=== PATIENT | female | born 1965 | race Caucasian/White ===

== ENCOUNTER 2016-09-19 21:35 | Inpatient (IN) | payer MEDICAID ==
[~2016-09-19] VITALS: Ht 170.2 cm; Wt 84.0 kg
[~2016-09-19 21:35] MED LIST: LISI-662 PO; METF500T4 PO; RISPC25 IM
[2016-09-19 22:11] LABS: GLUCOSE,POINT OF CARE 94 MG/DL (70-110)
[2016-09-19 22:58] LABS: BASOPHILS # (AUTO) 0.01 K/uL (0.00-0.20); BASOPHILS % (AUTO) 0.3 % (0.0-2.0); EOSINOPHILS # (AUTO) 0.08 K/uL (0.00-0.70); EOSINOPHILS % (AUTO) 1.55 % (1.0-6.0); HEMATOCRIT 38.5 % (36-46); HEMOGLOBIN 13.4 g/dL (12.0-16.0); LYMPHOCYTES # (AUTO) 1.3 K/uL (1.0-4.8); LYMPHOCYTES % (AUTO) 24.9 % (22.0-44.0); MEAN CORPUSCULAR HEMOGLOBIN 33.3 pg (26.0-34.0); MEAN CORPUSCULAR HGB CONC 34.8 G/dL (31.0-37.0); MEAN CORPUSCULAR VOLUME 96 fL (80-100); MONOCYTES # (AUTO) 0.4 K/uL (0.1-1.0); MONOCYTES % (AUTO) 7.4 % (2.0-9.0); NEUTROPHILS # (AUTO) 3.4 K/uL (1.8-7.7); NEUTROPHILS % (AUTO) 65.9 % (40.0-70.0); PLATELET COUNT (AUTO) 228 K/uL (150-450); RED BLOOD CELL COUNT(AUTO) 4.03 MIL/uL (4.00-5.20); RED CELL DISTRIBUTION WIDTH 13.2 % (11.5-14.5); WHITE BLOOD COUNT (AUTO) 5.2 K/uL (4.5-11.0)
[2016-09-19 23:07] LABS: ANION GAP 7 mmol/L (8-16); CALCIUM, TOTAL 9.3 mg/dL (8.8-10.5); CARBON DIOXIDE 27 mmol/L (22-29); CHLORIDE 102 mmol/L (98-107); CREATININE 0.78 mg/dL (0.60-1.30); GLOMERULAR FILTR. RATE CALC > 60 mL/min (>60); POTASSIUM 4.1 mmol/L (3.5-5.1); SODIUM SERUM 136 mmol/L (136-145); UREA NITROGEN, BLOOD 16 mg/dL (7-18)
[2016-09-19 23:14] LABS: ALANINE AMINOTRANSFERASE 19 U/L (12-78); ALBUMIN 3.7 g/dL (3.4-5.0); ASPARTATE AMINOTRANSFERASE 9 U/L (15-37); BILIRUBIN,TOTAL 0.3 mg/dL (0.1-1.0); TOTAL PROTEIN, SERUM 7.3 g/dL (6.4-8.2)
[2016-09-20] MEDS ORDERED: HALOPERIDOL 5 MG TABLET PO PRN (03:15)
[2016-09-20] MEDS ORDERED: ZOLPIDEM TARTRATE 10 MG TABLET PO PRN (03:15)
[2016-09-20 05:03] VITALS: BP 110/68
[2016-09-20] MEDS ORDERED: -PHARMACY VACCINE NOTE- MISC ONE ×2 (06:15)
[2016-09-20] MEDS ORDERED: INFLUENZA VIRUS VACCINE QVS 2016-17 (3YR+)/PF 60 MCG/0.5 ML SYRINGE IM ONE (06:15)
[2016-09-20 06:27] VITALS: BP 115/68
[2016-09-20 06:31] LABS: GLUCOSE,POINT OF CARE 91 MG/DL (70-110)
[2016-09-20] MEDS ORDERED: NICOTINE 14 MG/24 HOUR PATCH TD ONE (09:00)
[2016-09-20 16:09] VITALS: BP 124/68
[2016-09-21 08:15] VITALS: BP 125/65
[2016-09-21 16:05] VITALS: BP 121/69
[2016-09-21] MEDS: HALOPERIDOL 5 MG TABLET PO SCH (16:38)
[2016-09-21] MEDS: DIVALPROEX SODIUM 500 MG DR TABLET PO SCH (20:11)
[2016-09-22 08:01] VITALS: BP 142/77
[2016-09-22] MEDS: CITALOPRAM HYDROBROMIDE 20 MG TABLET PO SCH (08:28)
[2016-09-22] MEDS: LORazepam 2 MG TABLET PO PRN ×2 (08:28→17:04)
[2016-09-22] MEDS: HALOPERIDOL 5 MG TABLET PO SCH ×2 (08:29→17:04)
[2016-09-22 17:33] VITALS: BP 120/73
[2016-09-22] MEDS: DIVALPROEX SODIUM 500 MG DR TABLET PO SCH (20:47)
[2016-09-23 08:01] VITALS: BP 155/88
[2016-09-23] MEDS: CITALOPRAM HYDROBROMIDE 20 MG TABLET PO SCH (08:13)
[2016-09-23] MEDS: HALOPERIDOL 5 MG TABLET PO SCH ×2 (08:13→16:02)
[2016-09-23] MEDS ORDERED: ALBUTEROL SULFATE HFA 90 MCG/PUFF 8 GM INHALER IH PRN (16:00)
[2016-09-23] MEDS: LORazepam 2 MG TABLET PO PRN (16:22)
[2016-09-23 16:31] VITALS: BP 141/92
[2016-09-23] MEDS: DIVALPROEX SODIUM 500 MG DR TABLET PO SCH (20:12)
[2016-09-24] MEDS: HALOPERIDOL 5 MG TABLET PO SCH (08:00)
[2016-09-24] MEDS: CITALOPRAM HYDROBROMIDE 20 MG TABLET PO SCH (08:00)
[2016-09-24 08:25] VITALS: BP 133/83
[2016-09-24] MEDS: LORazepam 2 MG TABLET PO PRN (09:21)
[2016-09-24] MEDS ORDERED: DIVA500T35 PO (12:00)
[2016-09-24] MEDS ORDERED: HALO5 PO (12:00)
[2016-09-24] MEDS ORDERED: CITA20TA9 PO (12:00)
[2016-09-25] MEDS ORDERED: MULTIVITAMINS WITH MINERALS, THERAPEUTIC TABLET PO SCH (09:00)
== END 2016-09-24 15:38 | disposition home or self-care (01) | DRG 750 ==
LOC: EMS 21:37 → B3A 09-20 03:17
PROVIDERS: ADMIT Psychiatry & Neurology Psychiatry; ATTEND Psychiatry & Neurology Psychiatry
PROC: 3E0234Z Introduction of Serum, Toxoid and Vaccine into Muscle, Percutaneous Approach (ICD-10-PCS; principal; 2016-09-20)
DX: F20.0 Paranoid schizophrenia (principal); E11.65 Type 2 diabetes mellitus with hyperglycemia; R45.851 Suicidal ideations; I10 Essential (primary) hypertension; E11.319 Type 2 diabetes mellitus with unspecified diabetic retinopathy without macular edema; E66.9 Obesity, unspecified; G47.00 Insomnia, unspecified; H54.8 Legal blindness, as defined in USA; K59.00 Constipation, unspecified; L20.9 Atopic dermatitis, unspecified; F32.9 Major depressive disorder, single episode, unspecified; F17.210 Nicotine dependence, cigarettes, uncomplicated; Z98.890 Other specified postprocedural states; Z88.8 Allergy status to other drugs, medicaments and biological substances; Z79.899 Other long term (current) drug therapy; Z94.7 Corneal transplant status; Z23 Encounter for immunization; Z68.21 Body mass index [BMI] 21.0-21.9, adult
CPT/HCPCS: 82962; 90471; 96372; 99285; G0480; J3535

== ENCOUNTER 2016-10-08 21:07 | Emergency (ER) | payer MEDICAID ==
[~2016-10-08] VITALS: Ht 167.6 cm; Wt 86.0 kg
[~2016-10-08 21:07] MED LIST changes: +CITA20TA9 PO; +DIVA500T35 PO; +HALO5 PO; -LISI-662 PO; -METF500T4 PO; -RISPC25 IM
[2016-10-08] MEDS ORDERED: METF500T4 PO (22:53)
[2016-10-09] MEDS ORDERED: LORazepam 2 MG TABLET PO ONE (01:00)
[2016-10-09] MEDS ORDERED: ALBUTEROL SULFATE HFA 90 MCG/PUFF 8 GM INHALER IH ONE (01:00)
[2016-10-09 01:27] VITALS: BP 121/82
== END 2016-10-09 01:37 | disposition home or self-care (01) ==
LOC: EMS 21:09
DX: F20.0 Paranoid schizophrenia (principal); F41.9 Anxiety disorder, unspecified; F31.9 Bipolar disorder, unspecified; E11.9 Type 2 diabetes mellitus without complications; I10 Essential (primary) hypertension; F17.210 Nicotine dependence, cigarettes, uncomplicated; Z88.8 Allergy status to other drugs, medicaments and biological substances
CPT/HCPCS: 82962; 99284; 99406; J3535

== ENCOUNTER 2016-10-24 10:02 | Emergency (ER) | payer MEDICAID ==
[~2016-10-24] VITALS: Ht 170.2 cm; Wt 88.6 kg
[~2016-10-24 10:02] MED LIST changes: -CITA20TA9 PO; +METF500T4 PO
[2016-10-24 10:22] LABS: GLUCOSE,POINT OF CARE 127 MG/DL (70-110)
[2016-10-24] MEDS ORDERED: KETOROLAC TROMETHAMINE 60 MG/2 ML VIAL IM ONE (11:45)
[2016-10-24 12:18] LABS: BASOPHILS % (AUTO) 0.2 % (0.0-2.0); EOSINOPHILS % (AUTO) 5.8 % (1.0-6.0); HEMATOCRIT 35.1 % (36-46); HEMOGLOBIN 11.8 g/dL (12.0-16.0); LYMPHOCYTES # (AUTO) 0.7 K/uL (1.0-4.8); LYMPHOCYTES % (AUTO) 7.4 % (22.0-44.0); MEAN CORPUSCULAR HGB CONC 33.5 G/dL (31.0-37.0); MEAN CORPUSCULAR VOLUME 96 fL (80-100); MONOCYTES # (AUTO) 0.5 K/uL (0.1-1.0); MONOCYTES % (AUTO) 5.5 % (2.0-9.0); NEUTROPHILS # (AUTO) 7.3 K/uL (1.8-7.7); NEUTROPHILS % (AUTO) 81.1 % (40.0-70.0); PLATELET COUNT (AUTO) 331 K/uL (150-450); RED BLOOD CELL COUNT(AUTO) 3.67 MIL/uL (4.00-5.20)
[2016-10-24 12:25] LABS: ANION GAP 8 mmol/L (8-16); CALCIUM, TOTAL 8.7 mg/dL (8.8-10.5); CARBON DIOXIDE 29 mmol/L (22-29); CHLORIDE 101 mmol/L (98-107); CREATININE 0.61 mg/dL (0.60-1.30); GLOMERULAR FILTR. RATE CALC > 60 mL/min (>60); SODIUM SERUM 138 mmol/L (136-145); UREA NITROGEN, BLOOD 10 mg/dL (7-18)
[2016-10-24 12:32] LABS: ALANINE AMINOTRANSFERASE 14 U/L (12-78); ALBUMIN 2.4 g/dL (3.4-5.0); ASPARTATE AMINOTRANSFERASE 9 U/L (15-37); BILIRUBIN,TOTAL 0.2 mg/dL (0.1-1.0); TOTAL PROTEIN, SERUM 7.2 g/dL (6.4-8.2)
[2016-10-24 13:43] LABS: ERYTHROCYTE SEDIMENTATION RATE 113 MM/HR (0-20)
[2016-10-24] MEDS ORDERED: HYDROCODONE/ACETAMINOPHEN 5-325 MG TABLET PO ONE (14:00)
[2016-10-24 14:09] VITALS: BP 142/93
== END 2016-10-24 14:40 | disposition home or self-care (01) ==
LOC: EMS 10:04
DX: S86.811A Strain of other muscle(s) and tendon(s) at lower leg level, right leg, initial encounter (principal); I77.6 Arteritis, unspecified; I10 Essential (primary) hypertension; E11.9 Type 2 diabetes mellitus without complications; F17.200 Nicotine dependence, unspecified, uncomplicated; X58.XXXA Exposure to other specified factors, initial encounter; Y93.89 Activity, other specified; Y92.89 Other specified places as the place of occurrence of the external cause; Y99.8 Other external cause status
CPT/HCPCS: 36415; 80053; 82962; 85025; 85651; 96372; 99284; J1885

== ENCOUNTER 2016-10-25 10:34 | Emergency (ER) | payer MEDICAID ==
[~2016-10-25] VITALS: Ht 170.2 cm; Wt 84.1 kg
[2016-10-25 11:27] LABS: GLUCOSE,POINT OF CARE 147 MG/DL (70-110)
[2016-10-25 12:18] LABS: GLUCOSE, URINE (UA) NEGATIVE (NEGATIVE); KETONES,URINE NEGATIVE (NEGATIVE); LEUKOCYTE ESTERASE ,URINE TRACE (NEGATIVE); OCCULT BLOOD,URINE NEGATIVE (NEGATIVE); PROTEIN,URINE NEGATIVE (NEGATIVE)
[2016-10-25 12:33] LABS: APPEARANCE,URINE HAZY (CLEAR)
[2016-10-25 12:37] LABS: RBC,URINE 0-2 /HPF (0-2); SQUAMOUS EPITHELIAL CELL,UR Rare /LPF (None Seen)
[2016-10-25] MEDS ORDERED: MethylPREDNISolone SOD SUCC 125 MG/2 ML VIAL IVP ONE (13:45)
[2016-10-25] MEDS ORDERED: ACETAMINOPHEN 1000 MG/ISO-OSM 100 ML IV ONE (14:15)
[2016-10-25] MEDS ORDERED: KETOROLAC TROMETHAMINE 30 MG/ML VIAL IVP ONE (14:15)
[2016-10-25 14:26] LABS: EOSINOPHILS % (AUTO) 7.7 % (1.0-6.0); HEMATOCRIT 34.1 % (36-46); HEMOGLOBIN 11.2 g/dL (12.0-16.0); LYMPHOCYTES # (AUTO) 0.9 K/uL (1.0-4.8); LYMPHOCYTES % (AUTO) 9.8 % (22.0-44.0); MEAN CORPUSCULAR HEMOGLOBIN 31.4 pg (26.0-34.0); MEAN CORPUSCULAR HGB CONC 32.8 G/dL (31.0-37.0); MEAN CORPUSCULAR VOLUME 96 fL (80-100); MONOCYTES # (AUTO) 0.5 K/uL (0.1-1.0); NEUTROPHILS # (AUTO) 6.7 K/uL (1.8-7.7); NEUTROPHILS % (AUTO) 76.5 % (40.0-70.0); PLATELET COUNT (AUTO) 369 K/uL (150-450); RED BLOOD CELL COUNT(AUTO) 3.56 MIL/uL (4.00-5.20); RED CELL DISTRIBUTION WIDTH 12.7 % (11.5-14.5); WHITE BLOOD COUNT (AUTO) 8.8 K/uL (4.5-11.0)
[2016-10-25 14:36] LABS: ANION GAP 7 mmol/L (8-16); CALCIUM, TOTAL 8.8 mg/dL (8.8-10.5); CARBON DIOXIDE 28 mmol/L (22-29); CHLORIDE 102 mmol/L (98-107); CREATININE 0.54 mg/dL (0.60-1.30); GLOMERULAR FILTR. RATE CALC > 60 mL/min (>60); POTASSIUM 3.8 mmol/L (3.5-5.1); SODIUM SERUM 137 mmol/L (136-145); UREA NITROGEN, BLOOD 6 mg/dL (7-18)
[2016-10-25 14:44] LABS: ALANINE AMINOTRANSFERASE 13 U/L (12-78); ALBUMIN 2.4 g/dL (3.4-5.0); ASPARTATE AMINOTRANSFERASE 9 U/L (15-37); BILIRUBIN,TOTAL 0.2 mg/dL (0.1-1.0)
[2016-10-25 15:57] LABS: ERYTHROCYTE SEDIMENTATION RATE 110 MM/HR (0-20)
[2016-10-25] MEDS ORDERED: ONDANSETRON HCL 4 MG/2 ML VIAL IVP ONE ×2 (16:15→19:00)
[2016-10-25] MEDS ORDERED: MORPHINE SULFATE 10 MG/ML SYRINGE IVP ONE (16:15)
[2016-10-25] MEDS ORDERED: ONDANSETRON HCL 4 MG/2 ML VIAL IM ONE (18:45)
[2016-10-25] MEDS ORDERED: MORPHINE SULFATE 4 MG/ML SYRINGE IM ONE (18:45)
[2016-10-25] MEDS ORDERED: MORPHINE SULFATE 4 MG/ML SYRINGE IVP ONE (19:00)
[2016-10-25 19:06] LABS: GLUCOSE,POINT OF CARE 158 MG/DL (70-110)
[2016-10-25 19:30] VITALS: BP 155/81
== END 2016-10-25 19:31 | disposition home or self-care (01) ==
LOC: EMS 10:40
DX: M02.30 Reiter's disease, unspecified site (principal); R70.0 Elevated erythrocyte sedimentation rate; B36.9 Superficial mycosis, unspecified; I10 Essential (primary) hypertension; E11.9 Type 2 diabetes mellitus without complications; F17.210 Nicotine dependence, cigarettes, uncomplicated
CPT/HCPCS: 36415; 80053; 81001; 82962; 85025; 85651; 96361; 96374; 96375; 96376; 99284; 99406; J0131; J1885; J2270 ×2; J2405; J2930

== ENCOUNTER 2016-11-05 22:15 | Emergency (ER) | payer MEDICAID ==
[~2016-11-05] VITALS: Ht 170.2 cm; Wt 84.0 kg
[2016-11-05 22:36] LABS: GLUCOSE,POINT OF CARE 100 MG/DL (70-110)
[2016-11-06] MEDS ORDERED: LISINOPRIL 10 MG TABLET PO ONE (03:30)
[2016-11-06 04:03] VITALS: BP 142/88
== END 2016-11-06 04:14 | disposition home or self-care (01) ==
LOC: EMS 22:19
DX: Z76.0 Encounter for issue of repeat prescription (principal); E11.319 Type 2 diabetes mellitus with unspecified diabetic retinopathy without macular edema; I10 Essential (primary) hypertension; G89.4 Chronic pain syndrome; E66.9 Obesity, unspecified; F17.210 Nicotine dependence, cigarettes, uncomplicated; Z68.29 Body mass index [BMI] 29.0-29.9, adult; Z88.8 Allergy status to other drugs, medicaments and biological substances
CPT/HCPCS: 82962; 99283

== ENCOUNTER 2016-11-20 16:20 | Inpatient (IN) | payer MEDICAID ==
[~2016-11-20] VITALS: Ht 170.2 cm; Wt 95.2 kg
[2016-11-20 17:03] LABS: ANION GAP 8 mmol/L (8-16); CALCIUM, TOTAL 8.9 mg/dL (8.8-10.5); CARBON DIOXIDE 27 mmol/L (22-29); CHLORIDE 103 mmol/L (98-107); CREATININE 0.71 mg/dL (0.60-1.30); GLOMERULAR FILTR. RATE CALC > 60 mL/min (>60); POTASSIUM 3.8 mmol/L (3.5-5.1); SODIUM SERUM 138 mmol/L (136-145); UREA NITROGEN, BLOOD 7 mg/dL (7-18)
[2016-11-20 17:05] LABS: BASOPHILS % (AUTO) 0.4 % (0.0-2.0); EOSINOPHILS % (AUTO) 1.3 % (1.0-6.0); HEMATOCRIT 39.1 % (36-46); HEMOGLOBIN 13.1 g/dL (12.0-16.0); LYMPHOCYTES # (AUTO) 1.2 K/uL (1.0-4.8); LYMPHOCYTES % (AUTO) 21.5 % (22.0-44.0); MEAN CORPUSCULAR HEMOGLOBIN 31.3 pg (26.0-34.0); MEAN CORPUSCULAR HGB CONC 33.5 G/dL (31.0-37.0); MEAN CORPUSCULAR VOLUME 93 fL (80-100); MONOCYTES # (AUTO) 0.3 K/uL (0.1-1.0); NEUTROPHILS # (AUTO) 4.1 K/uL (1.8-7.7); NEUTROPHILS % (AUTO) 70.8 % (40.0-70.0); RED BLOOD CELL COUNT(AUTO) 4.19 MIL/uL (4.00-5.20); RED CELL DISTRIBUTION WIDTH 13.7 % (11.5-14.5)
[2016-11-20 17:07] LABS: WHITE BLOOD COUNT (AUTO) 6.6 K/uL (4.5-11.0)
[2016-11-20 17:09] LABS: ALANINE AMINOTRANSFERASE 20 U/L (12-78); ALBUMIN 3.6 g/dL (3.4-5.0); ASPARTATE AMINOTRANSFERASE 10 U/L (15-37); BILIRUBIN,TOTAL 0.3 mg/dL (0.1-1.0); TOTAL PROTEIN, SERUM 7.3 g/dL (6.4-8.2)
[2016-11-20 17:22] LABS: VALPROIC ACID < 3 mcg/mL (50-100)
[2016-11-20] MEDS ORDERED: ZOLPIDEM TARTRATE 10 MG TABLET PO PRN (17:30)
[2016-11-20] MEDS ORDERED: LORazepam 1 MG TABLET PO ONE (17:45)
[2016-11-20] MEDS ORDERED: HALOPERIDOL 5 MG TABLET PO ONE (17:45)
[2016-11-20 17:49] LABS: PLATELET COUNT (AUTO) 269 K/uL (150-450)
[2016-11-20] MEDS ORDERED: INFLUENZA VIRUS VACCINE QVS 2016-17 (3YR+)/PF 60 MCG/0.5 ML SYRINGE IM ONE (18:30)
[2016-11-20 19:38] VITALS: BP 129/71
[2016-11-20 23:33] LABS: ADD UA MICROSCOPIC NO; APPEARANCE,URINE CLEAR (CLEAR); GLUCOSE, URINE (UA) NEGATIVE (NEGATIVE); KETONES,URINE NEGATIVE (NEGATIVE); LEUKOCYTE ESTERASE ,URINE NEGATIVE (NEGATIVE); OCCULT BLOOD,URINE NEGATIVE (NEGATIVE); PH,URINE 6.5 (5.0-8.0); PROTEIN,URINE NEGATIVE (NEGATIVE)
[2016-11-21 10:15] VITALS: BP 139/76
[2016-11-21] MEDS: MULTIVITAMINS WITH MINERALS, THERAPEUTIC TABLET PO SCH (10:23)
[2016-11-21] MEDS: NICOTINE 14 MG/24 HOUR PATCH TD SCH (10:26)
[2016-11-21] MEDS: HALOPERIDOL 5 MG TABLET PO PRN (10:55)
[2016-11-21] MEDS: LORazepam 2 MG TABLET PO PRN ×2 (10:55→17:04)
[2016-11-21 12:00] VITALS: BP 126/77
[2016-11-21 12:15] VITALS: BP 98/58
[2016-11-21 12:43] VITALS: BP 129/107
[2016-11-21 16:33] VITALS: BP 108/58
[2016-11-21] MEDS: HALOPERIDOL 5 MG TABLET PO SCH (16:43)
[2016-11-21 17:02] VITALS: BP 117/73
[2016-11-21 17:22] LABS: GLUCOSE,POINT OF CARE 96 MG/DL (70-110)
[2016-11-21] MEDS ORDERED: IBUPROFEN 400 MG TABLET PO PRN (17:45)
[2016-11-21] MEDS ORDERED: ALBUTEROL SULFATE HFA 90 MCG/PUFF 8 GM INHALER IH PRN (17:45)
[2016-11-21] MEDS ORDERED: ACETAMINOPHEN 325 MG TABLET PO PRN (17:45)
[2016-11-22] MEDS: MULTIVITAMINS WITH MINERALS, THERAPEUTIC TABLET PO SCH ×2 (09:00→10:21)
[2016-11-22] MEDS: HALOPERIDOL 5 MG TABLET PO SCH ×4 (09:00→16:30)
[2016-11-22] MEDS: OMEPRAZOLE 20 MG CAPSULE PO SCH ×2 (09:00→10:21)
[2016-11-22] MEDS: NICOTINE 14 MG/24 HOUR PATCH TD SCH (10:20)
[2016-11-22 11:21] LABS: GLUCOSE,POINT OF CARE 96 MG/DL (70-110)
[2016-11-22] MEDS ORDERED: HALOPERIDOL DECANOATE 100 MG/ML VIAL IM SCH (12:15)
[2016-11-22] MEDS: LORazepam 2 MG TABLET PO PRN (12:52)
[2016-11-22] MEDS: HALOPERIDOL 5 MG TABLET PO PRN (12:52)
[2016-11-22 16:32] LABS: GLUCOSE,POINT OF CARE 133 MG/DL (70-110)
[2016-11-22 16:43] VITALS: BP 118/79
[2016-11-22] MEDS: DIVALPROEX SODIUM 500 MG ER TABLET PO SCH (20:59)
[2016-11-23] MEDS: LORazepam 2 MG TABLET PO PRN ×2 (03:14→15:52)
[2016-11-23 03:29] VITALS: BP 142/82
[2016-11-23] MEDS: CITALOPRAM HYDROBROMIDE 20 MG TABLET PO SCH (09:36)
[2016-11-23] MEDS: MULTIVITAMINS WITH MINERALS, THERAPEUTIC TABLET PO SCH (09:36)
[2016-11-23] MEDS: OMEPRAZOLE 20 MG CAPSULE PO SCH (09:36)
[2016-11-23] MEDS: HALOPERIDOL 5 MG TABLET PO SCH ×2 (09:36→15:52)
[2016-11-23] MEDS: NICOTINE 14 MG/24 HOUR PATCH TD SCH (09:40)
[2016-11-23 16:22] LABS: GLUCOSE COMMENT 1 Received Meds; GLUCOSE,POINT OF CARE 159 MG/DL (70-110)
[2016-11-23 16:24] VITALS: BP 150/81
[2016-11-23] MEDS ORDERED: LOPERAMIDE HCL 2 MG CAPSULE PO PRN (19:00)
[2016-11-23] MEDS: DIVALPROEX SODIUM 500 MG ER TABLET PO SCH (20:02)
[2016-11-24] MEDS: CITALOPRAM HYDROBROMIDE 20 MG TABLET PO SCH (08:49)
[2016-11-24] MEDS: MULTIVITAMINS WITH MINERALS, THERAPEUTIC TABLET PO SCH (08:49)
[2016-11-24] MEDS: HALOPERIDOL 5 MG TABLET PO SCH ×2 (08:49→17:50)
[2016-11-24] MEDS: OMEPRAZOLE 20 MG CAPSULE PO SCH (08:49)
[2016-11-24] MEDS: NICOTINE 14 MG/24 HOUR PATCH TD SCH (08:53)
[2016-11-24 11:26] VITALS: BP 127/93
[2016-11-24 11:27] LABS: GLUCOSE,POINT OF CARE 98 MG/DL (70-110)
[2016-11-24] MEDS: LORazepam 2 MG TABLET PO PRN (12:31)
[2016-11-24] MEDS: HALOPERIDOL 5 MG TABLET PO PRN (14:15)
[2016-11-24 16:41] VITALS: BP 126/78
[2016-11-24] MEDS: DIVALPROEX SODIUM 500 MG ER TABLET PO SCH (21:00)
[2016-11-25 05:12] LABS: GLUCOSE,POINT OF CARE 91 MG/DL (70-110)
[2016-11-25] MEDS: MULTIVITAMINS WITH MINERALS, THERAPEUTIC TABLET PO SCH (09:27)
[2016-11-25] MEDS: OMEPRAZOLE 20 MG CAPSULE PO SCH (09:27)
[2016-11-25] MEDS: HALOPERIDOL 5 MG TABLET PO SCH ×3 (09:27→16:54)
[2016-11-25] MEDS: CITALOPRAM HYDROBROMIDE 20 MG TABLET PO SCH (09:28)
[2016-11-25] MEDS: NICOTINE 14 MG/24 HOUR PATCH TD SCH (09:29)
[2016-11-25] MEDS: LORazepam 2 MG TABLET PO PRN ×2 (10:43→16:55)
[2016-11-25] MEDS: HALOPERIDOL 5 MG TABLET PO PRN (10:44)
[2016-11-25 14:27] LABS: GLUCOSE,POINT OF CARE 89 MG/DL (70-110)
[2016-11-25 17:02] LABS: GLUCOSE COMMENT 1 FASTING; GLUCOSE,POINT OF CARE 86 MG/DL (70-110)
[2016-11-25] MEDS: DIVALPROEX SODIUM 500 MG ER TABLET PO SCH (21:21)
[2016-11-26] MEDS: OMEPRAZOLE 20 MG CAPSULE PO SCH (09:58)
[2016-11-26] MEDS: MULTIVITAMINS WITH MINERALS, THERAPEUTIC TABLET PO SCH (09:58)
[2016-11-26] MEDS: HALOPERIDOL 5 MG TABLET PO SCH (09:58)
[2016-11-26] MEDS: NICOTINE 14 MG/24 HOUR PATCH TD SCH (09:58)
[2016-11-26] MEDS: CITALOPRAM HYDROBROMIDE 20 MG TABLET PO SCH (09:58)
[2016-11-26] MEDS: LORazepam 2 MG TABLET PO PRN ×2 (10:09→14:20)
[2016-11-26 11:57] LABS: GLUCOSE,POINT OF CARE 107 MG/DL (70-110)
[2016-11-26] MEDS ORDERED: CITA20TA9 PO (13:36)
[2016-11-26] MEDS ORDERED: DIVA500T52 PO (13:37)
[2016-11-26] MEDS ORDERED: HALO5 PO (13:37)
[2016-11-26] MEDS ORDERED: HALOD100I IM (13:46)
[2016-11-26] MEDS ORDERED: MV-M1TAB2 PO (13:47)
[2016-11-26] MEDS ORDERED: OMEP20 PO (13:48)
[2016-11-26] MEDS: HALOPERIDOL 5 MG TABLET PO PRN (14:19)
== END 2016-11-26 14:45 | disposition home or self-care (01) | DRG 750 ==
LOC: EMS 16:24 → 3EI 19:00
PROVIDERS: ADMIT Psychiatry & Neurology Child & Adolescent Psychiatry; ATTEND Psychiatry & Neurology Child & Adolescent Psychiatry
PROC: 3E0234Z Introduction of Serum, Toxoid and Vaccine into Muscle, Percutaneous Approach (ICD-10-PCS; principal; 2016-11-20)
DX: F20.0 Paranoid schizophrenia (principal); R45.851 Suicidal ideations; J44.9 Chronic obstructive pulmonary disease, unspecified; E11.319 Type 2 diabetes mellitus with unspecified diabetic retinopathy without macular edema; E66.9 Obesity, unspecified; H54.8 Legal blindness, as defined in USA; J11.1 Influenza due to unidentified influenza virus with other respiratory manifestations; I10 Essential (primary) hypertension; H35.30 Unspecified macular degeneration; F17.210 Nicotine dependence, cigarettes, uncomplicated; K21.9 Gastro-esophageal reflux disease without esophagitis; E78.5 Hyperlipidemia, unspecified; Z94.7 Corneal transplant status; Z91.19 Patient's noncompliance with other medical treatment and regimen; Z68.32 Body mass index [BMI] 32.0-32.9, adult; Z91.5 Personal history of self-harm; Z23 Encounter for immunization
CPT/HCPCS: 82962; 99285; G0480; J1631; J3535

== ENCOUNTER 2016-12-16 14:03 | Inpatient (IN) | payer MEDICAID ==
[~2016-12-16] VITALS: Ht 167.6 cm; Wt 89.9 kg
[~2016-12-16 14:03] MED LIST changes: +CITA20TA9 PO; -DIVA500T35 PO; +DIVA500T52 PO; +HALOD100I IM; -METF500T4 PO; +MV-M1TAB2 PO; +OMEP20 PO
[2016-12-16 14:25] LABS: BASOPHILS % (AUTO) 0.3 % (0.0-2.0); EOSINOPHILS % (AUTO) 0.9 % (1.0-6.0); HEMATOCRIT 43.4 % (36-46); HEMOGLOBIN 14.1 g/dL (12.0-16.0); LYMPHOCYTES # (AUTO) 1.1 K/uL (1.0-4.8); LYMPHOCYTES % (AUTO) 14.7 % (22.0-44.0); MEAN CORPUSCULAR HEMOGLOBIN 30.4 pg (26.0-34.0); MEAN CORPUSCULAR HGB CONC 32.5 G/dL (31.0-37.0); MEAN CORPUSCULAR VOLUME 94 fL (80-100); MONOCYTES # (AUTO) 0.3 K/uL (0.1-1.0); MONOCYTES % (AUTO) 4.6 % (2.0-9.0); NEUTROPHILS % (AUTO) 79.5 % (40.0-70.0); PLATELET COUNT (AUTO) 335 K/uL (150-450); RED BLOOD CELL COUNT(AUTO) 4.63 MIL/uL (4.00-5.20); RED CELL DISTRIBUTION WIDTH 14.3 % (11.5-14.5); WHITE BLOOD COUNT (AUTO) 7.5 K/uL (4.5-11.0)
[2016-12-16 14:35] LABS: ANION GAP 11 mmol/L (8-16); CALCIUM, TOTAL 9.3 mg/dL (8.8-10.5); CARBON DIOXIDE 26 mmol/L (22-29); CHLORIDE 102 mmol/L (98-107); CREATININE 0.68 mg/dL (0.60-1.30); GLOMERULAR FILTR. RATE CALC > 60 mL/min (>60); POTASSIUM 3.8 mmol/L (3.5-5.1); SODIUM SERUM 139 mmol/L (136-145); UREA NITROGEN, BLOOD 10 mg/dL (7-18)
[2016-12-16 14:37] LABS: GLUCOSE,POINT OF CARE 110 MG/DL (70-110)
[2016-12-16 14:41] LABS: ALANINE AMINOTRANSFERASE 20 U/L (12-78); ALBUMIN 3.8 g/dL (3.4-5.0); ASPARTATE AMINOTRANSFERASE 7 U/L (15-37); BILIRUBIN,TOTAL 0.3 mg/dL (0.1-1.0); TOTAL PROTEIN, SERUM 7.5 g/dL (6.4-8.2)
[2016-12-16 14:44] LABS: VALPROIC ACID < 3 mcg/mL (50-100)
[2016-12-16] MEDS ORDERED: NICO1PAT25 TD (15:25)
[2016-12-16] MEDS ORDERED: OMEP20 PO (15:25)
[2016-12-16] MEDS ORDERED: HYDR-4031 PO (15:25)
[2016-12-16] MEDS ORDERED: METF500T4 PO (15:25)
[2016-12-16] MEDS ORDERED: ALBU8HFA4 IH (15:25)
[2016-12-16] MEDS ORDERED: VITAD1000 PO (15:25)
[2016-12-16] MEDS ORDERED: LISI-662 PO (15:25)
[2016-12-16] MEDS ORDERED: LORazepam 2 MG TABLET PO ONE (18:00)
[2016-12-16] MEDS: HALOPERIDOL 5 MG TABLET PO SCH (20:01)
[2016-12-16] MEDS: DIVALPROEX SODIUM 500 MG ER TABLET PO SCH (20:02)
[2016-12-16 20:03] VITALS: BP 150/86
[2016-12-16 20:06] LABS: GLUCOSE,POINT OF CARE 112 MG/DL (70-110)
[2016-12-16 21:05] VITALS: BP 142/78
[2016-12-17 06:17] VITALS: BP 140/76
[2016-12-17] MEDS: MetFORMIN HCL 500 MG TABLET PO SCH ×2 (07:00→16:52)
[2016-12-17] MEDS: MULTIVITAMINS, THERAPEUTIC TABLET PO SCH (08:25)
[2016-12-17] MEDS: LISINOPRIL 20 MG TABLET PO SCH (08:25)
[2016-12-17] MEDS: CITALOPRAM HYDROBROMIDE 20 MG TABLET PO SCH (08:25)
[2016-12-17] MEDS: OMEPRAZOLE 20 MG CAPSULE PO SCH (08:25)
[2016-12-17] MEDS: HALOPERIDOL 5 MG TABLET PO SCH ×2 (08:25→16:53)
[2016-12-17] MEDS: CHOLECALCIFEROL (VIT D3) 1,000 UNITS TABLET PO SCH (08:25)
[2016-12-17] MEDS: NICOTINE 7 MG/24 HOUR PATCH TD SCH (08:26)
[2016-12-17] MEDS: LORazepam 2 MG TABLET PO PRN (15:52)
[2016-12-17 16:00] VITALS: BP 129/65
[2016-12-17] MEDS: DIVALPROEX SODIUM 500 MG ER TABLET PO SCH (20:38)
[2016-12-18 00:02] VITALS: BP 101/71
[2016-12-18] MEDS: MetFORMIN HCL 500 MG TABLET PO SCH ×2 (06:37→17:10)
[2016-12-18 08:27] VITALS: BP 122/72
[2016-12-18] MEDS: CHOLECALCIFEROL (VIT D3) 1,000 UNITS TABLET PO SCH (08:55)
[2016-12-18] MEDS: CITALOPRAM HYDROBROMIDE 20 MG TABLET PO SCH (08:55)
[2016-12-18] MEDS: HALOPERIDOL 5 MG TABLET PO SCH ×2 (08:55→17:10)
[2016-12-18] MEDS: MULTIVITAMINS, THERAPEUTIC TABLET PO SCH (08:55)
[2016-12-18] MEDS: OMEPRAZOLE 20 MG CAPSULE PO SCH (08:55)
[2016-12-18] MEDS: LISINOPRIL 20 MG TABLET PO SCH (08:56)
[2016-12-18] MEDS: NICOTINE 7 MG/24 HOUR PATCH TD SCH (08:57)
[2016-12-18] MEDS: LORazepam 2 MG TABLET PO PRN (13:18)
[2016-12-18] MEDS: DIVALPROEX SODIUM 500 MG ER TABLET PO SCH (20:50)
[2016-12-19] MEDS: MetFORMIN HCL 500 MG TABLET PO SCH ×2 (06:12→17:03)
[2016-12-19 07:17] LABS: GLUCOSE,POINT OF CARE 177 MG/DL (70-110)
[2016-12-19 08:12] VITALS: BP 104/72
[2016-12-19] MEDS: OMEPRAZOLE 20 MG CAPSULE PO SCH (08:47)
[2016-12-19] MEDS: LISINOPRIL 20 MG TABLET PO SCH (08:47)
[2016-12-19] MEDS: CITALOPRAM HYDROBROMIDE 20 MG TABLET PO SCH (08:47)
[2016-12-19] MEDS: CHOLECALCIFEROL (VIT D3) 1,000 UNITS TABLET PO SCH (08:47)
[2016-12-19] MEDS: MULTIVITAMINS, THERAPEUTIC TABLET PO SCH (08:47)
[2016-12-19] MEDS: NICOTINE 7 MG/24 HOUR PATCH TD SCH (08:48)
[2016-12-19] MEDS: HALOPERIDOL 5 MG TABLET PO SCH ×2 (08:50→17:03)
[2016-12-19 08:53] VITALS: BP 119/79
[2016-12-19] MEDS: LORazepam 2 MG TABLET PO PRN ×2 (13:08→17:54)
[2016-12-19 17:36] VITALS: BP 117/79
[2016-12-19] MEDS: DIVALPROEX SODIUM 500 MG ER TABLET PO SCH (20:31)
[2016-12-20 05:55] VITALS: BP 129/74
[2016-12-20] MEDS: MetFORMIN HCL 500 MG TABLET PO SCH ×2 (07:00→16:33)
[2016-12-20 08:55] VITALS: BP 134/90
[2016-12-20] MEDS: LISINOPRIL 20 MG TABLET PO SCH (08:56)
[2016-12-20] MEDS: HALOPERIDOL 5 MG TABLET PO SCH ×2 (08:56→16:33)
[2016-12-20] MEDS: CHOLECALCIFEROL (VIT D3) 1,000 UNITS TABLET PO SCH (08:56)
[2016-12-20] MEDS: OMEPRAZOLE 20 MG CAPSULE PO SCH (08:56)
[2016-12-20] MEDS: CITALOPRAM HYDROBROMIDE 20 MG TABLET PO SCH (08:57)
[2016-12-20] MEDS: NICOTINE 7 MG/24 HOUR PATCH TD SCH (09:02)
[2016-12-20] MEDS: MULTIVITAMINS, THERAPEUTIC TABLET PO SCH (09:03)
[2016-12-20] MEDS: LORazepam 2 MG TABLET PO PRN (09:33)
[2016-12-20] MEDS ORDERED: TUBERCULIN, PURIFIED PROTEIN DERIVATIVE 5 TU/0.1 ML SYG ID ONE (10:30)
[2016-12-20 12:40] VITALS: BP 101/59
[2016-12-20 16:17] VITALS: BP 111/83
[2016-12-20 16:42] LABS: GLUCOSE COMMENT 1 Received Meds; GLUCOSE,POINT OF CARE 139 MG/DL (70-110)
[2016-12-20] MEDS: DIVALPROEX SODIUM 500 MG ER TABLET PO SCH (20:28)
[2016-12-20] MEDS: ZOLPIDEM TARTRATE 10 MG TABLET PO PRN (20:38)
[2016-12-21] MEDS: MetFORMIN HCL 500 MG TABLET PO SCH ×2 (06:35→16:18)
[2016-12-21] MEDS: NICOTINE 7 MG/24 HOUR PATCH TD SCH (08:37)
[2016-12-21] MEDS: LISINOPRIL 20 MG TABLET PO SCH (08:37)
[2016-12-21] MEDS: OMEPRAZOLE 20 MG CAPSULE PO SCH (08:38)
[2016-12-21] MEDS: CITALOPRAM HYDROBROMIDE 20 MG TABLET PO SCH (08:38)
[2016-12-21] MEDS: CHOLECALCIFEROL (VIT D3) 1,000 UNITS TABLET PO SCH (08:38)
[2016-12-21] MEDS: HALOPERIDOL 5 MG TABLET PO SCH ×2 (08:38→16:18)
[2016-12-21] MEDS: MULTIVITAMINS, THERAPEUTIC TABLET PO SCH (08:38)
[2016-12-21 08:41] VITALS: BP 133/113
[2016-12-21] MEDS: LORazepam 2 MG TABLET PO PRN (08:48)
[2016-12-21 10:00] VITALS: BP 126/78
[2016-12-21 16:00] VITALS: BP 115/78
[2016-12-21] MEDS: ZOLPIDEM TARTRATE 10 MG TABLET PO PRN ×2 (16:39→20:53)
[2016-12-21] MEDS: DIVALPROEX SODIUM 500 MG ER TABLET PO SCH (20:45)
[2016-12-22 06:00] VITALS: BP 109/79
[2016-12-22] MEDS: MetFORMIN HCL 500 MG TABLET PO SCH ×2 (07:30→16:53)
[2016-12-22 08:57] VITALS: BP 147/89
[2016-12-22] MEDS: LISINOPRIL 20 MG TABLET PO SCH (09:06)
[2016-12-22] MEDS: HALOPERIDOL 5 MG TABLET PO SCH ×2 (09:07→16:54)
[2016-12-22] MEDS: MULTIVITAMINS, THERAPEUTIC TABLET PO SCH (09:07)
[2016-12-22] MEDS: CITALOPRAM HYDROBROMIDE 20 MG TABLET PO SCH (09:07)
[2016-12-22] MEDS: CHOLECALCIFEROL (VIT D3) 1,000 UNITS TABLET PO SCH (09:07)
[2016-12-22] MEDS: NICOTINE 7 MG/24 HOUR PATCH TD SCH (09:07)
[2016-12-22] MEDS: OMEPRAZOLE 20 MG CAPSULE PO SCH (09:07)
[2016-12-22] MEDS: HALOPERIDOL 5 MG TABLET PO PRN (14:01)
[2016-12-22] MEDS: LORazepam 2 MG TABLET PO PRN ×2 (14:01→18:45)
[2016-12-22 14:07] VITALS: BP 103/60
[2016-12-22 16:00] VITALS: BP 110/68
[2016-12-22] MEDS: DIVALPROEX SODIUM 500 MG ER TABLET PO SCH (20:12)
[2016-12-22] MEDS: ZOLPIDEM TARTRATE 10 MG TABLET PO PRN (20:34)
[2016-12-23] VITALS (9 sets, daily range): BP systolic 103–126; BP diastolic 63–74
[2016-12-23] MEDS: MetFORMIN HCL 500 MG TABLET PO SCH ×2 (06:30→16:56)
[2016-12-23] MEDS: CHOLECALCIFEROL (VIT D3) 1,000 UNITS TABLET PO SCH (09:22)
[2016-12-23] MEDS: LISINOPRIL 20 MG TABLET PO SCH (09:23)
[2016-12-23] MEDS: HALOPERIDOL 5 MG TABLET PO SCH ×2 (09:23→16:56)
[2016-12-23] MEDS: CITALOPRAM HYDROBROMIDE 20 MG TABLET PO SCH (09:23)
[2016-12-23] MEDS: MULTIVITAMINS, THERAPEUTIC TABLET PO SCH (09:23)
[2016-12-23] MEDS: OMEPRAZOLE 20 MG CAPSULE PO SCH (09:23)
[2016-12-23] MEDS: NICOTINE 7 MG/24 HOUR PATCH TD SCH (09:24)
[2016-12-23 10:46] LABS: GLUCOSE,POINT OF CARE 145 MG/DL (70-110)
[2016-12-23] MEDS ORDERED: LOPERAMIDE HCL 2 MG CAPSULE PO PRN (12:15)
[2016-12-23] MEDS: LORazepam 2 MG TABLET PO PRN ×2 (16:56→21:49)
[2016-12-23] MEDS: HALOPERIDOL 5 MG TABLET PO PRN (17:40)
[2016-12-23] MEDS: DIVALPROEX SODIUM 500 MG ER TABLET PO SCH (20:06)
[2016-12-23] MEDS: ZOLPIDEM TARTRATE 10 MG TABLET PO PRN (21:28)
[2016-12-24 05:52] VITALS: BP 122/78
[2016-12-24] MEDS: MetFORMIN HCL 500 MG TABLET PO SCH ×2 (06:14→16:55)
[2016-12-24 08:37] VITALS: BP 132/78
[2016-12-24] MEDS: NICOTINE 7 MG/24 HOUR PATCH TD SCH (08:39)
[2016-12-24] MEDS: MULTIVITAMINS, THERAPEUTIC TABLET PO SCH (08:39)
[2016-12-24] MEDS: CHOLECALCIFEROL (VIT D3) 1,000 UNITS TABLET PO SCH (08:40)
[2016-12-24] MEDS: CITALOPRAM HYDROBROMIDE 20 MG TABLET PO SCH (08:40)
[2016-12-24] MEDS: LISINOPRIL 20 MG TABLET PO SCH (08:40)
[2016-12-24] MEDS: OMEPRAZOLE 20 MG CAPSULE PO SCH (08:40)
[2016-12-24] MEDS: HALOPERIDOL 5 MG TABLET PO SCH ×2 (08:40→16:55)
[2016-12-24] MEDS: LORazepam 2 MG TABLET PO PRN ×2 (10:02→20:56)
[2016-12-24 11:47] LABS: GLUCOSE,POINT OF CARE 110 MG/DL (70-110)
[2016-12-24] MEDS ORDERED: NICO14T TD (13:31)
[2016-12-24 16:13] VITALS: BP 108/66
[2016-12-24] MEDS: DIVALPROEX SODIUM 500 MG ER TABLET PO SCH (20:56)
[2016-12-24] MEDS: HALOPERIDOL 5 MG TABLET PO PRN (20:58)
[2016-12-25 06:27] VITALS: BP 128/74
[2016-12-25] MEDS: MetFORMIN HCL 500 MG TABLET PO SCH ×2 (07:00→17:48)
[2016-12-25 08:20] LABS: ALANINE AMINOTRANSFERASE 17 U/L (12-78); ANION GAP 5 mmol/L (8-16); ASPARTATE AMINOTRANSFERASE 5 U/L (15-37); BASOPHILS % (AUTO) 0.1 % (0.0-2.0); BILIRUBIN,TOTAL 0.3 mg/dL (0.1-1.0); CALCIUM, TOTAL 8.8 mg/dL (8.8-10.5); CARBON DIOXIDE 29 mmol/L (22-29); CHLORIDE 100 mmol/L (98-107); CREATININE 0.49 mg/dL (0.60-1.30); EOSINOPHILS % (AUTO) 3.1 % (1.0-6.0); GLOMERULAR FILTR. RATE CALC > 60 mL/min (>60); HEMATOCRIT 38.3 % (36-46); HEMOGLOBIN 12.6 g/dL (12.0-16.0); LYMPHOCYTES # (AUTO) 1.5 K/uL (1.0-4.8); MEAN CORPUSCULAR HEMOGLOBIN 30.8 pg (26.0-34.0); MEAN CORPUSCULAR VOLUME 93 fL (80-100); MONOCYTES # (AUTO) 0.3 K/uL (0.1-1.0); MONOCYTES % (AUTO) 7.2 % (2.0-9.0); NEUTROPHILS # (AUTO) 2.7 K/uL (1.8-7.7); NEUTROPHILS % (AUTO) 57.6 % (40.0-70.0); PLATELET COUNT (AUTO) 168 K/uL (150-450); POTASSIUM 3.8 mmol/L (3.5-5.1); SODIUM SERUM 134 mmol/L (136-145); TOTAL PROTEIN, SERUM 6.2 g/dL (6.4-8.2); UREA NITROGEN, BLOOD 14 mg/dL (7-18); VALPROIC ACID 86 mcg/mL (50-100); WHITE BLOOD COUNT (AUTO) 4.8 K/uL (4.5-11.0)
[2016-12-25 08:32] VITALS: BP 124/70
[2016-12-25] MEDS: NICOTINE 7 MG/24 HOUR PATCH TD SCH ×4 (09:00→12:32)
[2016-12-25] MEDS: CITALOPRAM HYDROBROMIDE 20 MG TABLET PO SCH (09:58)
[2016-12-25] MEDS: CHOLECALCIFEROL (VIT D3) 1,000 UNITS TABLET PO SCH (09:58)
[2016-12-25] MEDS: MULTIVITAMINS, THERAPEUTIC TABLET PO SCH (09:58)
[2016-12-25] MEDS: OMEPRAZOLE 20 MG CAPSULE PO SCH (09:59)
[2016-12-25] MEDS: LORazepam 2 MG TABLET PO PRN ×2 (09:59→17:49)
[2016-12-25] MEDS: HALOPERIDOL 5 MG TABLET PO SCH ×2 (09:59→17:49)
[2016-12-25] MEDS: LISINOPRIL 20 MG TABLET PO SCH (10:00)
[2016-12-25 16:00] VITALS: BP 110/64
[2016-12-25] MEDS: DIVALPROEX SODIUM 500 MG ER TABLET PO SCH (20:54)
[2016-12-25] MEDS: ZOLPIDEM TARTRATE 10 MG TABLET PO PRN (20:54)
[2016-12-26 06:40] VITALS: BP 135/69
[2016-12-26] MEDS: MetFORMIN HCL 500 MG TABLET PO SCH ×2 (06:58→17:04)
[2016-12-26 08:25] VITALS: BP 133/86
[2016-12-26] MEDS: NICOTINE 7 MG/24 HOUR PATCH TD SCH (08:48)
[2016-12-26] MEDS: OMEPRAZOLE 20 MG CAPSULE PO SCH (08:48)
[2016-12-26] MEDS: CHOLECALCIFEROL (VIT D3) 1,000 UNITS TABLET PO SCH (08:49)
[2016-12-26] MEDS: HALOPERIDOL 5 MG TABLET PO SCH ×2 (08:49→17:03)
[2016-12-26] MEDS: CITALOPRAM HYDROBROMIDE 20 MG TABLET PO SCH (08:49)
[2016-12-26] MEDS: LISINOPRIL 20 MG TABLET PO SCH (08:49)
[2016-12-26] MEDS: MULTIVITAMINS, THERAPEUTIC TABLET PO SCH (08:49)
[2016-12-26] MEDS: LORazepam 2 MG TABLET PO PRN (10:18)
[2016-12-26 16:00] VITALS: BP 93/66
[2016-12-26] MEDS: ALBUTEROL SULFATE HFA 90 MCG/PUFF 8 GM INHALER IH PRN (19:30)
[2016-12-26] MEDS: DIVALPROEX SODIUM 500 MG ER TABLET PO SCH (20:40)
[2016-12-26 21:00] VITALS: BP 140/89
[2016-12-26] MEDS: ZOLPIDEM TARTRATE 10 MG TABLET PO PRN (21:08)
[2016-12-27 05:11] VITALS: BP 113/64
[2016-12-27] MEDS: MetFORMIN HCL 500 MG TABLET PO SCH ×2 (07:11→16:45)
[2016-12-27 08:09] VITALS: BP 122/74
[2016-12-27] MEDS: CHOLECALCIFEROL (VIT D3) 1,000 UNITS TABLET PO SCH (08:55)
[2016-12-27] MEDS: HALOPERIDOL 5 MG TABLET PO SCH ×3 (08:55→16:48)
[2016-12-27] MEDS: CITALOPRAM HYDROBROMIDE 20 MG TABLET PO SCH (08:55)
[2016-12-27] MEDS: OMEPRAZOLE 20 MG CAPSULE PO SCH (08:55)
[2016-12-27] MEDS: NICOTINE 7 MG/24 HOUR PATCH TD SCH (08:55)
[2016-12-27] MEDS: MULTIVITAMINS, THERAPEUTIC TABLET PO SCH (08:55)
[2016-12-27] MEDS: LISINOPRIL 20 MG TABLET PO SCH (08:55)
[2016-12-27] MEDS: ALBUTEROL SULFATE HFA 90 MCG/PUFF 8 GM INHALER IH PRN (09:37)
[2016-12-27] MEDS: LORazepam 2 MG TABLET PO PRN ×2 (14:19→18:48)
[2016-12-27 17:06] VITALS: BP 105/62
[2016-12-27] MEDS: DIVALPROEX SODIUM 500 MG ER TABLET PO SCH (20:28)
[2016-12-28] MEDS: MetFORMIN HCL 500 MG TABLET PO SCH ×2 (07:27→17:28)
[2016-12-28 08:40] VITALS: BP 129/75
[2016-12-28] MEDS: CHOLECALCIFEROL (VIT D3) 1,000 UNITS TABLET PO SCH (08:43)
[2016-12-28] MEDS: HALOPERIDOL 5 MG TABLET PO SCH ×2 (08:43→17:27)
[2016-12-28] MEDS: CITALOPRAM HYDROBROMIDE 20 MG TABLET PO SCH (08:43)
[2016-12-28] MEDS: NICOTINE 7 MG/24 HOUR PATCH TD SCH (08:43)
[2016-12-28] MEDS: MULTIVITAMINS, THERAPEUTIC TABLET PO SCH (08:43)
[2016-12-28] MEDS: LISINOPRIL 20 MG TABLET PO SCH (08:43)
[2016-12-28] MEDS: OMEPRAZOLE 20 MG CAPSULE PO SCH (08:44)
[2016-12-28] MEDS: LORazepam 2 MG TABLET PO PRN ×2 (12:31→17:28)
[2016-12-28 16:23] VITALS: BP 122/63
[2016-12-28] MEDS: ALBUTEROL SULFATE HFA 90 MCG/PUFF 8 GM INHALER IH PRN (18:25)
[2016-12-28] MEDS: DIVALPROEX SODIUM 500 MG ER TABLET PO SCH (21:04)
[2016-12-29 06:30] VITALS: BP 110/73
[2016-12-29] MEDS: MetFORMIN HCL 500 MG TABLET PO SCH ×2 (06:58→17:15)
[2016-12-29 08:55] VITALS: BP 122/62
[2016-12-29] MEDS: CHOLECALCIFEROL (VIT D3) 1,000 UNITS TABLET PO SCH (09:05)
[2016-12-29] MEDS: MULTIVITAMINS, THERAPEUTIC TABLET PO SCH (09:05)
[2016-12-29] MEDS: NICOTINE 7 MG/24 HOUR PATCH TD SCH (09:05)
[2016-12-29] MEDS: LISINOPRIL 20 MG TABLET PO SCH (09:05)
[2016-12-29] MEDS: OMEPRAZOLE 20 MG CAPSULE PO SCH (09:05)
[2016-12-29] MEDS: CITALOPRAM HYDROBROMIDE 20 MG TABLET PO SCH (09:05)
[2016-12-29] MEDS: HALOPERIDOL 5 MG TABLET PO SCH ×2 (09:06→17:15)
[2016-12-29] MEDS: LORazepam 2 MG TABLET PO PRN (10:59)
[2016-12-29 16:00] VITALS: BP 106/68
[2016-12-29] MEDS: ALBUTEROL SULFATE HFA 90 MCG/PUFF 8 GM INHALER IH PRN (18:34)
[2016-12-29] MEDS: ZOLPIDEM TARTRATE 10 MG TABLET PO PRN (20:49)
[2016-12-29] MEDS: DIVALPROEX SODIUM 500 MG ER TABLET PO SCH (20:49)
[2016-12-30 06:07] VITALS: BP 126/78
[2016-12-30] MEDS: MetFORMIN HCL 500 MG TABLET PO SCH ×2 (06:45→16:34)
[2016-12-30 08:10] VITALS: BP 120/82
[2016-12-30] MEDS: NICOTINE 7 MG/24 HOUR PATCH TD SCH (09:00)
[2016-12-30] MEDS: HALOPERIDOL 5 MG TABLET PO SCH ×2 (09:50→16:34)
[2016-12-30] MEDS: MULTIVITAMINS, THERAPEUTIC TABLET PO SCH (09:50)
[2016-12-30] MEDS: LISINOPRIL 20 MG TABLET PO SCH (09:50)
[2016-12-30] MEDS: CHOLECALCIFEROL (VIT D3) 1,000 UNITS TABLET PO SCH (09:50)
[2016-12-30] MEDS: OMEPRAZOLE 20 MG CAPSULE PO SCH (09:51)
[2016-12-30] MEDS: CITALOPRAM HYDROBROMIDE 20 MG TABLET PO SCH (09:51)
[2016-12-30] MEDS: HALOPERIDOL 5 MG TABLET PO PRN (10:59)
[2016-12-30 16:15] VITALS: BP 120/87
[2016-12-30] MEDS: LORazepam 2 MG TABLET PO PRN (17:35)
[2016-12-30] MEDS: DIVALPROEX SODIUM 500 MG ER TABLET PO SCH (20:42)
[2016-12-30] MEDS: ZOLPIDEM TARTRATE 10 MG TABLET PO PRN (20:43)
[2016-12-31 06:33] VITALS: BP 111/65
[2016-12-31] MEDS: MetFORMIN HCL 500 MG TABLET PO SCH ×2 (07:00→16:40)
[2016-12-31] MEDS: MULTIVITAMINS, THERAPEUTIC TABLET PO SCH (09:00)
[2016-12-31] MEDS: CITALOPRAM HYDROBROMIDE 20 MG TABLET PO SCH (09:01)
[2016-12-31] MEDS: LISINOPRIL 20 MG TABLET PO SCH (09:01)
[2016-12-31] MEDS: HALOPERIDOL 5 MG TABLET PO SCH ×2 (09:01→16:41)
[2016-12-31] MEDS: CHOLECALCIFEROL (VIT D3) 1,000 UNITS TABLET PO SCH (09:01)
[2016-12-31] MEDS: OMEPRAZOLE 20 MG CAPSULE PO SCH (09:01)
[2016-12-31] MEDS: NICOTINE 7 MG/24 HOUR PATCH TD SCH (09:04)
[2016-12-31 12:17] LABS: GLUCOSE,POINT OF CARE 94 MG/DL (70-110)
[2016-12-31] MEDS: LORazepam 2 MG TABLET PO PRN ×2 (12:20→16:41)
[2016-12-31 13:17] VITALS: BP 104/70
[2016-12-31 16:11] VITALS: BP 107/77
[2016-12-31] MEDS: DIVALPROEX SODIUM 500 MG ER TABLET PO SCH (20:29)
[2016-12-31] MEDS: HALOPERIDOL 5 MG TABLET PO PRN (20:29)
[2016-12-31] MEDS: ZOLPIDEM TARTRATE 10 MG TABLET PO PRN (20:30)
[2017-01-01] MEDS: MetFORMIN HCL 500 MG TABLET PO SCH ×2 (06:43→07:00)
[2017-01-01] MEDS ORDERED: HYDROCORTISONE 1% 30 GM OINTMENT TP SCH (09:00)
[2017-01-01 09:10] VITALS: BP 97/51
[2017-01-01] MEDS: CHOLECALCIFEROL (VIT D3) 1,000 UNITS TABLET PO SCH (09:25)
[2017-01-01] MEDS: CITALOPRAM HYDROBROMIDE 20 MG TABLET PO SCH (09:27)
[2017-01-01] MEDS: OMEPRAZOLE 20 MG CAPSULE PO SCH (09:27)
[2017-01-01] MEDS: MULTIVITAMINS, THERAPEUTIC TABLET PO SCH (09:27)
[2017-01-01] MEDS: LISINOPRIL 20 MG TABLET PO SCH (09:27)
[2017-01-01] MEDS: NICOTINE 7 MG/24 HOUR PATCH TD SCH (09:27)
[2017-01-01] MEDS: HALOPERIDOL 5 MG TABLET PO SCH (09:27)
[2017-01-01 09:40] VITALS: BP 116/72
== END 2017-01-01 13:00 | disposition home or self-care (01) | DRG 750 ==
LOC: EMS 14:05 → B3A 17:53 → B2S 12-17 17:19
PROVIDERS: ATTEND Psychiatry & Neurology Child & Adolescent Psychiatry
DX: F20.0 Paranoid schizophrenia (principal); F33.2 Major depressive disorder, recurrent severe without psychotic features; J44.9 Chronic obstructive pulmonary disease, unspecified; R45.851 Suicidal ideations; E11.319 Type 2 diabetes mellitus with unspecified diabetic retinopathy without macular edema; F25.0 Schizoaffective disorder, bipolar type; I10 Essential (primary) hypertension; E78.5 Hyperlipidemia, unspecified; K21.9 Gastro-esophageal reflux disease without esophagitis; H54.8 Legal blindness, as defined in USA; F17.200 Nicotine dependence, unspecified, uncomplicated; E66.9 Obesity, unspecified; J11.1 Influenza due to unidentified influenza virus with other respiratory manifestations; F41.9 Anxiety disorder, unspecified; Z53.29 Procedure and treatment not carried out because of patient's decision for other reasons; H35.30 Unspecified macular degeneration; Z88.8 Allergy status to other drugs, medicaments and biological substances; Z68.32 Body mass index [BMI] 32.0-32.9, adult; Z94.7 Corneal transplant status; Z79.899 Other long term (current) drug therapy
CPT/HCPCS: 82962; 87081; 99285; G0480; J3535

== ENCOUNTER 2017-01-04 02:05 | Inpatient (IN) | payer MEDICAID ==
[~2017-01-04] VITALS: Ht 167.6 cm; Wt 91.8 kg
[~2017-01-04 02:05] MED LIST changes: -HALOD100I IM; +LISI-662 PO; +METF500T4 PO; +VITAD1000 PO
[2017-01-04 02:17] LABS: GLUCOSE,POINT OF CARE 136 MG/DL (70-110)
[2017-01-04 03:07] LABS: BASOPHILS # (AUTO) 0.02 K/uL (0.00-0.20); BASOPHILS % (AUTO) 0.2 % (0.0-2.0); EOSINOPHILS # (AUTO) 0.06 K/uL (0.00-0.70); HEMATOCRIT 37.6 % (36-46); HEMOGLOBIN 12.5 g/dL (12.0-16.0); LYMPHOCYTES # (AUTO) 1.5 K/uL (1.0-4.8); LYMPHOCYTES % (AUTO) 20.3 % (22.0-44.0); MEAN CORPUSCULAR HEMOGLOBIN 31.2 pg (26.0-34.0); MEAN CORPUSCULAR HGB CONC 33.4 G/dL (31.0-37.0); MEAN CORPUSCULAR VOLUME 94 fL (80-100); MONOCYTES # (AUTO) 0.7 K/uL (0.1-1.0); MONOCYTES % (AUTO) 9.4 % (2.0-9.0); NEUTROPHILS % (AUTO) 69.3 % (40.0-70.0); PLATELET COUNT (AUTO) 214 K/uL (150-450); RED BLOOD CELL COUNT(AUTO) 4.02 MIL/uL (4.00-5.20); RED CELL DISTRIBUTION WIDTH 14.4 % (11.5-14.5); WHITE BLOOD COUNT (AUTO) 7.2 K/uL (4.5-11.0)
[2017-01-04 03:15] LABS: ANION GAP 5 mmol/L (8-16); CALCIUM, TOTAL 9.1 mg/dL (8.8-10.5); CARBON DIOXIDE 31 mmol/L (22-29); CHLORIDE 99 mmol/L (98-107); CREATININE 0.56 mg/dL (0.60-1.30); GLOMERULAR FILTR. RATE CALC > 60 mL/min (>60); POTASSIUM 3.7 mmol/L (3.5-5.1); SODIUM SERUM 135 mmol/L (136-145); UREA NITROGEN, BLOOD 13 mg/dL (7-18)
[2017-01-04 03:31] LABS: ALANINE AMINOTRANSFERASE 17 U/L (12-78); ALBUMIN 3.5 g/dL (3.4-5.0); ASPARTATE AMINOTRANSFERASE 8 U/L (15-37); BILIRUBIN,TOTAL 0.3 mg/dL (0.1-1.0)
[2017-01-04] MEDS ORDERED: HALOPERIDOL LACTATE 5 MG/ML VIAL IM ONE ×2 (03:45→04:30)
[2017-01-04] MEDS ORDERED: LORazepam 2 MG/ML VIAL IM ONE ×2 (03:45→04:30)
[2017-01-04 06:11] VITALS: BP 127/72
[2017-01-04 06:16] VITALS: BP 127/72
[2017-01-04 06:47] LABS: GLUCOSE,POINT OF CARE 124 MG/DL (70-110)
[2017-01-04] MEDS ORDERED: -PHARMACY VACCINE NOTE- MISC ONE ×2 (07:00)
[2017-01-04 08:08] VITALS: BP 117/67
[2017-01-04 08:36] LABS: CHOL/HDL RATIO 3.3 (3.9-5.7)
[2017-01-04 10:22] LABS: GLUCOSE,POINT OF CARE 156 MG/DL (70-110)
[2017-01-04] MEDS: LISINOPRIL 20 MG TABLET PO SCH (10:39)
[2017-01-04] MEDS: CHOLECALCIFEROL (VIT D3) 1,000 UNITS TABLET PO SCH (10:39)
[2017-01-04] MEDS: NICOTINE 14 MG/24 HOUR PATCH TD SCH (10:45)
[2017-01-04] MEDS: LORazepam 2 MG TABLET PO PRN ×2 (12:12→17:20)
[2017-01-04 16:00] VITALS: BP 117/71
[2017-01-04] MEDS: MetFORMIN HCL 500 MG TABLET PO SCH (17:20)
[2017-01-04] MEDS: HALOPERIDOL 5 MG TABLET PO PRN (17:20)
[2017-01-04] MEDS: DOCUSATE SODIUM 100 MG CAPSULE PO SCH (17:20)
[2017-01-04] MEDS: TraZODone HCL 100 MG TABLET PO SCH (21:31)
[2017-01-05 06:17] LABS: GLUCOSE,POINT OF CARE 92 MG/DL (70-110)
[2017-01-05] MEDS: MetFORMIN HCL 500 MG TABLET PO SCH ×2 (06:37→16:59)
[2017-01-05 06:41] VITALS: BP 124/73
[2017-01-05] MEDS: CHOLECALCIFEROL (VIT D3) 1,000 UNITS TABLET PO SCH (08:54)
[2017-01-05] MEDS: NICOTINE 14 MG/24 HOUR PATCH TD SCH (08:54)
[2017-01-05] MEDS: ARIPiprazole 5 MG TABLET PO SCH (08:54)
[2017-01-05] MEDS: CITALOPRAM HYDROBROMIDE 20 MG TABLET PO SCH (08:54)
[2017-01-05] MEDS: LISINOPRIL 20 MG TABLET PO SCH (08:54)
[2017-01-05] MEDS: DOCUSATE SODIUM 100 MG CAPSULE PO SCH ×2 (08:54→16:59)
[2017-01-05 09:00] VITALS: BP 112/75
[2017-01-05] MEDS: LORazepam 2 MG TABLET PO PRN ×2 (11:19→17:00)
[2017-01-05 16:17] VITALS: BP 122/72
[2017-01-05] MEDS: HALOPERIDOL 5 MG TABLET PO PRN (17:00)
[2017-01-05] MEDS: TraZODone HCL 100 MG TABLET PO SCH (20:06)
[2017-01-05] MEDS: ZOLPIDEM TARTRATE 10 MG TABLET PO PRN (20:07)
[2017-01-05] MEDS ORDERED: ACETAMINOPHEN 325 MG TABLET PO PRN (21:15)
[2017-01-06 06:35] VITALS: BP 126/80
[2017-01-06 06:42] LABS: GLUCOSE,POINT OF CARE 90 MG/DL (70-110)
[2017-01-06] MEDS ORDERED: MetFORMIN HCL 500 MG TABLET PO SCH (07:00)
[2017-01-06] MEDS: MetFORMIN HCL 500 MG TABLET PO SCH ×2 (07:33→17:00)
[2017-01-06 08:12] LABS: HEMOGLOBIN A1C 5.8 % (4.5-6.2)
[2017-01-06 08:19] VITALS: BP 104/68
[2017-01-06] MEDS: OMEPRAZOLE 20 MG CAPSULE PO SCH (08:19)
[2017-01-06] MEDS: DOCUSATE SODIUM 100 MG CAPSULE PO SCH ×2 (08:19→17:00)
[2017-01-06] MEDS: LISINOPRIL 20 MG TABLET PO SCH (08:19)
[2017-01-06] MEDS: MULTIVITAMINS WITH MINERALS, THERAPEUTIC TABLET PO SCH (08:19)
[2017-01-06] MEDS: CITALOPRAM HYDROBROMIDE 20 MG TABLET PO SCH (08:19)
[2017-01-06] MEDS: ARIPiprazole 5 MG TABLET PO SCH (08:19)
[2017-01-06] MEDS: NICOTINE 14 MG/24 HOUR PATCH TD SCH (08:20)
[2017-01-06] MEDS: CHOLECALCIFEROL (VIT D3) 1,000 UNITS TABLET PO SCH (08:20)
[2017-01-06 08:38] LABS: CHOL/HDL RATIO 3.5 (3.9-5.7); THYROID STIMULATING HORMONE 1.98 uIU/mL (0.36-3.74)
[2017-01-06] MEDS ORDERED: LISINOPRIL 20 MG TABLET PO SCH (09:00)
[2017-01-06] MEDS ORDERED: CHOLECALCIFEROL (VIT D3) 1,000 UNITS TABLET PO SCH (09:00)
[2017-01-06] MEDS: LORazepam 2 MG TABLET PO PRN ×2 (10:32→16:20)
[2017-01-06] MEDS: MAGNESIUM HYDROXIDE SUSPENSION 30 ML UDCUP PO PRN (11:58)
[2017-01-06] MEDS: HALOPERIDOL 5 MG TABLET PO PRN (16:20)
[2017-01-06 16:38] VITALS: BP 106/69
[2017-01-06] MEDS: TraZODone HCL 100 MG TABLET PO SCH (21:02)
[2017-01-06] MEDS: ZOLPIDEM TARTRATE 10 MG TABLET PO PRN (21:03)
[2017-01-06 21:38] LABS: GLUCOSE COMMENT 1 Received Meds; GLUCOSE,POINT OF CARE 123 MG/DL (70-110)
[2017-01-07] MEDS: MetFORMIN HCL 500 MG TABLET PO SCH ×2 (06:35→17:03)
[2017-01-07 06:42] LABS: GLUCOSE,POINT OF CARE 91 MG/DL (70-110)
[2017-01-07 06:45] VITALS: BP 112/84
[2017-01-07 09:06] VITALS: BP 126/72
[2017-01-07] MEDS: NICOTINE 14 MG/24 HOUR PATCH TD SCH (09:26)
[2017-01-07] MEDS: CITALOPRAM HYDROBROMIDE 20 MG TABLET PO SCH (09:27)
[2017-01-07] MEDS: LISINOPRIL 20 MG TABLET PO SCH (09:27)
[2017-01-07] MEDS: MULTIVITAMINS WITH MINERALS, THERAPEUTIC TABLET PO SCH (09:27)
[2017-01-07] MEDS: CHOLECALCIFEROL (VIT D3) 1,000 UNITS TABLET PO SCH (09:28)
[2017-01-07] MEDS: OMEPRAZOLE 20 MG CAPSULE PO SCH (09:28)
[2017-01-07] MEDS: DOCUSATE SODIUM 100 MG CAPSULE PO SCH ×2 (09:28→17:03)
[2017-01-07] MEDS: ARIPiprazole 5 MG TABLET PO SCH (09:28)
[2017-01-07] MEDS: HALOPERIDOL 5 MG TABLET PO PRN (10:40)
[2017-01-07] MEDS: BENZTROPINE MESYLATE 1 MG TABLET PO SCH ×2 (12:10→17:03)
[2017-01-07 16:09] VITALS: BP 100/66
[2017-01-07 17:01] LABS: GLUCOSE,POINT OF CARE 96 MG/DL (70-110)
[2017-01-07] MEDS: TraZODone HCL 100 MG TABLET PO SCH (20:05)
[2017-01-07] MEDS: ZOLPIDEM TARTRATE 10 MG TABLET PO PRN (21:51)
[2017-01-08 00:22] VITALS: BP 111/63
[2017-01-08] MEDS: LORazepam 2 MG TABLET PO PRN ×2 (00:23→19:08)
[2017-01-08] MEDS: MetFORMIN HCL 500 MG TABLET PO SCH ×2 (07:05→16:10)
[2017-01-08 08:20] VITALS: BP 115/68
[2017-01-08] MEDS: CHOLECALCIFEROL (VIT D3) 1,000 UNITS TABLET PO SCH (08:32)
[2017-01-08] MEDS: NICOTINE 14 MG/24 HOUR PATCH TD SCH (08:32)
[2017-01-08] MEDS: DOCUSATE SODIUM 100 MG CAPSULE PO SCH ×2 (08:32→16:10)
[2017-01-08] MEDS: MULTIVITAMINS WITH MINERALS, THERAPEUTIC TABLET PO SCH (08:32)
[2017-01-08] MEDS: LISINOPRIL 20 MG TABLET PO SCH (08:32)
[2017-01-08] MEDS: OMEPRAZOLE 20 MG CAPSULE PO SCH (08:32)
[2017-01-08] MEDS: BENZTROPINE MESYLATE 1 MG TABLET PO SCH ×2 (08:33→16:10)
[2017-01-08] MEDS: CITALOPRAM HYDROBROMIDE 20 MG TABLET PO SCH (08:33)
[2017-01-08] MEDS: ARIPiprazole 5 MG TABLET PO SCH (08:34)
[2017-01-08] MEDS: IBUPROFEN 400 MG TABLET PO PRN (16:09)
[2017-01-08 16:13] VITALS: BP 108/65
[2017-01-08 17:12] LABS: GLUCOSE,POINT OF CARE 111 MG/DL (70-110)
[2017-01-08] MEDS: HALOPERIDOL 5 MG TABLET PO PRN (18:34)
[2017-01-08] MEDS: TraZODone HCL 100 MG TABLET PO SCH (21:36)
[2017-01-09 06:02] VITALS: BP 108/66
[2017-01-09 06:16] LABS: GLUCOSE,POINT OF CARE 131 MG/DL (70-110)
[2017-01-09] MEDS: MetFORMIN HCL 500 MG TABLET PO SCH ×2 (06:38→17:07)
[2017-01-09 08:07] VITALS: BP 133/86
[2017-01-09] MEDS: NICOTINE 21 MG/24 HOUR PATCH TD SCH (08:24)
[2017-01-09] MEDS: ARIPiprazole 5 MG TABLET PO SCH (08:24)
[2017-01-09] MEDS: CITALOPRAM HYDROBROMIDE 20 MG TABLET PO SCH (08:25)
[2017-01-09] MEDS: DOCUSATE SODIUM 100 MG CAPSULE PO SCH ×2 (08:25→17:08)
[2017-01-09] MEDS: CHOLECALCIFEROL (VIT D3) 1,000 UNITS TABLET PO SCH (08:25)
[2017-01-09] MEDS: BENZTROPINE MESYLATE 1 MG TABLET PO SCH ×2 (08:25→17:08)
[2017-01-09] MEDS: OMEPRAZOLE 20 MG CAPSULE PO SCH (08:25)
[2017-01-09] MEDS: LISINOPRIL 20 MG TABLET PO SCH (08:25)
[2017-01-09] MEDS: MULTIVITAMINS WITH MINERALS, THERAPEUTIC TABLET PO SCH (08:25)
[2017-01-09] MEDS: LORazepam 2 MG TABLET PO PRN (09:21)
[2017-01-09 16:00] VITALS: BP 113/67
[2017-01-09 16:56] LABS: GLUCOSE,POINT OF CARE 113 MG/DL (70-110)
[2017-01-09] MEDS: TraZODone HCL 100 MG TABLET PO SCH (20:06)
[2017-01-09] MEDS: MAGNESIUM HYDROXIDE SUSPENSION 30 ML UDCUP PO PRN (20:06)
[2017-01-09] MEDS: HALOPERIDOL 5 MG TABLET PO PRN (20:07)
[2017-01-09] MEDS: ZOLPIDEM TARTRATE 10 MG TABLET PO PRN (21:40)
[2017-01-10 02:19] VITALS: BP 110/65
[2017-01-10] MEDS: MetFORMIN HCL 500 MG TABLET PO SCH ×2 (06:25→16:11)
[2017-01-10] MEDS: IBUPROFEN 400 MG TABLET PO PRN (06:26)
[2017-01-10 06:52] LABS: GLUCOSE,POINT OF CARE 113 MG/DL (70-110)
[2017-01-10 08:06] VITALS: BP 109/71
[2017-01-10] MEDS: LISINOPRIL 20 MG TABLET PO SCH (08:12)
[2017-01-10] MEDS: NICOTINE 21 MG/24 HOUR PATCH TD SCH (08:12)
[2017-01-10] MEDS: OMEPRAZOLE 20 MG CAPSULE PO SCH (08:13)
[2017-01-10] MEDS: CHOLECALCIFEROL (VIT D3) 1,000 UNITS TABLET PO SCH (08:13)
[2017-01-10] MEDS: BENZTROPINE MESYLATE 1 MG TABLET PO SCH ×2 (08:13→16:17)
[2017-01-10] MEDS: ARIPiprazole 5 MG TABLET PO SCH (08:13)
[2017-01-10] MEDS: MULTIVITAMINS WITH MINERALS, THERAPEUTIC TABLET PO SCH (08:13)
[2017-01-10] MEDS: CITALOPRAM HYDROBROMIDE 20 MG TABLET PO SCH (08:13)
[2017-01-10] MEDS: DOCUSATE SODIUM 100 MG CAPSULE PO SCH ×2 (08:13→16:11)
[2017-01-10] MEDS: MAGNESIUM HYDROXIDE SUSPENSION 30 ML UDCUP PO PRN (10:12)
[2017-01-10] MEDS ORDERED: TRAZ-147 PO (16:02)
[2017-01-10] MEDS ORDERED: DSS100 PO (16:02)
[2017-01-10] MEDS ORDERED: ARIP5TAB9 PO (16:02)
[2017-01-10] MEDS ORDERED: MV-M1TAB2 PO (16:02)
[2017-01-10] MEDS ORDERED: BENZ1TAB10 PO (16:02)
[2017-01-10] MEDS ORDERED: NICO21T TD (16:02)
[2017-01-10 16:40] LABS: GLUCOSE COMMENT 1 Received Meds; GLUCOSE,POINT OF CARE 129 MG/DL (70-110)
== END 2017-01-10 17:30 | disposition home or self-care (01) | DRG 750 ==
LOC: EMS 02:07 → B2S 04:17
PROVIDERS: ADMIT Psychiatry & Neurology Child & Adolescent Psychiatry; ATTEND Psychiatry & Neurology Child & Adolescent Psychiatry
PROC: GZHZZZZ Group Psychotherapy (ICD-10-PCS; principal; 2017-01-05)
DX: F25.0 Schizoaffective disorder, bipolar type (principal); I11.0 Hypertensive heart disease with heart failure; R45.851 Suicidal ideations; I50.9 Heart failure, unspecified; J44.9 Chronic obstructive pulmonary disease, unspecified; E11.319 Type 2 diabetes mellitus with unspecified diabetic retinopathy without macular edema; H54.8 Legal blindness, as defined in USA; E66.9 Obesity, unspecified; K21.9 Gastro-esophageal reflux disease without esophagitis; F17.210 Nicotine dependence, cigarettes, uncomplicated; F60.3 Borderline personality disorder; E78.5 Hyperlipidemia, unspecified; Z81.8 Family history of other mental and behavioral disorders; Z88.8 Allergy status to other drugs, medicaments and biological substances; Z94.7 Corneal transplant status; Z79.899 Other long term (current) drug therapy; Z68.32 Body mass index [BMI] 32.0-32.9, adult
CPT/HCPCS: 82962; 83036; 84443; 87081; 96372; 99285; G0480; J1630; J2060

== ENCOUNTER 2017-04-08 21:02 | Emergency (ER) | payer MEDICAID ==
[~2017-04-08] VITALS: Ht 167.6 cm; Wt 81.0 kg
[~2017-04-08 21:02] MED LIST changes: +ARIP5TAB9 PO; +BENZ1TAB10 PO; -DIVA500T52 PO; +DSS100 PO; -HALO5 PO; +NICO21T TD; +TRAZ-147 PO
[2017-04-08 21:48] LABS: GLUCOSE,POINT OF CARE 137 MG/DL (70-110)
[2017-04-08] MEDS ORDERED: KETOROLAC TROMETHAMINE 60 MG/2 ML VIAL IM ONE (22:30)
[2017-04-09 00:11] VITALS: BP 121/70
== END 2017-04-09 01:03 | disposition home or self-care (01) ==
LOC: EMS 21:04
DX: S39.012A Strain of muscle, fascia and tendon of lower back, initial encounter (principal); E11.9 Type 2 diabetes mellitus without complications; I10 Essential (primary) hypertension; E66.9 Obesity, unspecified; F17.210 Nicotine dependence, cigarettes, uncomplicated; Z68.28 Body mass index [BMI] 28.0-28.9, adult; Z88.8 Allergy status to other drugs, medicaments and biological substances; W19.XXXA Unspecified fall, initial encounter; Y93.89 Activity, other specified; Y92.89 Other specified places as the place of occurrence of the external cause; Y99.8 Other external cause status
CPT/HCPCS: 72100; 82962; 96372; 99284; 99406; J1885

== ENCOUNTER 2017-04-21 18:12 | Emergency (ER) | payer MEDICAID ==
[~2017-04-21] VITALS: Ht 172.7 cm; Wt 81.8 kg
[~2017-04-21 18:12] MED LIST changes: -ARIP5TAB9 PO; -CITA20TA9 PO; -DSS100 PO; -LISI-662 PO; -METF500T4 PO; -MV-M1TAB2 PO; -NICO21T TD; -OMEP20 PO; -VITAD1000 PO
[2017-04-21 19:27] LABS: BASOPHILS # (AUTO) 0.03 K/uL (0.00-0.20); BASOPHILS % (AUTO) 0.4 % (0.0-2.0); EOSINOPHILS # (AUTO) 0.07 K/uL (0.00-0.70); EOSINOPHILS % (AUTO) 1.04 % (1.0-6.0); HEMOGLOBIN 14.7 g/dL (12.0-16.0); LYMPHOCYTES # (AUTO) 1.6 K/uL (1.0-4.8); LYMPHOCYTES % (AUTO) 22.4 % (22.0-44.0); MEAN CORPUSCULAR HEMOGLOBIN 32.4 pg (26.0-34.0); MEAN CORPUSCULAR VOLUME 93 fL (80-100); MONOCYTES # (AUTO) 0.4 K/uL (0.1-1.0); MONOCYTES % (AUTO) 5.6 % (2.0-9.0); NEUTROPHILS % (AUTO) 70.5 % (40.0-70.0); PLATELET COUNT (AUTO) 206 K/uL (150-450); RED BLOOD CELL COUNT(AUTO) 4.53 MIL/uL (4.00-5.20); WHITE BLOOD COUNT (AUTO) 7.1 K/uL (4.5-11.0)
[2017-04-21 19:34] LABS: ANION GAP 11 mmol/L (8-16); CALCIUM, TOTAL 9.7 mg/dL (8.8-10.5); CARBON DIOXIDE 26 mmol/L (22-29); CHLORIDE 102 mmol/L (98-107); CREATININE 0.76 mg/dL (0.60-1.30); GLOMERULAR FILTR. RATE CALC > 60 mL/min (>60); POTASSIUM 3.7 mmol/L (3.5-5.1); SODIUM SERUM 139 mmol/L (136-145); UREA NITROGEN, BLOOD 13 mg/dL (7-18)
[2017-04-21 19:41] LABS: ALANINE AMINOTRANSFERASE 21 U/L (12-78); ALBUMIN 4.1 g/dL (3.4-5.0); ASPARTATE AMINOTRANSFERASE 14 U/L (15-37); BILIRUBIN,TOTAL 0.5 mg/dL (0.1-1.0); TOTAL PROTEIN, SERUM 7.6 g/dL (6.4-8.2)
[2017-04-21] MEDS ORDERED: HALOPERIDOL 5 MG TABLET PO ONE (20:15)
[2017-04-21 20:28] VITALS: BP 139/85
== END 2017-04-21 20:40 | disposition home or self-care (01) ==
LOC: EMS 18:13
DX: F25.1 Schizoaffective disorder, depressive type (principal); I10 Essential (primary) hypertension; F31.9 Bipolar disorder, unspecified; E11.319 Type 2 diabetes mellitus with unspecified diabetic retinopathy without macular edema; E66.9 Obesity, unspecified; F17.210 Nicotine dependence, cigarettes, uncomplicated; Z88.8 Allergy status to other drugs, medicaments and biological substances
CPT/HCPCS: 36415; 80053; 85025; 99284; 99406; G0480

== ENCOUNTER 2017-06-07 18:24 | Emergency (ER) | payer MEDICAID ==
[~2017-06-07] VITALS: Ht 170.2 cm; Wt 88.6 kg
[~2017-06-07 18:24] MED LIST changes: +ARIP10TA8 PO; +CITA20TA9 PO; +DOCU100C34 PO; +LISI-662 PO; +METF500T4 PO; +OMEP20 PO; +VITAD1000 PO
[2017-06-07] MEDS ORDERED: ATOR20TA86 PO (18:39)
[2017-06-07 18:42] LABS: GLUCOSE,POINT OF CARE 120 MG/DL (70-110)
[2017-06-07 19:14] LABS: BASOPHILS # (AUTO) 0.01 K/uL (0.00-0.20); BASOPHILS % (AUTO) 0.2 % (0.0-2.0); EOSINOPHILS # (AUTO) 0.16 K/uL (0.00-0.70); EOSINOPHILS % (AUTO) 2.36 % (1.0-6.0); HEMATOCRIT 39.6 % (36-46); HEMOGLOBIN 13.4 g/dL (12.0-16.0); LYMPHOCYTES # (AUTO) 1.1 K/uL (1.0-4.8); LYMPHOCYTES % (AUTO) 16.8 % (22.0-44.0); MEAN CORPUSCULAR HGB CONC 33.9 G/dL (31.0-37.0); MEAN CORPUSCULAR VOLUME 97 fL (80-100); MONOCYTES # (AUTO) 0.5 K/uL (0.1-1.0); MONOCYTES % (AUTO) 6.9 % (2.0-9.0); NEUTROPHILS # (AUTO) 4.9 K/uL (1.8-7.7); NEUTROPHILS % (AUTO) 73.7 % (40.0-70.0); PLATELET COUNT (AUTO) 175 K/uL (150-450); RED BLOOD CELL COUNT(AUTO) 4.07 MIL/uL (4.00-5.20); RED CELL DISTRIBUTION WIDTH 12.9 % (11.5-14.5); WHITE BLOOD COUNT (AUTO) 6.6 K/uL (4.5-11.0)
[2017-06-07 19:23] LABS: ANION GAP 7 mmol/L (8-16); CARBON DIOXIDE 29 mmol/L (22-29); CHLORIDE 105 mmol/L (98-107); CREATININE 0.75 mg/dL (0.60-1.30); GLOMERULAR FILTR. RATE CALC > 60 mL/min (>60); POTASSIUM 3.5 mmol/L (3.5-5.1); SODIUM SERUM 141 mmol/L (136-145); UREA NITROGEN, BLOOD 14 mg/dL (7-18)
[2017-06-07 19:29] LABS: ALANINE AMINOTRANSFERASE 21 U/L (12-78); ALBUMIN 3.4 g/dL (3.4-5.0); ASPARTATE AMINOTRANSFERASE 11 U/L (15-37); BILIRUBIN,TOTAL 0.3 mg/dL (0.1-1.0); TOTAL PROTEIN, SERUM 6.4 g/dL (6.4-8.2)
[2017-06-07] MEDS ORDERED: CLOTRIMAZOLE 1% 15 GM CREAM TP ONE (19:45)
[2017-06-07] MEDS ORDERED: CEPHALEXIN MONOHYDRATE 500 MG CAPSULE PO ONE (19:45)
[2017-06-07 19:55] VITALS: BP 128/82
== END 2017-06-07 20:03 | disposition home or self-care (01) ==
LOC: EMS 18:26
DX: F20.0 Paranoid schizophrenia (principal); L03.111 Cellulitis of right axilla; L03.112 Cellulitis of left axilla; B36.9 Superficial mycosis, unspecified; F31.9 Bipolar disorder, unspecified; E11.9 Type 2 diabetes mellitus without complications; I10 Essential (primary) hypertension; F17.200 Nicotine dependence, unspecified, uncomplicated; Z88.8 Allergy status to other drugs, medicaments and biological substances
CPT/HCPCS: 36415; 80053; 80307; 82962; 85025; 99284; G0480

== ENCOUNTER 2017-06-15 17:34 | Emergency (ER) | payer MEDICAID ==
[~2017-06-15] VITALS: Ht 170.2 cm; Wt 84.1 kg
[~2017-06-15 17:34] MED LIST changes: +ATOR20TA86 PO; -DOCU100C34 PO; -OMEP20 PO; -VITAD1000 PO
[2017-06-15 17:53] LABS: GLUCOSE,POINT OF CARE 102 MG/DL (70-110)
[2017-06-15 20:25] VITALS: BP 133/80
== END 2017-06-15 21:09 | disposition home or self-care (01) ==
LOC: EMS 17:36
DX: F41.9 Anxiety disorder, unspecified (principal); F20.0 Paranoid schizophrenia; F31.9 Bipolar disorder, unspecified; F20.9 Schizophrenia, unspecified; I10 Essential (primary) hypertension; E66.9 Obesity, unspecified; E11.319 Type 2 diabetes mellitus with unspecified diabetic retinopathy without macular edema; F17.210 Nicotine dependence, cigarettes, uncomplicated; Z68.29 Body mass index [BMI] 29.0-29.9, adult; Z76.0 Encounter for issue of repeat prescription
CPT/HCPCS: 82962; 99284; 99406

== ENCOUNTER 2017-09-11 21:07 | Inpatient (IN) | payer MEDICAID ==
[~2017-09-11] VITALS: Ht 167.6 cm; Wt 97.6 kg
[2017-09-11] MEDS ORDERED: HALOPERIDOL 5 MG TABLET PO PRN (22:30)
[2017-09-11] MEDS ORDERED: LORazepam 2 MG TABLET PO PRN (22:30)
[2017-09-11] MEDS ORDERED: ZOLPIDEM TARTRATE 10 MG TABLET PO PRN (22:30)
[2017-09-11 22:31] LABS: BASOPHILS % (AUTO) 0.3 % (0.0-2.0); EOSINOPHILS % (AUTO) 2.8 % (1.0-6.0); HEMATOCRIT 42.2 % (36-46); HEMOGLOBIN 14.6 g/dL (12.0-16.0); LYMPHOCYTES # (AUTO) 1.3 K/uL (1.0-4.8); LYMPHOCYTES % (AUTO) 24.2 % (22.0-44.0); MEAN CORPUSCULAR HGB CONC 34.5 G/dL (31.0-37.0); MEAN CORPUSCULAR VOLUME 96 fL (80-100); MONOCYTES # (AUTO) 0.4 K/uL (0.1-1.0); MONOCYTES % (AUTO) 7.9 % (2.0-9.0); NEUTROPHILS # (AUTO) 3.6 K/uL (1.8-7.7); NEUTROPHILS % (AUTO) 64.8 % (40.0-70.0); PLATELET COUNT (AUTO) 189 K/uL (150-450); RED BLOOD CELL COUNT(AUTO) 4.41 MIL/uL (4.00-5.20); RED CELL DISTRIBUTION WIDTH 12.5 % (11.5-14.5)
[2017-09-11 22:46] LABS: AMPHET/METH SCREEN,URINE NEGATIVE (NEGATIVE); BARBITURATE SCREEN, URINE NEGATIVE (NEGATIVE); BENZODIAZEPINES SCREEN,URINE NEGATIVE (NEGATIVE); CANNABINOID SCREEN,URINE NEGATIVE (NEGATIVE); COCAINE SCREEN,URINE NEGATIVE (NEGATIVE); METHADONE SCREEN, URINE NEGATIVE (NEGATIVE); OPIATE SCREEN,URINE NEGATIVE (NEGATIVE)
[2017-09-11 22:47] LABS: ANION GAP 3 mmol/L (8-16); CALCIUM, TOTAL 9.1 mg/dL (8.8-10.5); CARBON DIOXIDE 31 mmol/L (22-29); CHLORIDE 102 mmol/L (98-107); CREATININE 0.84 mg/dL (0.60-1.30); GLOMERULAR FILTR. RATE CALC > 60 mL/min (>60); GLUCOSE,RANDOM 108 mg/dL (70-110); POTASSIUM 3.8 mmol/L (3.5-5.1); SODIUM SERUM 136 mmol/L (136-145); UREA NITROGEN, BLOOD 15 mg/dL (7-18)
[2017-09-11 23:00] LABS: PHENCYCLIDINE SCREEN,URINE NEGATIVE (NEGATIVE)
[2017-09-11 23:01] LABS: ALANINE AMINOTRANSFERASE 21 U/L (12-78); ALBUMIN 3.5 g/dL (3.4-5.0); ALKALINE PHOSPHATASE 86 U/L (46-116); ASPARTATE AMINOTRANSFERASE 10 U/L (15-37); BILIRUBIN,TOTAL 0.2 mg/dL (0.1-1.0); CHOL/HDL RATIO 4.3 (3.9-5.7); CHOLESTEROL 166 mg/dL (131-200); HDL CHOLESTEROL 39 mg/dL (40-60); LDL CHOL (CALC.) 95 mg/dL (0-130); THYROID STIMULATING HORMONE 2.26 uIU/mL (0.36-3.74); TRIGLYCERIDES 160 mg/dL (15-150)
[2017-09-11 23:05] LABS: APPEARANCE,URINE CLEAR (CLEAR); BILIRUBIN,URINE NEGATIVE (NEGATIVE); GLUCOSE, URINE (UA) NEGATIVE (NEGATIVE); KETONES,URINE NEGATIVE (NEGATIVE); LEUKOCYTE ESTERASE ,URINE NEGATIVE (NEGATIVE); NITRATE,URINE NEGATIVE (NEGATIVE); OCCULT BLOOD,URINE NEGATIVE (NEGATIVE); PROTEIN,URINE NEGATIVE (NEGATIVE)
[2017-09-11 23:45] VITALS: BP 140/86
[2017-09-12 03:10] VITALS: BP 140/86
[2017-09-12] MEDS ORDERED: PNEUMOCOCCAL VACCINE POLYVALENT 0.5 ML VIAL [PPSV23] IM ONE (04:45)
[2017-09-12 10:25] VITALS: BP 144/84
[2017-09-12] MEDS: ARIPiprazole 10 MG TABLET PO SCH (12:19)
[2017-09-12] MEDS: BENZTROPINE MESYLATE 1 MG TABLET PO SCH (16:20)
[2017-09-12] MEDS ORDERED: ALBUTEROL SULFATE HFA 90 MCG/PUFF 8 GM INHALER IH PRN (16:45)
[2017-09-12] MEDS: MetFORMIN HCL 500 MG TABLET PO SCH (17:33)
[2017-09-12] MEDS ORDERED: ACETAMINOPHEN 325 MG TABLET PO PRN (18:15)
[2017-09-12 18:47] VITALS: BP 136/75
[2017-09-12] MEDS: TraZODone HCL 100 MG TABLET PO SCH (21:52)
[2017-09-12] MEDS: ATORVASTATIN CALCIUM 20 MG TABLET PO SCH (21:52)
[2017-09-13 05:38] LABS: GLUCOMETER DEV NAME(LOC) 3EI B; GLUCOSE,POINT OF CARE 96 MG/DL (70-110)
[2017-09-13] MEDS: MetFORMIN HCL 500 MG TABLET PO SCH ×2 (06:40→16:37)
[2017-09-13] MEDS ORDERED: DEXTROSE 50%-WATER 25 GM/50 ML SYRINGE IVP PRN (07:15)
[2017-09-13] MEDS ORDERED: INSULIN ASPART 100 UNITS/ML SQ PRN (07:15)
[2017-09-13] MEDS: BENZTROPINE MESYLATE 1 MG TABLET PO SCH ×2 (09:21→16:02)
[2017-09-13] MEDS: ARIPiprazole 10 MG TABLET PO SCH (09:21)
[2017-09-13] MEDS: LISINOPRIL 20 MG TABLET PO SCH (09:21)
[2017-09-13 09:43] VITALS: BP 158/90
[2017-09-13 16:58] LABS: GLUCOMETER DEV NAME(LOC) 3EI B; GLUCOSE,POINT OF CARE 125 MG/DL (70-110)
[2017-09-13 16:59] VITALS: BP 111/52
[2017-09-13] MEDS: TraZODone HCL 100 MG TABLET PO SCH (20:06)
[2017-09-13 20:07] LABS: GLUCOMETER DEV NAME(LOC) 3EI B; GLUCOSE,POINT OF CARE 101 MG/DL (70-110)
[2017-09-13] MEDS: ATORVASTATIN CALCIUM 20 MG TABLET PO SCH (20:07)
[2017-09-14 06:07] LABS: GLUCOMETER DEV NAME(LOC) 3EI B; GLUCOSE,POINT OF CARE 101 MG/DL (70-110)
[2017-09-14] MEDS: MetFORMIN HCL 500 MG TABLET PO SCH ×2 (06:55→16:58)
[2017-09-14 08:10] VITALS: BP 130/78
[2017-09-14] MEDS: BENZTROPINE MESYLATE 1 MG TABLET PO SCH ×2 (09:03→16:05)
[2017-09-14] MEDS: ARIPiprazole 10 MG TABLET PO SCH (09:04)
[2017-09-14] MEDS: LISINOPRIL 20 MG TABLET PO SCH (09:04)
[2017-09-14 12:08] LABS: GLUCOMETER DEV NAME(LOC) 3EI B; GLUCOSE,POINT OF CARE 106 MG/DL (70-110)
[2017-09-14 16:08] LABS: GLUCOMETER DEV NAME(LOC) 3EI B; GLUCOSE,POINT OF CARE 140 MG/DL (70-110)
[2017-09-14 16:36] VITALS: BP 104/77
[2017-09-14] MEDS: TraZODone HCL 100 MG TABLET PO SCH (20:10)
[2017-09-14] MEDS: ATORVASTATIN CALCIUM 20 MG TABLET PO SCH (20:10)
[2017-09-14 20:18] LABS: GLUCOMETER DEV NAME(LOC) 3EI B; GLUCOSE,POINT OF CARE 113 MG/DL (70-110)
[2017-09-15 06:12] LABS: GLUCOMETER DEV NAME(LOC) 3EI B; GLUCOSE,POINT OF CARE 104 MG/DL (70-110)
[2017-09-15] MEDS: MetFORMIN HCL 500 MG TABLET PO SCH (06:56)
[2017-09-15] MEDS: ARIPiprazole 10 MG TABLET PO SCH (09:34)
[2017-09-15] MEDS: BENZTROPINE MESYLATE 1 MG TABLET PO SCH (09:34)
[2017-09-15] MEDS: LISINOPRIL 20 MG TABLET PO SCH (09:34)
[2017-09-15 10:48] VITALS: BP 131/74
== END 2017-09-15 10:25 | disposition home or self-care (01) | DRG 750 ==
LOC: EMS 21:11 → 3EI 22:44
PROVIDERS: ADMIT Psychiatry & Neurology Psychiatry; ATTEND Psychiatry & Neurology Psychiatry
PROC: 3E0234Z Introduction of Serum, Toxoid and Vaccine into Muscle, Percutaneous Approach (ICD-10-PCS; principal; 2017-09-12)
DX: F25.9 Schizoaffective disorder, unspecified (principal); E11.319 Type 2 diabetes mellitus with unspecified diabetic retinopathy without macular edema; I10 Essential (primary) hypertension; E55.9 Vitamin D deficiency, unspecified; H54.8 Legal blindness, as defined in USA; J44.9 Chronic obstructive pulmonary disease, unspecified; K21.9 Gastro-esophageal reflux disease without esophagitis; E66.9 Obesity, unspecified; F17.210 Nicotine dependence, cigarettes, uncomplicated; Z79.899 Other long term (current) drug therapy; Z79.84 Long term (current) use of oral hypoglycemic drugs; Z68.34 Body mass index [BMI] 34.0-34.9, adult; Z23 Encounter for immunization
CPT/HCPCS: 82962; 84443; 99285; G0480

== ENCOUNTER 2017-11-05 20:31 | Emergency (ER) | payer MEDICAID ==
[~2017-11-05] VITALS: Ht 167.6 cm; Wt 77.3 kg
[~2017-11-05 20:31] MED LIST changes: -CITA20TA9 PO; -METF500T4 PO
[2017-11-05 22:50] LABS: BASOPHILS % (AUTO) 0.4 % (0.0-2.0); EOSINOPHILS % (AUTO) 1.3 % (1.0-6.0); HEMATOCRIT 40.8 % (36-46); HEMOGLOBIN 14.1 g/dL (12.0-16.0); LYMPHOCYTES # (AUTO) 1.3 K/uL (1.0-4.8); LYMPHOCYTES % (AUTO) 19.3 % (22.0-44.0); MEAN CORPUSCULAR HEMOGLOBIN 32.7 pg (26.0-34.0); MEAN CORPUSCULAR HGB CONC 34.7 G/dL (31.0-37.0); MEAN CORPUSCULAR VOLUME 94 fL (80-100); MONOCYTES # (AUTO) 0.5 K/uL (0.1-1.0); MONOCYTES % (AUTO) 8.3 % (2.0-9.0); NEUTROPHILS # (AUTO) 4.7 K/uL (1.8-7.7); NEUTROPHILS % (AUTO) 70.7 % (40.0-70.0); PLATELET COUNT (AUTO) 194 K/uL (150-450); RED BLOOD CELL COUNT(AUTO) 4.33 MIL/uL (4.00-5.20); RED CELL DISTRIBUTION WIDTH 12.6 % (11.5-14.5)
[2017-11-05 22:55] LABS: ANION GAP 9 mmol/L (8-16); CALCIUM, TOTAL 9.1 mg/dL (8.8-10.5); CARBON DIOXIDE 29 mmol/L (22-29); CHLORIDE 104 mmol/L (98-107); CREATININE 0.81 mg/dL (0.60-1.30); GLOMERULAR FILTR. RATE CALC > 60 mL/min (>60); GLUCOSE,RANDOM 120 mg/dL (70-110); POTASSIUM 4.2 mmol/L (3.5-5.1); SODIUM SERUM 142 mmol/L (136-145); UREA NITROGEN, BLOOD 17 mg/dL (7-18)
[2017-11-05 23:01] LABS: ALANINE AMINOTRANSFERASE 31 U/L (12-78); ALBUMIN 3.8 g/dL (3.4-5.0); ALKALINE PHOSPHATASE 93 U/L (46-116); ASPARTATE AMINOTRANSFERASE 11 U/L (15-37); BILIRUBIN,TOTAL 0.3 mg/dL (0.1-1.0); TOTAL PROTEIN, SERUM 7.2 g/dL (6.4-8.2)
[2017-11-06 00:12] LABS: AMPHET/METH SCREEN,URINE NEGATIVE (NEGATIVE); BARBITURATE SCREEN, URINE NEGATIVE (NEGATIVE); BENZODIAZEPINES SCREEN,URINE NEGATIVE (NEGATIVE); CANNABINOID SCREEN,URINE NEGATIVE (NEGATIVE); COCAINE SCREEN,URINE NEGATIVE (NEGATIVE); METHADONE SCREEN, URINE NEGATIVE (NEGATIVE); OPIATE SCREEN,URINE NEGATIVE (NEGATIVE)
[2017-11-06 00:13] LABS: PHENCYCLIDINE SCREEN,URINE NEGATIVE (NEGATIVE)
[2017-11-06 00:13] LABS: GLUCOSE,POINT OF CARE 138 MG/DL (70-110)
[2017-11-06 01:35] VITALS: BP 128/69
[2017-11-06] MEDS ORDERED: HALOPERIDOL 5 MG TABLET PO ONE (01:45)
[2017-11-06] MEDS ORDERED: BENZTROPINE MESYLATE 2 MG TABLET PO ONE (01:45)
== END 2017-11-06 02:08 | disposition home or self-care (01) ==
LOC: EMS 20:34
DX: F41.9 Anxiety disorder, unspecified (principal); F20.0 Paranoid schizophrenia; R44.0 Auditory hallucinations; F31.9 Bipolar disorder, unspecified; I10 Essential (primary) hypertension; E11.9 Type 2 diabetes mellitus without complications; F17.210 Nicotine dependence, cigarettes, uncomplicated
CPT/HCPCS: 36415; 80053; 80307; 82962; 85025; 99284; 99406; G0480

== ENCOUNTER 2017-12-15 12:41 | Emergency (ER) | payer MEDICAID ==
[~2017-12-15] VITALS: Ht 172.7 cm; Wt 84.5 kg
[2017-12-15 14:07] LABS: BASOPHILS % (AUTO) 0.2 % (0.0-2.0); EOSINOPHILS % (AUTO) 0.4 % (1.0-6.0); HEMATOCRIT 40.1 % (36-46); LYMPHOCYTES # (AUTO) 0.8 K/uL (1.0-4.8); LYMPHOCYTES % (AUTO) 12.5 % (22.0-44.0); MEAN CORPUSCULAR HEMOGLOBIN 32.6 pg (26.0-34.0); MEAN CORPUSCULAR HGB CONC 34.9 G/dL (31.0-37.0); MEAN CORPUSCULAR VOLUME 94 fL (80-100); MONOCYTES # (AUTO) 0.4 K/uL (0.1-1.0); MONOCYTES % (AUTO) 5.8 % (2.0-9.0); NEUTROPHILS # (AUTO) 5.1 K/uL (1.8-7.7); NEUTROPHILS % (AUTO) 81.1 % (40.0-70.0); PLATELET COUNT (AUTO) 186 K/uL (150-450); RED BLOOD CELL COUNT(AUTO) 4.29 MIL/uL (4.00-5.20); RED CELL DISTRIBUTION WIDTH 12.9 % (11.5-14.5)
[2017-12-15 14:18] LABS: ANION GAP 8 mmol/L (8-16); CALCIUM, TOTAL 9.1 mg/dL (8.8-10.5); CARBON DIOXIDE 29 mmol/L (22-29); CHLORIDE 103 mmol/L (98-107); CREATININE 0.79 mg/dL (0.60-1.30); GLOMERULAR FILTR. RATE CALC > 60 mL/min (>60); GLUCOSE,RANDOM 121 mg/dL (70-110); POTASSIUM 3.9 mmol/L (3.5-5.1); SODIUM SERUM 140 mmol/L (136-145); UREA NITROGEN, BLOOD 10 mg/dL (7-18)
[2017-12-15 14:23] LABS: ALANINE AMINOTRANSFERASE 21 U/L (12-78); ALBUMIN 3.5 g/dL (3.4-5.0); ALKALINE PHOSPHATASE 75 U/L (46-116); ASPARTATE AMINOTRANSFERASE 16 U/L (15-37); BILIRUBIN,TOTAL 0.4 mg/dL (0.1-1.0); TOTAL PROTEIN, SERUM 6.9 g/dL (6.4-8.2)
[2017-12-15] MEDS ORDERED: ONDANSETRON HCL 4 MG/2 ML VIAL IVP ONE (15:30)
[2017-12-15] MEDS ORDERED: HYOSCYAMINE SULFATE 0.125 MG TAB PO ONE (16:45)
[2017-12-15 18:33] VITALS: BP 131/77
== END 2017-12-15 18:41 | disposition home or self-care (01) ==
LOC: EMS 12:42
DX: R07.89 Other chest pain (principal); I10 Essential (primary) hypertension; E11.9 Type 2 diabetes mellitus without complications; F17.210 Nicotine dependence, cigarettes, uncomplicated
CPT/HCPCS: 36415; 80053; 84484; 85025; 93005; 96374; 99285; J2405

== ENCOUNTER 2018-05-23 16:27 | Emergency (ER) | payer MEDICAID ==
[~2018-05-23] VITALS: Ht 167.6 cm; Wt 84.1 kg
[~2018-05-23 16:27] MED LIST changes: +PANT40TA25 PO; -TRAZ-147 PO; +TRAZ-220 PO
[2018-05-23] MEDS ORDERED: METF-960 PO (17:51)
[2018-05-23] MEDS ORDERED: ALBUTEROL SULFATE 2.5 MG/0.5 ML NEB SOLUTION NEB ONE (20:00)
[2018-05-23] MEDS ORDERED: IPRATROPIUM BROMIDE 0.5 MG/2.5 ML NEB SOLUTION NEB ONE (20:00)
[2018-05-23] MEDS ORDERED: ARIP15TA2 PO (20:02)
[2018-05-23 21:04] VITALS: BP 149/87
== END 2018-05-23 22:00 | disposition home or self-care (01) ==
LOC: EMS 16:28
DX: J45.909 Unspecified asthma, uncomplicated (principal); F17.210 Nicotine dependence, cigarettes, uncomplicated; F31.9 Bipolar disorder, unspecified; E11.9 Type 2 diabetes mellitus without complications; I10 Essential (primary) hypertension; F20.9 Schizophrenia, unspecified; Z79.899 Other long term (current) drug therapy
CPT/HCPCS: 71045; 82962; 93005; 94640; 99284; 99406; J7613

== ENCOUNTER 2018-08-12 23:27 | Emergency (ER) | payer MEDICAID ==
[~2018-08-12] VITALS: Ht 168.9 cm; Wt 80.9 kg
[~2018-08-12 23:27] MED LIST changes: -ARIP10TA8 PO; +ARIP15TA2 PO; +METF-960 PO
[2018-08-12 23:44] LABS: GLUCOSE,POINT OF CARE 109 MG/DL (70-110)
[2018-08-12] MEDS ORDERED: HYDR-4031 PO (23:45)
[2018-08-12] MEDS ORDERED: ASPI81 PO (23:45)
[2018-08-12] MEDS ORDERED: FLUP5 PO (23:45)
[2018-08-12] MEDS ORDERED: MULT-723 PO (23:45)
[2018-08-12] MEDS ORDERED: CITA-106 PO (23:45)
[2018-08-12 23:46] VITALS: BP 151/95
[2018-08-12] MEDS ORDERED: LATA2.5D2 OU (23:48)
[2018-08-12 23:58] LABS: BASOPHILS % (AUTO) 0.3 % (0.0-2.0); EOSINOPHILS % (AUTO) 1.3 % (1.0-6.0); HEMATOCRIT 39.5 % (36-46); HEMOGLOBIN 13.8 g/dL (12.0-16.0); LYMPHOCYTES # (AUTO) 1.5 K/uL (1.0-4.8); MEAN CORPUSCULAR HEMOGLOBIN 33.3 pg (26.0-34.0); MEAN CORPUSCULAR HGB CONC 34.9 G/dL (31.0-37.0); MEAN CORPUSCULAR VOLUME 95 fL (80-100); MONOCYTES # (AUTO) 0.6 K/uL (0.1-1.0); MONOCYTES % (AUTO) 7.5 % (2.0-9.0); NEUTROPHILS # (AUTO) 6.1 K/uL (1.8-7.7); NEUTROPHILS % (AUTO) 72.9 % (40.0-70.0); PLATELET COUNT (AUTO) 202 K/uL (150-450); RED BLOOD CELL COUNT(AUTO) 4.15 MIL/uL (4.00-5.20); RED CELL DISTRIBUTION WIDTH 12.7 % (11.5-14.5)
[2018-08-13 00:07] LABS: ANION GAP 7 mmol/L (8-16); CALCIUM, TOTAL 8.8 mg/dL (8.8-10.5); CARBON DIOXIDE 30 mmol/L (22-29); CHLORIDE 103 mmol/L (98-107); GLOMERULAR FILTR. RATE CALC > 60 mL/min (>60); GLUCOSE,RANDOM 116 mg/dL (70-110); POTASSIUM 3.7 mmol/L (3.5-5.1); SODIUM SERUM 140 mmol/L (136-145); UREA NITROGEN, BLOOD 14 mg/dL (7-18)
[2018-08-13 00:14] LABS: ALANINE AMINOTRANSFERASE 35 U/L (12-78); ALBUMIN 3.7 g/dL (3.4-5.0); ALKALINE PHOSPHATASE 85 U/L (46-116); ASPARTATE AMINOTRANSFERASE 19 U/L (15-37); BILIRUBIN,TOTAL 0.3 mg/dL (0.1-1.0); TOTAL PROTEIN, SERUM 7.2 g/dL (6.4-8.2)
[2018-08-13 00:19] LABS: SALICYLATE 6.5 mg/dL (2.8-20.0)
[2018-08-13 00:24] LABS: ACETAMINOPHEN < 2 mcg/mL (10-30)
[2018-08-13 00:32] LABS: AMPHET/METH SCREEN,URINE NEGATIVE (NEGATIVE); BARBITURATE SCREEN, URINE NEGATIVE (NEGATIVE); BENZODIAZEPINES SCREEN,URINE NEGATIVE (NEGATIVE); CANNABINOID SCREEN,URINE NEGATIVE (NEGATIVE); COCAINE SCREEN,URINE NEGATIVE (NEGATIVE); METHADONE SCREEN, URINE NEGATIVE (NEGATIVE); OPIATE SCREEN,URINE NEGATIVE (NEGATIVE)
[2018-08-13 00:39] LABS: PHENCYCLIDINE SCREEN,URINE NEGATIVE (NEGATIVE)
== END 2018-08-13 02:25 | disposition home or self-care (01) ==
LOC: EMS 23:28
DX: T43.591A Poisoning by other antipsychotics and neuroleptics, accidental (unintentional), initial encounter (principal); F41.9 Anxiety disorder, unspecified; F31.9 Bipolar disorder, unspecified; F20.9 Schizophrenia, unspecified; I10 Essential (primary) hypertension; E11.9 Type 2 diabetes mellitus without complications; F17.210 Nicotine dependence, cigarettes, uncomplicated; Z79.82 Long term (current) use of aspirin; Z79.899 Other long term (current) drug therapy; Y92.89 Other specified places as the place of occurrence of the external cause
CPT/HCPCS: 36415; 80053; 80307; 82962; 85025; 93005; 99284; G0480 ×2; G0481

== ENCOUNTER 2018-10-30 14:34 | Emergency (ER) | payer MEDICAID ==
[~2018-10-30] VITALS: Ht 170.2 cm; Wt 100.0 kg
[~2018-10-30 14:34] MED LIST changes: -ARIP15TA2 PO; +ASPI81 PO; -ATOR20TA86 PO; -BENZ1TAB10 PO; +CITA-106 PO; +FLUP5 PO; +HYDR-4031 PO; +LATA2.5D2 OU; -METF-960 PO; +MULT-723 PO; -PANT40TA25 PO; -TRAZ-220 PO
[2018-10-30 14:49] LABS: GLUCOSE,POINT OF CARE 112 MG/DL (70-110)
[2018-10-30] MEDS ORDERED: HALOPERIDOL 5 MG TABLET PO ONE (19:30)
[2018-10-30] MEDS ORDERED: LORazepam 2 MG TABLET PO ONE (19:30)
[2018-10-30 22:06] VITALS: BP 141/85
== END 2018-10-30 22:07 | disposition home or self-care (01) ==
LOC: EMS 14:36
DX: F20.0 Paranoid schizophrenia (principal); I10 Essential (primary) hypertension; E11.9 Type 2 diabetes mellitus without complications; F31.9 Bipolar disorder, unspecified; F17.210 Nicotine dependence, cigarettes, uncomplicated; Z79.899 Other long term (current) drug therapy

== ENCOUNTER 2018-10-31 05:03 | Inpatient (IN) | payer MEDICAID ==
[~2018-10-31] VITALS: Ht 167.6 cm; Wt 100.4 kg
[~2018-10-31 05:03] MED LIST changes: -ASPI81 PO
[2018-10-31 05:58] LABS: GLUCOSE,POINT OF CARE 115 MG/DL (70-110)
[2018-10-31 09:29] LABS: AMPHET/METH SCREEN,URINE NEGATIVE (NEGATIVE); BARBITURATE SCREEN, URINE NEGATIVE (NEGATIVE); BENZODIAZEPINES SCREEN,URINE NEGATIVE (NEGATIVE); CANNABINOID SCREEN,URINE NEGATIVE (NEGATIVE); COCAINE SCREEN,URINE NEGATIVE (NEGATIVE); METHADONE SCREEN, URINE NEGATIVE (NEGATIVE); OPIATE SCREEN,URINE NEGATIVE (NEGATIVE); PHENCYCLIDINE SCREEN,URINE NEGATIVE (NEGATIVE)
[2018-10-31] MEDS ORDERED: LORazepam 1 MG TABLET PO ONE (09:30)
[2018-10-31] MEDS ORDERED: HALOPERIDOL 5 MG TABLET PO ONE (09:30)
[2018-10-31 09:44] LABS: BASOPHILS % (AUTO) 0.2 % (0.0-2.0); EOSINOPHILS % (AUTO) 0.6 % (1.0-6.0); HEMATOCRIT 39.5 % (36-46); HEMOGLOBIN 13.7 g/dL (12.0-16.0); LYMPHOCYTES % (AUTO) 14.2 % (22.0-44.0); MEAN CORPUSCULAR HEMOGLOBIN 32.6 pg (26.0-34.0); MEAN CORPUSCULAR HGB CONC 34.7 G/dL (31.0-37.0); MEAN CORPUSCULAR VOLUME 94 fL (80-100); MONOCYTES # (AUTO) 0.5 K/uL (0.1-1.0); MONOCYTES % (AUTO) 6.5 % (2.0-9.0); NEUTROPHILS # (AUTO) 5.6 K/uL (1.8-7.7); NEUTROPHILS % (AUTO) 78.5 % (40.0-70.0); PLATELET COUNT (AUTO) 202 K/uL (150-450); RED CELL DISTRIBUTION WIDTH 12.8 % (11.5-14.5)
[2018-10-31 09:49] LABS: ANION GAP 7 mmol/L (8-16); CALCIUM, TOTAL 9.3 mg/dL (8.8-10.5); CARBON DIOXIDE 31 mmol/L (22-29); CHLORIDE 104 mmol/L (98-107); CREATININE 0.59 mg/dL (0.60-1.30); GLOMERULAR FILTR. RATE CALC > 60 mL/min (>60); GLUCOSE,RANDOM 135 mg/dL (70-110); POTASSIUM 3.9 mmol/L (3.5-5.1); SODIUM SERUM 142 mmol/L (136-145); UREA NITROGEN, BLOOD 10 mg/dL (7-18)
[2018-10-31 09:55] LABS: ALANINE AMINOTRANSFERASE 40 U/L (12-78); ALBUMIN 3.4 g/dL (3.4-5.0); ALKALINE PHOSPHATASE 89 U/L (46-116); ASPARTATE AMINOTRANSFERASE 13 U/L (15-37); BILIRUBIN,TOTAL 0.3 mg/dL (0.1-1.0); TOTAL PROTEIN, SERUM 6.8 g/dL (6.4-8.2)
[2018-10-31] MEDS ORDERED: MAG HYDROX/AL HYDROX/SIMETH ES 30 ML SUSPENSION UDCUP PO PRN (11:15)
[2018-10-31] MEDS ORDERED: GuaiFENesin/D-METHORPHAN [SUGAR-FREE] 200-20MG/10 ML SYRUP UDCUP PO PRN (11:15)
[2018-10-31] MEDS ORDERED: ONDANSETRON HCL 4 MG TABLET PO PRN (11:15)
[2018-10-31] MEDS ORDERED: NICOTINE 14 MG/24 HOUR PATCH TD PRN (11:15)
[2018-10-31] MEDS ORDERED: ALBUTEROL SULFATE HFA 90 MCG/PUFF 8 GM INHALER IH PRN (11:15)
[2018-10-31] MEDS ORDERED: DOCUSATE SODIUM 100 MG CAPSULE PO PRN (11:15)
[2018-10-31] MEDS ORDERED: IBUPROFEN 400 MG TABLET PO PRN (11:15)
[2018-10-31] MEDS ORDERED: PETROLATUM,WHITE 71 GM JELLY TP PRN (11:15)
[2018-10-31] MEDS ORDERED: CloNIDine HCL 0.1 MG TABLET PO PRN (11:15)
[2018-10-31] MEDS ORDERED: LOPERAMIDE HCL 2 MG CAPSULE PO PRN (11:15)
[2018-10-31] MEDS ORDERED: MAGNESIUM HYDROXIDE SUSPENSION 30 ML UDCUP PO PRN (11:15)
[2018-10-31] MEDS ORDERED: ACETAMINOPHEN 325 MG TABLET PO PRN (11:15)
[2018-10-31 11:35] VITALS: BP 143/100
[2018-10-31] MEDS: LISINOPRIL 20 MG TABLET PO SCH (12:31)
[2018-10-31] MEDS: LATANOPROST 0.005% 2.5 ML OPHTHALMIC SOLUTION OU SCH (12:31)
[2018-10-31] MEDS ORDERED: PNEUMOCOCCAL VACCINE POLYVALENT 0.5 ML VIAL [PPSV23] IM ONE (15:30)
[2018-10-31] MEDS: MetFORMIN HCL 500 MG TABLET PO SCH (17:07)
[2018-10-31] MEDS: BENZTROPINE MESYLATE 1 MG TABLET PO SCH (17:07)
[2018-10-31 17:41] VITALS: BP 139/80
[2018-10-31] MEDS: TraZODone HCL 100 MG TABLET PO SCH (21:09)
[2018-11-01] MEDS: MetFORMIN HCL 500 MG TABLET PO SCH ×2 (06:58→17:26)
[2018-11-01 09:22] LABS: BASOPHILS % (AUTO) 0.2 % (0.0-2.0); EOSINOPHILS % (AUTO) 1.4 % (1.0-6.0); HEMATOCRIT 42.2 % (36-46); HEMOGLOBIN 14.4 g/dL (12.0-16.0); LYMPHOCYTES # (AUTO) 1.5 K/uL (1.0-4.8); LYMPHOCYTES % (AUTO) 23.1 % (22.0-44.0); MEAN CORPUSCULAR HEMOGLOBIN 32.3 pg (26.0-34.0); MEAN CORPUSCULAR VOLUME 95 fL (80-100); MONOCYTES # (AUTO) 0.4 K/uL (0.1-1.0); MONOCYTES % (AUTO) 6.6 % (2.0-9.0); NEUTROPHILS # (AUTO) 4.5 K/uL (1.8-7.7); NEUTROPHILS % (AUTO) 68.7 % (40.0-70.0); PLATELET COUNT (AUTO) 222 K/uL (150-450); RED BLOOD CELL COUNT(AUTO) 4.44 MIL/uL (4.00-5.20); RED CELL DISTRIBUTION WIDTH 12.9 % (11.5-14.5)
[2018-11-01 09:35] LABS: HEMOGLOBIN A1C 5.7 % (4.5-6.2)
[2018-11-01 09:47] LABS: ALANINE AMINOTRANSFERASE 36 U/L (12-78); ALBUMIN 3.5 g/dL (3.4-5.0); ALKALINE PHOSPHATASE 93 U/L (46-116); ANION GAP 4 mmol/L (8-16); ASPARTATE AMINOTRANSFERASE 12 U/L (15-37); BILIRUBIN,TOTAL 0.5 mg/dL (0.1-1.0); CALCIUM, TOTAL 9.4 mg/dL (8.8-10.5); CARBON DIOXIDE 34 mmol/L (22-29); CHLORIDE 101 mmol/L (98-107); CREATININE 0.78 mg/dL (0.60-1.30); GLOMERULAR FILTR. RATE CALC > 60 mL/min (>60); GLUCOSE,RANDOM 104 mg/dL (70-110); POTASSIUM 4.3 mmol/L (3.5-5.1); SODIUM SERUM 139 mmol/L (136-145); TOTAL PROTEIN, SERUM 6.9 g/dL (6.4-8.2); TRIGLYCERIDES 141 mg/dL (15-150); UREA NITROGEN, BLOOD 19 mg/dL (7-18)
[2018-11-01 09:48] LABS: CHOL/HDL RATIO 4.2 (3.9-5.7); CHOLESTEROL 184 mg/dL (131-200); HDL CHOLESTEROL 44 mg/dL (40-60); LDL CHOL (CALC.) 112 mg/dL (0-130)
[2018-11-01] MEDS: ARIPiprazole 15 MG TABLET PO SCH (09:58)
[2018-11-01] MEDS: BENZTROPINE MESYLATE 1 MG TABLET PO SCH ×2 (09:59→17:26)
[2018-11-01] MEDS: LISINOPRIL 20 MG TABLET PO SCH (09:59)
[2018-11-01] MEDS: CITALOPRAM HYDROBROMIDE 20 MG TABLET PO SCH (09:59)
[2018-11-01 10:06] VITALS: BP 125/76
[2018-11-01] MEDS: LATANOPROST 0.005% 2.5 ML OPHTHALMIC SOLUTION OU SCH (10:16)
[2018-11-01] MEDS: LORazepam 2 MG TABLET PO PRN (13:45)
[2018-11-01 20:12] VITALS: BP 102/64
[2018-11-01] MEDS: TraZODone HCL 100 MG TABLET PO SCH (20:28)
[2018-11-02 05:34] LABS: GLUCOMETER DEV NAME(LOC) 3E.I; GLUCOSE,POINT OF CARE 103 MG/DL (70-110)
[2018-11-02] MEDS: MetFORMIN HCL 500 MG TABLET PO SCH ×2 (06:42→17:02)
[2018-11-02] MEDS: ARIPiprazole 15 MG TABLET PO SCH (09:38)
[2018-11-02] MEDS: LATANOPROST 0.005% 2.5 ML OPHTHALMIC SOLUTION OU SCH (09:39)
[2018-11-02] MEDS: BENZTROPINE MESYLATE 1 MG TABLET PO SCH ×2 (09:39→16:24)
[2018-11-02] MEDS: CITALOPRAM HYDROBROMIDE 20 MG TABLET PO SCH (09:39)
[2018-11-02] MEDS: LISINOPRIL 20 MG TABLET PO SCH (09:54)
[2018-11-02 10:34] VITALS: BP 136/86
[2018-11-02] MEDS: LORazepam 2 MG TABLET PO PRN (16:50)
[2018-11-02 17:19] LABS: GLUCOMETER DEV NAME(LOC) 3E.I; GLUCOSE,POINT OF CARE 118 MG/DL (70-110)
[2018-11-02 18:05] VITALS: BP 125/79
[2018-11-02] MEDS: TraZODone HCL 100 MG TABLET PO SCH (20:11)
[2018-11-02] MEDS: ZOLPIDEM TARTRATE 10 MG TABLET PO PRN (20:55)
[2018-11-02 23:50] VITALS: BP 138/84
[2018-11-03 05:39] LABS: GLUCOMETER DEV NAME(LOC) 3E.I; GLUCOSE,POINT OF CARE 120 MG/DL (70-110)
[2018-11-03] MEDS: MetFORMIN HCL 500 MG TABLET PO SCH ×2 (06:52→16:59)
[2018-11-03] MEDS: CITALOPRAM HYDROBROMIDE 20 MG TABLET PO SCH (10:14)
[2018-11-03] MEDS: LISINOPRIL 20 MG TABLET PO SCH (10:14)
[2018-11-03] MEDS: BENZTROPINE MESYLATE 1 MG TABLET PO SCH ×2 (10:14→16:05)
[2018-11-03] MEDS: ARIPiprazole 15 MG TABLET PO SCH (10:15)
[2018-11-03] MEDS: LATANOPROST 0.005% 2.5 ML OPHTHALMIC SOLUTION OU SCH (10:15)
[2018-11-03] MEDS: LORazepam 2 MG TABLET PO PRN (16:05)
[2018-11-03 16:23] VITALS: BP 132/70
[2018-11-03] MEDS: TraZODone HCL 100 MG TABLET PO SCH (20:10)
[2018-11-03] MEDS: ZOLPIDEM TARTRATE 10 MG TABLET PO PRN (22:52)
[2018-11-04 00:53] VITALS: BP 123/70
[2018-11-04] MEDS: LORazepam 2 MG TABLET PO PRN ×2 (00:56→10:24)
[2018-11-04 05:24] LABS: GLUCOMETER DEV NAME(LOC) 3E.I; GLUCOSE,POINT OF CARE 98 MG/DL (70-110)
[2018-11-04] MEDS: MetFORMIN HCL 500 MG TABLET PO SCH ×2 (07:02→16:21)
[2018-11-04 08:16] VITALS: BP 127/72
[2018-11-04] MEDS: BENZTROPINE MESYLATE 1 MG TABLET PO SCH ×2 (10:16→16:21)
[2018-11-04] MEDS: ARIPiprazole 15 MG TABLET PO SCH (10:16)
[2018-11-04] MEDS: LATANOPROST 0.005% 2.5 ML OPHTHALMIC SOLUTION OU SCH (10:16)
[2018-11-04] MEDS: LISINOPRIL 20 MG TABLET PO SCH (10:16)
[2018-11-04] MEDS: CITALOPRAM HYDROBROMIDE 20 MG TABLET PO SCH (10:17)
[2018-11-04] MEDS: HALOPERIDOL 5 MG TABLET PO PRN (10:24)
[2018-11-04 18:00] VITALS: BP 121/80
[2018-11-04] MEDS: TraZODone HCL 100 MG TABLET PO SCH (20:37)
[2018-11-05 05:39] LABS: GLUCOMETER DEV NAME(LOC) 3E.I; GLUCOSE,POINT OF CARE 94 MG/DL (70-110)
[2018-11-05] MEDS: MetFORMIN HCL 500 MG TABLET PO SCH ×2 (06:37→16:15)
[2018-11-05 08:00] VITALS: BP 137/92
[2018-11-05] MEDS: LORazepam 2 MG TABLET PO PRN (11:13)
[2018-11-05] MEDS: LATANOPROST 0.005% 2.5 ML OPHTHALMIC SOLUTION OU SCH (11:13)
[2018-11-05] MEDS: HALOPERIDOL 5 MG TABLET PO PRN (11:14)
[2018-11-05] MEDS: LISINOPRIL 20 MG TABLET PO SCH (11:14)
[2018-11-05] MEDS: ARIPiprazole 10 MG TABLET PO SCH (11:14)
[2018-11-05] MEDS: CITALOPRAM HYDROBROMIDE 20 MG TABLET PO SCH (11:14)
[2018-11-05] MEDS: BENZTROPINE MESYLATE 1 MG TABLET PO SCH ×2 (11:14→16:15)
[2018-11-05 16:30] VITALS: BP 115/64
[2018-11-05 16:44] LABS: GLUCOMETER DEV NAME(LOC) 3E.I; GLUCOSE,POINT OF CARE 124 MG/DL (70-110)
[2018-11-05] MEDS: TraZODone HCL 100 MG TABLET PO SCH (20:52)
[2018-11-06 05:54] LABS: GLUCOMETER DEV NAME(LOC) 3E.I; GLUCOSE,POINT OF CARE 113 MG/DL (70-110)
[2018-11-06] MEDS: MetFORMIN HCL 500 MG TABLET PO SCH ×2 (07:09→16:42)
[2018-11-06 08:00] VITALS: BP 135/74
[2018-11-06] MEDS: ARIPiprazole 10 MG TABLET PO SCH (09:10)
[2018-11-06] MEDS: LISINOPRIL 20 MG TABLET PO SCH (09:10)
[2018-11-06] MEDS: LORazepam 2 MG TABLET PO PRN (09:10)
[2018-11-06] MEDS: CITALOPRAM HYDROBROMIDE 20 MG TABLET PO SCH (09:10)
[2018-11-06] MEDS: LATANOPROST 0.005% 2.5 ML OPHTHALMIC SOLUTION OU SCH (09:11)
[2018-11-06] MEDS: BENZTROPINE MESYLATE 1 MG TABLET PO SCH ×2 (09:11→16:18)
[2018-11-06] MEDS: HALOPERIDOL 5 MG TABLET PO PRN (09:11)
[2018-11-06] MEDS ORDERED: METF-960 PO (13:20)
[2018-11-06] MEDS ORDERED: TRAZ-220 PO (13:20)
[2018-11-06] MEDS ORDERED: ARIP10TA8 PO (13:20)
[2018-11-06] MEDS ORDERED: BENZ1TAB10 PO (13:20)
[2018-11-06 16:44] LABS: GLUCOMETER DEV NAME(LOC) 3E.I; GLUCOSE,POINT OF CARE 116 MG/DL (70-110)
== END 2018-11-06 16:50 | disposition home or self-care (01) | DRG 750 ==
LOC: EMS 05:04 → 3EI 10:25
PROVIDERS: ADMIT Psychiatry & Neurology Psychiatry; ATTEND Psychiatry & Neurology Psychiatry
DX: F25.1 Schizoaffective disorder, depressive type (principal); E11.319 Type 2 diabetes mellitus with unspecified diabetic retinopathy without macular edema; R45.851 Suicidal ideations; E66.01 Morbid (severe) obesity due to excess calories; E78.5 Hyperlipidemia, unspecified; F17.200 Nicotine dependence, unspecified, uncomplicated; H54.8 Legal blindness, as defined in USA; I10 Essential (primary) hypertension; J44.9 Chronic obstructive pulmonary disease, unspecified; K21.9 Gastro-esophageal reflux disease without esophagitis; Z81.8 Family history of other mental and behavioral disorders; Z71.6 Tobacco abuse counseling; Z91.5 Personal history of self-harm
CPT/HCPCS: 83036; 84443; G0480

== ENCOUNTER 2018-11-25 10:19 | Emergency (ER) | payer MEDICAID ==
[~2018-11-25] VITALS: Ht 167.6 cm; Wt 79.5 kg
[~2018-11-25 10:19] MED LIST changes: +ARIP10TA8 PO; +BENZ1TAB10 PO; -FLUP5 PO; -HYDR-4031 PO; +METF-960 PO; -MULT-723 PO; +TRAZ-220 PO
[2018-11-25 10:48] LABS: GLUCOSE,POINT OF CARE 133 MG/DL (70-110)
[2018-11-25 11:33] LABS: BASOPHILS % (AUTO) 0.4 % (0.0-2.0); EOSINOPHILS % (AUTO) 0 % (1.0-6.0); HEMATOCRIT 37.1 % (36-46); HEMOGLOBIN 12.9 g/dL (12.0-16.0); LYMPHOCYTES # (AUTO) 0.7 K/uL (1.0-4.8); LYMPHOCYTES % (AUTO) 8.3 % (22.0-44.0); MEAN CORPUSCULAR HEMOGLOBIN 32.5 pg (26.0-34.0); MEAN CORPUSCULAR HGB CONC 34.7 G/dL (31.0-37.0); MEAN CORPUSCULAR VOLUME 94 fL (80-100); MONOCYTES # (AUTO) 0.4 K/uL (0.1-1.0); MONOCYTES % (AUTO) 4.5 % (2.0-9.0); NEUTROPHILS # (AUTO) 7.6 K/uL (1.8-7.7); PLATELET COUNT (AUTO) 250 K/uL (150-450); RED BLOOD CELL COUNT(AUTO) 3.97 MIL/uL (4.00-5.20)
[2018-11-25 11:35] LABS: NEUTROPHILS % (AUTO) 86.8 % (40.0-70.0)
[2018-11-25 11:49] LABS: ANION GAP 8 mmol/L (8-16); CALCIUM, TOTAL 9.3 mg/dL (8.8-10.5); CARBON DIOXIDE 28 mmol/L (22-29); CHLORIDE 94 mmol/L (98-107); CREATININE 0.79 mg/dL (0.60-1.30); GLOMERULAR FILTR. RATE CALC > 60 mL/min (>60); GLUCOSE,RANDOM 138 mg/dL (70-110); POTASSIUM 3.8 mmol/L (3.5-5.1); SODIUM SERUM 130 mmol/L (136-145); UREA NITROGEN, BLOOD 8 mg/dL (7-18)
[2018-11-25 11:59] LABS: ALANINE AMINOTRANSFERASE 9 U/L (12-78); ALBUMIN 3.1 g/dL (3.4-5.0); ALKALINE PHOSPHATASE 58 U/L (46-116); ASPARTATE AMINOTRANSFERASE 6 U/L (15-37); BILIRUBIN,TOTAL 0.4 mg/dL (0.1-1.0); CREATINE KINASE, TOTAL ONLY 21 U/L (26-192); TOTAL PROTEIN, SERUM 6.7 g/dL (6.4-8.2)
[2018-11-25] MEDS ORDERED: TraMADol HCL 50 MG TABLET PO ONE (12:00)
[2018-11-25 12:13] LABS: INFLUENZA TYPE A NEGATIVE FOR TYPE A (NEGATIVE); INFLUENZA TYPE B NEGATIVE FOR TYPE B (NEGATIVE)
[2018-11-25 12:20] LABS: B-TYPE NATRIURETIC PEPTIDE 9 pg/mL (0-100)
[2018-11-25 13:05] LABS: APPEARANCE,URINE CLEAR (CLEAR); BILIRUBIN,URINE NEGATIVE (NEGATIVE); GLUCOSE, URINE (UA) NEGATIVE (NEGATIVE); KETONES,URINE NEGATIVE (NEGATIVE); LEUKOCYTE ESTERASE ,URINE NEGATIVE (NEGATIVE); NITRATE,URINE NEGATIVE (NEGATIVE); OCCULT BLOOD,URINE NEGATIVE (NEGATIVE); PROTEIN,URINE NEGATIVE (NEGATIVE); UROBILINOGEN,URINE 0.2 mg/dL (<=1.0)
[2018-11-25 13:40] VITALS: BP 131/83
== END 2018-11-25 13:55 | disposition home or self-care (01) ==
LOC: EMS 10:20
DX: B34.9 Viral infection, unspecified (principal); E66.9 Obesity, unspecified; E11.36 Type 2 diabetes mellitus with diabetic cataract; E11.319 Type 2 diabetes mellitus with unspecified diabetic retinopathy without macular edema; I10 Essential (primary) hypertension; H54.8 Legal blindness, as defined in USA; F17.210 Nicotine dependence, cigarettes, uncomplicated; F31.9 Bipolar disorder, unspecified; F20.9 Schizophrenia, unspecified; Z79.899 Other long term (current) drug therapy; Z79.84 Long term (current) use of oral hypoglycemic drugs; Z68.28 Body mass index [BMI] 28.0-28.9, adult
CPT/HCPCS: 87804; 93005

== ENCOUNTER 2019-01-14 13:37 | Emergency (ER) | payer MEDICAID ==
[~2019-01-14] VITALS: Ht 167.6 cm; Wt 95.5 kg
[2019-01-14] MEDS ORDERED: ATOR10TA69 PO (14:39)
[2019-01-14] MEDS ORDERED: AMOX200S7 PO (14:39)
[2019-01-14] MEDS ORDERED: FLUP5TAB2 PO (14:39)
[2019-01-14 14:46] LABS: BASOPHILS % (AUTO) 0.3 % (0.0-2.0); EOSINOPHILS % (AUTO) 1.9 % (1.0-6.0); HEMATOCRIT 40.1 % (36-46); HEMOGLOBIN 13.8 g/dL (12.0-16.0); LYMPHOCYTES % (AUTO) 15.4 % (22.0-44.0); MEAN CORPUSCULAR HEMOGLOBIN 32.8 pg (26.0-34.0); MEAN CORPUSCULAR HGB CONC 34.4 G/dL (31.0-37.0); MEAN CORPUSCULAR VOLUME 95 fL (80-100); MONOCYTES # (AUTO) 0.4 K/uL (0.1-1.0); MONOCYTES % (AUTO) 6.6 % (2.0-9.0); NEUTROPHILS # (AUTO) 4.9 K/uL (1.8-7.7); NEUTROPHILS % (AUTO) 75.8 % (40.0-70.0); PLATELET COUNT (AUTO) 228 K/uL (150-450); RED BLOOD CELL COUNT(AUTO) 4.21 MIL/uL (4.00-5.20); RED CELL DISTRIBUTION WIDTH 13.7 % (11.5-14.5)
[2019-01-14] MEDS: HALOPERIDOL 5 MG TABLET PO ONE (15:02)
[2019-01-14] MEDS: DEXAMETHASONE SOD PHOS 4 MG/ML 5 ML VIAL PO ONE (15:02)
[2019-01-14] MEDS: LORazepam 1 MG TABLET PO ONE (15:02)
[2019-01-14 15:08] LABS: ANION GAP 8 mmol/L (8-16); CALCIUM, TOTAL 9.4 mg/dL (8.8-10.5); CARBON DIOXIDE 27 mmol/L (22-29); CHLORIDE 99 mmol/L (98-107); GLOMERULAR FILTR. RATE CALC > 60 mL/min (>60); GLUCOSE,RANDOM 100 mg/dL (70-110); POTASSIUM 4.2 mmol/L (3.5-5.1); SODIUM SERUM 134 mmol/L (136-145); UREA NITROGEN, BLOOD 8 mg/dL (7-18)
[2019-01-14 15:13] LABS: ALANINE AMINOTRANSFERASE 79 U/L (12-78); ALKALINE PHOSPHATASE 86 U/L (46-116); ASPARTATE AMINOTRANSFERASE 36 U/L (15-37); BILIRUBIN,TOTAL 0.3 mg/dL (0.1-1.0); TOTAL PROTEIN, SERUM 7.3 g/dL (6.4-8.2)
[2019-01-14 16:58] LABS: AMPHET/METH SCREEN,URINE NEGATIVE (NEGATIVE); BARBITURATE SCREEN, URINE NEGATIVE (NEGATIVE); BENZODIAZEPINES SCREEN,URINE NEGATIVE (NEGATIVE); CANNABINOID SCREEN,URINE NEGATIVE (NEGATIVE); COCAINE SCREEN,URINE NEGATIVE (NEGATIVE); METHADONE SCREEN, URINE NEGATIVE (NEGATIVE); OPIATE SCREEN,URINE NEGATIVE (NEGATIVE)
[2019-01-14 16:59] LABS: PHENCYCLIDINE SCREEN,URINE NEGATIVE (NEGATIVE)
[2019-01-14 18:15] VITALS: BP 132/87
== END 2019-01-14 18:22 | disposition home or self-care (01) ==
LOC: EMS 13:39
DX: F20.0 Paranoid schizophrenia (principal); T78.40XA Allergy, unspecified, initial encounter; F31.9 Bipolar disorder, unspecified; I10 Essential (primary) hypertension; E11.9 Type 2 diabetes mellitus without complications; F17.210 Nicotine dependence, cigarettes, uncomplicated; Z79.84 Long term (current) use of oral hypoglycemic drugs; Z79.899 Other long term (current) drug therapy; X58.XXXA Exposure to other specified factors, initial encounter
CPT/HCPCS: 36415; 80053; 80307; 85025; 99284; G0480; J1100

== ENCOUNTER 2019-02-06 20:11 | Emergency (ER) | payer MEDICAID ==
[~2019-02-06] VITALS: Ht 160 cm; Wt 81.8 kg
[~2019-02-06 20:11] MED LIST changes: +AMOX200S7 PO; -ARIP10TA8 PO; +ATOR10TA69 PO; +FLUP5TAB2 PO; -LATA2.5D2 OU
[2019-02-06] MEDS ORDERED: DEXAMETHASONE SOD PHOS 4 MG/ML 5 ML VIAL IM ONE (21:00)
[2019-02-06 21:40] VITALS: BP 148/92
== END 2019-02-06 22:11 | disposition home or self-care (01) ==
LOC: EMS 20:16
DX: L25.9 Unspecified contact dermatitis, unspecified cause (principal); E11.319 Type 2 diabetes mellitus with unspecified diabetic retinopathy without macular edema; E11.36 Type 2 diabetes mellitus with diabetic cataract; E66.9 Obesity, unspecified; I10 Essential (primary) hypertension; F20.9 Schizophrenia, unspecified; F31.9 Bipolar disorder, unspecified; F17.210 Nicotine dependence, cigarettes, uncomplicated; Z98.890 Other specified postprocedural states; Z79.899 Other long term (current) drug therapy; Z68.32 Body mass index [BMI] 32.0-32.9, adult
CPT/HCPCS: 96372; 99283; J1100

== ENCOUNTER 2019-04-02 16:03 | Emergency (ER) | payer MEDICAID ==
[~2019-04-02] VITALS: Ht 167.6 cm; Wt 95.0 kg
[2019-04-02] MEDS ORDERED: IBUPROFEN 600 MG TABLET PO ONE (17:00)
[2019-04-02] MEDS ORDERED: CefTRIAXone SODIUM 1 GM/VIAL IM ONE (17:00)
[2019-04-02] MEDS ORDERED: LIDOCAINE/PF 1% 2 ML VIAL IM ONE (17:00)
[2019-04-02] MEDS ORDERED: TRAZ-252 PO (17:08)
[2019-04-02] MEDS ORDERED: ATOR20TA86 PO (17:08)
[2019-04-02] MEDS ORDERED: AMOX1TAB16 PO (17:08)
[2019-04-02 17:32] VITALS: BP 124/82
== END 2019-04-02 17:35 | disposition home or self-care (01) ==
LOC: EMS 16:04
DX: H66.92 Otitis media, unspecified, left ear (principal); E11.9 Type 2 diabetes mellitus without complications; E66.9 Obesity, unspecified; I10 Essential (primary) hypertension; F20.9 Schizophrenia, unspecified; F31.9 Bipolar disorder, unspecified; F17.210 Nicotine dependence, cigarettes, uncomplicated; Z79.899 Other long term (current) drug therapy; Z98.890 Other specified postprocedural states; Z98.49 Cataract extraction status, unspecified eye; Z68.33 Body mass index [BMI] 33.0-33.9, adult
CPT/HCPCS: 82962; 96372; 99283; J0696; J3490

== ENCOUNTER 2019-05-23 22:32 | Emergency (ER) | payer MEDICAID ==
[~2019-05-23] VITALS: Ht 172.7 cm; Wt 93.2 kg
[~2019-05-23 22:32] MED LIST changes: +AMOX1TAB16 PO; -AMOX200S7 PO; -ATOR10TA69 PO; +ATOR20TA86 PO; -TRAZ-220 PO; +TRAZ-252 PO
[2019-05-23 23:12] VITALS: BP 139/83
[2019-05-24 01:36] LABS: HEMATOCRIT 38.8 % (36-46); HEMOGLOBIN 13.4 g/dL (12.0-16.0); MEAN CORPUSCULAR VOLUME 95 fL (80-100); RED BLOOD CELL COUNT(AUTO) 4.07 MIL/uL (4.00-5.20)
[2019-05-24 01:37] LABS: BASOPHILS % (AUTO) 0.3 % (0.0-2.0); EOSINOPHILS % (AUTO) 1.4 % (1.0-6.0); LYMPHOCYTES # (AUTO) 1.2 K/uL (1.0-4.8); LYMPHOCYTES % (AUTO) 19.7 % (22.0-44.0); MEAN CORPUSCULAR HGB CONC 34.6 G/dL (31.0-37.0); MONOCYTES # (AUTO) 0.6 K/uL (0.1-1.0); NEUTROPHILS # (AUTO) 4.4 K/uL (1.8-7.7); NEUTROPHILS % (AUTO) 69.6 % (40.0-70.0); PLATELET COUNT (AUTO) 232 K/uL (150-450)
[2019-05-24 01:46] LABS: ANION GAP 8 mmol/L (8-16); CALCIUM, TOTAL 9.7 mg/dL (8.8-10.5); CARBON DIOXIDE 27 mmol/L (22-29); CHLORIDE 97 mmol/L (98-107); CREATININE 0.81 mg/dL (0.60-1.30); GLOMERULAR FILTR. RATE CALC > 60 mL/min (>60); GLUCOSE,RANDOM 125 mg/dL (70-110); POTASSIUM 4.2 mmol/L (3.5-5.1); SODIUM SERUM 132 mmol/L (136-145); UREA NITROGEN, BLOOD 10 mg/dL (7-18)
[2019-05-24 01:53] LABS: ALANINE AMINOTRANSFERASE 24 U/L (12-78); ALBUMIN 4.2 g/dL (3.4-5.0); ALKALINE PHOSPHATASE 76 U/L (46-116); ASPARTATE AMINOTRANSFERASE 11 U/L (15-37); BILIRUBIN,TOTAL 0.5 mg/dL (0.1-1.0); TOTAL PROTEIN, SERUM 7.6 g/dL (6.4-8.2)
== END 2019-05-24 04:57 | disposition left against medical advice (07) ==
LOC: EMS 22:36
DX: G47.9 Sleep disorder, unspecified (principal); Z53.21 Procedure and treatment not carried out due to patient leaving prior to being seen by health care provider
CPT/HCPCS: 80053; 85025; G0480

== ENCOUNTER 2019-06-09 23:27 | Emergency (ER) | payer MEDICAID ==
[~2019-06-09] VITALS: Ht 172.7 cm; Wt 93.2 kg
[2019-06-10 00:05] LABS: GLUCOSE,POINT OF CARE 135 MG/DL (70-110)
[2019-06-10 04:00] VITALS: BP 140/82
[2019-06-10] MEDS ORDERED: HydrOXYzine PAMOATE 50 MG CAPSULE PO ONE (04:00)
== END 2019-06-10 04:26 | disposition home or self-care (01) ==
LOC: EMS 23:27
DX: F41.9 Anxiety disorder, unspecified (principal); G47.00 Insomnia, unspecified; F31.9 Bipolar disorder, unspecified; E11.9 Type 2 diabetes mellitus without complications; I10 Essential (primary) hypertension; F20.9 Schizophrenia, unspecified; Z79.84 Long term (current) use of oral hypoglycemic drugs; Z79.899 Other long term (current) drug therapy

== ENCOUNTER 2020-10-22 19:54 | Emergency (ER) | payer MEDICAID, OTHER ==
[~2020-10-22] VITALS: Ht 167.6 cm; Wt 104.5 kg
[~2020-10-22 19:54] MED LIST changes: -CITA-106 PO; +CITA-144 PO; -FLUP5TAB2 PO; +FLUP5TAB8 PO; -LISI-662 PO; +LISI-894 PO
[2020-10-22 20:27] VITALS: BP 113/49
[2020-10-22 20:35] LABS: GLUCOSE,POINT OF CARE 141 MG/DL (70-110)
== END 2020-10-22 22:46 | disposition left against medical advice (07) ==
LOC: EMS 19:54
DX: H57.10 Ocular pain, unspecified eye (principal); Z53.21 Procedure and treatment not carried out due to patient leaving prior to being seen by health care provider

== ENCOUNTER 2021-10-13 00:24 | Emergency (ER) | payer MEDICAID, OTHER ==
[~2021-10-13] VITALS: Ht 167.6 cm; Wt 109.1 kg
[~2021-10-13 00:24] MED LIST changes: +METF-1211 PO; -METF-960 PO
[2021-10-13 01:17] VITALS: BP 147/78
[2021-10-13] MEDS ORDERED: ACETAMINOPHEN 325 MG TABLET PO ONE (01:30)
[2021-10-13] MEDS ORDERED: IBUPROFEN 400 MG TABLET PO ONE (01:30)
[2021-10-13] MEDS ORDERED: LIDOCAINE 5% TRANSDERMAL PATCH TD ONE (01:30)
== END 2021-10-13 04:15 | disposition home or self-care (01) ==
LOC: EMS 00:25
DX: M54.41 Lumbago with sciatica, right side (principal); I10 Essential (primary) hypertension; E11.9 Type 2 diabetes mellitus without complications; F31.9 Bipolar disorder, unspecified; F20.9 Schizophrenia, unspecified; F17.210 Nicotine dependence, cigarettes, uncomplicated; Z79.899 Other long term (current) drug therapy; Z79.84 Long term (current) use of oral hypoglycemic drugs
CPT/HCPCS: 73502; 99284

== ENCOUNTER 2021-11-09 00:06 | Emergency (ER) | payer MEDICAID ==
[~2021-11-09] VITALS: Ht 167.6 cm; Wt 105.0 kg
[2021-11-09] MEDS ORDERED: LIDOCAINE 5% TRANSDERMAL PATCH TD ONE (01:45)
[2021-11-09] MEDS ORDERED: IBUPROFEN 400 MG TABLET PO ONE (01:45)
[2021-11-09] MEDS ORDERED: ACETAMINOPHEN 325 MG TABLET PO ONE (01:45)
[2021-11-09 03:37] VITALS: BP 131/84
== END 2021-11-09 03:38 | disposition home or self-care (01) ==
LOC: EMS 00:08
DX: M54.41 Lumbago with sciatica, right side (principal); M25.561 Pain in right knee; M25.562 Pain in left knee; I10 Essential (primary) hypertension; E11.9 Type 2 diabetes mellitus without complications; F31.9 Bipolar disorder, unspecified; F20.9 Schizophrenia, unspecified; F17.210 Nicotine dependence, cigarettes, uncomplicated; Z79.899 Other long term (current) drug therapy
CPT/HCPCS: 99284; Z7502; Z7610

== ENCOUNTER 2022-07-23 12:17 | Inpatient (IN) | payer MEDICAID ==
[~2022-07-23] VITALS: Ht 172.7 cm; Wt 93.4 kg
[~2022-07-23 12:17] MED LIST changes: -BENZ1TAB10 PO; +BENZ1TAB96 PO
[2022-07-23 13:44] LABS: AMPHET/METH SCREEN,URINE POSITIVE (NEGATIVE); BARBITURATE SCREEN, URINE NEGATIVE (NEGATIVE); BENZODIAZEPINES SCREEN,URINE NEGATIVE (NEGATIVE); CANNABINOID SCREEN,URINE NEGATIVE (NEGATIVE); COCAINE SCREEN,URINE NEGATIVE (NEGATIVE); METHADONE SCREEN, URINE NEGATIVE (NEGATIVE); OPIATE SCREEN,URINE NEGATIVE (NEGATIVE); PHENCYCLIDINE SCREEN,URINE NEGATIVE (NEGATIVE)
[2022-07-23 15:45] LABS: BASOPHILS % (AUTO) 0.3 % (0.0-2.0); EOSINOPHILS % (AUTO) 1.4 % (1.0-6.0); HEMATOCRIT 38.3 % (36-46); HEMOGLOBIN 13.1 g/dL (12.0-16.0); LYMPHOCYTES # (AUTO) 1.2 K/uL (1.0-4.8); LYMPHOCYTES % (AUTO) 20.5 % (22.0-44.0); MEAN CORPUSCULAR HEMOGLOBIN 32.7 pg (26.0-34.0); MEAN CORPUSCULAR HGB CONC 34.1 G/dL (31.0-37.0); MEAN CORPUSCULAR VOLUME 96 fL (80-100); MONOCYTES # (AUTO) 0.5 K/uL (0.1-1.0); MONOCYTES % (AUTO) 8.6 % (2.0-9.0); NEUTROPHILS % (AUTO) 69.2 % (40.0-70.0); PLATELET COUNT (AUTO) 210 K/uL (150-450); RED BLOOD CELL COUNT(AUTO) 3.99 MIL/uL (4.00-5.20); RED CELL DISTRIBUTION WIDTH 13.6 % (11.5-14.5)
[2022-07-23 15:55] LABS: ANION GAP 9 mmol/L (8-16); CALCIUM, TOTAL 8.8 mg/dL (8.8-10.5); CARBON DIOXIDE 26 mmol/L (22-29); CHLORIDE 105 mmol/L (98-107); CREATININE 0.84 mg/dL (0.60-1.30); GLOMERULAR FILTR. RATE CALC > 60 mL/min (>60); GLUCOSE,RANDOM 160 mg/dL (70-110); POTASSIUM 3.6 mmol/L (3.5-5.1); SODIUM SERUM 140 mmol/L (136-145); UREA NITROGEN, BLOOD 18 mg/dL (7-18)
[2022-07-23 16:01] LABS: ALANINE AMINOTRANSFERASE 26 U/L (12-78); ALBUMIN 3.2 g/dL (3.4-5.0); ALKALINE PHOSPHATASE 76 U/L (46-116); ASPARTATE AMINOTRANSFERASE 10 U/L (15-37); BILIRUBIN,TOTAL 0.2 mg/dL (0.1-1.0); TOTAL PROTEIN, SERUM 6.5 g/dL (6.4-8.2)
[2022-07-23 16:37] LABS: APPEARANCE,URINE TURBID (CLEAR); BILIRUBIN,URINE NEGATIVE (NEGATIVE); GLUCOSE, URINE (UA) NEGATIVE (NEGATIVE); KETONES,URINE NEGATIVE (NEGATIVE); LEUKOCYTE ESTERASE ,URINE NEGATIVE (NEGATIVE); NITRATE,URINE NEGATIVE (NEGATIVE); OCCULT BLOOD,URINE NEGATIVE (NEGATIVE)
[2022-07-23 16:47] LABS: PROTEIN,URINE NEGATIVE (NEGATIVE)
[2022-07-23] MEDS: OLANZapine 5 MG RAPDIS TABLET PO PRN (16:49)
[2022-07-23] MEDS: LORazepam 2 MG TABLET PO PRN (16:49)
[2022-07-24] MEDS ORDERED: DiphenhydrAMINE HCL 50 MG/ML VIAL IM ONE (01:15)
[2022-07-24] MEDS ORDERED: HALOPERIDOL LACTATE 5 MG/ML VIAL IM ONE (01:15)
[2022-07-24] MEDS ORDERED: LORazepam 2 MG/ML VIAL IM ONE (01:15)
[2022-07-24 13:53] LABS: COVID AG,FIA SOURCE NASAL SWAB
[2022-07-24 15:48] VITALS: BP 144/79
[2022-07-24 16:08] VITALS: BP 144/70
[2022-07-24] MEDS ORDERED: PNEUMOCOCCAL VACCINE POLYVALENT 0.5 ML VIAL [PPSV23] IM. ONE (16:30)
[2022-07-24] MEDS ORDERED: -PHARMACY VACCINE NOTE- MISC ONE (16:45)
[2022-07-24] MEDS ORDERED: GLUCAGON,HUMAN RECOMBINANT 1 MG VIAL IM PRN (17:15)
[2022-07-24] MEDS ORDERED: INSULIN LISPRO 100 UNITS/ML SQ PRN (17:15)
[2022-07-24] MEDS ORDERED: TUBERCULIN, PURIFIED PROTEIN DERIVATIVE 5 TU/0.1 ML SYRINGE ID ONE (20:00)
[2022-07-24] MEDS ORDERED: LOPERAMIDE HCL 2 MG CAPSULE PO PRN (20:00)
[2022-07-24] MEDS ORDERED: MAGNESIUM HYDROXIDE SUSPENSION 30 ML UDCUP PO PRN (20:00)
[2022-07-24] MEDS ORDERED: MAG HYDROX/AL HYDROX/SIMETH ES 30 ML SUSPENSION UDCUP PO PRN (20:00)
[2022-07-24] MEDS ORDERED: HydrOXYzine PAMOATE 50 MG CAPSULE PO PRN (20:00)
[2022-07-24] MEDS ORDERED: GuaiFENesin/D-METHORPHAN [SUGAR-FREE] 200-20MG/10 ML SYRUP UDCUP PO PRN (20:00)
[2022-07-24] MEDS ORDERED: LURASIDONE HCL 40 MG TABLET PO ONE (20:00)
[2022-07-24] MEDS ORDERED: PROMETHAZINE HCL 25 MG TABLET PO PRN (20:00)
[2022-07-24] MEDS ORDERED: HydrALAZINE HCL 25 MG TABLET PO PRN (20:15)
[2022-07-24] MEDS: MELATONIN 5 MG TABLET PO SCH (20:57)
[2022-07-24 23:41] VITALS: BP 140/88
[2022-07-24] MEDS: ZOLPIDEM TARTRATE 10 MG TABLET PO PRN (23:54)
[2022-07-24] MEDS: ACETAMINOPHEN 325 MG TABLET PO PRN (23:56)
[2022-07-25 06:00] VITALS: BP 140/88
[2022-07-25] MEDS: ACETAMINOPHEN 325 MG TABLET PO PRN (06:08)
[2022-07-25] MEDS: MetFORMIN HCL 500 MG TABLET PO SCH ×2 (07:11→16:30)
[2022-07-25 08:15] VITALS: BP 149/94
[2022-07-25] MEDS: OMEGA-3/DHA/EPA/FISH OIL 1,000 MG CAPSULE PO SCH (08:20)
[2022-07-25] MEDS: FLUoxetine HCL 20 MG CAPSULE PO SCH (08:20)
[2022-07-25] MEDS: LISINOPRIL 20 MG TABLET PO SCH (08:20)
[2022-07-25] MEDS: FOLIC ACID 1 MG TABLET PO SCH (08:20)
[2022-07-25] MEDS: NALTREXONE HCL 50 MG TABLET PO SCH (08:21)
[2022-07-25] MEDS: AmLODIPine BESYLATE 5 MG TABLET PO SCH (08:21)
[2022-07-25] MEDS: THIAMINE 100 MG TABLET PO SCH ×2 (08:21→16:29)
[2022-07-25] MEDS: MULTIVITAMINS WITH MINERALS, THERAPEUTIC TABLET PO SCH (08:21)
[2022-07-25] MEDS: ATORVASTATIN CALCIUM 20 MG TABLET PO SCH (08:21)
[2022-07-25 16:51] LABS: GLUCOMETER DEV NAME(LOC) BV3S.; GLUCOSE,POINT OF CARE 130 MG/DL (70-110)
[2022-07-25] MEDS ORDERED: LURASIDONE HCL 40 MG TABLET PO SCH (17:00)
[2022-07-25] MEDS: MELATONIN 5 MG TABLET PO SCH (20:04)
[2022-07-25 20:26] VITALS: BP 141/86
[2022-07-26] MEDS: MetFORMIN HCL 500 MG TABLET PO SCH ×2 (06:17→16:57)
[2022-07-26] MEDS: LISINOPRIL 20 MG TABLET PO SCH (08:45)
[2022-07-26] MEDS: FOLIC ACID 1 MG TABLET PO SCH (08:45)
[2022-07-26] MEDS: NALTREXONE HCL 50 MG TABLET PO SCH (08:46)
[2022-07-26] MEDS: ATORVASTATIN CALCIUM 20 MG TABLET PO SCH (08:46)
[2022-07-26] MEDS: AmLODIPine BESYLATE 5 MG TABLET PO SCH (08:46)
[2022-07-26] MEDS: OMEGA-3/DHA/EPA/FISH OIL 1,000 MG CAPSULE PO SCH (08:46)
[2022-07-26] MEDS: FLUoxetine HCL 20 MG CAPSULE PO SCH (08:46)
[2022-07-26] MEDS: THIAMINE 100 MG TABLET PO SCH ×2 (09:20→16:57)
[2022-07-26] MEDS: MULTIVITAMINS WITH MINERALS, THERAPEUTIC TABLET PO SCH (09:21)
[2022-07-26] MEDS ORDERED: LURASIDONE HCL 60 MG TABLET PO SCH (17:00)
[2022-07-26] MEDS ORDERED: LURASIDONE HCL 80 MG TABLET PO SCH (17:00)
[2022-07-26] MEDS: MELATONIN 5 MG TABLET PO SCH (20:12)
[2022-07-27] MEDS: MetFORMIN HCL 500 MG TABLET PO SCH ×2 (07:00→16:16)
[2022-07-27 08:23] VITALS: BP 139/90
[2022-07-27] MEDS: NALTREXONE HCL 50 MG TABLET PO SCH (08:42)
[2022-07-27] MEDS: FOLIC ACID 1 MG TABLET PO SCH (08:42)
[2022-07-27] MEDS: THIAMINE 100 MG TABLET PO SCH ×2 (08:42→16:16)
[2022-07-27] MEDS: FLUoxetine HCL 20 MG CAPSULE PO SCH (08:42)
[2022-07-27] MEDS: AmLODIPine BESYLATE 5 MG TABLET PO SCH (08:42)
[2022-07-27] MEDS: ATORVASTATIN CALCIUM 20 MG TABLET PO SCH (08:42)
[2022-07-27] MEDS: MULTIVITAMINS WITH MINERALS, THERAPEUTIC TABLET PO SCH (08:42)
[2022-07-27] MEDS: LORazepam 2 MG TABLET PO PRN ×2 (08:42→17:21)
[2022-07-27] MEDS: OLANZapine 5 MG RAPDIS TABLET PO PRN (08:42)
[2022-07-27] MEDS: OMEGA-3/DHA/EPA/FISH OIL 1,000 MG CAPSULE PO SCH (08:42)
[2022-07-27] MEDS: LISINOPRIL 20 MG TABLET PO SCH (08:42)
[2022-07-27] MEDS: LURASIDONE HCL 40 MG TABLET PO SCH (16:17)
[2022-07-27 16:36] LABS: GLUCOMETER DEV NAME(LOC) BV3S.; GLUCOSE,POINT OF CARE 188 MG/DL (70-110)
[2022-07-27 20:12] VITALS: BP 138/85
[2022-07-27] MEDS: MELATONIN 5 MG TABLET PO SCH ×2 (20:48→20:53)
[2022-07-28 06:06] LABS: GLUCOMETER DEV NAME(LOC) BV3S.; GLUCOSE,POINT OF CARE 124 MG/DL (70-110)
[2022-07-28] MEDS: MetFORMIN HCL 500 MG TABLET PO SCH ×2 (06:29→16:55)
[2022-07-28] MEDS: ACETAMINOPHEN 325 MG TABLET PO PRN (07:06)
[2022-07-28 07:10] LABS: HEMOGLOBIN A1C 5.2 % (3.8-5.6)
[2022-07-28 07:22] LABS: ALANINE AMINOTRANSFERASE 47 U/L (12-78); ALBUMIN 3.7 g/dL (3.4-5.0); ALKALINE PHOSPHATASE 99 U/L (46-116); ANION GAP 9 mmol/L (8-16); ASPARTATE AMINOTRANSFERASE 24 U/L (15-37); BILIRUBIN,TOTAL 0.5 mg/dL (0.1-1.0); CALCIUM, TOTAL 9.7 mg/dL (8.8-10.5); CARBON DIOXIDE 27 mmol/L (22-29); CHLORIDE 103 mmol/L (98-107); CHOL/HDL RATIO 3.4 (3.9-5.7); CHOLESTEROL 175 mg/dL (131-200); CREATININE 0.77 mg/dL (0.60-1.30); FREE T4 (FREE THYROXINE) 1.18 ng/dL (0.76-1.46); GLUCOSE,RANDOM 161 mg/dL (70-110); HDL CHOLESTEROL 51 mg/dL (40-60); LDL CHOL (CALC.) 90 mg/dL (0-130); POTASSIUM 3.9 mmol/L (3.5-5.1); SODIUM SERUM 139 mmol/L (136-145); TOTAL PROTEIN, SERUM 7.3 g/dL (6.4-8.2); TRIGLYCERIDES 169 mg/dL (15-150); UREA NITROGEN, BLOOD 15 mg/dL (7-18)
[2022-07-28 07:25] LABS: GLOMERULAR FILTR. RATE CALC > 60 mL/min (>60)
[2022-07-28] MEDS: FOLIC ACID 1 MG TABLET PO SCH (08:40)
[2022-07-28] MEDS: FLUoxetine HCL 20 MG CAPSULE PO SCH (08:40)
[2022-07-28] MEDS: LISINOPRIL 20 MG TABLET PO SCH (08:40)
[2022-07-28] MEDS: ATORVASTATIN CALCIUM 20 MG TABLET PO SCH (08:41)
[2022-07-28] MEDS: MULTIVITAMINS WITH MINERALS, THERAPEUTIC TABLET PO SCH (08:41)
[2022-07-28] MEDS: AmLODIPine BESYLATE 5 MG TABLET PO SCH (08:41)
[2022-07-28] MEDS: NALTREXONE HCL 50 MG TABLET PO SCH (08:41)
[2022-07-28] MEDS: OMEGA-3/DHA/EPA/FISH OIL 1,000 MG CAPSULE PO SCH (08:41)
[2022-07-28] MEDS: THIAMINE 100 MG TABLET PO SCH ×2 (08:41→16:55)
[2022-07-28 09:38] VITALS: BP 144/86
[2022-07-28] MEDS: LURASIDONE HCL 40 MG TABLET PO SCH (16:55)
[2022-07-28] MEDS: MELATONIN 5 MG TABLET PO SCH (20:44)
[2022-07-28 23:12] VITALS: BP 118/75
[2022-07-29] MEDS: MetFORMIN HCL 500 MG TABLET PO SCH ×2 (06:50→16:21)
[2022-07-29] MEDS: AmLODIPine BESYLATE 5 MG TABLET PO SCH (09:00)
[2022-07-29] MEDS: ATORVASTATIN CALCIUM 20 MG TABLET PO SCH (09:00)
[2022-07-29] MEDS: LISINOPRIL 20 MG TABLET PO SCH (09:00)
[2022-07-29] MEDS ORDERED: OMEG-135 PO (10:09)
[2022-07-29] MEDS ORDERED: FLUO20SO2 PO (10:09)
[2022-07-29] MEDS ORDERED: AMLO-257 PO (10:09)
[2022-07-29] MEDS ORDERED: LURA40TA2 PO (10:10)
[2022-07-29] MEDS: OMEGA-3/DHA/EPA/FISH OIL 1,000 MG CAPSULE PO SCH (11:15)
[2022-07-29] MEDS: NALTREXONE HCL 50 MG TABLET PO SCH (11:15)
[2022-07-29] MEDS: FLUoxetine HCL 20 MG CAPSULE PO SCH (11:15)
[2022-07-29] MEDS: MULTIVITAMINS WITH MINERALS, THERAPEUTIC TABLET PO SCH (11:15)
[2022-07-29] MEDS: THIAMINE 100 MG TABLET PO SCH ×2 (11:15→16:20)
[2022-07-29] MEDS: FOLIC ACID 1 MG TABLET PO SCH (11:15)
[2022-07-29] MEDS ORDERED: FLUO20CA36 PO (11:53)
[2022-07-29] MEDS: LURASIDONE HCL 40 MG TABLET PO SCH (16:19)
[2022-07-29 16:20] VITALS: BP 134/97
[2022-07-29] MEDS: LORazepam 2 MG TABLET PO PRN (16:20)
[2022-07-29 17:01] LABS: GLUCOMETER DEV NAME(LOC) BV3S.; GLUCOSE,POINT OF CARE 122 MG/DL (70-110)
[2022-07-29] MEDS: ACETAMINOPHEN 325 MG TABLET PO PRN (17:49)
[2022-07-29] MEDS: MELATONIN 5 MG TABLET PO SCH (21:00)
[2022-07-30] MEDS: MetFORMIN HCL 500 MG TABLET PO SCH ×2 (07:00→16:23)
[2022-07-30] MEDS: THIAMINE 100 MG TABLET PO SCH ×3 (09:00→16:23)
[2022-07-30] MEDS: NALTREXONE HCL 50 MG TABLET PO SCH ×2 (09:00→12:36)
[2022-07-30] MEDS: LISINOPRIL 20 MG TABLET PO SCH ×2 (09:00→12:37)
[2022-07-30] MEDS: FLUoxetine HCL 20 MG CAPSULE PO SCH ×2 (09:00→12:35)
[2022-07-30] MEDS: AmLODIPine BESYLATE 5 MG TABLET PO SCH ×2 (09:00→12:36)
[2022-07-30] MEDS: OMEGA-3/DHA/EPA/FISH OIL 1,000 MG CAPSULE PO SCH ×2 (09:00→12:36)
[2022-07-30] MEDS: FOLIC ACID 1 MG TABLET PO SCH ×2 (09:00→12:37)
[2022-07-30] MEDS: MULTIVITAMINS WITH MINERALS, THERAPEUTIC TABLET PO SCH ×2 (09:00→12:37)
[2022-07-30] MEDS: ATORVASTATIN CALCIUM 20 MG TABLET PO SCH ×2 (09:00→12:36)
[2022-07-30] MEDS: LORazepam 2 MG TABLET PO PRN ×2 (12:37→18:47)
[2022-07-30] MEDS: ACETAMINOPHEN 325 MG TABLET PO PRN (15:14)
[2022-07-30] MEDS: LURASIDONE HCL 60 MG TABLET PO SCH (16:24)
[2022-07-30] MEDS: DIVALPROEX SODIUM 500 MG ER TABLET PO SCH (20:30)
[2022-07-30] MEDS: MELATONIN 5 MG TABLET PO SCH (20:31)
[2022-07-30 21:36] VITALS: BP 118/65
[2022-07-31] MEDS: MetFORMIN HCL 500 MG TABLET PO SCH ×2 (07:00→15:56)
[2022-07-31] MEDS ORDERED: NICOTINE 21 MG/24 HOUR PATCH TD PRN (07:30)
[2022-07-31] MEDS: OMEGA-3/DHA/EPA/FISH OIL 1,000 MG CAPSULE PO SCH (08:09)
[2022-07-31] MEDS: NALTREXONE HCL 50 MG TABLET PO SCH (08:10)
[2022-07-31] MEDS: MULTIVITAMINS WITH MINERALS, THERAPEUTIC TABLET PO SCH (08:10)
[2022-07-31] MEDS: FLUoxetine HCL 20 MG CAPSULE PO SCH (08:10)
[2022-07-31] MEDS: THIAMINE 100 MG TABLET PO SCH ×2 (08:10→15:56)
[2022-07-31] MEDS: ATORVASTATIN CALCIUM 20 MG TABLET PO SCH (08:10)
[2022-07-31] MEDS: AmLODIPine BESYLATE 5 MG TABLET PO SCH (08:10)
[2022-07-31] MEDS: FOLIC ACID 1 MG TABLET PO SCH (08:10)
[2022-07-31] MEDS: LISINOPRIL 20 MG TABLET PO SCH (08:12)
[2022-07-31] MEDS: LURASIDONE HCL 60 MG TABLET PO SCH (15:56)
[2022-07-31] MEDS: DIVALPROEX SODIUM 500 MG ER TABLET PO SCH (20:51)
[2022-07-31] MEDS: MELATONIN 5 MG TABLET PO SCH (20:51)
[2022-07-31 21:26] VITALS: BP 130/76
[2022-08-01] MEDS: MetFORMIN HCL 500 MG TABLET PO SCH ×2 (06:56→16:36)
[2022-08-01] MEDS: OMEGA-3/DHA/EPA/FISH OIL 1,000 MG CAPSULE PO SCH ×2 (09:00→13:06)
[2022-08-01] MEDS: FOLIC ACID 1 MG TABLET PO SCH ×2 (09:00→13:07)
[2022-08-01] MEDS: MULTIVITAMINS WITH MINERALS, THERAPEUTIC TABLET PO SCH ×2 (09:00→13:05)
[2022-08-01] MEDS: AmLODIPine BESYLATE 5 MG TABLET PO SCH ×2 (09:00→13:06)
[2022-08-01] MEDS: NALTREXONE HCL 50 MG TABLET PO SCH ×2 (09:00→13:05)
[2022-08-01] MEDS: THIAMINE 100 MG TABLET PO SCH ×3 (09:00→16:36)
[2022-08-01] MEDS: ATORVASTATIN CALCIUM 20 MG TABLET PO SCH ×2 (09:00→13:05)
[2022-08-01] MEDS: LISINOPRIL 20 MG TABLET PO SCH ×2 (09:00→13:06)
[2022-08-01] MEDS: PARoxetine HCL 20 MG TABLET PO SCH ×2 (09:00→13:06)
[2022-08-01] MEDS: LORazepam 2 MG TABLET PO PRN ×2 (13:07→21:43)
[2022-08-01] MEDS: LURASIDONE HCL 60 MG TABLET PO SCH (16:36)
[2022-08-01 16:47] VITALS: BP 127/71
[2022-08-01] MEDS: ACETAMINOPHEN 325 MG TABLET PO PRN (16:47)
[2022-08-01] MEDS: MELATONIN 5 MG TABLET PO SCH (21:00)
[2022-08-01] MEDS: DIVALPROEX SODIUM 500 MG ER TABLET PO SCH (21:00)
[2022-08-01 21:20] LABS: GLUCOMETER DEV NAME(LOC) BV3S.; GLUCOSE,POINT OF CARE 114 MG/DL (70-110)
[2022-08-02] MEDS: MetFORMIN HCL 500 MG TABLET PO SCH ×2 (07:00→17:04)
[2022-08-02] MEDS: NALTREXONE HCL 50 MG TABLET PO SCH (10:48)
[2022-08-02] MEDS: MULTIVITAMINS WITH MINERALS, THERAPEUTIC TABLET PO SCH (10:49)
[2022-08-02] MEDS: ATORVASTATIN CALCIUM 20 MG TABLET PO SCH (10:49)
[2022-08-02] MEDS: LISINOPRIL 20 MG TABLET PO SCH (10:49)
[2022-08-02] MEDS: PARoxetine HCL 20 MG TABLET PO SCH (10:49)
[2022-08-02] MEDS: FOLIC ACID 1 MG TABLET PO SCH (10:49)
[2022-08-02] MEDS: OMEGA-3/DHA/EPA/FISH OIL 1,000 MG CAPSULE PO SCH (10:49)
[2022-08-02] MEDS: THIAMINE 100 MG TABLET PO SCH ×2 (10:49→17:04)
[2022-08-02] MEDS: AmLODIPine BESYLATE 5 MG TABLET PO SCH (10:49)
[2022-08-02] MEDS: LORazepam 2 MG TABLET PO PRN ×2 (12:22→20:16)
[2022-08-02] MEDS: LURASIDONE HCL 80 MG TABLET PO SCH (17:03)
[2022-08-02] MEDS: LURASIDONE HCL 60 MG TABLET PO SCH (17:04)
[2022-08-02] MEDS: TRIHEXYPHENIDYL HCL 5 MG TABLET PO SCH (17:04)
[2022-08-02] MEDS: MELATONIN 5 MG TABLET PO SCH (20:15)
[2022-08-02] MEDS: DIVALPROEX SODIUM 500 MG ER TABLET PO SCH (20:15)
[2022-08-03 01:06] VITALS: BP 112/78
[2022-08-03] MEDS: ACETAMINOPHEN 325 MG TABLET PO PRN ×2 (04:59→19:16)
[2022-08-03] MEDS: MetFORMIN HCL 500 MG TABLET PO SCH ×2 (06:27→16:00)
[2022-08-03 06:36] LABS: GLUCOMETER DEV NAME(LOC) BV3S.; GLUCOSE,POINT OF CARE 125 MG/DL (70-110)
[2022-08-03] MEDS: TRIHEXYPHENIDYL HCL 5 MG TABLET PO SCH ×3 (08:23→16:00)
[2022-08-03] MEDS: LISINOPRIL 20 MG TABLET PO SCH (08:23)
[2022-08-03] MEDS: MULTIVITAMINS WITH MINERALS, THERAPEUTIC TABLET PO SCH (08:23)
[2022-08-03] MEDS: FOLIC ACID 1 MG TABLET PO SCH (08:23)
[2022-08-03] MEDS: AmLODIPine BESYLATE 5 MG TABLET PO SCH (08:23)
[2022-08-03] MEDS: NALTREXONE HCL 50 MG TABLET PO SCH (08:23)
[2022-08-03] MEDS: THIAMINE 100 MG TABLET PO SCH ×2 (08:23→16:00)
[2022-08-03] MEDS: OMEGA-3/DHA/EPA/FISH OIL 1,000 MG CAPSULE PO SCH (08:23)
[2022-08-03] MEDS: ATORVASTATIN CALCIUM 20 MG TABLET PO SCH (08:24)
[2022-08-03] MEDS: PARoxetine HCL 20 MG TABLET PO SCH (08:26)
[2022-08-03] MEDS: LORazepam 2 MG TABLET PO PRN ×2 (08:48→16:00)
[2022-08-03 11:26] LABS: GLUCOMETER DEV NAME(LOC) POC.BV
[2022-08-03] MEDS: LURASIDONE HCL 60 MG TABLET PO SCH (16:00)
[2022-08-03] MEDS: LURASIDONE HCL 80 MG TABLET PO SCH (16:00)
[2022-08-03 19:16] VITALS: BP 124/75
[2022-08-03] MEDS ORDERED: MIRTAZAPINE 15 MG TABLET PO ONE (19:45)
[2022-08-03] MEDS: DIVALPROEX SODIUM 500 MG ER TABLET PO SCH (20:04)
[2022-08-03] MEDS: ZOLPIDEM TARTRATE 10 MG TABLET PO PRN (20:04)
[2022-08-03] MEDS: MELATONIN 5 MG TABLET PO SCH (20:04)
[2022-08-03 20:38] VITALS: BP 105/75
[2022-08-04 06:27] LABS: GLUCOMETER DEV NAME(LOC) BV3S.; GLUCOSE,POINT OF CARE 88 MG/DL (70-110)
[2022-08-04] MEDS: MetFORMIN HCL 500 MG TABLET PO SCH ×2 (06:54→16:13)
[2022-08-04 08:16] VITALS: BP 108/51
[2022-08-04] MEDS: LORazepam 2 MG TABLET PO PRN ×3 (09:17→21:52)
[2022-08-04] MEDS: ATORVASTATIN CALCIUM 20 MG TABLET PO SCH (09:17)
[2022-08-04] MEDS: OMEGA-3/DHA/EPA/FISH OIL 1,000 MG CAPSULE PO SCH (09:17)
[2022-08-04] MEDS: TRIHEXYPHENIDYL HCL 5 MG TABLET PO SCH ×3 (09:17→18:00)
[2022-08-04] MEDS: NALTREXONE HCL 50 MG TABLET PO SCH (09:17)
[2022-08-04] MEDS: AmLODIPine BESYLATE 5 MG TABLET PO SCH (09:17)
[2022-08-04] MEDS: LISINOPRIL 20 MG TABLET PO SCH (09:17)
[2022-08-04] MEDS: MULTIVITAMINS WITH MINERALS, THERAPEUTIC TABLET PO SCH (09:17)
[2022-08-04] MEDS: LURASIDONE HCL 60 MG TABLET PO SCH (16:13)
[2022-08-04] MEDS: LURASIDONE HCL 80 MG TABLET PO SCH (16:13)
[2022-08-04] MEDS: MIRTAZAPINE 15 MG TABLET PO SCH (20:04)
[2022-08-04 20:05] VITALS: BP 105/60
[2022-08-04] MEDS: ZOLPIDEM TARTRATE 10 MG TABLET PO PRN (20:05)
[2022-08-04] MEDS: MELATONIN 5 MG TABLET PO SCH (20:05)
[2022-08-04] MEDS: DIVALPROEX SODIUM 500 MG ER TABLET PO SCH (20:05)
[2022-08-05 06:31] LABS: GLUCOMETER DEV NAME(LOC) BV3S.; GLUCOSE,POINT OF CARE 78 MG/DL (70-110)
[2022-08-05] MEDS: MetFORMIN HCL 500 MG TABLET PO SCH ×2 (06:41→16:09)
[2022-08-05] MEDS: OMEGA-3/DHA/EPA/FISH OIL 1,000 MG CAPSULE PO SCH (09:35)
[2022-08-05] MEDS: ATORVASTATIN CALCIUM 20 MG TABLET PO SCH (09:35)
[2022-08-05] MEDS: AmLODIPine BESYLATE 5 MG TABLET PO SCH (09:35)
[2022-08-05] MEDS: MULTIVITAMINS WITH MINERALS, THERAPEUTIC TABLET PO SCH (09:35)
[2022-08-05] MEDS: LISINOPRIL 20 MG TABLET PO SCH (09:35)
[2022-08-05] MEDS: TRIHEXYPHENIDYL HCL 5 MG TABLET PO SCH ×3 (09:35→16:09)
[2022-08-05] MEDS: NALTREXONE HCL 50 MG TABLET PO SCH (09:35)
[2022-08-05] MEDS: LORazepam 2 MG TABLET PO PRN (10:01)
[2022-08-05 12:16] LABS: GLUCOMETER DEV NAME(LOC) BV3S.; GLUCOSE,POINT OF CARE 130 MG/DL (70-110)
[2022-08-05] MEDS: LURASIDONE HCL 60 MG TABLET PO SCH (16:09)
[2022-08-05] MEDS: LURASIDONE HCL 80 MG TABLET PO SCH (16:09)
[2022-08-05] MEDS: MIRTAZAPINE 15 MG TABLET PO SCH (20:05)
[2022-08-05] MEDS: MELATONIN 5 MG TABLET PO SCH (20:05)
[2022-08-05] MEDS: DIVALPROEX SODIUM 500 MG ER TABLET PO SCH (20:05)
[2022-08-05 20:07] VITALS: BP 106/60
[2022-08-05] MEDS: ZOLPIDEM TARTRATE 10 MG TABLET PO PRN (22:17)
[2022-08-06] MEDS: MetFORMIN HCL 500 MG TABLET PO SCH ×2 (06:28→16:03)
[2022-08-06 06:31] LABS: GLUCOMETER DEV NAME(LOC) BV3S.; GLUCOSE,POINT OF CARE 93 MG/DL (70-110)
[2022-08-06] MEDS: ATORVASTATIN CALCIUM 20 MG TABLET PO SCH (09:42)
[2022-08-06] MEDS: NALTREXONE HCL 50 MG TABLET PO SCH (09:42)
[2022-08-06] MEDS: AmLODIPine BESYLATE 5 MG TABLET PO SCH (09:42)
[2022-08-06] MEDS: LISINOPRIL 20 MG TABLET PO SCH (09:42)
[2022-08-06] MEDS: MULTIVITAMINS WITH MINERALS, THERAPEUTIC TABLET PO SCH (09:42)
[2022-08-06] MEDS: OMEGA-3/DHA/EPA/FISH OIL 1,000 MG CAPSULE PO SCH (09:42)
[2022-08-06] MEDS: TRIHEXYPHENIDYL HCL 5 MG TABLET PO SCH ×3 (09:42→16:03)
[2022-08-06 11:57] LABS: GLUCOMETER DEV NAME(LOC) BV3S.; GLUCOSE,POINT OF CARE 127 MG/DL (70-110)
[2022-08-06] MEDS: LORazepam 2 MG TABLET PO PRN ×3 (12:05→23:00)
[2022-08-06] MEDS: LURASIDONE HCL 60 MG TABLET PO SCH (16:03)
[2022-08-06] MEDS: LURASIDONE HCL 80 MG TABLET PO SCH (16:04)
[2022-08-06 17:21] LABS: GLUCOMETER DEV NAME(LOC) BV3S.; GLUCOSE,POINT OF CARE 137 MG/DL (70-110)
[2022-08-06] MEDS: DIVALPROEX SODIUM 500 MG ER TABLET PO SCH (19:47)
[2022-08-06] MEDS: MIRTAZAPINE 15 MG TABLET PO SCH (19:47)
[2022-08-06] MEDS: MELATONIN 5 MG TABLET PO SCH (19:49)
[2022-08-06 20:43] VITALS: BP 118/76
[2022-08-06 20:47] LABS: GLUCOMETER DEV NAME(LOC) BV3S.; GLUCOSE,POINT OF CARE 102 MG/DL (70-110)
[2022-08-06] MEDS: ZOLPIDEM TARTRATE 10 MG TABLET PO PRN (22:59)
[2022-08-07 06:36] LABS: GLUCOMETER DEV NAME(LOC) BV3S.; GLUCOSE,POINT OF CARE 91 MG/DL (70-110)
[2022-08-07] MEDS: MetFORMIN HCL 500 MG TABLET PO SCH ×2 (06:42→16:01)
[2022-08-07] MEDS: MULTIVITAMINS WITH MINERALS, THERAPEUTIC TABLET PO SCH (10:15)
[2022-08-07] MEDS: OMEGA-3/DHA/EPA/FISH OIL 1,000 MG CAPSULE PO SCH (10:15)
[2022-08-07] MEDS: TRIHEXYPHENIDYL HCL 5 MG TABLET PO SCH ×3 (10:15→16:01)
[2022-08-07] MEDS: AmLODIPine BESYLATE 5 MG TABLET PO SCH (10:15)
[2022-08-07] MEDS: NALTREXONE HCL 50 MG TABLET PO SCH (10:15)
[2022-08-07] MEDS: LISINOPRIL 20 MG TABLET PO SCH (10:15)
[2022-08-07] MEDS: ATORVASTATIN CALCIUM 20 MG TABLET PO SCH (10:16)
[2022-08-07] MEDS: LORazepam 2 MG TABLET PO PRN ×3 (12:22→23:52)
[2022-08-07] MEDS: LURASIDONE HCL 80 MG TABLET PO SCH (16:01)
[2022-08-07 16:31] LABS: GLUCOMETER DEV NAME(LOC) BV3S.; GLUCOSE,POINT OF CARE 137 MG/DL (70-110)
[2022-08-07] MEDS: OLANZapine 5 MG RAPDIS TABLET PO PRN (16:57)
[2022-08-07] MEDS ORDERED: LURASIDONE HCL 60 MG TABLET PO SCH (17:00)
[2022-08-07] MEDS: MELATONIN 5 MG TABLET PO SCH (20:01)
[2022-08-07] MEDS: MIRTAZAPINE 15 MG TABLET PO SCH (20:01)
[2022-08-07] MEDS: DIVALPROEX SODIUM 500 MG ER TABLET PO SCH (20:01)
[2022-08-07 20:22] VITALS: BP 117/70
[2022-08-07 21:46] LABS: GLUCOMETER DEV NAME(LOC) BV3S.; GLUCOSE,POINT OF CARE 82 MG/DL (70-110)
[2022-08-08] MEDS: ACETAMINOPHEN 325 MG TABLET PO PRN ×2 (02:06→18:26)
[2022-08-08] MEDS: MetFORMIN HCL 500 MG TABLET PO SCH ×2 (07:00→16:36)
[2022-08-08 08:30] VITALS: BP 118/74
[2022-08-08] MEDS: NALTREXONE HCL 50 MG TABLET PO SCH (09:53)
[2022-08-08] MEDS: ATORVASTATIN CALCIUM 20 MG TABLET PO SCH (09:53)
[2022-08-08] MEDS: TRIHEXYPHENIDYL HCL 5 MG TABLET PO SCH ×3 (09:53→16:36)
[2022-08-08] MEDS: OMEGA-3/DHA/EPA/FISH OIL 1,000 MG CAPSULE PO SCH (09:53)
[2022-08-08] MEDS: LISINOPRIL 20 MG TABLET PO SCH (09:54)
[2022-08-08] MEDS: MULTIVITAMINS WITH MINERALS, THERAPEUTIC TABLET PO SCH (09:54)
[2022-08-08] MEDS: AmLODIPine BESYLATE 5 MG TABLET PO SCH (09:54)
[2022-08-08] MEDS: LORazepam 2 MG TABLET PO PRN ×2 (12:05→21:07)
[2022-08-08 12:11] LABS: GLUCOMETER DEV NAME(LOC) BV3S.; GLUCOSE,POINT OF CARE 97 MG/DL (70-110)
[2022-08-08] MEDS: LURASIDONE HCL 80 MG TABLET PO SCH (16:36)
[2022-08-08 20:06] VITALS: BP 118/85
[2022-08-08] MEDS: MELATONIN 5 MG TABLET PO SCH (20:32)
[2022-08-08] MEDS: DIVALPROEX SODIUM 500 MG ER TABLET PO SCH (20:32)
[2022-08-08] MEDS: MIRTAZAPINE 15 MG TABLET PO SCH (20:32)
[2022-08-08] MEDS: OLANZapine 5 MG RAPDIS TABLET PO PRN (21:07)
[2022-08-08] MEDS: ZOLPIDEM TARTRATE 10 MG TABLET PO PRN (22:27)
[2022-08-09] MEDS: MetFORMIN HCL 500 MG TABLET PO SCH ×2 (06:43→16:29)
[2022-08-09] MEDS: NALTREXONE HCL 50 MG TABLET PO SCH (08:40)
[2022-08-09] MEDS: OMEGA-3/DHA/EPA/FISH OIL 1,000 MG CAPSULE PO SCH (08:40)
[2022-08-09] MEDS: TRIHEXYPHENIDYL HCL 5 MG TABLET PO SCH ×3 (08:40→16:29)
[2022-08-09] MEDS: LISINOPRIL 20 MG TABLET PO SCH (08:40)
[2022-08-09] MEDS: MULTIVITAMINS WITH MINERALS, THERAPEUTIC TABLET PO SCH (08:40)
[2022-08-09] MEDS: ATORVASTATIN CALCIUM 20 MG TABLET PO SCH (08:40)
[2022-08-09] MEDS: AmLODIPine BESYLATE 5 MG TABLET PO SCH (08:41)
[2022-08-09 10:46] LABS: GLUCOMETER DEV NAME(LOC) POC.BV
[2022-08-09] MEDS: LORazepam 2 MG TABLET PO PRN ×3 (12:00→20:45)
[2022-08-09 12:26] LABS: GLUCOMETER DEV NAME(LOC) BV3S.; GLUCOSE,POINT OF CARE 195 MG/DL (70-110)
[2022-08-09] MEDS ORDERED: NALT50TA PO (15:40)
[2022-08-09] MEDS ORDERED: MELA5TAB40 PO (15:40)
[2022-08-09] MEDS ORDERED: OMEG-135 PO (15:40)
[2022-08-09] MEDS ORDERED: DIVA-80 PO (15:40)
[2022-08-09] MEDS ORDERED: LURA80TA2 PO (15:40)
[2022-08-09] MEDS ORDERED: MIRT-89 PO (15:40)
[2022-08-09] MEDS ORDERED: TRIH5TAB3 PO (15:40)
[2022-08-09] MEDS: LURASIDONE HCL 80 MG TABLET PO SCH (16:29)
[2022-08-09 17:21] LABS: GLUCOMETER DEV NAME(LOC) BV3S.; GLUCOSE,POINT OF CARE 133 MG/DL (70-110)
[2022-08-09 20:04] VITALS: BP 123/74
[2022-08-09] MEDS: MELATONIN 5 MG TABLET PO SCH (20:18)
[2022-08-09] MEDS: DIVALPROEX SODIUM 500 MG ER TABLET PO SCH (20:18)
[2022-08-09] MEDS: MIRTAZAPINE 15 MG TABLET PO SCH (20:18)
[2022-08-09 21:16] LABS: GLUCOMETER DEV NAME(LOC) BV3S.; GLUCOSE,POINT OF CARE 125 MG/DL (70-110)
[2022-08-09] MEDS: ZOLPIDEM TARTRATE 10 MG TABLET PO PRN (21:30)
[2022-08-10] MEDS: MetFORMIN HCL 500 MG TABLET PO SCH ×2 (06:53→16:27)
[2022-08-10 08:02] VITALS: BP 163/100
[2022-08-10 08:15] VITALS: BP 145/87
[2022-08-10] MEDS: NALTREXONE HCL 50 MG TABLET PO SCH (08:23)
[2022-08-10] MEDS: MULTIVITAMINS WITH MINERALS, THERAPEUTIC TABLET PO SCH (08:23)
[2022-08-10] MEDS: OMEGA-3/DHA/EPA/FISH OIL 1,000 MG CAPSULE PO SCH (08:23)
[2022-08-10] MEDS: TRIHEXYPHENIDYL HCL 5 MG TABLET PO SCH ×3 (08:23→16:27)
[2022-08-10] MEDS: ATORVASTATIN CALCIUM 20 MG TABLET PO SCH (08:23)
[2022-08-10] MEDS: LISINOPRIL 20 MG TABLET PO SCH (08:25)
[2022-08-10] MEDS: AmLODIPine BESYLATE 5 MG TABLET PO SCH (08:25)
[2022-08-10 11:21] LABS: GLUCOMETER DEV NAME(LOC) BV3S.; GLUCOSE,POINT OF CARE 127 MG/DL (70-110)
[2022-08-10] MEDS: LURASIDONE HCL 80 MG TABLET PO SCH (16:27)
[2022-08-10] MEDS: OLANZapine 5 MG RAPDIS TABLET PO PRN (16:28)
[2022-08-10] MEDS: LORazepam 2 MG TABLET PO PRN (16:28)
[2022-08-10 16:56] LABS: GLUCOMETER DEV NAME(LOC) BV3S.; GLUCOSE,POINT OF CARE 114 MG/DL (70-110)
[2022-08-10] MEDS: MELATONIN 5 MG TABLET PO SCH (20:00)
[2022-08-10] MEDS: DIVALPROEX SODIUM 500 MG ER TABLET PO SCH (20:00)
[2022-08-10] MEDS: MIRTAZAPINE 15 MG TABLET PO SCH (20:01)
[2022-08-10 20:04] VITALS: BP 122/78
[2022-08-10 20:21] LABS: GLUCOMETER DEV NAME(LOC) BV3S.; GLUCOSE,POINT OF CARE 89 MG/DL (70-110)
[2022-08-10] MEDS: ZOLPIDEM TARTRATE 10 MG TABLET PO PRN (22:47)
[2022-08-11] MEDS: LORazepam 2 MG TABLET PO PRN ×3 (01:08→16:06)
[2022-08-11] MEDS: OLANZapine 5 MG RAPDIS TABLET PO PRN ×2 (01:23→08:12)
[2022-08-11] MEDS: MetFORMIN HCL 500 MG TABLET PO SCH ×2 (07:03→16:06)
[2022-08-11] MEDS: LISINOPRIL 20 MG TABLET PO SCH (08:11)
[2022-08-11] MEDS: ATORVASTATIN CALCIUM 20 MG TABLET PO SCH (08:11)
[2022-08-11] MEDS: MULTIVITAMINS WITH MINERALS, THERAPEUTIC TABLET PO SCH (08:11)
[2022-08-11] MEDS: TRIHEXYPHENIDYL HCL 5 MG TABLET PO SCH ×3 (08:11→16:06)
[2022-08-11] MEDS: NALTREXONE HCL 50 MG TABLET PO SCH (08:11)
[2022-08-11] MEDS: AmLODIPine BESYLATE 5 MG TABLET PO SCH (08:11)
[2022-08-11] MEDS: OMEGA-3/DHA/EPA/FISH OIL 1,000 MG CAPSULE PO SCH (08:11)
[2022-08-11] MEDS: ACETAMINOPHEN 325 MG TABLET PO PRN (10:15)
[2022-08-11] MEDS: LURASIDONE HCL 80 MG TABLET PO SCH (16:06)
[2022-08-11 20:21] VITALS: BP 108/64
[2022-08-11] MEDS: MIRTAZAPINE 15 MG TABLET PO SCH (21:02)
[2022-08-11] MEDS: MELATONIN 5 MG TABLET PO SCH (21:02)
[2022-08-11] MEDS: DIVALPROEX SODIUM 500 MG ER TABLET PO SCH (21:02)
[2022-08-11 21:11] LABS: GLUCOMETER DEV NAME(LOC) BV3S.; GLUCOSE,POINT OF CARE 100 MG/DL (70-110)
[2022-08-11] MEDS: ZOLPIDEM TARTRATE 10 MG TABLET PO PRN (23:59)
[2022-08-12] MEDS: LORazepam 2 MG TABLET PO PRN ×2 (01:20→08:47)
[2022-08-12] MEDS: ACETAMINOPHEN 325 MG TABLET PO PRN (06:23)
[2022-08-12 06:24] VITALS: BP 126/82
[2022-08-12] MEDS: MetFORMIN HCL 500 MG TABLET PO SCH ×2 (07:00→17:07)
[2022-08-12 08:02] VITALS: BP 119/73
[2022-08-12] MEDS: TRIHEXYPHENIDYL HCL 5 MG TABLET PO SCH ×3 (08:46→17:07)
[2022-08-12] MEDS: NALTREXONE HCL 50 MG TABLET PO SCH (08:47)
[2022-08-12] MEDS: OMEGA-3/DHA/EPA/FISH OIL 1,000 MG CAPSULE PO SCH (08:47)
[2022-08-12] MEDS: MULTIVITAMINS WITH MINERALS, THERAPEUTIC TABLET PO SCH (08:47)
[2022-08-12] MEDS: LISINOPRIL 20 MG TABLET PO SCH (08:47)
[2022-08-12] MEDS: AmLODIPine BESYLATE 5 MG TABLET PO SCH (08:47)
[2022-08-12] MEDS: OLANZapine 5 MG RAPDIS TABLET PO PRN (08:47)
[2022-08-12] MEDS: ATORVASTATIN CALCIUM 20 MG TABLET PO SCH (09:09)
[2022-08-12] MEDS: LURASIDONE HCL 80 MG TABLET PO SCH (17:07)
[2022-08-12 20:15] VITALS: BP 118/70
[2022-08-12] MEDS: MIRTAZAPINE 15 MG TABLET PO SCH (20:47)
[2022-08-12] MEDS: MELATONIN 5 MG TABLET PO SCH (20:48)
[2022-08-12] MEDS: DIVALPROEX SODIUM 500 MG ER TABLET PO SCH (20:48)
[2022-08-12] MEDS: ZOLPIDEM TARTRATE 10 MG TABLET PO PRN (23:59)
[2022-08-13] MEDS: MetFORMIN HCL 500 MG TABLET PO SCH ×2 (06:34→16:50)
[2022-08-13] MEDS: TRIHEXYPHENIDYL HCL 5 MG TABLET PO SCH ×3 (09:46→16:50)
[2022-08-13] MEDS: LISINOPRIL 20 MG TABLET PO SCH (09:47)
[2022-08-13] MEDS: NALTREXONE HCL 50 MG TABLET PO SCH (09:47)
[2022-08-13] MEDS: ATORVASTATIN CALCIUM 20 MG TABLET PO SCH (09:47)
[2022-08-13] MEDS: AmLODIPine BESYLATE 5 MG TABLET PO SCH (09:47)
[2022-08-13] MEDS: MULTIVITAMINS WITH MINERALS, THERAPEUTIC TABLET PO SCH (09:47)
[2022-08-13] MEDS: OMEGA-3/DHA/EPA/FISH OIL 1,000 MG CAPSULE PO SCH (09:47)
[2022-08-13] MEDS: LORazepam 2 MG TABLET PO PRN (11:07)
[2022-08-13 12:06] LABS: GLUCOMETER DEV NAME(LOC) BV3S.; GLUCOSE,POINT OF CARE 107 MG/DL (70-110)
[2022-08-13 12:19] VITALS: BP 120/74
[2022-08-13] MEDS: ACETAMINOPHEN 325 MG TABLET PO PRN ×2 (12:19→20:12)
[2022-08-13] MEDS: LURASIDONE HCL 80 MG TABLET PO SCH (16:50)
[2022-08-13 20:03] VITALS: BP 118/80
[2022-08-13] MEDS: DIVALPROEX SODIUM 500 MG ER TABLET PO SCH (20:11)
[2022-08-13] MEDS: MIRTAZAPINE 15 MG TABLET PO SCH (20:11)
[2022-08-13] MEDS: MELATONIN 5 MG TABLET PO SCH (20:12)
[2022-08-13] MEDS: ZOLPIDEM TARTRATE 10 MG TABLET PO PRN (21:11)
[2022-08-13 21:52] LABS: GLUCOMETER DEV NAME(LOC) BV3S.; GLUCOSE,POINT OF CARE 129 MG/DL (70-110)
[2022-08-14 04:04] VITALS: BP 128/66
[2022-08-14] MEDS: MetFORMIN HCL 500 MG TABLET PO SCH ×2 (06:45→16:15)
[2022-08-14 08:00] VITALS: BP 113/57
[2022-08-14] MEDS: NALTREXONE HCL 50 MG TABLET PO SCH (08:06)
[2022-08-14] MEDS: OMEGA-3/DHA/EPA/FISH OIL 1,000 MG CAPSULE PO SCH (08:06)
[2022-08-14] MEDS: LISINOPRIL 20 MG TABLET PO SCH (08:06)
[2022-08-14] MEDS: AmLODIPine BESYLATE 5 MG TABLET PO SCH (08:06)
[2022-08-14] MEDS: ATORVASTATIN CALCIUM 20 MG TABLET PO SCH (08:06)
[2022-08-14] MEDS: MULTIVITAMINS WITH MINERALS, THERAPEUTIC TABLET PO SCH (08:06)
[2022-08-14] MEDS: TRIHEXYPHENIDYL HCL 5 MG TABLET PO SCH ×3 (08:06→16:15)
[2022-08-14 11:51] LABS: GLUCOMETER DEV NAME(LOC) BV3S.; GLUCOSE,POINT OF CARE 101 MG/DL (70-110)
[2022-08-14 11:51] LABS: GLUCOMETER DEV NAME(LOC) BV3S.; GLUCOSE,POINT OF CARE 118 MG/DL (70-110)
[2022-08-14] MEDS: LURASIDONE HCL 80 MG TABLET PO SCH (16:15)
[2022-08-14] MEDS: LORazepam 2 MG TABLET PO PRN (16:15)
[2022-08-14] MEDS: DIVALPROEX SODIUM 500 MG ER TABLET PO SCH (20:01)
[2022-08-14] MEDS: MELATONIN 5 MG TABLET PO SCH (20:01)
[2022-08-14] MEDS: MIRTAZAPINE 15 MG TABLET PO SCH (20:01)
[2022-08-14] MEDS: ZOLPIDEM TARTRATE 10 MG TABLET PO PRN (20:01)
[2022-08-14 20:14] VITALS: BP 135/63
[2022-08-15 06:31] LABS: GLUCOMETER DEV NAME(LOC) BV3S.; GLUCOSE,POINT OF CARE 84 MG/DL (70-110)
[2022-08-15] MEDS: MetFORMIN HCL 500 MG TABLET PO SCH ×2 (06:53→16:24)
[2022-08-15] MEDS: NALTREXONE HCL 50 MG TABLET PO SCH (09:10)
[2022-08-15] MEDS: AmLODIPine BESYLATE 5 MG TABLET PO SCH (09:10)
[2022-08-15] MEDS: TRIHEXYPHENIDYL HCL 5 MG TABLET PO SCH ×3 (09:10→16:24)
[2022-08-15] MEDS: MULTIVITAMINS WITH MINERALS, THERAPEUTIC TABLET PO SCH (09:10)
[2022-08-15] MEDS: LISINOPRIL 20 MG TABLET PO SCH (09:11)
[2022-08-15] MEDS: ATORVASTATIN CALCIUM 20 MG TABLET PO SCH (09:11)
[2022-08-15] MEDS: OMEGA-3/DHA/EPA/FISH OIL 1,000 MG CAPSULE PO SCH (09:11)
[2022-08-15] MEDS: LURASIDONE HCL 80 MG TABLET PO SCH (16:24)
[2022-08-15] MEDS: DIVALPROEX SODIUM 500 MG ER TABLET PO SCH (20:08)
[2022-08-15] MEDS: MIRTAZAPINE 15 MG TABLET PO SCH (20:08)
[2022-08-15] MEDS: MELATONIN 5 MG TABLET PO SCH (20:09)
[2022-08-15] MEDS: ZOLPIDEM TARTRATE 10 MG TABLET PO PRN (20:09)
[2022-08-15] MEDS: LORazepam 2 MG TABLET PO PRN (20:09)
[2022-08-15 20:19] VITALS: BP 130/68
[2022-08-16 01:25] VITALS: BP 126/78
[2022-08-16] MEDS: ACETAMINOPHEN 325 MG TABLET PO PRN (01:30)
[2022-08-16] MEDS: MetFORMIN HCL 500 MG TABLET PO SCH (06:22)
[2022-08-16] MEDS: AmLODIPine BESYLATE 5 MG TABLET PO SCH (08:04)
[2022-08-16] MEDS: LISINOPRIL 20 MG TABLET PO SCH (08:05)
[2022-08-16] MEDS: MULTIVITAMINS WITH MINERALS, THERAPEUTIC TABLET PO SCH (08:06)
[2022-08-16] MEDS: OMEGA-3/DHA/EPA/FISH OIL 1,000 MG CAPSULE PO SCH (08:06)
[2022-08-16] MEDS: TRIHEXYPHENIDYL HCL 5 MG TABLET PO SCH ×2 (08:06→13:06)
[2022-08-16] MEDS: ATORVASTATIN CALCIUM 20 MG TABLET PO SCH (08:06)
[2022-08-16] MEDS: NALTREXONE HCL 50 MG TABLET PO SCH (08:06)
[2022-08-16 08:17] VITALS: BP 100/62
[2022-08-16] MEDS ORDERED: LISI-894 PO ×2 (09:27→16:26)
[2022-08-16] MEDS ORDERED: METF-1211 PO ×2 (09:27→16:26)
[2022-08-16] MEDS ORDERED: ATOR20TA65 PO (09:27)
[2022-08-16] MEDS ORDERED: AMLO-257 PO (09:27)
[2022-08-16 14:01] LABS: GLUCOMETER DEV NAME(LOC) POC.BV
[2022-08-16] MEDS ORDERED: AMLO5TAB66 PO (16:26)
[2022-08-16] MEDS ORDERED: ATOR20TA86 PO (16:26)
== END 2022-08-16 14:09 | disposition home or self-care (01) | DRG 750 ==
LOC: EMS 12:17 → B3A 07-24 13:54
PROVIDERS: ADMIT Psychiatry & Neurology Psychiatry; ATTEND Psychiatry & Neurology Psychiatry
DX: F25.0 Schizoaffective disorder, bipolar type (principal); E11.319 Type 2 diabetes mellitus with unspecified diabetic retinopathy without macular edema; Z20.822 Contact with and (suspected) exposure to COVID-19; E78.00 Pure hypercholesterolemia, unspecified; F15.10 Other stimulant abuse, uncomplicated; F17.200 Nicotine dependence, unspecified, uncomplicated; F60.0 Paranoid personality disorder; H54.8 Legal blindness, as defined in USA; I10 Essential (primary) hypertension; I73.00 Raynaud's syndrome without gangrene; J44.9 Chronic obstructive pulmonary disease, unspecified; Z59.9 Problem related to housing and economic circumstances, unspecified; Z63.9 Problem related to primary support group, unspecified; Z65.3 Problems related to other legal circumstances; Z78.1 Physical restraint status; Z79.899 Other long term (current) drug therapy; Z82.49 Family history of ischemic heart disease and other diseases of the circulatory system; Z83.3 Family history of diabetes mellitus; Z91.14 Patient's other noncompliance with medication regimen; Z91.199 Patient's noncompliance with other medical treatment and regimen due to unspecified reason; Z91.81 History of falling
CPT/HCPCS: 80053; 80061; 80164; 81003; 82962; 83036; 84439; 85025; 99291; G0480; J1200; J1630; J2060; Q9967

== ENCOUNTER 2022-08-17 14:24 | Inpatient (IN) | payer MEDICAID ==
[~2022-08-17] VITALS: Ht 170.2 cm; Wt 90.9 kg
[~2022-08-17 14:24] MED LIST changes: +AMLO-257 PO; +AMLO5TAB66 PO; -AMOX1TAB16 PO; +ATOR20TA65 PO; -BENZ1TAB96 PO; -CITA-144 PO; +DIVA-80 PO; -FLUP5TAB8 PO; +LURA80TA2 PO; +MELA5TAB40 PO; +MIRT-89 PO; +NALT50TA PO; +OMEG-135 PO; -TRAZ-252 PO; +TRIH5TAB3 PO
[2022-08-17 18:27] LABS: BASOPHILS % (AUTO) 0.1 % (0.0-2.0); EOSINOPHILS % (AUTO) 0.3 % (1.0-6.0); HEMATOCRIT 39.9 % (36-46); HEMOGLOBIN 13.3 g/dL (12.0-16.0); LYMPHOCYTES # (AUTO) 0.9 K/uL (1.0-4.8); LYMPHOCYTES % (AUTO) 14.5 % (22.0-44.0); MEAN CORPUSCULAR HGB CONC 33.4 G/dL (31.0-37.0); MEAN CORPUSCULAR VOLUME 96 fL (80-100); MONOCYTES # (AUTO) 0.5 K/uL (0.1-1.0); MONOCYTES % (AUTO) 8.8 % (2.0-9.0); NEUTROPHILS # (AUTO) 4.6 K/uL (1.8-7.7); NEUTROPHILS % (AUTO) 76.3 % (40.0-70.0); PLATELET COUNT (AUTO) 196 K/uL (150-450); RED BLOOD CELL COUNT(AUTO) 4.16 MIL/uL (4.00-5.20); RED CELL DISTRIBUTION WIDTH 13.2 % (11.5-14.5)
[2022-08-17 18:34] LABS: APPEARANCE,URINE CLEAR (CLEAR); BILIRUBIN,URINE NEGATIVE (NEGATIVE); GLUCOSE, URINE (UA) NEGATIVE (NEGATIVE); KETONES,URINE NEGATIVE (NEGATIVE); LEUKOCYTE ESTERASE ,URINE TRACE (NEGATIVE); NITRATE,URINE NEGATIVE (NEGATIVE); OCCULT BLOOD,URINE NEGATIVE (NEGATIVE); PROTEIN,URINE NEGATIVE (NEGATIVE); SPECIFIC GRAVITIY, URINE 1.009 (1.003-1.030); UROBILINOGEN,URINE <=1.0 mg/dL (<=1.0)
[2022-08-17 18:46] LABS: ANION GAP 8 mmol/L (8-16); CARBON DIOXIDE 30 mmol/L (22-29); CHLORIDE 97 mmol/L (98-107); GLUCOSE,RANDOM 139 mg/dL (70-110); POTASSIUM 4.3 mmol/L (3.5-5.1); SODIUM SERUM 135 mmol/L (136-145); UREA NITROGEN, BLOOD 13 mg/dL (7-18)
[2022-08-17 18:48] LABS: GLOMERULAR FILTR. RATE CALC > 60 mL/min (>60)
[2022-08-17 18:51] LABS: ALANINE AMINOTRANSFERASE 52 U/L (12-78); ALBUMIN 3.5 g/dL (3.4-5.0); ALKALINE PHOSPHATASE 90 U/L (46-116); ASPARTATE AMINOTRANSFERASE 23 U/L (15-37); BILIRUBIN,TOTAL 0.3 mg/dL (0.1-1.0); TOTAL PROTEIN, SERUM 6.8 g/dL (6.4-8.2)
[2022-08-17 18:56] LABS: COVID AG,FIA SOURCE NASAL SWAB
[2022-08-17 19:10] LABS: BACTERIA,URINE None Seen /HPF (None Seen); RBC,URINE None Seen /HPF (0-2); SQUAMOUS EPITHELIAL CELL,UR Few /LPF (None Seen); WBC,URINE 0-2 /HPF (0-5)
[2022-08-18 08:21] LABS: GLUCOSE,POINT OF CARE 88 MG/DL (70-110)
[2022-08-18 08:52] VITALS: BP 125/57
[2022-08-18 13:46] LABS: GLUCOMETER DEV NAME(LOC) 6N.1; GLUCOSE,POINT OF CARE 128 MG/DL (70-110)
[2022-08-18] MEDS ORDERED: ATOR20TA86 PO (15:23)
[2022-08-18] MEDS ORDERED: LURA80TA2 PO (15:23)
[2022-08-18] MEDS ORDERED: OMEG-135 PO (15:23)
[2022-08-18] MEDS ORDERED: TRIH5TAB3 PO (15:23)
[2022-08-18] MEDS ORDERED: AMLO5TAB66 PO (15:23)
[2022-08-18] MEDS ORDERED: DIVA-80 PO (15:23)
[2022-08-18] MEDS ORDERED: METF-1211 PO (15:23)
[2022-08-18] MEDS ORDERED: LISI-894 PO (15:23)
[2022-08-18] MEDS ORDERED: MAGNESIUM HYDROXIDE SUSPENSION 30 ML UDCUP PO PRN (15:30)
[2022-08-18] MEDS ORDERED: IPRATROPIUM BROMIDE 0.5 MG/2.5 ML NEB SOLUTION NEB PRN (15:30)
[2022-08-18] MEDS ORDERED: BISACODYL 10 MG RECTAL RECTAL SUPPOSITORY PR PRN (15:30)
[2022-08-18] MEDS ORDERED: ALBUTEROL SULFATE 2.5 MG/0.5 ML NEB SOLUTION NEB PRN (15:30)
[2022-08-18] MEDS ORDERED: ONDANSETRON HCL 4 MG/2 ML VIAL IVP PRN (15:30)
[2022-08-18] MEDS ORDERED: MORPHINE SULFATE 2 MG/ML SYRINGE IVP PRN (15:30)
[2022-08-18] MEDS ORDERED: DEXTROSE 50%-WATER 25 GM/50 ML SYRINGE IVP PRN (15:45)
[2022-08-18 16:07] VITALS: BP 124/71
[2022-08-18] MEDS: TRIHEXYPHENIDYL HCL 5 MG TABLET PO SCH ×2 (16:41→21:08)
[2022-08-18] MEDS: HEPARIN SODIUM,PORCINE 5,000 UNITS/ML VIAL SQ SCH (16:42)
[2022-08-18] MEDS: MetFORMIN HCL 500 MG ER TABLET PO SCH (17:01)
[2022-08-18] MEDS: INSULIN LISPRO 100 UNITS/ML SQ PRN (17:02)
[2022-08-18] MEDS: LURASIDONE HCL 80 MG TABLET PO SCH (17:50)
[2022-08-18 18:01] LABS: GLUCOMETER DEV NAME(LOC) 6N.2B; GLUCOSE,POINT OF CARE 146 MG/DL (70-110)
[2022-08-18 20:47] VITALS: BP 139/74
[2022-08-18] MEDS: MIRTAZAPINE 15 MG TABLET PO SCH (21:07)
[2022-08-18] MEDS: ATORVASTATIN CALCIUM 20 MG TABLET PO SCH (21:08)
[2022-08-18] MEDS: DIVALPROEX SODIUM 500 MG ER TABLET PO SCH (21:08)
[2022-08-18] MEDS: ZOLPIDEM TARTRATE 5 MG TABLET PO PRN (21:15)
[2022-08-18 21:41] LABS: GLUCOMETER DEV NAME(LOC) 6N.1; GLUCOSE,POINT OF CARE 125 MG/DL (70-110)
[2022-08-19 04:17] VITALS: BP 122/66
[2022-08-19] MEDS: ACETAMINOPHEN 325 MG TABLET PO PRN (06:14)
[2022-08-19 07:31] LABS: GLUCOMETER DEV NAME(LOC) 6N.2B; GLUCOSE,POINT OF CARE 100 MG/DL (70-110)
[2022-08-19] MEDS: AmLODIPine BESYLATE 5 MG TABLET PO SCH (08:29)
[2022-08-19] MEDS: TRIHEXYPHENIDYL HCL 5 MG TABLET PO SCH ×3 (08:29→20:29)
[2022-08-19] MEDS: OMEGA-3/DHA/EPA/FISH OIL 1,000 MG CAPSULE PO SCH (08:29)
[2022-08-19] MEDS: PANTOPRAZOLE SODIUM 40 MG DR TABLET PO SCH (08:29)
[2022-08-19] MEDS: MetFORMIN HCL 500 MG ER TABLET PO SCH ×2 (08:29→17:14)
[2022-08-19] MEDS: HEPARIN SODIUM,PORCINE 5,000 UNITS/ML VIAL SQ SCH ×3 (08:29→16:34)
[2022-08-19] MEDS: FLUoxetine HCL 20 MG CAPSULE PO SCH (08:29)
[2022-08-19] MEDS: LISINOPRIL 20 MG TABLET PO SCH (08:31)
[2022-08-19 15:21] VITALS: BP 138/79
[2022-08-19] MEDS: LURASIDONE HCL 80 MG TABLET PO SCH (17:13)
[2022-08-19 17:36] LABS: GLUCOMETER DEV NAME(LOC) 6N.2B; GLUCOSE,POINT OF CARE 112 MG/DL (70-110)
[2022-08-19 17:36] LABS: GLUCOMETER DEV NAME(LOC) 6N.2B; GLUCOSE,POINT OF CARE 104 MG/DL (70-110)
[2022-08-19 19:36] VITALS: BP 134/77
[2022-08-19] MEDS: MIRTAZAPINE 15 MG TABLET PO SCH (20:29)
[2022-08-19] MEDS: DIVALPROEX SODIUM 500 MG ER TABLET PO SCH (20:29)
[2022-08-19] MEDS: ATORVASTATIN CALCIUM 20 MG TABLET PO SCH (20:29)
[2022-08-19] MEDS: ZOLPIDEM TARTRATE 5 MG TABLET PO PRN (20:29)
[2022-08-20] MEDS: HEPARIN SODIUM,PORCINE 5,000 UNITS/ML VIAL SQ SCH ×4 (00:08→23:19)
[2022-08-20 04:12] VITALS: BP 125/71
[2022-08-20 06:36] LABS: GLUCOMETER DEV NAME(LOC) 6N.2B; GLUCOSE,POINT OF CARE 99 MG/DL (70-110)
[2022-08-20 06:36] LABS: GLUCOMETER DEV NAME(LOC) 6N.2B; GLUCOSE,POINT OF CARE 100 MG/DL (70-110)
[2022-08-20] MEDS: MetFORMIN HCL 500 MG ER TABLET PO SCH ×2 (08:20→17:06)
[2022-08-20] MEDS: PANTOPRAZOLE SODIUM 40 MG DR TABLET PO SCH (08:20)
[2022-08-20] MEDS: OMEGA-3/DHA/EPA/FISH OIL 1,000 MG CAPSULE PO SCH (08:20)
[2022-08-20] MEDS: TRIHEXYPHENIDYL HCL 5 MG TABLET PO SCH ×3 (08:20→19:45)
[2022-08-20] MEDS: AmLODIPine BESYLATE 5 MG TABLET PO SCH (08:20)
[2022-08-20] MEDS: FLUoxetine HCL 20 MG CAPSULE PO SCH (08:21)
[2022-08-20] MEDS: LISINOPRIL 20 MG TABLET PO SCH (08:21)
[2022-08-20 08:55] VITALS: BP 132/75
[2022-08-20] MEDS: INSULIN LISPRO 100 UNITS/ML SQ PRN ×3 (11:34→17:18)
[2022-08-20 15:01] LABS: GLUCOMETER DEV NAME(LOC) 6N.1; GLUCOSE,POINT OF CARE 139 MG/DL (70-110)
[2022-08-20] MEDS: LURASIDONE HCL 80 MG TABLET PO SCH (17:07)
[2022-08-20 19:46] LABS: GLUCOMETER DEV NAME(LOC) 6N.2B; GLUCOSE,POINT OF CARE 117 MG/DL (70-110)
[2022-08-20] MEDS: DIVALPROEX SODIUM 500 MG ER TABLET PO SCH (19:46)
[2022-08-20] MEDS: MIRTAZAPINE 15 MG TABLET PO SCH (19:46)
[2022-08-20] MEDS: ATORVASTATIN CALCIUM 20 MG TABLET PO SCH (19:46)
[2022-08-20] MEDS: ACETAMINOPHEN 325 MG TABLET PO PRN (19:47)
[2022-08-20 21:26] LABS: GLUCOMETER DEV NAME(LOC) 6N.1; GLUCOSE,POINT OF CARE 124 MG/DL (70-110)
[2022-08-20 22:19] VITALS: BP 149/77
[2022-08-20] MEDS: ZOLPIDEM TARTRATE 5 MG TABLET PO PRN (23:21)
[2022-08-21] VITALS: BP 116/66
[2022-08-21 07:46] LABS: GLUCOMETER DEV NAME(LOC) 6N.2B; GLUCOSE,POINT OF CARE 79 MG/DL (70-110)
[2022-08-21 08:01] VITALS: BP 115/67
[2022-08-21] MEDS: PANTOPRAZOLE SODIUM 40 MG DR TABLET PO SCH (08:27)
[2022-08-21] MEDS: OMEGA-3/DHA/EPA/FISH OIL 1,000 MG CAPSULE PO SCH (08:27)
[2022-08-21] MEDS: FLUoxetine HCL 20 MG CAPSULE PO SCH (08:27)
[2022-08-21] MEDS: MetFORMIN HCL 500 MG ER TABLET PO SCH ×2 (08:27→18:15)
[2022-08-21] MEDS: AmLODIPine BESYLATE 5 MG TABLET PO SCH (08:28)
[2022-08-21] MEDS: TRIHEXYPHENIDYL HCL 5 MG TABLET PO SCH ×3 (08:28→19:52)
[2022-08-21] MEDS: LISINOPRIL 20 MG TABLET PO SCH (08:28)
[2022-08-21] MEDS: HEPARIN SODIUM,PORCINE 5,000 UNITS/ML VIAL SQ SCH ×3 (08:29→23:33)
[2022-08-21] MEDS: ACETAMINOPHEN 325 MG TABLET PO PRN (08:29)
[2022-08-21 13:16] LABS: GLUCOMETER DEV NAME(LOC) 6N.2B; GLUCOSE,POINT OF CARE 115 MG/DL (70-110)
[2022-08-21 15:40] VITALS: BP 117/63
[2022-08-21 18:07] LABS: GLUCOMETER DEV NAME(LOC) 6N.2B; GLUCOSE,POINT OF CARE 116 MG/DL (70-110)
[2022-08-21] MEDS: LURASIDONE HCL 80 MG TABLET PO SCH (18:14)
[2022-08-21] MEDS: ATORVASTATIN CALCIUM 20 MG TABLET PO SCH (19:52)
[2022-08-21] MEDS: DIVALPROEX SODIUM 500 MG ER TABLET PO SCH (19:52)
[2022-08-21] MEDS: MIRTAZAPINE 15 MG TABLET PO SCH (19:52)
[2022-08-21 20:05] VITALS: BP 121/66
[2022-08-22] MEDS: MetFORMIN HCL 500 MG ER TABLET PO SCH ×2 (08:36→17:45)
[2022-08-22] MEDS: HEPARIN SODIUM,PORCINE 5,000 UNITS/ML VIAL SQ SCH ×4 (08:36→23:08)
[2022-08-22] MEDS: TRIHEXYPHENIDYL HCL 5 MG TABLET PO SCH ×3 (08:36→20:21)
[2022-08-22] MEDS: LISINOPRIL 20 MG TABLET PO SCH (08:36)
[2022-08-22] MEDS: OMEGA-3/DHA/EPA/FISH OIL 1,000 MG CAPSULE PO SCH (08:37)
[2022-08-22] MEDS: AmLODIPine BESYLATE 5 MG TABLET PO SCH (08:37)
[2022-08-22] MEDS: FLUoxetine HCL 20 MG CAPSULE PO SCH (08:37)
[2022-08-22] MEDS: PANTOPRAZOLE SODIUM 40 MG DR TABLET PO SCH (08:37)
[2022-08-22 08:47] VITALS: BP 125/62
[2022-08-22] MEDS: INSULIN LISPRO 100 UNITS/ML SQ PRN (13:36)
[2022-08-22 14:56] LABS: GLUCOMETER DEV NAME(LOC) 6N.1; GLUCOSE,POINT OF CARE 88 MG/DL (70-110)
[2022-08-22 14:56] LABS: GLUCOMETER DEV NAME(LOC) 6N.1; GLUCOSE,POINT OF CARE 138 MG/DL (70-110)
[2022-08-22 15:48] VITALS: BP 106/69
[2022-08-22 17:16] LABS: GLUCOMETER DEV NAME(LOC) 6N.1; GLUCOSE,POINT OF CARE 87 MG/DL (70-110)
[2022-08-22] MEDS: LURASIDONE HCL 80 MG TABLET PO SCH (17:47)
[2022-08-22] MEDS: MIRTAZAPINE 15 MG TABLET PO SCH (20:21)
[2022-08-22] MEDS: ATORVASTATIN CALCIUM 20 MG TABLET PO SCH (20:21)
[2022-08-22] MEDS: DIVALPROEX SODIUM 500 MG ER TABLET PO SCH (20:21)
[2022-08-22 20:30] VITALS: BP 110/74
[2022-08-22 22:51] LABS: GLUCOMETER DEV NAME(LOC) 6N.1; GLUCOSE,POINT OF CARE 125 MG/DL (70-110)
[2022-08-23 01:32] VITALS: BP 118/68
[2022-08-23] MEDS: ACETAMINOPHEN 325 MG TABLET PO PRN (05:37)
[2022-08-23 07:37] LABS: GLUCOMETER DEV NAME(LOC) 6N.2B; GLUCOSE,POINT OF CARE 107 MG/DL (70-110)
[2022-08-23 07:45] VITALS: BP 130/70
[2022-08-23] MEDS: MetFORMIN HCL 500 MG ER TABLET PO SCH (08:00)
[2022-08-23] MEDS: HEPARIN SODIUM,PORCINE 5,000 UNITS/ML VIAL SQ SCH ×2 (08:00→16:48)
[2022-08-23] MEDS: TRIHEXYPHENIDYL HCL 5 MG TABLET PO SCH ×4 (09:00→20:20)
[2022-08-23] MEDS: OMEGA-3/DHA/EPA/FISH OIL 1,000 MG CAPSULE PO SCH (09:00)
[2022-08-23] MEDS: AmLODIPine BESYLATE 5 MG TABLET PO SCH (09:00)
[2022-08-23] MEDS: LISINOPRIL 20 MG TABLET PO SCH (09:00)
[2022-08-23] MEDS: FLUoxetine HCL 20 MG CAPSULE PO SCH (09:00)
[2022-08-23] MEDS: PANTOPRAZOLE SODIUM 40 MG DR TABLET PO SCH (09:00)
[2022-08-23] MEDS: LURASIDONE HCL 80 MG TABLET PO SCH (18:00)
[2022-08-23 20:11] LABS: GLUCOMETER DEV NAME(LOC) 6N.1; GLUCOSE,POINT OF CARE 133 MG/DL (70-110)
[2022-08-23] MEDS: DIVALPROEX SODIUM 500 MG ER TABLET PO SCH (20:20)
[2022-08-23] MEDS: ATORVASTATIN CALCIUM 20 MG TABLET PO SCH (20:20)
[2022-08-23] MEDS: MIRTAZAPINE 15 MG TABLET PO SCH (20:20)
[2022-08-23 20:29] VITALS: BP 152/94
[2022-08-24] MEDS: HEPARIN SODIUM,PORCINE 5,000 UNITS/ML VIAL SQ SCH ×5 (00:03→23:17)
[2022-08-24 00:56] LABS: GLUCOMETER DEV NAME(LOC) 6N.2B; GLUCOSE,POINT OF CARE 125 MG/DL (70-110)
[2022-08-24 05:25] VITALS: BP 124/63
[2022-08-24] MEDS: ACETAMINOPHEN 325 MG TABLET PO PRN (05:43)
[2022-08-24 07:46] LABS: GLUCOMETER DEV NAME(LOC) 6N.1; GLUCOSE,POINT OF CARE 112 MG/DL (70-110)
[2022-08-24] MEDS: AmLODIPine BESYLATE 5 MG TABLET PO SCH (09:03)
[2022-08-24] MEDS: LISINOPRIL 20 MG TABLET PO SCH (09:03)
[2022-08-24] MEDS: PANTOPRAZOLE SODIUM 40 MG DR TABLET PO SCH (09:03)
[2022-08-24] MEDS: TRIHEXYPHENIDYL HCL 5 MG TABLET PO SCH ×4 (09:03→20:13)
[2022-08-24] MEDS: FLUoxetine HCL 20 MG CAPSULE PO SCH (09:04)
[2022-08-24] MEDS: OMEGA-3/DHA/EPA/FISH OIL 1,000 MG CAPSULE PO SCH (09:04)
[2022-08-24] MEDS: MetFORMIN HCL 500 MG ER TABLET PO SCH ×3 (09:05→17:16)
[2022-08-24 11:47] LABS: COVID AG,FIA SOURCE NASAL SWAB
[2022-08-24 15:48] VITALS: BP 113/63
[2022-08-24] MEDS: INSULIN LISPRO 100 UNITS/ML SQ PRN (16:46)
[2022-08-24] MEDS: LURASIDONE HCL 80 MG TABLET PO SCH (17:16)
[2022-08-24 20:10] VITALS: BP 125/66
[2022-08-24] MEDS: MIRTAZAPINE 15 MG TABLET PO SCH (20:13)
[2022-08-24] MEDS: ATORVASTATIN CALCIUM 20 MG TABLET PO SCH (20:13)
[2022-08-24] MEDS: DIVALPROEX SODIUM 500 MG ER TABLET PO SCH (20:14)
[2022-08-24] MEDS: ZOLPIDEM TARTRATE 5 MG TABLET PO PRN (21:48)
[2022-08-24 22:51] LABS: GLUCOMETER DEV NAME(LOC) 6N.1; GLUCOSE,POINT OF CARE 141 MG/DL (70-110)
[2022-08-24 22:51] LABS: GLUCOMETER DEV NAME(LOC) 6N.1; GLUCOSE,POINT OF CARE 138 MG/DL (70-110)
[2022-08-25 08:14] VITALS: BP 109/74
[2022-08-25] MEDS: LISINOPRIL 20 MG TABLET PO SCH (09:22)
[2022-08-25] MEDS: TRIHEXYPHENIDYL HCL 5 MG TABLET PO SCH ×3 (09:22→20:28)
[2022-08-25] MEDS: FLUoxetine HCL 20 MG CAPSULE PO SCH (09:22)
[2022-08-25] MEDS: AmLODIPine BESYLATE 5 MG TABLET PO SCH (09:22)
[2022-08-25] MEDS: MetFORMIN HCL 500 MG ER TABLET PO SCH ×2 (09:22→16:56)
[2022-08-25] MEDS: OMEGA-3/DHA/EPA/FISH OIL 1,000 MG CAPSULE PO SCH (09:22)
[2022-08-25] MEDS: HEPARIN SODIUM,PORCINE 5,000 UNITS/ML VIAL SQ SCH ×2 (09:22→16:56)
[2022-08-25] MEDS: PANTOPRAZOLE SODIUM 40 MG DR TABLET PO SCH (09:22)
[2022-08-25 14:11] LABS: GLUCOMETER DEV NAME(LOC) 6N.1; GLUCOSE,POINT OF CARE 91 MG/DL (70-110)
[2022-08-25 15:19] VITALS: BP 164/90
[2022-08-25] MEDS: LURASIDONE HCL 80 MG TABLET PO SCH (16:56)
[2022-08-25] MEDS: INSULIN LISPRO 100 UNITS/ML SQ PRN (18:01)
[2022-08-25] MEDS: ATORVASTATIN CALCIUM 20 MG TABLET PO SCH (20:28)
[2022-08-25] MEDS: MIRTAZAPINE 15 MG TABLET PO SCH (20:28)
[2022-08-25] MEDS: DIVALPROEX SODIUM 500 MG ER TABLET PO SCH (20:29)
[2022-08-25 20:35] VITALS: BP 111/76
[2022-08-25] MEDS: ZOLPIDEM TARTRATE 5 MG TABLET PO PRN (22:09)
[2022-08-25 23:36] LABS: GLUCOMETER DEV NAME(LOC) 6N.1; GLUCOSE,POINT OF CARE 160 MG/DL (70-110)
[2022-08-25 23:36] LABS: GLUCOMETER DEV NAME(LOC) 6N.2B; GLUCOSE,POINT OF CARE 120 MG/DL (70-110)
[2022-08-26 04:00] VITALS: BP 111/51
[2022-08-26 07:43] VITALS: BP 90/64
[2022-08-26] MEDS: HEPARIN SODIUM,PORCINE 5,000 UNITS/ML VIAL SQ SCH ×5 (08:00→23:51)
[2022-08-26] MEDS: MetFORMIN HCL 500 MG ER TABLET PO SCH ×2 (08:00→17:07)
[2022-08-26] MEDS: PANTOPRAZOLE SODIUM 40 MG DR TABLET PO SCH ×2 (09:00→11:26)
[2022-08-26] MEDS: OMEGA-3/DHA/EPA/FISH OIL 1,000 MG CAPSULE PO SCH ×2 (09:00→11:26)
[2022-08-26] MEDS: AmLODIPine BESYLATE 5 MG TABLET PO SCH ×2 (09:00→11:26)
[2022-08-26] MEDS: LISINOPRIL 20 MG TABLET PO SCH (09:00)
[2022-08-26] MEDS: TRIHEXYPHENIDYL HCL 5 MG TABLET PO SCH ×3 (09:00→20:11)
[2022-08-26] MEDS: FLUoxetine HCL 20 MG CAPSULE PO SCH ×2 (09:00→11:27)
[2022-08-26 11:22] VITALS: BP 106/65
[2022-08-26 15:30] VITALS: BP 112/73
[2022-08-26] MEDS: LURASIDONE HCL 80 MG TABLET PO SCH (17:10)
[2022-08-26 19:32] VITALS: BP 142/67
[2022-08-26 19:51] LABS: GLUCOMETER DEV NAME(LOC) 6N.2B; GLUCOSE,POINT OF CARE 107 MG/DL (70-110)
[2022-08-26 19:51] LABS: GLUCOMETER DEV NAME(LOC) 6N.2B; GLUCOSE,POINT OF CARE 129 MG/DL (70-110)
[2022-08-26] MEDS: ZOLPIDEM TARTRATE 5 MG TABLET PO PRN (20:11)
[2022-08-26] MEDS: DIVALPROEX SODIUM 500 MG ER TABLET PO SCH (20:11)
[2022-08-26] MEDS: ATORVASTATIN CALCIUM 20 MG TABLET PO SCH (20:11)
[2022-08-26] MEDS: MIRTAZAPINE 15 MG TABLET PO SCH (20:11)
[2022-08-26] MEDS: INSULIN LISPRO 100 UNITS/ML SQ PRN (21:01)
[2022-08-26 22:16] LABS: GLUCOMETER DEV NAME(LOC) 6N.2B; GLUCOSE,POINT OF CARE 164 MG/DL (70-110)
[2022-08-27 07:25] VITALS: BP 122/72
[2022-08-27] MEDS: HEPARIN SODIUM,PORCINE 5,000 UNITS/ML VIAL SQ SCH ×3 (08:00→23:27)
[2022-08-27] MEDS: OMEGA-3/DHA/EPA/FISH OIL 1,000 MG CAPSULE PO SCH (08:32)
[2022-08-27] MEDS: PANTOPRAZOLE SODIUM 40 MG DR TABLET PO SCH (08:32)
[2022-08-27] MEDS: MetFORMIN HCL 500 MG ER TABLET PO SCH ×2 (08:33→17:45)
[2022-08-27] MEDS: TRIHEXYPHENIDYL HCL 5 MG TABLET PO SCH ×3 (08:33→19:59)
[2022-08-27] MEDS: AmLODIPine BESYLATE 5 MG TABLET PO SCH (08:33)
[2022-08-27] MEDS: FLUoxetine HCL 20 MG CAPSULE PO SCH (08:33)
[2022-08-27] MEDS: LISINOPRIL 20 MG TABLET PO SCH (08:37)
[2022-08-27 14:39] VITALS: BP 98/58
[2022-08-27] MEDS: LURASIDONE HCL 80 MG TABLET PO SCH (17:45)
[2022-08-27] MEDS: DIVALPROEX SODIUM 500 MG ER TABLET PO SCH (19:58)
[2022-08-27] MEDS: MIRTAZAPINE 15 MG TABLET PO SCH (19:58)
[2022-08-27] MEDS: ATORVASTATIN CALCIUM 20 MG TABLET PO SCH (19:59)
[2022-08-27 20:40] VITALS: BP 123/64
[2022-08-27 21:26] LABS: GLUCOMETER DEV NAME(LOC) 6N.2B; GLUCOSE,POINT OF CARE 124 MG/DL (70-110)
[2022-08-27 21:26] LABS: GLUCOMETER DEV NAME(LOC) 6N.2B; GLUCOSE,POINT OF CARE 128 MG/DL (70-110)
[2022-08-27] MEDS: INSULIN LISPRO 100 UNITS/ML SQ PRN (21:54)
[2022-08-27] MEDS: ZOLPIDEM TARTRATE 5 MG TABLET PO PRN (21:58)
[2022-08-28] MEDS: HYDROCODONE/ACETAMINOPHEN 5-325 MG TABLET PO PRN ×3 (00:42→20:26)
[2022-08-28 00:52] LABS: GLUCOMETER DEV NAME(LOC) 6N.2B; GLUCOSE,POINT OF CARE 141 MG/DL (70-110)
[2022-08-28 05:32] VITALS: BP 126/56
[2022-08-28] MEDS: AmLODIPine BESYLATE 5 MG TABLET PO SCH (08:18)
[2022-08-28] MEDS: FLUoxetine HCL 20 MG CAPSULE PO SCH (08:18)
[2022-08-28] MEDS: HEPARIN SODIUM,PORCINE 5,000 UNITS/ML VIAL SQ SCH ×2 (08:18→15:41)
[2022-08-28] MEDS: OMEGA-3/DHA/EPA/FISH OIL 1,000 MG CAPSULE PO SCH (08:18)
[2022-08-28] MEDS: LISINOPRIL 20 MG TABLET PO SCH (08:18)
[2022-08-28] MEDS: MetFORMIN HCL 500 MG ER TABLET PO SCH ×2 (08:18→17:29)
[2022-08-28] MEDS: TRIHEXYPHENIDYL HCL 5 MG TABLET PO SCH ×3 (08:18→19:52)
[2022-08-28] MEDS: PANTOPRAZOLE SODIUM 40 MG DR TABLET PO SCH (08:18)
[2022-08-28 14:41] LABS: GLUCOMETER DEV NAME(LOC) 6N.2B; GLUCOSE,POINT OF CARE 109 MG/DL (70-110)
[2022-08-28 16:09] VITALS: BP 107/70
[2022-08-28] MEDS: LURASIDONE HCL 80 MG TABLET PO SCH (17:29)
[2022-08-28 18:01] LABS: GLUCOMETER DEV NAME(LOC) 6N.2B; GLUCOSE,POINT OF CARE 118 MG/DL (70-110)
[2022-08-28] MEDS ORDERED: DIVA-80 PO (18:22)
[2022-08-28] MEDS ORDERED: LISI-894 PO (18:22)
[2022-08-28] MEDS ORDERED: FLUO20CA36 PO (18:22)
[2022-08-28] MEDS ORDERED: AMLO-257 PO (18:22)
[2022-08-28] MEDS ORDERED: ATOR20TA86 PO (18:22)
[2022-08-28] MEDS ORDERED: MIRT-89 PO (18:23)
[2022-08-28] MEDS ORDERED: OMEG-135 PO (18:23)
[2022-08-28] MEDS ORDERED: METF-81 PO (18:23)
[2022-08-28] MEDS ORDERED: LURA80TA2 PO (18:23)
[2022-08-28] MEDS ORDERED: AUD NEB (18:24)
[2022-08-28] MEDS ORDERED: TRIH5TAB4 PO (18:24)
[2022-08-28] MEDS ORDERED: PANT-31 PO (18:24)
[2022-08-28] MEDS ORDERED: INSU100V SQ (18:25)
[2022-08-28] MEDS ORDERED: BISA10SU11 PR (18:25)
[2022-08-28] MEDS ORDERED: ACET-2247 PO (18:25)
[2022-08-28 18:53] LABS: COVID AG,FIA SOURCE NASAL SWAB
[2022-08-28] MEDS: ATORVASTATIN CALCIUM 20 MG TABLET PO SCH (19:52)
[2022-08-28 20:00] VITALS: BP 99/69
[2022-08-28] MEDS: DIVALPROEX SODIUM 500 MG ER TABLET PO SCH (20:07)
[2022-08-28] MEDS: MIRTAZAPINE 15 MG TABLET PO SCH (20:07)
[2022-08-28 23:51] LABS: GLUCOMETER DEV NAME(LOC) 6N.2B; GLUCOSE,POINT OF CARE 124 MG/DL (70-110)
== END 2022-08-28 21:11 | DRG 750 ==
LOC: EMS 14:29 → 6S 08-18 08:21 → UNDOADMIN 08-18 09:49 → 6S 08-18 09:49
PROVIDERS: ADMIT Hospitalist; ATTEND Hospitalist
DX: F25.9 Schizoaffective disorder, unspecified (principal); E11.319 Type 2 diabetes mellitus with unspecified diabetic retinopathy without macular edema; F99 Mental disorder, not otherwise specified; E78.5 Hyperlipidemia, unspecified; H54.8 Legal blindness, as defined in USA; I10 Essential (primary) hypertension; K21.9 Gastro-esophageal reflux disease without esophagitis; J44.9 Chronic obstructive pulmonary disease, unspecified; F32.A Depression, unspecified; Z20.822 Contact with and (suspected) exposure to COVID-19; Z59.00 Homelessness unspecified; Z79.899 Other long term (current) drug therapy; Z82.49 Family history of ischemic heart disease and other diseases of the circulatory system; Z83.3 Family history of diabetes mellitus; Z87.891 Personal history of nicotine dependence; Z79.84 Long term (current) use of oral hypoglycemic drugs
CPT/HCPCS: 80053; 81001; 82962; 85025; 97116; 97161; 99285; J1644

== ENCOUNTER 2022-08-28 17:11 | Inpatient (IN) | payer MEDICAID ==
[~2022-08-28] VITALS: Ht 167.6 cm; Wt 86.2 kg
[2022-08-28] MEDS ORDERED: LISI-894 PO (18:22)
[2022-08-28] MEDS ORDERED: AMLO-257 PO (18:22)
[2022-08-28] MEDS ORDERED: ATOR20TA86 PO (18:22)
[2022-08-28] MEDS ORDERED: FLUO20CA36 PO (18:22)
[2022-08-28] MEDS ORDERED: DIVA-80 PO (18:22)
[2022-08-28] MEDS ORDERED: OMEG-135 PO (18:23)
[2022-08-28] MEDS ORDERED: METF-81 PO (18:23)
[2022-08-28] MEDS ORDERED: MIRT-89 PO (18:23)
[2022-08-28] MEDS ORDERED: LURA80TA2 PO (18:23)
[2022-08-28] MEDS ORDERED: PANT-31 PO (18:24)
[2022-08-28] MEDS ORDERED: TRIH5TAB4 PO (18:24)
[2022-08-28] MEDS ORDERED: AUD NEB (18:24)
[2022-08-28] MEDS ORDERED: INSU100V SQ (18:25)
[2022-08-28] MEDS ORDERED: BISA10SU11 PR (18:25)
[2022-08-28] MEDS ORDERED: ACET-2247 PO (18:25)
[2022-08-28] MEDS ORDERED: MAGNESIUM HYDROXIDE SUSPENSION 30 ML UDCUP PO PRN (19:15)
[2022-08-28] MEDS ORDERED: LORazepam 2 MG TABLET PO PRN (19:15)
[2022-08-28] MEDS ORDERED: ACETAMINOPHEN 325 MG TABLET PO PRN (19:15)
[2022-08-28] MEDS ORDERED: HydrOXYzine PAMOATE 50 MG CAPSULE PO PRN (19:15)
[2022-08-28] MEDS ORDERED: ZOLPIDEM TARTRATE 10 MG TABLET PO PRN (19:15)
[2022-08-28] MEDS ORDERED: MAG HYDROX/AL HYDROX/SIMETH ES 30 ML SUSPENSION UDCUP PO PRN (19:15)
[2022-08-28] MEDS ORDERED: OLANZapine 5 MG RAPDIS TABLET PO PRN (19:15)
[2022-08-28] MEDS ORDERED: PROMETHAZINE HCL 25 MG TABLET PO PRN (19:15)
[2022-08-28] MEDS ORDERED: GuaiFENesin/D-METHORPHAN [SUGAR-FREE] 200-20MG/10 ML SYRUP UDCUP PO PRN (19:15)
[2022-08-28] MEDS ORDERED: LOPERAMIDE HCL 2 MG CAPSULE PO PRN (19:15)
[2022-08-28] MEDS ORDERED: DIVALPROEX SODIUM 500 MG ER TABLET PO SCH (21:00)
[2022-08-28 21:55] VITALS: BP 128/70
[2022-08-28] MEDS ORDERED: GLUCAGON,HUMAN RECOMBINANT 1 MG VIAL IM PRN (22:30)
[2022-08-28] MEDS: OMEGA-3/DHA/EPA/FISH OIL 1,000 MG CAPSULE PO SCH (22:59)
[2022-08-28] MEDS: LURASIDONE HCL 80 MG TABLET PO SCH (22:59)
[2022-08-28] MEDS: MIRTAZAPINE 15 MG TABLET PO SCH (23:00)
[2022-08-28] MEDS: MELATONIN 5 MG TABLET PO SCH (23:00)
[2022-08-28 23:31] LABS: GLUCOMETER DEV NAME(LOC) BV2S.; GLUCOSE,POINT OF CARE 108 MG/DL (70-110)
[2022-08-29 00:17] VITALS: BP 116/67
[2022-08-29 05:56] LABS: GLUCOMETER DEV NAME(LOC) BV2S.; GLUCOSE,POINT OF CARE 104 MG/DL (70-110)
[2022-08-29] MEDS: MetFORMIN HCL 500 MG TABLET PO SCH (06:42)
[2022-08-29] MEDS ORDERED: MetFORMIN HCL 500 MG TABLET PO SCH (07:00)
[2022-08-29] MEDS ORDERED: AmLODIPine BESYLATE 5 MG TABLET PO SCH (09:00)
[2022-08-29] MEDS ORDERED: LISINOPRIL 20 MG TABLET PO SCH (09:00)
[2022-08-29] MEDS: FOLIC ACID 1 MG TABLET PO SCH (09:17)
[2022-08-29] MEDS: FLUoxetine HCL 20 MG CAPSULE PO SCH (09:17)
[2022-08-29] MEDS: PANTOPRAZOLE SODIUM 40 MG DR TABLET PO SCH (09:17)
[2022-08-29] MEDS: LISINOPRIL 10 MG TABLET PO SCH (09:18)
[2022-08-29] MEDS: MULTIVITAMINS WITH MINERALS, THERAPEUTIC TABLET PO SCH (09:18)
[2022-08-29] MEDS: TRIHEXYPHENIDYL HCL 2 MG TABLET PO SCH ×3 (09:19→16:34)
[2022-08-29] MEDS: THIAMINE 100 MG TABLET PO SCH ×2 (09:19→16:33)
[2022-08-29 09:30] VITALS: BP 125/72
[2022-08-29 11:36] LABS: GLUCOMETER DEV NAME(LOC) BV2S.; GLUCOSE,POINT OF CARE 108 MG/DL (70-110)
[2022-08-29 16:41] LABS: GLUCOMETER DEV NAME(LOC) BV2S.; GLUCOSE,POINT OF CARE 120 MG/DL (70-110)
[2022-08-29 18:37] VITALS: BP 125/72
[2022-08-29 20:13] VITALS: BP 125/61
[2022-08-29] MEDS: ATORVASTATIN CALCIUM 20 MG TABLET PO SCH (20:47)
[2022-08-29] MEDS: MIRTAZAPINE 15 MG TABLET PO SCH (20:47)
[2022-08-29] MEDS: MELATONIN 5 MG TABLET PO SCH (20:47)
[2022-08-29] MEDS: OMEGA-3/DHA/EPA/FISH OIL 1,000 MG CAPSULE PO SCH (20:47)
[2022-08-29] MEDS: LURASIDONE HCL 80 MG TABLET PO SCH (20:48)
[2022-08-29 21:05] LABS: GLUCOMETER DEV NAME(LOC) BV2S.; GLUCOSE,POINT OF CARE 145 MG/DL (70-110)
[2022-08-29] MEDS: INSULIN LISPRO 100 UNITS/ML SQ PRN (22:24)
[2022-08-30 06:16] LABS: GLUCOMETER DEV NAME(LOC) BV2S.; GLUCOSE,POINT OF CARE 124 MG/DL (70-110)
[2022-08-30] MEDS: MetFORMIN HCL 500 MG TABLET PO SCH (06:51)
[2022-08-30] MEDS: MULTIVITAMINS WITH MINERALS, THERAPEUTIC TABLET PO SCH (09:57)
[2022-08-30] MEDS: TRIHEXYPHENIDYL HCL 2 MG TABLET PO SCH ×3 (09:57→16:34)
[2022-08-30] MEDS: LISINOPRIL 10 MG TABLET PO SCH (09:57)
[2022-08-30] MEDS: FOLIC ACID 1 MG TABLET PO SCH (09:57)
[2022-08-30] MEDS: THIAMINE 100 MG TABLET PO SCH ×2 (09:57→16:34)
[2022-08-30] MEDS: PANTOPRAZOLE SODIUM 40 MG DR TABLET PO SCH (09:58)
[2022-08-30] MEDS: FLUoxetine HCL 20 MG CAPSULE PO SCH (09:58)
[2022-08-30 11:26] LABS: GLUCOMETER DEV NAME(LOC) BV2S.; GLUCOSE,POINT OF CARE 131 MG/DL (70-110)
[2022-08-30 16:51] LABS: GLUCOMETER DEV NAME(LOC) BV2S.; GLUCOSE,POINT OF CARE 128 MG/DL (70-110)
[2022-08-30] MEDS: OMEGA-3/DHA/EPA/FISH OIL 1,000 MG CAPSULE PO SCH (20:04)
[2022-08-30] MEDS: ATORVASTATIN CALCIUM 20 MG TABLET PO SCH (20:05)
[2022-08-30] MEDS: LURASIDONE HCL 80 MG TABLET PO SCH (20:05)
[2022-08-30] MEDS: MIRTAZAPINE 15 MG TABLET PO SCH (20:05)
[2022-08-30] MEDS: MELATONIN 5 MG TABLET PO SCH (20:06)
[2022-08-30 20:17] VITALS: BP 116/83
[2022-08-30 20:36] LABS: GLUCOMETER DEV NAME(LOC) BV2S.; GLUCOSE,POINT OF CARE 169 MG/DL (70-110)
[2022-08-30] MEDS: INSULIN LISPRO 100 UNITS/ML SQ PRN (21:23)
[2022-08-31 05:47] LABS: GLUCOMETER DEV NAME(LOC) BV2S.; GLUCOSE,POINT OF CARE 93 MG/DL (70-110)
[2022-08-31] MEDS: MetFORMIN HCL 500 MG TABLET PO SCH (06:37)
[2022-08-31] MEDS: MULTIVITAMINS WITH MINERALS, THERAPEUTIC TABLET PO SCH (08:27)
[2022-08-31] MEDS: THIAMINE 100 MG TABLET PO SCH ×2 (08:27→16:52)
[2022-08-31] MEDS: PANTOPRAZOLE SODIUM 40 MG DR TABLET PO SCH (08:27)
[2022-08-31] MEDS: FOLIC ACID 1 MG TABLET PO SCH (08:27)
[2022-08-31] MEDS: TRIHEXYPHENIDYL HCL 2 MG TABLET PO SCH ×3 (08:28→16:52)
[2022-08-31] MEDS: FLUoxetine HCL 20 MG CAPSULE PO SCH (08:28)
[2022-08-31] MEDS: LISINOPRIL 10 MG TABLET PO SCH (08:28)
[2022-08-31 09:07] VITALS: BP 121/71
[2022-08-31 13:06] LABS: GLUCOMETER DEV NAME(LOC) BV2X.2; GLUCOSE,POINT OF CARE 124 MG/DL (70-110)
[2022-08-31] MEDS: MUPIROCIN CALCIUM 2% 22 GM OINTMENT NASAL SCH (16:53)
[2022-08-31] MEDS: INSULIN LISPRO 100 UNITS/ML SQ PRN (17:03)
[2022-08-31 17:32] LABS: GLUCOMETER DEV NAME(LOC) BV2X.2; GLUCOSE,POINT OF CARE 153 MG/DL (70-110)
[2022-08-31 20:18] VITALS: BP 131/82
[2022-08-31] MEDS: MIRTAZAPINE 30 MG TABLET PO SCH (20:25)
[2022-08-31] MEDS: OMEGA-3/DHA/EPA/FISH OIL 1,000 MG CAPSULE PO SCH (20:25)
[2022-08-31] MEDS: ATORVASTATIN CALCIUM 20 MG TABLET PO SCH (20:25)
[2022-08-31] MEDS: LURASIDONE HCL 80 MG TABLET PO SCH (20:25)
[2022-08-31 20:26] LABS: GLUCOMETER DEV NAME(LOC) BV2S.; GLUCOSE,POINT OF CARE 113 MG/DL (70-110)
[2022-08-31] MEDS: MELATONIN 5 MG TABLET PO SCH (20:29)
[2022-09-01] MEDS: MetFORMIN HCL 500 MG TABLET PO SCH (06:39)
[2022-09-01 07:21] LABS: GLUCOMETER DEV NAME(LOC) BV2S.; GLUCOSE,POINT OF CARE 81 MG/DL (70-110)
[2022-09-01] MEDS: MULTIVITAMINS WITH MINERALS, THERAPEUTIC TABLET PO SCH (08:55)
[2022-09-01] MEDS: LISINOPRIL 10 MG TABLET PO SCH (08:55)
[2022-09-01] MEDS: FOLIC ACID 1 MG TABLET PO SCH (08:55)
[2022-09-01] MEDS: FLUoxetine HCL 20 MG CAPSULE PO SCH (08:55)
[2022-09-01] MEDS: PANTOPRAZOLE SODIUM 40 MG DR TABLET PO SCH (08:56)
[2022-09-01] MEDS: TRIHEXYPHENIDYL HCL 2 MG TABLET PO SCH ×3 (08:56→16:46)
[2022-09-01] MEDS: THIAMINE 100 MG TABLET PO SCH ×2 (08:56→16:46)
[2022-09-01] MEDS: MUPIROCIN CALCIUM 2% 22 GM OINTMENT NASAL SCH ×2 (08:57→16:48)
[2022-09-01 09:08] VITALS: BP 128/84
[2022-09-01 11:41] LABS: GLUCOMETER DEV NAME(LOC) BV2S.; GLUCOSE,POINT OF CARE 132 MG/DL (70-110)
[2022-09-01 16:46] LABS: GLUCOMETER DEV NAME(LOC) BV2S.; GLUCOSE,POINT OF CARE 155 MG/DL (70-110)
[2022-09-01] MEDS: INSULIN LISPRO 100 UNITS/ML SQ PRN (16:53)
[2022-09-01] MEDS: MELATONIN 5 MG TABLET PO SCH (20:06)
[2022-09-01] MEDS: MIRTAZAPINE 30 MG TABLET PO SCH (20:06)
[2022-09-01] MEDS: LURASIDONE HCL 80 MG TABLET PO SCH (20:07)
[2022-09-01] MEDS: OMEGA-3/DHA/EPA/FISH OIL 1,000 MG CAPSULE PO SCH (20:07)
[2022-09-01] MEDS: ATORVASTATIN CALCIUM 20 MG TABLET PO SCH (20:07)
[2022-09-02 05:01] LABS: GLUCOMETER DEV NAME(LOC) BV2S.; GLUCOSE,POINT OF CARE 119 MG/DL (70-110)
[2022-09-02] MEDS: MetFORMIN HCL 500 MG TABLET PO SCH (06:38)
[2022-09-02 07:46] LABS: GLUCOMETER DEV NAME(LOC) BV2S.; GLUCOSE,POINT OF CARE 82 MG/DL (70-110)
[2022-09-02 08:00] VITALS: BP 130/78
[2022-09-02] MEDS: FLUoxetine HCL 20 MG CAPSULE PO SCH (08:33)
[2022-09-02] MEDS: TRIHEXYPHENIDYL HCL 2 MG TABLET PO SCH ×3 (08:33→16:22)
[2022-09-02] MEDS: LISINOPRIL 10 MG TABLET PO SCH (08:33)
[2022-09-02] MEDS: PANTOPRAZOLE SODIUM 40 MG DR TABLET PO SCH (08:33)
[2022-09-02] MEDS: MULTIVITAMINS WITH MINERALS, THERAPEUTIC TABLET PO SCH (08:33)
[2022-09-02] MEDS: THIAMINE 100 MG TABLET PO SCH ×2 (08:33→16:22)
[2022-09-02] MEDS: FOLIC ACID 1 MG TABLET PO SCH (08:33)
[2022-09-02] MEDS: MUPIROCIN CALCIUM 2% 22 GM OINTMENT NASAL SCH ×2 (08:34→16:23)
[2022-09-02 11:41] LABS: GLUCOMETER DEV NAME(LOC) BV2X.2; GLUCOSE,POINT OF CARE 117 MG/DL (70-110)
[2022-09-02 16:10] VITALS: BP 132/80
[2022-09-02 16:51] LABS: GLUCOMETER DEV NAME(LOC) BV2X.2; GLUCOSE,POINT OF CARE 121 MG/DL (70-110)
[2022-09-02] MEDS: MIRTAZAPINE 30 MG TABLET PO SCH (20:58)
[2022-09-02] MEDS: MELATONIN 5 MG TABLET PO SCH (20:58)
[2022-09-02] MEDS: LURASIDONE HCL 80 MG TABLET PO SCH (20:59)
[2022-09-02] MEDS: OMEGA-3/DHA/EPA/FISH OIL 1,000 MG CAPSULE PO SCH (20:59)
[2022-09-02] MEDS: ATORVASTATIN CALCIUM 20 MG TABLET PO SCH (20:59)
[2022-09-03] VITALS: BP 121/62
[2022-09-03 06:36] LABS: GLUCOMETER DEV NAME(LOC) BV2S.; GLUCOSE,POINT OF CARE 79 MG/DL (70-110)
[2022-09-03] MEDS: MetFORMIN HCL 500 MG TABLET PO SCH (07:13)
[2022-09-03 08:10] VITALS: BP 110/55
[2022-09-03 09:13] VITALS: BP 128/57
[2022-09-03] MEDS: THIAMINE 100 MG TABLET PO SCH (09:38)
[2022-09-03] MEDS: TRIHEXYPHENIDYL HCL 2 MG TABLET PO SCH ×2 (09:38→13:28)
[2022-09-03] MEDS: FOLIC ACID 1 MG TABLET PO SCH (09:39)
[2022-09-03] MEDS: PANTOPRAZOLE SODIUM 40 MG DR TABLET PO SCH (09:39)
[2022-09-03] MEDS: MULTIVITAMINS WITH MINERALS, THERAPEUTIC TABLET PO SCH (09:39)
[2022-09-03] MEDS: FLUoxetine HCL 20 MG CAPSULE PO SCH (09:39)
[2022-09-03] MEDS: MUPIROCIN CALCIUM 2% 22 GM OINTMENT NASAL SCH (09:40)
[2022-09-03] MEDS: LISINOPRIL 10 MG TABLET PO SCH (09:40)
[2022-09-03 09:56] LABS: GLUCOMETER DEV NAME(LOC) POC.BV
[2022-09-03 17:11] LABS: GLUCOMETER DEV NAME(LOC) BV2S.; GLUCOSE,POINT OF CARE 121 MG/DL (70-110)
== END 2022-09-03 15:00 | disposition home or self-care (01) | DRG 750 ==
LOC: B2S 21:37
PROVIDERS: ADMIT Psychiatry & Neurology Psychiatry; ATTEND Psychiatry & Neurology Psychiatry
DX: F25.1 Schizoaffective disorder, depressive type (principal); U07.1 COVID-19; F33.2 Major depressive disorder, recurrent severe without psychotic features; E11.9 Type 2 diabetes mellitus without complications; E78.00 Pure hypercholesterolemia, unspecified; F15.90 Other stimulant use, unspecified, uncomplicated; F17.200 Nicotine dependence, unspecified, uncomplicated; H54.8 Legal blindness, as defined in USA; I10 Essential (primary) hypertension; J44.9 Chronic obstructive pulmonary disease, unspecified; K21.9 Gastro-esophageal reflux disease without esophagitis; Z59.9 Problem related to housing and economic circumstances, unspecified; Z55.9 Problems related to education and literacy, unspecified; Z63.9 Problem related to primary support group, unspecified; Z91.14 Patient's other noncompliance with medication regimen; Z65.3 Problems related to other legal circumstances
CPT/HCPCS: 80164; 82962; 87081; Q9967

== ENCOUNTER 2022-09-03 14:10 | Inpatient (IN) | payer MEDICAID ==
[~2022-09-03] VITALS: Ht 170.2 cm; Wt 100.0 kg
[~2022-09-03 14:10] MED LIST changes: +ACET-2247 PO; -AMLO5TAB66 PO; -ATOR20TA65 PO; +AUD NEB; +BISA10SU11 PR; +FLUO20CA36 PO; +INSU100V SQ; -MELA5TAB40 PO; -METF-1211 PO; +METF-81 PO; -NALT50TA PO; +PANT-31 PO; -TRIH5TAB3 PO; +TRIH5TAB4 PO
[2022-09-03 16:18] LABS: COVID AG,FIA SOURCE NASAL SWAB
[2022-09-03] MEDS ORDERED: MAGNESIUM HYDROXIDE SUSPENSION 30 ML UDCUP PO PRN (17:00)
[2022-09-03] MEDS ORDERED: ZOLPIDEM TARTRATE 5 MG TABLET PO PRN (17:00)
[2022-09-03] MEDS ORDERED: ONDANSETRON HCL 4 MG/2 ML VIAL IVP PRN (17:00)
[2022-09-03] MEDS ORDERED: BISACODYL 10 MG RECTAL RECTAL SUPPOSITORY PR PRN (17:00)
[2022-09-03] MEDS ORDERED: ACETAMINOPHEN 325 MG TABLET PO PRN (17:00)
[2022-09-03] MEDS: LURASIDONE HCL 80 MG TABLET PO SCH ×2 (17:30→21:14)
[2022-09-03] MEDS: MetFORMIN HCL 500 MG ER TABLET PO SCH ×2 (17:30→21:13)
[2022-09-03 19:11] LABS: GLUCOMETER DEV NAME(LOC) ERT.5; GLUCOSE,POINT OF CARE 156 MG/DL (70-110)
[2022-09-03] MEDS ORDERED: -PHARMACY VACCINE NOTE- MISC ONE (19:15)
[2022-09-03] MEDS ORDERED: INFLUENZA VIRUS VACCINE QVS 2022-23 (6MO+)/PF 60 MCG/0.5 ML SYRINGE IM. ONE (19:15)
[2022-09-03 21:00] VITALS: BP 136/78
[2022-09-03] MEDS ORDERED: DIVALPROEX SODIUM 500 MG ER TABLET PO SCH (21:00)
[2022-09-03] MEDS ORDERED: MIRTAZAPINE 15 MG TABLET PO SCH (21:00)
[2022-09-03] MEDS: DOCUSATE SODIUM 100 MG CAPSULE PO SCH (21:00)
[2022-09-03] MEDS ORDERED: ATORVASTATIN CALCIUM 20 MG TABLET PO SCH (21:00)
[2022-09-03] MEDS: ETHYL ALCOHOL 62% ANTISEPTIC NASAL SANITIZER 0.6 ML AMPUL NASAL SCH (21:14)
[2022-09-03] MEDS: HEPARIN SODIUM,PORCINE 5,000 UNITS/ML VIAL SQ SCH (23:23)
[2022-09-04 04:07] VITALS: BP 123/62
[2022-09-04 07:05] VITALS: BP_SYST 103; BP_SYST 132; BP_DIAS 65; BP_DIAS 72
[2022-09-04] MEDS: DOCUSATE SODIUM 100 MG CAPSULE PO SCH (09:00)
[2022-09-04] MEDS ORDERED: FLUoxetine HCL 20 MG CAPSULE PO SCH (09:00)
[2022-09-04] MEDS ORDERED: AmLODIPine BESYLATE 5 MG TABLET PO SCH (09:00)
[2022-09-04] MEDS ORDERED: LISINOPRIL 20 MG TABLET PO SCH (09:00)
[2022-09-04] MEDS ORDERED: PANTOPRAZOLE SODIUM 40 MG DR TABLET PO SCH ×2 (09:00)
[2022-09-04] MEDS: ETHYL ALCOHOL 62% ANTISEPTIC NASAL SANITIZER 0.6 ML AMPUL NASAL SCH (09:48)
[2022-09-04] MEDS: MetFORMIN HCL 500 MG ER TABLET PO SCH ×2 (09:49→17:46)
[2022-09-04] MEDS: HEPARIN SODIUM,PORCINE 5,000 UNITS/ML VIAL SQ SCH ×2 (09:49→17:46)
[2022-09-04 15:20] VITALS: BP 136/62
[2022-09-04] MEDS: LURASIDONE HCL 80 MG TABLET PO SCH (17:46)
[2022-09-04 20:12] VITALS: BP 133/75
== END 2022-09-04 20:10 | DRG 137 ==
LOC: EMS 14:21 → 6N 17:22
PROVIDERS: ADMIT Internal Medicine; ATTEND Internal Medicine
DX: U07.1 COVID-19 (principal); E11.319 Type 2 diabetes mellitus with unspecified diabetic retinopathy without macular edema; E66.9 Obesity, unspecified; E78.5 Hyperlipidemia, unspecified; F25.9 Schizoaffective disorder, unspecified; H54.8 Legal blindness, as defined in USA; I10 Essential (primary) hypertension; F17.210 Nicotine dependence, cigarettes, uncomplicated; J45.909 Unspecified asthma, uncomplicated; Z59.00 Homelessness unspecified; Z79.4 Long term (current) use of insulin; Z79.84 Long term (current) use of oral hypoglycemic drugs; Z79.899 Other long term (current) drug therapy; Z94.7 Corneal transplant status; Z68.34 Body mass index [BMI] 34.0-34.9, adult
CPT/HCPCS: 82962; 99285; J1644

== ENCOUNTER 2022-09-04 14:18 | Inpatient (IN) | payer MEDICAID ==
[~2022-09-04] VITALS: Ht 167.6 cm; Wt 78.7 kg
[2022-09-04] MEDS ORDERED: LOPERAMIDE HCL 2 MG CAPSULE PO PRN (20:45)
[2022-09-04] MEDS ORDERED: OLANZapine 5 MG RAPDIS TABLET PO PRN (20:45)
[2022-09-04] MEDS ORDERED: LORazepam 2 MG TABLET PO PRN (20:45)
[2022-09-04] MEDS ORDERED: MAG HYDROX/AL HYDROX/SIMETH ES 30 ML SUSPENSION UDCUP PO PRN (20:45)
[2022-09-04] MEDS ORDERED: PROMETHAZINE HCL 25 MG TABLET PO PRN (20:45)
[2022-09-04] MEDS ORDERED: HydrOXYzine PAMOATE 50 MG CAPSULE PO PRN (20:45)
[2022-09-04] MEDS ORDERED: ZOLPIDEM TARTRATE 10 MG TABLET PO PRN (20:45)
[2022-09-04] MEDS ORDERED: GuaiFENesin/D-METHORPHAN [SUGAR-FREE] 200-20MG/10 ML SYRUP UDCUP PO PRN (20:45)
[2022-09-04] MEDS ORDERED: MAGNESIUM HYDROXIDE SUSPENSION 30 ML UDCUP PO PRN (20:45)
[2022-09-04] MEDS: MIRTAZAPINE 15 MG TABLET PO SCH (21:52)
[2022-09-04] MEDS: MELATONIN 5 MG TABLET PO SCH (21:52)
[2022-09-04] MEDS: DIVALPROEX SODIUM 500 MG ER TABLET PO SCH (21:52)
[2022-09-04 22:11] LABS: GLUCOMETER DEV NAME(LOC) BV2S.; GLUCOSE,POINT OF CARE 97 MG/DL (70-110)
[2022-09-04] MEDS ORDERED: INFLUENZA VIRUS VACCINE QVS 2022-23 (6MO+)/PF 60 MCG/0.5 ML SYRINGE IM. ONE (22:30)
[2022-09-04 22:49] VITALS: BP 112/67
[2022-09-05 08:03] VITALS: BP 106/63
[2022-09-05] MEDS: TRIHEXYPHENIDYL HCL 5 MG TABLET PO SCH ×3 (08:43→16:49)
[2022-09-05] MEDS: NALTREXONE HCL 50 MG TABLET PO SCH (08:44)
[2022-09-05] MEDS: FOLIC ACID 1 MG TABLET PO SCH (08:44)
[2022-09-05] MEDS: FLUoxetine HCL 20 MG CAPSULE PO SCH (08:44)
[2022-09-05] MEDS: THIAMINE 100 MG TABLET PO SCH ×2 (08:44→16:49)
[2022-09-05] MEDS: OMEGA-3/DHA/EPA/FISH OIL 1,000 MG CAPSULE PO SCH (08:44)
[2022-09-05] MEDS: MULTIVITAMINS WITH MINERALS, THERAPEUTIC TABLET PO SCH (08:49)
[2022-09-05] MEDS: LISINOPRIL 10 MG TABLET PO SCH (10:15)
[2022-09-05] MEDS: AmLODIPine BESYLATE 5 MG TABLET PO SCH (10:15)
[2022-09-05] MEDS: LURASIDONE HCL 80 MG TABLET PO SCH (16:50)
[2022-09-05] MEDS ORDERED: MetFORMIN HCL 500 MG TABLET PO SCH (17:00)
[2022-09-05 20:25] VITALS: BP 124/76
[2022-09-05] MEDS: MIRTAZAPINE 15 MG TABLET PO SCH (20:41)
[2022-09-05] MEDS: DIVALPROEX SODIUM 500 MG ER TABLET PO SCH (20:41)
[2022-09-05] MEDS: MELATONIN 5 MG TABLET PO SCH (20:42)
[2022-09-05] MEDS ORDERED: INSULIN LISPRO 100 UNITS/ML SQ PRN (21:45)
[2022-09-05] MEDS ORDERED: GLUCAGON,HUMAN RECOMBINANT 1 MG VIAL IM PRN (21:45)
[2022-09-06] MEDS: ACETAMINOPHEN 325 MG TABLET PO PRN ×2 (03:25→13:11)
[2022-09-06 03:27] VITALS: BP 134/80
[2022-09-06 06:31] LABS: GLUCOMETER DEV NAME(LOC) BV2S.; GLUCOSE,POINT OF CARE 101 MG/DL (70-110)
[2022-09-06] MEDS: MetFORMIN HCL 500 MG TABLET PO SCH (06:55)
[2022-09-06] MEDS: MULTIVITAMINS WITH MINERALS, THERAPEUTIC TABLET PO SCH (09:05)
[2022-09-06] MEDS: OMEGA-3/DHA/EPA/FISH OIL 1,000 MG CAPSULE PO SCH (09:05)
[2022-09-06] MEDS: FLUoxetine HCL 20 MG CAPSULE PO SCH (09:05)
[2022-09-06] MEDS: FOLIC ACID 1 MG TABLET PO SCH (09:05)
[2022-09-06] MEDS: TRIHEXYPHENIDYL HCL 5 MG TABLET PO SCH ×3 (09:05→16:43)
[2022-09-06] MEDS: AmLODIPine BESYLATE 5 MG TABLET PO SCH (09:06)
[2022-09-06] MEDS: THIAMINE 100 MG TABLET PO SCH ×2 (09:06→16:43)
[2022-09-06] MEDS: NALTREXONE HCL 50 MG TABLET PO SCH (09:06)
[2022-09-06] MEDS: LISINOPRIL 10 MG TABLET PO SCH (09:06)
[2022-09-06 10:02] VITALS: BP 134/60
[2022-09-06 11:21] LABS: GLUCOMETER DEV NAME(LOC) BV2S.; GLUCOSE,POINT OF CARE 101 MG/DL (70-110)
[2022-09-06] MEDS ORDERED: FLUO20CA36 PO (15:25)
[2022-09-06] MEDS ORDERED: LURA80TA2 PO (15:25)
[2022-09-06] MEDS ORDERED: TRIH5TAB3 PO (15:25)
[2022-09-06] MEDS ORDERED: DIVA-80 PO (15:25)
[2022-09-06] MEDS ORDERED: OMEG-135 PO (15:25)
[2022-09-06] MEDS ORDERED: MIRT-89 PO (15:25)
[2022-09-06] MEDS ORDERED: MELA5TAB40 PO (15:25)
[2022-09-06] MEDS: LURASIDONE HCL 80 MG TABLET PO SCH (16:43)
[2022-09-06 16:46] LABS: GLUCOMETER DEV NAME(LOC) BV2S.; GLUCOSE,POINT OF CARE 137 MG/DL (70-110)
[2022-09-06 20:00] VITALS: BP 150/78
[2022-09-06] MEDS: MELATONIN 5 MG TABLET PO SCH (20:15)
[2022-09-06] MEDS: MIRTAZAPINE 15 MG TABLET PO SCH (20:15)
[2022-09-06] MEDS: DIVALPROEX SODIUM 500 MG ER TABLET PO SCH (20:15)
[2022-09-06 20:36] LABS: GLUCOMETER DEV NAME(LOC) BV2S.; GLUCOSE,POINT OF CARE 131 MG/DL (70-110)
[2022-09-06] MEDS ORDERED: ATORVASTATIN CALCIUM 10 MG TABLET PO SCH (21:00)
[2022-09-07 01:59] VITALS: BP 136/78
[2022-09-07] MEDS: ACETAMINOPHEN 325 MG TABLET PO PRN (02:06)
[2022-09-07 06:27] LABS: GLUCOMETER DEV NAME(LOC) BV2S.; GLUCOSE,POINT OF CARE 93 MG/DL (70-110)
[2022-09-07] MEDS: MetFORMIN HCL 500 MG TABLET PO SCH (06:48)
[2022-09-07 08:19] VITALS: BP 149/82
[2022-09-07] MEDS: AmLODIPine BESYLATE 5 MG TABLET PO SCH (08:50)
[2022-09-07] MEDS: LISINOPRIL 10 MG TABLET PO SCH (08:50)
[2022-09-07] MEDS: FLUoxetine HCL 20 MG CAPSULE PO SCH (08:50)
[2022-09-07] MEDS: NALTREXONE HCL 50 MG TABLET PO SCH (08:50)
[2022-09-07] MEDS: THIAMINE 100 MG TABLET PO SCH (08:50)
[2022-09-07] MEDS: OMEGA-3/DHA/EPA/FISH OIL 1,000 MG CAPSULE PO SCH (08:50)
[2022-09-07] MEDS: MULTIVITAMINS WITH MINERALS, THERAPEUTIC TABLET PO SCH (08:50)
[2022-09-07] MEDS: FOLIC ACID 1 MG TABLET PO SCH (08:50)
[2022-09-07] MEDS: TRIHEXYPHENIDYL HCL 5 MG TABLET PO SCH ×2 (08:50→12:27)
[2022-09-07] MEDS ORDERED: LISI-893 PO (10:52)
== END 2022-09-07 13:00 | disposition home or self-care (01) | DRG 750 ==
LOC: B2S 20:42
PROVIDERS: ADMIT Psychiatry & Neurology Psychiatry; ATTEND Psychiatry & Neurology Psychiatry
DX: F25.9 Schizoaffective disorder, unspecified (principal); E11.319 Type 2 diabetes mellitus with unspecified diabetic retinopathy without macular edema; E66.9 Obesity, unspecified; E78.5 Hyperlipidemia, unspecified; F14.90 Cocaine use, unspecified, uncomplicated; I10 Essential (primary) hypertension; F32.A Depression, unspecified; K21.9 Gastro-esophageal reflux disease without esophagitis; Z86.16 Personal history of COVID-19; Z79.899 Other long term (current) drug therapy; Z98.49 Cataract extraction status, unspecified eye
CPT/HCPCS: 80164; 82962; 87081; Q9967

== ENCOUNTER 2023-07-21 20:48 | Emergency (ER) | payer MEDICAID ==
[~2023-07-21] VITALS: Ht 167.6 cm; Wt 122.0 kg
[~2023-07-21 20:48] MED LIST changes: -ACET-2247 PO; +ATOR20TA PO; -ATOR20TA86 PO; -AUD NEB; -BISA10SU11 PR; -DIVA-80 PO; +DIVA500T53 PO; -INSU100V SQ; +LISI-893 PO; -LISI-894 PO; +MELA5TAB40 PO; -PANT-31 PO; +TRIH5TAB3 PO; -TRIH5TAB4 PO
[2023-07-21 21:42] LABS: COVID AG,FIA SOURCE NASAL SWAB
[2023-07-21 21:44] LABS: BASOPHILS % (AUTO) 0.1 % (0.0-2.0); EOSINOPHILS % (AUTO) 0 % (1.0-6.0); HEMATOCRIT 35.1 % (36-46); HEMOGLOBIN 11.9 g/dL (12.0-16.0); LYMPHOCYTES # (AUTO) 0.9 K/uL (1.0-4.8); LYMPHOCYTES % (AUTO) 11.7 % (22.0-44.0); MEAN CORPUSCULAR HEMOGLOBIN 33.4 pg (26.0-34.0); MEAN CORPUSCULAR VOLUME 98 fL (80-100); MONOCYTES # (AUTO) 0.5 K/uL (0.1-1.0); MONOCYTES % (AUTO) 6.2 % (2.0-9.0); NEUTROPHILS # (AUTO) 6.3 K/uL (1.8-7.7); PLATELET COUNT (AUTO) 228 K/uL (150-450); RED BLOOD CELL COUNT(AUTO) 3.57 MIL/uL (4.00-5.20); RED CELL DISTRIBUTION WIDTH 12.8 % (11.5-14.5); WHITE BLOOD COUNT (AUTO) 7.7 K/uL (4.5-11.0)
[2023-07-21 21:57] LABS: ANION GAP 1 mmol/L (8-16); CALCIUM, TOTAL 9.7 mg/dL (8.8-10.5); CARBON DIOXIDE 31 mmol/L (22-29); CHLORIDE 105 mmol/L (98-107); CREATININE 1.08 mg/dL (0.60-1.30); GLOMERULAR FILTR. RATE CALC 52 mL/min (>60); GLUCOSE,RANDOM 157 mg/dL (70-110); POTASSIUM 4.3 mmol/L (3.5-5.1); SODIUM SERUM 137 mmol/L (136-145); UREA NITROGEN, BLOOD 21 mg/dL (7-18)
[2023-07-21 22:03] LABS: SARS-COV2 (COVID) ANTIGEN,FIA Negative (Negative)
[2023-07-21 22:04] LABS: AMMONIA 13 umol/L (11-32); LACTIC ACID 1.1 mmol/L (0.4-2.0)
[2023-07-21 22:11] LABS: ALANINE AMINOTRANSFERASE 31 U/L (12-78); ALBUMIN 3.6 g/dL (3.4-5.0); ALKALINE PHOSPHATASE 116 U/L (46-116); ASPARTATE AMINOTRANSFERASE 12 U/L (15-37); BILIRUBIN,TOTAL 0.3 mg/dL (0.1-1.0); CREATINE KINASE, TOTAL ONLY 46 U/L (26-192); TOTAL PROTEIN, SERUM 7.6 g/dL (6.4-8.2); TROPONIN I-HIGH SENSITIVITY Less Than 4 ng/L (<51)
[2023-07-21 22:13] LABS: B-TYPE NATRIURETIC PEPTIDE < 5 pg/mL (0-100)
[2023-07-21] MEDS ORDERED: SODIUM CHLORIDE 0.9% 1,000 ML IV ONE (22:15)
[2023-07-21 22:31] LABS: ALCOHOL, BLOOD (SERUM) < 3 mg/dL (0-10)
[2023-07-21 23:21] LABS: APPEARANCE,URINE CLEAR (CLEAR); BILIRUBIN,URINE NEGATIVE (NEGATIVE); COLOR,URINE YELLOW (YELLOW); GLUCOSE, URINE (UA) NEGATIVE (NEGATIVE); KETONES,URINE NEGATIVE (NEGATIVE); LEUKOCYTE ESTERASE ,URINE TRACE (NEGATIVE); NITRATE,URINE NEGATIVE (NEGATIVE); OCCULT BLOOD,URINE NEGATIVE (NEGATIVE); PH,URINE 6.5 (5.0-8.0); PH,URINE DRUG SCREEN 6.5 (5.0-8.0); PROTEIN,URINE TRACE mg/dL (NEGATIVE)
[2023-07-21 23:28] LABS: ALCOHOL, URINE DRUG SCREEN NEGATIVE (NEGATIVE); AMPHET/METH SCREEN,URINE NEGATIVE (NEGATIVE); BARBITURATE SCREEN, URINE NEGATIVE (NEGATIVE); BENZODIAZEPINES SCREEN,URINE NEGATIVE (NEGATIVE); CANNABINOID SCREEN,URINE NEGATIVE (NEGATIVE); COCAINE SCREEN,URINE NEGATIVE (NEGATIVE); METHADONE SCREEN, URINE NEGATIVE (NEGATIVE); OPIATE SCREEN,URINE NEGATIVE (NEGATIVE); PHENCYCLIDINE SCREEN,URINE NEGATIVE (NEGATIVE)
[2023-07-21 23:38] LABS: BACTERIA,URINE None Seen /HPF (None Seen); RBC,URINE None Seen /HPF (0-2); SQUAMOUS EPITHELIAL CELL,UR Few /LPF (None Seen); WBC,URINE 0-2 /HPF (0-5)
[2023-07-22 00:13] VITALS: BP 130/72; PULSE 95; RESP 20; TEMP 98.4
== END 2023-07-22 00:47 | disposition home or self-care (01) ==
LOC: EMS 21:06
DX: E86.0 Dehydration (principal); F20.0 Paranoid schizophrenia; F41.9 Anxiety disorder, unspecified; M19.90 Unspecified osteoarthritis, unspecified site; J45.909 Unspecified asthma, uncomplicated; F31.9 Bipolar disorder, unspecified; E11.9 Type 2 diabetes mellitus without complications; E78.00 Pure hypercholesterolemia, unspecified; F17.210 Nicotine dependence, cigarettes, uncomplicated; H54.8 Legal blindness, as defined in USA; Z98.890 Other specified postprocedural states; Z20.822 Contact with and (suspected) exposure to COVID-19
CPT/HCPCS: 99285; 96360; 70450; 71045; 87426; 80053; 80164; 81001; 82140; 82550; 83605; 83880; 84484; 85025; 36415; 93005; 80307; J7030; G0480

== ENCOUNTER → 2023-09-19 15:58 | Inpatient (IN) | payer MEDICAID, OTHER ==
[2022-09-07 22:33] LABS: BASOPHILS % (AUTO) 0.2 % (0.0-2.0); EOSINOPHILS % (AUTO) 0.3 % (1.0-6.0); HEMOGLOBIN 13.7 g/dL (12.0-16.0); LYMPHOCYTES % (AUTO) 13.2 % (22.0-44.0); MEAN CORPUSCULAR HEMOGLOBIN 32.8 pg (26.0-34.0); MEAN CORPUSCULAR HGB CONC 34.3 G/dL (31.0-37.0); MEAN CORPUSCULAR VOLUME 96 fL (80-100); MONOCYTES # (AUTO) 0.7 K/uL (0.1-1.0); MONOCYTES % (AUTO) 8.9 % (2.0-9.0); NEUTROPHILS # (AUTO) 5.7 K/uL (1.8-7.7); NEUTROPHILS % (AUTO) 77.4 % (40.0-70.0); PLATELET COUNT (AUTO) 211 K/uL (150-450); RED BLOOD CELL COUNT(AUTO) 4.17 MIL/uL (4.00-5.20); RED CELL DISTRIBUTION WIDTH 13.1 % (11.5-14.5); WHITE BLOOD COUNT (AUTO) 7.4 K/uL (4.5-11.0)
[2022-09-07 22:40] LABS: ANION GAP 9 mmol/L (8-16); CALCIUM, TOTAL 9.1 mg/dL (8.8-10.5); CARBON DIOXIDE 26 mmol/L (22-29); CHLORIDE 91 mmol/L (98-107); CREATININE 0.75 mg/dL (0.60-1.30); GLUCOSE,RANDOM 113 mg/dL (70-110); POTASSIUM 4.8 mmol/L (3.5-5.1); SODIUM SERUM 126 mmol/L (136-145); UREA NITROGEN, BLOOD 18 mg/dL (7-18)
[2022-09-07 22:42] LABS: GLOMERULAR FILTR. RATE CALC > 60 mL/min (>60)
[2022-09-07 22:48] LABS: ALANINE AMINOTRANSFERASE 41 U/L (12-78); ALBUMIN 3.6 g/dL (3.4-5.0); ALKALINE PHOSPHATASE 74 U/L (46-116); ASPARTATE AMINOTRANSFERASE 21 U/L (15-37); BILIRUBIN,TOTAL 0.4 mg/dL (0.1-1.0); TOTAL PROTEIN, SERUM 7.1 g/dL (6.4-8.2)
[2022-09-07 23:02] LABS: ALCOHOL, BLOOD (SERUM) < 3 mg/dL (0-10)
[2022-09-08 02:36] LABS: GLUCOMETER DEV NAME(LOC) ERT.5; GLUCOSE,POINT OF CARE 93 MG/DL (70-110)
[2022-09-08 06:34] LABS: APPEARANCE,URINE CLEAR (CLEAR); BILIRUBIN,URINE NEGATIVE (NEGATIVE); COLOR,URINE LIGHT YELLOW (YELLOW); GLUCOSE, URINE (UA) NEGATIVE (NEGATIVE); KETONES,URINE NEGATIVE (NEGATIVE); LEUKOCYTE ESTERASE ,URINE NEGATIVE (NEGATIVE); NITRATE,URINE NEGATIVE (NEGATIVE); OCCULT BLOOD,URINE NEGATIVE (NEGATIVE); PH,URINE 6.5 (5.0-8.0); PROTEIN,URINE NEGATIVE (NEGATIVE); UROBILINOGEN,URINE <=1.0 mg/dL (<=1.0)
[2022-09-08 06:36] LABS: PH,URINE DRUG SCREEN 6.5 (5.0-8.0)
[2022-09-08 06:41] LABS: ALCOHOL, URINE DRUG SCREEN NEGATIVE (NEGATIVE); AMPHET/METH SCREEN,URINE NEGATIVE (NEGATIVE); BARBITURATE SCREEN, URINE NEGATIVE (NEGATIVE); BENZODIAZEPINES SCREEN,URINE NEGATIVE (NEGATIVE); CANNABINOID SCREEN,URINE NEGATIVE (NEGATIVE); COCAINE SCREEN,URINE NEGATIVE (NEGATIVE); METHADONE SCREEN, URINE NEGATIVE (NEGATIVE); OPIATE SCREEN,URINE NEGATIVE (NEGATIVE)
[2022-09-08 06:43] LABS: PHENCYCLIDINE SCREEN,URINE NEGATIVE (NEGATIVE)
[2022-09-08 10:16] LABS: GLUCOMETER DEV NAME(LOC) ERT.5; GLUCOSE,POINT OF CARE 77 MG/DL (70-110)
[2022-09-08 13:20] VITALS: BP 107/71; PULSE 96; RESP 18; TEMP 97.4
[2022-09-08 13:51] LABS: GLUCOMETER DEV NAME(LOC) BV2S.; GLUCOSE,POINT OF CARE 157 MG/DL (70-110)
[2022-09-08 16:17] VITALS: TEMP 98
[2022-09-08 20:01] VITALS: TEMP 98
[2022-09-08 20:02] VITALS: BP 134/70; PULSE 78; RESP 16; TEMP 98; O2SAT 98
[2022-09-08] MEDS: ATORVASTATIN CALCIUM 20 MG TABLET PO SCH (20:05)
[2022-09-09 00:19] VITALS: TEMP 98.1
[2022-09-09 05:49] VITALS: TEMP 98.1
[2022-09-09] MEDS: MetFORMIN HCL 500 MG TABLET PO SCH (06:19)
[2022-09-09 06:31] LABS: GLUCOMETER DEV NAME(LOC) BV2S.; GLUCOSE,POINT OF CARE 155 MG/DL (70-110)
[2022-09-09] MEDS: LISINOPRIL 10 MG TABLET PO SCH (09:44)
[2022-09-09] MEDS: AmLODIPine BESYLATE 5 MG TABLET PO SCH (09:44)
[2022-09-09 09:54] VITALS: BP 147/67; PULSE 85; RESP 18; TEMP 98.3; O2SAT 100
[2022-09-09 15:03] VITALS: TEMP 97.6
[2022-09-09 16:27] VITALS: TEMP 97.6
[2022-09-09 20:46] VITALS: BP 150/78; PULSE 96; RESP 19; TEMP 98.1; O2SAT 95
[2022-09-09] MEDS: MIRTAZAPINE 15 MG TABLET PO SCH (21:07)
[2022-09-09] MEDS: DIVALPROEX SODIUM 500 MG DR TABLET PO SCH (21:07)
[2022-09-09] MEDS: MELATONIN 5 MG TABLET PO SCH (21:07)
[2022-09-09] MEDS: ATORVASTATIN CALCIUM 20 MG TABLET PO SCH (21:07)
[2022-09-10 00:27] VITALS: TEMP 98.1
[2022-09-10 04:17] VITALS: TEMP 97.8
[2022-09-10] MEDS: MetFORMIN HCL 500 MG TABLET PO SCH (06:34)
[2022-09-10] MEDS: AmLODIPine BESYLATE 5 MG TABLET PO SCH (08:44)
[2022-09-10] MEDS: LISINOPRIL 10 MG TABLET PO SCH (08:44)
[2022-09-10] MEDS: OMEGA-3/DHA/EPA/FISH OIL 1,000 MG CAPSULE PO SCH (08:44)
[2022-09-10] MEDS: FLUoxetine HCL 20 MG CAPSULE PO SCH (08:44)
[2022-09-10] MEDS: TRIHEXYPHENIDYL HCL 5 MG TABLET PO SCH ×3 (08:44→17:02)
[2022-09-10 08:48] VITALS: BP 126/52; PULSE 72; RESP 18; TEMP 97.5; O2SAT 94
[2022-09-10 11:21] LABS: GLUCOMETER DEV NAME(LOC) BV2S.; GLUCOSE,POINT OF CARE 106 MG/DL (70-110)
[2022-09-10 12:03] VITALS: TEMP 97.9
[2022-09-10 16:26] VITALS: TEMP 97.8
[2022-09-10 16:36] LABS: GLUCOMETER DEV NAME(LOC) BV2S.; GLUCOSE,POINT OF CARE 132 MG/DL (70-110)
[2022-09-10] MEDS: LURASIDONE HCL 80 MG TABLET PO SCH (17:02)
[2022-09-10 20:03] VITALS: BP 108/60; PULSE 80; RESP 17; TEMP 97.5; O2SAT 98
[2022-09-10] MEDS: MIRTAZAPINE 15 MG TABLET PO SCH (20:09)
[2022-09-10] MEDS: ATORVASTATIN CALCIUM 20 MG TABLET PO SCH (20:09)
[2022-09-10] MEDS: DIVALPROEX SODIUM 500 MG DR TABLET PO SCH (20:09)
[2022-09-10] MEDS: MELATONIN 5 MG TABLET PO SCH (20:09)
[2022-09-11] VITALS (8 sets, daily range): BP systolic 12–116; BP diastolic 66–86; PULSE 77–82; RESP 16–18; TEMP 97.3–98.4; O2SAT 99
[2022-09-11 06:16] LABS: GLUCOMETER DEV NAME(LOC) BV2S.; GLUCOSE,POINT OF CARE 91 MG/DL (70-110)
[2022-09-11] MEDS: MetFORMIN HCL 500 MG TABLET PO SCH (06:37)
[2022-09-11] MEDS: LISINOPRIL 10 MG TABLET PO SCH (08:53)
[2022-09-11] MEDS: OMEGA-3/DHA/EPA/FISH OIL 1,000 MG CAPSULE PO SCH (08:53)
[2022-09-11] MEDS: TRIHEXYPHENIDYL HCL 5 MG TABLET PO SCH ×3 (08:54→16:43)
[2022-09-11] MEDS: AmLODIPine BESYLATE 5 MG TABLET PO SCH (08:54)
[2022-09-11] MEDS: FLUoxetine HCL 20 MG CAPSULE PO SCH (08:54)
[2022-09-11] MEDS: LURASIDONE HCL 80 MG TABLET PO SCH (16:43)
[2022-09-11] MEDS: DIVALPROEX SODIUM 500 MG DR TABLET PO SCH (20:35)
[2022-09-11] MEDS: MELATONIN 5 MG TABLET PO SCH (20:36)
[2022-09-11] MEDS: ATORVASTATIN CALCIUM 20 MG TABLET PO SCH (20:36)
[2022-09-11] MEDS: MIRTAZAPINE 15 MG TABLET PO SCH (20:36)
[2022-09-12] VITALS (8 sets, daily range): BP systolic 134–142; BP diastolic 64–72; PULSE 70–72; RESP 17–18; TEMP 97.5–98.4; O2SAT 99
[2022-09-12 06:51] LABS: GLUCOMETER DEV NAME(LOC) BV2S.; GLUCOSE,POINT OF CARE 86 MG/DL (70-110)
[2022-09-12] MEDS: MetFORMIN HCL 500 MG TABLET PO SCH (07:01)
[2022-09-12] MEDS: LISINOPRIL 10 MG TABLET PO SCH (09:31)
[2022-09-12] MEDS: TRIHEXYPHENIDYL HCL 5 MG TABLET PO SCH ×3 (09:31→16:52)
[2022-09-12] MEDS: FLUoxetine HCL 20 MG CAPSULE PO SCH (09:32)
[2022-09-12] MEDS: AmLODIPine BESYLATE 5 MG TABLET PO SCH (09:32)
[2022-09-12] MEDS: OMEGA-3/DHA/EPA/FISH OIL 1,000 MG CAPSULE PO SCH (09:32)
[2022-09-12] MEDS: LURASIDONE HCL 80 MG TABLET PO SCH (16:52)
[2022-09-12] MEDS: DOCUSATE SODIUM 250 MG CAPSULE PO SCH (16:54)
[2022-09-12] MEDS: ATORVASTATIN CALCIUM 20 MG TABLET PO SCH (20:27)
[2022-09-12] MEDS: DIVALPROEX SODIUM 500 MG DR TABLET PO SCH (20:27)
[2022-09-12] MEDS: MIRTAZAPINE 15 MG TABLET PO SCH (20:28)
[2022-09-12] MEDS: MELATONIN 5 MG TABLET PO SCH (22:20)
[2022-09-13] VITALS (9 sets, daily range): BP systolic 123–129; BP diastolic 64–69; PULSE 69–91; RESP 16–17; TEMP 97.4–98.5; O2SAT 99–100
[2022-09-13] MEDS: MetFORMIN HCL 500 MG TABLET PO SCH (06:40)
[2022-09-13 06:46] LABS: GLUCOMETER DEV NAME(LOC) BV2S.; GLUCOSE,POINT OF CARE 99 MG/DL (70-110)
[2022-09-13] MEDS: LISINOPRIL 10 MG TABLET PO SCH (08:23)
[2022-09-13] MEDS: FLUoxetine HCL 20 MG CAPSULE PO SCH (08:23)
[2022-09-13] MEDS: OMEGA-3/DHA/EPA/FISH OIL 1,000 MG CAPSULE PO SCH (08:23)
[2022-09-13] MEDS: DOCUSATE SODIUM 250 MG CAPSULE PO SCH ×2 (08:23→17:22)
[2022-09-13] MEDS: AmLODIPine BESYLATE 5 MG TABLET PO SCH (08:29)
[2022-09-13] MEDS: TRIHEXYPHENIDYL HCL 5 MG TABLET PO SCH ×3 (08:29→17:22)
[2022-09-13] MEDS: LURASIDONE HCL 80 MG TABLET PO SCH (17:22)
[2022-09-13] MEDS: MIRTAZAPINE 15 MG TABLET PO SCH (20:21)
[2022-09-13] MEDS: ATORVASTATIN CALCIUM 20 MG TABLET PO SCH (20:21)
[2022-09-13] MEDS: DIVALPROEX SODIUM 500 MG DR TABLET PO SCH (20:21)
[2022-09-13] MEDS: MELATONIN 5 MG TABLET PO SCH (20:23)
[2022-09-13] MEDS: IBUPROFEN 600 MG TABLET PO PRN (23:06)
[2022-09-14] VITALS (7 sets, daily range): BP systolic 133–141; BP diastolic 65–81; PULSE 72–85; RESP 16–19; TEMP 97.5–98.2; O2SAT 97–98
[2022-09-14 06:17] LABS: GLUCOMETER DEV NAME(LOC) BV2S.; GLUCOSE,POINT OF CARE 89 MG/DL (70-110)
[2022-09-14] MEDS: MetFORMIN HCL 500 MG TABLET PO SCH (06:56)
[2022-09-14] MEDS: TRIHEXYPHENIDYL HCL 5 MG TABLET PO SCH ×3 (08:07→16:14)
[2022-09-14] MEDS: LISINOPRIL 10 MG TABLET PO SCH (08:07)
[2022-09-14] MEDS: DOCUSATE SODIUM 250 MG CAPSULE PO SCH ×2 (08:07→16:14)
[2022-09-14] MEDS: FLUoxetine HCL 20 MG CAPSULE PO SCH (08:07)
[2022-09-14] MEDS: OMEGA-3/DHA/EPA/FISH OIL 1,000 MG CAPSULE PO SCH (08:07)
[2022-09-14] MEDS: AmLODIPine BESYLATE 5 MG TABLET PO SCH (08:07)
[2022-09-14 08:21] LABS: GLUCOMETER DEV NAME(LOC) POC.BV; POC SARS-COV2 AG, FIA NEGATIVE (NEGATIVE)
[2022-09-14] MEDS: LURASIDONE HCL 80 MG TABLET PO SCH (16:14)
[2022-09-14] MEDS: MIRTAZAPINE 15 MG TABLET PO SCH (20:06)
[2022-09-14] MEDS: DIVALPROEX SODIUM 500 MG DR TABLET PO SCH (20:06)
[2022-09-14] MEDS: ATORVASTATIN CALCIUM 20 MG TABLET PO SCH (20:07)
[2022-09-14] MEDS: MELATONIN 5 MG TABLET PO SCH (20:10)
[2022-09-15 00:06] VITALS: TEMP 97.6
[2022-09-15 04:25] VITALS: TEMP 98
[2022-09-15 06:22] LABS: GLUCOMETER DEV NAME(LOC) BV2S.; GLUCOSE,POINT OF CARE 92 MG/DL (70-110)
[2022-09-15] MEDS: MetFORMIN HCL 500 MG TABLET PO SCH (06:35)
[2022-09-15] MEDS: DOCUSATE SODIUM 250 MG CAPSULE PO SCH ×2 (08:00→16:51)
[2022-09-15] MEDS: TRIHEXYPHENIDYL HCL 5 MG TABLET PO SCH ×3 (08:07→16:51)
[2022-09-15] MEDS: LISINOPRIL 10 MG TABLET PO SCH (08:07)
[2022-09-15] MEDS: FLUoxetine HCL 20 MG CAPSULE PO SCH (08:08)
[2022-09-15] MEDS: AmLODIPine BESYLATE 5 MG TABLET PO SCH (08:08)
[2022-09-15] MEDS: OMEGA-3/DHA/EPA/FISH OIL 1,000 MG CAPSULE PO SCH (08:08)
[2022-09-15 08:35] VITALS: BP 129/75; PULSE 88; TEMP 97.6; O2SAT 97
[2022-09-15 12:24] VITALS: TEMP 95.6
[2022-09-15] MEDS: LURASIDONE HCL 80 MG TABLET PO SCH (16:51)
[2022-09-15 17:36] VITALS: TEMP 98.1
[2022-09-15 20:14] VITALS: BP 125/72; PULSE 85; RESP 18; TEMP 98.2; O2SAT 95
[2022-09-15] MEDS: MELATONIN 5 MG TABLET PO SCH (20:28)
[2022-09-15] MEDS: DIVALPROEX SODIUM 500 MG DR TABLET PO SCH (20:29)
[2022-09-15] MEDS: MIRTAZAPINE 15 MG TABLET PO SCH (20:29)
[2022-09-15] MEDS: ATORVASTATIN CALCIUM 20 MG TABLET PO SCH (20:29)
[2022-09-16] VITALS (8 sets, daily range): BP systolic 108–145; BP diastolic 59–79; PULSE 73–82; RESP 16–18; TEMP 97.8–98.3; O2SAT 97
[2022-09-16] MEDS: MetFORMIN HCL 500 MG TABLET PO SCH (06:27)
[2022-09-16 06:47] LABS: GLUCOMETER DEV NAME(LOC) BV2S.; GLUCOSE,POINT OF CARE 96 MG/DL (70-110)
[2022-09-16] MEDS: DOCUSATE SODIUM 250 MG CAPSULE PO SCH ×2 (08:23→16:24)
[2022-09-16] MEDS: TRIHEXYPHENIDYL HCL 5 MG TABLET PO SCH ×3 (08:23→16:24)
[2022-09-16] MEDS: FLUoxetine HCL 20 MG CAPSULE PO SCH (08:23)
[2022-09-16] MEDS: OMEGA-3/DHA/EPA/FISH OIL 1,000 MG CAPSULE PO SCH (08:24)
[2022-09-16] MEDS: LISINOPRIL 10 MG TABLET PO SCH (10:09)
[2022-09-16] MEDS: AmLODIPine BESYLATE 5 MG TABLET PO SCH (10:09)
[2022-09-16] MEDS: LURASIDONE HCL 80 MG TABLET PO SCH (16:24)
[2022-09-16] MEDS: GABAPENTIN 400 MG CAPSULE PO SCH (20:14)
[2022-09-16] MEDS: DIVALPROEX SODIUM 500 MG DR TABLET PO SCH (20:14)
[2022-09-16] MEDS: MELATONIN 5 MG TABLET PO SCH (20:15)
[2022-09-16] MEDS: MIRTAZAPINE 15 MG TABLET PO SCH (20:15)
[2022-09-16] MEDS: ATORVASTATIN CALCIUM 20 MG TABLET PO SCH (20:15)
[2022-09-17 01:58] VITALS: TEMP 99
[2022-09-17 05:35] VITALS: TEMP 98.8
[2022-09-17 06:04] LABS: GLUCOMETER DEV NAME(LOC) BV2S.; GLUCOSE,POINT OF CARE 77 MG/DL (70-110)
[2022-09-17] MEDS: MetFORMIN HCL 500 MG TABLET PO SCH (06:27)
[2022-09-17 08:26] VITALS: BP 118/73; PULSE 87; RESP 17; TEMP 97.8; O2SAT 99
[2022-09-17] MEDS: FLUoxetine HCL 20 MG CAPSULE PO SCH (10:18)
[2022-09-17] MEDS: LISINOPRIL 10 MG TABLET PO SCH (10:18)
[2022-09-17] MEDS: DOCUSATE SODIUM 250 MG CAPSULE PO SCH ×2 (10:18→16:50)
[2022-09-17] MEDS: GABAPENTIN 400 MG CAPSULE PO SCH ×4 (10:18→20:28)
[2022-09-17] MEDS: OMEGA-3/DHA/EPA/FISH OIL 1,000 MG CAPSULE PO SCH (10:18)
[2022-09-17] MEDS: AmLODIPine BESYLATE 5 MG TABLET PO SCH (10:19)
[2022-09-17] MEDS: TRIHEXYPHENIDYL HCL 5 MG TABLET PO SCH ×3 (10:19→16:50)
[2022-09-17 12:17] VITALS: TEMP 97.9
[2022-09-17 16:23] VITALS: TEMP 97.5
[2022-09-17] MEDS: LURASIDONE HCL 80 MG TABLET PO SCH (16:50)
[2022-09-17 20:10] VITALS: BP 130/73; PULSE 89; RESP 18; TEMP 98.1; O2SAT 96
[2022-09-17] MEDS: DIVALPROEX SODIUM 500 MG DR TABLET PO SCH (20:28)
[2022-09-17] MEDS: MIRTAZAPINE 15 MG TABLET PO SCH (20:28)
[2022-09-17] MEDS: ATORVASTATIN CALCIUM 20 MG TABLET PO SCH (20:28)
[2022-09-17] MEDS: MELATONIN 5 MG TABLET PO SCH (20:28)
[2022-09-18 00:04] VITALS: TEMP 97.6
[2022-09-18 04:15] VITALS: TEMP 97.7
[2022-09-18] MEDS: MetFORMIN HCL 500 MG TABLET PO SCH (06:35)
[2022-09-18 08:02] VITALS: BP_SYST 128; BP_SYST 135; BP_DIAS 59; BP_DIAS 65; PULSE 90; PULSE 97; RESP 17; RESP 18; TEMP 95.6; TEMP 97.6; O2SAT 97
[2022-09-18 08:10] LABS: GLUCOMETER DEV NAME(LOC) BV2S.; GLUCOSE,POINT OF CARE 73 MG/DL (70-110)
[2022-09-18] MEDS: TRIHEXYPHENIDYL HCL 5 MG TABLET PO SCH ×3 (08:34→16:42)
[2022-09-18] MEDS: FLUoxetine HCL 20 MG CAPSULE PO SCH (08:34)
[2022-09-18] MEDS: LISINOPRIL 10 MG TABLET PO SCH (08:34)
[2022-09-18] MEDS: AmLODIPine BESYLATE 5 MG TABLET PO SCH (08:34)
[2022-09-18] MEDS: DOCUSATE SODIUM 250 MG CAPSULE PO SCH ×2 (08:34→16:42)
[2022-09-18] MEDS: GABAPENTIN 400 MG CAPSULE PO SCH ×4 (08:34→20:51)
[2022-09-18] MEDS: OMEGA-3/DHA/EPA/FISH OIL 1,000 MG CAPSULE PO SCH (08:34)
[2022-09-18 11:22] VITALS: TEMP 97.6
[2022-09-18 16:40] VITALS: TEMP 97.7
[2022-09-18] MEDS: LURASIDONE HCL 80 MG TABLET PO SCH (16:42)
[2022-09-18 20:09] VITALS: BP 105/62; PULSE 66; RESP 19; TEMP 97.2; O2SAT 100
[2022-09-18] MEDS: MELATONIN 5 MG TABLET PO SCH (20:41)
[2022-09-18] MEDS: DIVALPROEX SODIUM 500 MG DR TABLET PO SCH (20:41)
[2022-09-18] MEDS: MIRTAZAPINE 15 MG TABLET PO SCH (20:41)
[2022-09-18] MEDS: ATORVASTATIN CALCIUM 20 MG TABLET PO SCH (20:41)
[2022-09-19] VITALS (8 sets, daily range): BP systolic 109–128; BP diastolic 60–68; PULSE 67–75; RESP 18–19; TEMP 97.6–98.3; O2SAT 98–100
[2022-09-19] MEDS: ACETAMINOPHEN 325 MG TABLET PO PRN (03:52)
[2022-09-19 06:36] LABS: GLUCOMETER DEV NAME(LOC) BV2S.; GLUCOSE,POINT OF CARE 113 MG/DL (70-110)
[2022-09-19] MEDS: MetFORMIN HCL 500 MG TABLET PO SCH (06:38)
[2022-09-19] MEDS: LISINOPRIL 10 MG TABLET PO SCH (08:43)
[2022-09-19] MEDS: GABAPENTIN 400 MG CAPSULE PO SCH ×4 (08:43→20:33)
[2022-09-19] MEDS: OMEGA-3/DHA/EPA/FISH OIL 1,000 MG CAPSULE PO SCH (08:43)
[2022-09-19] MEDS: TRIHEXYPHENIDYL HCL 5 MG TABLET PO SCH ×3 (08:43→16:42)
[2022-09-19] MEDS: FLUoxetine HCL 20 MG CAPSULE PO SCH (08:43)
[2022-09-19] MEDS: AmLODIPine BESYLATE 5 MG TABLET PO SCH (08:43)
[2022-09-19] MEDS: DOCUSATE SODIUM 250 MG CAPSULE PO SCH ×2 (08:43→16:44)
[2022-09-19] MEDS: LURASIDONE HCL 80 MG TABLET PO SCH (16:42)
[2022-09-19] MEDS: MIRTAZAPINE 15 MG TABLET PO SCH (20:33)
[2022-09-19] MEDS: MELATONIN 5 MG TABLET PO SCH (20:33)
[2022-09-19] MEDS: ATORVASTATIN CALCIUM 20 MG TABLET PO SCH (20:33)
[2022-09-19] MEDS: DIVALPROEX SODIUM 500 MG DR TABLET PO SCH (20:33)
[2022-09-20 00:11] VITALS: TEMP 97.8
[2022-09-20 04:30] VITALS: TEMP 98
[2022-09-20] MEDS: MetFORMIN HCL 500 MG TABLET PO SCH (06:30)
[2022-09-20 06:41] LABS: GLUCOMETER DEV NAME(LOC) BV2S.; GLUCOSE,POINT OF CARE 125 MG/DL (70-110)
[2022-09-20 08:17] VITALS: BP 118/66; PULSE 79; RESP 16; TEMP 98
[2022-09-20] MEDS: OMEGA-3/DHA/EPA/FISH OIL 1,000 MG CAPSULE PO SCH (08:30)
[2022-09-20] MEDS: GABAPENTIN 400 MG CAPSULE PO SCH ×4 (08:30→20:43)
[2022-09-20] MEDS: DOCUSATE SODIUM 250 MG CAPSULE PO SCH ×2 (08:30→16:57)
[2022-09-20] MEDS: FLUoxetine HCL 20 MG CAPSULE PO SCH (08:30)
[2022-09-20] MEDS: LISINOPRIL 10 MG TABLET PO SCH (08:30)
[2022-09-20] MEDS: TRIHEXYPHENIDYL HCL 5 MG TABLET PO SCH ×3 (08:31→16:57)
[2022-09-20] MEDS: AmLODIPine BESYLATE 5 MG TABLET PO SCH (08:57)
[2022-09-20 12:36] VITALS: TEMP 97.7
[2022-09-20 16:03] VITALS: TEMP 97.9
[2022-09-20] MEDS: LURASIDONE HCL 80 MG TABLET PO SCH (16:57)
[2022-09-20 20:06] VITALS: BP 144/80; PULSE 82; RESP 17; TEMP 97.6; O2SAT 99
[2022-09-20] MEDS: DIVALPROEX SODIUM 500 MG DR TABLET PO SCH (20:43)
[2022-09-20] MEDS: ATORVASTATIN CALCIUM 20 MG TABLET PO SCH (20:43)
[2022-09-20] MEDS: MELATONIN 5 MG TABLET PO SCH (20:44)
[2022-09-20] MEDS: MIRTAZAPINE 15 MG TABLET PO SCH (20:44)
[2022-09-21] VITALS (7 sets, daily range): BP systolic 116–132; BP diastolic 60–61; PULSE 73–86; RESP 17–18; TEMP 97.5–98.2; O2SAT 97–98
[2022-09-21] MEDS: MetFORMIN HCL 500 MG TABLET PO SCH (06:37)
[2022-09-21 08:01] LABS: GLUCOMETER DEV NAME(LOC) BV2S.; GLUCOSE,POINT OF CARE 87 MG/DL (70-110)
[2022-09-21] MEDS: OMEGA-3/DHA/EPA/FISH OIL 1,000 MG CAPSULE PO SCH (08:08)
[2022-09-21] MEDS: LISINOPRIL 10 MG TABLET PO SCH (08:08)
[2022-09-21] MEDS: DOCUSATE SODIUM 250 MG CAPSULE PO SCH ×2 (08:08→16:59)
[2022-09-21] MEDS: AmLODIPine BESYLATE 5 MG TABLET PO SCH (08:08)
[2022-09-21] MEDS: GABAPENTIN 400 MG CAPSULE PO SCH ×4 (08:08→20:12)
[2022-09-21] MEDS: FLUoxetine HCL 20 MG CAPSULE PO SCH (08:08)
[2022-09-21] MEDS: TRIHEXYPHENIDYL HCL 5 MG TABLET PO SCH ×3 (08:08→16:59)
[2022-09-21 08:11] LABS: GLUCOMETER DEV NAME(LOC) POC.BV; POC SARS-COV2 AG, FIA NEGATIVE (NEGATIVE)
[2022-09-21] MEDS: LURASIDONE HCL 80 MG TABLET PO SCH (16:59)
[2022-09-21] MEDS: MIRTAZAPINE 15 MG TABLET PO SCH (20:12)
[2022-09-21] MEDS: MELATONIN 5 MG TABLET PO SCH (20:12)
[2022-09-21] MEDS: DIVALPROEX SODIUM 500 MG DR TABLET PO SCH (20:12)
[2022-09-21] MEDS: ATORVASTATIN CALCIUM 20 MG TABLET PO SCH (20:12)
[2022-09-22] VITALS (12 sets, daily range): BP systolic 102–140; BP diastolic 60–78; PULSE 66–75; RESP 15–17; TEMP 96.7–98.3; O2SAT 98
[2022-09-22 06:26] LABS: GLUCOMETER DEV NAME(LOC) BV2S.; GLUCOSE,POINT OF CARE 73 MG/DL (70-110)
[2022-09-22] MEDS: MetFORMIN HCL 500 MG TABLET PO SCH (06:35)
[2022-09-22] MEDS: DOCUSATE SODIUM 250 MG CAPSULE PO SCH ×2 (08:10→16:41)
[2022-09-22] MEDS: LISINOPRIL 10 MG TABLET PO SCH (08:10)
[2022-09-22] MEDS: GABAPENTIN 400 MG CAPSULE PO SCH ×4 (08:10→20:03)
[2022-09-22] MEDS: FLUoxetine HCL 20 MG CAPSULE PO SCH (08:10)
[2022-09-22] MEDS: AmLODIPine BESYLATE 5 MG TABLET PO SCH (08:10)
[2022-09-22] MEDS: OMEGA-3/DHA/EPA/FISH OIL 1,000 MG CAPSULE PO SCH (08:10)
[2022-09-22] MEDS: TRIHEXYPHENIDYL HCL 5 MG TABLET PO SCH ×3 (08:10→16:41)
[2022-09-22] MEDS: IBUPROFEN 600 MG TABLET PO PRN (10:40)
[2022-09-22] MEDS: ACETAMINOPHEN 325 MG TABLET PO PRN (15:49)
[2022-09-22] MEDS: LURASIDONE HCL 80 MG TABLET PO SCH (16:41)
[2022-09-22] MEDS: ATORVASTATIN CALCIUM 20 MG TABLET PO SCH (20:03)
[2022-09-22] MEDS: MIRTAZAPINE 15 MG TABLET PO SCH (20:03)
[2022-09-22] MEDS: DIVALPROEX SODIUM 500 MG DR TABLET PO SCH (20:03)
[2022-09-22] MEDS: MELATONIN 5 MG TABLET PO SCH (20:03)
[2022-09-23] VITALS (10 sets, daily range): BP systolic 105–125; BP diastolic 65–67; PULSE 70–74; RESP 16–18; TEMP 97.3–98.3; O2SAT 98–100
[2022-09-23 06:22] LABS: GLUCOMETER DEV NAME(LOC) BV2S.; GLUCOSE,POINT OF CARE 73 MG/DL (70-110)
[2022-09-23] MEDS: MetFORMIN HCL 500 MG TABLET PO SCH (06:53)
[2022-09-23] MEDS: DOCUSATE SODIUM 250 MG CAPSULE PO SCH ×2 (08:48→16:33)
[2022-09-23] MEDS: AmLODIPine BESYLATE 5 MG TABLET PO SCH (08:48)
[2022-09-23] MEDS: GABAPENTIN 400 MG CAPSULE PO SCH ×4 (08:48→20:51)
[2022-09-23] MEDS: OMEGA-3/DHA/EPA/FISH OIL 1,000 MG CAPSULE PO SCH (08:48)
[2022-09-23] MEDS: FLUoxetine HCL 20 MG CAPSULE PO SCH (08:48)
[2022-09-23] MEDS: LISINOPRIL 10 MG TABLET PO SCH (08:48)
[2022-09-23] MEDS: TRIHEXYPHENIDYL HCL 5 MG TABLET PO SCH ×3 (08:48→16:33)
[2022-09-23] MEDS: ACETAMINOPHEN 325 MG TABLET PO PRN (10:37)
[2022-09-23] MEDS: LURASIDONE HCL 80 MG TABLET PO SCH (16:33)
[2022-09-23] MEDS: ATORVASTATIN CALCIUM 20 MG TABLET PO SCH (20:51)
[2022-09-23] MEDS: MIRTAZAPINE 15 MG TABLET PO SCH (20:51)
[2022-09-23] MEDS: DIVALPROEX SODIUM 500 MG DR TABLET PO SCH (20:52)
[2022-09-23] MEDS: MELATONIN 5 MG TABLET PO SCH (20:52)
[2022-09-24 00:01] VITALS: TEMP 97.9
[2022-09-24 04:01] VITALS: TEMP 98
[2022-09-24] MEDS: MetFORMIN HCL 500 MG TABLET PO SCH (06:20)
[2022-09-24 06:33] LABS: GLUCOMETER DEV NAME(LOC) BV2S.; GLUCOSE,POINT OF CARE 81 MG/DL (70-110)
[2022-09-24] MEDS: GABAPENTIN 400 MG CAPSULE PO SCH ×4 (08:17→20:00)
[2022-09-24] MEDS: OMEGA-3/DHA/EPA/FISH OIL 1,000 MG CAPSULE PO SCH (08:17)
[2022-09-24] MEDS: DOCUSATE SODIUM 250 MG CAPSULE PO SCH ×2 (08:18→16:20)
[2022-09-24] MEDS: FLUoxetine HCL 20 MG CAPSULE PO SCH (08:18)
[2022-09-24] MEDS: TRIHEXYPHENIDYL HCL 5 MG TABLET PO SCH ×3 (08:18→16:19)
[2022-09-24] MEDS: AmLODIPine BESYLATE 5 MG TABLET PO SCH (08:18)
[2022-09-24] MEDS: LISINOPRIL 10 MG TABLET PO SCH (08:38)
[2022-09-24 08:54] VITALS: BP 118/60; PULSE 64; RESP 18; TEMP 98; TEMP 98.1; O2SAT 99
[2022-09-24 11:54] LABS: GLUCOMETER DEV NAME(LOC) BV2S.; GLUCOSE,POINT OF CARE 111 MG/DL (70-110)
[2022-09-24 12:02] VITALS: TEMP 97.6
[2022-09-24 16:09] VITALS: TEMP 97.6
[2022-09-24] MEDS: LURASIDONE HCL 80 MG TABLET PO SCH (16:19)
[2022-09-24] MEDS: DIVALPROEX SODIUM 500 MG DR TABLET PO SCH (20:00)
[2022-09-24] MEDS: ATORVASTATIN CALCIUM 20 MG TABLET PO SCH (20:00)
[2022-09-24] MEDS: MIRTAZAPINE 15 MG TABLET PO SCH (20:00)
[2022-09-24] MEDS: MELATONIN 5 MG TABLET PO SCH (20:04)
[2022-09-24 20:07] VITALS: BP 113/62; PULSE 62; RESP 17; TEMP 97.7; O2SAT 100
[2022-09-25] VITALS (7 sets, daily range): BP systolic 116–130; BP diastolic 66–72; PULSE 72–76; RESP 18; TEMP 97.7–98.8; O2SAT 97
[2022-09-25 06:33] LABS: GLUCOMETER DEV NAME(LOC) BV2S.; GLUCOSE,POINT OF CARE 86 MG/DL (70-110)
[2022-09-25] MEDS: MetFORMIN HCL 500 MG TABLET PO SCH (06:36)
[2022-09-25] MEDS: OMEGA-3/DHA/EPA/FISH OIL 1,000 MG CAPSULE PO SCH (08:33)
[2022-09-25] MEDS: GABAPENTIN 400 MG CAPSULE PO SCH ×4 (08:33→20:00)
[2022-09-25] MEDS: TRIHEXYPHENIDYL HCL 5 MG TABLET PO SCH ×3 (08:33→16:41)
[2022-09-25] MEDS: AmLODIPine BESYLATE 5 MG TABLET PO SCH (08:34)
[2022-09-25] MEDS: DOCUSATE SODIUM 250 MG CAPSULE PO SCH ×2 (08:34→16:41)
[2022-09-25] MEDS: LISINOPRIL 10 MG TABLET PO SCH (08:34)
[2022-09-25] MEDS: FLUoxetine HCL 20 MG CAPSULE PO SCH (08:34)
[2022-09-25] MEDS: LURASIDONE HCL 80 MG TABLET PO SCH (16:41)
[2022-09-25] MEDS: MIRTAZAPINE 15 MG TABLET PO SCH (20:00)
[2022-09-25] MEDS: ATORVASTATIN CALCIUM 20 MG TABLET PO SCH (20:01)
[2022-09-25] MEDS: DIVALPROEX SODIUM 500 MG DR TABLET PO SCH (20:01)
[2022-09-25] MEDS: MELATONIN 5 MG TABLET PO SCH (20:01)
[2022-09-26] VITALS (7 sets, daily range): BP systolic 95–143; BP diastolic 55–77; PULSE 67–68; RESP 17–18; TEMP 97.6–98.3; O2SAT 97–99
[2022-09-26 06:13] LABS: GLUCOMETER DEV NAME(LOC) BV2S.; GLUCOSE,POINT OF CARE 88 MG/DL (70-110)
[2022-09-26] MEDS: MetFORMIN HCL 500 MG TABLET PO SCH (06:36)
[2022-09-26] MEDS: DOCUSATE SODIUM 250 MG CAPSULE PO SCH ×2 (08:24→17:11)
[2022-09-26] MEDS: AmLODIPine BESYLATE 5 MG TABLET PO SCH (08:24)
[2022-09-26] MEDS: TRIHEXYPHENIDYL HCL 5 MG TABLET PO SCH ×3 (08:24→17:11)
[2022-09-26] MEDS: GABAPENTIN 400 MG CAPSULE PO SCH ×4 (08:24→20:25)
[2022-09-26] MEDS: FLUoxetine HCL 20 MG CAPSULE PO SCH (08:24)
[2022-09-26] MEDS: OMEGA-3/DHA/EPA/FISH OIL 1,000 MG CAPSULE PO SCH (08:25)
[2022-09-26] MEDS: LISINOPRIL 10 MG TABLET PO SCH (08:25)
[2022-09-26] MEDS: LURASIDONE HCL 80 MG TABLET PO SCH (17:11)
[2022-09-26] MEDS: ACETAMINOPHEN 325 MG TABLET PO PRN (19:40)
[2022-09-26] MEDS: DIVALPROEX SODIUM 500 MG DR TABLET PO SCH (20:24)
[2022-09-26] MEDS: ATORVASTATIN CALCIUM 20 MG TABLET PO SCH (20:25)
[2022-09-26] MEDS: MIRTAZAPINE 15 MG TABLET PO SCH (20:25)
[2022-09-26] MEDS: MELATONIN 5 MG TABLET PO SCH (20:25)
[2022-09-27] VITALS (9 sets, daily range): BP systolic 109–140; BP diastolic 62–86; PULSE 64–68; RESP 17–18; TEMP 97.6–98.7; O2SAT 98
[2022-09-27 06:34] LABS: GLUCOMETER DEV NAME(LOC) BV2S.; GLUCOSE,POINT OF CARE 73 MG/DL (70-110)
[2022-09-27] MEDS: MetFORMIN HCL 500 MG TABLET PO SCH (06:35)
[2022-09-27] MEDS: OMEGA-3/DHA/EPA/FISH OIL 1,000 MG CAPSULE PO SCH (08:38)
[2022-09-27] MEDS: TRIHEXYPHENIDYL HCL 5 MG TABLET PO SCH ×3 (08:38→16:12)
[2022-09-27] MEDS: DOCUSATE SODIUM 250 MG CAPSULE PO SCH ×2 (08:39→16:11)
[2022-09-27] MEDS: LISINOPRIL 10 MG TABLET PO SCH (08:39)
[2022-09-27] MEDS: FLUoxetine HCL 20 MG CAPSULE PO SCH (08:39)
[2022-09-27] MEDS: GABAPENTIN 400 MG CAPSULE PO SCH ×4 (08:39→19:56)
[2022-09-27] MEDS: AmLODIPine BESYLATE 5 MG TABLET PO SCH (08:39)
[2022-09-27 12:37] LABS: GLUCOMETER DEV NAME(LOC) BV2S.; GLUCOSE,POINT OF CARE 140 MG/DL (70-110)
[2022-09-27] MEDS: LURASIDONE HCL 80 MG TABLET PO SCH (16:12)
[2022-09-27 17:33] LABS: GLUCOMETER DEV NAME(LOC) BV2S.; GLUCOSE,POINT OF CARE 153 MG/DL (70-110)
[2022-09-27] MEDS: DIVALPROEX SODIUM 500 MG DR TABLET PO SCH (19:55)
[2022-09-27] MEDS: ATORVASTATIN CALCIUM 20 MG TABLET PO SCH (19:56)
[2022-09-27] MEDS: MIRTAZAPINE 15 MG TABLET PO SCH (19:56)
[2022-09-27] MEDS: MELATONIN 5 MG TABLET PO SCH (19:57)
[2022-09-28] VITALS (7 sets, daily range): BP systolic 100–115; BP diastolic 60–63; PULSE 62–67; RESP 16–18; TEMP 96.6–97.9; O2SAT 98
[2022-09-28] MEDS: MetFORMIN HCL 500 MG TABLET PO SCH (06:15)
[2022-09-28 06:23] LABS: GLUCOMETER DEV NAME(LOC) BV2S.; GLUCOSE,POINT OF CARE 74 MG/DL (70-110)
[2022-09-28 06:47] LABS: GLUCOMETER DEV NAME(LOC) POC.BV; POC SARS-COV2 AG, FIA NEGATIVE (NEGATIVE)
[2022-09-28] MEDS: DOCUSATE SODIUM 250 MG CAPSULE PO SCH ×2 (08:22→16:47)
[2022-09-28] MEDS: LISINOPRIL 10 MG TABLET PO SCH (08:22)
[2022-09-28] MEDS: FLUoxetine HCL 20 MG CAPSULE PO SCH (08:22)
[2022-09-28] MEDS: GABAPENTIN 400 MG CAPSULE PO SCH ×4 (08:22→20:37)
[2022-09-28] MEDS: AmLODIPine BESYLATE 5 MG TABLET PO SCH (08:22)
[2022-09-28] MEDS: OMEGA-3/DHA/EPA/FISH OIL 1,000 MG CAPSULE PO SCH (08:22)
[2022-09-28] MEDS: TRIHEXYPHENIDYL HCL 5 MG TABLET PO SCH ×3 (08:22→16:47)
[2022-09-28] MEDS: LURASIDONE HCL 80 MG TABLET PO SCH (16:47)
[2022-09-28] MEDS: ACETAMINOPHEN 325 MG TABLET PO PRN (18:50)
[2022-09-28] MEDS: MIRTAZAPINE 15 MG TABLET PO SCH (20:37)
[2022-09-28] MEDS: DIVALPROEX SODIUM 500 MG DR TABLET PO SCH (20:37)
[2022-09-28] MEDS: ATORVASTATIN CALCIUM 20 MG TABLET PO SCH (20:38)
[2022-09-28] MEDS: MELATONIN 5 MG TABLET PO SCH (20:39)
[2022-09-29] VITALS (10 sets, daily range): BP systolic 103–116; BP diastolic 60–68; PULSE 63–77; RESP 17–18; TEMP 97.5–98.2; O2SAT 97–100
[2022-09-29 06:26] LABS: GLUCOMETER DEV NAME(LOC) BV2S.; GLUCOSE,POINT OF CARE 83 MG/DL (70-110)
[2022-09-29] MEDS: MetFORMIN HCL 500 MG TABLET PO SCH (06:39)
[2022-09-29] MEDS: LISINOPRIL 10 MG TABLET PO SCH (08:41)
[2022-09-29] MEDS: TRIHEXYPHENIDYL HCL 5 MG TABLET PO SCH ×3 (08:41→16:50)
[2022-09-29] MEDS: DOCUSATE SODIUM 250 MG CAPSULE PO SCH ×2 (08:41→16:50)
[2022-09-29] MEDS: OMEGA-3/DHA/EPA/FISH OIL 1,000 MG CAPSULE PO SCH (08:42)
[2022-09-29] MEDS: GABAPENTIN 400 MG CAPSULE PO SCH ×4 (08:42→20:45)
[2022-09-29] MEDS: FLUoxetine HCL 20 MG CAPSULE PO SCH (08:42)
[2022-09-29] MEDS: AmLODIPine BESYLATE 5 MG TABLET PO SCH (08:42)
[2022-09-29] MEDS: ACETAMINOPHEN 325 MG TABLET PO PRN (16:29)
[2022-09-29] MEDS: LURASIDONE HCL 80 MG TABLET PO SCH (16:50)
[2022-09-29] MEDS: MIRTAZAPINE 15 MG TABLET PO SCH (20:45)
[2022-09-29] MEDS: ATORVASTATIN CALCIUM 20 MG TABLET PO SCH (20:45)
[2022-09-29] MEDS: MELATONIN 5 MG TABLET PO SCH (20:45)
[2022-09-29] MEDS: DIVALPROEX SODIUM 500 MG DR TABLET PO SCH (20:45)
[2022-09-30] VITALS: TEMP 97.9
[2022-09-30 04:44] VITALS: TEMP 97.9
[2022-09-30 06:16] LABS: GLUCOMETER DEV NAME(LOC) BV2S.; GLUCOSE,POINT OF CARE 83 MG/DL (70-110)
[2022-09-30] MEDS: MetFORMIN HCL 500 MG TABLET PO SCH (06:34)
[2022-09-30] MEDS: FLUoxetine HCL 20 MG CAPSULE PO SCH (08:43)
[2022-09-30] MEDS: DOCUSATE SODIUM 250 MG CAPSULE PO SCH ×2 (08:43→16:41)
[2022-09-30] MEDS: TRIHEXYPHENIDYL HCL 5 MG TABLET PO SCH ×3 (08:44→16:41)
[2022-09-30] MEDS: LISINOPRIL 10 MG TABLET PO SCH (08:44)
[2022-09-30] MEDS: OMEGA-3/DHA/EPA/FISH OIL 1,000 MG CAPSULE PO SCH (08:44)
[2022-09-30] MEDS: GABAPENTIN 400 MG CAPSULE PO SCH ×4 (08:44→20:25)
[2022-09-30] MEDS: AmLODIPine BESYLATE 5 MG TABLET PO SCH (08:44)
[2022-09-30 09:41] VITALS: BP 123/62; PULSE 89; RESP 18; TEMP 98; O2SAT 99
[2022-09-30 16:10] VITALS: TEMP 98
[2022-09-30] MEDS: LURASIDONE HCL 80 MG TABLET PO SCH (16:41)
[2022-09-30] MEDS: ACETAMINOPHEN 325 MG TABLET PO PRN (16:52)
[2022-09-30 20:24] VITALS: BP 130/63; PULSE 64; RESP 18; TEMP 98; O2SAT 95
[2022-09-30] MEDS: DIVALPROEX SODIUM 500 MG DR TABLET PO SCH (20:25)
[2022-09-30] MEDS: ATORVASTATIN CALCIUM 20 MG TABLET PO SCH (20:25)
[2022-09-30] MEDS: MIRTAZAPINE 15 MG TABLET PO SCH (20:25)
[2022-09-30] MEDS: MELATONIN 5 MG TABLET PO SCH (20:25)
[2022-10-01] VITALS (8 sets, daily range): BP systolic 122–140; BP diastolic 65–77; PULSE 68–100; RESP 18–19; TEMP 97.6–98.1; O2SAT 97–98
[2022-10-01 06:26] LABS: GLUCOMETER DEV NAME(LOC) BV2S.; GLUCOSE,POINT OF CARE 80 MG/DL (70-110)
[2022-10-01] MEDS: MetFORMIN HCL 500 MG TABLET PO SCH (06:34)
[2022-10-01] MEDS: TRIHEXYPHENIDYL HCL 5 MG TABLET PO SCH ×3 (08:37→16:51)
[2022-10-01] MEDS: AmLODIPine BESYLATE 5 MG TABLET PO SCH (08:38)
[2022-10-01] MEDS: FLUoxetine HCL 20 MG CAPSULE PO SCH (08:38)
[2022-10-01] MEDS: GABAPENTIN 400 MG CAPSULE PO SCH ×4 (08:38→20:20)
[2022-10-01] MEDS: LISINOPRIL 10 MG TABLET PO SCH (08:38)
[2022-10-01] MEDS: DOCUSATE SODIUM 250 MG CAPSULE PO SCH ×2 (08:38→16:51)
[2022-10-01] MEDS: OMEGA-3/DHA/EPA/FISH OIL 1,000 MG CAPSULE PO SCH (08:38)
[2022-10-01] MEDS: IBUPROFEN 600 MG TABLET PO PRN (15:05)
[2022-10-01] MEDS: LURASIDONE HCL 80 MG TABLET PO SCH (16:51)
[2022-10-01] MEDS: DIVALPROEX SODIUM 500 MG DR TABLET PO SCH (20:20)
[2022-10-01] MEDS: MELATONIN 5 MG TABLET PO SCH (20:20)
[2022-10-01] MEDS: ATORVASTATIN CALCIUM 20 MG TABLET PO SCH (20:20)
[2022-10-01] MEDS: MIRTAZAPINE 15 MG TABLET PO SCH (20:20)
[2022-10-02] VITALS (7 sets, daily range): BP systolic 120–125; BP diastolic 74–77; PULSE 76–80; RESP 16–18; TEMP 97.7–98.2; O2SAT 100
[2022-10-02 06:41] LABS: GLUCOMETER DEV NAME(LOC) BV2S.; GLUCOSE,POINT OF CARE 73 MG/DL (70-110)
[2022-10-02 06:41] LABS: GLUCOMETER DEV NAME(LOC) BV2S.; GLUCOSE,POINT OF CARE 66 MG/DL (70-110)
[2022-10-02] MEDS: MetFORMIN HCL 500 MG TABLET PO SCH (06:41)
[2022-10-02] MEDS: LISINOPRIL 10 MG TABLET PO SCH (08:39)
[2022-10-02] MEDS: DOCUSATE SODIUM 250 MG CAPSULE PO SCH ×2 (08:39→16:38)
[2022-10-02] MEDS: TRIHEXYPHENIDYL HCL 5 MG TABLET PO SCH ×3 (08:39→16:38)
[2022-10-02] MEDS: OMEGA-3/DHA/EPA/FISH OIL 1,000 MG CAPSULE PO SCH (08:40)
[2022-10-02] MEDS: FLUoxetine HCL 20 MG CAPSULE PO SCH (08:40)
[2022-10-02] MEDS: GABAPENTIN 400 MG CAPSULE PO SCH ×4 (08:40→20:04)
[2022-10-02] MEDS: AmLODIPine BESYLATE 5 MG TABLET PO SCH (08:42)
[2022-10-02] MEDS: ACETAMINOPHEN 325 MG TABLET PO PRN (14:06)
[2022-10-02] MEDS: LURASIDONE HCL 80 MG TABLET PO SCH (16:38)
[2022-10-02] MEDS: DIVALPROEX SODIUM 500 MG DR TABLET PO SCH (20:04)
[2022-10-02] MEDS: MIRTAZAPINE 15 MG TABLET PO SCH (20:04)
[2022-10-02] MEDS: ATORVASTATIN CALCIUM 20 MG TABLET PO SCH (20:04)
[2022-10-02] MEDS: MELATONIN 5 MG TABLET PO SCH (20:04)
[2022-10-03] VITALS (7 sets, daily range): BP systolic 109–142; BP diastolic 64–74; PULSE 64–76; RESP 18; TEMP 97.9–98.3; O2SAT 95–97
[2022-10-03] MEDS: MetFORMIN HCL 500 MG TABLET PO SCH (06:15)
[2022-10-03 06:16] LABS: GLUCOMETER DEV NAME(LOC) BV2S.; GLUCOSE,POINT OF CARE 91 MG/DL (70-110)
[2022-10-03] MEDS: GABAPENTIN 400 MG CAPSULE PO SCH ×4 (09:22→20:40)
[2022-10-03] MEDS: FLUoxetine HCL 20 MG CAPSULE PO SCH (09:22)
[2022-10-03] MEDS: AmLODIPine BESYLATE 5 MG TABLET PO SCH (09:22)
[2022-10-03] MEDS: LISINOPRIL 10 MG TABLET PO SCH (09:22)
[2022-10-03] MEDS: DOCUSATE SODIUM 250 MG CAPSULE PO SCH ×2 (09:22→16:49)
[2022-10-03] MEDS: TRIHEXYPHENIDYL HCL 5 MG TABLET PO SCH ×3 (09:22→16:48)
[2022-10-03] MEDS: OMEGA-3/DHA/EPA/FISH OIL 1,000 MG CAPSULE PO SCH (09:22)
[2022-10-03] MEDS: IBUPROFEN 600 MG TABLET PO PRN (10:05)
[2022-10-03] MEDS: LURASIDONE HCL 80 MG TABLET PO SCH (16:49)
[2022-10-03] MEDS: DIVALPROEX SODIUM 500 MG DR TABLET PO SCH (20:39)
[2022-10-03] MEDS: ATORVASTATIN CALCIUM 20 MG TABLET PO SCH (20:39)
[2022-10-03] MEDS: MELATONIN 5 MG TABLET PO SCH (20:40)
[2022-10-03] MEDS: MIRTAZAPINE 15 MG TABLET PO SCH (20:40)
[2022-10-04] VITALS (9 sets, daily range): BP systolic 105–138; BP diastolic 60–69; PULSE 62–74; RESP 17–18; TEMP 97.2–98.7; O2SAT 97
[2022-10-04 06:17] LABS: GLUCOMETER DEV NAME(LOC) BV2S.; GLUCOSE,POINT OF CARE 80 MG/DL (70-110)
[2022-10-04] MEDS: MetFORMIN HCL 500 MG TABLET PO SCH (06:36)
[2022-10-04] MEDS: OMEGA-3/DHA/EPA/FISH OIL 1,000 MG CAPSULE PO SCH (08:33)
[2022-10-04] MEDS: TRIHEXYPHENIDYL HCL 5 MG TABLET PO SCH ×3 (08:33→17:00)
[2022-10-04] MEDS: DOCUSATE SODIUM 250 MG CAPSULE PO SCH ×2 (08:34→17:00)
[2022-10-04] MEDS: AmLODIPine BESYLATE 5 MG TABLET PO SCH (08:34)
[2022-10-04] MEDS: LISINOPRIL 10 MG TABLET PO SCH (08:34)
[2022-10-04] MEDS: GABAPENTIN 400 MG CAPSULE PO SCH ×4 (08:34→21:10)
[2022-10-04] MEDS: FLUoxetine HCL 20 MG CAPSULE PO SCH (08:34)
[2022-10-04] MEDS: IBUPROFEN 600 MG TABLET PO PRN (10:25)
[2022-10-04] MEDS: LURASIDONE HCL 80 MG TABLET PO SCH (17:00)
[2022-10-04] MEDS: MIRTAZAPINE 15 MG TABLET PO SCH (21:09)
[2022-10-04] MEDS: DIVALPROEX SODIUM 500 MG DR TABLET PO SCH (21:10)
[2022-10-04] MEDS: ATORVASTATIN CALCIUM 20 MG TABLET PO SCH (21:10)
[2022-10-04] MEDS: MELATONIN 5 MG TABLET PO SCH (21:10)
[2022-10-05] VITALS (7 sets, daily range): BP systolic 113–120; BP diastolic 60–61; PULSE 61–66; RESP 18; TEMP 97.5–98.3; O2SAT 97–100
[2022-10-05 06:17] LABS: GLUCOMETER DEV NAME(LOC) BV2S.; GLUCOSE,POINT OF CARE 81 MG/DL (70-110)
[2022-10-05] MEDS: MetFORMIN HCL 500 MG TABLET PO SCH (06:21)
[2022-10-05 08:26] LABS: GLUCOMETER DEV NAME(LOC) POC.BV; POC SARS-COV2 AG, FIA NEGATIVE (NEGATIVE)
[2022-10-05] MEDS: TRIHEXYPHENIDYL HCL 5 MG TABLET PO SCH ×3 (08:52→16:59)
[2022-10-05] MEDS: OMEGA-3/DHA/EPA/FISH OIL 1,000 MG CAPSULE PO SCH (08:52)
[2022-10-05] MEDS: DOCUSATE SODIUM 250 MG CAPSULE PO SCH ×2 (08:53→16:59)
[2022-10-05] MEDS: GABAPENTIN 400 MG CAPSULE PO SCH ×4 (08:53→20:05)
[2022-10-05] MEDS: AmLODIPine BESYLATE 5 MG TABLET PO SCH (08:53)
[2022-10-05] MEDS: FLUoxetine HCL 20 MG CAPSULE PO SCH (08:53)
[2022-10-05] MEDS: LISINOPRIL 10 MG TABLET PO SCH (08:53)
[2022-10-05] MEDS: LURASIDONE HCL 80 MG TABLET PO SCH (16:59)
[2022-10-05] MEDS: DIVALPROEX SODIUM 500 MG DR TABLET PO SCH (20:04)
[2022-10-05] MEDS: MIRTAZAPINE 15 MG TABLET PO SCH (20:04)
[2022-10-05] MEDS: ATORVASTATIN CALCIUM 20 MG TABLET PO SCH (20:05)
[2022-10-05] MEDS: MELATONIN 5 MG TABLET PO SCH (20:05)
[2022-10-06] VITALS (9 sets, daily range): BP systolic 111–140; BP diastolic 62–73; PULSE 70–76; RESP 16–18; TEMP 97.3–98.4; O2SAT 98
[2022-10-06] MEDS: MetFORMIN HCL 500 MG TABLET PO SCH (06:42)
[2022-10-06] MEDS: LISINOPRIL 10 MG TABLET PO SCH (08:17)
[2022-10-06] MEDS: TRIHEXYPHENIDYL HCL 5 MG TABLET PO SCH ×3 (08:18→17:09)
[2022-10-06] MEDS: FLUoxetine HCL 20 MG CAPSULE PO SCH (08:18)
[2022-10-06] MEDS: AmLODIPine BESYLATE 5 MG TABLET PO SCH (08:18)
[2022-10-06] MEDS: DOCUSATE SODIUM 250 MG CAPSULE PO SCH ×2 (08:18→17:09)
[2022-10-06] MEDS: GABAPENTIN 400 MG CAPSULE PO SCH ×4 (08:18→20:59)
[2022-10-06] MEDS: OMEGA-3/DHA/EPA/FISH OIL 1,000 MG CAPSULE PO SCH (08:18)
[2022-10-06] MEDS: IBUPROFEN 600 MG TABLET PO PRN (08:32)
[2022-10-06] MEDS: LURASIDONE HCL 80 MG TABLET PO SCH (17:09)
[2022-10-06] MEDS: MELATONIN 5 MG TABLET PO SCH (20:59)
[2022-10-06] MEDS: ATORVASTATIN CALCIUM 20 MG TABLET PO SCH (20:59)
[2022-10-06] MEDS: MIRTAZAPINE 15 MG TABLET PO SCH (20:59)
[2022-10-06] MEDS: DIVALPROEX SODIUM 500 MG DR TABLET PO SCH (20:59)
[2022-10-07] VITALS (7 sets, daily range): BP systolic 105–111; BP diastolic 62–63; PULSE 68–76; RESP 17–18; TEMP 97.6–98.4; O2SAT 95
[2022-10-07 06:16] LABS: GLUCOMETER DEV NAME(LOC) BV2S.; GLUCOSE,POINT OF CARE 82 MG/DL (70-110)
[2022-10-07] MEDS: MetFORMIN HCL 500 MG TABLET PO SCH (06:30)
[2022-10-07] MEDS: TRIHEXYPHENIDYL HCL 5 MG TABLET PO SCH ×3 (08:43→17:06)
[2022-10-07] MEDS: DOCUSATE SODIUM 250 MG CAPSULE PO SCH ×2 (08:43→17:07)
[2022-10-07] MEDS: OMEGA-3/DHA/EPA/FISH OIL 1,000 MG CAPSULE PO SCH (08:44)
[2022-10-07] MEDS: GABAPENTIN 400 MG CAPSULE PO SCH ×4 (08:46→20:28)
[2022-10-07] MEDS: FLUoxetine HCL 20 MG CAPSULE PO SCH (08:46)
[2022-10-07] MEDS: AmLODIPine BESYLATE 5 MG TABLET PO SCH (08:46)
[2022-10-07] MEDS: LISINOPRIL 10 MG TABLET PO SCH (08:47)
[2022-10-07] MEDS: ACETAMINOPHEN 325 MG TABLET PO PRN (17:05)
[2022-10-07] MEDS: LURASIDONE HCL 80 MG TABLET PO SCH (17:06)
[2022-10-07] MEDS: ATORVASTATIN CALCIUM 20 MG TABLET PO SCH (20:28)
[2022-10-07] MEDS: MIRTAZAPINE 15 MG TABLET PO SCH (20:28)
[2022-10-07] MEDS: DIVALPROEX SODIUM 500 MG DR TABLET PO SCH (20:29)
[2022-10-07] MEDS: MELATONIN 5 MG TABLET PO SCH (20:29)
[2022-10-08] VITALS (9 sets, daily range): BP systolic 116–129; BP diastolic 60–64; PULSE 66–67; RESP 18; TEMP 97.3–98.2; O2SAT 98
[2022-10-08] MEDS: MetFORMIN HCL 500 MG TABLET PO SCH (06:30)
[2022-10-08] MEDS: GABAPENTIN 400 MG CAPSULE PO SCH ×4 (08:22→20:14)
[2022-10-08] MEDS: LISINOPRIL 10 MG TABLET PO SCH (08:22)
[2022-10-08] MEDS: TRIHEXYPHENIDYL HCL 5 MG TABLET PO SCH ×3 (08:22→16:08)
[2022-10-08] MEDS: AmLODIPine BESYLATE 5 MG TABLET PO SCH (08:23)
[2022-10-08] MEDS: DOCUSATE SODIUM 250 MG CAPSULE PO SCH ×2 (08:23→16:08)
[2022-10-08] MEDS: FLUoxetine HCL 20 MG CAPSULE PO SCH (08:23)
[2022-10-08] MEDS: OMEGA-3/DHA/EPA/FISH OIL 1,000 MG CAPSULE PO SCH (08:23)
[2022-10-08] MEDS: IBUPROFEN 600 MG TABLET PO PRN (10:56)
[2022-10-08] MEDS: LURASIDONE HCL 80 MG TABLET PO SCH (16:08)
[2022-10-08 16:46] LABS: GLUCOMETER DEV NAME(LOC) BV2S.; GLUCOSE,POINT OF CARE 84 MG/DL (70-110)
[2022-10-08] MEDS: DIVALPROEX SODIUM 500 MG DR TABLET PO SCH (20:14)
[2022-10-08] MEDS: ATORVASTATIN CALCIUM 20 MG TABLET PO SCH (20:14)
[2022-10-08] MEDS: MELATONIN 5 MG TABLET PO SCH (20:14)
[2022-10-08] MEDS: MIRTAZAPINE 15 MG TABLET PO SCH (20:14)
[2022-10-09] VITALS (7 sets, daily range): BP systolic 113–140; BP diastolic 61–66; PULSE 66–74; RESP 17–18; TEMP 97.5–98.2; O2SAT 98
[2022-10-09] MEDS: MetFORMIN HCL 500 MG TABLET PO SCH (06:40)
[2022-10-09] MEDS: LISINOPRIL 10 MG TABLET PO SCH (08:32)
[2022-10-09] MEDS: AmLODIPine BESYLATE 5 MG TABLET PO SCH (08:32)
[2022-10-09] MEDS: FLUoxetine HCL 20 MG CAPSULE PO SCH (08:32)
[2022-10-09] MEDS: OMEGA-3/DHA/EPA/FISH OIL 1,000 MG CAPSULE PO SCH (08:32)
[2022-10-09] MEDS: GABAPENTIN 400 MG CAPSULE PO SCH ×4 (08:32→20:33)
[2022-10-09] MEDS: TRIHEXYPHENIDYL HCL 5 MG TABLET PO SCH ×3 (08:32→16:39)
[2022-10-09] MEDS: DOCUSATE SODIUM 250 MG CAPSULE PO SCH ×2 (08:59→16:39)
[2022-10-09] MEDS: LURASIDONE HCL 80 MG TABLET PO SCH (16:39)
[2022-10-09 18:57] LABS: GLUCOMETER DEV NAME(LOC) BV2S.; GLUCOSE,POINT OF CARE 80 MG/DL (70-110)
[2022-10-09] MEDS: ATORVASTATIN CALCIUM 20 MG TABLET PO SCH (20:32)
[2022-10-09] MEDS: MIRTAZAPINE 15 MG TABLET PO SCH (20:33)
[2022-10-09] MEDS: DIVALPROEX SODIUM 500 MG DR TABLET PO SCH (20:33)
[2022-10-09] MEDS: MELATONIN 5 MG TABLET PO SCH (20:33)
[2022-10-10] VITALS: TEMP 98
[2022-10-10 04:00] VITALS: TEMP 97.6
[2022-10-10] MEDS: MetFORMIN HCL 500 MG TABLET PO SCH (06:45)
[2022-10-10] MEDS: TRIHEXYPHENIDYL HCL 5 MG TABLET PO SCH ×3 (08:19→16:43)
[2022-10-10] MEDS: AmLODIPine BESYLATE 5 MG TABLET PO SCH (08:19)
[2022-10-10] MEDS: FLUoxetine HCL 20 MG CAPSULE PO SCH (08:19)
[2022-10-10] MEDS: LISINOPRIL 10 MG TABLET PO SCH (08:19)
[2022-10-10] MEDS: DOCUSATE SODIUM 250 MG CAPSULE PO SCH ×2 (08:19→16:42)
[2022-10-10] MEDS: OMEGA-3/DHA/EPA/FISH OIL 1,000 MG CAPSULE PO SCH (08:19)
[2022-10-10] MEDS: GABAPENTIN 400 MG CAPSULE PO SCH ×4 (08:20→20:29)
[2022-10-10 08:38] VITALS: BP 140/79; PULSE 73; RESP 18; TEMP 97.6; O2SAT 96
[2022-10-10 11:48] LABS: GLUCOMETER DEV NAME(LOC) BV2S.; GLUCOSE,POINT OF CARE 81 MG/DL (70-110)
[2022-10-10 12:07] VITALS: TEMP 98
[2022-10-10 16:24] VITALS: TEMP 97.6
[2022-10-10] MEDS: LURASIDONE HCL 80 MG TABLET PO SCH (16:42)
[2022-10-10] MEDS: MELATONIN 5 MG TABLET PO SCH (20:29)
[2022-10-10] MEDS: MIRTAZAPINE 15 MG TABLET PO SCH (20:29)
[2022-10-10] MEDS: ATORVASTATIN CALCIUM 20 MG TABLET PO SCH (20:29)
[2022-10-10] MEDS: DIVALPROEX SODIUM 500 MG DR TABLET PO SCH (20:30)
[2022-10-10 20:33] VITALS: BP 123/80; PULSE 76; RESP 18; TEMP 98.2; O2SAT 98
[2022-10-11] VITALS (7 sets, daily range): BP systolic 113–118; BP diastolic 66–71; PULSE 68; RESP 18; TEMP 97.6–98.2; O2SAT 99
[2022-10-11] MEDS: MetFORMIN HCL 500 MG TABLET PO SCH (06:32)
[2022-10-11 07:55] LABS: GLUCOMETER DEV NAME(LOC) BV2S.; GLUCOSE,POINT OF CARE 110 MG/DL (70-110)
[2022-10-11] MEDS: LISINOPRIL 10 MG TABLET PO SCH (08:28)
[2022-10-11] MEDS: FLUoxetine HCL 20 MG CAPSULE PO SCH (08:28)
[2022-10-11] MEDS: GABAPENTIN 400 MG CAPSULE PO SCH ×2 (08:28→12:42)
[2022-10-11] MEDS: DOCUSATE SODIUM 250 MG CAPSULE PO SCH ×2 (08:28→16:59)
[2022-10-11] MEDS: OMEGA-3/DHA/EPA/FISH OIL 1,000 MG CAPSULE PO SCH (08:28)
[2022-10-11] MEDS: TRIHEXYPHENIDYL HCL 5 MG TABLET PO SCH ×3 (08:28→16:58)
[2022-10-11] MEDS: AmLODIPine BESYLATE 5 MG TABLET PO SCH (08:28)
[2022-10-11] MEDS: LURASIDONE HCL 80 MG TABLET PO SCH (16:57)
[2022-10-11] MEDS: GABAPENTIN 300 MG CAPSULE PO SCH ×2 (17:03→20:08)
[2022-10-11] MEDS: MELATONIN 5 MG TABLET PO SCH (20:08)
[2022-10-11] MEDS: ATORVASTATIN CALCIUM 20 MG TABLET PO SCH (20:08)
[2022-10-11] MEDS: MIRTAZAPINE 15 MG TABLET PO SCH (20:08)
[2022-10-12] VITALS (7 sets, daily range): BP systolic 104–140; BP diastolic 70–99; PULSE 65–80; RESP 18–20; TEMP 97.4–98.4; O2SAT 96–98
[2022-10-12] MEDS: IBUPROFEN 600 MG TABLET PO PRN (03:06)
[2022-10-12 06:17] LABS: GLUCOMETER DEV NAME(LOC) BV2S.; GLUCOSE,POINT OF CARE 94 MG/DL (70-110)
[2022-10-12] MEDS: MetFORMIN HCL 500 MG TABLET PO SCH (06:46)
[2022-10-12 07:21] LABS: GLUCOMETER DEV NAME(LOC) POC.BV; POC SARS-COV2 AG, FIA NEGATIVE (NEGATIVE)
[2022-10-12] MEDS: DOCUSATE SODIUM 250 MG CAPSULE PO SCH ×2 (09:06→17:15)
[2022-10-12] MEDS: GABAPENTIN 300 MG CAPSULE PO SCH ×4 (09:06→20:40)
[2022-10-12] MEDS: OMEGA-3/DHA/EPA/FISH OIL 1,000 MG CAPSULE PO SCH (09:06)
[2022-10-12] MEDS: AmLODIPine BESYLATE 5 MG TABLET PO SCH (09:06)
[2022-10-12] MEDS: TRIHEXYPHENIDYL HCL 5 MG TABLET PO SCH ×3 (09:07→17:15)
[2022-10-12] MEDS: FLUoxetine HCL 20 MG CAPSULE PO SCH (09:07)
[2022-10-12] MEDS: LISINOPRIL 10 MG TABLET PO SCH (09:07)
[2022-10-12] MEDS: ACETAMINOPHEN 325 MG TABLET PO PRN (09:18)
[2022-10-12] MEDS: LURASIDONE HCL 80 MG TABLET PO SCH (17:15)
[2022-10-12] MEDS: MIRTAZAPINE 15 MG TABLET PO SCH (20:41)
[2022-10-12] MEDS: MELATONIN 5 MG TABLET PO SCH (20:41)
[2022-10-12] MEDS: ATORVASTATIN CALCIUM 20 MG TABLET PO SCH (20:41)
[2022-10-13] VITALS (8 sets, daily range): BP systolic 106–158; BP diastolic 58–91; PULSE 65–76; RESP 16–18; TEMP 97.4–98.1; O2SAT 96
[2022-10-13 06:36] LABS: GLUCOMETER DEV NAME(LOC) BV2S.; GLUCOSE,POINT OF CARE 97 MG/DL (70-110)
[2022-10-13] MEDS: MetFORMIN HCL 500 MG TABLET PO SCH (06:36)
[2022-10-13] MEDS: DOCUSATE SODIUM 250 MG CAPSULE PO SCH ×2 (08:21→16:10)
[2022-10-13] MEDS: AmLODIPine BESYLATE 5 MG TABLET PO SCH (08:21)
[2022-10-13] MEDS: TRIHEXYPHENIDYL HCL 5 MG TABLET PO SCH ×3 (08:21→16:11)
[2022-10-13] MEDS: OMEGA-3/DHA/EPA/FISH OIL 1,000 MG CAPSULE PO SCH (08:21)
[2022-10-13] MEDS: FLUoxetine HCL 20 MG CAPSULE PO SCH (08:22)
[2022-10-13] MEDS: LISINOPRIL 10 MG TABLET PO SCH (08:22)
[2022-10-13] MEDS: GABAPENTIN 300 MG CAPSULE PO SCH ×4 (08:22→20:26)
[2022-10-13] MEDS: IBUPROFEN 600 MG TABLET PO PRN (10:30)
[2022-10-13] MEDS: LURASIDONE HCL 80 MG TABLET PO SCH (16:11)
[2022-10-13] MEDS: MIRTAZAPINE 15 MG TABLET PO SCH (20:28)
[2022-10-13] MEDS: ATORVASTATIN CALCIUM 20 MG TABLET PO SCH (20:28)
[2022-10-13] MEDS: MELATONIN 5 MG TABLET PO SCH (20:28)
[2022-10-14 00:43] VITALS: TEMP 98
[2022-10-14 04:19] VITALS: TEMP 97.7
[2022-10-14] MEDS: MetFORMIN HCL 500 MG TABLET PO SCH (06:20)
[2022-10-14 08:15] VITALS: BP 138/76; PULSE 83; RESP 16; TEMP 97.5; O2SAT 98
[2022-10-14] MEDS: LISINOPRIL 10 MG TABLET PO SCH (08:47)
[2022-10-14] MEDS: OMEGA-3/DHA/EPA/FISH OIL 1,000 MG CAPSULE PO SCH (08:47)
[2022-10-14] MEDS: DOCUSATE SODIUM 250 MG CAPSULE PO SCH ×2 (08:47→16:32)
[2022-10-14] MEDS: FLUoxetine HCL 20 MG CAPSULE PO SCH (08:48)
[2022-10-14] MEDS: TRIHEXYPHENIDYL HCL 5 MG TABLET PO SCH ×3 (08:48→16:32)
[2022-10-14] MEDS: AmLODIPine BESYLATE 5 MG TABLET PO SCH (08:48)
[2022-10-14] MEDS: GABAPENTIN 300 MG CAPSULE PO SCH ×4 (08:48→20:20)
[2022-10-14 09:01] LABS: GLUCOMETER DEV NAME(LOC) BV2S.; GLUCOSE,POINT OF CARE 80 MG/DL (70-110)
[2022-10-14 12:21] VITALS: TEMP 98
[2022-10-14 16:05] VITALS: TEMP 98.1
[2022-10-14] MEDS: LURASIDONE HCL 80 MG TABLET PO SCH (16:32)
[2022-10-14] MEDS: MIRTAZAPINE 15 MG TABLET PO SCH (20:20)
[2022-10-14] MEDS: MELATONIN 5 MG TABLET PO SCH (20:20)
[2022-10-14] MEDS: ATORVASTATIN CALCIUM 20 MG TABLET PO SCH (20:20)
[2022-10-14 20:21] VITALS: BP 142/94; PULSE 65; RESP 18; TEMP 98.1; O2SAT 99
[2022-10-15 00:06] VITALS: TEMP 98
[2022-10-15 04:22] VITALS: TEMP 97.9
[2022-10-15 06:16] LABS: GLUCOMETER DEV NAME(LOC) BV2S.; GLUCOSE,POINT OF CARE 94 MG/DL (70-110)
[2022-10-15] MEDS: MetFORMIN HCL 500 MG TABLET PO SCH (06:35)
[2022-10-15 08:15] VITALS: BP 119/63; PULSE 74; TEMP 96.3; O2SAT 98
[2022-10-15] MEDS: TRIHEXYPHENIDYL HCL 5 MG TABLET PO SCH ×3 (09:13→17:03)
[2022-10-15] MEDS: AmLODIPine BESYLATE 5 MG TABLET PO SCH (09:13)
[2022-10-15] MEDS: LISINOPRIL 10 MG TABLET PO SCH (09:14)
[2022-10-15] MEDS: FLUoxetine HCL 20 MG CAPSULE PO SCH (09:14)
[2022-10-15] MEDS: DOCUSATE SODIUM 250 MG CAPSULE PO SCH ×2 (09:14→17:03)
[2022-10-15] MEDS: GABAPENTIN 300 MG CAPSULE PO SCH ×4 (09:14→22:56)
[2022-10-15] MEDS: OMEGA-3/DHA/EPA/FISH OIL 1,000 MG CAPSULE PO SCH (09:14)
[2022-10-15 12:03] VITALS: TEMP 95.5
[2022-10-15 16:13] VITALS: TEMP 98
[2022-10-15] MEDS: LURASIDONE HCL 80 MG TABLET PO SCH (17:03)
[2022-10-15 20:18] VITALS: BP 114/69; PULSE 70; RESP 18; TEMP 98.2; O2SAT 97
[2022-10-15] MEDS: MELATONIN 5 MG TABLET PO SCH (22:29)
[2022-10-15] MEDS: MIRTAZAPINE 15 MG TABLET PO SCH (22:29)
[2022-10-15] MEDS: ATORVASTATIN CALCIUM 20 MG TABLET PO SCH (22:29)
[2022-10-16] VITALS (7 sets, daily range): BP systolic 122–138; BP diastolic 60–70; PULSE 61–65; RESP 17–19; TEMP 97.5–98.4; O2SAT 97
[2022-10-16] MEDS: MetFORMIN HCL 500 MG TABLET PO SCH (06:32)
[2022-10-16 06:37] LABS: GLUCOMETER DEV NAME(LOC) BV2S.; GLUCOSE,POINT OF CARE 108 MG/DL (70-110)
[2022-10-16] MEDS: LISINOPRIL 10 MG TABLET PO SCH (08:29)
[2022-10-16] MEDS: FLUoxetine HCL 20 MG CAPSULE PO SCH (08:30)
[2022-10-16] MEDS: DOCUSATE SODIUM 250 MG CAPSULE PO SCH ×2 (08:30→16:46)
[2022-10-16] MEDS: AmLODIPine BESYLATE 5 MG TABLET PO SCH (08:30)
[2022-10-16] MEDS: GABAPENTIN 300 MG CAPSULE PO SCH ×4 (08:30→20:36)
[2022-10-16] MEDS: OMEGA-3/DHA/EPA/FISH OIL 1,000 MG CAPSULE PO SCH (08:30)
[2022-10-16] MEDS: TRIHEXYPHENIDYL HCL 5 MG TABLET PO SCH ×3 (08:30→16:46)
[2022-10-16] MEDS: LURASIDONE HCL 80 MG TABLET PO SCH (16:46)
[2022-10-16] MEDS: MIRTAZAPINE 15 MG TABLET PO SCH (20:36)
[2022-10-16] MEDS: ATORVASTATIN CALCIUM 20 MG TABLET PO SCH (20:36)
[2022-10-16] MEDS: MELATONIN 5 MG TABLET PO SCH (20:36)
[2022-10-17] VITALS (7 sets, daily range): BP systolic 110; BP diastolic 64; PULSE 73; RESP 16–18; TEMP 97.6–98.4
[2022-10-17 06:21] LABS: GLUCOMETER DEV NAME(LOC) BV2S.; GLUCOSE,POINT OF CARE 103 MG/DL (70-110)
[2022-10-17] MEDS: MetFORMIN HCL 500 MG TABLET PO SCH (06:51)
[2022-10-17] MEDS: TRIHEXYPHENIDYL HCL 5 MG TABLET PO SCH ×3 (08:40→17:14)
[2022-10-17] MEDS: GABAPENTIN 300 MG CAPSULE PO SCH ×4 (08:40→20:38)
[2022-10-17] MEDS: OMEGA-3/DHA/EPA/FISH OIL 1,000 MG CAPSULE PO SCH (08:40)
[2022-10-17] MEDS: DOCUSATE SODIUM 250 MG CAPSULE PO SCH ×2 (08:41→17:14)
[2022-10-17] MEDS: LISINOPRIL 10 MG TABLET PO SCH (08:41)
[2022-10-17] MEDS: FLUoxetine HCL 20 MG CAPSULE PO SCH (08:41)
[2022-10-17] MEDS: AmLODIPine BESYLATE 5 MG TABLET PO SCH (08:41)
[2022-10-17] MEDS: LURASIDONE HCL 80 MG TABLET PO SCH (17:14)
[2022-10-17] MEDS: ATORVASTATIN CALCIUM 20 MG TABLET PO SCH (20:38)
[2022-10-17] MEDS: MELATONIN 5 MG TABLET PO SCH (20:38)
[2022-10-17] MEDS: MIRTAZAPINE 30 MG TABLET PO SCH (20:38)
[2022-10-18 00:35] VITALS: TEMP 97.7
[2022-10-18 05:23] VITALS: TEMP 97.6
[2022-10-18] MEDS: MetFORMIN HCL 500 MG TABLET PO SCH (06:37)
[2022-10-18 06:41] LABS: GLUCOMETER DEV NAME(LOC) BV2S.; GLUCOSE,POINT OF CARE 86 MG/DL (70-110)
[2022-10-18 08:01] LABS: BASOPHILS % (AUTO) 0.3 % (0.0-2.0); HEMATOCRIT 37.2 % (36-46); HEMOGLOBIN 12.9 g/dL (12.0-16.0); LYMPHOCYTES # (AUTO) 1.4 K/uL (1.0-4.8); MEAN CORPUSCULAR HEMOGLOBIN 34.1 pg (26.0-34.0); MEAN CORPUSCULAR HGB CONC 34.7 G/dL (31.0-37.0); MEAN CORPUSCULAR VOLUME 98 fL (80-100); MONOCYTES # (AUTO) 0.6 K/uL (0.1-1.0); NEUTROPHILS # (AUTO) 2.5 K/uL (1.8-7.7); NEUTROPHILS % (AUTO) 53.7 % (40.0-70.0); PLATELET COUNT (AUTO) 208 K/uL (150-450); RED BLOOD CELL COUNT(AUTO) 3.78 MIL/uL (4.00-5.20); RED CELL DISTRIBUTION WIDTH 13.3 % (11.5-14.5); WHITE BLOOD COUNT (AUTO) 4.7 K/uL (4.5-11.0)
[2022-10-18 08:31] LABS: ALANINE AMINOTRANSFERASE 17 U/L (12-78); ALBUMIN 3.3 g/dL (3.4-5.0); ALKALINE PHOSPHATASE 71 U/L (46-116); ANION GAP 9 mmol/L (8-16); ASPARTATE AMINOTRANSFERASE 12 U/L (15-37); BILIRUBIN,TOTAL 0.2 mg/dL (0.1-1.0); CALCIUM, TOTAL 9.1 mg/dL (8.8-10.5); CARBON DIOXIDE 29 mmol/L (22-29); CHLORIDE 103 mmol/L (98-107); CREATININE 0.75 mg/dL (0.60-1.30); GLOMERULAR FILTR. RATE CALC > 60 mL/min (>60); GLUCOSE,RANDOM 88 mg/dL (70-110); POTASSIUM 4.1 mmol/L (3.5-5.1); SODIUM SERUM 141 mmol/L (136-145); TOTAL PROTEIN, SERUM 6.8 g/dL (6.4-8.2); UREA NITROGEN, BLOOD 19 mg/dL (7-18)
[2022-10-18 08:32] VITALS: BP 137/74; PULSE 79; RESP 18; TEMP 98; O2SAT 99
[2022-10-18] MEDS: OMEGA-3/DHA/EPA/FISH OIL 1,000 MG CAPSULE PO SCH (08:50)
[2022-10-18] MEDS: TRIHEXYPHENIDYL HCL 5 MG TABLET PO SCH ×3 (08:50→17:07)
[2022-10-18] MEDS: GABAPENTIN 300 MG CAPSULE PO SCH ×4 (08:50→20:08)
[2022-10-18] MEDS: LISINOPRIL 10 MG TABLET PO SCH (08:50)
[2022-10-18] MEDS: FLUoxetine HCL 20 MG CAPSULE PO SCH (08:50)
[2022-10-18] MEDS: DOCUSATE SODIUM 250 MG CAPSULE PO SCH ×2 (08:50→17:07)
[2022-10-18] MEDS: AmLODIPine BESYLATE 5 MG TABLET PO SCH (08:50)
[2022-10-18 09:41] LABS: HEMOGLOBIN A1C 5.4 % (3.8-5.6)
[2022-10-18 12:49] VITALS: TEMP 98
[2022-10-18] MEDS: LURASIDONE HCL 80 MG TABLET PO SCH (17:08)
[2022-10-18 17:39] VITALS: TEMP 97.8
[2022-10-18 20:00] VITALS: BP 129/79; PULSE 98; RESP 18; TEMP 97.4; O2SAT 100
[2022-10-18] MEDS: MELATONIN 5 MG TABLET PO SCH (20:08)
[2022-10-18] MEDS: ATORVASTATIN CALCIUM 20 MG TABLET PO SCH (20:08)
[2022-10-18] MEDS: MIRTAZAPINE 30 MG TABLET PO SCH (20:09)
[2022-10-19 00:14] VITALS: TEMP 97.8
[2022-10-19 04:07] VITALS: TEMP 97.9
[2022-10-19] MEDS: TRIHEXYPHENIDYL HCL 5 MG TABLET PO SCH ×3 (08:27→16:59)
[2022-10-19] MEDS: LISINOPRIL 10 MG TABLET PO SCH (08:28)
[2022-10-19] MEDS: OMEGA-3/DHA/EPA/FISH OIL 1,000 MG CAPSULE PO SCH (08:28)
[2022-10-19] MEDS: FLUoxetine HCL 20 MG CAPSULE PO SCH (08:28)
[2022-10-19] MEDS: AmLODIPine BESYLATE 5 MG TABLET PO SCH (08:28)
[2022-10-19] MEDS: DOCUSATE SODIUM 250 MG CAPSULE PO SCH ×2 (08:28→16:59)
[2022-10-19] MEDS: GABAPENTIN 300 MG CAPSULE PO SCH ×4 (08:28→20:15)
[2022-10-19 08:36] VITALS: BP 152/75; PULSE 90; RESP 17; TEMP 97.3; O2SAT 97
[2022-10-19 11:06] LABS: GLUCOMETER DEV NAME(LOC) POC.BV; POC SARS-COV2 AG, FIA NEGATIVE (NEGATIVE)
[2022-10-19 12:20] VITALS: TEMP 98
[2022-10-19 16:06] VITALS: TEMP 98
[2022-10-19] MEDS: LURASIDONE HCL 80 MG TABLET PO SCH (16:59)
[2022-10-19 20:04] VITALS: BP 130/80; PULSE 71; RESP 16; TEMP 98; O2SAT 98
[2022-10-19] MEDS: MIRTAZAPINE 30 MG TABLET PO SCH (20:15)
[2022-10-19] MEDS: ATORVASTATIN CALCIUM 20 MG TABLET PO SCH (20:15)
[2022-10-19] MEDS: MELATONIN 5 MG TABLET PO SCH (20:15)
[2022-10-20] VITALS (8 sets, daily range): BP systolic 127–146; BP diastolic 76–99; PULSE 73–77; RESP 18; TEMP 97–97.5; O2SAT 100
[2022-10-20] MEDS: TRIHEXYPHENIDYL HCL 5 MG TABLET PO SCH ×3 (08:36→16:40)
[2022-10-20] MEDS: OMEGA-3/DHA/EPA/FISH OIL 1,000 MG CAPSULE PO SCH (08:36)
[2022-10-20] MEDS: GABAPENTIN 300 MG CAPSULE PO SCH ×4 (08:36→21:18)
[2022-10-20] MEDS: FLUoxetine HCL 20 MG CAPSULE PO SCH (08:36)
[2022-10-20] MEDS: LISINOPRIL 10 MG TABLET PO SCH (08:36)
[2022-10-20] MEDS: AmLODIPine BESYLATE 5 MG TABLET PO SCH (08:36)
[2022-10-20] MEDS: DOCUSATE SODIUM 250 MG CAPSULE PO SCH ×2 (08:36→16:40)
[2022-10-20] MEDS: LURASIDONE HCL 80 MG TABLET PO SCH (16:40)
[2022-10-20] MEDS: MIRTAZAPINE 30 MG TABLET PO SCH (21:18)
[2022-10-20] MEDS: ATORVASTATIN CALCIUM 20 MG TABLET PO SCH (21:18)
[2022-10-20] MEDS: MELATONIN 5 MG TABLET PO SCH (21:18)
[2022-10-21] VITALS (7 sets, daily range): BP systolic 138–144; BP diastolic 82–84; PULSE 70–78; RESP 18; TEMP 96.6–97.9; O2SAT 98–99
[2022-10-21] MEDS: FLUoxetine HCL 20 MG CAPSULE PO SCH (09:01)
[2022-10-21] MEDS: AmLODIPine BESYLATE 5 MG TABLET PO SCH (09:01)
[2022-10-21] MEDS: DOCUSATE SODIUM 250 MG CAPSULE PO SCH ×2 (09:01→16:45)
[2022-10-21] MEDS: TRIHEXYPHENIDYL HCL 5 MG TABLET PO SCH ×3 (09:01→16:44)
[2022-10-21] MEDS: GABAPENTIN 300 MG CAPSULE PO SCH ×4 (09:01→20:40)
[2022-10-21] MEDS: LISINOPRIL 10 MG TABLET PO SCH (09:01)
[2022-10-21] MEDS: OMEGA-3/DHA/EPA/FISH OIL 1,000 MG CAPSULE PO SCH (09:01)
[2022-10-21] MEDS: LURASIDONE HCL 80 MG TABLET PO SCH (16:44)
[2022-10-21] MEDS: IBUPROFEN 600 MG TABLET PO PRN (18:22)
[2022-10-21] MEDS: MIRTAZAPINE 30 MG TABLET PO SCH (20:40)
[2022-10-21] MEDS: MELATONIN 5 MG TABLET PO SCH (20:40)
[2022-10-21] MEDS: ATORVASTATIN CALCIUM 20 MG TABLET PO SCH (20:40)
[2022-10-22] VITALS (7 sets, daily range): BP systolic 145–176; BP diastolic 80–81; PULSE 72–74; RESP 18–19; TEMP 97–98.5; O2SAT 96–98
[2022-10-22] MEDS: OMEGA-3/DHA/EPA/FISH OIL 1,000 MG CAPSULE PO SCH (08:16)
[2022-10-22] MEDS: AmLODIPine BESYLATE 5 MG TABLET PO SCH (08:16)
[2022-10-22] MEDS: FLUoxetine HCL 20 MG CAPSULE PO SCH (08:16)
[2022-10-22] MEDS: GABAPENTIN 300 MG CAPSULE PO SCH ×4 (08:16→20:36)
[2022-10-22] MEDS: DOCUSATE SODIUM 250 MG CAPSULE PO SCH ×2 (08:16→17:06)
[2022-10-22] MEDS: TRIHEXYPHENIDYL HCL 5 MG TABLET PO SCH ×3 (08:16→17:06)
[2022-10-22] MEDS: LISINOPRIL 10 MG TABLET PO SCH (08:17)
[2022-10-22] MEDS: LURASIDONE HCL 80 MG TABLET PO SCH (17:06)
[2022-10-22] MEDS: MIRTAZAPINE 30 MG TABLET PO SCH (20:36)
[2022-10-22] MEDS: MELATONIN 5 MG TABLET PO SCH (20:37)
[2022-10-22] MEDS: ATORVASTATIN CALCIUM 20 MG TABLET PO SCH (20:37)
[2022-10-23] VITALS (8 sets, daily range): BP systolic 118–124; BP diastolic 71–81; PULSE 69–75; RESP 17–19; TEMP 97.1–98.8; O2SAT 95
[2022-10-23] MEDS: TRIHEXYPHENIDYL HCL 5 MG TABLET PO SCH ×3 (08:33→16:50)
[2022-10-23] MEDS: DOCUSATE SODIUM 250 MG CAPSULE PO SCH ×2 (08:33→16:50)
[2022-10-23] MEDS: GABAPENTIN 300 MG CAPSULE PO SCH ×4 (08:34→20:38)
[2022-10-23] MEDS: FLUoxetine HCL 20 MG CAPSULE PO SCH (08:34)
[2022-10-23] MEDS: LISINOPRIL 10 MG TABLET PO SCH (08:34)
[2022-10-23] MEDS: AmLODIPine BESYLATE 5 MG TABLET PO SCH (08:34)
[2022-10-23] MEDS: OMEGA-3/DHA/EPA/FISH OIL 1,000 MG CAPSULE PO SCH (08:34)
[2022-10-23] MEDS: LURASIDONE HCL 80 MG TABLET PO SCH (16:50)
[2022-10-23] MEDS: MIRTAZAPINE 30 MG TABLET PO SCH (20:38)
[2022-10-23] MEDS: ATORVASTATIN CALCIUM 20 MG TABLET PO SCH (20:38)
[2022-10-23] MEDS: MELATONIN 5 MG TABLET PO SCH (20:38)
[2022-10-24] VITALS (8 sets, daily range): BP systolic 130–142; BP diastolic 60–78; PULSE 64–75; RESP 17–18; TEMP 97.6–98.6; O2SAT 96–100
[2022-10-24] MEDS: FLUoxetine HCL 20 MG CAPSULE PO SCH (08:37)
[2022-10-24] MEDS: GABAPENTIN 300 MG CAPSULE PO SCH ×4 (08:37→20:23)
[2022-10-24] MEDS: DOCUSATE SODIUM 250 MG CAPSULE PO SCH ×2 (08:37→17:04)
[2022-10-24] MEDS: AmLODIPine BESYLATE 5 MG TABLET PO SCH (08:37)
[2022-10-24] MEDS: OMEGA-3/DHA/EPA/FISH OIL 1,000 MG CAPSULE PO SCH (08:37)
[2022-10-24] MEDS: LISINOPRIL 10 MG TABLET PO SCH (08:37)
[2022-10-24] MEDS: TRIHEXYPHENIDYL HCL 5 MG TABLET PO SCH ×3 (08:37→17:04)
[2022-10-24] MEDS: IBUPROFEN 600 MG TABLET PO PRN (14:02)
[2022-10-24] MEDS: LURASIDONE HCL 80 MG TABLET PO SCH (17:03)
[2022-10-24] MEDS: MELATONIN 5 MG TABLET PO SCH (20:23)
[2022-10-24] MEDS: ATORVASTATIN CALCIUM 20 MG TABLET PO SCH (20:23)
[2022-10-24] MEDS: MIRTAZAPINE 30 MG TABLET PO SCH (20:23)
[2022-10-25] VITALS (12 sets, daily range): BP systolic 132–139; BP diastolic 66–70; PULSE 65–66; RESP 17–19; TEMP 97.7–98.4; O2SAT 100
[2022-10-25] MEDS: TRIHEXYPHENIDYL HCL 5 MG TABLET PO SCH ×3 (08:53→17:20)
[2022-10-25] MEDS: GABAPENTIN 300 MG CAPSULE PO SCH ×4 (08:53→20:33)
[2022-10-25] MEDS: DOCUSATE SODIUM 250 MG CAPSULE PO SCH ×2 (08:53→17:21)
[2022-10-25] MEDS: FLUoxetine HCL 20 MG CAPSULE PO SCH (08:53)
[2022-10-25] MEDS: OMEGA-3/DHA/EPA/FISH OIL 1,000 MG CAPSULE PO SCH (08:53)
[2022-10-25] MEDS: AmLODIPine BESYLATE 5 MG TABLET PO SCH (08:53)
[2022-10-25] MEDS: LISINOPRIL 10 MG TABLET PO SCH (08:54)
[2022-10-25] MEDS: IBUPROFEN 600 MG TABLET PO PRN ×2 (11:07→18:22)
[2022-10-25] MEDS: LURASIDONE HCL 80 MG TABLET PO SCH (17:20)
[2022-10-25] MEDS: ATORVASTATIN CALCIUM 20 MG TABLET PO SCH (20:33)
[2022-10-25] MEDS: MIRTAZAPINE 30 MG TABLET PO SCH (20:34)
[2022-10-25] MEDS: MELATONIN 5 MG TABLET PO SCH (20:34)
[2022-10-26] VITALS (9 sets, daily range): BP systolic 117–129; BP diastolic 60–68; PULSE 69–74; RESP 16–18; TEMP 97.4–98.1; O2SAT 100
[2022-10-26] MEDS: TRIHEXYPHENIDYL HCL 5 MG TABLET PO SCH ×3 (08:26→16:53)
[2022-10-26] MEDS: OMEGA-3/DHA/EPA/FISH OIL 1,000 MG CAPSULE PO SCH (08:26)
[2022-10-26] MEDS: GABAPENTIN 300 MG CAPSULE PO SCH ×4 (08:26→20:09)
[2022-10-26] MEDS: FLUoxetine HCL 20 MG CAPSULE PO SCH (08:26)
[2022-10-26] MEDS: AmLODIPine BESYLATE 5 MG TABLET PO SCH (08:26)
[2022-10-26] MEDS: DOCUSATE SODIUM 250 MG CAPSULE PO SCH ×2 (08:26→16:53)
[2022-10-26] MEDS: LISINOPRIL 10 MG TABLET PO SCH (08:28)
[2022-10-26] MEDS: IBUPROFEN 600 MG TABLET PO PRN (12:22)
[2022-10-26 16:30] LABS: GLUCOMETER DEV NAME(LOC) POC.BV; POC SARS-COV2 AG, FIA NEGATIVE (NEGATIVE)
[2022-10-26] MEDS: LURASIDONE HCL 80 MG TABLET PO SCH (16:53)
[2022-10-26] MEDS: ATORVASTATIN CALCIUM 20 MG TABLET PO SCH (20:08)
[2022-10-26] MEDS: MELATONIN 5 MG TABLET PO SCH (20:09)
[2022-10-26] MEDS: MIRTAZAPINE 30 MG TABLET PO SCH (20:09)
[2022-10-27] VITALS (10 sets, daily range): BP systolic 128–139; BP diastolic 66–87; PULSE 75–78; RESP 16–18; TEMP 97–98; O2SAT 97–98
[2022-10-27] MEDS: TRIHEXYPHENIDYL HCL 5 MG TABLET PO SCH ×3 (08:10→16:55)
[2022-10-27] MEDS: DOCUSATE SODIUM 250 MG CAPSULE PO SCH ×2 (08:10→16:55)
[2022-10-27] MEDS: AmLODIPine BESYLATE 5 MG TABLET PO SCH (08:10)
[2022-10-27] MEDS: LISINOPRIL 10 MG TABLET PO SCH (08:10)
[2022-10-27] MEDS: GABAPENTIN 300 MG CAPSULE PO SCH ×4 (08:11→20:31)
[2022-10-27] MEDS: OMEGA-3/DHA/EPA/FISH OIL 1,000 MG CAPSULE PO SCH (08:11)
[2022-10-27] MEDS: FLUoxetine HCL 20 MG CAPSULE PO SCH (08:20)
[2022-10-27] MEDS: IBUPROFEN 600 MG TABLET PO PRN ×2 (10:17→18:54)
[2022-10-27] MEDS: LURASIDONE HCL 80 MG TABLET PO SCH (16:56)
[2022-10-27] MEDS: MIRTAZAPINE 30 MG TABLET PO SCH (20:31)
[2022-10-27] MEDS: ATORVASTATIN CALCIUM 20 MG TABLET PO SCH (20:31)
[2022-10-27] MEDS: MELATONIN 5 MG TABLET PO SCH (20:31)
[2022-10-28] VITALS (10 sets, daily range): BP systolic 140–154; BP diastolic 82–84; PULSE 87–90; RESP 17–18; TEMP 97.5–98.2; O2SAT 97–98
[2022-10-28] MEDS: IBUPROFEN 600 MG TABLET PO PRN (07:52)
[2022-10-28] MEDS: OMEGA-3/DHA/EPA/FISH OIL 1,000 MG CAPSULE PO SCH (08:00)
[2022-10-28] MEDS: AmLODIPine BESYLATE 5 MG TABLET PO SCH (08:00)
[2022-10-28] MEDS: DOCUSATE SODIUM 250 MG CAPSULE PO SCH ×2 (08:00→16:28)
[2022-10-28] MEDS: TRIHEXYPHENIDYL HCL 5 MG TABLET PO SCH ×3 (08:00→16:28)
[2022-10-28] MEDS: GABAPENTIN 300 MG CAPSULE PO SCH ×4 (08:00→21:00)
[2022-10-28] MEDS: FLUoxetine HCL 20 MG CAPSULE PO SCH (08:00)
[2022-10-28] MEDS: LISINOPRIL 10 MG TABLET PO SCH (08:00)
[2022-10-28] MEDS: LURASIDONE HCL 80 MG TABLET PO SCH (16:28)
[2022-10-28] MEDS: MIRTAZAPINE 30 MG TABLET PO SCH (21:00)
[2022-10-28] MEDS: ATORVASTATIN CALCIUM 20 MG TABLET PO SCH (21:01)
[2022-10-28] MEDS: MELATONIN 5 MG TABLET PO SCH (21:01)
[2022-10-29] VITALS (8 sets, daily range): BP systolic 120–122; BP diastolic 60–69; PULSE 83–90; RESP 19; TEMP 97.5–98.6; O2SAT 95–97
[2022-10-29] MEDS: OMEGA-3/DHA/EPA/FISH OIL 1,000 MG CAPSULE PO SCH (08:45)
[2022-10-29] MEDS: LISINOPRIL 10 MG TABLET PO SCH (08:46)
[2022-10-29] MEDS: AmLODIPine BESYLATE 5 MG TABLET PO SCH (08:46)
[2022-10-29] MEDS: FLUoxetine HCL 20 MG CAPSULE PO SCH (08:46)
[2022-10-29] MEDS: TRIHEXYPHENIDYL HCL 5 MG TABLET PO SCH ×3 (08:46→17:18)
[2022-10-29] MEDS: GABAPENTIN 300 MG CAPSULE PO SCH ×4 (08:46→20:30)
[2022-10-29] MEDS: DOCUSATE SODIUM 250 MG CAPSULE PO SCH ×2 (08:46→17:18)
[2022-10-29] MEDS: LURASIDONE HCL 80 MG TABLET PO SCH (17:18)
[2022-10-29] MEDS: ATORVASTATIN CALCIUM 20 MG TABLET PO SCH (20:29)
[2022-10-29] MEDS: MIRTAZAPINE 30 MG TABLET PO SCH (20:29)
[2022-10-29] MEDS: MELATONIN 5 MG TABLET PO SCH (20:30)
[2022-10-30] VITALS (7 sets, daily range): BP systolic 127; BP diastolic 67–69; PULSE 62–64; RESP 16–19; TEMP 97.8–98.8; O2SAT 99
[2022-10-30] MEDS: FLUoxetine HCL 20 MG CAPSULE PO SCH (08:19)
[2022-10-30] MEDS: TRIHEXYPHENIDYL HCL 5 MG TABLET PO SCH ×3 (08:19→16:41)
[2022-10-30] MEDS: LISINOPRIL 10 MG TABLET PO SCH (08:19)
[2022-10-30] MEDS: GABAPENTIN 300 MG CAPSULE PO SCH ×4 (08:19→20:31)
[2022-10-30] MEDS: OMEGA-3/DHA/EPA/FISH OIL 1,000 MG CAPSULE PO SCH (08:19)
[2022-10-30] MEDS: DOCUSATE SODIUM 250 MG CAPSULE PO SCH ×2 (08:19→16:41)
[2022-10-30] MEDS: AmLODIPine BESYLATE 5 MG TABLET PO SCH (08:19)
[2022-10-30] MEDS: LURASIDONE HCL 80 MG TABLET PO SCH (16:41)
[2022-10-30] MEDS: MELATONIN 5 MG TABLET PO SCH (20:31)
[2022-10-30] MEDS: MIRTAZAPINE 30 MG TABLET PO SCH (20:31)
[2022-10-30] MEDS: ATORVASTATIN CALCIUM 20 MG TABLET PO SCH (20:31)
[2022-10-31] VITALS (7 sets, daily range): BP systolic 119–120; BP diastolic 70–72; PULSE 80–85; RESP 17–18; TEMP 97.3–98.1
[2022-10-31] MEDS: TRIHEXYPHENIDYL HCL 5 MG TABLET PO SCH ×3 (08:38→17:16)
[2022-10-31] MEDS: FLUoxetine HCL 20 MG CAPSULE PO SCH (08:39)
[2022-10-31] MEDS: OMEGA-3/DHA/EPA/FISH OIL 1,000 MG CAPSULE PO SCH (08:39)
[2022-10-31] MEDS: AmLODIPine BESYLATE 5 MG TABLET PO SCH (08:39)
[2022-10-31] MEDS: LISINOPRIL 10 MG TABLET PO SCH (08:39)
[2022-10-31] MEDS: GABAPENTIN 300 MG CAPSULE PO SCH ×4 (08:39→20:16)
[2022-10-31] MEDS: DOCUSATE SODIUM 250 MG CAPSULE PO SCH ×2 (08:39→17:17)
[2022-10-31] MEDS: LURASIDONE HCL 80 MG TABLET PO SCH (17:16)
[2022-10-31] MEDS: ATORVASTATIN CALCIUM 20 MG TABLET PO SCH (20:16)
[2022-10-31] MEDS: MIRTAZAPINE 30 MG TABLET PO SCH (20:16)
[2022-10-31] MEDS: MELATONIN 5 MG TABLET PO SCH (20:16)
[2022-11-01] VITALS (9 sets, daily range): BP systolic 112–135; BP diastolic 60–78; PULSE 70–83; RESP 17–18; TEMP 97.5–98.6; O2SAT 96–99
[2022-11-01] MEDS: LISINOPRIL 10 MG TABLET PO SCH (08:49)
[2022-11-01] MEDS: GABAPENTIN 300 MG CAPSULE PO SCH ×4 (08:50→20:33)
[2022-11-01] MEDS: FLUoxetine HCL 20 MG CAPSULE PO SCH (08:50)
[2022-11-01] MEDS: DOCUSATE SODIUM 250 MG CAPSULE PO SCH ×2 (08:50→17:08)
[2022-11-01] MEDS: AmLODIPine BESYLATE 5 MG TABLET PO SCH (08:50)
[2022-11-01] MEDS: OMEGA-3/DHA/EPA/FISH OIL 1,000 MG CAPSULE PO SCH (08:50)
[2022-11-01] MEDS: TRIHEXYPHENIDYL HCL 5 MG TABLET PO SCH ×3 (08:50→17:08)
[2022-11-01 09:11] LABS: GLUCOMETER DEV NAME(LOC) POC.BV; POC SARS-COV2 AG, FIA NEGATIVE (NEGATIVE)
[2022-11-01] MEDS: LURASIDONE HCL 80 MG TABLET PO SCH (17:08)
[2022-11-01] MEDS: IBUPROFEN 600 MG TABLET PO PRN (18:40)
[2022-11-01] MEDS: MIRTAZAPINE 30 MG TABLET PO SCH (20:32)
[2022-11-01] MEDS: ATORVASTATIN CALCIUM 20 MG TABLET PO SCH (20:32)
[2022-11-01] MEDS: MELATONIN 5 MG TABLET PO SCH (20:33)
[2022-11-02] VITALS (7 sets, daily range): BP systolic 115–125; BP diastolic 60–84; PULSE 69–90; RESP 18; TEMP 97.6–98.3; O2SAT 96–100
[2022-11-02] MEDS: FLUoxetine HCL 20 MG CAPSULE PO SCH (08:58)
[2022-11-02] MEDS: OMEGA-3/DHA/EPA/FISH OIL 1,000 MG CAPSULE PO SCH (08:58)
[2022-11-02] MEDS: TRIHEXYPHENIDYL HCL 5 MG TABLET PO SCH ×3 (08:58→16:55)
[2022-11-02] MEDS: DOCUSATE SODIUM 250 MG CAPSULE PO SCH ×2 (08:58→16:54)
[2022-11-02] MEDS: LISINOPRIL 10 MG TABLET PO SCH (08:58)
[2022-11-02] MEDS: GABAPENTIN 300 MG CAPSULE PO SCH ×4 (08:59→20:16)
[2022-11-02] MEDS: AmLODIPine BESYLATE 5 MG TABLET PO SCH (08:59)
[2022-11-02] MEDS: LURASIDONE HCL 80 MG TABLET PO SCH (16:55)
[2022-11-02] MEDS: MIRTAZAPINE 30 MG TABLET PO SCH (20:16)
[2022-11-02] MEDS: ATORVASTATIN CALCIUM 20 MG TABLET PO SCH (20:16)
[2022-11-02] MEDS: MELATONIN 5 MG TABLET PO SCH (20:16)
[2022-11-03] VITALS (8 sets, daily range): BP systolic 116–153; BP diastolic 66–79; PULSE 72–90; RESP 16–19; TEMP 97.6–98.2; O2SAT 96–97
[2022-11-03] MEDS: LISINOPRIL 10 MG TABLET PO SCH (08:26)
[2022-11-03] MEDS: OMEGA-3/DHA/EPA/FISH OIL 1,000 MG CAPSULE PO SCH (08:26)
[2022-11-03] MEDS: DOCUSATE SODIUM 250 MG CAPSULE PO SCH ×2 (08:26→16:59)
[2022-11-03] MEDS: TRIHEXYPHENIDYL HCL 5 MG TABLET PO SCH ×3 (08:26→16:59)
[2022-11-03] MEDS: GABAPENTIN 300 MG CAPSULE PO SCH ×4 (08:27→20:13)
[2022-11-03] MEDS: FLUoxetine HCL 20 MG CAPSULE PO SCH (08:27)
[2022-11-03] MEDS: AmLODIPine BESYLATE 5 MG TABLET PO SCH (08:27)
[2022-11-03] MEDS: LURASIDONE HCL 80 MG TABLET PO SCH (16:59)
[2022-11-03] MEDS: MELATONIN 5 MG TABLET PO SCH (20:13)
[2022-11-03] MEDS: MIRTAZAPINE 30 MG TABLET PO SCH (20:13)
[2022-11-03] MEDS: ATORVASTATIN CALCIUM 20 MG TABLET PO SCH (20:13)
[2022-11-04] VITALS (7 sets, daily range): BP systolic 100–138; BP diastolic 69–77; PULSE 54–97; RESP 16–18; TEMP 97.2–98.3; O2SAT 97–98
[2022-11-04] MEDS: FLUoxetine HCL 20 MG CAPSULE PO SCH (08:20)
[2022-11-04] MEDS: OMEGA-3/DHA/EPA/FISH OIL 1,000 MG CAPSULE PO SCH (08:22)
[2022-11-04] MEDS: IBUPROFEN 600 MG TABLET PO PRN (08:22)
[2022-11-04] MEDS: GABAPENTIN 300 MG CAPSULE PO SCH ×4 (08:23→20:09)
[2022-11-04] MEDS: LISINOPRIL 10 MG TABLET PO SCH (08:23)
[2022-11-04] MEDS: DOCUSATE SODIUM 250 MG CAPSULE PO SCH ×2 (08:23→16:40)
[2022-11-04] MEDS: TRIHEXYPHENIDYL HCL 5 MG TABLET PO SCH ×3 (09:05→16:40)
[2022-11-04] MEDS: AmLODIPine BESYLATE 5 MG TABLET PO SCH (09:05)
[2022-11-04] MEDS: LURASIDONE HCL 80 MG TABLET PO SCH (16:40)
[2022-11-04] MEDS: ATORVASTATIN CALCIUM 20 MG TABLET PO SCH (20:08)
[2022-11-04] MEDS: MELATONIN 5 MG TABLET PO SCH (20:09)
[2022-11-04] MEDS: MIRTAZAPINE 30 MG TABLET PO SCH (20:11)
[2022-11-05 00:13] VITALS: TEMP 97.8
[2022-11-05 04:11] VITALS: TEMP 97.7
[2022-11-05] MEDS: FLUoxetine HCL 20 MG CAPSULE PO SCH (08:27)
[2022-11-05] MEDS: AmLODIPine BESYLATE 5 MG TABLET PO SCH (08:27)
[2022-11-05] MEDS: LISINOPRIL 10 MG TABLET PO SCH (08:27)
[2022-11-05] MEDS: GABAPENTIN 300 MG CAPSULE PO SCH ×4 (08:27→20:36)
[2022-11-05] MEDS: TRIHEXYPHENIDYL HCL 5 MG TABLET PO SCH ×3 (08:27→16:06)
[2022-11-05] MEDS: OMEGA-3/DHA/EPA/FISH OIL 1,000 MG CAPSULE PO SCH (08:28)
[2022-11-05] MEDS: DOCUSATE SODIUM 250 MG CAPSULE PO SCH ×2 (08:28→16:06)
[2022-11-05 08:48] VITALS: BP 137/65; PULSE 90; RESP 18; TEMP 97.6; O2SAT 95
[2022-11-05 12:07] VITALS: TEMP 97.9
[2022-11-05] MEDS: LURASIDONE HCL 80 MG TABLET PO SCH (16:06)
[2022-11-05 16:07] VITALS: TEMP 98
[2022-11-05 20:29] VITALS: BP 108/62; PULSE 96; RESP 19; TEMP 97.8; O2SAT 100
[2022-11-05] MEDS: ATORVASTATIN CALCIUM 20 MG TABLET PO SCH (20:36)
[2022-11-05] MEDS: MELATONIN 5 MG TABLET PO SCH (20:37)
[2022-11-05] MEDS: MIRTAZAPINE 30 MG TABLET PO SCH (20:37)
[2022-11-06] VITALS (8 sets, daily range): BP systolic 126–129; BP diastolic 66–67; PULSE 76–83; RESP 18–19; TEMP 97–97.9; O2SAT 97–98
[2022-11-06] MEDS: FLUoxetine HCL 20 MG CAPSULE PO SCH (09:13)
[2022-11-06] MEDS: DOCUSATE SODIUM 250 MG CAPSULE PO SCH ×2 (09:13→16:32)
[2022-11-06] MEDS: TRIHEXYPHENIDYL HCL 5 MG TABLET PO SCH ×3 (09:13→16:32)
[2022-11-06] MEDS: GABAPENTIN 300 MG CAPSULE PO SCH ×4 (09:13→20:39)
[2022-11-06] MEDS: LISINOPRIL 10 MG TABLET PO SCH (09:13)
[2022-11-06] MEDS: AmLODIPine BESYLATE 5 MG TABLET PO SCH (09:13)
[2022-11-06] MEDS: OMEGA-3/DHA/EPA/FISH OIL 1,000 MG CAPSULE PO SCH (09:13)
[2022-11-06] MEDS: LURASIDONE HCL 80 MG TABLET PO SCH (16:44)
[2022-11-06] MEDS: MELATONIN 5 MG TABLET PO SCH (20:38)
[2022-11-06] MEDS: ATORVASTATIN CALCIUM 20 MG TABLET PO SCH (20:38)
[2022-11-06] MEDS: MIRTAZAPINE 30 MG TABLET PO SCH (20:38)
[2022-11-07] VITALS (8 sets, daily range): BP systolic 126–138; BP diastolic 60–95; PULSE 75–81; RESP 16–20; TEMP 97.4–98.4; O2SAT 95–99
[2022-11-07] MEDS: DOCUSATE SODIUM 250 MG CAPSULE PO SCH ×2 (08:23→16:56)
[2022-11-07] MEDS: GABAPENTIN 300 MG CAPSULE PO SCH ×4 (08:23→20:03)
[2022-11-07] MEDS: OMEGA-3/DHA/EPA/FISH OIL 1,000 MG CAPSULE PO SCH (08:23)
[2022-11-07] MEDS: TRIHEXYPHENIDYL HCL 5 MG TABLET PO SCH ×3 (08:23→16:56)
[2022-11-07] MEDS: FLUoxetine HCL 20 MG CAPSULE PO SCH (08:23)
[2022-11-07] MEDS: LISINOPRIL 10 MG TABLET PO SCH (08:24)
[2022-11-07] MEDS: AmLODIPine BESYLATE 5 MG TABLET PO SCH (08:24)
[2022-11-07] MEDS: LURASIDONE HCL 80 MG TABLET PO SCH (16:56)
[2022-11-07] MEDS: MIRTAZAPINE 30 MG TABLET PO SCH (20:02)
[2022-11-07] MEDS: MELATONIN 5 MG TABLET PO SCH (20:02)
[2022-11-07] MEDS: ATORVASTATIN CALCIUM 20 MG TABLET PO SCH (20:03)
[2022-11-07] MEDS: IBUPROFEN 600 MG TABLET PO PRN (21:55)
[2022-11-08] VITALS (8 sets, daily range): BP systolic 109–118; BP diastolic 67–69; PULSE 72–74; RESP 18–19; TEMP 97.4–98.3; O2SAT 96–98
[2022-11-08] MEDS: TRIHEXYPHENIDYL HCL 5 MG TABLET PO SCH ×3 (08:40→16:53)
[2022-11-08] MEDS: AmLODIPine BESYLATE 5 MG TABLET PO SCH (08:40)
[2022-11-08] MEDS: LISINOPRIL 10 MG TABLET PO SCH (08:41)
[2022-11-08] MEDS: DOCUSATE SODIUM 250 MG CAPSULE PO SCH ×2 (08:41→16:53)
[2022-11-08] MEDS: FLUoxetine HCL 20 MG CAPSULE PO SCH (08:41)
[2022-11-08] MEDS: OMEGA-3/DHA/EPA/FISH OIL 1,000 MG CAPSULE PO SCH (08:41)
[2022-11-08] MEDS: GABAPENTIN 300 MG CAPSULE PO SCH ×4 (08:41→20:19)
[2022-11-08 14:50] LABS: GLUCOMETER DEV NAME(LOC) POC.BV; POC SARS-COV2 AG, FIA NEGATIVE (NEGATIVE)
[2022-11-08] MEDS: LURASIDONE HCL 80 MG TABLET PO SCH (16:53)
[2022-11-08] MEDS: MELATONIN 5 MG TABLET PO SCH (20:19)
[2022-11-08] MEDS: MIRTAZAPINE 30 MG TABLET PO SCH (20:19)
[2022-11-08] MEDS: ATORVASTATIN CALCIUM 20 MG TABLET PO SCH (20:19)
[2022-11-09] VITALS (9 sets, daily range): BP systolic 106–110; BP diastolic 65–76; PULSE 73–75; RESP 16–19; TEMP 96.1–98; O2SAT 95
[2022-11-09] MEDS: FLUoxetine HCL 20 MG CAPSULE PO SCH (08:02)
[2022-11-09] MEDS: DOCUSATE SODIUM 250 MG CAPSULE PO SCH ×2 (08:02→17:07)
[2022-11-09] MEDS: OMEGA-3/DHA/EPA/FISH OIL 1,000 MG CAPSULE PO SCH (08:03)
[2022-11-09] MEDS: LISINOPRIL 10 MG TABLET PO SCH (08:03)
[2022-11-09] MEDS: GABAPENTIN 300 MG CAPSULE PO SCH ×4 (08:03→20:03)
[2022-11-09] MEDS: TRIHEXYPHENIDYL HCL 5 MG TABLET PO SCH ×3 (08:03→17:07)
[2022-11-09] MEDS: AmLODIPine BESYLATE 5 MG TABLET PO SCH (08:03)
[2022-11-09] MEDS: IBUPROFEN 600 MG TABLET PO PRN (10:57)
[2022-11-09] MEDS: LURASIDONE HCL 80 MG TABLET PO SCH (17:07)
[2022-11-09] MEDS: MELATONIN 5 MG TABLET PO SCH (20:03)
[2022-11-09] MEDS: ATORVASTATIN CALCIUM 20 MG TABLET PO SCH (20:03)
[2022-11-09] MEDS: MIRTAZAPINE 30 MG TABLET PO SCH (20:03)
[2022-11-10] VITALS (11 sets, daily range): BP systolic 132–156; BP diastolic 75–78; PULSE 71–79; RESP 16–18; TEMP 96.7–98.1; O2SAT 96–98
[2022-11-10] MEDS: DOCUSATE SODIUM 250 MG CAPSULE PO SCH ×2 (08:13→17:24)
[2022-11-10] MEDS: AmLODIPine BESYLATE 5 MG TABLET PO SCH (08:13)
[2022-11-10] MEDS: FLUoxetine HCL 20 MG CAPSULE PO SCH (08:13)
[2022-11-10] MEDS: TRIHEXYPHENIDYL HCL 5 MG TABLET PO SCH ×3 (08:13→17:24)
[2022-11-10] MEDS: LISINOPRIL 10 MG TABLET PO SCH (08:13)
[2022-11-10] MEDS: IBUPROFEN 600 MG TABLET PO PRN ×2 (08:14→16:27)
[2022-11-10] MEDS: GABAPENTIN 300 MG CAPSULE PO SCH ×4 (08:14→20:43)
[2022-11-10] MEDS: OMEGA-3/DHA/EPA/FISH OIL 1,000 MG CAPSULE PO SCH (08:14)
[2022-11-10] MEDS: LURASIDONE HCL 80 MG TABLET PO SCH (17:24)
[2022-11-10] MEDS: ATORVASTATIN CALCIUM 20 MG TABLET PO SCH (20:43)
[2022-11-10] MEDS: MELATONIN 5 MG TABLET PO SCH (20:43)
[2022-11-10] MEDS: MIRTAZAPINE 30 MG TABLET PO SCH (20:43)
[2022-11-11] VITALS (9 sets, daily range): BP systolic 111; BP diastolic 60; PULSE 69–70; RESP 17–18; TEMP 92.5–98; O2SAT 97–99
[2022-11-11] MEDS: TRIHEXYPHENIDYL HCL 5 MG TABLET PO SCH ×3 (08:37→16:57)
[2022-11-11] MEDS: DOCUSATE SODIUM 250 MG CAPSULE PO SCH ×2 (08:38→16:57)
[2022-11-11] MEDS: GABAPENTIN 300 MG CAPSULE PO SCH ×4 (08:38→21:15)
[2022-11-11] MEDS: OMEGA-3/DHA/EPA/FISH OIL 1,000 MG CAPSULE PO SCH (08:38)
[2022-11-11] MEDS: AmLODIPine BESYLATE 5 MG TABLET PO SCH (08:38)
[2022-11-11] MEDS: FLUoxetine HCL 20 MG CAPSULE PO SCH (08:38)
[2022-11-11] MEDS: LISINOPRIL 10 MG TABLET PO SCH (08:38)
[2022-11-11] MEDS: ACETAMINOPHEN 325 MG TABLET PO PRN (11:07)
[2022-11-11] MEDS: LURASIDONE HCL 80 MG TABLET PO SCH (16:57)
[2022-11-11] MEDS: MELATONIN 5 MG TABLET PO SCH (21:15)
[2022-11-11] MEDS: ATORVASTATIN CALCIUM 20 MG TABLET PO SCH (21:15)
[2022-11-11] MEDS: MIRTAZAPINE 30 MG TABLET PO SCH (21:15)
[2022-11-12] VITALS (9 sets, daily range): BP systolic 113–143; BP diastolic 52–92; PULSE 70–96; RESP 18; TEMP 97–98; O2SAT 96–99
[2022-11-12] MEDS: GABAPENTIN 300 MG CAPSULE PO SCH ×4 (08:27→20:08)
[2022-11-12] MEDS: AmLODIPine BESYLATE 5 MG TABLET PO SCH (08:28)
[2022-11-12] MEDS: LISINOPRIL 10 MG TABLET PO SCH (08:28)
[2022-11-12] MEDS: FLUoxetine HCL 20 MG CAPSULE PO SCH (08:28)
[2022-11-12] MEDS: OMEGA-3/DHA/EPA/FISH OIL 1,000 MG CAPSULE PO SCH (08:28)
[2022-11-12] MEDS: DOCUSATE SODIUM 250 MG CAPSULE PO SCH ×2 (08:28→17:01)
[2022-11-12] MEDS: TRIHEXYPHENIDYL HCL 5 MG TABLET PO SCH ×3 (08:28→17:01)
[2022-11-12] MEDS: LURASIDONE HCL 80 MG TABLET PO SCH (17:01)
[2022-11-12] MEDS: ATORVASTATIN CALCIUM 20 MG TABLET PO SCH (20:08)
[2022-11-12] MEDS: MELATONIN 5 MG TABLET PO SCH (20:08)
[2022-11-12] MEDS: MIRTAZAPINE 30 MG TABLET PO SCH (21:00)
[2022-11-13 04:00] VITALS: TEMP 97.8
[2022-11-13] MEDS: TRIHEXYPHENIDYL HCL 5 MG TABLET PO SCH ×3 (08:08→16:23)
[2022-11-13] MEDS: FLUoxetine HCL 20 MG CAPSULE PO SCH (08:09)
[2022-11-13] MEDS: OMEGA-3/DHA/EPA/FISH OIL 1,000 MG CAPSULE PO SCH (08:09)
[2022-11-13] MEDS: DOCUSATE SODIUM 250 MG CAPSULE PO SCH ×2 (08:10→16:23)
[2022-11-13] MEDS: GABAPENTIN 300 MG CAPSULE PO SCH ×4 (08:10→20:33)
[2022-11-13] MEDS: LISINOPRIL 10 MG TABLET PO SCH (08:11)
[2022-11-13] MEDS: AmLODIPine BESYLATE 5 MG TABLET PO SCH (08:11)
[2022-11-13 11:17] VITALS: BP 121/75; PULSE 73; RESP 18; TEMP 98.3; O2SAT 96
[2022-11-13 13:21] VITALS: TEMP 90.5
[2022-11-13 16:06] VITALS: TEMP 97.7
[2022-11-13] MEDS: LURASIDONE HCL 80 MG TABLET PO SCH (16:24)
[2022-11-13 20:30] VITALS: TEMP 97.4
[2022-11-13 20:31] VITALS: BP 140/86; PULSE 88; RESP 17; TEMP 97.4; O2SAT 98
[2022-11-13] MEDS: ATORVASTATIN CALCIUM 20 MG TABLET PO SCH (20:33)
[2022-11-13] MEDS: MELATONIN 5 MG TABLET PO SCH (20:33)
[2022-11-13] MEDS: MIRTAZAPINE 30 MG TABLET PO SCH (20:33)
[2022-11-14] VITALS (7 sets, daily range): BP systolic 141–142; BP diastolic 72–83; PULSE 77–91; RESP 17–18; TEMP 97.5–98.2; O2SAT 97
[2022-11-14] MEDS: TRIHEXYPHENIDYL HCL 5 MG TABLET PO SCH ×3 (09:10→17:18)
[2022-11-14] MEDS: OMEGA-3/DHA/EPA/FISH OIL 1,000 MG CAPSULE PO SCH (09:10)
[2022-11-14] MEDS: GABAPENTIN 300 MG CAPSULE PO SCH ×4 (09:11→20:35)
[2022-11-14] MEDS: DOCUSATE SODIUM 250 MG CAPSULE PO SCH ×2 (09:11→17:18)
[2022-11-14] MEDS: LISINOPRIL 10 MG TABLET PO SCH (09:11)
[2022-11-14] MEDS: AmLODIPine BESYLATE 5 MG TABLET PO SCH (09:11)
[2022-11-14] MEDS: FLUoxetine HCL 20 MG CAPSULE PO SCH (09:11)
[2022-11-14] MEDS: LURASIDONE HCL 80 MG TABLET PO SCH (17:18)
[2022-11-14] MEDS: ATORVASTATIN CALCIUM 20 MG TABLET PO SCH (20:34)
[2022-11-14] MEDS: MIRTAZAPINE 30 MG TABLET PO SCH (20:35)
[2022-11-14] MEDS: MELATONIN 5 MG TABLET PO SCH (20:35)
[2022-11-15 00:16] VITALS: TEMP 97.7
[2022-11-15 04:13] VITALS: TEMP 97.5
[2022-11-15 08:17] VITALS: BP 135/71; PULSE 72; RESP 18; TEMP 97.5; O2SAT 99
[2022-11-15] MEDS: LISINOPRIL 10 MG TABLET PO SCH (08:27)
[2022-11-15] MEDS: DOCUSATE SODIUM 250 MG CAPSULE PO SCH ×2 (08:27→17:17)
[2022-11-15] MEDS: FLUoxetine HCL 20 MG CAPSULE PO SCH (08:27)
[2022-11-15] MEDS: AmLODIPine BESYLATE 5 MG TABLET PO SCH (08:27)
[2022-11-15] MEDS: OMEGA-3/DHA/EPA/FISH OIL 1,000 MG CAPSULE PO SCH (08:27)
[2022-11-15] MEDS: TRIHEXYPHENIDYL HCL 5 MG TABLET PO SCH ×3 (08:28→17:17)
[2022-11-15] MEDS: GABAPENTIN 300 MG CAPSULE PO SCH ×4 (08:28→19:42)
[2022-11-15 12:34] VITALS: TEMP 98.2
[2022-11-15] MEDS: LURASIDONE HCL 80 MG TABLET PO SCH (17:17)
[2022-11-15 18:04] VITALS: TEMP 98.3
[2022-11-15] MEDS: MIRTAZAPINE 30 MG TABLET PO SCH (19:42)
[2022-11-15] MEDS: MELATONIN 5 MG TABLET PO SCH (19:42)
[2022-11-15 21:44] VITALS: BP 150/90; PULSE 94; RESP 18; TEMP 97.6
[2022-11-15] MEDS: ATORVASTATIN CALCIUM 20 MG TABLET PO SCH (21:55)
[2022-11-15 23:51] LABS: GLUCOMETER DEV NAME(LOC) POC.BV; POC SARS-COV2 AG, FIA NEGATIVE (NEGATIVE)
[2022-11-16 00:01] VITALS: TEMP 97.9
[2022-11-16 04:06] VITALS: TEMP 97.8
[2022-11-16] MEDS: AmLODIPine BESYLATE 5 MG TABLET PO SCH (08:09)
[2022-11-16] MEDS: GABAPENTIN 300 MG CAPSULE PO SCH ×4 (08:09→20:09)
[2022-11-16] MEDS: LISINOPRIL 10 MG TABLET PO SCH (08:09)
[2022-11-16] MEDS: FLUoxetine HCL 20 MG CAPSULE PO SCH (08:09)
[2022-11-16] MEDS: OMEGA-3/DHA/EPA/FISH OIL 1,000 MG CAPSULE PO SCH (08:09)
[2022-11-16] MEDS: TRIHEXYPHENIDYL HCL 5 MG TABLET PO SCH ×3 (08:09→16:18)
[2022-11-16] MEDS: DOCUSATE SODIUM 250 MG CAPSULE PO SCH ×2 (08:09→16:18)
[2022-11-16 09:27] VITALS: BP 153/76; PULSE 69; RESP 18; TEMP 97.8; O2SAT 94
[2022-11-16 12:20] VITALS: TEMP 98.9
[2022-11-16] MEDS: LURASIDONE HCL 80 MG TABLET PO SCH (16:18)
[2022-11-16 16:21] VITALS: TEMP 97.3
[2022-11-16 20:00] VITALS: BP 119/68; PULSE 86; RESP 18; TEMP 97.7; O2SAT 95
[2022-11-16] MEDS: MIRTAZAPINE 30 MG TABLET PO SCH (20:09)
[2022-11-16] MEDS: MELATONIN 5 MG TABLET PO SCH (20:09)
[2022-11-16] MEDS: ATORVASTATIN CALCIUM 20 MG TABLET PO SCH (20:09)
[2022-11-17] VITALS (8 sets, daily range): BP systolic 122–138; BP diastolic 62–82; PULSE 82–91; RESP 16–18; TEMP 97.4–98; O2SAT 97–99
[2022-11-17] MEDS: TRIHEXYPHENIDYL HCL 5 MG TABLET PO SCH ×3 (08:26→16:55)
[2022-11-17] MEDS: FLUoxetine HCL 20 MG CAPSULE PO SCH (08:27)
[2022-11-17] MEDS: DOCUSATE SODIUM 250 MG CAPSULE PO SCH ×2 (08:27→16:55)
[2022-11-17] MEDS: GABAPENTIN 300 MG CAPSULE PO SCH ×4 (08:27→20:10)
[2022-11-17] MEDS: LISINOPRIL 10 MG TABLET PO SCH (08:27)
[2022-11-17] MEDS: AmLODIPine BESYLATE 5 MG TABLET PO SCH (08:27)
[2022-11-17] MEDS: OMEGA-3/DHA/EPA/FISH OIL 1,000 MG CAPSULE PO SCH (08:27)
[2022-11-17] MEDS: LURASIDONE HCL 80 MG TABLET PO SCH (16:56)
[2022-11-17] MEDS: ATORVASTATIN CALCIUM 20 MG TABLET PO SCH (20:09)
[2022-11-17] MEDS: MIRTAZAPINE 30 MG TABLET PO SCH (20:10)
[2022-11-17] MEDS: MELATONIN 5 MG TABLET PO SCH (20:10)
[2022-11-17] MEDS: IBUPROFEN 600 MG TABLET PO PRN (20:12)
[2022-11-18 01:29] VITALS: TEMP 96.1
[2022-11-18 04:11] VITALS: TEMP 96.6
[2022-11-18] MEDS: TRIHEXYPHENIDYL HCL 5 MG TABLET PO SCH ×3 (08:25→17:08)
[2022-11-18] MEDS: FLUoxetine HCL 20 MG CAPSULE PO SCH (08:25)
[2022-11-18] MEDS: AmLODIPine BESYLATE 5 MG TABLET PO SCH (08:26)
[2022-11-18] MEDS: DOCUSATE SODIUM 250 MG CAPSULE PO SCH ×2 (08:26→17:10)
[2022-11-18] MEDS: GABAPENTIN 300 MG CAPSULE PO SCH ×4 (08:26→20:16)
[2022-11-18] MEDS: OMEGA-3/DHA/EPA/FISH OIL 1,000 MG CAPSULE PO SCH (08:26)
[2022-11-18] MEDS: LISINOPRIL 10 MG TABLET PO SCH (08:26)
[2022-11-18 08:33] VITALS: BP 135/86; PULSE 68; RESP 18; TEMP 97.9; O2SAT 98
[2022-11-18 13:00] VITALS: TEMP 97.6
[2022-11-18 16:34] VITALS: TEMP 98.1
[2022-11-18] MEDS: LURASIDONE HCL 80 MG TABLET PO SCH (17:37)
[2022-11-18 20:07] VITALS: BP 133/78; PULSE 70; RESP 18; TEMP 97.8; O2SAT 100
[2022-11-18] MEDS: MIRTAZAPINE 30 MG TABLET PO SCH (20:15)
[2022-11-18] MEDS: ATORVASTATIN CALCIUM 20 MG TABLET PO SCH (20:16)
[2022-11-18] MEDS: MELATONIN 5 MG TABLET PO SCH (20:16)
[2022-11-19] VITALS (9 sets, daily range): BP systolic 114–119; BP diastolic 76–80; PULSE 80–87; RESP 17–19; TEMP 97.7–98.4; O2SAT 94–97
[2022-11-19] MEDS: TRIHEXYPHENIDYL HCL 5 MG TABLET PO SCH ×3 (08:02→16:12)
[2022-11-19] MEDS: AmLODIPine BESYLATE 5 MG TABLET PO SCH (08:02)
[2022-11-19] MEDS: LISINOPRIL 10 MG TABLET PO SCH (08:02)
[2022-11-19] MEDS: GABAPENTIN 300 MG CAPSULE PO SCH ×4 (08:02→20:35)
[2022-11-19] MEDS: OMEGA-3/DHA/EPA/FISH OIL 1,000 MG CAPSULE PO SCH (08:02)
[2022-11-19] MEDS: DOCUSATE SODIUM 250 MG CAPSULE PO SCH ×2 (08:02→16:12)
[2022-11-19] MEDS: FLUoxetine HCL 20 MG CAPSULE PO SCH (08:02)
[2022-11-19] MEDS: LURASIDONE HCL 80 MG TABLET PO SCH (16:12)
[2022-11-19] MEDS: ATORVASTATIN CALCIUM 20 MG TABLET PO SCH (20:35)
[2022-11-19] MEDS: MIRTAZAPINE 30 MG TABLET PO SCH (20:35)
[2022-11-19] MEDS: MELATONIN 5 MG TABLET PO SCH (20:35)
[2022-11-19] MEDS: ACETAMINOPHEN 325 MG TABLET PO PRN (22:06)
[2022-11-20 00:02] VITALS: TEMP 97.7
[2022-11-20 04:00] VITALS: TEMP 97.6
[2022-11-20 08:12] VITALS: BP 143/72; PULSE 77; RESP 17; TEMP 98; O2SAT 98
[2022-11-20] MEDS: FLUoxetine HCL 20 MG CAPSULE PO SCH (08:34)
[2022-11-20] MEDS: AmLODIPine BESYLATE 5 MG TABLET PO SCH (08:34)
[2022-11-20] MEDS: TRIHEXYPHENIDYL HCL 5 MG TABLET PO SCH ×3 (08:34→16:58)
[2022-11-20] MEDS: GABAPENTIN 300 MG CAPSULE PO SCH ×4 (08:34→21:03)
[2022-11-20] MEDS: LISINOPRIL 10 MG TABLET PO SCH (08:34)
[2022-11-20] MEDS: OMEGA-3/DHA/EPA/FISH OIL 1,000 MG CAPSULE PO SCH (08:34)
[2022-11-20] MEDS: DOCUSATE SODIUM 250 MG CAPSULE PO SCH ×2 (08:34→16:59)
[2022-11-20 12:29] VITALS: TEMP 97.8
[2022-11-20 16:33] VITALS: TEMP 98.2
[2022-11-20] MEDS: LURASIDONE HCL 80 MG TABLET PO SCH (16:58)
[2022-11-20 20:14] VITALS: BP 113/68; PULSE 75; RESP 18; TEMP 98.3; O2SAT 97
[2022-11-20] MEDS: ATORVASTATIN CALCIUM 20 MG TABLET PO SCH (21:03)
[2022-11-20] MEDS: MELATONIN 5 MG TABLET PO SCH (21:03)
[2022-11-20] MEDS: MIRTAZAPINE 30 MG TABLET PO SCH (21:04)
[2022-11-21] VITALS (9 sets, daily range): BP systolic 102–140; BP diastolic 63–76; PULSE 76–96; RESP 16–18; TEMP 97–98.4; O2SAT 96–97
[2022-11-21] MEDS: AmLODIPine BESYLATE 5 MG TABLET PO SCH (08:32)
[2022-11-21] MEDS: TRIHEXYPHENIDYL HCL 5 MG TABLET PO SCH ×3 (08:32→17:07)
[2022-11-21] MEDS: OMEGA-3/DHA/EPA/FISH OIL 1,000 MG CAPSULE PO SCH (08:32)
[2022-11-21] MEDS: GABAPENTIN 300 MG CAPSULE PO SCH ×4 (08:32→20:08)
[2022-11-21] MEDS: DOCUSATE SODIUM 250 MG CAPSULE PO SCH ×2 (08:33→17:07)
[2022-11-21] MEDS: FLUoxetine HCL 20 MG CAPSULE PO SCH (08:33)
[2022-11-21] MEDS: LISINOPRIL 10 MG TABLET PO SCH (08:33)
[2022-11-21] MEDS: LURASIDONE HCL 80 MG TABLET PO SCH (17:07)
[2022-11-21] MEDS: MIRTAZAPINE 30 MG TABLET PO SCH (20:08)
[2022-11-21] MEDS: MELATONIN 5 MG TABLET PO SCH (20:09)
[2022-11-21] MEDS: ATORVASTATIN CALCIUM 20 MG TABLET PO SCH (20:09)
[2022-11-21] MEDS: ACETAMINOPHEN 325 MG TABLET PO PRN (21:14)
[2022-11-22] VITALS (7 sets, daily range): BP systolic 130–135; BP diastolic 80–90; PULSE 79–80; RESP 18–19; TEMP 97.2–98.3
[2022-11-22 04:16] LABS: GLUCOMETER DEV NAME(LOC) POC.BV; POC SARS-COV2 AG, FIA NEGATIVE (NEGATIVE)
[2022-11-22] MEDS: LISINOPRIL 10 MG TABLET PO SCH (08:10)
[2022-11-22] MEDS: DOCUSATE SODIUM 250 MG CAPSULE PO SCH ×2 (08:10→17:01)
[2022-11-22] MEDS: AmLODIPine BESYLATE 5 MG TABLET PO SCH (08:11)
[2022-11-22] MEDS: TRIHEXYPHENIDYL HCL 5 MG TABLET PO SCH ×3 (08:11→17:01)
[2022-11-22] MEDS: FLUoxetine HCL 20 MG CAPSULE PO SCH (08:12)
[2022-11-22] MEDS: GABAPENTIN 300 MG CAPSULE PO SCH ×4 (08:12→20:22)
[2022-11-22] MEDS: OMEGA-3/DHA/EPA/FISH OIL 1,000 MG CAPSULE PO SCH (08:12)
[2022-11-22] MEDS: IBUPROFEN 600 MG TABLET PO PRN (11:54)
[2022-11-22] MEDS: LURASIDONE HCL 80 MG TABLET PO SCH (17:01)
[2022-11-22] MEDS: MELATONIN 5 MG TABLET PO SCH (20:22)
[2022-11-22] MEDS: MIRTAZAPINE 30 MG TABLET PO SCH (20:22)
[2022-11-22] MEDS: ATORVASTATIN CALCIUM 20 MG TABLET PO SCH (20:22)
[2022-11-23] VITALS (10 sets, daily range): BP systolic 136–182; BP diastolic 80–109; PULSE 92–99; RESP 16–18; TEMP 95.8–98; O2SAT 16–99
[2022-11-23] MEDS: AmLODIPine BESYLATE 5 MG TABLET PO SCH (08:19)
[2022-11-23] MEDS: TRIHEXYPHENIDYL HCL 5 MG TABLET PO SCH ×3 (08:19→17:00)
[2022-11-23] MEDS: LISINOPRIL 10 MG TABLET PO SCH (08:20)
[2022-11-23] MEDS: OMEGA-3/DHA/EPA/FISH OIL 1,000 MG CAPSULE PO SCH (08:20)
[2022-11-23] MEDS: GABAPENTIN 300 MG CAPSULE PO SCH ×4 (08:20→17:00)
[2022-11-23] MEDS: FLUoxetine HCL 20 MG CAPSULE PO SCH (08:20)
[2022-11-23] MEDS: DOCUSATE SODIUM 250 MG CAPSULE PO SCH ×2 (08:20→17:00)
[2022-11-23] MEDS: LURASIDONE HCL 80 MG TABLET PO SCH (17:00)
[2022-11-23] MEDS: MELATONIN 5 MG TABLET PO SCH (20:03)
[2022-11-23] MEDS: MIRTAZAPINE 15 MG TABLET PO SCH (20:04)
[2022-11-23] MEDS: ATORVASTATIN CALCIUM 20 MG TABLET PO SCH (20:04)
[2022-11-23] MEDS: GABAPENTIN 400 MG CAPSULE PO SCH (20:04)
[2022-11-24] VITALS (7 sets, daily range): BP systolic 136–146; BP diastolic 73–84; PULSE 84–90; RESP 18; TEMP 97.6–98.1; O2SAT 96–97
[2022-11-24] MEDS: GABAPENTIN 300 MG CAPSULE PO SCH ×3 (08:22→17:06)
[2022-11-24] MEDS: OMEGA-3/DHA/EPA/FISH OIL 1,000 MG CAPSULE PO SCH (08:22)
[2022-11-24] MEDS: TRIHEXYPHENIDYL HCL 5 MG TABLET PO SCH ×3 (08:22→17:06)
[2022-11-24] MEDS: DOCUSATE SODIUM 250 MG CAPSULE PO SCH ×2 (08:22→17:06)
[2022-11-24] MEDS: AmLODIPine BESYLATE 5 MG TABLET PO SCH (08:23)
[2022-11-24] MEDS: LISINOPRIL 10 MG TABLET PO SCH (08:23)
[2022-11-24] MEDS: FLUoxetine HCL 20 MG CAPSULE PO SCH (08:23)
[2022-11-24] MEDS: LURASIDONE HCL 80 MG TABLET PO SCH (17:06)
[2022-11-24] MEDS: ATORVASTATIN CALCIUM 20 MG TABLET PO SCH (20:10)
[2022-11-24] MEDS: MIRTAZAPINE 15 MG TABLET PO SCH (20:10)
[2022-11-24] MEDS: MELATONIN 5 MG TABLET PO SCH (20:10)
[2022-11-24] MEDS: GABAPENTIN 400 MG CAPSULE PO SCH (20:10)
[2022-11-25] VITALS (10 sets, daily range): BP systolic 110–150; BP diastolic 60–76; PULSE 81–83; RESP 17–18; TEMP 97–98.3; O2SAT 96
[2022-11-25] MEDS: AmLODIPine BESYLATE 5 MG TABLET PO SCH (09:51)
[2022-11-25] MEDS: DOCUSATE SODIUM 250 MG CAPSULE PO SCH ×2 (09:51→17:44)
[2022-11-25] MEDS: LISINOPRIL 10 MG TABLET PO SCH (09:51)
[2022-11-25] MEDS: FLUoxetine HCL 20 MG CAPSULE PO SCH (09:51)
[2022-11-25] MEDS: OMEGA-3/DHA/EPA/FISH OIL 1,000 MG CAPSULE PO SCH (09:51)
[2022-11-25] MEDS: GABAPENTIN 300 MG CAPSULE PO SCH ×3 (09:51→17:44)
[2022-11-25] MEDS: TRIHEXYPHENIDYL HCL 5 MG TABLET PO SCH ×3 (09:52→17:44)
[2022-11-25] MEDS: IBUPROFEN 600 MG TABLET PO PRN ×2 (16:53→20:13)
[2022-11-25] MEDS: LURASIDONE HCL 80 MG TABLET PO SCH (17:44)
[2022-11-25] MEDS: ATORVASTATIN CALCIUM 20 MG TABLET PO SCH (20:13)
[2022-11-25] MEDS: MELATONIN 5 MG TABLET PO SCH (20:13)
[2022-11-25] MEDS: GABAPENTIN 400 MG CAPSULE PO SCH (20:14)
[2022-11-25] MEDS: MIRTAZAPINE 15 MG TABLET PO SCH (20:14)
[2022-11-26] VITALS (9 sets, daily range): BP systolic 117–126; BP diastolic 69–75; PULSE 69–78; RESP 18–19; TEMP 97.7–98.1
[2022-11-26] MEDS: TRIHEXYPHENIDYL HCL 5 MG TABLET PO SCH ×3 (08:34→16:58)
[2022-11-26] MEDS: AmLODIPine BESYLATE 5 MG TABLET PO SCH (08:34)
[2022-11-26] MEDS: DOCUSATE SODIUM 250 MG CAPSULE PO SCH ×2 (08:34→17:00)
[2022-11-26] MEDS: LISINOPRIL 10 MG TABLET PO SCH (08:34)
[2022-11-26] MEDS: FLUoxetine HCL 20 MG CAPSULE PO SCH (08:34)
[2022-11-26] MEDS: GABAPENTIN 300 MG CAPSULE PO SCH ×3 (08:34→17:00)
[2022-11-26] MEDS: OMEGA-3/DHA/EPA/FISH OIL 1,000 MG CAPSULE PO SCH (08:34)
[2022-11-26] MEDS: IBUPROFEN 600 MG TABLET PO PRN (12:35)
[2022-11-26] MEDS: LURASIDONE HCL 80 MG TABLET PO SCH (16:59)
[2022-11-26] MEDS: MIRTAZAPINE 15 MG TABLET PO SCH (20:38)
[2022-11-26] MEDS: ATORVASTATIN CALCIUM 20 MG TABLET PO SCH (20:38)
[2022-11-26] MEDS: MELATONIN 5 MG TABLET PO SCH (20:38)
[2022-11-26] MEDS: GABAPENTIN 400 MG CAPSULE PO SCH (20:38)
[2022-11-27] VITALS (7 sets, daily range): BP systolic 114–138; BP diastolic 63–71; PULSE 72; RESP 17–18; TEMP 97.7–99; O2SAT 98
[2022-11-27] MEDS: LISINOPRIL 10 MG TABLET PO SCH (09:00)
[2022-11-27] MEDS: AmLODIPine BESYLATE 5 MG TABLET PO SCH (09:00)
[2022-11-27] MEDS: TRIHEXYPHENIDYL HCL 5 MG TABLET PO SCH ×3 (09:00→16:47)
[2022-11-27] MEDS: DOCUSATE SODIUM 250 MG CAPSULE PO SCH ×2 (09:00→16:47)
[2022-11-27] MEDS: FLUoxetine HCL 20 MG CAPSULE PO SCH (09:00)
[2022-11-27] MEDS: GABAPENTIN 300 MG CAPSULE PO SCH ×3 (09:00→16:46)
[2022-11-27] MEDS: OMEGA-3/DHA/EPA/FISH OIL 1,000 MG CAPSULE PO SCH (09:01)
[2022-11-27] MEDS: LURASIDONE HCL 80 MG TABLET PO SCH (16:47)
[2022-11-27] MEDS: ATORVASTATIN CALCIUM 20 MG TABLET PO SCH (20:40)
[2022-11-27] MEDS: MELATONIN 5 MG TABLET PO SCH (20:40)
[2022-11-27] MEDS: GABAPENTIN 400 MG CAPSULE PO SCH (20:40)
[2022-11-27] MEDS: MIRTAZAPINE 15 MG TABLET PO SCH (20:40)
[2022-11-27] MEDS: OLANZapine 5 MG RAPDIS TABLET PO SCH (21:23)
[2022-11-28] VITALS (9 sets, daily range): BP systolic 129–136; BP diastolic 68–69; PULSE 67–76; RESP 17–18; TEMP 97.7–98.2; O2SAT 97–98
[2022-11-28] MEDS: TRIHEXYPHENIDYL HCL 5 MG TABLET PO SCH ×3 (08:22→16:58)
[2022-11-28] MEDS: AmLODIPine BESYLATE 5 MG TABLET PO SCH (08:22)
[2022-11-28] MEDS: FLUoxetine HCL 20 MG CAPSULE PO SCH (08:22)
[2022-11-28] MEDS: LISINOPRIL 10 MG TABLET PO SCH (08:23)
[2022-11-28] MEDS: OMEGA-3/DHA/EPA/FISH OIL 1,000 MG CAPSULE PO SCH (08:23)
[2022-11-28] MEDS: DOCUSATE SODIUM 250 MG CAPSULE PO SCH ×2 (08:23→16:58)
[2022-11-28] MEDS: GABAPENTIN 300 MG CAPSULE PO SCH ×3 (08:23→16:59)
[2022-11-28] MEDS: IBUPROFEN 600 MG TABLET PO PRN (11:35)
[2022-11-28] MEDS: LURASIDONE HCL 80 MG TABLET PO SCH (16:59)
[2022-11-28] MEDS: MELATONIN 5 MG TABLET PO SCH (20:29)
[2022-11-28] MEDS: ATORVASTATIN CALCIUM 20 MG TABLET PO SCH (20:29)
[2022-11-28] MEDS: GABAPENTIN 400 MG CAPSULE PO SCH (20:29)
[2022-11-28] MEDS: MIRTAZAPINE 15 MG TABLET PO SCH (20:30)
[2022-11-28] MEDS: OLANZapine 5 MG RAPDIS TABLET PO SCH (20:30)
[2022-11-29] VITALS (8 sets, daily range): BP systolic 114–127; BP diastolic 58–66; PULSE 66–84; RESP 19; TEMP 97.7–98.6; O2SAT 95–100
[2022-11-29] MEDS: AmLODIPine BESYLATE 5 MG TABLET PO SCH (09:04)
[2022-11-29] MEDS: GABAPENTIN 300 MG CAPSULE PO SCH ×3 (09:04→16:45)
[2022-11-29] MEDS: OMEGA-3/DHA/EPA/FISH OIL 1,000 MG CAPSULE PO SCH (09:04)
[2022-11-29] MEDS: LISINOPRIL 10 MG TABLET PO SCH (09:04)
[2022-11-29] MEDS: FLUoxetine HCL 20 MG CAPSULE PO SCH (09:04)
[2022-11-29] MEDS: DOCUSATE SODIUM 250 MG CAPSULE PO SCH ×2 (09:04→16:45)
[2022-11-29] MEDS: TRIHEXYPHENIDYL HCL 5 MG TABLET PO SCH ×3 (09:04→16:45)
[2022-11-29 15:06] LABS: GLUCOMETER DEV NAME(LOC) POC.BV; POC SARS-COV2 AG, FIA NEGATIVE (NEGATIVE)
[2022-11-29] MEDS: LURASIDONE HCL 60 MG TABLET PO SCH (16:45)
[2022-11-29] MEDS: MIRTAZAPINE 15 MG TABLET PO SCH (20:47)
[2022-11-29] MEDS: MELATONIN 5 MG TABLET PO SCH (20:47)
[2022-11-29] MEDS: ATORVASTATIN CALCIUM 20 MG TABLET PO SCH (20:48)
[2022-11-29] MEDS: OLANZapine 10 MG RAPDIS TABLET PO SCH (20:48)
[2022-11-29] MEDS: GABAPENTIN 400 MG CAPSULE PO SCH (20:48)
[2022-11-30] VITALS (7 sets, daily range): BP systolic 116–161; BP diastolic 55–67; PULSE 75–95; RESP 18; TEMP 97.5–98.3; O2SAT 97–98
[2022-11-30] MEDS: FLUoxetine HCL 20 MG CAPSULE PO SCH (08:28)
[2022-11-30] MEDS: OMEGA-3/DHA/EPA/FISH OIL 1,000 MG CAPSULE PO SCH (08:28)
[2022-11-30] MEDS: GABAPENTIN 300 MG CAPSULE PO SCH ×3 (08:28→16:30)
[2022-11-30] MEDS: TRIHEXYPHENIDYL HCL 5 MG TABLET PO SCH ×3 (08:28→16:29)
[2022-11-30] MEDS: AmLODIPine BESYLATE 5 MG TABLET PO SCH (08:28)
[2022-11-30] MEDS: LISINOPRIL 10 MG TABLET PO SCH (08:29)
[2022-11-30] MEDS: DOCUSATE SODIUM 250 MG CAPSULE PO SCH ×2 (08:29→16:29)
[2022-11-30] MEDS: LURASIDONE HCL 60 MG TABLET PO SCH (16:30)
[2022-11-30] MEDS: OLANZapine 10 MG RAPDIS TABLET PO SCH (20:12)
[2022-11-30] MEDS: ATORVASTATIN CALCIUM 20 MG TABLET PO SCH (20:12)
[2022-11-30] MEDS: MIRTAZAPINE 15 MG TABLET PO SCH (20:12)
[2022-11-30] MEDS: MELATONIN 5 MG TABLET PO SCH (20:12)
[2022-11-30] MEDS: GABAPENTIN 400 MG CAPSULE PO SCH (20:13)
[2022-12-01] VITALS (7 sets, daily range): BP systolic 113–138; BP diastolic 68–69; PULSE 83–85; RESP 17–19; TEMP 97.5–98
[2022-12-01] MEDS: FLUoxetine HCL 20 MG CAPSULE PO SCH (08:27)
[2022-12-01] MEDS: TRIHEXYPHENIDYL HCL 5 MG TABLET PO SCH ×3 (08:27→17:19)
[2022-12-01] MEDS: GABAPENTIN 300 MG CAPSULE PO SCH ×3 (08:28→17:19)
[2022-12-01] MEDS: OMEGA-3/DHA/EPA/FISH OIL 1,000 MG CAPSULE PO SCH (08:28)
[2022-12-01] MEDS: DOCUSATE SODIUM 250 MG CAPSULE PO SCH ×2 (08:28→17:18)
[2022-12-01] MEDS: AmLODIPine BESYLATE 5 MG TABLET PO SCH (08:28)
[2022-12-01] MEDS: LISINOPRIL 10 MG TABLET PO SCH (08:28)
[2022-12-01] MEDS: LURASIDONE HCL 60 MG TABLET PO SCH (17:19)
[2022-12-01] MEDS: MELATONIN 5 MG TABLET PO SCH (20:06)
[2022-12-01] MEDS: MIRTAZAPINE 15 MG TABLET PO SCH (20:06)
[2022-12-01] MEDS: GABAPENTIN 400 MG CAPSULE PO SCH (20:06)
[2022-12-01] MEDS: OLANZapine 10 MG RAPDIS TABLET PO SCH (20:06)
[2022-12-01] MEDS: ATORVASTATIN CALCIUM 20 MG TABLET PO SCH (20:06)
[2022-12-02] VITALS (8 sets, daily range): BP systolic 117–136; BP diastolic 58–95; PULSE 73–90; RESP 18–19; TEMP 97.4–97.9; O2SAT 100
[2022-12-02] MEDS: FLUoxetine HCL 20 MG CAPSULE PO SCH (08:01)
[2022-12-02] MEDS: TRIHEXYPHENIDYL HCL 5 MG TABLET PO SCH ×3 (08:01→16:40)
[2022-12-02] MEDS: AmLODIPine BESYLATE 5 MG TABLET PO SCH (08:02)
[2022-12-02] MEDS: LISINOPRIL 10 MG TABLET PO SCH (08:02)
[2022-12-02] MEDS: OMEGA-3/DHA/EPA/FISH OIL 1,000 MG CAPSULE PO SCH (08:02)
[2022-12-02] MEDS: DOCUSATE SODIUM 250 MG CAPSULE PO SCH ×2 (08:02→16:40)
[2022-12-02] MEDS: GABAPENTIN 300 MG CAPSULE PO SCH ×3 (08:02→16:40)
[2022-12-02] MEDS: LURASIDONE HCL 60 MG TABLET PO SCH (16:40)
[2022-12-02] MEDS: MELATONIN 5 MG TABLET PO SCH (20:34)
[2022-12-02] MEDS: ATORVASTATIN CALCIUM 20 MG TABLET PO SCH (20:34)
[2022-12-02] MEDS: OLANZapine 10 MG RAPDIS TABLET PO SCH (20:34)
[2022-12-02] MEDS: GABAPENTIN 400 MG CAPSULE PO SCH (20:34)
[2022-12-02] MEDS: MIRTAZAPINE 15 MG TABLET PO SCH (20:34)
[2022-12-03] VITALS (8 sets, daily range): BP systolic 123–145; BP diastolic 68–99; PULSE 78–90; RESP 18–19; TEMP 97.6–98.6; O2SAT 99–100
[2022-12-03] MEDS: TRIHEXYPHENIDYL HCL 5 MG TABLET PO SCH ×3 (08:09→16:45)
[2022-12-03] MEDS: AmLODIPine BESYLATE 5 MG TABLET PO SCH (08:09)
[2022-12-03] MEDS: LISINOPRIL 10 MG TABLET PO SCH (08:10)
[2022-12-03] MEDS: FLUoxetine HCL 20 MG CAPSULE PO SCH (08:10)
[2022-12-03] MEDS: OMEGA-3/DHA/EPA/FISH OIL 1,000 MG CAPSULE PO SCH (08:10)
[2022-12-03] MEDS: DOCUSATE SODIUM 250 MG CAPSULE PO SCH ×2 (08:10→16:45)
[2022-12-03] MEDS: GABAPENTIN 300 MG CAPSULE PO SCH ×3 (08:10→16:45)
[2022-12-03] MEDS: LURASIDONE HCL 60 MG TABLET PO SCH (16:45)
[2022-12-03] MEDS: OLANZapine 10 MG RAPDIS TABLET PO SCH (21:06)
[2022-12-03] MEDS: MELATONIN 5 MG TABLET PO SCH (21:06)
[2022-12-03] MEDS: ATORVASTATIN CALCIUM 20 MG TABLET PO SCH (21:06)
[2022-12-03] MEDS: GABAPENTIN 400 MG CAPSULE PO SCH (21:07)
[2022-12-03] MEDS: MIRTAZAPINE 15 MG TABLET PO SCH (21:07)
[2022-12-04] VITALS (9 sets, daily range): BP systolic 114–132; BP diastolic 62–73; PULSE 66–84; RESP 18–19; TEMP 97.4–98.2; O2SAT 99–100
[2022-12-04] MEDS: OMEGA-3/DHA/EPA/FISH OIL 1,000 MG CAPSULE PO SCH (08:28)
[2022-12-04] MEDS: AmLODIPine BESYLATE 5 MG TABLET PO SCH (08:28)
[2022-12-04] MEDS: GABAPENTIN 300 MG CAPSULE PO SCH ×3 (08:29→16:50)
[2022-12-04] MEDS: TRIHEXYPHENIDYL HCL 5 MG TABLET PO SCH ×3 (08:29→16:51)
[2022-12-04] MEDS: DOCUSATE SODIUM 250 MG CAPSULE PO SCH ×2 (08:29→16:50)
[2022-12-04] MEDS: FLUoxetine HCL 20 MG CAPSULE PO SCH (08:29)
[2022-12-04] MEDS: LISINOPRIL 10 MG TABLET PO SCH (08:29)
[2022-12-04] MEDS: LURASIDONE HCL 60 MG TABLET PO SCH (16:51)
[2022-12-04] MEDS: ATORVASTATIN CALCIUM 20 MG TABLET PO SCH (20:40)
[2022-12-04] MEDS: MIRTAZAPINE 15 MG TABLET PO SCH (20:40)
[2022-12-04] MEDS: GABAPENTIN 400 MG CAPSULE PO SCH (20:40)
[2022-12-04] MEDS: OLANZapine 10 MG RAPDIS TABLET PO SCH (20:41)
[2022-12-04] MEDS: MELATONIN 5 MG TABLET PO SCH (20:41)
[2022-12-05] VITALS (8 sets, daily range): BP systolic 101–149; BP diastolic 64–92; PULSE 82; RESP 18–19; TEMP 97.1–97.7; O2SAT 97
[2022-12-05] MEDS: TRIHEXYPHENIDYL HCL 5 MG TABLET PO SCH ×3 (08:46→16:59)
[2022-12-05] MEDS: OMEGA-3/DHA/EPA/FISH OIL 1,000 MG CAPSULE PO SCH (08:47)
[2022-12-05] MEDS: LISINOPRIL 10 MG TABLET PO SCH (08:47)
[2022-12-05] MEDS: FLUoxetine HCL 20 MG CAPSULE PO SCH (08:47)
[2022-12-05] MEDS: AmLODIPine BESYLATE 5 MG TABLET PO SCH (08:47)
[2022-12-05] MEDS: DOCUSATE SODIUM 250 MG CAPSULE PO SCH ×2 (08:47→16:59)
[2022-12-05] MEDS: GABAPENTIN 300 MG CAPSULE PO SCH ×3 (08:47→16:59)
[2022-12-05] MEDS: LURASIDONE HCL 60 MG TABLET PO SCH (16:59)
[2022-12-05] MEDS: GABAPENTIN 400 MG CAPSULE PO SCH (20:11)
[2022-12-05] MEDS: OLANZapine 10 MG RAPDIS TABLET PO SCH (20:11)
[2022-12-05] MEDS: ATORVASTATIN CALCIUM 20 MG TABLET PO SCH (20:11)
[2022-12-05] MEDS: MIRTAZAPINE 15 MG TABLET PO SCH (20:12)
[2022-12-05] MEDS: MELATONIN 5 MG TABLET PO SCH (20:12)
[2022-12-06] VITALS (9 sets, daily range): BP systolic 119–130; BP diastolic 73–80; PULSE 70–79; RESP 16–18; TEMP 97.4–98.9; O2SAT 97
[2022-12-06] MEDS: GABAPENTIN 300 MG CAPSULE PO SCH ×3 (08:15→17:01)
[2022-12-06] MEDS: TRIHEXYPHENIDYL HCL 5 MG TABLET PO SCH ×3 (08:15→17:01)
[2022-12-06] MEDS: FLUoxetine HCL 20 MG CAPSULE PO SCH (08:16)
[2022-12-06] MEDS: OMEGA-3/DHA/EPA/FISH OIL 1,000 MG CAPSULE PO SCH (08:16)
[2022-12-06] MEDS: LISINOPRIL 10 MG TABLET PO SCH (08:16)
[2022-12-06] MEDS: AmLODIPine BESYLATE 5 MG TABLET PO SCH (08:16)
[2022-12-06] MEDS: DOCUSATE SODIUM 250 MG CAPSULE PO SCH ×2 (08:16→17:01)
[2022-12-06 08:21] LABS: GLUCOMETER DEV NAME(LOC) POC.BV; POC SARS-COV2 AG, FIA NEGATIVE (NEGATIVE)
[2022-12-06] MEDS: LURASIDONE HCL 60 MG TABLET PO SCH (17:01)
[2022-12-06] MEDS: OLANZapine 10 MG RAPDIS TABLET PO SCH (20:09)
[2022-12-06] MEDS: MELATONIN 5 MG TABLET PO SCH (20:09)
[2022-12-06] MEDS: ATORVASTATIN CALCIUM 20 MG TABLET PO SCH (20:09)
[2022-12-06] MEDS: MIRTAZAPINE 15 MG TABLET PO SCH (20:09)
[2022-12-06] MEDS: GABAPENTIN 400 MG CAPSULE PO SCH (20:09)
[2022-12-06] MEDS: IBUPROFEN 600 MG TABLET PO PRN (20:44)
[2022-12-07] VITALS (11 sets, daily range): BP systolic 134–149; BP diastolic 80–97; PULSE 83; RESP 16–18; TEMP 97.7–98.2; O2SAT 98–100
[2022-12-07] MEDS: FLUoxetine HCL 20 MG CAPSULE PO SCH (08:24)
[2022-12-07] MEDS: GABAPENTIN 300 MG CAPSULE PO SCH ×3 (08:24→17:06)
[2022-12-07] MEDS: TRIHEXYPHENIDYL HCL 5 MG TABLET PO SCH ×3 (08:24→17:06)
[2022-12-07] MEDS: AmLODIPine BESYLATE 5 MG TABLET PO SCH (08:24)
[2022-12-07] MEDS: OMEGA-3/DHA/EPA/FISH OIL 1,000 MG CAPSULE PO SCH (08:24)
[2022-12-07] MEDS: LISINOPRIL 10 MG TABLET PO SCH (08:24)
[2022-12-07] MEDS: DOCUSATE SODIUM 250 MG CAPSULE PO SCH ×2 (08:25→17:06)
[2022-12-07] MEDS: IBUPROFEN 600 MG TABLET PO PRN (08:32)
[2022-12-07] MEDS: LURASIDONE HCL 80 MG TABLET PO SCH (17:10)
[2022-12-07] MEDS: OLANZapine 5 MG RAPDIS TABLET PO SCH (20:14)
[2022-12-07] MEDS: ATORVASTATIN CALCIUM 20 MG TABLET PO SCH (20:15)
[2022-12-07] MEDS: MELATONIN 5 MG TABLET PO SCH (20:15)
[2022-12-07] MEDS: GABAPENTIN 400 MG CAPSULE PO SCH (20:15)
[2022-12-07] MEDS: MIRTAZAPINE 15 MG TABLET PO SCH (20:15)
[2022-12-08] VITALS (9 sets, daily range): BP systolic 143–148; BP diastolic 85–90; PULSE 77–90; RESP 16–18; TEMP 97.9–98.7; O2SAT 96
[2022-12-08] MEDS: LISINOPRIL 10 MG TABLET PO SCH (09:03)
[2022-12-08] MEDS: TRIHEXYPHENIDYL HCL 5 MG TABLET PO SCH ×3 (09:03→16:44)
[2022-12-08] MEDS: FLUoxetine HCL 20 MG CAPSULE PO SCH (09:03)
[2022-12-08] MEDS: AmLODIPine BESYLATE 5 MG TABLET PO SCH (09:03)
[2022-12-08] MEDS: GABAPENTIN 300 MG CAPSULE PO SCH ×3 (09:03→16:45)
[2022-12-08] MEDS: OMEGA-3/DHA/EPA/FISH OIL 1,000 MG CAPSULE PO SCH (09:03)
[2022-12-08] MEDS: DOCUSATE SODIUM 250 MG CAPSULE PO SCH ×2 (09:04→16:44)
[2022-12-08] MEDS: IBUPROFEN 600 MG TABLET PO PRN (09:11)
[2022-12-08] MEDS: LURASIDONE HCL 80 MG TABLET PO SCH (16:44)
[2022-12-08] MEDS: ATORVASTATIN CALCIUM 20 MG TABLET PO SCH (20:06)
[2022-12-08] MEDS: GABAPENTIN 400 MG CAPSULE PO SCH (20:06)
[2022-12-08] MEDS: OLANZapine 5 MG RAPDIS TABLET PO SCH (20:06)
[2022-12-08] MEDS: MELATONIN 5 MG TABLET PO SCH (20:06)
[2022-12-08] MEDS: MIRTAZAPINE 15 MG TABLET PO SCH (20:06)
[2022-12-09] VITALS (7 sets, daily range): BP systolic 130–148; BP diastolic 74–88; PULSE 80–83; RESP 18–19; TEMP 97.6–98.2; O2SAT 98
[2022-12-09] MEDS: FLUoxetine HCL 20 MG CAPSULE PO SCH (08:15)
[2022-12-09] MEDS: AmLODIPine BESYLATE 5 MG TABLET PO SCH (08:15)
[2022-12-09] MEDS: DOCUSATE SODIUM 250 MG CAPSULE PO SCH ×2 (08:15→16:40)
[2022-12-09] MEDS: TRIHEXYPHENIDYL HCL 5 MG TABLET PO SCH ×3 (08:15→16:41)
[2022-12-09] MEDS: LISINOPRIL 10 MG TABLET PO SCH (08:15)
[2022-12-09] MEDS: GABAPENTIN 300 MG CAPSULE PO SCH ×3 (08:16→16:41)
[2022-12-09] MEDS: OMEGA-3/DHA/EPA/FISH OIL 1,000 MG CAPSULE PO SCH (08:16)
[2022-12-09] MEDS: LURASIDONE HCL 80 MG TABLET PO SCH (16:41)
[2022-12-09] MEDS: OLANZapine 5 MG RAPDIS TABLET PO SCH (20:49)
[2022-12-09] MEDS: ATORVASTATIN CALCIUM 20 MG TABLET PO SCH (20:49)
[2022-12-09] MEDS: GABAPENTIN 400 MG CAPSULE PO SCH (20:49)
[2022-12-09] MEDS: MIRTAZAPINE 15 MG TABLET PO SCH (20:49)
[2022-12-09] MEDS: MELATONIN 5 MG TABLET PO SCH (20:50)
[2022-12-10] VITALS (12 sets, daily range): BP systolic 128–139; BP diastolic 72–79; PULSE 70–80; RESP 17–19; TEMP 97.5–98.6
[2022-12-10] MEDS: FLUoxetine HCL 20 MG CAPSULE PO SCH (08:55)
[2022-12-10] MEDS: OMEGA-3/DHA/EPA/FISH OIL 1,000 MG CAPSULE PO SCH (08:55)
[2022-12-10] MEDS: TRIHEXYPHENIDYL HCL 5 MG TABLET PO SCH ×3 (08:55→17:03)
[2022-12-10] MEDS: AmLODIPine BESYLATE 5 MG TABLET PO SCH (08:55)
[2022-12-10] MEDS: DOCUSATE SODIUM 250 MG CAPSULE PO SCH ×2 (08:55→17:03)
[2022-12-10] MEDS: GABAPENTIN 300 MG CAPSULE PO SCH ×3 (08:55→17:04)
[2022-12-10] MEDS: LISINOPRIL 10 MG TABLET PO SCH (08:55)
[2022-12-10] MEDS: IBUPROFEN 600 MG TABLET PO PRN ×2 (10:21→21:23)
[2022-12-10] MEDS: LURASIDONE HCL 80 MG TABLET PO SCH (17:03)
[2022-12-10] MEDS: GABAPENTIN 400 MG CAPSULE PO SCH (20:29)
[2022-12-10] MEDS: ATORVASTATIN CALCIUM 20 MG TABLET PO SCH (20:30)
[2022-12-10] MEDS: OLANZapine 5 MG RAPDIS TABLET PO SCH (20:30)
[2022-12-10] MEDS: MIRTAZAPINE 15 MG TABLET PO SCH (20:30)
[2022-12-10] MEDS: MELATONIN 5 MG TABLET PO SCH (20:30)
[2022-12-11] VITALS (8 sets, daily range): BP systolic 114–118; BP diastolic 69–79; PULSE 71–79; RESP 17–18; TEMP 98.1–98.6; O2SAT 99
[2022-12-11] MEDS: AmLODIPine BESYLATE 5 MG TABLET PO SCH (08:09)
[2022-12-11] MEDS: DOCUSATE SODIUM 250 MG CAPSULE PO SCH ×2 (08:09→16:38)
[2022-12-11] MEDS: TRIHEXYPHENIDYL HCL 5 MG TABLET PO SCH ×3 (08:09→16:38)
[2022-12-11] MEDS: FLUoxetine HCL 20 MG CAPSULE PO SCH (08:09)
[2022-12-11] MEDS: OMEGA-3/DHA/EPA/FISH OIL 1,000 MG CAPSULE PO SCH (08:09)
[2022-12-11] MEDS: LISINOPRIL 10 MG TABLET PO SCH (08:09)
[2022-12-11] MEDS: GABAPENTIN 300 MG CAPSULE PO SCH ×3 (08:09→16:38)
[2022-12-11] MEDS: LURASIDONE HCL 80 MG TABLET PO SCH (16:38)
[2022-12-11] MEDS: MIRTAZAPINE 15 MG TABLET PO SCH (20:34)
[2022-12-11] MEDS: GABAPENTIN 400 MG CAPSULE PO SCH (20:34)
[2022-12-11] MEDS: MELATONIN 5 MG TABLET PO SCH (20:34)
[2022-12-11] MEDS: OLANZapine 5 MG RAPDIS TABLET PO SCH (20:34)
[2022-12-11] MEDS: ATORVASTATIN CALCIUM 20 MG TABLET PO SCH (20:34)
[2022-12-12] VITALS (7 sets, daily range): BP systolic 126–136; BP diastolic 66–74; PULSE 75–78; RESP 18; TEMP 97–98.4; O2SAT 92–100
[2022-12-12] MEDS: LISINOPRIL 10 MG TABLET PO SCH (08:49)
[2022-12-12] MEDS: FLUoxetine HCL 20 MG CAPSULE PO SCH (08:49)
[2022-12-12] MEDS: TRIHEXYPHENIDYL HCL 5 MG TABLET PO SCH ×3 (08:49→17:12)
[2022-12-12] MEDS: OMEGA-3/DHA/EPA/FISH OIL 1,000 MG CAPSULE PO SCH (08:49)
[2022-12-12] MEDS: GABAPENTIN 300 MG CAPSULE PO SCH ×3 (08:49→17:13)
[2022-12-12] MEDS: DOCUSATE SODIUM 250 MG CAPSULE PO SCH ×2 (08:49→17:12)
[2022-12-12] MEDS: AmLODIPine BESYLATE 5 MG TABLET PO SCH (08:50)
[2022-12-12] MEDS: IBUPROFEN 600 MG TABLET PO PRN (10:18)
[2022-12-12] MEDS: LURASIDONE HCL 40 MG TABLET PO SCH (17:12)
[2022-12-12] MEDS: MIRTAZAPINE 15 MG TABLET PO SCH (20:04)
[2022-12-12] MEDS: MELATONIN 5 MG TABLET PO SCH (20:04)
[2022-12-12] MEDS: GABAPENTIN 400 MG CAPSULE PO SCH (20:04)
[2022-12-12] MEDS: OLANZapine 10 MG RAPDIS TABLET PO SCH (20:05)
[2022-12-12] MEDS: ATORVASTATIN CALCIUM 20 MG TABLET PO SCH (20:05)
[2022-12-13] VITALS (7 sets, daily range): BP systolic 120–140; BP diastolic 72–92; PULSE 73–78; RESP 18–20; TEMP 97.2–98; O2SAT 96–97
[2022-12-13] MEDS: TRIHEXYPHENIDYL HCL 5 MG TABLET PO SCH ×3 (08:26→16:55)
[2022-12-13] MEDS: DOCUSATE SODIUM 250 MG CAPSULE PO SCH ×2 (08:26→16:55)
[2022-12-13] MEDS: GABAPENTIN 300 MG CAPSULE PO SCH ×3 (08:27→16:55)
[2022-12-13] MEDS: OMEGA-3/DHA/EPA/FISH OIL 1,000 MG CAPSULE PO SCH (08:27)
[2022-12-13] MEDS: LISINOPRIL 10 MG TABLET PO SCH (08:27)
[2022-12-13] MEDS: FLUoxetine HCL 20 MG CAPSULE PO SCH (08:27)
[2022-12-13] MEDS: AmLODIPine BESYLATE 5 MG TABLET PO SCH (08:27)
[2022-12-13] MEDS: LURASIDONE HCL 40 MG TABLET PO SCH (16:55)
[2022-12-13] MEDS: ATORVASTATIN CALCIUM 20 MG TABLET PO SCH (21:06)
[2022-12-13] MEDS: OLANZapine 10 MG RAPDIS TABLET PO SCH (21:06)
[2022-12-13] MEDS: MELATONIN 5 MG TABLET PO SCH (21:07)
[2022-12-13] MEDS: MIRTAZAPINE 15 MG TABLET PO SCH (21:07)
[2022-12-13] MEDS: GABAPENTIN 400 MG CAPSULE PO SCH (21:11)
[2022-12-14] VITALS (9 sets, daily range): BP systolic 119–134; BP diastolic 60–68; PULSE 78–90; RESP 18; TEMP 97.6–98.2; O2SAT 96–97
[2022-12-14 06:21] LABS: GLUCOMETER DEV NAME(LOC) POC.BV; POC SARS-COV2 AG, FIA NEGATIVE (NEGATIVE)
[2022-12-14] MEDS: TRIHEXYPHENIDYL HCL 5 MG TABLET PO SCH ×3 (09:12→16:34)
[2022-12-14] MEDS: AmLODIPine BESYLATE 5 MG TABLET PO SCH (09:12)
[2022-12-14] MEDS: IBUPROFEN 600 MG TABLET PO PRN (09:12)
[2022-12-14] MEDS: DOCUSATE SODIUM 250 MG CAPSULE PO SCH ×2 (09:12→16:34)
[2022-12-14] MEDS: FLUoxetine HCL 20 MG CAPSULE PO SCH (09:12)
[2022-12-14] MEDS: GABAPENTIN 300 MG CAPSULE PO SCH ×3 (09:12→16:34)
[2022-12-14] MEDS: OMEGA-3/DHA/EPA/FISH OIL 1,000 MG CAPSULE PO SCH (09:13)
[2022-12-14] MEDS: LISINOPRIL 10 MG TABLET PO SCH (09:18)
[2022-12-14] MEDS: LURASIDONE HCL 40 MG TABLET PO SCH (16:34)
[2022-12-14] MEDS: OLANZapine 10 MG RAPDIS TABLET PO SCH (20:38)
[2022-12-14] MEDS: MIRTAZAPINE 15 MG TABLET PO SCH (20:38)
[2022-12-14] MEDS: GABAPENTIN 400 MG CAPSULE PO SCH (20:39)
[2022-12-14] MEDS: ATORVASTATIN CALCIUM 20 MG TABLET PO SCH (20:39)
[2022-12-14] MEDS: MELATONIN 5 MG TABLET PO SCH (20:39)
[2022-12-15] VITALS (8 sets, daily range): BP systolic 118–126; BP diastolic 62–69; PULSE 72–96; RESP 17–18; TEMP 97.5–98.4; O2SAT 97
[2022-12-15] MEDS: DOCUSATE SODIUM 250 MG CAPSULE PO SCH ×2 (08:32→16:31)
[2022-12-15] MEDS: TRIHEXYPHENIDYL HCL 5 MG TABLET PO SCH ×3 (08:32→16:31)
[2022-12-15] MEDS: GABAPENTIN 300 MG CAPSULE PO SCH ×3 (08:33→16:32)
[2022-12-15] MEDS: AmLODIPine BESYLATE 5 MG TABLET PO SCH (08:33)
[2022-12-15] MEDS: LISINOPRIL 10 MG TABLET PO SCH (08:33)
[2022-12-15] MEDS: OMEGA-3/DHA/EPA/FISH OIL 1,000 MG CAPSULE PO SCH (08:33)
[2022-12-15] MEDS: FLUoxetine HCL 20 MG CAPSULE PO SCH (08:35)
[2022-12-15] MEDS: LURASIDONE HCL 40 MG TABLET PO SCH (16:31)
[2022-12-15] MEDS: ATORVASTATIN CALCIUM 20 MG TABLET PO SCH (20:33)
[2022-12-15] MEDS: MIRTAZAPINE 15 MG TABLET PO SCH (20:34)
[2022-12-15] MEDS: OLANZapine 10 MG RAPDIS TABLET PO SCH (20:34)
[2022-12-15] MEDS: MELATONIN 5 MG TABLET PO SCH (20:34)
[2022-12-15] MEDS: GABAPENTIN 400 MG CAPSULE PO SCH (20:34)
[2022-12-16] VITALS (9 sets, daily range): BP systolic 118–131; BP diastolic 66–70; PULSE 80–96; RESP 17–19; TEMP 97.6–98.9; O2SAT 96
[2022-12-16] MEDS: DOCUSATE SODIUM 250 MG CAPSULE PO SCH ×2 (08:29→16:32)
[2022-12-16] MEDS: TRIHEXYPHENIDYL HCL 5 MG TABLET PO SCH ×3 (08:29→16:32)
[2022-12-16] MEDS: GABAPENTIN 300 MG CAPSULE PO SCH ×3 (08:29→16:32)
[2022-12-16] MEDS: OMEGA-3/DHA/EPA/FISH OIL 1,000 MG CAPSULE PO SCH (08:29)
[2022-12-16] MEDS: AmLODIPine BESYLATE 5 MG TABLET PO SCH (08:29)
[2022-12-16] MEDS: FLUoxetine HCL 20 MG CAPSULE PO SCH (08:29)
[2022-12-16] MEDS: LISINOPRIL 10 MG TABLET PO SCH (08:30)
[2022-12-16] MEDS: IBUPROFEN 600 MG TABLET PO PRN (09:24)
[2022-12-16] MEDS: LURASIDONE HCL 40 MG TABLET PO SCH (16:32)
[2022-12-16] MEDS: MELATONIN 5 MG TABLET PO SCH (20:47)
[2022-12-16] MEDS: ATORVASTATIN CALCIUM 20 MG TABLET PO SCH (20:47)
[2022-12-16] MEDS: OLANZapine 10 MG RAPDIS TABLET PO SCH (20:47)
[2022-12-16] MEDS: MIRTAZAPINE 15 MG TABLET PO SCH (20:47)
[2022-12-16] MEDS: GABAPENTIN 400 MG CAPSULE PO SCH (20:47)
[2022-12-17] VITALS (9 sets, daily range): BP systolic 121–137; BP diastolic 69–85; PULSE 87–94; RESP 17–18; TEMP 97–98.3; O2SAT 96–98
[2022-12-17] MEDS: OMEGA-3/DHA/EPA/FISH OIL 1,000 MG CAPSULE PO SCH (08:26)
[2022-12-17] MEDS: TRIHEXYPHENIDYL HCL 5 MG TABLET PO SCH ×3 (08:26→16:54)
[2022-12-17] MEDS: FLUoxetine HCL 20 MG CAPSULE PO SCH (08:26)
[2022-12-17] MEDS: DOCUSATE SODIUM 250 MG CAPSULE PO SCH ×2 (08:26→16:54)
[2022-12-17] MEDS: AmLODIPine BESYLATE 5 MG TABLET PO SCH (08:27)
[2022-12-17] MEDS: GABAPENTIN 300 MG CAPSULE PO SCH ×3 (08:27→16:57)
[2022-12-17] MEDS: LISINOPRIL 10 MG TABLET PO SCH (08:27)
[2022-12-17] MEDS: IBUPROFEN 600 MG TABLET PO PRN (10:17)
[2022-12-17] MEDS: LURASIDONE HCL 40 MG TABLET PO SCH (16:54)
[2022-12-17] MEDS: OLANZapine 10 MG RAPDIS TABLET PO SCH (20:06)
[2022-12-17] MEDS: ATORVASTATIN CALCIUM 20 MG TABLET PO SCH (20:07)
[2022-12-17] MEDS: MIRTAZAPINE 15 MG TABLET PO SCH (20:07)
[2022-12-17] MEDS: MELATONIN 5 MG TABLET PO SCH (20:07)
[2022-12-17] MEDS: GABAPENTIN 400 MG CAPSULE PO SCH (20:07)
[2022-12-18] VITALS (9 sets, daily range): BP systolic 118–123; BP diastolic 71–72; PULSE 77–78; RESP 18; TEMP 97.8–98.2; O2SAT 96
[2022-12-18] MEDS: LISINOPRIL 10 MG TABLET PO SCH (08:41)
[2022-12-18] MEDS: OMEGA-3/DHA/EPA/FISH OIL 1,000 MG CAPSULE PO SCH (08:41)
[2022-12-18] MEDS: FLUoxetine HCL 20 MG CAPSULE PO SCH (08:41)
[2022-12-18] MEDS: GABAPENTIN 300 MG CAPSULE PO SCH ×3 (08:41→16:14)
[2022-12-18] MEDS: DOCUSATE SODIUM 250 MG CAPSULE PO SCH ×2 (08:41→16:14)
[2022-12-18] MEDS: AmLODIPine BESYLATE 5 MG TABLET PO SCH (08:41)
[2022-12-18] MEDS: TRIHEXYPHENIDYL HCL 5 MG TABLET PO SCH ×3 (08:41→16:31)
[2022-12-18] MEDS: IBUPROFEN 600 MG TABLET PO PRN (12:05)
[2022-12-18] MEDS: MELATONIN 5 MG TABLET PO SCH (20:07)
[2022-12-18] MEDS: OLANZapine 10 MG RAPDIS TABLET PO SCH (20:08)
[2022-12-18] MEDS: MIRTAZAPINE 15 MG TABLET PO SCH (20:09)
[2022-12-18] MEDS: GABAPENTIN 400 MG CAPSULE PO SCH (20:09)
[2022-12-18] MEDS: ATORVASTATIN CALCIUM 20 MG TABLET PO SCH (22:22)
[2022-12-19] VITALS (11 sets, daily range): BP systolic 125–129; BP diastolic 58–87; PULSE 77–83; RESP 16–18; TEMP 97.5–98.2
[2022-12-19] MEDS: FLUoxetine HCL 20 MG CAPSULE PO SCH (08:16)
[2022-12-19] MEDS: DOCUSATE SODIUM 250 MG CAPSULE PO SCH ×2 (08:16→16:25)
[2022-12-19] MEDS: GABAPENTIN 300 MG CAPSULE PO SCH ×3 (08:16→16:25)
[2022-12-19] MEDS: LISINOPRIL 10 MG TABLET PO SCH (08:16)
[2022-12-19] MEDS: TRIHEXYPHENIDYL HCL 5 MG TABLET PO SCH ×3 (08:16→16:25)
[2022-12-19] MEDS: AmLODIPine BESYLATE 5 MG TABLET PO SCH (08:16)
[2022-12-19] MEDS: OMEGA-3/DHA/EPA/FISH OIL 1,000 MG CAPSULE PO SCH (08:17)
[2022-12-19] MEDS: IBUPROFEN 600 MG TABLET PO PRN ×2 (09:21→20:32)
[2022-12-19] MEDS: OLANZapine 10 MG RAPDIS TABLET PO SCH (20:31)
[2022-12-19] MEDS: GABAPENTIN 400 MG CAPSULE PO SCH (20:31)
[2022-12-19] MEDS: ATORVASTATIN CALCIUM 20 MG TABLET PO SCH (20:31)
[2022-12-19] MEDS: MELATONIN 5 MG TABLET PO SCH (20:32)
[2022-12-19] MEDS: MIRTAZAPINE 15 MG TABLET PO SCH (20:32)
[2022-12-20] VITALS (9 sets, daily range): BP systolic 108–128; BP diastolic 60–79; PULSE 82–85; RESP 17–20; TEMP 96.9–98; O2SAT 96
[2022-12-20 04:12] LABS: GLUCOMETER DEV NAME(LOC) POC.BV; POC SARS-COV2 AG, FIA NEGATIVE (NEGATIVE)
[2022-12-20] MEDS: OMEGA-3/DHA/EPA/FISH OIL 1,000 MG CAPSULE PO SCH (09:11)
[2022-12-20] MEDS: TRIHEXYPHENIDYL HCL 5 MG TABLET PO SCH ×3 (09:11→16:26)
[2022-12-20] MEDS: DOCUSATE SODIUM 250 MG CAPSULE PO SCH ×2 (09:11→16:26)
[2022-12-20] MEDS: LISINOPRIL 10 MG TABLET PO SCH (09:11)
[2022-12-20] MEDS: GABAPENTIN 300 MG CAPSULE PO SCH ×3 (09:11→16:26)
[2022-12-20] MEDS: FLUoxetine HCL 20 MG CAPSULE PO SCH (09:12)
[2022-12-20] MEDS: AmLODIPine BESYLATE 5 MG TABLET PO SCH (09:12)
[2022-12-20] MEDS: IBUPROFEN 600 MG TABLET PO PRN (10:39)
[2022-12-20] MEDS: OLANZapine 10 MG RAPDIS TABLET PO SCH (20:07)
[2022-12-20] MEDS: GABAPENTIN 400 MG CAPSULE PO SCH (20:07)
[2022-12-20] MEDS: MIRTAZAPINE 15 MG TABLET PO SCH (20:07)
[2022-12-20] MEDS: MELATONIN 5 MG TABLET PO SCH (20:07)
[2022-12-20] MEDS: ATORVASTATIN CALCIUM 20 MG TABLET PO SCH (20:07)
[2022-12-21] VITALS (11 sets, daily range): BP systolic 142–146; BP diastolic 66–68; PULSE 79–81; RESP 18–19; TEMP 97.6–97.9; O2SAT 97–99
[2022-12-21] MEDS: DOCUSATE SODIUM 250 MG CAPSULE PO SCH ×2 (08:22→16:42)
[2022-12-21] MEDS: TRIHEXYPHENIDYL HCL 5 MG TABLET PO SCH ×3 (08:22→16:42)
[2022-12-21] MEDS: GABAPENTIN 300 MG CAPSULE PO SCH ×3 (08:23→16:42)
[2022-12-21] MEDS: OMEGA-3/DHA/EPA/FISH OIL 1,000 MG CAPSULE PO SCH (08:23)
[2022-12-21] MEDS: LISINOPRIL 10 MG TABLET PO SCH (08:23)
[2022-12-21] MEDS: AmLODIPine BESYLATE 5 MG TABLET PO SCH (08:23)
[2022-12-21] MEDS: FLUoxetine HCL 20 MG CAPSULE PO SCH (08:23)
[2022-12-21] MEDS: IBUPROFEN 600 MG TABLET PO PRN (10:33)
[2022-12-21] MEDS: ATORVASTATIN CALCIUM 20 MG TABLET PO SCH (20:09)
[2022-12-21] MEDS: OLANZapine 10 MG RAPDIS TABLET PO SCH (20:09)
[2022-12-21] MEDS: GABAPENTIN 400 MG CAPSULE PO SCH (20:10)
[2022-12-21] MEDS: MELATONIN 5 MG TABLET PO SCH (20:10)
[2022-12-21] MEDS: MIRTAZAPINE 15 MG TABLET PO SCH (20:10)
[2022-12-22] VITALS (10 sets, daily range): BP systolic 144–169; BP diastolic 86–102; PULSE 76–85; RESP 18; TEMP 95.5–98; O2SAT 97–99
[2022-12-22] MEDS: TRIHEXYPHENIDYL HCL 5 MG TABLET PO SCH ×3 (08:18→16:54)
[2022-12-22] MEDS: LISINOPRIL 10 MG TABLET PO SCH (08:18)
[2022-12-22] MEDS: DOCUSATE SODIUM 250 MG CAPSULE PO SCH ×2 (08:18→16:54)
[2022-12-22] MEDS: GABAPENTIN 300 MG CAPSULE PO SCH ×3 (08:19→16:55)
[2022-12-22] MEDS: OMEGA-3/DHA/EPA/FISH OIL 1,000 MG CAPSULE PO SCH (08:19)
[2022-12-22] MEDS: AmLODIPine BESYLATE 5 MG TABLET PO SCH (08:19)
[2022-12-22] MEDS: FLUoxetine HCL 20 MG CAPSULE PO SCH (08:20)
[2022-12-22] MEDS: IBUPROFEN 600 MG TABLET PO PRN (10:07)
[2022-12-22] MEDS: ATORVASTATIN CALCIUM 20 MG TABLET PO SCH (21:58)
[2022-12-22] MEDS: MELATONIN 5 MG TABLET PO SCH (21:58)
[2022-12-22] MEDS: OLANZapine 10 MG RAPDIS TABLET PO SCH (21:58)
[2022-12-22] MEDS: MIRTAZAPINE 15 MG TABLET PO SCH (21:59)
[2022-12-22] MEDS: GABAPENTIN 400 MG CAPSULE PO SCH (21:59)
[2022-12-23] VITALS (13 sets, daily range): BP systolic 137–138; BP diastolic 89–94; PULSE 77–98; RESP 16–18; TEMP 96.5–98.2; O2SAT 95–99
[2022-12-23] MEDS: TRIHEXYPHENIDYL HCL 5 MG TABLET PO SCH ×3 (08:12→16:53)
[2022-12-23] MEDS: AmLODIPine BESYLATE 5 MG TABLET PO SCH (08:12)
[2022-12-23] MEDS: OMEGA-3/DHA/EPA/FISH OIL 1,000 MG CAPSULE PO SCH (08:12)
[2022-12-23] MEDS: FLUoxetine HCL 20 MG CAPSULE PO SCH (08:12)
[2022-12-23] MEDS: LISINOPRIL 10 MG TABLET PO SCH (08:12)
[2022-12-23] MEDS: GABAPENTIN 300 MG CAPSULE PO SCH ×3 (08:12→16:53)
[2022-12-23] MEDS: DOCUSATE SODIUM 250 MG CAPSULE PO SCH ×2 (08:12→16:53)
[2022-12-23] MEDS: IBUPROFEN 600 MG TABLET PO PRN ×2 (08:19→18:14)
[2022-12-23] MEDS: ACETAMINOPHEN 325 MG TABLET PO PRN (11:23)
[2022-12-23] MEDS: GABAPENTIN 400 MG CAPSULE PO SCH (20:31)
[2022-12-23] MEDS: ATORVASTATIN CALCIUM 20 MG TABLET PO SCH (20:32)
[2022-12-23] MEDS: MIRTAZAPINE 15 MG TABLET PO SCH (20:32)
[2022-12-23] MEDS: OLANZapine 10 MG RAPDIS TABLET PO SCH (20:32)
[2022-12-23] MEDS: MELATONIN 5 MG TABLET PO SCH (20:32)
[2022-12-24] VITALS (9 sets, daily range): BP systolic 110–144; BP diastolic 66–81; PULSE 92–93; RESP 16–18; TEMP 97–98.3; O2SAT 95
[2022-12-24] MEDS: TRIHEXYPHENIDYL HCL 5 MG TABLET PO SCH ×3 (08:36→16:31)
[2022-12-24] MEDS: GABAPENTIN 300 MG CAPSULE PO SCH ×3 (08:37→16:31)
[2022-12-24] MEDS: DOCUSATE SODIUM 250 MG CAPSULE PO SCH ×2 (08:37→16:31)
[2022-12-24] MEDS: FLUoxetine HCL 20 MG CAPSULE PO SCH (08:37)
[2022-12-24] MEDS: AmLODIPine BESYLATE 5 MG TABLET PO SCH (08:37)
[2022-12-24] MEDS: OMEGA-3/DHA/EPA/FISH OIL 1,000 MG CAPSULE PO SCH (08:37)
[2022-12-24] MEDS: LISINOPRIL 10 MG TABLET PO SCH (08:38)
[2022-12-24] MEDS: IBUPROFEN 600 MG TABLET PO PRN (09:55)
[2022-12-24] MEDS: ATORVASTATIN CALCIUM 20 MG TABLET PO SCH (20:51)
[2022-12-24] MEDS: MELATONIN 5 MG TABLET PO SCH (20:51)
[2022-12-24] MEDS: MIRTAZAPINE 15 MG TABLET PO SCH (20:51)
[2022-12-24] MEDS: GABAPENTIN 400 MG CAPSULE PO SCH (20:51)
[2022-12-24] MEDS: OLANZapine 10 MG RAPDIS TABLET PO SCH (20:52)
[2022-12-25] VITALS (10 sets, daily range): BP systolic 126–160; BP diastolic 76–98; PULSE 69–88; RESP 17–19; TEMP 97–98.2; O2SAT 97–100
[2022-12-25] MEDS: TRIHEXYPHENIDYL HCL 5 MG TABLET PO SCH ×3 (08:23→16:38)
[2022-12-25] MEDS: DOCUSATE SODIUM 250 MG CAPSULE PO SCH ×2 (08:23→16:38)
[2022-12-25] MEDS: AmLODIPine BESYLATE 5 MG TABLET PO SCH (08:24)
[2022-12-25] MEDS: FLUoxetine HCL 20 MG CAPSULE PO SCH (08:24)
[2022-12-25] MEDS: OMEGA-3/DHA/EPA/FISH OIL 1,000 MG CAPSULE PO SCH (08:24)
[2022-12-25] MEDS: GABAPENTIN 300 MG CAPSULE PO SCH ×3 (08:24→16:38)
[2022-12-25] MEDS: LISINOPRIL 10 MG TABLET PO SCH (08:24)
[2022-12-25] MEDS: IBUPROFEN 600 MG TABLET PO PRN (18:08)
[2022-12-25] MEDS: MIRTAZAPINE 15 MG TABLET PO SCH (21:27)
[2022-12-25] MEDS: GABAPENTIN 400 MG CAPSULE PO SCH (21:27)
[2022-12-25] MEDS: MELATONIN 5 MG TABLET PO SCH (21:27)
[2022-12-25] MEDS: ATORVASTATIN CALCIUM 20 MG TABLET PO SCH (21:27)
[2022-12-25] MEDS: OLANZapine 10 MG RAPDIS TABLET PO SCH (21:28)
[2022-12-26] VITALS (12 sets, daily range): BP systolic 127–160; BP diastolic 68–98; PULSE 70–82; RESP 17–18; TEMP 97.2–98.5; O2SAT 98–100
[2022-12-26] MEDS: LISINOPRIL 10 MG TABLET PO SCH (09:13)
[2022-12-26] MEDS: FLUoxetine HCL 20 MG CAPSULE PO SCH (09:13)
[2022-12-26] MEDS: GABAPENTIN 300 MG CAPSULE PO SCH ×3 (09:13→16:37)
[2022-12-26] MEDS: AmLODIPine BESYLATE 5 MG TABLET PO SCH (09:13)
[2022-12-26] MEDS: DOCUSATE SODIUM 250 MG CAPSULE PO SCH ×2 (09:13→16:36)
[2022-12-26] MEDS: OMEGA-3/DHA/EPA/FISH OIL 1,000 MG CAPSULE PO SCH (09:13)
[2022-12-26] MEDS: TRIHEXYPHENIDYL HCL 5 MG TABLET PO SCH ×3 (09:13→16:37)
[2022-12-26] MEDS: IBUPROFEN 600 MG TABLET PO PRN (09:14)
[2022-12-26] MEDS: ACETAMINOPHEN 325 MG TABLET PO PRN (16:34)
[2022-12-26] MEDS: ATORVASTATIN CALCIUM 20 MG TABLET PO SCH (20:39)
[2022-12-26] MEDS: MELATONIN 5 MG TABLET PO SCH (20:40)
[2022-12-26] MEDS: MIRTAZAPINE 15 MG TABLET PO SCH (20:40)
[2022-12-26] MEDS: GABAPENTIN 400 MG CAPSULE PO SCH (20:40)
[2022-12-26] MEDS: OLANZapine 10 MG RAPDIS TABLET PO SCH (20:40)
[2022-12-27] VITALS (10 sets, daily range): BP systolic 125–132; BP diastolic 64–76; PULSE 74–78; RESP 18–19; TEMP 97.9–98.4; O2SAT 96–98
[2022-12-27 06:21] LABS: GLUCOMETER DEV NAME(LOC) POC.BV; POC SARS-COV2 AG, FIA NEGATIVE (NEGATIVE)
[2022-12-27] MEDS: TRIHEXYPHENIDYL HCL 5 MG TABLET PO SCH ×3 (09:09→16:39)
[2022-12-27] MEDS: AmLODIPine BESYLATE 5 MG TABLET PO SCH (09:09)
[2022-12-27] MEDS: LISINOPRIL 10 MG TABLET PO SCH (09:09)
[2022-12-27] MEDS: FLUoxetine HCL 20 MG CAPSULE PO SCH (09:10)
[2022-12-27] MEDS: DOCUSATE SODIUM 250 MG CAPSULE PO SCH ×2 (09:10→16:39)
[2022-12-27] MEDS: GABAPENTIN 300 MG CAPSULE PO SCH ×3 (09:10→16:39)
[2022-12-27] MEDS: OMEGA-3/DHA/EPA/FISH OIL 1,000 MG CAPSULE PO SCH (09:10)
[2022-12-27] MEDS: IBUPROFEN 600 MG TABLET PO PRN ×2 (09:15→15:32)
[2022-12-27] MEDS: OLANZapine 10 MG RAPDIS TABLET PO SCH (21:30)
[2022-12-27] MEDS: MIRTAZAPINE 15 MG TABLET PO SCH (21:30)
[2022-12-27] MEDS: GABAPENTIN 400 MG CAPSULE PO SCH (21:31)
[2022-12-27] MEDS: MELATONIN 5 MG TABLET PO SCH (21:32)
[2022-12-27] MEDS: ATORVASTATIN CALCIUM 20 MG TABLET PO SCH (21:34)
[2022-12-28] VITALS (11 sets, daily range): BP systolic 120–151; BP diastolic 60–75; PULSE 82–91; RESP 16–19; TEMP 97.9–98.4; O2SAT 100
[2022-12-28] MEDS: GABAPENTIN 300 MG CAPSULE PO SCH ×3 (08:07→16:48)
[2022-12-28] MEDS: OMEGA-3/DHA/EPA/FISH OIL 1,000 MG CAPSULE PO SCH (08:07)
[2022-12-28] MEDS: LISINOPRIL 10 MG TABLET PO SCH (08:07)
[2022-12-28] MEDS: AmLODIPine BESYLATE 5 MG TABLET PO SCH (08:08)
[2022-12-28] MEDS: TRIHEXYPHENIDYL HCL 5 MG TABLET PO SCH ×3 (08:08→16:47)
[2022-12-28] MEDS: FLUoxetine HCL 20 MG CAPSULE PO SCH (08:08)
[2022-12-28] MEDS: DOCUSATE SODIUM 250 MG CAPSULE PO SCH ×2 (08:08→16:49)
[2022-12-28] MEDS: IBUPROFEN 600 MG TABLET PO PRN (11:46)
[2022-12-28] MEDS: ACETAMINOPHEN 325 MG TABLET PO PRN (16:49)
[2022-12-28] MEDS: MELATONIN 5 MG TABLET PO SCH (20:33)
[2022-12-28] MEDS: OLANZapine 10 MG RAPDIS TABLET PO SCH (20:34)
[2022-12-28] MEDS: MIRTAZAPINE 15 MG TABLET PO SCH (20:34)
[2022-12-28] MEDS: ATORVASTATIN CALCIUM 20 MG TABLET PO SCH (20:34)
[2022-12-28] MEDS: GABAPENTIN 400 MG CAPSULE PO SCH (20:34)
[2022-12-29] VITALS (11 sets, daily range): BP systolic 137; BP diastolic 74; PULSE 75–78; RESP 17–18; TEMP 97.6–98.1; O2SAT 100
[2022-12-29] MEDS: LISINOPRIL 10 MG TABLET PO SCH (08:34)
[2022-12-29] MEDS: TRIHEXYPHENIDYL HCL 5 MG TABLET PO SCH ×3 (08:34→16:10)
[2022-12-29] MEDS: DOCUSATE SODIUM 250 MG CAPSULE PO SCH ×2 (08:34→16:10)
[2022-12-29] MEDS: OMEGA-3/DHA/EPA/FISH OIL 1,000 MG CAPSULE PO SCH (08:34)
[2022-12-29] MEDS: AmLODIPine BESYLATE 5 MG TABLET PO SCH (08:34)
[2022-12-29] MEDS: GABAPENTIN 300 MG CAPSULE PO SCH ×3 (08:34→16:10)
[2022-12-29] MEDS: FLUoxetine HCL 20 MG CAPSULE PO SCH (08:34)
[2022-12-29] MEDS: IBUPROFEN 600 MG TABLET PO PRN (10:05)
[2022-12-29] MEDS: ACETAMINOPHEN 325 MG TABLET PO PRN (12:48)
[2022-12-29] MEDS: OLANZapine 10 MG RAPDIS TABLET PO SCH (20:18)
[2022-12-29] MEDS: ATORVASTATIN CALCIUM 20 MG TABLET PO SCH (20:18)
[2022-12-29] MEDS: GABAPENTIN 400 MG CAPSULE PO SCH (20:18)
[2022-12-29] MEDS: MELATONIN 5 MG TABLET PO SCH (20:18)
[2022-12-29] MEDS: MIRTAZAPINE 15 MG TABLET PO SCH (20:18)
[2022-12-30] VITALS (9 sets, daily range): BP systolic 116–117; BP diastolic 72–78; PULSE 76–94; RESP 18–19; TEMP 97.3–98.1; O2SAT 98–99
[2022-12-30] MEDS: LISINOPRIL 10 MG TABLET PO SCH (08:35)
[2022-12-30] MEDS: OMEGA-3/DHA/EPA/FISH OIL 1,000 MG CAPSULE PO SCH (08:35)
[2022-12-30] MEDS: TRIHEXYPHENIDYL HCL 5 MG TABLET PO SCH ×3 (08:35→16:40)
[2022-12-30] MEDS: FLUoxetine HCL 20 MG CAPSULE PO SCH (08:36)
[2022-12-30] MEDS: DOCUSATE SODIUM 250 MG CAPSULE PO SCH ×2 (08:36→16:40)
[2022-12-30] MEDS: GABAPENTIN 300 MG CAPSULE PO SCH ×3 (08:36→16:40)
[2022-12-30] MEDS: AmLODIPine BESYLATE 5 MG TABLET PO SCH (08:36)
[2022-12-30] MEDS: IBUPROFEN 600 MG TABLET PO PRN (10:40)
[2022-12-30] MEDS: MIRTAZAPINE 15 MG TABLET PO SCH (20:33)
[2022-12-30] MEDS: MELATONIN 5 MG TABLET PO SCH (20:34)
[2022-12-30] MEDS: ATORVASTATIN CALCIUM 20 MG TABLET PO SCH (20:34)
[2022-12-30] MEDS: OLANZapine 10 MG RAPDIS TABLET PO SCH (20:34)
[2022-12-30] MEDS: GABAPENTIN 400 MG CAPSULE PO SCH (20:34)
[2022-12-31] VITALS (7 sets, daily range): BP systolic 124–129; BP diastolic 62–68; PULSE 72–88; RESP 18; TEMP 97.7–98.2; O2SAT 96–98
[2022-12-31] MEDS: LISINOPRIL 10 MG TABLET PO SCH (08:21)
[2022-12-31] MEDS: DOCUSATE SODIUM 250 MG CAPSULE PO SCH ×2 (08:21→17:07)
[2022-12-31] MEDS: OMEGA-3/DHA/EPA/FISH OIL 1,000 MG CAPSULE PO SCH (08:21)
[2022-12-31] MEDS: AmLODIPine BESYLATE 5 MG TABLET PO SCH (08:21)
[2022-12-31] MEDS: TRIHEXYPHENIDYL HCL 5 MG TABLET PO SCH ×3 (08:21→17:06)
[2022-12-31] MEDS: GABAPENTIN 300 MG CAPSULE PO SCH ×3 (08:22→17:07)
[2022-12-31] MEDS: FLUoxetine HCL 20 MG CAPSULE PO SCH (08:22)
[2022-12-31] MEDS: OLANZapine 10 MG RAPDIS TABLET PO SCH (20:24)
[2022-12-31] MEDS: MELATONIN 5 MG TABLET PO SCH (20:24)
[2022-12-31] MEDS: MIRTAZAPINE 15 MG TABLET PO SCH (20:25)
[2022-12-31] MEDS: GABAPENTIN 400 MG CAPSULE PO SCH (20:25)
[2022-12-31] MEDS: ATORVASTATIN CALCIUM 20 MG TABLET PO SCH (20:25)
[2023-01-01] VITALS (8 sets, daily range): BP systolic 142–151; BP diastolic 72–83; PULSE 77–87; RESP 18–19; TEMP 96.3–98.1; O2SAT 97–99
[2023-01-01] MEDS: GABAPENTIN 300 MG CAPSULE PO SCH ×3 (08:14→17:08)
[2023-01-01] MEDS: AmLODIPine BESYLATE 5 MG TABLET PO SCH (08:14)
[2023-01-01] MEDS: IBUPROFEN 600 MG TABLET PO PRN (08:14)
[2023-01-01] MEDS: LISINOPRIL 10 MG TABLET PO SCH (08:14)
[2023-01-01] MEDS: DOCUSATE SODIUM 250 MG CAPSULE PO SCH ×2 (08:15→17:08)
[2023-01-01] MEDS: TRIHEXYPHENIDYL HCL 5 MG TABLET PO SCH ×3 (08:15→17:08)
[2023-01-01] MEDS: FLUoxetine HCL 20 MG CAPSULE PO SCH (08:15)
[2023-01-01] MEDS: OMEGA-3/DHA/EPA/FISH OIL 1,000 MG CAPSULE PO SCH (08:15)
[2023-01-01] MEDS: MIRTAZAPINE 15 MG TABLET PO SCH (20:13)
[2023-01-01] MEDS: MELATONIN 5 MG TABLET PO SCH (20:13)
[2023-01-01] MEDS: OLANZapine 10 MG RAPDIS TABLET PO SCH (20:13)
[2023-01-01] MEDS: GABAPENTIN 400 MG CAPSULE PO SCH (20:13)
[2023-01-01] MEDS: ATORVASTATIN CALCIUM 20 MG TABLET PO SCH (20:13)
[2023-01-02 00:21] VITALS: TEMP 96.7
[2023-01-02 04:09] VITALS: TEMP 97.5
[2023-01-02 08:07] VITALS: BP 149/89; PULSE 86; RESP 18; TEMP 97.8; O2SAT 97
[2023-01-02] MEDS: OMEGA-3/DHA/EPA/FISH OIL 1,000 MG CAPSULE PO SCH (08:13)
[2023-01-02] MEDS: FLUoxetine HCL 20 MG CAPSULE PO SCH (08:13)
[2023-01-02] MEDS: GABAPENTIN 300 MG CAPSULE PO SCH ×3 (08:13→16:41)
[2023-01-02] MEDS: DOCUSATE SODIUM 250 MG CAPSULE PO SCH ×2 (08:13→16:41)
[2023-01-02] MEDS: AmLODIPine BESYLATE 5 MG TABLET PO SCH (08:14)
[2023-01-02] MEDS: LISINOPRIL 10 MG TABLET PO SCH (08:14)
[2023-01-02] MEDS: TRIHEXYPHENIDYL HCL 5 MG TABLET PO SCH ×3 (08:14→16:40)
[2023-01-02] MEDS: ACETAMINOPHEN 325 MG TABLET PO PRN (08:20)
[2023-01-02 14:19] VITALS: TEMP 98.2
[2023-01-02 19:38] VITALS: TEMP 98
[2023-01-02 20:22] VITALS: BP 152/87; PULSE 81; RESP 18; TEMP 97.8; O2SAT 96
[2023-01-02] MEDS: MIRTAZAPINE 15 MG TABLET PO SCH (21:04)
[2023-01-02] MEDS: ATORVASTATIN CALCIUM 20 MG TABLET PO SCH (21:04)
[2023-01-02] MEDS: GABAPENTIN 400 MG CAPSULE PO SCH (21:04)
[2023-01-02] MEDS: MELATONIN 5 MG TABLET PO SCH (21:04)
[2023-01-02] MEDS: OLANZapine 10 MG RAPDIS TABLET PO SCH (21:04)
[2023-01-03] VITALS (9 sets, daily range): BP systolic 139–143; BP diastolic 71–72; PULSE 77–81; RESP 17–18; TEMP 96.5–98.2; O2SAT 98
[2023-01-03] MEDS: OMEGA-3/DHA/EPA/FISH OIL 1,000 MG CAPSULE PO SCH (08:15)
[2023-01-03] MEDS: LISINOPRIL 10 MG TABLET PO SCH (08:15)
[2023-01-03] MEDS: TRIHEXYPHENIDYL HCL 5 MG TABLET PO SCH ×3 (08:15→16:49)
[2023-01-03] MEDS: FLUoxetine HCL 20 MG CAPSULE PO SCH (08:15)
[2023-01-03] MEDS: DOCUSATE SODIUM 250 MG CAPSULE PO SCH ×2 (08:15→16:49)
[2023-01-03] MEDS: GABAPENTIN 300 MG CAPSULE PO SCH ×3 (08:19→16:50)
[2023-01-03] MEDS: AmLODIPine BESYLATE 5 MG TABLET PO SCH (08:19)
[2023-01-03] MEDS: MIRTAZAPINE 15 MG TABLET PO SCH (20:54)
[2023-01-03] MEDS: MELATONIN 5 MG TABLET PO SCH (20:56)
[2023-01-03] MEDS: OLANZapine 10 MG RAPDIS TABLET PO SCH (20:56)
[2023-01-03] MEDS: ATORVASTATIN CALCIUM 20 MG TABLET PO SCH (20:56)
[2023-01-03] MEDS: GABAPENTIN 400 MG CAPSULE PO SCH (21:24)
[2023-01-04] VITALS (10 sets, daily range): BP systolic 130–142; BP diastolic 64–72; PULSE 75–89; RESP 18–19; TEMP 97.7–98.1; O2SAT 95–97
[2023-01-04] MEDS: TRIHEXYPHENIDYL HCL 5 MG TABLET PO SCH ×3 (08:03→16:16)
[2023-01-04] MEDS: DOCUSATE SODIUM 250 MG CAPSULE PO SCH ×2 (08:03→16:16)
[2023-01-04] MEDS: FLUoxetine HCL 20 MG CAPSULE PO SCH (08:04)
[2023-01-04] MEDS: OMEGA-3/DHA/EPA/FISH OIL 1,000 MG CAPSULE PO SCH (08:04)
[2023-01-04] MEDS: GABAPENTIN 300 MG CAPSULE PO SCH ×3 (08:04→16:16)
[2023-01-04] MEDS: IBUPROFEN 600 MG TABLET PO PRN (08:04)
[2023-01-04] MEDS: LISINOPRIL 10 MG TABLET PO SCH (08:04)
[2023-01-04] MEDS: AmLODIPine BESYLATE 5 MG TABLET PO SCH (08:04)
[2023-01-04] MEDS: ACETAMINOPHEN 325 MG TABLET PO PRN (16:55)
[2023-01-04] MEDS: MIRTAZAPINE 15 MG TABLET PO SCH (20:09)
[2023-01-04] MEDS: ATORVASTATIN CALCIUM 20 MG TABLET PO SCH (20:09)
[2023-01-04] MEDS: GABAPENTIN 400 MG CAPSULE PO SCH (20:09)
[2023-01-04] MEDS: OLANZapine 10 MG RAPDIS TABLET PO SCH (20:10)
[2023-01-04] MEDS: MELATONIN 5 MG TABLET PO SCH (20:10)
[2023-01-05] VITALS (8 sets, daily range): BP systolic 127–134; BP diastolic 61–70; PULSE 75–87; RESP 17–18; TEMP 97.7–98.2; O2SAT 95–97
[2023-01-05] MEDS: FLUoxetine HCL 20 MG CAPSULE PO SCH (08:34)
[2023-01-05] MEDS: LISINOPRIL 10 MG TABLET PO SCH (08:34)
[2023-01-05] MEDS: AmLODIPine BESYLATE 5 MG TABLET PO SCH (08:34)
[2023-01-05] MEDS: TRIHEXYPHENIDYL HCL 5 MG TABLET PO SCH ×3 (08:34→16:38)
[2023-01-05] MEDS: OMEGA-3/DHA/EPA/FISH OIL 1,000 MG CAPSULE PO SCH (08:34)
[2023-01-05] MEDS: DOCUSATE SODIUM 250 MG CAPSULE PO SCH ×2 (08:34→16:38)
[2023-01-05] MEDS: IBUPROFEN 600 MG TABLET PO PRN (08:34)
[2023-01-05] MEDS: GABAPENTIN 300 MG CAPSULE PO SCH ×3 (08:34→16:38)
[2023-01-05] MEDS: MIRTAZAPINE 15 MG TABLET PO SCH (20:03)
[2023-01-05] MEDS: ATORVASTATIN CALCIUM 20 MG TABLET PO SCH (20:03)
[2023-01-05] MEDS: MELATONIN 5 MG TABLET PO SCH (20:03)
[2023-01-05] MEDS: GABAPENTIN 400 MG CAPSULE PO SCH (20:03)
[2023-01-05] MEDS: OLANZapine 10 MG RAPDIS TABLET PO SCH (20:04)
[2023-01-06] VITALS (9 sets, daily range): BP systolic 142; BP diastolic 77; PULSE 83; RESP 18; TEMP 97.6–98.2; O2SAT 97–98
[2023-01-06] MEDS: IBUPROFEN 600 MG TABLET PO PRN (08:08)
[2023-01-06] MEDS: GABAPENTIN 300 MG CAPSULE PO SCH ×3 (08:08→16:29)
[2023-01-06] MEDS: AmLODIPine BESYLATE 5 MG TABLET PO SCH (08:08)
[2023-01-06] MEDS: OMEGA-3/DHA/EPA/FISH OIL 1,000 MG CAPSULE PO SCH (08:08)
[2023-01-06] MEDS: FLUoxetine HCL 20 MG CAPSULE PO SCH (08:08)
[2023-01-06] MEDS: TRIHEXYPHENIDYL HCL 5 MG TABLET PO SCH ×3 (08:08→16:29)
[2023-01-06] MEDS: DOCUSATE SODIUM 250 MG CAPSULE PO SCH ×2 (08:08→16:29)
[2023-01-06] MEDS: LISINOPRIL 10 MG TABLET PO SCH (08:08)
[2023-01-06] MEDS: GABAPENTIN 400 MG CAPSULE PO SCH (20:08)
[2023-01-06] MEDS: OLANZapine 10 MG RAPDIS TABLET PO SCH (20:08)
[2023-01-06] MEDS: ATORVASTATIN CALCIUM 20 MG TABLET PO SCH (20:08)
[2023-01-06] MEDS: MELATONIN 5 MG TABLET PO SCH (20:08)
[2023-01-06] MEDS: MIRTAZAPINE 15 MG TABLET PO SCH (20:08)
[2023-01-06] MEDS: ACETAMINOPHEN 325 MG TABLET PO PRN (20:12)
[2023-01-07] VITALS (10 sets, daily range): BP systolic 142–145; BP diastolic 75–82; PULSE 74–84; RESP 18; TEMP 97.2–98.1; O2SAT 97–98
[2023-01-07] MEDS: GABAPENTIN 300 MG CAPSULE PO SCH ×4 (08:11→20:52)
[2023-01-07] MEDS: FLUoxetine HCL 20 MG CAPSULE PO SCH (08:12)
[2023-01-07] MEDS: DOCUSATE SODIUM 250 MG CAPSULE PO SCH ×2 (08:12→17:07)
[2023-01-07] MEDS: OMEGA-3/DHA/EPA/FISH OIL 1,000 MG CAPSULE PO SCH (08:12)
[2023-01-07] MEDS: LISINOPRIL 10 MG TABLET PO SCH (08:12)
[2023-01-07] MEDS: TRIHEXYPHENIDYL HCL 5 MG TABLET PO SCH ×3 (08:13→17:07)
[2023-01-07] MEDS: AmLODIPine BESYLATE 5 MG TABLET PO SCH (08:13)
[2023-01-07] MEDS: IBUPROFEN 600 MG TABLET PO PRN (09:39)
[2023-01-07] MEDS: OLANZapine 10 MG RAPDIS TABLET PO SCH (20:52)
[2023-01-07] MEDS: MELATONIN 5 MG TABLET PO SCH (20:52)
[2023-01-07] MEDS: ATORVASTATIN CALCIUM 20 MG TABLET PO SCH (20:52)
[2023-01-07] MEDS: GABAPENTIN 400 MG CAPSULE PO SCH (21:23)
[2023-01-07] MEDS: MIRTAZAPINE 15 MG TABLET PO SCH (21:34)
[2023-01-08] VITALS (11 sets, daily range): BP systolic 136–137; BP diastolic 81–83; PULSE 86–87; RESP 18; TEMP 97.4–98.2; O2SAT 96–98
[2023-01-08] MEDS: AmLODIPine BESYLATE 5 MG TABLET PO SCH (08:20)
[2023-01-08] MEDS: FLUoxetine HCL 20 MG CAPSULE PO SCH (08:20)
[2023-01-08] MEDS: DOCUSATE SODIUM 250 MG CAPSULE PO SCH ×2 (08:20→16:29)
[2023-01-08] MEDS: LISINOPRIL 10 MG TABLET PO SCH (08:20)
[2023-01-08] MEDS: OMEGA-3/DHA/EPA/FISH OIL 1,000 MG CAPSULE PO SCH (08:20)
[2023-01-08] MEDS: TRIHEXYPHENIDYL HCL 5 MG TABLET PO SCH ×3 (08:21→16:29)
[2023-01-08] MEDS: IBUPROFEN 600 MG TABLET PO PRN (08:39)
[2023-01-08] MEDS: GABAPENTIN 300 MG CAPSULE PO SCH ×2 (13:01→16:29)
[2023-01-08] MEDS: ACETAMINOPHEN 325 MG TABLET PO PRN (13:02)
[2023-01-08] MEDS: ATORVASTATIN CALCIUM 20 MG TABLET PO SCH (20:01)
[2023-01-08] MEDS: OLANZapine 10 MG RAPDIS TABLET PO SCH (20:01)
[2023-01-08] MEDS: GABAPENTIN 400 MG CAPSULE PO SCH (20:01)
[2023-01-08] MEDS: MIRTAZAPINE 15 MG TABLET PO SCH (20:01)
[2023-01-08] MEDS: MELATONIN 5 MG TABLET PO SCH (20:01)
[2023-01-09] VITALS (9 sets, daily range): BP systolic 130–135; BP diastolic 72–80; PULSE 73–89; RESP 17–18; TEMP 97–98.4; O2SAT 94–98
[2023-01-09] MEDS: TRIHEXYPHENIDYL HCL 5 MG TABLET PO SCH ×3 (08:18→16:13)
[2023-01-09] MEDS: LISINOPRIL 10 MG TABLET PO SCH (08:18)
[2023-01-09] MEDS: FLUoxetine HCL 20 MG CAPSULE PO SCH (08:18)
[2023-01-09] MEDS: GABAPENTIN 300 MG CAPSULE PO SCH ×3 (08:18→16:13)
[2023-01-09] MEDS: DOCUSATE SODIUM 250 MG CAPSULE PO SCH ×2 (08:18→16:13)
[2023-01-09] MEDS: AmLODIPine BESYLATE 5 MG TABLET PO SCH (08:18)
[2023-01-09] MEDS: OMEGA-3/DHA/EPA/FISH OIL 1,000 MG CAPSULE PO SCH (08:18)
[2023-01-09] MEDS: IBUPROFEN 600 MG TABLET PO PRN (08:19)
[2023-01-09] MEDS: GABAPENTIN 400 MG CAPSULE PO SCH (20:10)
[2023-01-09] MEDS: ATORVASTATIN CALCIUM 20 MG TABLET PO SCH (20:10)
[2023-01-09] MEDS: MELATONIN 5 MG TABLET PO SCH (20:10)
[2023-01-09] MEDS: OLANZapine 10 MG RAPDIS TABLET PO SCH (20:11)
[2023-01-09] MEDS: MIRTAZAPINE 15 MG TABLET PO SCH (20:11)
[2023-01-10 05:26] VITALS: BP 132/79; PULSE 82; RESP 18; TEMP 97.9; O2SAT 97
[2023-01-10 08:07] VITALS: BP 144/68; PULSE 88; RESP 18; TEMP 98; O2SAT 98
[2023-01-10] MEDS: OMEGA-3/DHA/EPA/FISH OIL 1,000 MG CAPSULE PO SCH (08:21)
[2023-01-10] MEDS: LISINOPRIL 10 MG TABLET PO SCH (08:21)
[2023-01-10] MEDS: DOCUSATE SODIUM 250 MG CAPSULE PO SCH ×2 (08:21→16:31)
[2023-01-10] MEDS: GABAPENTIN 300 MG CAPSULE PO SCH ×3 (08:23→16:31)
[2023-01-10] MEDS: AmLODIPine BESYLATE 5 MG TABLET PO SCH (08:23)
[2023-01-10] MEDS: IBUPROFEN 600 MG TABLET PO PRN (08:23)
[2023-01-10] MEDS: FLUoxetine HCL 20 MG CAPSULE PO SCH (08:23)
[2023-01-10] MEDS: TRIHEXYPHENIDYL HCL 5 MG TABLET PO SCH ×3 (08:23→16:31)
[2023-01-10 08:25] VITALS: RESP 18; O2SAT 97
[2023-01-10] MEDS: OLANZapine 10 MG RAPDIS TABLET PO SCH (20:05)
[2023-01-10] MEDS: ATORVASTATIN CALCIUM 20 MG TABLET PO SCH (20:05)
[2023-01-10] MEDS: GABAPENTIN 400 MG CAPSULE PO SCH (20:05)
[2023-01-10] MEDS: MELATONIN 5 MG TABLET PO SCH (20:06)
[2023-01-10] MEDS: MIRTAZAPINE 15 MG TABLET PO SCH (20:06)
[2023-01-10 20:20] VITALS: BP 115/62; PULSE 75; RESP 18; TEMP 97.7; O2SAT 97
[2023-01-11 08:21] VITALS: BP 134/71; PULSE 87; RESP 19; TEMP 98.1; O2SAT 97
[2023-01-11] MEDS: OMEGA-3/DHA/EPA/FISH OIL 1,000 MG CAPSULE PO SCH (08:29)
[2023-01-11] MEDS: AmLODIPine BESYLATE 5 MG TABLET PO SCH (08:29)
[2023-01-11] MEDS: LISINOPRIL 10 MG TABLET PO SCH (08:29)
[2023-01-11] MEDS: GABAPENTIN 300 MG CAPSULE PO SCH ×3 (08:29→16:36)
[2023-01-11] MEDS: TRIHEXYPHENIDYL HCL 5 MG TABLET PO SCH ×3 (08:29→16:36)
[2023-01-11] MEDS: DOCUSATE SODIUM 250 MG CAPSULE PO SCH ×2 (08:29→16:36)
[2023-01-11] MEDS: FLUoxetine HCL 20 MG CAPSULE PO SCH (08:30)
[2023-01-11 20:17] VITALS: BP 126/68; PULSE 80; RESP 17; TEMP 96.7; O2SAT 91
[2023-01-11] MEDS: MIRTAZAPINE 15 MG TABLET PO SCH (20:26)
[2023-01-11] MEDS: MELATONIN 5 MG TABLET PO SCH (20:26)
[2023-01-11] MEDS: OLANZapine 10 MG RAPDIS TABLET PO SCH (20:26)
[2023-01-11] MEDS: GABAPENTIN 400 MG CAPSULE PO SCH (20:26)
[2023-01-11] MEDS: ATORVASTATIN CALCIUM 20 MG TABLET PO SCH (20:26)
[2023-01-12] MEDS: GABAPENTIN 300 MG CAPSULE PO SCH ×3 (08:15→16:16)
[2023-01-12] MEDS: TRIHEXYPHENIDYL HCL 5 MG TABLET PO SCH ×3 (08:15→16:16)
[2023-01-12] MEDS: AmLODIPine BESYLATE 5 MG TABLET PO SCH (08:15)
[2023-01-12] MEDS: DOCUSATE SODIUM 250 MG CAPSULE PO SCH ×2 (08:15→16:16)
[2023-01-12] MEDS: LISINOPRIL 10 MG TABLET PO SCH (08:15)
[2023-01-12 08:16] VITALS: BP 129/74; PULSE 91; RESP 17; TEMP 98.4
[2023-01-12] MEDS: FLUoxetine HCL 20 MG CAPSULE PO SCH (08:16)
[2023-01-12] MEDS: OMEGA-3/DHA/EPA/FISH OIL 1,000 MG CAPSULE PO SCH (08:16)
[2023-01-12 16:07] VITALS: BP 128/79; PULSE 76; RESP 18; TEMP 97.9; O2SAT 94
[2023-01-12] MEDS: MIRTAZAPINE 15 MG TABLET PO SCH (20:34)
[2023-01-12] MEDS: OLANZapine 10 MG RAPDIS TABLET PO SCH (20:34)
[2023-01-12] MEDS: ATORVASTATIN CALCIUM 20 MG TABLET PO SCH (20:34)
[2023-01-12] MEDS: GABAPENTIN 400 MG CAPSULE PO SCH (20:34)
[2023-01-12] MEDS: MELATONIN 5 MG TABLET PO SCH (20:35)
[2023-01-13 06:49] VITALS: BP 139/82; PULSE 98; RESP 18; TEMP 98.4; O2SAT 98
[2023-01-13] MEDS: ACETAMINOPHEN 325 MG TABLET PO PRN (06:49)
[2023-01-13 07:49] VITALS: RESP 18
[2023-01-13 08:40] VITALS: BP 139/82; PULSE 98; RESP 18; TEMP 98.4; O2SAT 98
[2023-01-13] MEDS: LISINOPRIL 10 MG TABLET PO SCH (09:08)
[2023-01-13] MEDS: GABAPENTIN 300 MG CAPSULE PO SCH ×3 (09:08→17:26)
[2023-01-13] MEDS: AmLODIPine BESYLATE 5 MG TABLET PO SCH (09:08)
[2023-01-13] MEDS: TRIHEXYPHENIDYL HCL 5 MG TABLET PO SCH ×3 (09:08→17:26)
[2023-01-13] MEDS: DOCUSATE SODIUM 250 MG CAPSULE PO SCH ×2 (09:08→17:26)
[2023-01-13] MEDS: OMEGA-3/DHA/EPA/FISH OIL 1,000 MG CAPSULE PO SCH (09:09)
[2023-01-13] MEDS: FLUoxetine HCL 20 MG CAPSULE PO SCH (09:09)
[2023-01-13 16:07] VITALS: BP 146/70; PULSE 85; RESP 19; TEMP 98; O2SAT 96
[2023-01-13] MEDS: ATORVASTATIN CALCIUM 20 MG TABLET PO SCH (21:06)
[2023-01-13] MEDS: MELATONIN 5 MG TABLET PO SCH (21:07)
[2023-01-13] MEDS: MIRTAZAPINE 15 MG TABLET PO SCH (21:07)
[2023-01-13] MEDS: OLANZapine 10 MG RAPDIS TABLET PO SCH (21:09)
[2023-01-13] MEDS: GABAPENTIN 400 MG CAPSULE PO SCH (21:09)
[2023-01-14 00:56] VITALS: BP 135/74; PULSE 90; RESP 17; TEMP 97.9; O2SAT 97
[2023-01-14] MEDS: DOCUSATE SODIUM 250 MG CAPSULE PO SCH ×2 (08:06→16:19)
[2023-01-14] MEDS: GABAPENTIN 300 MG CAPSULE PO SCH ×3 (08:06→16:19)
[2023-01-14] MEDS: LISINOPRIL 10 MG TABLET PO SCH (08:06)
[2023-01-14] MEDS: TRIHEXYPHENIDYL HCL 5 MG TABLET PO SCH ×3 (08:06→16:19)
[2023-01-14] MEDS: AmLODIPine BESYLATE 5 MG TABLET PO SCH (08:06)
[2023-01-14] MEDS: FLUoxetine HCL 20 MG CAPSULE PO SCH (08:06)
[2023-01-14] MEDS: OMEGA-3/DHA/EPA/FISH OIL 1,000 MG CAPSULE PO SCH (08:06)
[2023-01-14 08:12] VITALS: BP 158/78; PULSE 75; RESP 19; TEMP 96.9; O2SAT 97
[2023-01-14 17:35] VITALS: BP 133/62; PULSE 85; RESP 19; TEMP 97.5; O2SAT 100
[2023-01-14] MEDS: ACETAMINOPHEN 325 MG TABLET PO PRN (17:50)
[2023-01-14] MEDS: ATORVASTATIN CALCIUM 20 MG TABLET PO SCH (20:05)
[2023-01-14] MEDS: MELATONIN 5 MG TABLET PO SCH (20:05)
[2023-01-14] MEDS: OLANZapine 10 MG RAPDIS TABLET PO SCH (20:06)
[2023-01-14] MEDS: MIRTAZAPINE 15 MG TABLET PO SCH (20:06)
[2023-01-14] MEDS: GABAPENTIN 400 MG CAPSULE PO SCH (20:06)
[2023-01-15] VITALS (7 sets, daily range): BP systolic 131–154; BP diastolic 80–89; PULSE 73–87; RESP 18–19; TEMP 97.6–98.1; O2SAT 95–98
[2023-01-15] MEDS: OMEGA-3/DHA/EPA/FISH OIL 1,000 MG CAPSULE PO SCH (08:16)
[2023-01-15] MEDS: DOCUSATE SODIUM 250 MG CAPSULE PO SCH ×2 (08:16→16:06)
[2023-01-15] MEDS: IBUPROFEN 600 MG TABLET PO PRN (08:16)
[2023-01-15] MEDS: FLUoxetine HCL 20 MG CAPSULE PO SCH (08:16)
[2023-01-15] MEDS: TRIHEXYPHENIDYL HCL 5 MG TABLET PO SCH ×3 (08:16→16:06)
[2023-01-15] MEDS: AmLODIPine BESYLATE 5 MG TABLET PO SCH (08:16)
[2023-01-15] MEDS: LISINOPRIL 10 MG TABLET PO SCH (08:16)
[2023-01-15] MEDS: GABAPENTIN 300 MG CAPSULE PO SCH ×3 (08:16→16:06)
[2023-01-15] MEDS: TraMADol HCL 50 MG TABLET PO PRN (12:52)
[2023-01-15] MEDS: GABAPENTIN 400 MG CAPSULE PO SCH (20:31)
[2023-01-15] MEDS: OLANZapine 10 MG RAPDIS TABLET PO SCH (20:31)
[2023-01-15] MEDS: ATORVASTATIN CALCIUM 20 MG TABLET PO SCH (20:32)
[2023-01-15] MEDS: MIRTAZAPINE 15 MG TABLET PO SCH (20:32)
[2023-01-15] MEDS: MELATONIN 5 MG TABLET PO SCH (20:32)
[2023-01-16 00:28] VITALS: BP 124/86; PULSE 78; RESP 18; TEMP 98; O2SAT 97
[2023-01-16] MEDS: TRIHEXYPHENIDYL HCL 5 MG TABLET PO SCH ×3 (08:05→16:08)
[2023-01-16] MEDS: DOCUSATE SODIUM 250 MG CAPSULE PO SCH ×2 (08:06→16:08)
[2023-01-16] MEDS: OMEGA-3/DHA/EPA/FISH OIL 1,000 MG CAPSULE PO SCH (08:06)
[2023-01-16] MEDS: LISINOPRIL 10 MG TABLET PO SCH (08:07)
[2023-01-16] MEDS: AmLODIPine BESYLATE 5 MG TABLET PO SCH (08:07)
[2023-01-16] MEDS: GABAPENTIN 300 MG CAPSULE PO SCH ×3 (08:07→16:08)
[2023-01-16] MEDS: FLUoxetine HCL 20 MG CAPSULE PO SCH (08:07)
[2023-01-16 08:15] VITALS: BP 152/73; PULSE 85; RESP 18; TEMP 98; O2SAT 98
[2023-01-16 13:22] VITALS: BP 139/90; PULSE 68; RESP 21; O2SAT 95
[2023-01-16] MEDS: TraMADol HCL 50 MG TABLET PO PRN (13:22)
[2023-01-16 14:22] VITALS: RESP 18
[2023-01-16 16:13] VITALS: BP 120/80; PULSE 76; RESP 18; TEMP 98.1; O2SAT 96
[2023-01-16] MEDS: ATORVASTATIN CALCIUM 20 MG TABLET PO SCH (20:09)
[2023-01-16] MEDS: MIRTAZAPINE 15 MG TABLET PO SCH (20:10)
[2023-01-16] MEDS: OLANZapine 10 MG RAPDIS TABLET PO SCH (20:10)
[2023-01-16] MEDS: GABAPENTIN 400 MG CAPSULE PO SCH (20:10)
[2023-01-16] MEDS: MELATONIN 5 MG TABLET PO SCH (20:10)
[2023-01-16 22:00] VITALS: BP 113/69; PULSE 90; RESP 19; TEMP 97.8; O2SAT 96
[2023-01-16] MEDS: ACETAMINOPHEN 325 MG TABLET PO PRN (22:00)
[2023-01-17 00:27] VITALS: BP 118/73; PULSE 85; RESP 18; TEMP 97.8; O2SAT 96
[2023-01-17] MEDS: FLUoxetine HCL 20 MG CAPSULE PO SCH (08:03)
[2023-01-17] MEDS: GABAPENTIN 300 MG CAPSULE PO SCH ×3 (08:04→17:33)
[2023-01-17] MEDS: AmLODIPine BESYLATE 5 MG TABLET PO SCH (08:04)
[2023-01-17] MEDS: OMEGA-3/DHA/EPA/FISH OIL 1,000 MG CAPSULE PO SCH (08:04)
[2023-01-17] MEDS: LISINOPRIL 10 MG TABLET PO SCH (08:04)
[2023-01-17] MEDS: DOCUSATE SODIUM 250 MG CAPSULE PO SCH ×2 (08:04→17:32)
[2023-01-17] MEDS: TRIHEXYPHENIDYL HCL 5 MG TABLET PO SCH ×3 (08:04→17:32)
[2023-01-17 08:21] VITALS: BP 133/80; PULSE 84; RESP 18; TEMP 98.2; O2SAT 97
[2023-01-17 09:26] VITALS: RESP 18
[2023-01-17] MEDS: IBUPROFEN 600 MG TABLET PO PRN (09:26)
[2023-01-17 10:26] VITALS: RESP 18
[2023-01-17 20:00] VITALS: BP 154/96; PULSE 87; RESP 17; TEMP 98
[2023-01-17] MEDS: MIRTAZAPINE 15 MG TABLET PO SCH (20:49)
[2023-01-17] MEDS: ATORVASTATIN CALCIUM 20 MG TABLET PO SCH (20:49)
[2023-01-17] MEDS: GABAPENTIN 400 MG CAPSULE PO SCH (20:49)
[2023-01-17] MEDS: OLANZapine 10 MG RAPDIS TABLET PO SCH (20:50)
[2023-01-17] MEDS: MELATONIN 5 MG TABLET PO SCH (20:50)
[2023-01-18] VITALS (7 sets, daily range): BP systolic 128; BP diastolic 67–94; PULSE 71–85; RESP 16–19; TEMP 97.2–97.9; O2SAT 96
[2023-01-18] MEDS: GABAPENTIN 300 MG CAPSULE PO SCH ×3 (08:16→16:43)
[2023-01-18] MEDS: OMEGA-3/DHA/EPA/FISH OIL 1,000 MG CAPSULE PO SCH (08:16)
[2023-01-18] MEDS: DOCUSATE SODIUM 250 MG CAPSULE PO SCH ×2 (08:16→16:43)
[2023-01-18] MEDS: LISINOPRIL 10 MG TABLET PO SCH (08:16)
[2023-01-18] MEDS: TRIHEXYPHENIDYL HCL 5 MG TABLET PO SCH ×3 (08:16→16:43)
[2023-01-18] MEDS: AmLODIPine BESYLATE 5 MG TABLET PO SCH (08:16)
[2023-01-18] MEDS: FLUoxetine HCL 20 MG CAPSULE PO SCH (08:16)
[2023-01-18] MEDS: IBUPROFEN 600 MG TABLET PO PRN (10:11)
[2023-01-18] MEDS: ACETAMINOPHEN 325 MG TABLET PO PRN (14:21)
[2023-01-18] MEDS: GABAPENTIN 400 MG CAPSULE PO SCH (20:28)
[2023-01-18] MEDS: ATORVASTATIN CALCIUM 20 MG TABLET PO SCH (20:28)
[2023-01-18] MEDS: MELATONIN 5 MG TABLET PO SCH (20:29)
[2023-01-18] MEDS: OLANZapine 10 MG RAPDIS TABLET PO SCH (20:29)
[2023-01-18] MEDS: MIRTAZAPINE 15 MG TABLET PO SCH (20:29)
[2023-01-19] VITALS (9 sets, daily range): BP systolic 128–142; BP diastolic 63–98; PULSE 76–90; RESP 16–18; TEMP 97.6–97.8; O2SAT 97–99
[2023-01-19] MEDS: LISINOPRIL 10 MG TABLET PO SCH (08:11)
[2023-01-19] MEDS: GABAPENTIN 300 MG CAPSULE PO SCH ×3 (08:11→16:42)
[2023-01-19] MEDS: DOCUSATE SODIUM 250 MG CAPSULE PO SCH ×2 (08:11→16:42)
[2023-01-19] MEDS: FLUoxetine HCL 20 MG CAPSULE PO SCH (08:11)
[2023-01-19] MEDS: AmLODIPine BESYLATE 5 MG TABLET PO SCH (08:11)
[2023-01-19] MEDS: TRIHEXYPHENIDYL HCL 5 MG TABLET PO SCH ×3 (08:11→16:42)
[2023-01-19] MEDS: OMEGA-3/DHA/EPA/FISH OIL 1,000 MG CAPSULE PO SCH (08:11)
[2023-01-19] MEDS: IBUPROFEN 600 MG TABLET PO PRN ×2 (08:19→16:50)
[2023-01-19] MEDS: TraMADol HCL 50 MG TABLET PO PRN (12:27)
[2023-01-19] MEDS: ATORVASTATIN CALCIUM 20 MG TABLET PO SCH (20:43)
[2023-01-19] MEDS: MELATONIN 5 MG TABLET PO SCH (20:43)
[2023-01-19] MEDS: MIRTAZAPINE 15 MG TABLET PO SCH (20:44)
[2023-01-19] MEDS: OLANZapine 10 MG RAPDIS TABLET PO SCH (20:44)
[2023-01-19] MEDS: GABAPENTIN 400 MG CAPSULE PO SCH (20:44)
[2023-01-20] VITALS (9 sets, daily range): BP systolic 124–140; BP diastolic 67–90; PULSE 66–85; RESP 16–18; TEMP 97.5–98.2; O2SAT 97–98
[2023-01-20] MEDS: LISINOPRIL 10 MG TABLET PO SCH (08:15)
[2023-01-20] MEDS: AmLODIPine BESYLATE 5 MG TABLET PO SCH (08:15)
[2023-01-20] MEDS: DOCUSATE SODIUM 250 MG CAPSULE PO SCH ×2 (08:15→16:21)
[2023-01-20] MEDS: FLUoxetine HCL 20 MG CAPSULE PO SCH (08:16)
[2023-01-20] MEDS: GABAPENTIN 300 MG CAPSULE PO SCH ×3 (08:16→16:21)
[2023-01-20] MEDS: TRIHEXYPHENIDYL HCL 5 MG TABLET PO SCH ×3 (08:16→16:21)
[2023-01-20] MEDS: OMEGA-3/DHA/EPA/FISH OIL 1,000 MG CAPSULE PO SCH (08:16)
[2023-01-20] MEDS: IBUPROFEN 600 MG TABLET PO PRN ×2 (08:29→18:07)
[2023-01-20] MEDS: TraMADol HCL 50 MG TABLET PO PRN (11:34)
[2023-01-20] MEDS: MELATONIN 5 MG TABLET PO SCH (20:05)
[2023-01-20] MEDS: ATORVASTATIN CALCIUM 20 MG TABLET PO SCH (20:05)
[2023-01-20] MEDS: MIRTAZAPINE 15 MG TABLET PO SCH (20:05)
[2023-01-20] MEDS: GABAPENTIN 400 MG CAPSULE PO SCH (20:05)
[2023-01-20] MEDS: OLANZapine 10 MG RAPDIS TABLET PO SCH (20:05)
[2023-01-21] VITALS (10 sets, daily range): BP systolic 123–134; BP diastolic 70–74; PULSE 79–90; RESP 16–18; TEMP 97.5–98; O2SAT 96
[2023-01-21] MEDS: FLUoxetine HCL 20 MG CAPSULE PO SCH (08:20)
[2023-01-21] MEDS: GABAPENTIN 300 MG CAPSULE PO SCH ×3 (08:20→16:42)
[2023-01-21] MEDS: DOCUSATE SODIUM 250 MG CAPSULE PO SCH ×2 (08:20→16:42)
[2023-01-21] MEDS: TRIHEXYPHENIDYL HCL 5 MG TABLET PO SCH ×3 (08:20→16:42)
[2023-01-21] MEDS: AmLODIPine BESYLATE 5 MG TABLET PO SCH (08:20)
[2023-01-21] MEDS: LISINOPRIL 10 MG TABLET PO SCH (08:20)
[2023-01-21] MEDS: OMEGA-3/DHA/EPA/FISH OIL 1,000 MG CAPSULE PO SCH (08:20)
[2023-01-21] MEDS: IBUPROFEN 600 MG TABLET PO PRN ×2 (08:31→16:30)
[2023-01-21] MEDS: TraMADol HCL 50 MG TABLET PO PRN (10:15)
[2023-01-21] MEDS: ACETAMINOPHEN 325 MG TABLET PO PRN (18:34)
[2023-01-21] MEDS: OLANZapine 10 MG RAPDIS TABLET PO SCH (20:33)
[2023-01-21] MEDS: ATORVASTATIN CALCIUM 20 MG TABLET PO SCH (20:33)
[2023-01-21] MEDS: MELATONIN 5 MG TABLET PO SCH (20:33)
[2023-01-21] MEDS: MIRTAZAPINE 15 MG TABLET PO SCH (20:33)
[2023-01-21] MEDS: GABAPENTIN 400 MG CAPSULE PO SCH (21:00)
[2023-01-22 06:28] VITALS: BP 124/72; PULSE 89; RESP 18; TEMP 76.6; O2SAT 97
[2023-01-22] MEDS: IBUPROFEN 600 MG TABLET PO PRN (06:37)
[2023-01-22 08:13] VITALS: BP 153/77; PULSE 88; RESP 18; TEMP 98.2; O2SAT 97
[2023-01-22] MEDS: OMEGA-3/DHA/EPA/FISH OIL 1,000 MG CAPSULE PO SCH (08:39)
[2023-01-22] MEDS: FLUoxetine HCL 20 MG CAPSULE PO SCH (08:39)
[2023-01-22] MEDS: AmLODIPine BESYLATE 5 MG TABLET PO SCH (08:39)
[2023-01-22] MEDS: LISINOPRIL 10 MG TABLET PO SCH (08:39)
[2023-01-22] MEDS: GABAPENTIN 300 MG CAPSULE PO SCH ×3 (08:39→16:32)
[2023-01-22] MEDS: DOCUSATE SODIUM 250 MG CAPSULE PO SCH ×2 (08:39→16:33)
[2023-01-22] MEDS: TRIHEXYPHENIDYL HCL 5 MG TABLET PO SCH ×3 (08:39→16:31)
[2023-01-22 09:36] VITALS: RESP 18
[2023-01-22] MEDS: ACETAMINOPHEN 325 MG TABLET PO PRN (09:36)
[2023-01-22 10:36] VITALS: RESP 18
[2023-01-22 20:16] VITALS: BP 145/78; PULSE 81; RESP 19; TEMP 98.2; O2SAT 94
[2023-01-22] MEDS: MIRTAZAPINE 15 MG TABLET PO SCH (21:05)
[2023-01-22] MEDS: GABAPENTIN 400 MG CAPSULE PO SCH (21:05)
[2023-01-22] MEDS: ATORVASTATIN CALCIUM 20 MG TABLET PO SCH (21:05)
[2023-01-22] MEDS: OLANZapine 10 MG RAPDIS TABLET PO SCH (21:05)
[2023-01-22] MEDS: MELATONIN 5 MG TABLET PO SCH (21:06)
[2023-01-23 09:07] VITALS: BP 143/86; PULSE 97; RESP 18; TEMP 98.3; O2SAT 97
[2023-01-23] MEDS: OMEGA-3/DHA/EPA/FISH OIL 1,000 MG CAPSULE PO SCH (09:12)
[2023-01-23] MEDS: FLUoxetine HCL 20 MG CAPSULE PO SCH (09:12)
[2023-01-23] MEDS: AmLODIPine BESYLATE 5 MG TABLET PO SCH (09:13)
[2023-01-23] MEDS: TRIHEXYPHENIDYL HCL 5 MG TABLET PO SCH ×3 (09:13→16:28)
[2023-01-23] MEDS: LISINOPRIL 10 MG TABLET PO SCH (09:13)
[2023-01-23] MEDS: GABAPENTIN 300 MG CAPSULE PO SCH ×3 (09:13→16:28)
[2023-01-23] MEDS: DOCUSATE SODIUM 250 MG CAPSULE PO SCH ×2 (09:13→16:28)
[2023-01-23 09:33] VITALS: RESP 19
[2023-01-23] MEDS: ACETAMINOPHEN 325 MG TABLET PO PRN ×2 (09:33→20:48)
[2023-01-23] MEDS: OLANZapine 10 MG RAPDIS TABLET PO SCH (20:37)
[2023-01-23] MEDS: MIRTAZAPINE 15 MG TABLET PO SCH (20:37)
[2023-01-23] MEDS: MELATONIN 5 MG TABLET PO SCH (20:37)
[2023-01-23] MEDS: GABAPENTIN 400 MG CAPSULE PO SCH (20:37)
[2023-01-23] MEDS: ATORVASTATIN CALCIUM 20 MG TABLET PO SCH (20:37)
[2023-01-23 20:46] VITALS: BP 117/69; PULSE 81; RESP 18; TEMP 98.9
[2023-01-23 21:48] VITALS: RESP 18
[2023-01-24] MEDS: ACETAMINOPHEN 325 MG TABLET PO PRN (07:01)
[2023-01-24 08:21] VITALS: BP 127/53; PULSE 75; RESP 18; TEMP 97.6; O2SAT 94
[2023-01-24] MEDS: TRIHEXYPHENIDYL HCL 5 MG TABLET PO SCH ×3 (08:34→16:30)
[2023-01-24] MEDS: DOCUSATE SODIUM 250 MG CAPSULE PO SCH ×2 (08:34→16:30)
[2023-01-24] MEDS: OMEGA-3/DHA/EPA/FISH OIL 1,000 MG CAPSULE PO SCH (08:35)
[2023-01-24] MEDS: GABAPENTIN 300 MG CAPSULE PO SCH ×3 (08:35→16:31)
[2023-01-24] MEDS: FLUoxetine HCL 20 MG CAPSULE PO SCH (08:35)
[2023-01-24 08:44] VITALS: BP 136/83; PULSE 83; RESP 18
[2023-01-24] MEDS: LISINOPRIL 10 MG TABLET PO SCH (08:44)
[2023-01-24] MEDS: AmLODIPine BESYLATE 5 MG TABLET PO SCH (08:44)
[2023-01-24] MEDS: TraMADol HCL 50 MG TABLET PO PRN (08:45)
[2023-01-24 09:44] VITALS: RESP 16
[2023-01-24 16:38] VITALS: RESP 17
[2023-01-24] MEDS: IBUPROFEN 600 MG TABLET PO PRN (16:38)
[2023-01-24 17:38] VITALS: RESP 16
[2023-01-24 20:10] VITALS: BP 128/71; PULSE 76; RESP 19; TEMP 98; O2SAT 98
[2023-01-24] MEDS: OLANZapine 10 MG RAPDIS TABLET PO SCH (20:30)
[2023-01-24] MEDS: ATORVASTATIN CALCIUM 20 MG TABLET PO SCH (20:30)
[2023-01-24] MEDS: MIRTAZAPINE 15 MG TABLET PO SCH (20:30)
[2023-01-24] MEDS: MELATONIN 5 MG TABLET PO SCH (20:31)
[2023-01-24] MEDS: GABAPENTIN 400 MG CAPSULE PO SCH (20:39)
[2023-01-25] VITALS (8 sets, daily range): BP systolic 128–137; BP diastolic 68–88; PULSE 72–79; RESP 16–17; TEMP 97.6–98; O2SAT 97–98
[2023-01-25] MEDS: GABAPENTIN 300 MG CAPSULE PO SCH ×3 (08:18→16:27)
[2023-01-25] MEDS: FLUoxetine HCL 20 MG CAPSULE PO SCH (08:18)
[2023-01-25] MEDS: DOCUSATE SODIUM 250 MG CAPSULE PO SCH ×2 (08:18→16:26)
[2023-01-25] MEDS: OMEGA-3/DHA/EPA/FISH OIL 1,000 MG CAPSULE PO SCH (08:18)
[2023-01-25] MEDS: TRIHEXYPHENIDYL HCL 5 MG TABLET PO SCH ×3 (08:18→16:27)
[2023-01-25] MEDS: LISINOPRIL 10 MG TABLET PO SCH (08:18)
[2023-01-25] MEDS: AmLODIPine BESYLATE 5 MG TABLET PO SCH (08:18)
[2023-01-25] MEDS: ACETAMINOPHEN 325 MG TABLET PO PRN (08:31)
[2023-01-25] MEDS: TraMADol HCL 50 MG TABLET PO PRN (10:34)
[2023-01-25] MEDS: IBUPROFEN 600 MG TABLET PO PRN (17:43)
[2023-01-25] MEDS: OLANZapine 10 MG RAPDIS TABLET PO SCH (20:15)
[2023-01-25] MEDS: MELATONIN 5 MG TABLET PO SCH (20:15)
[2023-01-25] MEDS: GABAPENTIN 400 MG CAPSULE PO SCH (20:15)
[2023-01-25] MEDS: MIRTAZAPINE 15 MG TABLET PO SCH (20:15)
[2023-01-25] MEDS: ATORVASTATIN CALCIUM 20 MG TABLET PO SCH (20:15)
[2023-01-26 08:34] VITALS: BP 146/87; PULSE 96; RESP 18; TEMP 97.9; O2SAT 94
[2023-01-26] MEDS: TRIHEXYPHENIDYL HCL 5 MG TABLET PO SCH ×3 (08:40→16:19)
[2023-01-26] MEDS: AmLODIPine BESYLATE 5 MG TABLET PO SCH (08:41)
[2023-01-26] MEDS: DOCUSATE SODIUM 250 MG CAPSULE PO SCH ×2 (08:41→16:19)
[2023-01-26] MEDS: LISINOPRIL 10 MG TABLET PO SCH (08:41)
[2023-01-26] MEDS: FLUoxetine HCL 20 MG CAPSULE PO SCH (08:41)
[2023-01-26] MEDS: OMEGA-3/DHA/EPA/FISH OIL 1,000 MG CAPSULE PO SCH (08:41)
[2023-01-26] MEDS: GABAPENTIN 300 MG CAPSULE PO SCH ×3 (08:41→16:19)
[2023-01-26 08:50] VITALS: RESP 18; O2SAT 95
[2023-01-26] MEDS: IBUPROFEN 600 MG TABLET PO PRN (08:50)
[2023-01-26 09:50] VITALS: RESP 17; O2SAT 95
[2023-01-26] MEDS: ATORVASTATIN CALCIUM 20 MG TABLET PO SCH (20:00)
[2023-01-26] MEDS: MELATONIN 5 MG TABLET PO SCH (20:01)
[2023-01-26] MEDS: GABAPENTIN 400 MG CAPSULE PO SCH (20:01)
[2023-01-26] MEDS: MIRTAZAPINE 15 MG TABLET PO SCH (20:01)
[2023-01-26] MEDS: OLANZapine 10 MG RAPDIS TABLET PO SCH (20:01)
[2023-01-26 20:04] VITALS: BP 139/74; PULSE 77; RESP 18; TEMP 98; O2SAT 96
[2023-01-27 08:08] VITALS: BP 140/79; PULSE 96; RESP 18; TEMP 98.1
[2023-01-27] MEDS: TRIHEXYPHENIDYL HCL 5 MG TABLET PO SCH ×3 (08:31→16:29)
[2023-01-27] MEDS: OMEGA-3/DHA/EPA/FISH OIL 1,000 MG CAPSULE PO SCH (08:31)
[2023-01-27] MEDS: DOCUSATE SODIUM 250 MG CAPSULE PO SCH ×2 (08:31→16:29)
[2023-01-27] MEDS: GABAPENTIN 300 MG CAPSULE PO SCH ×3 (08:32→16:29)
[2023-01-27] MEDS: AmLODIPine BESYLATE 5 MG TABLET PO SCH (08:32)
[2023-01-27] MEDS: FLUoxetine HCL 20 MG CAPSULE PO SCH (08:32)
[2023-01-27] MEDS: LISINOPRIL 10 MG TABLET PO SCH (08:32)
[2023-01-27 09:38] VITALS: RESP 19
[2023-01-27] MEDS: TraMADol HCL 50 MG TABLET PO PRN (09:38)
[2023-01-27 10:38] VITALS: RESP 18
[2023-01-27 20:03] VITALS: RESP 19; TEMP 97.8
[2023-01-27] MEDS: GABAPENTIN 400 MG CAPSULE PO SCH (20:19)
[2023-01-27] MEDS: MIRTAZAPINE 15 MG TABLET PO SCH (20:19)
[2023-01-27] MEDS: ATORVASTATIN CALCIUM 20 MG TABLET PO SCH (20:20)
[2023-01-27] MEDS: MELATONIN 5 MG TABLET PO SCH (20:20)
[2023-01-27] MEDS: OLANZapine 10 MG RAPDIS TABLET PO SCH (20:20)
[2023-01-28 08:27] VITALS: BP 135/67; PULSE 83; RESP 17; TEMP 97.7; O2SAT 97
[2023-01-28] MEDS: DOCUSATE SODIUM 250 MG CAPSULE PO SCH ×2 (08:31→16:10)
[2023-01-28] MEDS: TRIHEXYPHENIDYL HCL 5 MG TABLET PO SCH ×3 (08:31→16:10)
[2023-01-28] MEDS: OMEGA-3/DHA/EPA/FISH OIL 1,000 MG CAPSULE PO SCH (08:31)
[2023-01-28] MEDS: FLUoxetine HCL 20 MG CAPSULE PO SCH (08:32)
[2023-01-28] MEDS: GABAPENTIN 300 MG CAPSULE PO SCH ×3 (08:32→16:11)
[2023-01-28] MEDS: AmLODIPine BESYLATE 5 MG TABLET PO SCH (08:32)
[2023-01-28] MEDS: LISINOPRIL 10 MG TABLET PO SCH (08:32)
[2023-01-28 09:06] VITALS: RESP 18
[2023-01-28] MEDS: TraMADol HCL 50 MG TABLET PO PRN (09:06)
[2023-01-28 10:06] VITALS: RESP 17
[2023-01-28 15:00] VITALS: RESP 18
[2023-01-28] MEDS: IBUPROFEN 600 MG TABLET PO PRN (15:00)
[2023-01-28 16:00] VITALS: RESP 17
[2023-01-28] MEDS: GABAPENTIN 400 MG CAPSULE PO SCH (20:20)
[2023-01-28] MEDS: ATORVASTATIN CALCIUM 20 MG TABLET PO SCH (20:20)
[2023-01-28] MEDS: MIRTAZAPINE 15 MG TABLET PO SCH (20:20)
[2023-01-28] MEDS: MELATONIN 5 MG TABLET PO SCH (20:21)
[2023-01-28] MEDS: OLANZapine 10 MG RAPDIS TABLET PO SCH (20:21)
[2023-01-28 22:15] VITALS: BP 130/59; PULSE 72; RESP 18; TEMP 97.6; O2SAT 96
[2023-01-29 08:06] VITALS: BP 142/67; PULSE 95; RESP 19; TEMP 98.1; O2SAT 97
[2023-01-29] MEDS: DOCUSATE SODIUM 250 MG CAPSULE PO SCH ×2 (08:25→16:36)
[2023-01-29] MEDS: TRIHEXYPHENIDYL HCL 5 MG TABLET PO SCH ×3 (08:25→16:35)
[2023-01-29] MEDS: LISINOPRIL 10 MG TABLET PO SCH (08:26)
[2023-01-29] MEDS: AmLODIPine BESYLATE 5 MG TABLET PO SCH (08:26)
[2023-01-29] MEDS: GABAPENTIN 300 MG CAPSULE PO SCH ×3 (08:26→16:36)
[2023-01-29] MEDS: OMEGA-3/DHA/EPA/FISH OIL 1,000 MG CAPSULE PO SCH (08:26)
[2023-01-29] MEDS: FLUoxetine HCL 20 MG CAPSULE PO SCH (08:26)
[2023-01-29 10:44] VITALS: RESP 19; O2SAT 97
[2023-01-29] MEDS: TraMADol HCL 50 MG TABLET PO PRN (10:44)
[2023-01-29 11:44] VITALS: RESP 18
[2023-01-29 20:25] VITALS: BP 138/71; PULSE 83; RESP 18; TEMP 97.9; O2SAT 97
[2023-01-29] MEDS: MIRTAZAPINE 15 MG TABLET PO SCH (20:35)
[2023-01-29] MEDS: MELATONIN 5 MG TABLET PO SCH (20:35)
[2023-01-29] MEDS: ATORVASTATIN CALCIUM 20 MG TABLET PO SCH (20:35)
[2023-01-29] MEDS: GABAPENTIN 400 MG CAPSULE PO SCH (20:36)
[2023-01-29] MEDS: OLANZapine 10 MG RAPDIS TABLET PO SCH (20:36)
[2023-01-30 08:06] VITALS: BP 141/62; PULSE 82; RESP 18; TEMP 98.2; O2SAT 98
[2023-01-30] MEDS: OMEGA-3/DHA/EPA/FISH OIL 1,000 MG CAPSULE PO SCH (09:19)
[2023-01-30] MEDS: FLUoxetine HCL 20 MG CAPSULE PO SCH (09:20)
[2023-01-30] MEDS: GABAPENTIN 300 MG CAPSULE PO SCH ×3 (09:20→18:04)
[2023-01-30] MEDS: TRIHEXYPHENIDYL HCL 5 MG TABLET PO SCH ×3 (09:20→18:04)
[2023-01-30] MEDS: AmLODIPine BESYLATE 5 MG TABLET PO SCH (09:20)
[2023-01-30] MEDS: DOCUSATE SODIUM 250 MG CAPSULE PO SCH ×2 (09:20→18:04)
[2023-01-30] MEDS: LISINOPRIL 10 MG TABLET PO SCH (09:20)
[2023-01-30] MEDS: IBUPROFEN 600 MG TABLET PO PRN (18:51)
[2023-01-30] MEDS: MIRTAZAPINE 15 MG TABLET PO SCH (20:08)
[2023-01-30] MEDS: GABAPENTIN 400 MG CAPSULE PO SCH (20:09)
[2023-01-30] MEDS: ATORVASTATIN CALCIUM 20 MG TABLET PO SCH (20:09)
[2023-01-30] MEDS: OLANZapine 10 MG RAPDIS TABLET PO SCH (20:09)
[2023-01-30] MEDS: MELATONIN 5 MG TABLET PO SCH (20:10)
[2023-01-30 20:35] VITALS: BP 117/65; PULSE 85; RESP 18; TEMP 98.2; O2SAT 95
[2023-01-31 08:26] VITALS: BP 114/66; PULSE 80; RESP 19; TEMP 97.1
[2023-01-31] MEDS: TRIHEXYPHENIDYL HCL 5 MG TABLET PO SCH ×3 (08:37→16:34)
[2023-01-31] MEDS: GABAPENTIN 300 MG CAPSULE PO SCH ×3 (08:38→16:35)
[2023-01-31] MEDS: LISINOPRIL 10 MG TABLET PO SCH (08:38)
[2023-01-31] MEDS: OMEGA-3/DHA/EPA/FISH OIL 1,000 MG CAPSULE PO SCH (08:38)
[2023-01-31] MEDS: DOCUSATE SODIUM 250 MG CAPSULE PO SCH ×2 (08:38→16:34)
[2023-01-31] MEDS: AmLODIPine BESYLATE 5 MG TABLET PO SCH (08:38)
[2023-01-31] MEDS: FLUoxetine HCL 20 MG CAPSULE PO SCH (08:38)
[2023-01-31 08:45] VITALS: RESP 19
[2023-01-31] MEDS: TraMADol HCL 50 MG TABLET PO PRN (08:45)
[2023-01-31 09:45] VITALS: RESP 18
[2023-01-31] MEDS: ATORVASTATIN CALCIUM 20 MG TABLET PO SCH (20:10)
[2023-01-31] MEDS: OLANZapine 10 MG RAPDIS TABLET PO SCH (20:12)
[2023-01-31] MEDS: MIRTAZAPINE 15 MG TABLET PO SCH (20:12)
[2023-01-31] MEDS: MELATONIN 5 MG TABLET PO SCH (20:12)
[2023-01-31] MEDS: GABAPENTIN 400 MG CAPSULE PO SCH (20:12)
[2023-01-31 20:27] VITALS: BP 125/78; PULSE 86; RESP 18; TEMP 97.9; O2SAT 98
[2023-02-01] MEDS: OMEGA-3/DHA/EPA/FISH OIL 1,000 MG CAPSULE PO SCH (09:42)
[2023-02-01] MEDS: DOCUSATE SODIUM 250 MG CAPSULE PO SCH ×2 (09:42→16:59)
[2023-02-01] MEDS: FLUoxetine HCL 20 MG CAPSULE PO SCH (09:42)
[2023-02-01] MEDS: LISINOPRIL 10 MG TABLET PO SCH (09:42)
[2023-02-01] MEDS: TRIHEXYPHENIDYL HCL 5 MG TABLET PO SCH ×3 (09:42→16:58)
[2023-02-01] MEDS: GABAPENTIN 300 MG CAPSULE PO SCH ×3 (09:42→16:58)
[2023-02-01] MEDS: AmLODIPine BESYLATE 5 MG TABLET PO SCH (09:42)
[2023-02-01 09:43] VITALS: BP 160/99; PULSE 86; RESP 18; TEMP 98.2; O2SAT 95
[2023-02-01 10:06] VITALS: RESP 18
[2023-02-01] MEDS: IBUPROFEN 600 MG TABLET PO PRN (10:06)
[2023-02-01 11:06] VITALS: RESP 18
[2023-02-01] MEDS: ATORVASTATIN CALCIUM 20 MG TABLET PO SCH (20:11)
[2023-02-01] MEDS: MELATONIN 5 MG TABLET PO SCH (20:11)
[2023-02-01] MEDS: OLANZapine 10 MG RAPDIS TABLET PO SCH (20:17)
[2023-02-01] MEDS: MIRTAZAPINE 15 MG TABLET PO SCH (20:17)
[2023-02-01] MEDS: GABAPENTIN 400 MG CAPSULE PO SCH (20:17)
[2023-02-01 20:26] VITALS: RESP 19
[2023-02-02] VITALS (7 sets, daily range): BP systolic 143; BP diastolic 92; PULSE 72; RESP 17–18; TEMP 97.7; O2SAT 98
[2023-02-02] MEDS: FLUoxetine HCL 20 MG CAPSULE PO SCH (08:24)
[2023-02-02] MEDS: TRIHEXYPHENIDYL HCL 5 MG TABLET PO SCH ×2 (08:24→16:52)
[2023-02-02] MEDS: OMEGA-3/DHA/EPA/FISH OIL 1,000 MG CAPSULE PO SCH (08:24)
[2023-02-02] MEDS: GABAPENTIN 300 MG CAPSULE PO SCH ×3 (08:24→16:52)
[2023-02-02] MEDS: DOCUSATE SODIUM 250 MG CAPSULE PO SCH ×2 (08:24→16:52)
[2023-02-02] MEDS: AmLODIPine BESYLATE 5 MG TABLET PO SCH (08:25)
[2023-02-02] MEDS: IBUPROFEN 600 MG TABLET PO PRN ×2 (08:25→16:56)
[2023-02-02] MEDS: LISINOPRIL 10 MG TABLET PO SCH (08:25)
[2023-02-02] MEDS: MIRTAZAPINE 15 MG TABLET PO SCH (20:19)
[2023-02-02] MEDS: ATORVASTATIN CALCIUM 20 MG TABLET PO SCH (20:19)
[2023-02-02] MEDS: GABAPENTIN 400 MG CAPSULE PO SCH (20:19)
[2023-02-02] MEDS: MELATONIN 5 MG TABLET PO SCH (20:19)
[2023-02-02] MEDS: OLANZapine 10 MG RAPDIS TABLET PO SCH (20:19)
[2023-02-03 08:07] VITALS: BP 147/68; PULSE 90; RESP 18; TEMP 97.7; O2SAT 97
[2023-02-03] MEDS: GABAPENTIN 300 MG CAPSULE PO SCH ×3 (08:08→16:10)
[2023-02-03] MEDS: DOCUSATE SODIUM 250 MG CAPSULE PO SCH ×2 (08:08→16:10)
[2023-02-03] MEDS: LISINOPRIL 10 MG TABLET PO SCH (08:08)
[2023-02-03] MEDS: OMEGA-3/DHA/EPA/FISH OIL 1,000 MG CAPSULE PO SCH (08:08)
[2023-02-03] MEDS: FLUoxetine HCL 20 MG CAPSULE PO SCH (08:08)
[2023-02-03] MEDS: AmLODIPine BESYLATE 5 MG TABLET PO SCH (08:08)
[2023-02-03] MEDS: TRIHEXYPHENIDYL HCL 5 MG TABLET PO SCH ×2 (08:08→16:11)
[2023-02-03 08:09] VITALS: RESP 18; O2SAT 98
[2023-02-03] MEDS: IBUPROFEN 600 MG TABLET PO PRN (08:09)
[2023-02-03 09:09] VITALS: RESP 18
[2023-02-03 12:53] VITALS: RESP 19; O2SAT 97
[2023-02-03] MEDS: TraMADol HCL 50 MG TABLET PO PRN (12:53)
[2023-02-03 13:53] VITALS: RESP 18; O2SAT 97
[2023-02-03] MEDS: MELATONIN 5 MG TABLET PO SCH (20:14)
[2023-02-03] MEDS: GABAPENTIN 400 MG CAPSULE PO SCH (20:14)
[2023-02-03] MEDS: OLANZapine 10 MG RAPDIS TABLET PO SCH (20:14)
[2023-02-03] MEDS: ATORVASTATIN CALCIUM 20 MG TABLET PO SCH (20:14)
[2023-02-03] MEDS: MIRTAZAPINE 15 MG TABLET PO SCH (20:14)
[2023-02-03 22:04] VITALS: BP 143/89; PULSE 80; RESP 18; TEMP 98; O2SAT 98
[2023-02-04] MEDS: TRIHEXYPHENIDYL HCL 5 MG TABLET PO SCH ×2 (08:47→17:04)
[2023-02-04] MEDS: OMEGA-3/DHA/EPA/FISH OIL 1,000 MG CAPSULE PO SCH (08:48)
[2023-02-04] MEDS: LISINOPRIL 10 MG TABLET PO SCH (08:48)
[2023-02-04] MEDS: DOCUSATE SODIUM 250 MG CAPSULE PO SCH ×2 (08:48→17:04)
[2023-02-04] MEDS: GABAPENTIN 300 MG CAPSULE PO SCH ×3 (08:48→17:04)
[2023-02-04] MEDS: FLUoxetine HCL 20 MG CAPSULE PO SCH (08:49)
[2023-02-04] MEDS: AmLODIPine BESYLATE 5 MG TABLET PO SCH (08:49)
[2023-02-04 08:50] VITALS: BP 125/71; PULSE 86; RESP 16; TEMP 97.9; O2SAT 97
[2023-02-04] MEDS: IBUPROFEN 600 MG TABLET PO PRN (10:20)
[2023-02-04] MEDS: OLANZapine 10 MG RAPDIS TABLET PO SCH (20:46)
[2023-02-04] MEDS: MIRTAZAPINE 15 MG TABLET PO SCH (20:46)
[2023-02-04] MEDS: ATORVASTATIN CALCIUM 20 MG TABLET PO SCH (20:46)
[2023-02-04] MEDS: MELATONIN 5 MG TABLET PO SCH (20:47)
[2023-02-04] MEDS: GABAPENTIN 400 MG CAPSULE PO SCH (20:52)
[2023-02-04 20:55] VITALS: BP 124/72; PULSE 81; RESP 18; TEMP 98.1; O2SAT 98
[2023-02-05] MEDS: GABAPENTIN 300 MG CAPSULE PO SCH ×3 (08:04→16:35)
[2023-02-05] MEDS: AmLODIPine BESYLATE 5 MG TABLET PO SCH (08:04)
[2023-02-05] MEDS: DOCUSATE SODIUM 250 MG CAPSULE PO SCH ×2 (08:04→16:35)
[2023-02-05] MEDS: TRIHEXYPHENIDYL HCL 5 MG TABLET PO SCH ×2 (08:04→16:35)
[2023-02-05] MEDS: FLUoxetine HCL 20 MG CAPSULE PO SCH (08:04)
[2023-02-05] MEDS: LISINOPRIL 10 MG TABLET PO SCH (08:04)
[2023-02-05 08:05] VITALS: RESP 18; O2SAT 97
[2023-02-05] MEDS: TraMADol HCL 50 MG TABLET PO PRN (08:05)
[2023-02-05] MEDS: OMEGA-3/DHA/EPA/FISH OIL 1,000 MG CAPSULE PO SCH (08:05)
[2023-02-05 08:29] VITALS: BP 137/81; PULSE 84; RESP 18; TEMP 97.4
[2023-02-05 09:05] VITALS: RESP 18; O2SAT 98
[2023-02-05] MEDS: MELATONIN 5 MG TABLET PO SCH (20:34)
[2023-02-05] MEDS: MIRTAZAPINE 15 MG TABLET PO SCH (20:34)
[2023-02-05] MEDS: ATORVASTATIN CALCIUM 20 MG TABLET PO SCH (20:34)
[2023-02-05] MEDS: GABAPENTIN 400 MG CAPSULE PO SCH (20:34)
[2023-02-05] MEDS: OLANZapine 10 MG RAPDIS TABLET PO SCH (20:34)
[2023-02-05 20:52] VITALS: BP 132/85; PULSE 85; RESP 17; TEMP 97.6; O2SAT 97
[2023-02-06 08:32] VITALS: BP 130/75; PULSE 86; RESP 18; TEMP 97.9; O2SAT 95
[2023-02-06] MEDS: TRIHEXYPHENIDYL HCL 5 MG TABLET PO SCH ×2 (08:46→16:46)
[2023-02-06] MEDS: FLUoxetine HCL 20 MG CAPSULE PO SCH (08:46)
[2023-02-06] MEDS: DOCUSATE SODIUM 250 MG CAPSULE PO SCH ×2 (08:47→16:46)
[2023-02-06] MEDS: LISINOPRIL 10 MG TABLET PO SCH (08:47)
[2023-02-06] MEDS: OMEGA-3/DHA/EPA/FISH OIL 1,000 MG CAPSULE PO SCH (08:47)
[2023-02-06] MEDS: AmLODIPine BESYLATE 5 MG TABLET PO SCH (08:47)
[2023-02-06] MEDS: GABAPENTIN 300 MG CAPSULE PO SCH ×3 (08:47→16:46)
[2023-02-06 20:10] VITALS: BP 142/87; PULSE 83; RESP 18; TEMP 97.7; O2SAT 98
[2023-02-06] MEDS: MIRTAZAPINE 15 MG TABLET PO SCH (20:29)
[2023-02-06] MEDS: ATORVASTATIN CALCIUM 20 MG TABLET PO SCH (20:29)
[2023-02-06] MEDS: GABAPENTIN 400 MG CAPSULE PO SCH (20:29)
[2023-02-06] MEDS: OLANZapine 10 MG RAPDIS TABLET PO SCH (20:29)
[2023-02-06] MEDS: MELATONIN 5 MG TABLET PO SCH (20:30)
[2023-02-07 08:05] VITALS: BP 122/62; PULSE 91; RESP 18; TEMP 98; O2SAT 96
[2023-02-07] MEDS: DOCUSATE SODIUM 250 MG CAPSULE PO SCH ×2 (09:00→17:23)
[2023-02-07] MEDS: AmLODIPine BESYLATE 5 MG TABLET PO SCH (09:00)
[2023-02-07] MEDS: FLUoxetine HCL 20 MG CAPSULE PO SCH (09:00)
[2023-02-07] MEDS: LISINOPRIL 10 MG TABLET PO SCH (09:00)
[2023-02-07] MEDS: GABAPENTIN 300 MG CAPSULE PO SCH ×3 (09:00→17:23)
[2023-02-07] MEDS: TRIHEXYPHENIDYL HCL 5 MG TABLET PO SCH ×2 (09:00→17:23)
[2023-02-07] MEDS: OMEGA-3/DHA/EPA/FISH OIL 1,000 MG CAPSULE PO SCH (09:00)
[2023-02-07 10:19] VITALS: RESP 18; O2SAT 96
[2023-02-07] MEDS: IBUPROFEN 600 MG TABLET PO PRN (10:19)
[2023-02-07 20:16] VITALS: BP 131/79; PULSE 98; RESP 18; TEMP 98.3; O2SAT 97
[2023-02-07] MEDS: ATORVASTATIN CALCIUM 20 MG TABLET PO SCH (21:32)
[2023-02-07] MEDS: GABAPENTIN 400 MG CAPSULE PO SCH (21:33)
[2023-02-07] MEDS: OLANZapine 10 MG RAPDIS TABLET PO SCH (21:33)
[2023-02-07] MEDS: MIRTAZAPINE 15 MG TABLET PO SCH (21:34)
[2023-02-07] MEDS: MELATONIN 5 MG TABLET PO SCH (21:36)
[2023-02-08 08:13] VITALS: BP 136/89; PULSE 83; RESP 19; TEMP 98; O2SAT 96
[2023-02-08] MEDS: TRIHEXYPHENIDYL HCL 5 MG TABLET PO SCH ×2 (08:19→16:18)
[2023-02-08] MEDS: OMEGA-3/DHA/EPA/FISH OIL 1,000 MG CAPSULE PO SCH (08:19)
[2023-02-08] MEDS: AmLODIPine BESYLATE 5 MG TABLET PO SCH (08:19)
[2023-02-08] MEDS: LISINOPRIL 10 MG TABLET PO SCH (08:19)
[2023-02-08] MEDS: DOCUSATE SODIUM 250 MG CAPSULE PO SCH ×2 (08:19→16:18)
[2023-02-08] MEDS: GABAPENTIN 300 MG CAPSULE PO SCH ×3 (08:19→16:18)
[2023-02-08] MEDS: FLUoxetine HCL 20 MG CAPSULE PO SCH (08:19)
[2023-02-08 11:32] VITALS: RESP 17
[2023-02-08] MEDS: IBUPROFEN 600 MG TABLET PO PRN (11:32)
[2023-02-08 12:32] VITALS: RESP 16
[2023-02-08 20:03] VITALS: RESP 18
[2023-02-08] MEDS: ATORVASTATIN CALCIUM 20 MG TABLET PO SCH (20:08)
[2023-02-08] MEDS: MIRTAZAPINE 15 MG TABLET PO SCH (20:08)
[2023-02-08] MEDS: GABAPENTIN 400 MG CAPSULE PO SCH (20:08)
[2023-02-08] MEDS: MELATONIN 5 MG TABLET PO SCH (20:08)
[2023-02-08] MEDS: OLANZapine 10 MG RAPDIS TABLET PO SCH (20:08)
[2023-02-09 08:00] VITALS: BP 125/72; PULSE 86; RESP 16; TEMP 97.6; O2SAT 95
[2023-02-09] MEDS: GABAPENTIN 300 MG CAPSULE PO SCH ×3 (08:10→16:24)
[2023-02-09] MEDS: DOCUSATE SODIUM 250 MG CAPSULE PO SCH ×2 (08:10→16:24)
[2023-02-09] MEDS: TRIHEXYPHENIDYL HCL 5 MG TABLET PO SCH ×2 (08:10→16:24)
[2023-02-09] MEDS: LISINOPRIL 10 MG TABLET PO SCH (08:10)
[2023-02-09] MEDS: FLUoxetine HCL 20 MG CAPSULE PO SCH (08:11)
[2023-02-09] MEDS: AmLODIPine BESYLATE 5 MG TABLET PO SCH (08:11)
[2023-02-09] MEDS: OMEGA-3/DHA/EPA/FISH OIL 1,000 MG CAPSULE PO SCH (08:11)
[2023-02-09 08:20] VITALS: RESP 17
[2023-02-09] MEDS: ACETAMINOPHEN 325 MG TABLET PO PRN (08:20)
[2023-02-09 09:20] VITALS: RESP 16
[2023-02-09 12:20] VITALS: RESP 17
[2023-02-09] MEDS: IBUPROFEN 600 MG TABLET PO PRN (12:20)
[2023-02-09 13:20] VITALS: RESP 16
[2023-02-09 20:02] VITALS: BP 124/65; PULSE 83; RESP 18; TEMP 97.8; O2SAT 98
[2023-02-09] MEDS: OLANZapine 10 MG RAPDIS TABLET PO SCH (20:08)
[2023-02-09] MEDS: GABAPENTIN 400 MG CAPSULE PO SCH (20:08)
[2023-02-09] MEDS: MIRTAZAPINE 15 MG TABLET PO SCH (20:09)
[2023-02-09] MEDS: ATORVASTATIN CALCIUM 20 MG TABLET PO SCH (20:09)
[2023-02-09] MEDS: MELATONIN 5 MG TABLET PO SCH (20:09)
[2023-02-10 08:17] VITALS: BP 140/87; PULSE 81; RESP 18; TEMP 97.8
[2023-02-10] MEDS: DOCUSATE SODIUM 250 MG CAPSULE PO SCH ×2 (08:21→16:42)
[2023-02-10] MEDS: LISINOPRIL 10 MG TABLET PO SCH (08:21)
[2023-02-10] MEDS: GABAPENTIN 300 MG CAPSULE PO SCH ×3 (08:21→16:42)
[2023-02-10] MEDS: TRIHEXYPHENIDYL HCL 5 MG TABLET PO SCH ×2 (08:21→16:42)
[2023-02-10] MEDS: OMEGA-3/DHA/EPA/FISH OIL 1,000 MG CAPSULE PO SCH (08:21)
[2023-02-10] MEDS: FLUoxetine HCL 20 MG CAPSULE PO SCH (08:21)
[2023-02-10] MEDS: AmLODIPine BESYLATE 5 MG TABLET PO SCH (08:22)
[2023-02-10 11:07] VITALS: RESP 18
[2023-02-10] MEDS: IBUPROFEN 600 MG TABLET PO PRN (11:07)
[2023-02-10 12:07] VITALS: RESP 17
[2023-02-10 20:06] VITALS: BP 148/87; PULSE 71; RESP 18; TEMP 97.9; O2SAT 96
[2023-02-10] MEDS: ATORVASTATIN CALCIUM 20 MG TABLET PO SCH (20:17)
[2023-02-10] MEDS: OLANZapine 10 MG RAPDIS TABLET PO SCH (20:17)
[2023-02-10] MEDS: MELATONIN 5 MG TABLET PO SCH (20:17)
[2023-02-10] MEDS: GABAPENTIN 400 MG CAPSULE PO SCH (20:17)
[2023-02-10] MEDS: MIRTAZAPINE 15 MG TABLET PO SCH (20:17)
[2023-02-11 08:10] VITALS: BP 136/73; PULSE 100; RESP 19; TEMP 97.8; O2SAT 96
[2023-02-11] MEDS: TRIHEXYPHENIDYL HCL 5 MG TABLET PO SCH ×2 (08:32→16:31)
[2023-02-11] MEDS: OMEGA-3/DHA/EPA/FISH OIL 1,000 MG CAPSULE PO SCH (08:32)
[2023-02-11] MEDS: AmLODIPine BESYLATE 5 MG TABLET PO SCH (08:32)
[2023-02-11] MEDS: GABAPENTIN 300 MG CAPSULE PO SCH ×3 (08:32→16:31)
[2023-02-11] MEDS: DOCUSATE SODIUM 250 MG CAPSULE PO SCH ×2 (08:32→16:31)
[2023-02-11] MEDS: LISINOPRIL 10 MG TABLET PO SCH (08:33)
[2023-02-11] MEDS: FLUoxetine HCL 20 MG CAPSULE PO SCH (08:33)
[2023-02-11 10:30] VITALS: RESP 19
[2023-02-11] MEDS: IBUPROFEN 600 MG TABLET PO PRN (10:30)
[2023-02-11 11:30] VITALS: RESP 18
[2023-02-11 20:11] VITALS: BP 115/62; PULSE 77; RESP 18; TEMP 98.2; O2SAT 99
[2023-02-11] MEDS: ATORVASTATIN CALCIUM 20 MG TABLET PO SCH (20:15)
[2023-02-11] MEDS: GABAPENTIN 400 MG CAPSULE PO SCH (20:15)
[2023-02-11] MEDS: MIRTAZAPINE 15 MG TABLET PO SCH (20:15)
[2023-02-11] MEDS: MELATONIN 5 MG TABLET PO SCH (20:15)
[2023-02-11] MEDS: OLANZapine 10 MG RAPDIS TABLET PO SCH (20:15)
[2023-02-12] MEDS: OMEGA-3/DHA/EPA/FISH OIL 1,000 MG CAPSULE PO SCH (08:38)
[2023-02-12] MEDS: TRIHEXYPHENIDYL HCL 5 MG TABLET PO SCH ×2 (08:38→16:35)
[2023-02-12] MEDS: DOCUSATE SODIUM 250 MG CAPSULE PO SCH ×2 (08:38→16:35)
[2023-02-12] MEDS: GABAPENTIN 300 MG CAPSULE PO SCH ×3 (08:39→16:35)
[2023-02-12] MEDS: FLUoxetine HCL 20 MG CAPSULE PO SCH (08:39)
[2023-02-12] MEDS: AmLODIPine BESYLATE 5 MG TABLET PO SCH (08:44)
[2023-02-12] MEDS: LISINOPRIL 10 MG TABLET PO SCH (08:44)
[2023-02-12 09:03] VITALS: RESP 18
[2023-02-12] MEDS: TraMADol HCL 50 MG TABLET PO PRN (10:08)
[2023-02-12] MEDS: MIRTAZAPINE 15 MG TABLET PO SCH (20:07)
[2023-02-12] MEDS: MELATONIN 5 MG TABLET PO SCH (20:07)
[2023-02-12] MEDS: GABAPENTIN 400 MG CAPSULE PO SCH (20:07)
[2023-02-12] MEDS: OLANZapine 10 MG RAPDIS TABLET PO SCH (20:08)
[2023-02-12] MEDS: ATORVASTATIN CALCIUM 20 MG TABLET PO SCH (20:08)
[2023-02-12 20:31] VITALS: BP 126/68; PULSE 74; RESP 17; TEMP 98.2; O2SAT 99
[2023-02-13 08:10] VITALS: BP 144/69; PULSE 79; RESP 18; TEMP 98.3; O2SAT 97
[2023-02-13] MEDS: TRIHEXYPHENIDYL HCL 5 MG TABLET PO SCH ×2 (08:24→17:03)
[2023-02-13] MEDS: DOCUSATE SODIUM 250 MG CAPSULE PO SCH ×2 (08:24→17:03)
[2023-02-13] MEDS: AmLODIPine BESYLATE 5 MG TABLET PO SCH (08:25)
[2023-02-13] MEDS: GABAPENTIN 300 MG CAPSULE PO SCH ×3 (08:25→17:03)
[2023-02-13] MEDS: LISINOPRIL 10 MG TABLET PO SCH (08:25)
[2023-02-13] MEDS: OMEGA-3/DHA/EPA/FISH OIL 1,000 MG CAPSULE PO SCH (08:25)
[2023-02-13] MEDS: FLUoxetine HCL 20 MG CAPSULE PO SCH (08:25)
[2023-02-13 12:37] VITALS: RESP 18; O2SAT 97
[2023-02-13] MEDS: IBUPROFEN 600 MG TABLET PO PRN (12:37)
[2023-02-13 13:37] VITALS: RESP 17
[2023-02-13] MEDS: GABAPENTIN 400 MG CAPSULE PO SCH (20:34)
[2023-02-13] MEDS: OLANZapine 10 MG RAPDIS TABLET PO SCH (20:34)
[2023-02-13] MEDS: MIRTAZAPINE 15 MG TABLET PO SCH (20:34)
[2023-02-13] MEDS: ATORVASTATIN CALCIUM 20 MG TABLET PO SCH (20:34)
[2023-02-13] MEDS: MELATONIN 5 MG TABLET PO SCH (20:35)
[2023-02-13 20:51] VITALS: BP 123/60; PULSE 87; RESP 18; TEMP 97.4; O2SAT 99
[2023-02-14 06:40] VITALS: BP 132/66; PULSE 78; RESP 16; TEMP 98; O2SAT 98
[2023-02-14] MEDS: IBUPROFEN 600 MG TABLET PO PRN (06:40)
[2023-02-14 07:40] VITALS: RESP 16
[2023-02-14 08:57] VITALS: BP 150/76; PULSE 88; RESP 17; TEMP 97; O2SAT 98
[2023-02-14] MEDS: DOCUSATE SODIUM 250 MG CAPSULE PO SCH ×2 (09:13→16:25)
[2023-02-14] MEDS: OMEGA-3/DHA/EPA/FISH OIL 1,000 MG CAPSULE PO SCH (09:13)
[2023-02-14] MEDS: GABAPENTIN 300 MG CAPSULE PO SCH ×3 (09:13→16:25)
[2023-02-14] MEDS: TRIHEXYPHENIDYL HCL 5 MG TABLET PO SCH ×2 (09:13→16:25)
[2023-02-14] MEDS: FLUoxetine HCL 20 MG CAPSULE PO SCH (09:13)
[2023-02-14] MEDS: AmLODIPine BESYLATE 5 MG TABLET PO SCH (09:13)
[2023-02-14] MEDS: LISINOPRIL 10 MG TABLET PO SCH (09:13)
[2023-02-14 14:39] VITALS: RESP 18
[2023-02-14] MEDS: ACETAMINOPHEN 325 MG TABLET PO PRN (14:39)
[2023-02-14 15:39] VITALS: RESP 17
[2023-02-14 20:44] VITALS: BP 143/98; RESP 18; TEMP 97.2
[2023-02-14] MEDS: OLANZapine 10 MG RAPDIS TABLET PO SCH (21:00)
[2023-02-14] MEDS: GABAPENTIN 400 MG CAPSULE PO SCH (21:01)
[2023-02-14] MEDS: MIRTAZAPINE 15 MG TABLET PO SCH (21:01)
[2023-02-14] MEDS: ATORVASTATIN CALCIUM 20 MG TABLET PO SCH (21:01)
[2023-02-14] MEDS: MELATONIN 5 MG TABLET PO SCH (21:03)
[2023-02-15 08:09] VITALS: BP 147/84; PULSE 83; RESP 18; TEMP 97.4; O2SAT 98
[2023-02-15] MEDS: DOCUSATE SODIUM 250 MG CAPSULE PO SCH ×2 (08:43→16:29)
[2023-02-15] MEDS: TRIHEXYPHENIDYL HCL 5 MG TABLET PO SCH ×2 (08:43→16:29)
[2023-02-15] MEDS: FLUoxetine HCL 20 MG CAPSULE PO SCH (08:43)
[2023-02-15] MEDS: OMEGA-3/DHA/EPA/FISH OIL 1,000 MG CAPSULE PO SCH (08:43)
[2023-02-15] MEDS: GABAPENTIN 300 MG CAPSULE PO SCH ×3 (08:44→16:30)
[2023-02-15] MEDS: LISINOPRIL 10 MG TABLET PO SCH (08:44)
[2023-02-15] MEDS: AmLODIPine BESYLATE 5 MG TABLET PO SCH (08:44)
[2023-02-15 09:10] VITALS: RESP 18
[2023-02-15] MEDS: IBUPROFEN 600 MG TABLET PO PRN ×2 (09:10→21:23)
[2023-02-15 10:10] VITALS: RESP 17
[2023-02-15 20:00] VITALS: BP 148/90; PULSE 74; RESP 18; TEMP 98.4; O2SAT 95
[2023-02-15] MEDS: GABAPENTIN 400 MG CAPSULE PO SCH (20:14)
[2023-02-15] MEDS: ATORVASTATIN CALCIUM 20 MG TABLET PO SCH (20:15)
[2023-02-15] MEDS: MIRTAZAPINE 15 MG TABLET PO SCH (20:15)
[2023-02-15] MEDS: OLANZapine 10 MG RAPDIS TABLET PO SCH (20:15)
[2023-02-15] MEDS: MELATONIN 5 MG TABLET PO SCH (20:15)
[2023-02-16 08:10] VITALS: RESP 17
[2023-02-16 09:39] VITALS: BP 131/81; RESP 17
[2023-02-16] MEDS: DOCUSATE SODIUM 250 MG CAPSULE PO SCH ×2 (09:41→16:34)
[2023-02-16] MEDS: AmLODIPine BESYLATE 5 MG TABLET PO SCH (09:41)
[2023-02-16] MEDS: TRIHEXYPHENIDYL HCL 5 MG TABLET PO SCH ×2 (09:41→16:33)
[2023-02-16] MEDS: FLUoxetine HCL 20 MG CAPSULE PO SCH (09:42)
[2023-02-16] MEDS: LISINOPRIL 10 MG TABLET PO SCH (09:42)
[2023-02-16] MEDS: OMEGA-3/DHA/EPA/FISH OIL 1,000 MG CAPSULE PO SCH (09:42)
[2023-02-16] MEDS: GABAPENTIN 300 MG CAPSULE PO SCH ×3 (09:42→16:33)
[2023-02-16] MEDS: ATORVASTATIN CALCIUM 20 MG TABLET PO SCH (20:00)
[2023-02-16] MEDS: MIRTAZAPINE 15 MG TABLET PO SCH (20:00)
[2023-02-16] MEDS: GABAPENTIN 400 MG CAPSULE PO SCH (20:00)
[2023-02-16] MEDS: OLANZapine 10 MG RAPDIS TABLET PO SCH (20:01)
[2023-02-16] MEDS: MELATONIN 5 MG TABLET PO SCH (20:01)
[2023-02-16 20:31] VITALS: BP 136/70; PULSE 70; RESP 16; TEMP 98.3; O2SAT 98
[2023-02-17 08:01] VITALS: BP 125/63; PULSE 74; RESP 17; TEMP 98; O2SAT 99
[2023-02-17] MEDS: FLUoxetine HCL 20 MG CAPSULE PO SCH (08:32)
[2023-02-17] MEDS: GABAPENTIN 300 MG CAPSULE PO SCH ×3 (08:32→16:21)
[2023-02-17] MEDS: TRIHEXYPHENIDYL HCL 5 MG TABLET PO SCH ×2 (08:32→16:21)
[2023-02-17] MEDS: OMEGA-3/DHA/EPA/FISH OIL 1,000 MG CAPSULE PO SCH (08:32)
[2023-02-17] MEDS: AmLODIPine BESYLATE 5 MG TABLET PO SCH (08:33)
[2023-02-17] MEDS: LISINOPRIL 10 MG TABLET PO SCH (08:33)
[2023-02-17] MEDS: DOCUSATE SODIUM 250 MG CAPSULE PO SCH ×2 (08:33→16:21)
[2023-02-17 08:42] VITALS: RESP 17
[2023-02-17] MEDS: IBUPROFEN 600 MG TABLET PO PRN (08:42)
[2023-02-17 09:42] VITALS: RESP 16
[2023-02-17 20:02] VITALS: BP 124/68; PULSE 78; RESP 16; TEMP 98.1; O2SAT 98
[2023-02-17] MEDS: MIRTAZAPINE 15 MG TABLET PO SCH (20:09)
[2023-02-17] MEDS: MELATONIN 5 MG TABLET PO SCH (20:10)
[2023-02-17] MEDS: OLANZapine 10 MG RAPDIS TABLET PO SCH (20:10)
[2023-02-17] MEDS: GABAPENTIN 400 MG CAPSULE PO SCH (20:10)
[2023-02-17] MEDS: ATORVASTATIN CALCIUM 20 MG TABLET PO SCH (20:10)
[2023-02-18 08:00] VITALS: BP 146/85; PULSE 93; RESP 17; TEMP 98.4; O2SAT 99
[2023-02-18] MEDS: OMEGA-3/DHA/EPA/FISH OIL 1,000 MG CAPSULE PO SCH (08:55)
[2023-02-18] MEDS: TRIHEXYPHENIDYL HCL 5 MG TABLET PO SCH ×2 (08:55→16:59)
[2023-02-18] MEDS: AmLODIPine BESYLATE 5 MG TABLET PO SCH (08:55)
[2023-02-18] MEDS: LISINOPRIL 10 MG TABLET PO SCH (08:55)
[2023-02-18] MEDS: DOCUSATE SODIUM 250 MG CAPSULE PO SCH ×2 (08:55→16:59)
[2023-02-18] MEDS: FLUoxetine HCL 20 MG CAPSULE PO SCH (08:55)
[2023-02-18] MEDS: GABAPENTIN 300 MG CAPSULE PO SCH ×3 (08:55→16:59)
[2023-02-18 08:56] VITALS: RESP 17
[2023-02-18] MEDS: IBUPROFEN 600 MG TABLET PO PRN (08:56)
[2023-02-18 09:56] VITALS: RESP 17
[2023-02-18 14:10] VITALS: BP 122/77; PULSE 77; RESP 18
[2023-02-18] MEDS: ATORVASTATIN CALCIUM 20 MG TABLET PO SCH (20:04)
[2023-02-18] MEDS: MELATONIN 5 MG TABLET PO SCH (20:04)
[2023-02-18] MEDS: OLANZapine 10 MG RAPDIS TABLET PO SCH (20:05)
[2023-02-18] MEDS: GABAPENTIN 400 MG CAPSULE PO SCH (20:05)
[2023-02-18] MEDS: MIRTAZAPINE 15 MG TABLET PO SCH (20:05)
[2023-02-18 20:42] VITALS: RESP 17; TEMP 97.9
[2023-02-19 08:09] VITALS: BP 138/62; PULSE 88; RESP 19; TEMP 98; O2SAT 97
[2023-02-19] MEDS: TRIHEXYPHENIDYL HCL 5 MG TABLET PO SCH ×2 (09:18→16:38)
[2023-02-19] MEDS: FLUoxetine HCL 20 MG CAPSULE PO SCH (09:18)
[2023-02-19] MEDS: GABAPENTIN 300 MG CAPSULE PO SCH ×3 (09:18→16:37)
[2023-02-19] MEDS: DOCUSATE SODIUM 250 MG CAPSULE PO SCH ×2 (09:19→16:37)
[2023-02-19] MEDS: OMEGA-3/DHA/EPA/FISH OIL 1,000 MG CAPSULE PO SCH (09:19)
[2023-02-19] MEDS: LISINOPRIL 10 MG TABLET PO SCH (09:19)
[2023-02-19] MEDS: AmLODIPine BESYLATE 5 MG TABLET PO SCH (09:20)
[2023-02-19 09:21] VITALS: RESP 19
[2023-02-19] MEDS: IBUPROFEN 600 MG TABLET PO PRN (09:21)
[2023-02-19 10:21] VITALS: RESP 18
[2023-02-19] MEDS: MELATONIN 5 MG TABLET PO SCH (20:37)
[2023-02-19] MEDS: GABAPENTIN 400 MG CAPSULE PO SCH (20:37)
[2023-02-19] MEDS: MIRTAZAPINE 15 MG TABLET PO SCH (20:37)
[2023-02-19] MEDS: ATORVASTATIN CALCIUM 20 MG TABLET PO SCH (20:38)
[2023-02-19] MEDS: OLANZapine 10 MG RAPDIS TABLET PO SCH (20:38)
[2023-02-19 22:30] VITALS: BP 140/64; PULSE 86; RESP 18; TEMP 98; O2SAT 99
[2023-02-20 08:31] VITALS: BP 141/89; PULSE 88; RESP 18; TEMP 98; O2SAT 98
[2023-02-20] MEDS: GABAPENTIN 300 MG CAPSULE PO SCH ×3 (08:39→17:02)
[2023-02-20] MEDS: TRIHEXYPHENIDYL HCL 5 MG TABLET PO SCH ×2 (08:41→17:02)
[2023-02-20] MEDS: LISINOPRIL 10 MG TABLET PO SCH (08:41)
[2023-02-20] MEDS: DOCUSATE SODIUM 250 MG CAPSULE PO SCH ×2 (08:41→17:02)
[2023-02-20] MEDS: OMEGA-3/DHA/EPA/FISH OIL 1,000 MG CAPSULE PO SCH (08:41)
[2023-02-20] MEDS: AmLODIPine BESYLATE 5 MG TABLET PO SCH (08:41)
[2023-02-20] MEDS: FLUoxetine HCL 20 MG CAPSULE PO SCH (08:41)
[2023-02-20 10:07] VITALS: RESP 18; O2SAT 98
[2023-02-20] MEDS: IBUPROFEN 600 MG TABLET PO PRN (10:07)
[2023-02-20 11:07] VITALS: RESP 17; O2SAT 98
[2023-02-20 20:03] VITALS: BP 147/85; PULSE 78; RESP 20; TEMP 98.6; O2SAT 99
[2023-02-20] MEDS: MELATONIN 5 MG TABLET PO SCH (20:09)
[2023-02-20] MEDS: OLANZapine 10 MG RAPDIS TABLET PO SCH (20:09)
[2023-02-20] MEDS: ATORVASTATIN CALCIUM 20 MG TABLET PO SCH (20:09)
[2023-02-20] MEDS: GABAPENTIN 400 MG CAPSULE PO SCH (20:09)
[2023-02-20] MEDS: MIRTAZAPINE 15 MG TABLET PO SCH (20:09)
[2023-02-21 08:05] VITALS: BP 137/83; PULSE 92; RESP 18; TEMP 97.9; O2SAT 97
[2023-02-21] MEDS: FLUoxetine HCL 20 MG CAPSULE PO SCH (09:30)
[2023-02-21] MEDS: LISINOPRIL 10 MG TABLET PO SCH (09:30)
[2023-02-21] MEDS: AmLODIPine BESYLATE 5 MG TABLET PO SCH (09:30)
[2023-02-21] MEDS: DOCUSATE SODIUM 250 MG CAPSULE PO SCH ×2 (09:30→16:41)
[2023-02-21] MEDS: OMEGA-3/DHA/EPA/FISH OIL 1,000 MG CAPSULE PO SCH (09:30)
[2023-02-21] MEDS: GABAPENTIN 300 MG CAPSULE PO SCH ×3 (09:30→16:41)
[2023-02-21] MEDS: TRIHEXYPHENIDYL HCL 5 MG TABLET PO SCH ×2 (09:30→16:41)
[2023-02-21 10:02] VITALS: RESP 18; O2SAT 97
[2023-02-21] MEDS: IBUPROFEN 600 MG TABLET PO PRN (10:02)
[2023-02-21 11:02] VITALS: RESP 17; O2SAT 97
[2023-02-21 20:16] VITALS: BP 134/70; PULSE 86; RESP 18; TEMP 97.2; O2SAT 98
[2023-02-21] MEDS: MIRTAZAPINE 15 MG TABLET PO SCH (20:17)
[2023-02-21] MEDS: OLANZapine 10 MG RAPDIS TABLET PO SCH (20:18)
[2023-02-21] MEDS: ATORVASTATIN CALCIUM 20 MG TABLET PO SCH (20:18)
[2023-02-21] MEDS: MELATONIN 5 MG TABLET PO SCH (20:18)
[2023-02-21] MEDS: GABAPENTIN 400 MG CAPSULE PO SCH (20:18)
[2023-02-22] MEDS: OMEGA-3/DHA/EPA/FISH OIL 1,000 MG CAPSULE PO SCH (08:14)
[2023-02-22] MEDS: IBUPROFEN 600 MG TABLET PO PRN (08:14)
[2023-02-22] MEDS: AmLODIPine BESYLATE 5 MG TABLET PO SCH (08:14)
[2023-02-22 08:15] VITALS: RESP 18
[2023-02-22] MEDS: DOCUSATE SODIUM 250 MG CAPSULE PO SCH ×2 (08:15→16:33)
[2023-02-22] MEDS: FLUoxetine HCL 20 MG CAPSULE PO SCH (08:15)
[2023-02-22] MEDS: GABAPENTIN 300 MG CAPSULE PO SCH ×3 (08:15→16:34)
[2023-02-22] MEDS: TRIHEXYPHENIDYL HCL 5 MG TABLET PO SCH ×2 (08:15→16:34)
[2023-02-22] MEDS: LISINOPRIL 10 MG TABLET PO SCH (08:16)
[2023-02-22 09:15] VITALS: RESP 18
[2023-02-22 20:08] VITALS: BP 117/77; PULSE 72; RESP 18; TEMP 98.2; O2SAT 98
[2023-02-22] MEDS: OLANZapine 10 MG RAPDIS TABLET PO SCH (20:33)
[2023-02-22] MEDS: MIRTAZAPINE 15 MG TABLET PO SCH (20:33)
[2023-02-22] MEDS: GABAPENTIN 400 MG CAPSULE PO SCH (20:34)
[2023-02-22] MEDS: MELATONIN 5 MG TABLET PO SCH (20:34)
[2023-02-22] MEDS: ATORVASTATIN CALCIUM 20 MG TABLET PO SCH (20:34)
[2023-02-23 08:13] VITALS: BP 118/79; PULSE 79; RESP 18; TEMP 98.3
[2023-02-23] MEDS: FLUoxetine HCL 20 MG CAPSULE PO SCH (08:20)
[2023-02-23] MEDS: TRIHEXYPHENIDYL HCL 5 MG TABLET PO SCH ×2 (08:20→16:24)
[2023-02-23] MEDS: AmLODIPine BESYLATE 5 MG TABLET PO SCH (08:20)
[2023-02-23] MEDS: OMEGA-3/DHA/EPA/FISH OIL 1,000 MG CAPSULE PO SCH (08:20)
[2023-02-23] MEDS: GABAPENTIN 300 MG CAPSULE PO SCH ×3 (08:21→16:25)
[2023-02-23] MEDS: LISINOPRIL 10 MG TABLET PO SCH (08:21)
[2023-02-23] MEDS: DOCUSATE SODIUM 250 MG CAPSULE PO SCH ×2 (08:21→16:24)
[2023-02-23 12:29] VITALS: RESP 18
[2023-02-23] MEDS: IBUPROFEN 600 MG TABLET PO PRN (12:29)
[2023-02-23 13:29] VITALS: RESP 18
[2023-02-23] MEDS: GABAPENTIN 400 MG CAPSULE PO SCH (20:32)
[2023-02-23] MEDS: OLANZapine 10 MG RAPDIS TABLET PO SCH (20:32)
[2023-02-23] MEDS: MELATONIN 5 MG TABLET PO SCH (20:32)
[2023-02-23] MEDS: MIRTAZAPINE 15 MG TABLET PO SCH (20:32)
[2023-02-23] MEDS: ATORVASTATIN CALCIUM 20 MG TABLET PO SCH (20:32)
[2023-02-23 20:43] VITALS: BP 112/74; PULSE 85; RESP 18; TEMP 97.7; O2SAT 98
[2023-02-24 08:09] VITALS: BP 112/66; PULSE 96; RESP 16; TEMP 98.1
[2023-02-24] MEDS: DOCUSATE SODIUM 250 MG CAPSULE PO SCH ×2 (08:11→16:14)
[2023-02-24] MEDS: OMEGA-3/DHA/EPA/FISH OIL 1,000 MG CAPSULE PO SCH (08:11)
[2023-02-24] MEDS: TRIHEXYPHENIDYL HCL 5 MG TABLET PO SCH ×2 (08:11→16:13)
[2023-02-24] MEDS: GABAPENTIN 300 MG CAPSULE PO SCH ×3 (08:12→16:14)
[2023-02-24] MEDS: LISINOPRIL 10 MG TABLET PO SCH (08:12)
[2023-02-24] MEDS: AmLODIPine BESYLATE 5 MG TABLET PO SCH (08:12)
[2023-02-24] MEDS: FLUoxetine HCL 20 MG CAPSULE PO SCH (08:12)
[2023-02-24 09:24] VITALS: RESP 18
[2023-02-24] MEDS: IBUPROFEN 600 MG TABLET PO PRN (09:24)
[2023-02-24 10:24] VITALS: RESP 17
[2023-02-24 20:14] VITALS: BP 115/81; PULSE 91; RESP 18; TEMP 97.9
[2023-02-24] MEDS: MIRTAZAPINE 15 MG TABLET PO SCH (20:29)
[2023-02-24] MEDS: OLANZapine 10 MG RAPDIS TABLET PO SCH (20:29)
[2023-02-24] MEDS: ATORVASTATIN CALCIUM 20 MG TABLET PO SCH (20:30)
[2023-02-24] MEDS: GABAPENTIN 400 MG CAPSULE PO SCH (20:30)
[2023-02-24] MEDS: MELATONIN 5 MG TABLET PO SCH (20:31)
[2023-02-25] MEDS: GABAPENTIN 300 MG CAPSULE PO SCH ×3 (08:06→16:38)
[2023-02-25] MEDS: TRIHEXYPHENIDYL HCL 5 MG TABLET PO SCH ×2 (08:06→16:38)
[2023-02-25] MEDS: DOCUSATE SODIUM 250 MG CAPSULE PO SCH ×2 (08:06→16:38)
[2023-02-25] MEDS: AmLODIPine BESYLATE 5 MG TABLET PO SCH (08:06)
[2023-02-25] MEDS: OMEGA-3/DHA/EPA/FISH OIL 1,000 MG CAPSULE PO SCH (08:06)
[2023-02-25] MEDS: LISINOPRIL 10 MG TABLET PO SCH (08:06)
[2023-02-25] MEDS: FLUoxetine HCL 20 MG CAPSULE PO SCH (08:07)
[2023-02-25 08:10] VITALS: BP 139/99; PULSE 99; RESP 18; TEMP 98.1; O2SAT 97
[2023-02-25 09:20] VITALS: RESP 18
[2023-02-25] MEDS: IBUPROFEN 600 MG TABLET PO PRN (09:20)
[2023-02-25 10:20] VITALS: RESP 17
[2023-02-25 20:04] VITALS: BP 149/90; PULSE 90; RESP 20; TEMP 97.8; O2SAT 100
[2023-02-25] MEDS: GABAPENTIN 400 MG CAPSULE PO SCH (20:33)
[2023-02-25] MEDS: ATORVASTATIN CALCIUM 20 MG TABLET PO SCH (20:34)
[2023-02-25] MEDS: MELATONIN 5 MG TABLET PO SCH (20:34)
[2023-02-25] MEDS: OLANZapine 10 MG RAPDIS TABLET PO SCH (20:34)
[2023-02-25] MEDS: MIRTAZAPINE 15 MG TABLET PO SCH (20:34)
[2023-02-26] MEDS: IBUPROFEN 600 MG TABLET PO PRN (05:58)
[2023-02-26 06:00] VITALS: BP 149/89; PULSE 87; RESP 18; TEMP 97.6; O2SAT 98
[2023-02-26] MEDS: TRIHEXYPHENIDYL HCL 5 MG TABLET PO SCH ×2 (08:05→16:39)
[2023-02-26] MEDS: OMEGA-3/DHA/EPA/FISH OIL 1,000 MG CAPSULE PO SCH (08:06)
[2023-02-26] MEDS: AmLODIPine BESYLATE 5 MG TABLET PO SCH (08:06)
[2023-02-26] MEDS: DOCUSATE SODIUM 250 MG CAPSULE PO SCH ×2 (08:06→16:39)
[2023-02-26] MEDS: GABAPENTIN 300 MG CAPSULE PO SCH ×3 (08:06→16:39)
[2023-02-26] MEDS: FLUoxetine HCL 20 MG CAPSULE PO SCH (08:08)
[2023-02-26] MEDS: LISINOPRIL 10 MG TABLET PO SCH (08:08)
[2023-02-26 08:19] VITALS: BP 145/90; PULSE 85; RESP 19; TEMP 97.3
[2023-02-26 20:08] VITALS: BP 145/88; PULSE 78; RESP 18; TEMP 97.5; O2SAT 97
[2023-02-26] MEDS: MELATONIN 5 MG TABLET PO SCH (20:34)
[2023-02-26] MEDS: ATORVASTATIN CALCIUM 20 MG TABLET PO SCH (20:34)
[2023-02-26] MEDS: MIRTAZAPINE 15 MG TABLET PO SCH (20:34)
[2023-02-26] MEDS: GABAPENTIN 400 MG CAPSULE PO SCH (20:35)
[2023-02-26] MEDS: OLANZapine 10 MG RAPDIS TABLET PO SCH (20:35)
[2023-02-27] MEDS: OMEGA-3/DHA/EPA/FISH OIL 1,000 MG CAPSULE PO SCH (08:33)
[2023-02-27] MEDS: TRIHEXYPHENIDYL HCL 5 MG TABLET PO SCH ×2 (08:33→16:15)
[2023-02-27] MEDS: DOCUSATE SODIUM 250 MG CAPSULE PO SCH ×2 (08:33→16:15)
[2023-02-27] MEDS: AmLODIPine BESYLATE 5 MG TABLET PO SCH (08:33)
[2023-02-27] MEDS: GABAPENTIN 300 MG CAPSULE PO SCH ×3 (08:33→16:15)
[2023-02-27] MEDS: FLUoxetine HCL 20 MG CAPSULE PO SCH (08:33)
[2023-02-27] MEDS: LISINOPRIL 10 MG TABLET PO SCH (08:34)
[2023-02-27 08:41] VITALS: BP 153/102; PULSE 90; RESP 18; TEMP 98.3; O2SAT 96
[2023-02-27 10:27] VITALS: RESP 18; O2SAT 96
[2023-02-27] MEDS: IBUPROFEN 600 MG TABLET PO PRN (10:27)
[2023-02-27 11:27] VITALS: RESP 18; O2SAT 96
[2023-02-27 13:05] VITALS: BP 134/97
[2023-02-27 20:07] VITALS: BP 141/72; PULSE 88; RESP 18; TEMP 97.8; O2SAT 97
[2023-02-27] MEDS: MELATONIN 5 MG TABLET PO SCH (20:31)
[2023-02-27] MEDS: GABAPENTIN 400 MG CAPSULE PO SCH (20:31)
[2023-02-27] MEDS: ATORVASTATIN CALCIUM 20 MG TABLET PO SCH (20:31)
[2023-02-27] MEDS: MIRTAZAPINE 15 MG TABLET PO SCH (20:31)
[2023-02-27] MEDS: OLANZapine 10 MG RAPDIS TABLET PO SCH (20:32)
[2023-02-28 08:33] VITALS: BP 160/80; PULSE 78; RESP 16; TEMP 97.7; O2SAT 98
[2023-02-28 08:41] VITALS: RESP 17; O2SAT 98
[2023-02-28] MEDS: IBUPROFEN 600 MG TABLET PO PRN (08:41)
[2023-02-28] MEDS: TRIHEXYPHENIDYL HCL 5 MG TABLET PO SCH ×2 (08:42→16:15)
[2023-02-28] MEDS: OMEGA-3/DHA/EPA/FISH OIL 1,000 MG CAPSULE PO SCH (08:43)
[2023-02-28] MEDS: AmLODIPine BESYLATE 5 MG TABLET PO SCH (08:43)
[2023-02-28] MEDS: LISINOPRIL 10 MG TABLET PO SCH (08:43)
[2023-02-28] MEDS: DOCUSATE SODIUM 250 MG CAPSULE PO SCH ×2 (08:43→16:15)
[2023-02-28] MEDS: FLUoxetine HCL 20 MG CAPSULE PO SCH (08:43)
[2023-02-28] MEDS: GABAPENTIN 300 MG CAPSULE PO SCH ×3 (08:43→16:15)
[2023-02-28 09:41] VITALS: RESP 17; O2SAT 98
[2023-02-28 13:06] VITALS: RESP 17; O2SAT 98
[2023-02-28] MEDS: ACETAMINOPHEN 325 MG TABLET PO PRN (13:06)
[2023-02-28 14:06] VITALS: RESP 17; O2SAT 98
[2023-02-28 20:16] VITALS: BP 142/84; PULSE 84; RESP 18; TEMP 97.7; O2SAT 96
[2023-02-28] MEDS: GABAPENTIN 400 MG CAPSULE PO SCH (21:05)
[2023-02-28] MEDS: OLANZapine 10 MG RAPDIS TABLET PO SCH (21:05)
[2023-02-28] MEDS: MIRTAZAPINE 15 MG TABLET PO SCH (21:05)
[2023-02-28] MEDS: ATORVASTATIN CALCIUM 20 MG TABLET PO SCH (21:06)
[2023-02-28] MEDS: MELATONIN 5 MG TABLET PO SCH (21:06)
[2023-03-01] VITALS (7 sets, daily range): BP systolic 121–129; BP diastolic 66–87; PULSE 79–89; RESP 16–18; TEMP 97.6–97.9
[2023-03-01] MEDS: IBUPROFEN 600 MG TABLET PO PRN ×2 (06:32→16:54)
[2023-03-01] MEDS: OMEGA-3/DHA/EPA/FISH OIL 1,000 MG CAPSULE PO SCH (08:26)
[2023-03-01] MEDS: DOCUSATE SODIUM 250 MG CAPSULE PO SCH ×2 (08:27→16:33)
[2023-03-01] MEDS: TRIHEXYPHENIDYL HCL 5 MG TABLET PO SCH ×2 (08:27→16:33)
[2023-03-01] MEDS: LISINOPRIL 10 MG TABLET PO SCH (08:27)
[2023-03-01] MEDS: GABAPENTIN 300 MG CAPSULE PO SCH ×3 (08:27→16:33)
[2023-03-01] MEDS: AmLODIPine BESYLATE 5 MG TABLET PO SCH (08:28)
[2023-03-01] MEDS: FLUoxetine HCL 20 MG CAPSULE PO SCH (08:28)
[2023-03-01] MEDS: TraMADol HCL 50 MG TABLET PO PRN (10:33)
[2023-03-01] MEDS: MELATONIN 5 MG TABLET PO SCH (20:46)
[2023-03-01] MEDS: GABAPENTIN 400 MG CAPSULE PO SCH (20:46)
[2023-03-01] MEDS: ATORVASTATIN CALCIUM 20 MG TABLET PO SCH (20:46)
[2023-03-01] MEDS: MIRTAZAPINE 15 MG TABLET PO SCH (20:47)
[2023-03-01] MEDS: OLANZapine 10 MG RAPDIS TABLET PO SCH (20:47)
[2023-03-02] MEDS: TRIHEXYPHENIDYL HCL 5 MG TABLET PO SCH ×2 (08:22→16:20)
[2023-03-02] MEDS: FLUoxetine HCL 20 MG CAPSULE PO SCH (08:22)
[2023-03-02] MEDS: OMEGA-3/DHA/EPA/FISH OIL 1,000 MG CAPSULE PO SCH (08:22)
[2023-03-02] MEDS: DOCUSATE SODIUM 250 MG CAPSULE PO SCH ×2 (08:22→16:21)
[2023-03-02] MEDS: GABAPENTIN 300 MG CAPSULE PO SCH ×3 (08:23→16:21)
[2023-03-02] MEDS: AmLODIPine BESYLATE 5 MG TABLET PO SCH (08:23)
[2023-03-02] MEDS: LISINOPRIL 10 MG TABLET PO SCH (08:23)
[2023-03-02 08:27] VITALS: BP 112/61; PULSE 85; RESP 19; TEMP 98.3; O2SAT 97
[2023-03-02 09:44] VITALS: RESP 19; O2SAT 97
[2023-03-02] MEDS: IBUPROFEN 600 MG TABLET PO PRN (09:44)
[2023-03-02 10:44] VITALS: RESP 18; O2SAT 97
[2023-03-02] MEDS: GABAPENTIN 400 MG CAPSULE PO SCH (20:11)
[2023-03-02] MEDS: MIRTAZAPINE 15 MG TABLET PO SCH (20:12)
[2023-03-02] MEDS: OLANZapine 10 MG RAPDIS TABLET PO SCH (20:12)
[2023-03-02] MEDS: ATORVASTATIN CALCIUM 20 MG TABLET PO SCH (20:12)
[2023-03-02] MEDS: MELATONIN 5 MG TABLET PO SCH (20:12)
[2023-03-02 21:24] VITALS: RESP 17
[2023-03-03] MEDS: DOCUSATE SODIUM 250 MG CAPSULE PO SCH ×2 (08:01→16:05)
[2023-03-03] MEDS: OMEGA-3/DHA/EPA/FISH OIL 1,000 MG CAPSULE PO SCH (08:02)
[2023-03-03] MEDS: AmLODIPine BESYLATE 5 MG TABLET PO SCH (08:02)
[2023-03-03] MEDS: LISINOPRIL 10 MG TABLET PO SCH (08:02)
[2023-03-03] MEDS: TRIHEXYPHENIDYL HCL 5 MG TABLET PO SCH ×2 (08:02→16:05)
[2023-03-03] MEDS: GABAPENTIN 300 MG CAPSULE PO SCH ×3 (08:02→16:05)
[2023-03-03] MEDS: FLUoxetine HCL 20 MG CAPSULE PO SCH (08:03)
[2023-03-03 08:08] VITALS: BP 143/82; PULSE 90; RESP 17; TEMP 96.9; O2SAT 97
[2023-03-03 08:20] VITALS: RESP 17
[2023-03-03] MEDS: IBUPROFEN 600 MG TABLET PO PRN (08:20)
[2023-03-03 09:20] VITALS: RESP 16
[2023-03-03 11:09] VITALS: BP 132/78; PULSE 86; RESP 17
[2023-03-03] MEDS: TraMADol HCL 50 MG TABLET PO PRN (11:09)
[2023-03-03 12:09] VITALS: RESP 16
[2023-03-03] MEDS: GABAPENTIN 400 MG CAPSULE PO SCH (20:02)
[2023-03-03] MEDS: ATORVASTATIN CALCIUM 20 MG TABLET PO SCH (20:02)
[2023-03-03] MEDS: MELATONIN 5 MG TABLET PO SCH (20:02)
[2023-03-03 20:03] VITALS: BP 123/77; PULSE 78; RESP 17; TEMP 98.4
[2023-03-03] MEDS: OLANZapine 10 MG RAPDIS TABLET PO SCH (20:03)
[2023-03-03] MEDS: MIRTAZAPINE 15 MG TABLET PO SCH (20:12)
[2023-03-04 08:15] VITALS: BP 148/77; PULSE 92; RESP 16; TEMP 97.7; O2SAT 98
[2023-03-04] MEDS: TRIHEXYPHENIDYL HCL 5 MG TABLET PO SCH ×2 (08:18→16:32)
[2023-03-04] MEDS: DOCUSATE SODIUM 250 MG CAPSULE PO SCH ×2 (08:18→16:32)
[2023-03-04] MEDS: GABAPENTIN 300 MG CAPSULE PO SCH ×3 (08:19→16:32)
[2023-03-04] MEDS: LISINOPRIL 10 MG TABLET PO SCH (08:19)
[2023-03-04] MEDS: AmLODIPine BESYLATE 5 MG TABLET PO SCH (08:19)
[2023-03-04] MEDS: OMEGA-3/DHA/EPA/FISH OIL 1,000 MG CAPSULE PO SCH (08:19)
[2023-03-04] MEDS: FLUoxetine HCL 20 MG CAPSULE PO SCH (08:19)
[2023-03-04 08:29] VITALS: BP_SYST 148; PULSE 92; RESP 16; TEMP 97.7; O2SAT 98
[2023-03-04 09:26] VITALS: RESP 17
[2023-03-04] MEDS: IBUPROFEN 600 MG TABLET PO PRN (09:26)
[2023-03-04 10:26] VITALS: RESP 16
[2023-03-04 20:12] VITALS: BP 142/85; PULSE 95; RESP 18; TEMP 98.3; O2SAT 99
[2023-03-04] MEDS: MELATONIN 5 MG TABLET PO SCH (20:32)
[2023-03-04] MEDS: MIRTAZAPINE 15 MG TABLET PO SCH (20:32)
[2023-03-04] MEDS: ATORVASTATIN CALCIUM 20 MG TABLET PO SCH (20:32)
[2023-03-04] MEDS: GABAPENTIN 400 MG CAPSULE PO SCH (20:32)
[2023-03-04] MEDS: OLANZapine 10 MG RAPDIS TABLET PO SCH (20:33)
[2023-03-05] MEDS: TRIHEXYPHENIDYL HCL 5 MG TABLET PO SCH ×2 (08:30→16:26)
[2023-03-05] MEDS: FLUoxetine HCL 20 MG CAPSULE PO SCH (08:31)
[2023-03-05] MEDS: OMEGA-3/DHA/EPA/FISH OIL 1,000 MG CAPSULE PO SCH (08:31)
[2023-03-05] MEDS: AmLODIPine BESYLATE 5 MG TABLET PO SCH (08:31)
[2023-03-05] MEDS: GABAPENTIN 300 MG CAPSULE PO SCH ×3 (08:31→16:26)
[2023-03-05] MEDS: DOCUSATE SODIUM 250 MG CAPSULE PO SCH ×2 (08:31→16:26)
[2023-03-05] MEDS: LISINOPRIL 10 MG TABLET PO SCH (08:31)
[2023-03-05 08:54] VITALS: BP 136/104; PULSE 95; RESP 19; TEMP 98.2; O2SAT 99
[2023-03-05 10:13] VITALS: BP 140/65; RESP 19; O2SAT 98
[2023-03-05] MEDS: TraMADol HCL 50 MG TABLET PO PRN (10:13)
[2023-03-05 11:13] VITALS: RESP 18
[2023-03-05 17:57] VITALS: RESP 18
[2023-03-05] MEDS: IBUPROFEN 600 MG TABLET PO PRN (17:57)
[2023-03-05 18:57] VITALS: RESP 17
[2023-03-05 20:09] VITALS: BP 144/92; PULSE 110; RESP 19; TEMP 97.7; O2SAT 95
[2023-03-05] MEDS: MELATONIN 5 MG TABLET PO SCH (20:39)
[2023-03-05] MEDS: MIRTAZAPINE 15 MG TABLET PO SCH (20:39)
[2023-03-05] MEDS: GABAPENTIN 400 MG CAPSULE PO SCH (20:39)
[2023-03-05] MEDS: ATORVASTATIN CALCIUM 20 MG TABLET PO SCH (20:40)
[2023-03-05] MEDS: OLANZapine 10 MG RAPDIS TABLET PO SCH (20:40)
[2023-03-06 08:10] VITALS: BP 140/79; PULSE 83; RESP 19; TEMP 98; O2SAT 96
[2023-03-06] MEDS: TRIHEXYPHENIDYL HCL 5 MG TABLET PO SCH ×2 (08:16→16:20)
[2023-03-06] MEDS: OMEGA-3/DHA/EPA/FISH OIL 1,000 MG CAPSULE PO SCH (08:16)
[2023-03-06] MEDS: DOCUSATE SODIUM 250 MG CAPSULE PO SCH ×2 (08:16→16:20)
[2023-03-06] MEDS: FLUoxetine HCL 20 MG CAPSULE PO SCH (08:16)
[2023-03-06] MEDS: LISINOPRIL 10 MG TABLET PO SCH (08:17)
[2023-03-06] MEDS: AmLODIPine BESYLATE 5 MG TABLET PO SCH (08:17)
[2023-03-06] MEDS: GABAPENTIN 300 MG CAPSULE PO SCH ×3 (08:17→16:20)
[2023-03-06] MEDS: GABAPENTIN 400 MG CAPSULE PO SCH (20:35)
[2023-03-06] MEDS: MIRTAZAPINE 15 MG TABLET PO SCH (20:35)
[2023-03-06] MEDS: MELATONIN 5 MG TABLET PO SCH (20:36)
[2023-03-06] MEDS: OLANZapine 10 MG RAPDIS TABLET PO SCH (20:36)
[2023-03-06] MEDS: ATORVASTATIN CALCIUM 20 MG TABLET PO SCH (20:36)
[2023-03-06 21:28] VITALS: RESP 17
[2023-03-07 08:04] VITALS: BP 138/97; PULSE 72; RESP 18; TEMP 98; O2SAT 96
[2023-03-07] MEDS: OMEGA-3/DHA/EPA/FISH OIL 1,000 MG CAPSULE PO SCH (08:16)
[2023-03-07] MEDS: DOCUSATE SODIUM 250 MG CAPSULE PO SCH ×2 (08:16→16:16)
[2023-03-07] MEDS: TRIHEXYPHENIDYL HCL 5 MG TABLET PO SCH ×2 (08:16→16:16)
[2023-03-07] MEDS: GABAPENTIN 300 MG CAPSULE PO SCH ×3 (08:16→16:16)
[2023-03-07] MEDS: FLUoxetine HCL 20 MG CAPSULE PO SCH (08:17)
[2023-03-07] MEDS: LISINOPRIL 10 MG TABLET PO SCH (08:17)
[2023-03-07] MEDS: AmLODIPine BESYLATE 5 MG TABLET PO SCH (08:17)
[2023-03-07 08:24] VITALS: RESP 18
[2023-03-07] MEDS: IBUPROFEN 600 MG TABLET PO PRN (08:24)
[2023-03-07 09:24] VITALS: RESP 17
[2023-03-07] MEDS: ATORVASTATIN CALCIUM 20 MG TABLET PO SCH (20:23)
[2023-03-07] MEDS: GABAPENTIN 400 MG CAPSULE PO SCH (20:23)
[2023-03-07] MEDS: MIRTAZAPINE 15 MG TABLET PO SCH (20:24)
[2023-03-07] MEDS: MELATONIN 5 MG TABLET PO SCH (20:25)
[2023-03-07] MEDS: OLANZapine 10 MG RAPDIS TABLET PO SCH (20:25)
[2023-03-07 21:50] VITALS: BP 129/68; PULSE 96; RESP 18; TEMP 97.5; O2SAT 98
[2023-03-08 08:05] VITALS: BP 140/83; PULSE 83; RESP 19; TEMP 97.6; O2SAT 97
[2023-03-08] MEDS: TRIHEXYPHENIDYL HCL 5 MG TABLET PO SCH ×2 (08:10→16:32)
[2023-03-08] MEDS: OMEGA-3/DHA/EPA/FISH OIL 1,000 MG CAPSULE PO SCH (08:10)
[2023-03-08] MEDS: GABAPENTIN 300 MG CAPSULE PO SCH ×3 (08:10→16:32)
[2023-03-08] MEDS: DOCUSATE SODIUM 250 MG CAPSULE PO SCH ×2 (08:11→16:32)
[2023-03-08] MEDS: FLUoxetine HCL 20 MG CAPSULE PO SCH (08:11)
[2023-03-08] MEDS: LISINOPRIL 10 MG TABLET PO SCH (08:11)
[2023-03-08] MEDS: AmLODIPine BESYLATE 5 MG TABLET PO SCH (08:24)
[2023-03-08] MEDS: TraMADol HCL 50 MG TABLET PO PRN (09:36)
[2023-03-08] MEDS: MIRTAZAPINE 15 MG TABLET PO SCH (20:06)
[2023-03-08] MEDS: OLANZapine 10 MG RAPDIS TABLET PO SCH (20:06)
[2023-03-08] MEDS: ATORVASTATIN CALCIUM 20 MG TABLET PO SCH (20:06)
[2023-03-08] MEDS: MELATONIN 5 MG TABLET PO SCH (20:06)
[2023-03-08] MEDS: GABAPENTIN 400 MG CAPSULE PO SCH (20:07)
[2023-03-08 20:14] VITALS: BP 138/82; PULSE 85; RESP 18; TEMP 97.8; O2SAT 97
[2023-03-09 09:09] VITALS: RESP 18
[2023-03-09] MEDS: FLUoxetine HCL 20 MG CAPSULE PO SCH (09:09)
[2023-03-09] MEDS: DOCUSATE SODIUM 250 MG CAPSULE PO SCH ×2 (09:09→16:14)
[2023-03-09] MEDS: LISINOPRIL 10 MG TABLET PO SCH (09:09)
[2023-03-09] MEDS: AmLODIPine BESYLATE 5 MG TABLET PO SCH (09:09)
[2023-03-09] MEDS: GABAPENTIN 300 MG CAPSULE PO SCH ×3 (09:09→16:14)
[2023-03-09] MEDS: OMEGA-3/DHA/EPA/FISH OIL 1,000 MG CAPSULE PO SCH (09:09)
[2023-03-09] MEDS: TRIHEXYPHENIDYL HCL 5 MG TABLET PO SCH ×2 (09:09→16:13)
[2023-03-09] MEDS: TraMADol HCL 50 MG TABLET PO PRN (09:09)
[2023-03-09 10:01] VITALS: BP 149/83; PULSE 101; RESP 19; TEMP 97.7; O2SAT 98
[2023-03-09 10:09] VITALS: RESP 17
[2023-03-09] MEDS: OLANZapine 10 MG RAPDIS TABLET PO SCH (20:36)
[2023-03-09] MEDS: MIRTAZAPINE 15 MG TABLET PO SCH (20:36)
[2023-03-09] MEDS: MELATONIN 5 MG TABLET PO SCH (20:36)
[2023-03-09] MEDS: ATORVASTATIN CALCIUM 20 MG TABLET PO SCH (20:37)
[2023-03-09] MEDS: GABAPENTIN 400 MG CAPSULE PO SCH (20:37)
[2023-03-09 21:32] VITALS: BP 141/78; PULSE 84; RESP 18; TEMP 97.9; O2SAT 98
[2023-03-10] MEDS: TRIHEXYPHENIDYL HCL 5 MG TABLET PO SCH ×2 (08:45→17:01)
[2023-03-10] MEDS: OMEGA-3/DHA/EPA/FISH OIL 1,000 MG CAPSULE PO SCH (08:45)
[2023-03-10] MEDS: DOCUSATE SODIUM 250 MG CAPSULE PO SCH ×2 (08:45→17:02)
[2023-03-10] MEDS: LISINOPRIL 10 MG TABLET PO SCH (08:46)
[2023-03-10] MEDS: FLUoxetine HCL 20 MG CAPSULE PO SCH (08:46)
[2023-03-10] MEDS: AmLODIPine BESYLATE 5 MG TABLET PO SCH (08:46)
[2023-03-10] MEDS: GABAPENTIN 300 MG CAPSULE PO SCH ×3 (08:46→17:01)
[2023-03-10 08:51] VITALS: BP 148/79; PULSE 95; RESP 18; TEMP 97.7; O2SAT 96
[2023-03-10 09:54] VITALS: RESP 18; O2SAT 96
[2023-03-10] MEDS: TraMADol HCL 50 MG TABLET PO PRN (09:54)
[2023-03-10 10:54] VITALS: RESP 17
[2023-03-10] MEDS: GABAPENTIN 400 MG CAPSULE PO SCH (20:30)
[2023-03-10] MEDS: ATORVASTATIN CALCIUM 20 MG TABLET PO SCH (20:31)
[2023-03-10] MEDS: OLANZapine 10 MG RAPDIS TABLET PO SCH (20:31)
[2023-03-10] MEDS: MIRTAZAPINE 15 MG TABLET PO SCH (20:31)
[2023-03-10] MEDS: MELATONIN 5 MG TABLET PO SCH (20:31)
[2023-03-10 22:18] VITALS: BP 140/85; PULSE 89; RESP 18; TEMP 97.8; O2SAT 98
[2023-03-11 09:07] VITALS: BP 157/94; PULSE 97; RESP 18; TEMP 97.9; O2SAT 96
[2023-03-11] MEDS: DOCUSATE SODIUM 250 MG CAPSULE PO SCH ×2 (09:24→16:26)
[2023-03-11] MEDS: OMEGA-3/DHA/EPA/FISH OIL 1,000 MG CAPSULE PO SCH (09:24)
[2023-03-11] MEDS: GABAPENTIN 300 MG CAPSULE PO SCH ×3 (09:25→16:26)
[2023-03-11] MEDS: FLUoxetine HCL 20 MG CAPSULE PO SCH (09:25)
[2023-03-11] MEDS: TRIHEXYPHENIDYL HCL 5 MG TABLET PO SCH ×2 (09:26→16:26)
[2023-03-11] MEDS: AmLODIPine BESYLATE 5 MG TABLET PO SCH (09:26)
[2023-03-11] MEDS: LISINOPRIL 10 MG TABLET PO SCH (09:26)
[2023-03-11 20:11] VITALS: BP 158/95; PULSE 89; RESP 19; TEMP 98.3; O2SAT 96
[2023-03-11] MEDS: GABAPENTIN 400 MG CAPSULE PO SCH (20:38)
[2023-03-11] MEDS: MIRTAZAPINE 15 MG TABLET PO SCH (20:38)
[2023-03-11] MEDS: OLANZapine 10 MG RAPDIS TABLET PO SCH (20:39)
[2023-03-11] MEDS: ATORVASTATIN CALCIUM 20 MG TABLET PO SCH (20:40)
[2023-03-11] MEDS: MELATONIN 5 MG TABLET PO SCH (20:40)
[2023-03-12 08:13] VITALS: BP 136/85; PULSE 66; RESP 18; TEMP 98; O2SAT 97
[2023-03-12 08:30] VITALS: RESP 18
[2023-03-12] MEDS: IBUPROFEN 600 MG TABLET PO PRN (08:30)
[2023-03-12] MEDS: DOCUSATE SODIUM 250 MG CAPSULE PO SCH ×2 (08:38→16:28)
[2023-03-12] MEDS: TRIHEXYPHENIDYL HCL 5 MG TABLET PO SCH ×2 (08:39→16:28)
[2023-03-12] MEDS: LISINOPRIL 10 MG TABLET PO SCH (08:39)
[2023-03-12] MEDS: GABAPENTIN 300 MG CAPSULE PO SCH ×3 (08:39→16:29)
[2023-03-12] MEDS: AmLODIPine BESYLATE 5 MG TABLET PO SCH (08:39)
[2023-03-12] MEDS: FLUoxetine HCL 20 MG CAPSULE PO SCH (08:39)
[2023-03-12] MEDS: OMEGA-3/DHA/EPA/FISH OIL 1,000 MG CAPSULE PO SCH (08:40)
[2023-03-12 09:30] VITALS: RESP 18
[2023-03-12 20:26] VITALS: BP 126/74; PULSE 78; RESP 18; TEMP 97.6; O2SAT 98
[2023-03-12] MEDS: OLANZapine 10 MG RAPDIS TABLET PO SCH (20:30)
[2023-03-12] MEDS: GABAPENTIN 400 MG CAPSULE PO SCH (20:30)
[2023-03-12] MEDS: ATORVASTATIN CALCIUM 20 MG TABLET PO SCH (20:30)
[2023-03-12] MEDS: MELATONIN 5 MG TABLET PO SCH (20:30)
[2023-03-12] MEDS: MIRTAZAPINE 15 MG TABLET PO SCH (20:30)
[2023-03-13] MEDS: TRIHEXYPHENIDYL HCL 5 MG TABLET PO SCH ×2 (08:21→16:48)
[2023-03-13] MEDS: DOCUSATE SODIUM 250 MG CAPSULE PO SCH ×2 (08:21→16:48)
[2023-03-13] MEDS: OMEGA-3/DHA/EPA/FISH OIL 1,000 MG CAPSULE PO SCH (08:22)
[2023-03-13] MEDS: AmLODIPine BESYLATE 5 MG TABLET PO SCH (08:22)
[2023-03-13] MEDS: GABAPENTIN 300 MG CAPSULE PO SCH ×3 (08:22→16:49)
[2023-03-13] MEDS: FLUoxetine HCL 20 MG CAPSULE PO SCH (08:23)
[2023-03-13] MEDS: LISINOPRIL 10 MG TABLET PO SCH (08:24)
[2023-03-13 09:17] VITALS: BP 151/99; PULSE 88; RESP 18; TEMP 97.9; O2SAT 95
[2023-03-13] MEDS: TraMADol HCL 50 MG TABLET PO PRN (12:30)
[2023-03-13] MEDS: IBUPROFEN 600 MG TABLET PO PRN (16:45)
[2023-03-13 20:14] VITALS: BP 126/83; PULSE 84; RESP 19; TEMP 97.9; O2SAT 98
[2023-03-13] MEDS: ATORVASTATIN CALCIUM 20 MG TABLET PO SCH (20:34)
[2023-03-13] MEDS: MELATONIN 5 MG TABLET PO SCH (20:34)
[2023-03-13] MEDS: GABAPENTIN 400 MG CAPSULE PO SCH (20:34)
[2023-03-13] MEDS: OLANZapine 10 MG RAPDIS TABLET PO SCH (20:35)
[2023-03-13] MEDS: MIRTAZAPINE 15 MG TABLET PO SCH (20:35)
[2023-03-14 08:18] VITALS: BP 116/65; PULSE 82; RESP 16; TEMP 97.7; O2SAT 98
[2023-03-14] MEDS: GABAPENTIN 300 MG CAPSULE PO SCH ×3 (09:20→16:19)
[2023-03-14] MEDS: OMEGA-3/DHA/EPA/FISH OIL 1,000 MG CAPSULE PO SCH (09:20)
[2023-03-14] MEDS: TRIHEXYPHENIDYL HCL 5 MG TABLET PO SCH ×2 (09:20→16:19)
[2023-03-14] MEDS: LISINOPRIL 10 MG TABLET PO SCH (09:20)
[2023-03-14] MEDS: DOCUSATE SODIUM 250 MG CAPSULE PO SCH ×2 (09:20→16:19)
[2023-03-14] MEDS: AmLODIPine BESYLATE 5 MG TABLET PO SCH (09:20)
[2023-03-14] MEDS: FLUoxetine HCL 20 MG CAPSULE PO SCH (09:23)
[2023-03-14 09:43] VITALS: RESP 17
[2023-03-14] MEDS: IBUPROFEN 600 MG TABLET PO PRN (09:43)
[2023-03-14 10:43] VITALS: RESP 18
[2023-03-14 20:20] VITALS: BP 142/93; PULSE 77; RESP 17; TEMP 98.1; O2SAT 98
[2023-03-14] MEDS: GABAPENTIN 400 MG CAPSULE PO SCH (20:51)
[2023-03-14] MEDS: MELATONIN 5 MG TABLET PO SCH (20:51)
[2023-03-14] MEDS: MIRTAZAPINE 15 MG TABLET PO SCH (20:51)
[2023-03-14] MEDS: ATORVASTATIN CALCIUM 20 MG TABLET PO SCH (20:51)
[2023-03-14] MEDS: OLANZapine 10 MG RAPDIS TABLET PO SCH (20:52)
[2023-03-15] VITALS (13 sets, daily range): BP systolic 123–149; BP diastolic 58–98; PULSE 76–94; RESP 16–18; TEMP 96.9–98.2; O2SAT 95–98
[2023-03-15] MEDS: IBUPROFEN 600 MG TABLET PO PRN ×2 (08:15→22:13)
[2023-03-15] MEDS: TRIHEXYPHENIDYL HCL 5 MG TABLET PO SCH ×2 (08:15→16:13)
[2023-03-15] MEDS: OMEGA-3/DHA/EPA/FISH OIL 1,000 MG CAPSULE PO SCH (08:15)
[2023-03-15] MEDS: GABAPENTIN 300 MG CAPSULE PO SCH ×3 (08:15→16:14)
[2023-03-15] MEDS: LISINOPRIL 10 MG TABLET PO SCH (08:15)
[2023-03-15] MEDS: AmLODIPine BESYLATE 5 MG TABLET PO SCH (08:15)
[2023-03-15] MEDS: DOCUSATE SODIUM 250 MG CAPSULE PO SCH ×2 (08:15→16:13)
[2023-03-15] MEDS: FLUoxetine HCL 20 MG CAPSULE PO SCH (08:15)
[2023-03-15] MEDS: ACETAMINOPHEN 325 MG TABLET PO PRN (16:22)
[2023-03-15] MEDS: MIRTAZAPINE 15 MG TABLET PO SCH (20:10)
[2023-03-15] MEDS: ATORVASTATIN CALCIUM 20 MG TABLET PO SCH (20:10)
[2023-03-15] MEDS: GABAPENTIN 400 MG CAPSULE PO SCH (20:10)
[2023-03-15] MEDS: OLANZapine 10 MG RAPDIS TABLET PO SCH (20:12)
[2023-03-15] MEDS: MELATONIN 5 MG TABLET PO SCH (20:12)
[2023-03-16] VITALS (8 sets, daily range): BP systolic 132–147; BP diastolic 78–88; PULSE 77–98; RESP 16–20; TEMP 97.8–98.1; O2SAT 96
[2023-03-16] MEDS: DOCUSATE SODIUM 250 MG CAPSULE PO SCH ×2 (08:04→16:27)
[2023-03-16] MEDS: GABAPENTIN 300 MG CAPSULE PO SCH ×3 (08:04→16:27)
[2023-03-16] MEDS: LISINOPRIL 10 MG TABLET PO SCH (08:05)
[2023-03-16] MEDS: FLUoxetine HCL 20 MG CAPSULE PO SCH (08:05)
[2023-03-16] MEDS: TRIHEXYPHENIDYL HCL 2 MG TABLET PO SCH ×2 (08:05→16:28)
[2023-03-16] MEDS: OMEGA-3/DHA/EPA/FISH OIL 1,000 MG CAPSULE PO SCH (08:05)
[2023-03-16] MEDS: AmLODIPine BESYLATE 5 MG TABLET PO SCH (08:05)
[2023-03-16] MEDS: TraMADol HCL 50 MG TABLET PO PRN (08:14)
[2023-03-16] MEDS: MIRTAZAPINE 15 MG TABLET PO SCH (20:08)
[2023-03-16] MEDS: ATORVASTATIN CALCIUM 20 MG TABLET PO SCH (20:09)
[2023-03-16] MEDS: GABAPENTIN 400 MG CAPSULE PO SCH (20:09)
[2023-03-16] MEDS: MELATONIN 5 MG TABLET PO SCH (20:09)
[2023-03-16] MEDS: IBUPROFEN 600 MG TABLET PO PRN (20:09)
[2023-03-16] MEDS: OLANZapine 10 MG RAPDIS TABLET PO SCH (20:09)
[2023-03-17 08:10] VITALS: BP 150/90; PULSE 78; RESP 17; TEMP 97.8
[2023-03-17] MEDS: AmLODIPine BESYLATE 5 MG TABLET PO SCH (08:10)
[2023-03-17] MEDS: FLUoxetine HCL 20 MG CAPSULE PO SCH (08:11)
[2023-03-17] MEDS: DOCUSATE SODIUM 250 MG CAPSULE PO SCH ×2 (08:12→16:11)
[2023-03-17] MEDS: LISINOPRIL 10 MG TABLET PO SCH (08:12)
[2023-03-17] MEDS: OMEGA-3/DHA/EPA/FISH OIL 1,000 MG CAPSULE PO SCH (08:12)
[2023-03-17] MEDS: GABAPENTIN 300 MG CAPSULE PO SCH ×3 (08:12→16:11)
[2023-03-17] MEDS: TRIHEXYPHENIDYL HCL 2 MG TABLET PO SCH ×2 (08:12→16:11)
[2023-03-17 08:13] VITALS: RESP 17
[2023-03-17 12:34] VITALS: RESP 17
[2023-03-17] MEDS: IBUPROFEN 600 MG TABLET PO PRN (12:34)
[2023-03-17 13:34] VITALS: RESP 16
[2023-03-17] MEDS: OLANZapine 10 MG RAPDIS TABLET PO SCH (20:31)
[2023-03-17] MEDS: MIRTAZAPINE 15 MG TABLET PO SCH (20:31)
[2023-03-17] MEDS: GABAPENTIN 400 MG CAPSULE PO SCH (20:31)
[2023-03-17] MEDS: ATORVASTATIN CALCIUM 20 MG TABLET PO SCH (20:31)
[2023-03-17] MEDS: MELATONIN 5 MG TABLET PO SCH (20:31)
[2023-03-17 23:30] VITALS: BP 124/78; PULSE 81; RESP 17; TEMP 97.7
[2023-03-18 08:15] VITALS: BP 137/80; PULSE 88; RESP 18; TEMP 98.1; O2SAT 98
[2023-03-18] MEDS: OMEGA-3/DHA/EPA/FISH OIL 1,000 MG CAPSULE PO SCH (08:23)
[2023-03-18] MEDS: TRIHEXYPHENIDYL HCL 2 MG TABLET PO SCH ×2 (08:23→16:29)
[2023-03-18] MEDS: DOCUSATE SODIUM 250 MG CAPSULE PO SCH ×2 (08:23→16:30)
[2023-03-18] MEDS: GABAPENTIN 300 MG CAPSULE PO SCH ×3 (08:23→16:30)
[2023-03-18] MEDS: LISINOPRIL 10 MG TABLET PO SCH (08:23)
[2023-03-18] MEDS: FLUoxetine HCL 20 MG CAPSULE PO SCH (08:24)
[2023-03-18] MEDS: AmLODIPine BESYLATE 5 MG TABLET PO SCH (08:24)
[2023-03-18] MEDS: IBUPROFEN 600 MG TABLET PO PRN (16:30)
[2023-03-18 16:34] VITALS: BP 140/87; PULSE 85; RESP 18; TEMP 98.1; O2SAT 99
[2023-03-18] MEDS: ATORVASTATIN CALCIUM 20 MG TABLET PO SCH (20:32)
[2023-03-18] MEDS: MIRTAZAPINE 15 MG TABLET PO SCH (20:32)
[2023-03-18] MEDS: MELATONIN 5 MG TABLET PO SCH (20:32)
[2023-03-18] MEDS: OLANZapine 10 MG RAPDIS TABLET PO SCH (20:33)
[2023-03-18] MEDS: GABAPENTIN 400 MG CAPSULE PO SCH (20:33)
[2023-03-18 21:16] VITALS: BP 141/83; PULSE 96; RESP 18; TEMP 98; O2SAT 98
[2023-03-19] MEDS: DOCUSATE SODIUM 250 MG CAPSULE PO SCH ×2 (08:15→16:39)
[2023-03-19] MEDS: AmLODIPine BESYLATE 5 MG TABLET PO SCH (08:16)
[2023-03-19] MEDS: FLUoxetine HCL 20 MG CAPSULE PO SCH (08:16)
[2023-03-19] MEDS: OMEGA-3/DHA/EPA/FISH OIL 1,000 MG CAPSULE PO SCH (08:16)
[2023-03-19] MEDS: TRIHEXYPHENIDYL HCL 2 MG TABLET PO SCH ×3 (08:16→16:39)
[2023-03-19] MEDS: GABAPENTIN 300 MG CAPSULE PO SCH ×3 (08:16→16:40)
[2023-03-19] MEDS: LISINOPRIL 10 MG TABLET PO SCH (08:16)
[2023-03-19 08:25] VITALS: RESP 18
[2023-03-19] MEDS: IBUPROFEN 600 MG TABLET PO PRN (08:25)
[2023-03-19 08:37] VITALS: BP 141/77; PULSE 78; RESP 17; TEMP 97.7; O2SAT 97
[2023-03-19 09:25] VITALS: RESP 18
[2023-03-19] MEDS: ACETAMINOPHEN 325 MG TABLET PO PRN (17:46)
[2023-03-19 17:47] VITALS: RESP 18
[2023-03-19 18:46] VITALS: RESP 18
[2023-03-19 20:29] VITALS: BP 143/86; PULSE 100; RESP 20; TEMP 97.7; O2SAT 100
[2023-03-19] MEDS: MIRTAZAPINE 15 MG TABLET PO SCH (20:38)
[2023-03-19] MEDS: GABAPENTIN 400 MG CAPSULE PO SCH (20:38)
[2023-03-19] MEDS: MELATONIN 5 MG TABLET PO SCH (20:38)
[2023-03-19] MEDS: ATORVASTATIN CALCIUM 20 MG TABLET PO SCH (20:38)
[2023-03-19] MEDS: OLANZapine 10 MG RAPDIS TABLET PO SCH (20:38)
[2023-03-20 08:21] VITALS: BP 130/72; PULSE 82; RESP 20; TEMP 97.6; O2SAT 96
[2023-03-20] MEDS: OMEGA-3/DHA/EPA/FISH OIL 1,000 MG CAPSULE PO SCH (08:30)
[2023-03-20] MEDS: TRIHEXYPHENIDYL HCL 2 MG TABLET PO SCH ×3 (08:30→16:46)
[2023-03-20] MEDS: DOCUSATE SODIUM 250 MG CAPSULE PO SCH ×2 (08:30→16:46)
[2023-03-20] MEDS: GABAPENTIN 300 MG CAPSULE PO SCH ×3 (08:31→16:47)
[2023-03-20] MEDS: LISINOPRIL 10 MG TABLET PO SCH (08:31)
[2023-03-20] MEDS: AmLODIPine BESYLATE 5 MG TABLET PO SCH (08:31)
[2023-03-20] MEDS: FLUoxetine HCL 20 MG CAPSULE PO SCH (08:31)
[2023-03-20 09:23] VITALS: RESP 20; O2SAT 96
[2023-03-20] MEDS: TraMADol HCL 50 MG TABLET PO PRN (09:23)
[2023-03-20 10:23] VITALS: RESP 19; O2SAT 96
[2023-03-20 16:57] VITALS: RESP 18
[2023-03-20] MEDS: ACETAMINOPHEN 325 MG TABLET PO PRN (16:57)
[2023-03-20 17:57] VITALS: RESP 18
[2023-03-20] MEDS: MELATONIN 5 MG TABLET PO SCH (20:45)
[2023-03-20] MEDS: MIRTAZAPINE 15 MG TABLET PO SCH (20:45)
[2023-03-20] MEDS: ATORVASTATIN CALCIUM 20 MG TABLET PO SCH (20:45)
[2023-03-20] MEDS: GABAPENTIN 400 MG CAPSULE PO SCH (20:45)
[2023-03-20] MEDS: OLANZapine 10 MG RAPDIS TABLET PO SCH (20:45)
[2023-03-20 23:22] VITALS: BP 123/69; PULSE 80; RESP 18; TEMP 97.9; O2SAT 98
[2023-03-21 08:09] VITALS: BP 146/95; PULSE 87; RESP 19; TEMP 98.1; O2SAT 96
[2023-03-21] MEDS: TRIHEXYPHENIDYL HCL 2 MG TABLET PO SCH ×3 (08:42→16:37)
[2023-03-21] MEDS: GABAPENTIN 300 MG CAPSULE PO SCH ×3 (08:43→16:37)
[2023-03-21] MEDS: LISINOPRIL 10 MG TABLET PO SCH (08:43)
[2023-03-21] MEDS: OMEGA-3/DHA/EPA/FISH OIL 1,000 MG CAPSULE PO SCH (08:43)
[2023-03-21] MEDS: AmLODIPine BESYLATE 5 MG TABLET PO SCH (08:43)
[2023-03-21] MEDS: FLUoxetine HCL 20 MG CAPSULE PO SCH (08:43)
[2023-03-21] MEDS: DOCUSATE SODIUM 250 MG CAPSULE PO SCH ×2 (08:43→16:37)
[2023-03-21 08:50] VITALS: RESP 19; O2SAT 96
[2023-03-21] MEDS: TraMADol HCL 50 MG TABLET PO PRN (08:50)
[2023-03-21 09:50] VITALS: RESP 18; O2SAT 96
[2023-03-21] MEDS: OLANZapine 10 MG RAPDIS TABLET PO SCH (20:01)
[2023-03-21] MEDS: MIRTAZAPINE 15 MG TABLET PO SCH (20:01)
[2023-03-21] MEDS: GABAPENTIN 400 MG CAPSULE PO SCH (20:01)
[2023-03-21] MEDS: ATORVASTATIN CALCIUM 20 MG TABLET PO SCH (20:01)
[2023-03-21] MEDS: MELATONIN 5 MG TABLET PO SCH (20:01)
[2023-03-21 20:17] VITALS: BP 134/70; PULSE 66; RESP 18; TEMP 97.6; O2SAT 98
[2023-03-21 22:28] VITALS: BP 130/75; PULSE 76; RESP 19; TEMP 98.2; O2SAT 98
[2023-03-21] MEDS: IBUPROFEN 600 MG TABLET PO PRN (22:28)
[2023-03-22] MEDS: TRIHEXYPHENIDYL HCL 2 MG TABLET PO SCH ×3 (08:06→16:12)
[2023-03-22 08:07] VITALS: BP 140/94; PULSE 79; RESP 18; TEMP 98; O2SAT 97
[2023-03-22] MEDS: OMEGA-3/DHA/EPA/FISH OIL 1,000 MG CAPSULE PO SCH (08:07)
[2023-03-22] MEDS: AmLODIPine BESYLATE 5 MG TABLET PO SCH (08:07)
[2023-03-22] MEDS: FLUoxetine HCL 20 MG CAPSULE PO SCH (08:07)
[2023-03-22] MEDS: LISINOPRIL 10 MG TABLET PO SCH (08:07)
[2023-03-22] MEDS: GABAPENTIN 300 MG CAPSULE PO SCH ×3 (08:07→16:12)
[2023-03-22] MEDS: TraMADol HCL 50 MG TABLET PO PRN (09:02)
[2023-03-22] MEDS: DOCUSATE SODIUM 250 MG CAPSULE PO SCH ×2 (09:02→16:12)
[2023-03-22 20:05] VITALS: BP 144/85; PULSE 94; RESP 18; TEMP 97.6; O2SAT 98
[2023-03-22] MEDS: ATORVASTATIN CALCIUM 20 MG TABLET PO SCH (20:51)
[2023-03-22] MEDS: MIRTAZAPINE 15 MG TABLET PO SCH (20:52)
[2023-03-22] MEDS: MELATONIN 5 MG TABLET PO SCH (20:52)
[2023-03-22] MEDS: GABAPENTIN 400 MG CAPSULE PO SCH (20:52)
[2023-03-22] MEDS: OLANZapine 10 MG RAPDIS TABLET PO SCH (20:52)
[2023-03-23] MEDS: DOCUSATE SODIUM 250 MG CAPSULE PO SCH ×2 (08:26→16:33)
[2023-03-23] MEDS: TRIHEXYPHENIDYL HCL 2 MG TABLET PO SCH ×3 (08:26→16:33)
[2023-03-23] MEDS: AmLODIPine BESYLATE 5 MG TABLET PO SCH (08:27)
[2023-03-23] MEDS: GABAPENTIN 300 MG CAPSULE PO SCH ×3 (08:27→16:33)
[2023-03-23] MEDS: LISINOPRIL 10 MG TABLET PO SCH (08:27)
[2023-03-23] MEDS: OMEGA-3/DHA/EPA/FISH OIL 1,000 MG CAPSULE PO SCH (08:27)
[2023-03-23] MEDS: FLUoxetine HCL 20 MG CAPSULE PO SCH (08:27)
[2023-03-23 08:58] VITALS: BP 140/73; PULSE 79; RESP 18; TEMP 97.4; O2SAT 98
[2023-03-23 09:20] VITALS: RESP 18; O2SAT 98
[2023-03-23] MEDS: TraMADol HCL 50 MG TABLET PO PRN (09:20)
[2023-03-23 16:12] VITALS: BP 136/83; PULSE 81; RESP 18; TEMP 98.2; O2SAT 97
[2023-03-23] MEDS: IBUPROFEN 600 MG TABLET PO PRN (16:20)
[2023-03-23 17:20] VITALS: RESP 18
[2023-03-23 20:02] VITALS: BP_SYST 130; BP_SYST 139; BP_DIAS 77; BP_DIAS 80; PULSE 78; RESP 17; RESP 18; TEMP 97.5; TEMP 97.8; O2SAT 98
[2023-03-23] MEDS: ATORVASTATIN CALCIUM 20 MG TABLET PO SCH (20:32)
[2023-03-23] MEDS: OLANZapine 10 MG RAPDIS TABLET PO SCH (20:32)
[2023-03-23] MEDS: GABAPENTIN 400 MG CAPSULE PO SCH (20:32)
[2023-03-23] MEDS: MIRTAZAPINE 15 MG TABLET PO SCH (20:32)
[2023-03-23] MEDS: MELATONIN 5 MG TABLET PO SCH (20:32)
[2023-03-24 08:30] VITALS: BP 133/88; PULSE 89; RESP 18; TEMP 98; O2SAT 98
[2023-03-24] MEDS: TRIHEXYPHENIDYL HCL 2 MG TABLET PO SCH ×3 (08:36→16:36)
[2023-03-24] MEDS: OMEGA-3/DHA/EPA/FISH OIL 1,000 MG CAPSULE PO SCH (08:36)
[2023-03-24] MEDS: DOCUSATE SODIUM 250 MG CAPSULE PO SCH ×2 (08:36→16:36)
[2023-03-24] MEDS: AmLODIPine BESYLATE 5 MG TABLET PO SCH (08:37)
[2023-03-24] MEDS: GABAPENTIN 300 MG CAPSULE PO SCH ×3 (08:37→16:36)
[2023-03-24] MEDS: LISINOPRIL 10 MG TABLET PO SCH (08:37)
[2023-03-24] MEDS: FLUoxetine HCL 20 MG CAPSULE PO SCH (08:37)
[2023-03-24] MEDS: TraMADol HCL 50 MG TABLET PO PRN (09:57)
[2023-03-24 20:09] VITALS: BP 129/84; PULSE 92; RESP 18; TEMP 96.8; O2SAT 96
[2023-03-24] MEDS: OLANZapine 10 MG RAPDIS TABLET PO SCH ×2 (21:00→23:05)
[2023-03-24] MEDS: GABAPENTIN 400 MG CAPSULE PO SCH ×2 (21:00→23:04)
[2023-03-24] MEDS: MELATONIN 5 MG TABLET PO SCH ×2 (21:00→23:04)
[2023-03-24] MEDS: MIRTAZAPINE 15 MG TABLET PO SCH ×2 (21:00→23:05)
[2023-03-24] MEDS: ATORVASTATIN CALCIUM 20 MG TABLET PO SCH ×2 (21:00→23:04)
[2023-03-25] MEDS: OLANZapine 10 MG RAPDIS TABLET PO SCH ×4 (01:26→23:38)
[2023-03-25] MEDS: MELATONIN 5 MG TABLET PO SCH ×4 (01:26→23:41)
[2023-03-25 08:39] VITALS: BP 140/74; PULSE 86; RESP 17; TEMP 98; O2SAT 99
[2023-03-25] MEDS: TRIHEXYPHENIDYL HCL 2 MG TABLET PO SCH ×3 (08:52→16:20)
[2023-03-25] MEDS: DOCUSATE SODIUM 250 MG CAPSULE PO SCH ×2 (08:52→16:21)
[2023-03-25] MEDS: LISINOPRIL 10 MG TABLET PO SCH (08:53)
[2023-03-25] MEDS: GABAPENTIN 300 MG CAPSULE PO SCH ×3 (08:53→16:20)
[2023-03-25] MEDS: AmLODIPine BESYLATE 5 MG TABLET PO SCH (08:53)
[2023-03-25] MEDS: OMEGA-3/DHA/EPA/FISH OIL 1,000 MG CAPSULE PO SCH (08:53)
[2023-03-25] MEDS: FLUoxetine HCL 20 MG CAPSULE PO SCH (08:53)
[2023-03-25 20:12] VITALS: BP 136/85; PULSE 89; RESP 18; TEMP 97.8; O2SAT 96
[2023-03-25] MEDS: GABAPENTIN 400 MG CAPSULE PO SCH ×2 (21:00→23:41)
[2023-03-25] MEDS: MIRTAZAPINE 15 MG TABLET PO SCH ×2 (21:00→23:41)
[2023-03-25] MEDS: ATORVASTATIN CALCIUM 20 MG TABLET PO SCH ×2 (21:00→23:40)
[2023-03-26 08:09] VITALS: BP 140/97; PULSE 88; RESP 19; TEMP 98; O2SAT 95
[2023-03-26] MEDS: FLUoxetine HCL 20 MG CAPSULE PO SCH (08:45)
[2023-03-26] MEDS: GABAPENTIN 300 MG CAPSULE PO SCH ×3 (08:45→16:27)
[2023-03-26] MEDS: TRIHEXYPHENIDYL HCL 2 MG TABLET PO SCH ×3 (08:45→16:27)
[2023-03-26] MEDS: OMEGA-3/DHA/EPA/FISH OIL 1,000 MG CAPSULE PO SCH (08:45)
[2023-03-26] MEDS: LISINOPRIL 10 MG TABLET PO SCH (08:45)
[2023-03-26] MEDS: AmLODIPine BESYLATE 5 MG TABLET PO SCH (08:46)
[2023-03-26] MEDS: DOCUSATE SODIUM 250 MG CAPSULE PO SCH ×2 (08:46→16:27)
[2023-03-26 09:54] VITALS: RESP 19; O2SAT 95
[2023-03-26] MEDS: IBUPROFEN 600 MG TABLET PO PRN (09:54)
[2023-03-26 10:54] VITALS: RESP 18; O2SAT 95
[2023-03-26] MEDS: OLANZapine 10 MG RAPDIS TABLET PO SCH (20:31)
[2023-03-26] MEDS: ATORVASTATIN CALCIUM 20 MG TABLET PO SCH (20:32)
[2023-03-26] MEDS: MIRTAZAPINE 15 MG TABLET PO SCH (20:32)
[2023-03-26] MEDS: MELATONIN 5 MG TABLET PO SCH (20:32)
[2023-03-26] MEDS: GABAPENTIN 400 MG CAPSULE PO SCH (20:32)
[2023-03-26 20:37] VITALS: BP 161/93; PULSE 86; RESP 17; TEMP 98; O2SAT 95
[2023-03-27 08:03] VITALS: BP 140/93; PULSE 62; RESP 19; TEMP 98.1; O2SAT 97
[2023-03-27] MEDS: TRIHEXYPHENIDYL HCL 2 MG TABLET PO SCH ×3 (08:35→16:12)
[2023-03-27] MEDS: OMEGA-3/DHA/EPA/FISH OIL 1,000 MG CAPSULE PO SCH (08:36)
[2023-03-27] MEDS: FLUoxetine HCL 20 MG CAPSULE PO SCH (08:36)
[2023-03-27] MEDS: LISINOPRIL 10 MG TABLET PO SCH (08:36)
[2023-03-27] MEDS: GABAPENTIN 300 MG CAPSULE PO SCH ×3 (08:36→16:14)
[2023-03-27] MEDS: DOCUSATE SODIUM 250 MG CAPSULE PO SCH ×2 (08:36→16:12)
[2023-03-27] MEDS: AmLODIPine BESYLATE 5 MG TABLET PO SCH (08:37)
[2023-03-27 10:17] VITALS: RESP 19; O2SAT 97
[2023-03-27] MEDS: TraMADol HCL 50 MG TABLET PO PRN (10:17)
[2023-03-27 11:17] VITALS: RESP 18; O2SAT 97
[2023-03-27 20:20] VITALS: BP 141/70; PULSE 79; RESP 18; O2SAT 95
[2023-03-27] MEDS: OLANZapine 10 MG RAPDIS TABLET PO SCH (20:41)
[2023-03-27] MEDS: GABAPENTIN 400 MG CAPSULE PO SCH (20:41)
[2023-03-27] MEDS: MELATONIN 5 MG TABLET PO SCH (20:42)
[2023-03-27] MEDS: MIRTAZAPINE 15 MG TABLET PO SCH (20:42)
[2023-03-27] MEDS: ATORVASTATIN CALCIUM 20 MG TABLET PO SCH (20:42)
[2023-03-28] MEDS: TRIHEXYPHENIDYL HCL 2 MG TABLET PO SCH ×3 (08:24→16:25)
[2023-03-28] MEDS: OMEGA-3/DHA/EPA/FISH OIL 1,000 MG CAPSULE PO SCH (08:24)
[2023-03-28] MEDS: DOCUSATE SODIUM 250 MG CAPSULE PO SCH ×2 (08:24→16:25)
[2023-03-28] MEDS: FLUoxetine HCL 20 MG CAPSULE PO SCH (08:25)
[2023-03-28] MEDS: LISINOPRIL 10 MG TABLET PO SCH (08:25)
[2023-03-28] MEDS: AmLODIPine BESYLATE 5 MG TABLET PO SCH (08:25)
[2023-03-28] MEDS: GABAPENTIN 300 MG CAPSULE PO SCH ×3 (08:25→16:25)
[2023-03-28 09:05] VITALS: BP 130/80; PULSE 83; RESP 18; TEMP 97.5; O2SAT 96
[2023-03-28 09:14] VITALS: RESP 18; O2SAT 96
[2023-03-28] MEDS: IBUPROFEN 600 MG TABLET PO PRN ×2 (09:14→17:55)
[2023-03-28 10:14] VITALS: RESP 18; O2SAT 96
[2023-03-28 17:55] VITALS: RESP 18; O2SAT 96
[2023-03-28 18:55] VITALS: RESP 18; O2SAT 96
[2023-03-28 20:10] VITALS: BP 141/69; PULSE 73; RESP 18; TEMP 98.3; O2SAT 97
[2023-03-28] MEDS: GABAPENTIN 400 MG CAPSULE PO SCH (20:20)
[2023-03-28] MEDS: MIRTAZAPINE 15 MG TABLET PO SCH (20:20)
[2023-03-28] MEDS: ATORVASTATIN CALCIUM 20 MG TABLET PO SCH (20:21)
[2023-03-28] MEDS: OLANZapine 10 MG RAPDIS TABLET PO SCH (20:21)
[2023-03-28] MEDS: MELATONIN 5 MG TABLET PO SCH (20:25)
[2023-03-29] MEDS: FLUoxetine HCL 20 MG CAPSULE PO SCH (08:39)
[2023-03-29] MEDS: TRIHEXYPHENIDYL HCL 2 MG TABLET PO SCH ×3 (08:39→16:10)
[2023-03-29] MEDS: AmLODIPine BESYLATE 5 MG TABLET PO SCH (08:39)
[2023-03-29] MEDS: GABAPENTIN 300 MG CAPSULE PO SCH ×3 (08:39→16:10)
[2023-03-29] MEDS: LISINOPRIL 10 MG TABLET PO SCH (08:39)
[2023-03-29] MEDS: OMEGA-3/DHA/EPA/FISH OIL 1,000 MG CAPSULE PO SCH (08:39)
[2023-03-29] MEDS: DOCUSATE SODIUM 250 MG CAPSULE PO SCH ×2 (08:39→16:10)
[2023-03-29 08:43] VITALS: BP 148/66; PULSE 72; RESP 17; TEMP 97.6; O2SAT 98
[2023-03-29 09:48] VITALS: RESP 17
[2023-03-29] MEDS: IBUPROFEN 600 MG TABLET PO PRN (09:48)
[2023-03-29 10:48] VITALS: RESP 16
[2023-03-29] MEDS: MIRTAZAPINE 15 MG TABLET PO SCH (20:03)
[2023-03-29] MEDS: OLANZapine 10 MG RAPDIS TABLET PO SCH (20:03)
[2023-03-29] MEDS: ATORVASTATIN CALCIUM 20 MG TABLET PO SCH (20:03)
[2023-03-29] MEDS: GABAPENTIN 400 MG CAPSULE PO SCH (20:03)
[2023-03-29] MEDS: MELATONIN 5 MG TABLET PO SCH (20:04)
[2023-03-29 20:38] VITALS: BP 139/85; PULSE 91; RESP 18; TEMP 97.8; O2SAT 95
[2023-03-30 09:11] VITALS: BP 129/92; PULSE 83; RESP 18; TEMP 98; O2SAT 98
[2023-03-30] MEDS: IBUPROFEN 600 MG TABLET PO PRN (09:12)
[2023-03-30] MEDS: GABAPENTIN 300 MG CAPSULE PO SCH ×3 (09:13→16:03)
[2023-03-30] MEDS: FLUoxetine HCL 20 MG CAPSULE PO SCH (09:13)
[2023-03-30] MEDS: OMEGA-3/DHA/EPA/FISH OIL 1,000 MG CAPSULE PO SCH (09:13)
[2023-03-30] MEDS: LISINOPRIL 10 MG TABLET PO SCH (09:13)
[2023-03-30] MEDS: AmLODIPine BESYLATE 5 MG TABLET PO SCH (09:13)
[2023-03-30] MEDS: DOCUSATE SODIUM 250 MG CAPSULE PO SCH ×2 (09:13→16:03)
[2023-03-30] MEDS: TRIHEXYPHENIDYL HCL 2 MG TABLET PO SCH ×3 (09:13→16:03)
[2023-03-30 10:12] VITALS: RESP 18
[2023-03-30 20:11] VITALS: BP 104/62; PULSE 80; RESP 18; TEMP 97.8
[2023-03-30] MEDS: GABAPENTIN 400 MG CAPSULE PO SCH (20:47)
[2023-03-30] MEDS: MIRTAZAPINE 15 MG TABLET PO SCH (20:47)
[2023-03-30] MEDS: ATORVASTATIN CALCIUM 20 MG TABLET PO SCH (20:47)
[2023-03-30] MEDS: OLANZapine 10 MG RAPDIS TABLET PO SCH (20:47)
[2023-03-30] MEDS: MELATONIN 5 MG TABLET PO SCH (20:49)
[2023-03-31] VITALS (7 sets, daily range): BP systolic 132–149; BP diastolic 78–89; PULSE 85–89; RESP 17–18; TEMP 97.5–97.9; O2SAT 96–97
[2023-03-31] MEDS: IBUPROFEN 600 MG TABLET PO PRN ×2 (05:36→16:18)
[2023-03-31] MEDS: AmLODIPine BESYLATE 5 MG TABLET PO SCH (08:01)
[2023-03-31] MEDS: OMEGA-3/DHA/EPA/FISH OIL 1,000 MG CAPSULE PO SCH (08:02)
[2023-03-31] MEDS: GABAPENTIN 300 MG CAPSULE PO SCH ×3 (08:02→16:14)
[2023-03-31] MEDS: TraMADol HCL 50 MG TABLET PO PRN (08:02)
[2023-03-31] MEDS: LISINOPRIL 10 MG TABLET PO SCH (08:02)
[2023-03-31] MEDS: FLUoxetine HCL 20 MG CAPSULE PO SCH (08:02)
[2023-03-31] MEDS: TRIHEXYPHENIDYL HCL 2 MG TABLET PO SCH ×3 (08:02→16:14)
[2023-03-31] MEDS: DOCUSATE SODIUM 250 MG CAPSULE PO SCH ×2 (08:02→16:14)
[2023-03-31] MEDS: MIRTAZAPINE 15 MG TABLET PO SCH (20:06)
[2023-03-31] MEDS: GABAPENTIN 400 MG CAPSULE PO SCH (20:06)
[2023-03-31] MEDS: ATORVASTATIN CALCIUM 20 MG TABLET PO SCH (20:06)
[2023-03-31] MEDS: OLANZapine 10 MG RAPDIS TABLET PO SCH (20:07)
[2023-03-31] MEDS: MELATONIN 5 MG TABLET PO SCH (20:07)
[2023-04-01 08:28] VITALS: BP 140/79; PULSE 84; RESP 18; TEMP 97.8; O2SAT 98
[2023-04-01] MEDS: FLUoxetine HCL 20 MG CAPSULE PO SCH (08:30)
[2023-04-01] MEDS: DOCUSATE SODIUM 250 MG CAPSULE PO SCH ×2 (08:30→16:06)
[2023-04-01] MEDS: GABAPENTIN 300 MG CAPSULE PO SCH ×3 (08:30→16:06)
[2023-04-01] MEDS: OMEGA-3/DHA/EPA/FISH OIL 1,000 MG CAPSULE PO SCH (08:30)
[2023-04-01] MEDS: LISINOPRIL 10 MG TABLET PO SCH (08:30)
[2023-04-01] MEDS: AmLODIPine BESYLATE 5 MG TABLET PO SCH (08:30)
[2023-04-01] MEDS: TRIHEXYPHENIDYL HCL 2 MG TABLET PO SCH ×3 (08:30→16:05)
[2023-04-01 09:35] VITALS: RESP 18
[2023-04-01] MEDS: IBUPROFEN 600 MG TABLET PO PRN (09:35)
[2023-04-01 10:35] VITALS: RESP 18
[2023-04-01 20:11] VITALS: BP 145/90; PULSE 89; RESP 18; TEMP 97.6; O2SAT 94
[2023-04-01] MEDS: ATORVASTATIN CALCIUM 20 MG TABLET PO SCH (20:31)
[2023-04-01] MEDS: GABAPENTIN 400 MG CAPSULE PO SCH (20:31)
[2023-04-01] MEDS: MIRTAZAPINE 15 MG TABLET PO SCH (20:31)
[2023-04-01] MEDS: OLANZapine 10 MG RAPDIS TABLET PO SCH (20:31)
[2023-04-01] MEDS: MELATONIN 5 MG TABLET PO SCH (20:32)
[2023-04-02 08:11] VITALS: BP 132/89; PULSE 85; RESP 19; TEMP 98.2; O2SAT 97
[2023-04-02] MEDS: LISINOPRIL 10 MG TABLET PO SCH (08:16)
[2023-04-02] MEDS: FLUoxetine HCL 20 MG CAPSULE PO SCH (08:16)
[2023-04-02] MEDS: GABAPENTIN 300 MG CAPSULE PO SCH ×3 (08:16→16:36)
[2023-04-02] MEDS: AmLODIPine BESYLATE 5 MG TABLET PO SCH (08:16)
[2023-04-02] MEDS: OMEGA-3/DHA/EPA/FISH OIL 1,000 MG CAPSULE PO SCH (08:16)
[2023-04-02] MEDS: DOCUSATE SODIUM 250 MG CAPSULE PO SCH ×2 (08:16→16:36)
[2023-04-02] MEDS: TRIHEXYPHENIDYL HCL 2 MG TABLET PO SCH ×3 (08:16→16:36)
[2023-04-02 08:18] VITALS: BP 132/89; PULSE 85; RESP 19; TEMP 98.2; O2SAT 97
[2023-04-02 09:17] VITALS: RESP 18
[2023-04-02] MEDS: IBUPROFEN 600 MG TABLET PO PRN (09:17)
[2023-04-02 10:16] VITALS: RESP 18
[2023-04-02] MEDS: MELATONIN 5 MG TABLET PO SCH (20:32)
[2023-04-02] MEDS: ATORVASTATIN CALCIUM 20 MG TABLET PO SCH (20:32)
[2023-04-02] MEDS: MIRTAZAPINE 15 MG TABLET PO SCH (20:32)
[2023-04-02] MEDS: GABAPENTIN 400 MG CAPSULE PO SCH (20:32)
[2023-04-02] MEDS: OLANZapine 10 MG RAPDIS TABLET PO SCH (20:33)
[2023-04-02 20:37] VITALS: BP 134/92; PULSE 87; RESP 18; TEMP 97.9; O2SAT 95
[2023-04-03] MEDS: LISINOPRIL 10 MG TABLET PO SCH (09:17)
[2023-04-03] MEDS: GABAPENTIN 300 MG CAPSULE PO SCH ×3 (09:17→16:29)
[2023-04-03] MEDS: DOCUSATE SODIUM 250 MG CAPSULE PO SCH ×2 (09:17→16:29)
[2023-04-03] MEDS: FLUoxetine HCL 20 MG CAPSULE PO SCH (09:17)
[2023-04-03] MEDS: TRIHEXYPHENIDYL HCL 2 MG TABLET PO SCH ×3 (09:17→16:29)
[2023-04-03] MEDS: OMEGA-3/DHA/EPA/FISH OIL 1,000 MG CAPSULE PO SCH (09:17)
[2023-04-03] MEDS: AmLODIPine BESYLATE 5 MG TABLET PO SCH (09:18)
[2023-04-03 09:23] VITALS: BP 149/92; PULSE 88; RESP 18; TEMP 97.8; O2SAT 96
[2023-04-03 10:16] VITALS: RESP 18; O2SAT 96
[2023-04-03] MEDS: IBUPROFEN 600 MG TABLET PO PRN (10:16)
[2023-04-03 11:16] VITALS: RESP 18
[2023-04-03 20:26] VITALS: BP 137/74; PULSE 77; RESP 18; TEMP 98.2; O2SAT 94
[2023-04-03] MEDS: MELATONIN 5 MG TABLET PO SCH (20:33)
[2023-04-03] MEDS: OLANZapine 10 MG RAPDIS TABLET PO SCH (20:33)
[2023-04-03] MEDS: GABAPENTIN 400 MG CAPSULE PO SCH (20:33)
[2023-04-03] MEDS: MIRTAZAPINE 15 MG TABLET PO SCH (20:33)
[2023-04-03] MEDS: ATORVASTATIN CALCIUM 20 MG TABLET PO SCH (20:33)
[2023-04-04 08:06] VITALS: BP 139/79; PULSE 79; RESP 18; TEMP 97.8; O2SAT 95
[2023-04-04] MEDS: OMEGA-3/DHA/EPA/FISH OIL 1,000 MG CAPSULE PO SCH (08:30)
[2023-04-04] MEDS: GABAPENTIN 300 MG CAPSULE PO SCH ×3 (08:30→16:36)
[2023-04-04] MEDS: TRIHEXYPHENIDYL HCL 2 MG TABLET PO SCH ×3 (08:30→16:36)
[2023-04-04] MEDS: DOCUSATE SODIUM 250 MG CAPSULE PO SCH ×2 (08:30→16:36)
[2023-04-04] MEDS: FLUoxetine HCL 20 MG CAPSULE PO SCH (08:30)
[2023-04-04] MEDS: AmLODIPine BESYLATE 5 MG TABLET PO SCH (08:31)
[2023-04-04] MEDS: LISINOPRIL 10 MG TABLET PO SCH (08:31)
[2023-04-04 09:45] VITALS: RESP 18; O2SAT 95
[2023-04-04] MEDS: IBUPROFEN 600 MG TABLET PO PRN (09:45)
[2023-04-04 10:45] VITALS: RESP 18
[2023-04-04 20:09] VITALS: BP 142/83; PULSE 77; RESP 18; TEMP 97.7; O2SAT 97
[2023-04-04] MEDS: GABAPENTIN 400 MG CAPSULE PO SCH (20:33)
[2023-04-04] MEDS: MELATONIN 5 MG TABLET PO SCH (20:33)
[2023-04-04] MEDS: MIRTAZAPINE 15 MG TABLET PO SCH (20:33)
[2023-04-04] MEDS: ATORVASTATIN CALCIUM 20 MG TABLET PO SCH (20:33)
[2023-04-04] MEDS: OLANZapine 10 MG RAPDIS TABLET PO SCH (20:34)
[2023-04-05] MEDS: AmLODIPine BESYLATE 5 MG TABLET PO SCH (08:50)
[2023-04-05] MEDS: GABAPENTIN 300 MG CAPSULE PO SCH ×3 (08:50→16:07)
[2023-04-05] MEDS: OMEGA-3/DHA/EPA/FISH OIL 1,000 MG CAPSULE PO SCH (08:51)
[2023-04-05] MEDS: TRIHEXYPHENIDYL HCL 2 MG TABLET PO SCH ×3 (08:51→16:07)
[2023-04-05] MEDS: LISINOPRIL 10 MG TABLET PO SCH (08:51)
[2023-04-05] MEDS: DOCUSATE SODIUM 250 MG CAPSULE PO SCH ×2 (08:51→16:07)
[2023-04-05] MEDS: FLUoxetine HCL 20 MG CAPSULE PO SCH (08:51)
[2023-04-05] MEDS: ACETAMINOPHEN 325 MG TABLET PO PRN (09:45)
[2023-04-05 13:08] VITALS: BP 136/87; PULSE 89; RESP 19; TEMP 98.1; O2SAT 95
[2023-04-05] MEDS: ATORVASTATIN CALCIUM 20 MG TABLET PO SCH (20:02)
[2023-04-05] MEDS: OLANZapine 10 MG RAPDIS TABLET PO SCH (20:03)
[2023-04-05] MEDS: GABAPENTIN 400 MG CAPSULE PO SCH (20:03)
[2023-04-05] MEDS: MIRTAZAPINE 15 MG TABLET PO SCH (20:03)
[2023-04-05 20:14] VITALS: BP 138/78; PULSE 77; RESP 20; TEMP 97.9; O2SAT 95
[2023-04-05] MEDS: MELATONIN 5 MG TABLET PO SCH (20:19)
[2023-04-06 08:25] VITALS: BP 118/74; PULSE 66; RESP 17; TEMP 98.1; O2SAT 97
[2023-04-06] MEDS: TRIHEXYPHENIDYL HCL 2 MG TABLET PO SCH ×3 (08:41→16:15)
[2023-04-06] MEDS: DOCUSATE SODIUM 250 MG CAPSULE PO SCH ×2 (08:41→16:15)
[2023-04-06] MEDS: OMEGA-3/DHA/EPA/FISH OIL 1,000 MG CAPSULE PO SCH (08:41)
[2023-04-06] MEDS: LISINOPRIL 10 MG TABLET PO SCH (08:42)
[2023-04-06] MEDS: GABAPENTIN 300 MG CAPSULE PO SCH ×3 (08:42→16:18)
[2023-04-06] MEDS: AmLODIPine BESYLATE 5 MG TABLET PO SCH (08:42)
[2023-04-06] MEDS: FLUoxetine HCL 20 MG CAPSULE PO SCH (08:42)
[2023-04-06 10:01] VITALS: RESP 18; O2SAT 97
[2023-04-06] MEDS: IBUPROFEN 600 MG TABLET PO PRN (10:01)
[2023-04-06 11:01] VITALS: RESP 18
[2023-04-06 20:00] VITALS: BP 125/73; PULSE 75; RESP 18; TEMP 98; O2SAT 97
[2023-04-06] MEDS: MIRTAZAPINE 15 MG TABLET PO SCH (20:13)
[2023-04-06] MEDS: MELATONIN 5 MG TABLET PO SCH (20:14)
[2023-04-06] MEDS: ATORVASTATIN CALCIUM 20 MG TABLET PO SCH (20:14)
[2023-04-06] MEDS: GABAPENTIN 400 MG CAPSULE PO SCH (20:14)
[2023-04-06] MEDS: OLANZapine 10 MG RAPDIS TABLET PO SCH (20:14)
[2023-04-07 08:42] VITALS: BP 149/95; PULSE 99; RESP 19; TEMP 98; O2SAT 97
[2023-04-07] MEDS: OMEGA-3/DHA/EPA/FISH OIL 1,000 MG CAPSULE PO SCH (08:45)
[2023-04-07] MEDS: TRIHEXYPHENIDYL HCL 2 MG TABLET PO SCH ×3 (08:45→16:25)
[2023-04-07] MEDS: FLUoxetine HCL 20 MG CAPSULE PO SCH (08:46)
[2023-04-07] MEDS: DOCUSATE SODIUM 250 MG CAPSULE PO SCH ×2 (08:46→16:26)
[2023-04-07] MEDS: GABAPENTIN 300 MG CAPSULE PO SCH ×3 (08:46→16:26)
[2023-04-07] MEDS: LISINOPRIL 10 MG TABLET PO SCH (08:46)
[2023-04-07] MEDS: AmLODIPine BESYLATE 5 MG TABLET PO SCH (08:46)
[2023-04-07] MEDS: MIRTAZAPINE 15 MG TABLET PO SCH (20:22)
[2023-04-07] MEDS: OLANZapine 10 MG RAPDIS TABLET PO SCH (20:23)
[2023-04-07] MEDS: GABAPENTIN 400 MG CAPSULE PO SCH (20:24)
[2023-04-07] MEDS: ATORVASTATIN CALCIUM 20 MG TABLET PO SCH (20:26)
[2023-04-07] MEDS: MELATONIN 5 MG TABLET PO SCH (20:27)
[2023-04-07 20:32] VITALS: BP 133/82; PULSE 95; RESP 18; TEMP 97.8; O2SAT 94
[2023-04-08] MEDS: TRIHEXYPHENIDYL HCL 2 MG TABLET PO SCH ×3 (09:17→16:09)
[2023-04-08 09:18] VITALS: BP 136/70; PULSE 93; RESP 18; TEMP 98; O2SAT 97
[2023-04-08] MEDS: AmLODIPine BESYLATE 5 MG TABLET PO SCH (09:18)
[2023-04-08] MEDS: OMEGA-3/DHA/EPA/FISH OIL 1,000 MG CAPSULE PO SCH (09:18)
[2023-04-08] MEDS: LISINOPRIL 10 MG TABLET PO SCH (09:18)
[2023-04-08] MEDS: FLUoxetine HCL 20 MG CAPSULE PO SCH (09:18)
[2023-04-08] MEDS: DOCUSATE SODIUM 250 MG CAPSULE PO SCH ×2 (09:18→16:09)
[2023-04-08] MEDS: GABAPENTIN 300 MG CAPSULE PO SCH ×3 (09:18→16:10)
[2023-04-08 10:26] VITALS: RESP 18; O2SAT 97
[2023-04-08] MEDS: IBUPROFEN 600 MG TABLET PO PRN (10:26)
[2023-04-08 11:26] VITALS: RESP 18
[2023-04-08] MEDS: GABAPENTIN 400 MG CAPSULE PO SCH (20:04)
[2023-04-08] MEDS: MIRTAZAPINE 15 MG TABLET PO SCH (20:04)
[2023-04-08] MEDS: OLANZapine 10 MG RAPDIS TABLET PO SCH (20:05)
[2023-04-08] MEDS: ATORVASTATIN CALCIUM 20 MG TABLET PO SCH (20:05)
[2023-04-08] MEDS: MELATONIN 5 MG TABLET PO SCH (20:05)
[2023-04-08 20:34] VITALS: BP 138/82; PULSE 100; RESP 18; TEMP 98; O2SAT 98
[2023-04-09] MEDS: LITHIUM CARBONATE 300 MG CAPSULE PO SCH ×3 (06:46→16:21)
[2023-04-09 08:18] VITALS: BP 148/84; PULSE 80; RESP 18; TEMP 98.2; O2SAT 95
[2023-04-09] MEDS: DOCUSATE SODIUM 250 MG CAPSULE PO SCH ×2 (08:19→16:21)
[2023-04-09] MEDS: TRIHEXYPHENIDYL HCL 2 MG TABLET PO SCH ×3 (08:19→16:21)
[2023-04-09] MEDS: GABAPENTIN 300 MG CAPSULE PO SCH ×3 (08:19→16:21)
[2023-04-09] MEDS: OMEGA-3/DHA/EPA/FISH OIL 1,000 MG CAPSULE PO SCH (08:19)
[2023-04-09] MEDS: LISINOPRIL 10 MG TABLET PO SCH (08:20)
[2023-04-09] MEDS: FLUoxetine HCL 20 MG CAPSULE PO SCH (08:21)
[2023-04-09] MEDS: AmLODIPine BESYLATE 5 MG TABLET PO SCH (08:21)
[2023-04-09] MEDS: GABAPENTIN 400 MG CAPSULE PO SCH (20:01)
[2023-04-09] MEDS: MELATONIN 5 MG TABLET PO SCH (20:01)
[2023-04-09] MEDS: OLANZapine 10 MG RAPDIS TABLET PO SCH (20:01)
[2023-04-09] MEDS: MIRTAZAPINE 15 MG TABLET PO SCH (20:01)
[2023-04-09] MEDS: ATORVASTATIN CALCIUM 20 MG TABLET PO SCH (20:01)
[2023-04-09 20:06] VITALS: BP 112/74; PULSE 91; RESP 18; TEMP 97.6; O2SAT 97
[2023-04-10] MEDS: LITHIUM CARBONATE 300 MG CAPSULE PO SCH ×3 (06:29→17:03)
[2023-04-10 08:17] VITALS: BP 147/89; PULSE 84; RESP 18; TEMP 98.4; O2SAT 96
[2023-04-10] MEDS: TRIHEXYPHENIDYL HCL 2 MG TABLET PO SCH ×3 (08:22→17:03)
[2023-04-10] MEDS: DOCUSATE SODIUM 250 MG CAPSULE PO SCH ×2 (08:22→17:03)
[2023-04-10] MEDS: OMEGA-3/DHA/EPA/FISH OIL 1,000 MG CAPSULE PO SCH (08:22)
[2023-04-10] MEDS: FLUoxetine HCL 20 MG CAPSULE PO SCH (08:23)
[2023-04-10] MEDS: GABAPENTIN 300 MG CAPSULE PO SCH ×3 (08:23→17:03)
[2023-04-10] MEDS: AmLODIPine BESYLATE 5 MG TABLET PO SCH (08:23)
[2023-04-10] MEDS: LISINOPRIL 10 MG TABLET PO SCH (08:23)
[2023-04-10 09:55] VITALS: RESP 18; O2SAT 96
[2023-04-10] MEDS: IBUPROFEN 600 MG TABLET PO PRN (09:55)
[2023-04-10 10:55] VITALS: RESP 18
[2023-04-10 20:10] VITALS: BP 126/71; PULSE 86; RESP 17; TEMP 97.2; O2SAT 95
[2023-04-10] MEDS: GABAPENTIN 400 MG CAPSULE PO SCH (20:41)
[2023-04-10] MEDS: MIRTAZAPINE 15 MG TABLET PO SCH (20:41)
[2023-04-10] MEDS: MELATONIN 5 MG TABLET PO SCH (20:41)
[2023-04-10] MEDS: ATORVASTATIN CALCIUM 20 MG TABLET PO SCH (20:41)
[2023-04-10] MEDS: OLANZapine 10 MG RAPDIS TABLET PO SCH (20:41)
[2023-04-11] MEDS: LITHIUM CARBONATE 300 MG CAPSULE PO SCH ×3 (06:48→16:46)
[2023-04-11] MEDS: TraMADol HCL 50 MG TABLET PO PRN (06:52)
[2023-04-11 07:52] VITALS: RESP 19; O2SAT 99
[2023-04-11 08:21] VITALS: BP 140/90; PULSE 91; RESP 19; TEMP 98.6; O2SAT 99
[2023-04-11] MEDS: GABAPENTIN 300 MG CAPSULE PO SCH ×3 (08:49→16:46)
[2023-04-11] MEDS: TRIHEXYPHENIDYL HCL 2 MG TABLET PO SCH ×3 (08:49→16:46)
[2023-04-11] MEDS: DOCUSATE SODIUM 250 MG CAPSULE PO SCH ×2 (08:49→16:46)
[2023-04-11] MEDS: FLUoxetine HCL 20 MG CAPSULE PO SCH (08:50)
[2023-04-11] MEDS: LISINOPRIL 10 MG TABLET PO SCH (08:50)
[2023-04-11] MEDS: OMEGA-3/DHA/EPA/FISH OIL 1,000 MG CAPSULE PO SCH (08:50)
[2023-04-11] MEDS: AmLODIPine BESYLATE 5 MG TABLET PO SCH (08:50)
[2023-04-11 20:12] VITALS: BP 127/77; PULSE 73; RESP 18; TEMP 97.9; O2SAT 97
[2023-04-11] MEDS: GABAPENTIN 400 MG CAPSULE PO SCH (20:21)
[2023-04-11] MEDS: ATORVASTATIN CALCIUM 20 MG TABLET PO SCH (20:21)
[2023-04-11] MEDS: MIRTAZAPINE 15 MG TABLET PO SCH (20:21)
[2023-04-11] MEDS: OLANZapine 10 MG RAPDIS TABLET PO SCH (20:21)
[2023-04-11] MEDS: MELATONIN 5 MG TABLET PO SCH (20:22)
[2023-04-12] MEDS: LITHIUM CARBONATE 300 MG CAPSULE PO SCH ×3 (06:45→16:20)
[2023-04-12 08:07] VITALS: BP 142/97; PULSE 68; RESP 17; TEMP 98; O2SAT 98
[2023-04-12] MEDS: OMEGA-3/DHA/EPA/FISH OIL 1,000 MG CAPSULE PO SCH (08:30)
[2023-04-12] MEDS: GABAPENTIN 300 MG CAPSULE PO SCH ×3 (08:30→16:20)
[2023-04-12] MEDS: TRIHEXYPHENIDYL HCL 2 MG TABLET PO SCH ×3 (08:30→16:20)
[2023-04-12] MEDS: DOCUSATE SODIUM 250 MG CAPSULE PO SCH ×2 (08:30→16:20)
[2023-04-12] MEDS: AmLODIPine BESYLATE 5 MG TABLET PO SCH (08:30)
[2023-04-12] MEDS: LISINOPRIL 10 MG TABLET PO SCH (08:30)
[2023-04-12] MEDS: FLUoxetine HCL 20 MG CAPSULE PO SCH (08:31)
[2023-04-12 09:55] VITALS: RESP 18; O2SAT 98
[2023-04-12] MEDS: IBUPROFEN 600 MG TABLET PO PRN (09:55)
[2023-04-12 10:55] VITALS: RESP 18; O2SAT 98
[2023-04-12] MEDS: OLANZapine 10 MG RAPDIS TABLET PO SCH (20:21)
[2023-04-12] MEDS: MIRTAZAPINE 15 MG TABLET PO SCH (20:21)
[2023-04-12] MEDS: MELATONIN 5 MG TABLET PO SCH (20:21)
[2023-04-12] MEDS: ATORVASTATIN CALCIUM 20 MG TABLET PO SCH (20:21)
[2023-04-12] MEDS: GABAPENTIN 400 MG CAPSULE PO SCH (20:21)
[2023-04-12 21:12] VITALS: RESP 20; TEMP 98
[2023-04-13] MEDS: LITHIUM CARBONATE 300 MG CAPSULE PO SCH ×3 (06:08→16:34)
[2023-04-13 08:10] VITALS: BP 120/52; PULSE 94; RESP 17; TEMP 98.2; O2SAT 98
[2023-04-13] MEDS: GABAPENTIN 300 MG CAPSULE PO SCH ×3 (08:11→16:34)
[2023-04-13] MEDS: OMEGA-3/DHA/EPA/FISH OIL 1,000 MG CAPSULE PO SCH (08:11)
[2023-04-13] MEDS: TRIHEXYPHENIDYL HCL 2 MG TABLET PO SCH ×3 (08:11→16:34)
[2023-04-13] MEDS: DOCUSATE SODIUM 250 MG CAPSULE PO SCH ×2 (08:11→16:34)
[2023-04-13] MEDS: FLUoxetine HCL 20 MG CAPSULE PO SCH (08:12)
[2023-04-13] MEDS: IBUPROFEN 600 MG TABLET PO PRN (10:20)
[2023-04-13 10:25] VITALS: BP 121/72; PULSE 92; RESP 17
[2023-04-13] MEDS: AmLODIPine BESYLATE 5 MG TABLET PO SCH (10:25)
[2023-04-13] MEDS: LISINOPRIL 10 MG TABLET PO SCH (10:25)
[2023-04-13 11:20] VITALS: RESP 16
[2023-04-13] MEDS: GABAPENTIN 400 MG CAPSULE PO SCH (20:03)
[2023-04-13] MEDS: OLANZapine 10 MG RAPDIS TABLET PO SCH (20:04)
[2023-04-13] MEDS: MIRTAZAPINE 15 MG TABLET PO SCH (20:04)
[2023-04-13] MEDS: MELATONIN 5 MG TABLET PO SCH (20:04)
[2023-04-13] MEDS: ATORVASTATIN CALCIUM 20 MG TABLET PO SCH (20:04)
[2023-04-13 20:14] VITALS: BP 125/80; PULSE 80; RESP 18; TEMP 98.2; O2SAT 95
[2023-04-14] MEDS: LITHIUM CARBONATE 300 MG CAPSULE PO SCH ×3 (06:47→16:29)
[2023-04-14 08:40] VITALS: BP 132/103; PULSE 94; RESP 17; TEMP 98.2; O2SAT 96
[2023-04-14] MEDS: LISINOPRIL 10 MG TABLET PO SCH (08:40)
[2023-04-14] MEDS: FLUoxetine HCL 20 MG CAPSULE PO SCH (08:40)
[2023-04-14] MEDS: TRIHEXYPHENIDYL HCL 2 MG TABLET PO SCH ×3 (08:40→16:30)
[2023-04-14] MEDS: DOCUSATE SODIUM 250 MG CAPSULE PO SCH ×2 (08:40→16:29)
[2023-04-14] MEDS: GABAPENTIN 300 MG CAPSULE PO SCH ×3 (08:40→16:30)
[2023-04-14] MEDS: OMEGA-3/DHA/EPA/FISH OIL 1,000 MG CAPSULE PO SCH (08:40)
[2023-04-14] MEDS: AmLODIPine BESYLATE 5 MG TABLET PO SCH (08:41)
[2023-04-14 10:30] VITALS: BP 133/75; RESP 17; O2SAT 95
[2023-04-14 13:42] VITALS: RESP 17
[2023-04-14] MEDS: IBUPROFEN 600 MG TABLET PO PRN (13:42)
[2023-04-14 14:42] VITALS: RESP 16
[2023-04-14 20:06] VITALS: BP 119/70; PULSE 75; RESP 18; TEMP 97.6; O2SAT 95
[2023-04-14] MEDS: GABAPENTIN 400 MG CAPSULE PO SCH (20:27)
[2023-04-14] MEDS: OLANZapine 10 MG RAPDIS TABLET PO SCH (20:27)
[2023-04-14] MEDS: MELATONIN 5 MG TABLET PO SCH (20:27)
[2023-04-14] MEDS: ATORVASTATIN CALCIUM 20 MG TABLET PO SCH (20:27)
[2023-04-14] MEDS: MIRTAZAPINE 15 MG TABLET PO SCH (20:55)
[2023-04-15] MEDS: LITHIUM CARBONATE 300 MG CAPSULE PO SCH ×3 (06:48→16:54)
[2023-04-15 08:28] VITALS: BP 121/69; PULSE 85; RESP 19; TEMP 97.1; O2SAT 97
[2023-04-15] MEDS: TRIHEXYPHENIDYL HCL 2 MG TABLET PO SCH ×3 (08:33→16:11)
[2023-04-15] MEDS: OMEGA-3/DHA/EPA/FISH OIL 1,000 MG CAPSULE PO SCH (08:33)
[2023-04-15] MEDS: DOCUSATE SODIUM 250 MG CAPSULE PO SCH ×2 (08:33→16:11)
[2023-04-15] MEDS: LISINOPRIL 10 MG TABLET PO SCH (08:34)
[2023-04-15] MEDS: FLUoxetine HCL 20 MG CAPSULE PO SCH (08:34)
[2023-04-15] MEDS: AmLODIPine BESYLATE 5 MG TABLET PO SCH (08:34)
[2023-04-15] MEDS: GABAPENTIN 300 MG CAPSULE PO SCH ×3 (08:34→16:11)
[2023-04-15 10:04] VITALS: RESP 19; O2SAT 97
[2023-04-15] MEDS: IBUPROFEN 600 MG TABLET PO PRN (10:04)
[2023-04-15 11:04] VITALS: RESP 18; O2SAT 97
[2023-04-15] MEDS: OLANZapine 10 MG RAPDIS TABLET PO SCH (20:33)
[2023-04-15] MEDS: MELATONIN 5 MG TABLET PO SCH (20:33)
[2023-04-15] MEDS: MIRTAZAPINE 15 MG TABLET PO SCH (20:33)
[2023-04-15] MEDS: GABAPENTIN 400 MG CAPSULE PO SCH (20:34)
[2023-04-15 20:35] VITALS: BP 117/82; PULSE 80; RESP 19; TEMP 98.7; O2SAT 97
[2023-04-15] MEDS: ATORVASTATIN CALCIUM 20 MG TABLET PO SCH (20:52)
[2023-04-16] MEDS: LITHIUM CARBONATE 300 MG CAPSULE PO SCH ×3 (06:30→16:53)
[2023-04-16 08:10] VITALS: BP 140/69; PULSE 92; RESP 17; TEMP 97.9; O2SAT 98
[2023-04-16] MEDS: TRIHEXYPHENIDYL HCL 2 MG TABLET PO SCH ×3 (08:19→16:23)
[2023-04-16] MEDS: FLUoxetine HCL 20 MG CAPSULE PO SCH (08:19)
[2023-04-16] MEDS: AmLODIPine BESYLATE 5 MG TABLET PO SCH (08:19)
[2023-04-16] MEDS: LISINOPRIL 10 MG TABLET PO SCH (08:19)
[2023-04-16] MEDS: DOCUSATE SODIUM 250 MG CAPSULE PO SCH ×2 (08:19→16:23)
[2023-04-16] MEDS: OMEGA-3/DHA/EPA/FISH OIL 1,000 MG CAPSULE PO SCH (08:19)
[2023-04-16] MEDS: GABAPENTIN 300 MG CAPSULE PO SCH ×3 (08:19→16:23)
[2023-04-16 12:43] VITALS: RESP 17
[2023-04-16] MEDS: IBUPROFEN 600 MG TABLET PO PRN (12:43)
[2023-04-16 13:43] VITALS: RESP 18
[2023-04-16 20:03] VITALS: BP 127/76; PULSE 75; RESP 19; TEMP 97.7; O2SAT 97
[2023-04-16] MEDS: MIRTAZAPINE 15 MG TABLET PO SCH (20:38)
[2023-04-16] MEDS: MELATONIN 5 MG TABLET PO SCH (20:38)
[2023-04-16] MEDS: GABAPENTIN 400 MG CAPSULE PO SCH (20:39)
[2023-04-16] MEDS: ATORVASTATIN CALCIUM 20 MG TABLET PO SCH (20:39)
[2023-04-16] MEDS: OLANZapine 10 MG RAPDIS TABLET PO SCH (20:39)
[2023-04-17] MEDS: LITHIUM CARBONATE 300 MG CAPSULE PO SCH ×3 (06:51→16:32)
[2023-04-17 08:05] VITALS: BP 121/81; PULSE 70; RESP 18; TEMP 98; O2SAT 97
[2023-04-17] MEDS: DOCUSATE SODIUM 250 MG CAPSULE PO SCH ×2 (08:39→16:32)
[2023-04-17] MEDS: TRIHEXYPHENIDYL HCL 2 MG TABLET PO SCH ×3 (08:39→16:32)
[2023-04-17] MEDS: OMEGA-3/DHA/EPA/FISH OIL 1,000 MG CAPSULE PO SCH (08:39)
[2023-04-17] MEDS: FLUoxetine HCL 20 MG CAPSULE PO SCH (08:39)
[2023-04-17] MEDS: LISINOPRIL 10 MG TABLET PO SCH (08:39)
[2023-04-17] MEDS: GABAPENTIN 300 MG CAPSULE PO SCH ×3 (08:40→16:32)
[2023-04-17] MEDS: AmLODIPine BESYLATE 5 MG TABLET PO SCH (08:40)
[2023-04-17 20:26] VITALS: BP 130/80; PULSE 83; RESP 18; TEMP 97.5; O2SAT 96
[2023-04-17] MEDS: GABAPENTIN 400 MG CAPSULE PO SCH (20:37)
[2023-04-17] MEDS: ATORVASTATIN CALCIUM 20 MG TABLET PO SCH (20:37)
[2023-04-17] MEDS: OLANZapine 10 MG RAPDIS TABLET PO SCH (20:37)
[2023-04-17] MEDS: MIRTAZAPINE 15 MG TABLET PO SCH (20:37)
[2023-04-17] MEDS: MELATONIN 5 MG TABLET PO SCH (20:38)
[2023-04-18] MEDS: LITHIUM CARBONATE 300 MG CAPSULE PO SCH ×3 (07:12→16:55)
[2023-04-18 08:09] VITALS: BP 138/79; PULSE 70; RESP 18; TEMP 97.8; O2SAT 96
[2023-04-18] MEDS: TRIHEXYPHENIDYL HCL 2 MG TABLET PO SCH ×3 (08:32→16:54)
[2023-04-18] MEDS: AmLODIPine BESYLATE 5 MG TABLET PO SCH (08:33)
[2023-04-18] MEDS: LISINOPRIL 10 MG TABLET PO SCH (08:33)
[2023-04-18] MEDS: DOCUSATE SODIUM 250 MG CAPSULE PO SCH ×2 (08:33→16:55)
[2023-04-18] MEDS: FLUoxetine HCL 20 MG CAPSULE PO SCH (08:33)
[2023-04-18] MEDS: OMEGA-3/DHA/EPA/FISH OIL 1,000 MG CAPSULE PO SCH (08:33)
[2023-04-18] MEDS: GABAPENTIN 300 MG CAPSULE PO SCH ×3 (08:34→16:55)
[2023-04-18 13:37] VITALS: RESP 18; O2SAT 96
[2023-04-18] MEDS: IBUPROFEN 600 MG TABLET PO PRN (13:37)
[2023-04-18 14:37] VITALS: RESP 18
[2023-04-18] MEDS: ATORVASTATIN CALCIUM 20 MG TABLET PO SCH (20:18)
[2023-04-18] MEDS: GABAPENTIN 400 MG CAPSULE PO SCH (20:18)
[2023-04-18] MEDS: OLANZapine 10 MG RAPDIS TABLET PO SCH (20:18)
[2023-04-18] MEDS: MIRTAZAPINE 15 MG TABLET PO SCH (20:18)
[2023-04-18] MEDS: MELATONIN 5 MG TABLET PO SCH (20:18)
[2023-04-18 20:32] VITALS: BP 119/76; PULSE 74; RESP 18; TEMP 97.7; O2SAT 97
[2023-04-19] MEDS: LITHIUM CARBONATE 300 MG CAPSULE PO SCH ×3 (06:52→17:27)
[2023-04-19 08:00] VITALS: BP 154/88; PULSE 76; RESP 19; TEMP 97.4; O2SAT 98
[2023-04-19] MEDS: LISINOPRIL 10 MG TABLET PO SCH (08:00)
[2023-04-19] MEDS: DOCUSATE SODIUM 250 MG CAPSULE PO SCH ×2 (08:00→17:27)
[2023-04-19] MEDS: AmLODIPine BESYLATE 5 MG TABLET PO SCH (08:00)
[2023-04-19] MEDS: TRIHEXYPHENIDYL HCL 2 MG TABLET PO SCH ×3 (08:00→17:27)
[2023-04-19] MEDS: IBUPROFEN 600 MG TABLET PO PRN (08:00)
[2023-04-19] MEDS: OMEGA-3/DHA/EPA/FISH OIL 1,000 MG CAPSULE PO SCH (08:01)
[2023-04-19] MEDS: FLUoxetine HCL 20 MG CAPSULE PO SCH (08:01)
[2023-04-19] MEDS: GABAPENTIN 300 MG CAPSULE PO SCH ×3 (08:01→17:27)
[2023-04-19 08:13] VITALS: BP 154/88; PULSE 76; RESP 19; TEMP 97.9; O2SAT 98
[2023-04-19] MEDS: ATORVASTATIN CALCIUM 20 MG TABLET PO SCH (20:08)
[2023-04-19] MEDS: OLANZapine 10 MG RAPDIS TABLET PO SCH (20:08)
[2023-04-19] MEDS: MELATONIN 5 MG TABLET PO SCH (20:08)
[2023-04-19] MEDS: GABAPENTIN 400 MG CAPSULE PO SCH (20:09)
[2023-04-19] MEDS: MIRTAZAPINE 15 MG TABLET PO SCH (20:09)
[2023-04-19 20:18] VITALS: BP 101/66; PULSE 67; RESP 18; TEMP 97.6; O2SAT 99
[2023-04-20] MEDS: LITHIUM CARBONATE 300 MG CAPSULE PO SCH ×3 (06:26→17:03)
[2023-04-20] MEDS: LISINOPRIL 10 MG TABLET PO SCH (08:42)
[2023-04-20] MEDS: OMEGA-3/DHA/EPA/FISH OIL 1,000 MG CAPSULE PO SCH (08:42)
[2023-04-20] MEDS: TRIHEXYPHENIDYL HCL 2 MG TABLET PO SCH ×3 (08:42→17:03)
[2023-04-20] MEDS: DOCUSATE SODIUM 250 MG CAPSULE PO SCH ×2 (08:42→17:03)
[2023-04-20] MEDS: GABAPENTIN 300 MG CAPSULE PO SCH ×3 (08:42→17:03)
[2023-04-20] MEDS: FLUoxetine HCL 20 MG CAPSULE PO SCH (08:43)
[2023-04-20] MEDS: AmLODIPine BESYLATE 5 MG TABLET PO SCH (08:43)
[2023-04-20 08:59] VITALS: BP 121/67; PULSE 89; RESP 17; TEMP 97.7; O2SAT 96
[2023-04-20 09:55] VITALS: RESP 18; O2SAT 96
[2023-04-20] MEDS: IBUPROFEN 600 MG TABLET PO PRN (09:55)
[2023-04-20 10:55] VITALS: RESP 17; O2SAT 96
[2023-04-20 20:13] VITALS: BP 108/64; PULSE 77; RESP 19; TEMP 97.4; O2SAT 96
[2023-04-20] MEDS: MIRTAZAPINE 15 MG TABLET PO SCH (20:33)
[2023-04-20] MEDS: ATORVASTATIN CALCIUM 20 MG TABLET PO SCH (20:33)
[2023-04-20] MEDS: MELATONIN 5 MG TABLET PO SCH (20:33)
[2023-04-20] MEDS: OLANZapine 10 MG RAPDIS TABLET PO SCH (20:33)
[2023-04-20] MEDS: GABAPENTIN 400 MG CAPSULE PO SCH (20:33)
[2023-04-21] MEDS: LITHIUM CARBONATE 300 MG CAPSULE PO SCH ×3 (06:36→17:00)
[2023-04-21 08:05] VITALS: BP 145/80; PULSE 67; RESP 18; TEMP 97.8; O2SAT 97
[2023-04-21] MEDS: OMEGA-3/DHA/EPA/FISH OIL 1,000 MG CAPSULE PO SCH (08:47)
[2023-04-21] MEDS: LISINOPRIL 10 MG TABLET PO SCH (08:47)
[2023-04-21] MEDS: AmLODIPine BESYLATE 5 MG TABLET PO SCH (08:47)
[2023-04-21] MEDS: DOCUSATE SODIUM 250 MG CAPSULE PO SCH ×2 (08:47→17:00)
[2023-04-21] MEDS: TRIHEXYPHENIDYL HCL 2 MG TABLET PO SCH ×3 (08:47→17:00)
[2023-04-21] MEDS: GABAPENTIN 300 MG CAPSULE PO SCH ×3 (08:48→17:00)
[2023-04-21] MEDS: FLUoxetine HCL 20 MG CAPSULE PO SCH (08:48)
[2023-04-21 20:14] VITALS: BP 110/69; PULSE 70; RESP 18; TEMP 97.6; O2SAT 97
[2023-04-21] MEDS: OLANZapine 10 MG RAPDIS TABLET PO SCH (21:02)
[2023-04-21] MEDS: MIRTAZAPINE 15 MG TABLET PO SCH (21:03)
[2023-04-21] MEDS: GABAPENTIN 400 MG CAPSULE PO SCH (21:04)
[2023-04-21] MEDS: ATORVASTATIN CALCIUM 20 MG TABLET PO SCH (21:05)
[2023-04-21] MEDS: MELATONIN 5 MG TABLET PO SCH (21:05)
[2023-04-22] MEDS: LITHIUM CARBONATE 300 MG CAPSULE PO SCH ×3 (06:22→16:28)
[2023-04-22 08:05] VITALS: BP 139/87; PULSE 83; RESP 17; TEMP 98.1; O2SAT 96
[2023-04-22] MEDS: GABAPENTIN 300 MG CAPSULE PO SCH ×3 (08:25→16:28)
[2023-04-22] MEDS: FLUoxetine HCL 20 MG CAPSULE PO SCH (08:25)
[2023-04-22] MEDS: TRIHEXYPHENIDYL HCL 2 MG TABLET PO SCH ×3 (08:25→16:28)
[2023-04-22] MEDS: LISINOPRIL 10 MG TABLET PO SCH (08:25)
[2023-04-22] MEDS: OMEGA-3/DHA/EPA/FISH OIL 1,000 MG CAPSULE PO SCH (08:25)
[2023-04-22] MEDS: DOCUSATE SODIUM 250 MG CAPSULE PO SCH ×2 (08:25→16:28)
[2023-04-22] MEDS: AmLODIPine BESYLATE 5 MG TABLET PO SCH (08:25)
[2023-04-22 20:04] VITALS: BP 109/69; PULSE 75; RESP 20; TEMP 98.2; O2SAT 99
[2023-04-22] MEDS: MIRTAZAPINE 15 MG TABLET PO SCH (20:07)
[2023-04-22] MEDS: ATORVASTATIN CALCIUM 20 MG TABLET PO SCH (20:07)
[2023-04-22] MEDS: MELATONIN 5 MG TABLET PO SCH (20:07)
[2023-04-22] MEDS: GABAPENTIN 400 MG CAPSULE PO SCH (20:07)
[2023-04-22] MEDS: OLANZapine 10 MG RAPDIS TABLET PO SCH (20:07)
[2023-04-23] MEDS: LITHIUM CARBONATE 300 MG CAPSULE PO SCH ×3 (06:32→16:26)
[2023-04-23 08:44] VITALS: BP 128/74; PULSE 75; RESP 18; TEMP 98.3; O2SAT 97
[2023-04-23] MEDS: TRIHEXYPHENIDYL HCL 2 MG TABLET PO SCH ×3 (09:23→16:26)
[2023-04-23] MEDS: OMEGA-3/DHA/EPA/FISH OIL 1,000 MG CAPSULE PO SCH (09:24)
[2023-04-23] MEDS: AmLODIPine BESYLATE 5 MG TABLET PO SCH (09:24)
[2023-04-23] MEDS: FLUoxetine HCL 20 MG CAPSULE PO SCH (09:24)
[2023-04-23] MEDS: LISINOPRIL 10 MG TABLET PO SCH (09:24)
[2023-04-23] MEDS: GABAPENTIN 300 MG CAPSULE PO SCH ×3 (09:24→16:27)
[2023-04-23] MEDS: DOCUSATE SODIUM 250 MG CAPSULE PO SCH ×2 (09:24→16:26)
[2023-04-23 09:37] VITALS: RESP 18
[2023-04-23] MEDS: IBUPROFEN 600 MG TABLET PO PRN (09:37)
[2023-04-23 10:37] VITALS: RESP 18
[2023-04-23] MEDS: MELATONIN 5 MG TABLET PO SCH (20:01)
[2023-04-23] MEDS: ATORVASTATIN CALCIUM 20 MG TABLET PO SCH (20:01)
[2023-04-23] MEDS: MIRTAZAPINE 15 MG TABLET PO SCH (20:01)
[2023-04-23] MEDS: GABAPENTIN 400 MG CAPSULE PO SCH (20:01)
[2023-04-23] MEDS: OLANZapine 10 MG RAPDIS TABLET PO SCH (20:01)
[2023-04-23 20:03] VITALS: BP 129/70; PULSE 71; RESP 20; TEMP 97.9; O2SAT 98
[2023-04-24] MEDS: LITHIUM CARBONATE 300 MG CAPSULE PO SCH ×3 (06:22→16:34)
[2023-04-24 08:29] VITALS: BP 138/83; PULSE 79; RESP 18; TEMP 97.5; O2SAT 98
[2023-04-24] MEDS: TRIHEXYPHENIDYL HCL 2 MG TABLET PO SCH ×3 (08:44→16:33)
[2023-04-24] MEDS: DOCUSATE SODIUM 250 MG CAPSULE PO SCH ×2 (08:44→16:33)
[2023-04-24] MEDS: AmLODIPine BESYLATE 5 MG TABLET PO SCH (08:45)
[2023-04-24] MEDS: OMEGA-3/DHA/EPA/FISH OIL 1,000 MG CAPSULE PO SCH (08:45)
[2023-04-24] MEDS: FLUoxetine HCL 20 MG CAPSULE PO SCH (08:45)
[2023-04-24] MEDS: GABAPENTIN 300 MG CAPSULE PO SCH ×3 (08:45→16:33)
[2023-04-24] MEDS: LISINOPRIL 10 MG TABLET PO SCH (08:45)
[2023-04-24 20:03] VITALS: BP 121/69; PULSE 83; RESP 19; TEMP 98; O2SAT 96
[2023-04-24] MEDS: ATORVASTATIN CALCIUM 20 MG TABLET PO SCH (20:37)
[2023-04-24] MEDS: MELATONIN 5 MG TABLET PO SCH (20:37)
[2023-04-24] MEDS: OLANZapine 10 MG RAPDIS TABLET PO SCH (20:37)
[2023-04-24] MEDS: MIRTAZAPINE 15 MG TABLET PO SCH (20:37)
[2023-04-24] MEDS: GABAPENTIN 400 MG CAPSULE PO SCH (20:37)
[2023-04-25] MEDS: LITHIUM CARBONATE 300 MG CAPSULE PO SCH ×3 (07:11→17:02)
[2023-04-25 08:17] VITALS: BP 114/92; PULSE 76; RESP 19; TEMP 97.7; O2SAT 97
[2023-04-25] MEDS: TRIHEXYPHENIDYL HCL 2 MG TABLET PO SCH ×3 (08:46→17:02)
[2023-04-25] MEDS: GABAPENTIN 300 MG CAPSULE PO SCH ×3 (08:47→17:02)
[2023-04-25] MEDS: FLUoxetine HCL 20 MG CAPSULE PO SCH (08:47)
[2023-04-25] MEDS: DOCUSATE SODIUM 250 MG CAPSULE PO SCH ×2 (08:47→17:01)
[2023-04-25] MEDS: AmLODIPine BESYLATE 5 MG TABLET PO SCH (08:47)
[2023-04-25] MEDS: LISINOPRIL 10 MG TABLET PO SCH (08:47)
[2023-04-25] MEDS: OMEGA-3/DHA/EPA/FISH OIL 1,000 MG CAPSULE PO SCH (08:47)
[2023-04-25 20:21] VITALS: BP 128/70; PULSE 80; RESP 17; TEMP 98.2; O2SAT 95
[2023-04-25] MEDS: ATORVASTATIN CALCIUM 20 MG TABLET PO SCH (20:35)
[2023-04-25] MEDS: GABAPENTIN 400 MG CAPSULE PO SCH (20:35)
[2023-04-25] MEDS: MELATONIN 5 MG TABLET PO SCH (20:35)
[2023-04-25] MEDS: OLANZapine 10 MG RAPDIS TABLET PO SCH (20:35)
[2023-04-25] MEDS: MIRTAZAPINE 15 MG TABLET PO SCH (20:35)
[2023-04-26] MEDS: LITHIUM CARBONATE 300 MG CAPSULE PO SCH ×3 (07:05→17:07)
[2023-04-26 08:17] VITALS: BP 142/88; PULSE 88; RESP 19; TEMP 97.7; O2SAT 98
[2023-04-26] MEDS: FLUoxetine HCL 20 MG CAPSULE PO SCH (08:37)
[2023-04-26] MEDS: LISINOPRIL 10 MG TABLET PO SCH (08:37)
[2023-04-26] MEDS: OMEGA-3/DHA/EPA/FISH OIL 1,000 MG CAPSULE PO SCH (08:37)
[2023-04-26] MEDS: GABAPENTIN 300 MG CAPSULE PO SCH ×3 (08:37→17:07)
[2023-04-26] MEDS: DOCUSATE SODIUM 250 MG CAPSULE PO SCH ×2 (08:37→17:06)
[2023-04-26] MEDS: AmLODIPine BESYLATE 5 MG TABLET PO SCH (08:37)
[2023-04-26] MEDS: TRIHEXYPHENIDYL HCL 2 MG TABLET PO SCH ×3 (08:37→17:06)
[2023-04-26 20:15] VITALS: BP 132/82; PULSE 76; RESP 19; TEMP 97.9; O2SAT 98
[2023-04-26] MEDS: MELATONIN 5 MG TABLET PO SCH (20:48)
[2023-04-26] MEDS: GABAPENTIN 400 MG CAPSULE PO SCH (20:49)
[2023-04-26] MEDS: MIRTAZAPINE 15 MG TABLET PO SCH (20:49)
[2023-04-26] MEDS: OLANZapine 10 MG RAPDIS TABLET PO SCH (20:50)
[2023-04-26] MEDS: ATORVASTATIN CALCIUM 20 MG TABLET PO SCH (20:50)
[2023-04-27] MEDS: LITHIUM CARBONATE 300 MG CAPSULE PO SCH ×3 (06:40→16:58)
[2023-04-27 08:08] VITALS: BP 153/88; PULSE 84; RESP 20; TEMP 98.2; O2SAT 98
[2023-04-27] MEDS: AmLODIPine BESYLATE 5 MG TABLET PO SCH (08:16)
[2023-04-27] MEDS: LISINOPRIL 10 MG TABLET PO SCH (08:16)
[2023-04-27] MEDS: OMEGA-3/DHA/EPA/FISH OIL 1,000 MG CAPSULE PO SCH (08:16)
[2023-04-27] MEDS: TRIHEXYPHENIDYL HCL 2 MG TABLET PO SCH ×3 (08:17→16:58)
[2023-04-27] MEDS: FLUoxetine HCL 20 MG CAPSULE PO SCH (08:17)
[2023-04-27] MEDS: GABAPENTIN 300 MG CAPSULE PO SCH ×3 (08:17→16:58)
[2023-04-27] MEDS: DOCUSATE SODIUM 250 MG CAPSULE PO SCH ×2 (08:17→16:58)
[2023-04-27] MEDS: OLANZapine 10 MG RAPDIS TABLET PO SCH (20:20)
[2023-04-27] MEDS: MELATONIN 5 MG TABLET PO SCH (20:20)
[2023-04-27] MEDS: ATORVASTATIN CALCIUM 20 MG TABLET PO SCH (20:20)
[2023-04-27] MEDS: GABAPENTIN 400 MG CAPSULE PO SCH (20:20)
[2023-04-27] MEDS: MIRTAZAPINE 15 MG TABLET PO SCH (20:21)
[2023-04-27 20:28] VITALS: BP 136/76; PULSE 81; RESP 18; TEMP 97.8; O2SAT 96
[2023-04-28] MEDS: LITHIUM CARBONATE 300 MG CAPSULE PO SCH ×3 (06:33→16:42)
[2023-04-28 08:14] VITALS: BP 144/88; PULSE 88; RESP 19; TEMP 97.7; O2SAT 98
[2023-04-28] MEDS: LISINOPRIL 10 MG TABLET PO SCH (08:47)
[2023-04-28] MEDS: TRIHEXYPHENIDYL HCL 2 MG TABLET PO SCH ×3 (08:47→16:41)
[2023-04-28] MEDS: GABAPENTIN 300 MG CAPSULE PO SCH ×3 (08:48→16:41)
[2023-04-28] MEDS: AmLODIPine BESYLATE 5 MG TABLET PO SCH (08:48)
[2023-04-28] MEDS: OMEGA-3/DHA/EPA/FISH OIL 1,000 MG CAPSULE PO SCH (08:48)
[2023-04-28] MEDS: FLUoxetine HCL 20 MG CAPSULE PO SCH (08:48)
[2023-04-28] MEDS: DOCUSATE SODIUM 250 MG CAPSULE PO SCH ×2 (08:48→16:41)
[2023-04-28 13:15] VITALS: RESP 19; O2SAT 98
[2023-04-28] MEDS: IBUPROFEN 600 MG TABLET PO PRN (13:15)
[2023-04-28 14:15] VITALS: RESP 18; O2SAT 98
[2023-04-28] MEDS: ATORVASTATIN CALCIUM 20 MG TABLET PO SCH (20:16)
[2023-04-28] MEDS: OLANZapine 10 MG RAPDIS TABLET PO SCH (20:16)
[2023-04-28] MEDS: GABAPENTIN 400 MG CAPSULE PO SCH (20:16)
[2023-04-28] MEDS: MIRTAZAPINE 15 MG TABLET PO SCH (20:16)
[2023-04-28] MEDS: MELATONIN 5 MG TABLET PO SCH (20:16)
[2023-04-28 20:34] VITALS: RESP 17; TEMP 98
[2023-04-29] MEDS: LITHIUM CARBONATE 300 MG CAPSULE PO SCH ×3 (06:52→16:37)
[2023-04-29] MEDS: DOCUSATE SODIUM 250 MG CAPSULE PO SCH ×2 (08:45→16:36)
[2023-04-29] MEDS: LISINOPRIL 10 MG TABLET PO SCH (08:45)
[2023-04-29] MEDS: OMEGA-3/DHA/EPA/FISH OIL 1,000 MG CAPSULE PO SCH (08:45)
[2023-04-29] MEDS: TRIHEXYPHENIDYL HCL 2 MG TABLET PO SCH ×3 (08:45→16:36)
[2023-04-29] MEDS: AmLODIPine BESYLATE 5 MG TABLET PO SCH (08:46)
[2023-04-29] MEDS: FLUoxetine HCL 20 MG CAPSULE PO SCH (08:46)
[2023-04-29] MEDS: GABAPENTIN 300 MG CAPSULE PO SCH ×3 (08:46→16:36)
[2023-04-29 09:24] VITALS: BP 111/65; PULSE 75; RESP 20; TEMP 98.5; O2SAT 83
[2023-04-29] MEDS: MELATONIN 5 MG TABLET PO SCH (20:06)
[2023-04-29] MEDS: MIRTAZAPINE 15 MG TABLET PO SCH (20:07)
[2023-04-29] MEDS: ATORVASTATIN CALCIUM 20 MG TABLET PO SCH (20:07)
[2023-04-29] MEDS: GABAPENTIN 400 MG CAPSULE PO SCH (20:08)
[2023-04-29] MEDS: OLANZapine 5 MG RAPDIS TABLET PO SCH (20:09)
[2023-04-29 20:23] VITALS: BP 120/75; PULSE 66; RESP 17; TEMP 97.9; O2SAT 100
[2023-04-30] MEDS: LITHIUM CARBONATE 300 MG CAPSULE PO SCH ×3 (07:13→16:54)
[2023-04-30 08:17] VITALS: BP 144/91; PULSE 87; RESP 18; TEMP 97.8; O2SAT 97
[2023-04-30] MEDS: TRIHEXYPHENIDYL HCL 2 MG TABLET PO SCH ×3 (08:21→16:54)
[2023-04-30] MEDS: GABAPENTIN 300 MG CAPSULE PO SCH ×3 (08:21→16:54)
[2023-04-30] MEDS: OMEGA-3/DHA/EPA/FISH OIL 1,000 MG CAPSULE PO SCH (08:21)
[2023-04-30] MEDS: DOCUSATE SODIUM 250 MG CAPSULE PO SCH ×2 (08:21→16:54)
[2023-04-30] MEDS: LISINOPRIL 10 MG TABLET PO SCH (08:21)
[2023-04-30] MEDS: FLUoxetine HCL 20 MG CAPSULE PO SCH (08:21)
[2023-04-30] MEDS: AmLODIPine BESYLATE 5 MG TABLET PO SCH (08:22)
[2023-04-30 08:43] VITALS: RESP 18
[2023-04-30] MEDS: IBUPROFEN 600 MG TABLET PO PRN (08:43)
[2023-04-30 09:43] VITALS: RESP 18
[2023-04-30] MEDS: MIRTAZAPINE 15 MG TABLET PO SCH (20:29)
[2023-04-30] MEDS: ATORVASTATIN CALCIUM 20 MG TABLET PO SCH (20:31)
[2023-04-30] MEDS: OLANZapine 5 MG RAPDIS TABLET PO SCH (20:31)
[2023-04-30 20:32] VITALS: BP 126/84; PULSE 82; RESP 18; TEMP 97.9; O2SAT 97
[2023-04-30] MEDS: MELATONIN 5 MG TABLET PO SCH (20:33)
[2023-04-30] MEDS: GABAPENTIN 400 MG CAPSULE PO SCH (21:04)
[2023-05-01] MEDS: LITHIUM CARBONATE 300 MG CAPSULE PO SCH ×3 (06:39→16:48)
[2023-05-01 08:10] VITALS: BP 140/89; PULSE 91; RESP 18; TEMP 97.6; O2SAT 98
[2023-05-01] MEDS: DOCUSATE SODIUM 250 MG CAPSULE PO SCH ×2 (08:32→16:48)
[2023-05-01] MEDS: FLUoxetine HCL 20 MG CAPSULE PO SCH (08:33)
[2023-05-01] MEDS: AmLODIPine BESYLATE 5 MG TABLET PO SCH (08:33)
[2023-05-01] MEDS: TRIHEXYPHENIDYL HCL 2 MG TABLET PO SCH ×3 (08:33→16:48)
[2023-05-01] MEDS: OMEGA-3/DHA/EPA/FISH OIL 1,000 MG CAPSULE PO SCH (08:33)
[2023-05-01] MEDS: LISINOPRIL 10 MG TABLET PO SCH (08:33)
[2023-05-01] MEDS: GABAPENTIN 300 MG CAPSULE PO SCH ×3 (08:33→16:49)
[2023-05-01 20:12] VITALS: BP 107/72; PULSE 83; RESP 17; TEMP 98.3; O2SAT 96
[2023-05-01] MEDS: ATORVASTATIN CALCIUM 20 MG TABLET PO SCH (20:35)
[2023-05-01] MEDS: MIRTAZAPINE 15 MG TABLET PO SCH (20:35)
[2023-05-01] MEDS: MELATONIN 5 MG TABLET PO SCH (20:35)
[2023-05-01] MEDS: GABAPENTIN 400 MG CAPSULE PO SCH (20:35)
[2023-05-01] MEDS: OLANZapine 5 MG RAPDIS TABLET PO SCH (20:35)
[2023-05-02] MEDS: LITHIUM CARBONATE 300 MG CAPSULE PO SCH ×3 (06:29→16:11)
[2023-05-02] MEDS: OMEGA-3/DHA/EPA/FISH OIL 1,000 MG CAPSULE PO SCH (08:15)
[2023-05-02] MEDS: DOCUSATE SODIUM 250 MG CAPSULE PO SCH ×2 (08:15→16:42)
[2023-05-02] MEDS: LISINOPRIL 10 MG TABLET PO SCH (08:16)
[2023-05-02] MEDS: TRIHEXYPHENIDYL HCL 2 MG TABLET PO SCH ×3 (08:17→16:11)
[2023-05-02] MEDS: GABAPENTIN 300 MG CAPSULE PO SCH ×3 (08:17→16:12)
[2023-05-02] MEDS: FLUoxetine HCL 20 MG CAPSULE PO SCH (08:17)
[2023-05-02 08:25] VITALS: BP 121/76; PULSE 82; RESP 18; TEMP 97.8; O2SAT 96
[2023-05-02] MEDS: AmLODIPine BESYLATE 5 MG TABLET PO SCH (08:53)
[2023-05-02] MEDS: IBUPROFEN 600 MG TABLET PO PRN (17:53)
[2023-05-02] MEDS: ATORVASTATIN CALCIUM 20 MG TABLET PO SCH (20:08)
[2023-05-02] MEDS: MIRTAZAPINE 15 MG TABLET PO SCH (20:08)
[2023-05-02] MEDS: GABAPENTIN 400 MG CAPSULE PO SCH (20:08)
[2023-05-02] MEDS: OLANZapine 5 MG RAPDIS TABLET PO SCH (20:09)
[2023-05-02] MEDS: MELATONIN 5 MG TABLET PO SCH (20:13)
[2023-05-02 20:28] VITALS: BP 124/82; PULSE 75; RESP 19; TEMP 98.2; O2SAT 99
[2023-05-03] MEDS: LITHIUM CARBONATE 300 MG CAPSULE PO SCH ×3 (06:28→16:58)
[2023-05-03 08:16] VITALS: BP 128/70; PULSE 73; RESP 18; TEMP 97.9; O2SAT 97
[2023-05-03] MEDS: LISINOPRIL 10 MG TABLET PO SCH (09:11)
[2023-05-03] MEDS: TRIHEXYPHENIDYL HCL 2 MG TABLET PO SCH ×3 (09:11→16:57)
[2023-05-03] MEDS: FLUoxetine HCL 20 MG CAPSULE PO SCH (09:11)
[2023-05-03] MEDS: OMEGA-3/DHA/EPA/FISH OIL 1,000 MG CAPSULE PO SCH (09:11)
[2023-05-03] MEDS: DOCUSATE SODIUM 250 MG CAPSULE PO SCH ×2 (09:11→16:57)
[2023-05-03] MEDS: GABAPENTIN 300 MG CAPSULE PO SCH ×3 (09:12→16:58)
[2023-05-03] MEDS: AmLODIPine BESYLATE 5 MG TABLET PO SCH (09:12)
[2023-05-03 17:34] VITALS: RESP 18; O2SAT 97
[2023-05-03] MEDS: IBUPROFEN 600 MG TABLET PO PRN (17:34)
[2023-05-03 18:34] VITALS: RESP 18; O2SAT 97
[2023-05-03] MEDS: GABAPENTIN 400 MG CAPSULE PO SCH (20:31)
[2023-05-03] MEDS: MIRTAZAPINE 15 MG TABLET PO SCH (20:31)
[2023-05-03] MEDS: ATORVASTATIN CALCIUM 20 MG TABLET PO SCH (20:31)
[2023-05-03] MEDS: MELATONIN 5 MG TABLET PO SCH (20:32)
[2023-05-03] MEDS: OLANZapine 5 MG RAPDIS TABLET PO SCH (20:32)
[2023-05-03 22:01] VITALS: PULSE 18; RESP 17
[2023-05-03 22:04] VITALS: TEMP 98
[2023-05-04] MEDS: LITHIUM CARBONATE 300 MG CAPSULE PO SCH ×3 (06:44→16:45)
[2023-05-04 08:39] VITALS: BP 110/77; PULSE 64; RESP 17; TEMP 98.1; O2SAT 97
[2023-05-04] MEDS: TRIHEXYPHENIDYL HCL 2 MG TABLET PO SCH ×3 (08:59→16:44)
[2023-05-04] MEDS: DOCUSATE SODIUM 250 MG CAPSULE PO SCH ×2 (08:59→16:45)
[2023-05-04] MEDS: AmLODIPine BESYLATE 5 MG TABLET PO SCH (09:02)
[2023-05-04] MEDS: OMEGA-3/DHA/EPA/FISH OIL 1,000 MG CAPSULE PO SCH (09:02)
[2023-05-04] MEDS: LISINOPRIL 10 MG TABLET PO SCH (09:02)
[2023-05-04] MEDS: GABAPENTIN 300 MG CAPSULE PO SCH ×3 (09:02→16:44)
[2023-05-04] MEDS: FLUoxetine HCL 20 MG CAPSULE PO SCH (09:02)
[2023-05-04 20:30] VITALS: BP 135/80; PULSE 75; RESP 18; TEMP 98.3; O2SAT 96
[2023-05-04] MEDS: MIRTAZAPINE 15 MG TABLET PO SCH (20:52)
[2023-05-04] MEDS: OLANZapine 5 MG RAPDIS TABLET PO SCH (20:52)
[2023-05-04] MEDS: GABAPENTIN 400 MG CAPSULE PO SCH (20:52)
[2023-05-04] MEDS: MELATONIN 5 MG TABLET PO SCH (20:53)
[2023-05-04] MEDS: ATORVASTATIN CALCIUM 20 MG TABLET PO SCH (20:53)
[2023-05-05] MEDS: LITHIUM CARBONATE 300 MG CAPSULE PO SCH ×3 (06:12→16:48)
[2023-05-05 08:30] VITALS: BP 140/70; PULSE 83; RESP 18; TEMP 96; O2SAT 95
[2023-05-05] MEDS: TRIHEXYPHENIDYL HCL 2 MG TABLET PO SCH ×3 (08:43→16:48)
[2023-05-05] MEDS: GABAPENTIN 300 MG CAPSULE PO SCH ×3 (08:43→16:48)
[2023-05-05] MEDS: LISINOPRIL 10 MG TABLET PO SCH (08:43)
[2023-05-05] MEDS: FLUoxetine HCL 20 MG CAPSULE PO SCH (08:43)
[2023-05-05] MEDS: OMEGA-3/DHA/EPA/FISH OIL 1,000 MG CAPSULE PO SCH (08:43)
[2023-05-05] MEDS: AmLODIPine BESYLATE 5 MG TABLET PO SCH (08:43)
[2023-05-05] MEDS: DOCUSATE SODIUM 250 MG CAPSULE PO SCH ×2 (08:43→16:48)
[2023-05-05 18:33] VITALS: RESP 18; O2SAT 95
[2023-05-05] MEDS: IBUPROFEN 600 MG TABLET PO PRN (18:33)
[2023-05-05 19:33] VITALS: RESP 18
[2023-05-05 20:08] VITALS: BP 138/78; PULSE 72; RESP 18; TEMP 97.8; O2SAT 96
[2023-05-05] MEDS: OLANZapine 5 MG RAPDIS TABLET PO SCH (21:00)
[2023-05-05] MEDS: GABAPENTIN 400 MG CAPSULE PO SCH (21:01)
[2023-05-05] MEDS: ATORVASTATIN CALCIUM 20 MG TABLET PO SCH (21:01)
[2023-05-05] MEDS: MIRTAZAPINE 15 MG TABLET PO SCH (21:01)
[2023-05-05] MEDS: MELATONIN 5 MG TABLET PO SCH (21:01)
[2023-05-06] MEDS: LITHIUM CARBONATE 300 MG CAPSULE PO SCH ×3 (06:49→16:17)
[2023-05-06 08:17] VITALS: BP 126/87; PULSE 65; RESP 17; TEMP 97.7; O2SAT 96
[2023-05-06] MEDS: FLUoxetine HCL 20 MG CAPSULE PO SCH (08:21)
[2023-05-06] MEDS: OMEGA-3/DHA/EPA/FISH OIL 1,000 MG CAPSULE PO SCH (08:21)
[2023-05-06] MEDS: DOCUSATE SODIUM 250 MG CAPSULE PO SCH ×2 (08:21→16:17)
[2023-05-06] MEDS: LISINOPRIL 10 MG TABLET PO SCH (08:21)
[2023-05-06] MEDS: GABAPENTIN 300 MG CAPSULE PO SCH ×3 (08:21→16:17)
[2023-05-06] MEDS: AmLODIPine BESYLATE 5 MG TABLET PO SCH (08:21)
[2023-05-06] MEDS: TRIHEXYPHENIDYL HCL 2 MG TABLET PO SCH ×3 (08:22→16:17)
[2023-05-06] MEDS: GABAPENTIN 400 MG CAPSULE PO SCH (20:03)
[2023-05-06] MEDS: OLANZapine 5 MG RAPDIS TABLET PO SCH (20:03)
[2023-05-06] MEDS: MIRTAZAPINE 15 MG TABLET PO SCH (20:03)
[2023-05-06] MEDS: ATORVASTATIN CALCIUM 20 MG TABLET PO SCH (20:03)
[2023-05-06] MEDS: MELATONIN 5 MG TABLET PO SCH (20:03)
[2023-05-06 20:39] VITALS: BP 144/60; PULSE 74; RESP 19; TEMP 98; O2SAT 98
[2023-05-07] MEDS: LITHIUM CARBONATE 300 MG CAPSULE PO SCH ×3 (06:25→16:45)
[2023-05-07 08:14] VITALS: BP 141/90; PULSE 76; RESP 18; TEMP 97.8; O2SAT 94
[2023-05-07] MEDS: FLUoxetine HCL 20 MG CAPSULE PO SCH (08:52)
[2023-05-07] MEDS: TRIHEXYPHENIDYL HCL 2 MG TABLET PO SCH ×3 (08:52→16:45)
[2023-05-07] MEDS: OMEGA-3/DHA/EPA/FISH OIL 1,000 MG CAPSULE PO SCH (08:53)
[2023-05-07] MEDS: LISINOPRIL 10 MG TABLET PO SCH (08:53)
[2023-05-07] MEDS: AmLODIPine BESYLATE 5 MG TABLET PO SCH (08:53)
[2023-05-07] MEDS: DOCUSATE SODIUM 250 MG CAPSULE PO SCH ×2 (08:53→16:45)
[2023-05-07] MEDS: GABAPENTIN 300 MG CAPSULE PO SCH ×3 (08:53→16:45)
[2023-05-07 20:23] VITALS: BP 116/81; PULSE 71; RESP 18; TEMP 98.1; O2SAT 97
[2023-05-07] MEDS: GABAPENTIN 400 MG CAPSULE PO SCH (20:42)
[2023-05-07] MEDS: ATORVASTATIN CALCIUM 20 MG TABLET PO SCH (20:43)
[2023-05-07] MEDS: OLANZapine 5 MG RAPDIS TABLET PO SCH (20:43)
[2023-05-07] MEDS: MIRTAZAPINE 15 MG TABLET PO SCH (20:43)
[2023-05-07] MEDS: MELATONIN 5 MG TABLET PO SCH (20:44)
[2023-05-08] MEDS: LITHIUM CARBONATE 300 MG CAPSULE PO SCH ×3 (06:19→17:14)
[2023-05-08 08:26] VITALS: BP 142/81; PULSE 82; RESP 18; TEMP 97.6; O2SAT 96
[2023-05-08] MEDS: TRIHEXYPHENIDYL HCL 2 MG TABLET PO SCH ×3 (09:04→17:14)
[2023-05-08] MEDS: DOCUSATE SODIUM 250 MG CAPSULE PO SCH ×2 (09:04→17:14)
[2023-05-08] MEDS: LISINOPRIL 10 MG TABLET PO SCH (09:04)
[2023-05-08] MEDS: AmLODIPine BESYLATE 5 MG TABLET PO SCH (09:05)
[2023-05-08] MEDS: GABAPENTIN 300 MG CAPSULE PO SCH ×3 (09:05→17:14)
[2023-05-08] MEDS: FLUoxetine HCL 20 MG CAPSULE PO SCH (09:05)
[2023-05-08] MEDS: OMEGA-3/DHA/EPA/FISH OIL 1,000 MG CAPSULE PO SCH (09:05)
[2023-05-08 20:00] VITALS: BP 139/84; PULSE 75; RESP 18; TEMP 97.8
[2023-05-08 20:01] VITALS: BP 139/75; PULSE 70; RESP 19; TEMP 97.5; O2SAT 98
[2023-05-08] MEDS: MELATONIN 5 MG TABLET PO SCH (21:34)
[2023-05-08] MEDS: GABAPENTIN 400 MG CAPSULE PO SCH (21:35)
[2023-05-08] MEDS: OLANZapine 5 MG RAPDIS TABLET PO SCH (21:35)
[2023-05-08] MEDS: ATORVASTATIN CALCIUM 20 MG TABLET PO SCH (21:35)
[2023-05-08] MEDS: MIRTAZAPINE 15 MG TABLET PO SCH (21:36)
[2023-05-08 22:15] VITALS: BP 129/83; PULSE 79; RESP 18; TEMP 97.8; O2SAT 97
[2023-05-09] MEDS: LITHIUM CARBONATE 300 MG CAPSULE PO SCH ×3 (06:48→15:52)
[2023-05-09 08:18] VITALS: BP 116/74; PULSE 77; RESP 17; TEMP 98.2; O2SAT 98
[2023-05-09] MEDS: TRIHEXYPHENIDYL HCL 2 MG TABLET PO SCH ×3 (08:20→15:51)
[2023-05-09] MEDS: DOCUSATE SODIUM 250 MG CAPSULE PO SCH ×2 (08:20→15:51)
[2023-05-09] MEDS: GABAPENTIN 300 MG CAPSULE PO SCH ×3 (08:21→15:51)
[2023-05-09] MEDS: OMEGA-3/DHA/EPA/FISH OIL 1,000 MG CAPSULE PO SCH (08:21)
[2023-05-09] MEDS: FLUoxetine HCL 20 MG CAPSULE PO SCH (08:21)
[2023-05-09] MEDS: LISINOPRIL 10 MG TABLET PO SCH (08:22)
[2023-05-09] MEDS: AmLODIPine BESYLATE 5 MG TABLET PO SCH (08:22)
[2023-05-09 20:26] VITALS: BP 101/67; PULSE 68; RESP 17; TEMP 98.3; O2SAT 98
[2023-05-09] MEDS: ATORVASTATIN CALCIUM 20 MG TABLET PO SCH (21:15)
[2023-05-09] MEDS: MIRTAZAPINE 15 MG TABLET PO SCH (21:15)
[2023-05-09] MEDS: MELATONIN 5 MG TABLET PO SCH (21:15)
[2023-05-09] MEDS: GABAPENTIN 400 MG CAPSULE PO SCH (21:22)
[2023-05-09] MEDS: OLANZapine 5 MG RAPDIS TABLET PO SCH (21:23)
[2023-05-10] MEDS: LITHIUM CARBONATE 300 MG CAPSULE PO SCH ×3 (06:59→17:05)
[2023-05-10 08:36] VITALS: BP 135/79; PULSE 75; RESP 17; TEMP 98.6; O2SAT 97
[2023-05-10] MEDS: FLUoxetine HCL 20 MG CAPSULE PO SCH (09:16)
[2023-05-10] MEDS: TRIHEXYPHENIDYL HCL 2 MG TABLET PO SCH ×3 (09:16→17:05)
[2023-05-10] MEDS: GABAPENTIN 300 MG CAPSULE PO SCH ×3 (09:16→17:05)
[2023-05-10] MEDS: LISINOPRIL 10 MG TABLET PO SCH (09:16)
[2023-05-10] MEDS: OMEGA-3/DHA/EPA/FISH OIL 1,000 MG CAPSULE PO SCH (09:17)
[2023-05-10] MEDS: DOCUSATE SODIUM 250 MG CAPSULE PO SCH ×2 (09:17→17:05)
[2023-05-10] MEDS: AmLODIPine BESYLATE 5 MG TABLET PO SCH (09:17)
[2023-05-10] MEDS: OLANZapine 5 MG RAPDIS TABLET PO SCH (20:54)
[2023-05-10] MEDS: ATORVASTATIN CALCIUM 20 MG TABLET PO SCH (20:54)
[2023-05-10] MEDS: MIRTAZAPINE 15 MG TABLET PO SCH (20:54)
[2023-05-10] MEDS: GABAPENTIN 400 MG CAPSULE PO SCH (20:54)
[2023-05-10] MEDS: MELATONIN 5 MG TABLET PO SCH (20:55)
[2023-05-11] MEDS: LITHIUM CARBONATE 300 MG CAPSULE PO SCH ×3 (06:46→16:51)
[2023-05-11] MEDS: GABAPENTIN 300 MG CAPSULE PO SCH ×3 (08:41→16:51)
[2023-05-11] MEDS: TRIHEXYPHENIDYL HCL 2 MG TABLET PO SCH ×3 (08:41→16:51)
[2023-05-11] MEDS: AmLODIPine BESYLATE 5 MG TABLET PO SCH (08:41)
[2023-05-11] MEDS: FLUoxetine HCL 20 MG CAPSULE PO SCH (08:41)
[2023-05-11] MEDS: DOCUSATE SODIUM 250 MG CAPSULE PO SCH ×2 (08:41→16:51)
[2023-05-11] MEDS: LISINOPRIL 10 MG TABLET PO SCH (08:41)
[2023-05-11] MEDS: OMEGA-3/DHA/EPA/FISH OIL 1,000 MG CAPSULE PO SCH (08:42)
[2023-05-11 08:48] VITALS: BP 130/71; PULSE 87; RESP 19; TEMP 97.6; O2SAT 95
[2023-05-11 20:00] VITALS: BP 144/95; PULSE 82; RESP 18; TEMP 97.7; O2SAT 95
[2023-05-11] MEDS: MIRTAZAPINE 15 MG TABLET PO SCH (20:23)
[2023-05-11] MEDS: OLANZapine 5 MG RAPDIS TABLET PO SCH (20:23)
[2023-05-11] MEDS: GABAPENTIN 400 MG CAPSULE PO SCH (20:23)
[2023-05-11] MEDS: ATORVASTATIN CALCIUM 20 MG TABLET PO SCH (20:23)
[2023-05-11] MEDS: MELATONIN 5 MG TABLET PO SCH (20:23)
[2023-05-12] MEDS: LITHIUM CARBONATE 300 MG CAPSULE PO SCH ×3 (06:49→16:03)
[2023-05-12] MEDS: FLUoxetine HCL 20 MG CAPSULE PO SCH (08:38)
[2023-05-12] MEDS: DOCUSATE SODIUM 250 MG CAPSULE PO SCH ×2 (08:38→16:03)
[2023-05-12] MEDS: OMEGA-3/DHA/EPA/FISH OIL 1,000 MG CAPSULE PO SCH (08:39)
[2023-05-12] MEDS: LISINOPRIL 10 MG TABLET PO SCH (08:39)
[2023-05-12] MEDS: GABAPENTIN 300 MG CAPSULE PO SCH ×3 (08:39→16:03)
[2023-05-12] MEDS: AmLODIPine BESYLATE 5 MG TABLET PO SCH (08:39)
[2023-05-12] MEDS: TRIHEXYPHENIDYL HCL 2 MG TABLET PO SCH ×3 (08:39→16:03)
[2023-05-12 14:12] VITALS: BP 139/68; PULSE 73; RESP 18; TEMP 97.5; O2SAT 97
[2023-05-12] MEDS: OLANZapine 5 MG RAPDIS TABLET PO SCH (20:33)
[2023-05-12] MEDS: ATORVASTATIN CALCIUM 20 MG TABLET PO SCH (20:33)
[2023-05-12] MEDS: GABAPENTIN 400 MG CAPSULE PO SCH (20:33)
[2023-05-12] MEDS: MIRTAZAPINE 15 MG TABLET PO SCH (20:33)
[2023-05-12 21:09] VITALS: RESP 18
[2023-05-12] MEDS: MELATONIN 5 MG TABLET PO SCH (21:18)
[2023-05-13] MEDS: LITHIUM CARBONATE 300 MG CAPSULE PO SCH ×3 (06:45→16:52)
[2023-05-13 09:00] VITALS: BP 121/79; PULSE 89; RESP 18; TEMP 97.7
[2023-05-13] MEDS: FLUoxetine HCL 20 MG CAPSULE PO SCH (09:01)
[2023-05-13] MEDS: DOCUSATE SODIUM 250 MG CAPSULE PO SCH ×2 (09:01→16:51)
[2023-05-13] MEDS: GABAPENTIN 300 MG CAPSULE PO SCH ×3 (09:01→16:51)
[2023-05-13] MEDS: AmLODIPine BESYLATE 5 MG TABLET PO SCH (09:01)
[2023-05-13] MEDS: TRIHEXYPHENIDYL HCL 2 MG TABLET PO SCH ×3 (09:01→16:51)
[2023-05-13] MEDS: OMEGA-3/DHA/EPA/FISH OIL 1,000 MG CAPSULE PO SCH (09:01)
[2023-05-13] MEDS: LISINOPRIL 10 MG TABLET PO SCH (09:02)
[2023-05-13 09:18] VITALS: BP 112/79; PULSE 89; RESP 18; TEMP 97.7; O2SAT 99
[2023-05-13 09:29] VITALS: RESP 18
[2023-05-13] MEDS: IBUPROFEN 600 MG TABLET PO PRN (09:29)
[2023-05-13 10:29] VITALS: RESP 18
[2023-05-13 20:07] VITALS: BP 124/68; PULSE 71; RESP 18; TEMP 97.7; O2SAT 98
[2023-05-13] MEDS: MELATONIN 5 MG TABLET PO SCH (20:37)
[2023-05-13] MEDS: ATORVASTATIN CALCIUM 20 MG TABLET PO SCH (20:37)
[2023-05-13] MEDS: GABAPENTIN 400 MG CAPSULE PO SCH (20:37)
[2023-05-13] MEDS: OLANZapine 5 MG RAPDIS TABLET PO SCH (20:38)
[2023-05-13] MEDS: MIRTAZAPINE 15 MG TABLET PO SCH (20:38)
[2023-05-14] MEDS: LITHIUM CARBONATE 300 MG CAPSULE PO SCH ×3 (06:19→16:44)
[2023-05-14 08:32] VITALS: BP 142/80; PULSE 78; RESP 18; TEMP 97.8; O2SAT 96
[2023-05-14] MEDS: TRIHEXYPHENIDYL HCL 2 MG TABLET PO SCH ×3 (09:14→16:44)
[2023-05-14] MEDS: GABAPENTIN 300 MG CAPSULE PO SCH ×3 (09:14→16:45)
[2023-05-14] MEDS: OMEGA-3/DHA/EPA/FISH OIL 1,000 MG CAPSULE PO SCH (09:14)
[2023-05-14] MEDS: FLUoxetine HCL 20 MG CAPSULE PO SCH (09:15)
[2023-05-14] MEDS: AmLODIPine BESYLATE 5 MG TABLET PO SCH (09:15)
[2023-05-14] MEDS: DOCUSATE SODIUM 250 MG CAPSULE PO SCH ×2 (09:15→16:44)
[2023-05-14] MEDS: LISINOPRIL 10 MG TABLET PO SCH (09:15)
[2023-05-14 20:14] VITALS: BP 130/80; PULSE 80; RESP 18; TEMP 97.7; O2SAT 96
[2023-05-14] MEDS: OLANZapine 5 MG RAPDIS TABLET PO SCH (20:37)
[2023-05-14] MEDS: ATORVASTATIN CALCIUM 20 MG TABLET PO SCH (20:38)
[2023-05-14] MEDS: MIRTAZAPINE 15 MG TABLET PO SCH (20:38)
[2023-05-14] MEDS: MELATONIN 5 MG TABLET PO SCH (20:38)
[2023-05-14] MEDS: GABAPENTIN 400 MG CAPSULE PO SCH (20:38)
[2023-05-15] MEDS: LITHIUM CARBONATE 300 MG CAPSULE PO SCH ×3 (06:57→16:49)
[2023-05-15 08:05] VITALS: BP 112/85; PULSE 77; RESP 18; TEMP 97.8; O2SAT 99
[2023-05-15] MEDS: AmLODIPine BESYLATE 5 MG TABLET PO SCH (08:26)
[2023-05-15] MEDS: OMEGA-3/DHA/EPA/FISH OIL 1,000 MG CAPSULE PO SCH (08:26)
[2023-05-15] MEDS: FLUoxetine HCL 20 MG CAPSULE PO SCH (08:27)
[2023-05-15] MEDS: LISINOPRIL 10 MG TABLET PO SCH (08:27)
[2023-05-15] MEDS: DOCUSATE SODIUM 250 MG CAPSULE PO SCH ×2 (08:27→16:49)
[2023-05-15] MEDS: GABAPENTIN 300 MG CAPSULE PO SCH ×3 (08:27→16:49)
[2023-05-15] MEDS: TRIHEXYPHENIDYL HCL 2 MG TABLET PO SCH ×3 (08:27→16:49)
[2023-05-15] MEDS: MELATONIN 5 MG TABLET PO SCH (20:44)
[2023-05-15] MEDS: GABAPENTIN 400 MG CAPSULE PO SCH (20:44)
[2023-05-15] MEDS: OLANZapine 5 MG RAPDIS TABLET PO SCH (20:44)
[2023-05-15] MEDS: ATORVASTATIN CALCIUM 20 MG TABLET PO SCH (20:44)
[2023-05-15] MEDS: MIRTAZAPINE 15 MG TABLET PO SCH (20:44)
[2023-05-16] MEDS: LITHIUM CARBONATE 300 MG CAPSULE PO SCH ×3 (06:20→16:47)
[2023-05-16 08:30] VITALS: BP 138/90; PULSE 75; RESP 19; TEMP 98.6; O2SAT 96
[2023-05-16] MEDS: DOCUSATE SODIUM 250 MG CAPSULE PO SCH ×2 (08:51→16:47)
[2023-05-16] MEDS: TRIHEXYPHENIDYL HCL 2 MG TABLET PO SCH ×3 (08:51→16:47)
[2023-05-16] MEDS: OMEGA-3/DHA/EPA/FISH OIL 1,000 MG CAPSULE PO SCH (08:51)
[2023-05-16] MEDS: AmLODIPine BESYLATE 5 MG TABLET PO SCH (08:52)
[2023-05-16] MEDS: LISINOPRIL 10 MG TABLET PO SCH (08:52)
[2023-05-16] MEDS: GABAPENTIN 300 MG CAPSULE PO SCH ×3 (08:52→16:47)
[2023-05-16] MEDS: FLUoxetine HCL 20 MG CAPSULE PO SCH (08:52)
[2023-05-16] MEDS: GABAPENTIN 400 MG CAPSULE PO SCH (21:11)
[2023-05-16] MEDS: MELATONIN 5 MG TABLET PO SCH (21:11)
[2023-05-16] MEDS: MIRTAZAPINE 15 MG TABLET PO SCH (21:11)
[2023-05-16] MEDS: ATORVASTATIN CALCIUM 20 MG TABLET PO SCH (21:11)
[2023-05-16] MEDS: OLANZapine 5 MG RAPDIS TABLET PO SCH (21:11)
[2023-05-16 22:07] VITALS: BP 134/73; PULSE 68; RESP 17; TEMP 98; O2SAT 96
[2023-05-17] MEDS: LITHIUM CARBONATE 300 MG CAPSULE PO SCH ×3 (06:52→16:25)
[2023-05-17] MEDS: TRIHEXYPHENIDYL HCL 2 MG TABLET PO SCH ×3 (08:10→16:25)
[2023-05-17] MEDS: DOCUSATE SODIUM 250 MG CAPSULE PO SCH ×2 (08:10→16:26)
[2023-05-17] MEDS: OMEGA-3/DHA/EPA/FISH OIL 1,000 MG CAPSULE PO SCH (08:10)
[2023-05-17] MEDS: LISINOPRIL 10 MG TABLET PO SCH (08:11)
[2023-05-17] MEDS: FLUoxetine HCL 20 MG CAPSULE PO SCH (08:11)
[2023-05-17] MEDS: AmLODIPine BESYLATE 5 MG TABLET PO SCH (08:12)
[2023-05-17] MEDS: GABAPENTIN 300 MG CAPSULE PO SCH ×3 (08:12→16:25)
[2023-05-17 20:03] VITALS: BP 125/77; PULSE 71; RESP 17; TEMP 98; O2SAT 97
[2023-05-17] MEDS: OLANZapine 5 MG RAPDIS TABLET PO SCH (20:19)
[2023-05-17] MEDS: MELATONIN 5 MG TABLET PO SCH (20:19)
[2023-05-17] MEDS: GABAPENTIN 400 MG CAPSULE PO SCH (20:19)
[2023-05-17] MEDS: ATORVASTATIN CALCIUM 20 MG TABLET PO SCH (20:20)
[2023-05-17] MEDS: MIRTAZAPINE 15 MG TABLET PO SCH (20:20)
[2023-05-18] MEDS: LITHIUM CARBONATE 300 MG CAPSULE PO SCH ×3 (07:02→16:10)
[2023-05-18 08:13] VITALS: BP 120/78; PULSE 79; RESP 17; TEMP 98.3; O2SAT 97
[2023-05-18] MEDS: OMEGA-3/DHA/EPA/FISH OIL 1,000 MG CAPSULE PO SCH (08:21)
[2023-05-18] MEDS: DOCUSATE SODIUM 250 MG CAPSULE PO SCH ×2 (08:21→16:10)
[2023-05-18] MEDS: FLUoxetine HCL 20 MG CAPSULE PO SCH (08:21)
[2023-05-18] MEDS: GABAPENTIN 300 MG CAPSULE PO SCH ×3 (08:21→16:10)
[2023-05-18] MEDS: LISINOPRIL 10 MG TABLET PO SCH (08:22)
[2023-05-18] MEDS: TRIHEXYPHENIDYL HCL 2 MG TABLET PO SCH ×3 (08:22→16:10)
[2023-05-18] MEDS: AmLODIPine BESYLATE 5 MG TABLET PO SCH (08:23)
[2023-05-18] MEDS: IBUPROFEN 600 MG TABLET PO PRN (12:25)
[2023-05-18] MEDS: OLANZapine 5 MG RAPDIS TABLET PO SCH (20:18)
[2023-05-18] MEDS: MIRTAZAPINE 15 MG TABLET PO SCH (20:18)
[2023-05-18] MEDS: GABAPENTIN 400 MG CAPSULE PO SCH (20:19)
[2023-05-18] MEDS: ATORVASTATIN CALCIUM 20 MG TABLET PO SCH (20:19)
[2023-05-18] MEDS: MELATONIN 5 MG TABLET PO SCH (20:19)
[2023-05-18 20:58] VITALS: RESP 19
[2023-05-19] MEDS: LITHIUM CARBONATE 300 MG CAPSULE PO SCH ×3 (06:07→17:08)
[2023-05-19 08:23] VITALS: BP 122/76; PULSE 76; RESP 18; TEMP 98.8; O2SAT 98
[2023-05-19] MEDS: GABAPENTIN 300 MG CAPSULE PO SCH ×3 (08:55→17:08)
[2023-05-19] MEDS: FLUoxetine HCL 20 MG CAPSULE PO SCH (08:55)
[2023-05-19] MEDS: TRIHEXYPHENIDYL HCL 2 MG TABLET PO SCH ×3 (08:55→17:08)
[2023-05-19] MEDS: AmLODIPine BESYLATE 5 MG TABLET PO SCH (08:56)
[2023-05-19] MEDS: OMEGA-3/DHA/EPA/FISH OIL 1,000 MG CAPSULE PO SCH (08:56)
[2023-05-19] MEDS: DOCUSATE SODIUM 250 MG CAPSULE PO SCH ×2 (08:56→17:08)
[2023-05-19] MEDS: LISINOPRIL 10 MG TABLET PO SCH (08:56)
[2023-05-19 12:30] VITALS: RESP 18
[2023-05-19] MEDS: IBUPROFEN 600 MG TABLET PO PRN (12:30)
[2023-05-19 13:30] VITALS: RESP 18
[2023-05-19] MEDS: MELATONIN 5 MG TABLET PO SCH (20:30)
[2023-05-19] MEDS: ATORVASTATIN CALCIUM 20 MG TABLET PO SCH (20:30)
[2023-05-19] MEDS: OLANZapine 5 MG RAPDIS TABLET PO SCH (20:30)
[2023-05-19] MEDS: GABAPENTIN 400 MG CAPSULE PO SCH (20:30)
[2023-05-19] MEDS: MIRTAZAPINE 15 MG TABLET PO SCH (20:31)
[2023-05-19 20:39] VITALS: BP 116/69; PULSE 77; RESP 16; TEMP 97.6; O2SAT 91
[2023-05-20] MEDS: LITHIUM CARBONATE 300 MG CAPSULE PO SCH ×3 (06:23→16:05)
[2023-05-20] MEDS: TRIHEXYPHENIDYL HCL 2 MG TABLET PO SCH ×3 (09:07→16:05)
[2023-05-20] MEDS: OMEGA-3/DHA/EPA/FISH OIL 1,000 MG CAPSULE PO SCH (09:07)
[2023-05-20] MEDS: FLUoxetine HCL 20 MG CAPSULE PO SCH (09:07)
[2023-05-20] MEDS: DOCUSATE SODIUM 250 MG CAPSULE PO SCH ×2 (09:07→16:05)
[2023-05-20] MEDS: LISINOPRIL 10 MG TABLET PO SCH (09:08)
[2023-05-20] MEDS: AmLODIPine BESYLATE 5 MG TABLET PO SCH (09:08)
[2023-05-20] MEDS: GABAPENTIN 300 MG CAPSULE PO SCH ×3 (09:08→16:05)
[2023-05-20 09:31] VITALS: BP 138/89; PULSE 83; RESP 18; TEMP 98.3; O2SAT 97
[2023-05-20] MEDS: GABAPENTIN 400 MG CAPSULE PO SCH (20:17)
[2023-05-20] MEDS: MELATONIN 5 MG TABLET PO SCH (20:17)
[2023-05-20] MEDS: OLANZapine 5 MG RAPDIS TABLET PO SCH (20:17)
[2023-05-20] MEDS: ATORVASTATIN CALCIUM 20 MG TABLET PO SCH (20:17)
[2023-05-20 20:21] VITALS: BP 138/77; PULSE 82; RESP 18; TEMP 98.1; O2SAT 96
[2023-05-20] MEDS: MIRTAZAPINE 15 MG TABLET PO SCH (20:21)
[2023-05-21] MEDS: LITHIUM CARBONATE 300 MG CAPSULE PO SCH ×3 (06:35→16:07)
[2023-05-21 07:51] VITALS: BP 116/68; PULSE 81; RESP 16; TEMP 97.2; O2SAT 98
[2023-05-21 08:15] VITALS: BP 116/68; PULSE 81; RESP 16; TEMP 97.2; O2SAT 98
[2023-05-21] MEDS: TRIHEXYPHENIDYL HCL 2 MG TABLET PO SCH ×3 (08:39→16:07)
[2023-05-21] MEDS: OMEGA-3/DHA/EPA/FISH OIL 1,000 MG CAPSULE PO SCH (08:39)
[2023-05-21] MEDS: LISINOPRIL 10 MG TABLET PO SCH (08:39)
[2023-05-21] MEDS: FLUoxetine HCL 20 MG CAPSULE PO SCH (08:39)
[2023-05-21] MEDS: DOCUSATE SODIUM 250 MG CAPSULE PO SCH ×2 (08:39→16:07)
[2023-05-21] MEDS: GABAPENTIN 300 MG CAPSULE PO SCH ×3 (08:39→16:08)
[2023-05-21] MEDS: AmLODIPine BESYLATE 5 MG TABLET PO SCH (08:40)
[2023-05-21 16:20] VITALS: RESP 17
[2023-05-21] MEDS: MIRTAZAPINE 15 MG TABLET PO SCH (20:13)
[2023-05-21] MEDS: OLANZapine 5 MG RAPDIS TABLET PO SCH (20:13)
[2023-05-21] MEDS: ATORVASTATIN CALCIUM 20 MG TABLET PO SCH (20:13)
[2023-05-21] MEDS: MELATONIN 5 MG TABLET PO SCH (20:13)
[2023-05-21] MEDS: GABAPENTIN 400 MG CAPSULE PO SCH (20:13)
[2023-05-21 20:20] VITALS: RESP 17
[2023-05-22] MEDS: LITHIUM CARBONATE 300 MG CAPSULE PO SCH ×3 (06:41→17:00)
[2023-05-22 08:29] VITALS: BP 133/75; PULSE 77; RESP 19; TEMP 97.8; O2SAT 98
[2023-05-22] MEDS: TRIHEXYPHENIDYL HCL 2 MG TABLET PO SCH ×3 (09:13→17:00)
[2023-05-22] MEDS: DOCUSATE SODIUM 250 MG CAPSULE PO SCH ×2 (09:13→17:00)
[2023-05-22] MEDS: GABAPENTIN 300 MG CAPSULE PO SCH ×3 (09:13→17:00)
[2023-05-22] MEDS: OMEGA-3/DHA/EPA/FISH OIL 1,000 MG CAPSULE PO SCH (09:13)
[2023-05-22] MEDS: LISINOPRIL 10 MG TABLET PO SCH (09:14)
[2023-05-22] MEDS: FLUoxetine HCL 20 MG CAPSULE PO SCH (09:14)
[2023-05-22] MEDS: AmLODIPine BESYLATE 5 MG TABLET PO SCH (09:14)
[2023-05-22 20:05] VITALS: BP 126/78; PULSE 76; RESP 18; TEMP 98; O2SAT 96
[2023-05-22] MEDS: MELATONIN 5 MG TABLET PO SCH (20:45)
[2023-05-22] MEDS: ATORVASTATIN CALCIUM 20 MG TABLET PO SCH (20:45)
[2023-05-22] MEDS: OLANZapine 5 MG RAPDIS TABLET PO SCH (20:45)
[2023-05-22] MEDS: MIRTAZAPINE 15 MG TABLET PO SCH (20:45)
[2023-05-22] MEDS: GABAPENTIN 400 MG CAPSULE PO SCH (20:46)
[2023-05-23] MEDS: LITHIUM CARBONATE 300 MG CAPSULE PO SCH ×3 (07:02→16:45)
[2023-05-23 08:11] VITALS: RESP 17
[2023-05-23 09:31] VITALS: BP 141/80; PULSE 85; RESP 18; TEMP 97.5; O2SAT 96
[2023-05-23] MEDS: TRIHEXYPHENIDYL HCL 2 MG TABLET PO SCH ×3 (09:51→16:45)
[2023-05-23] MEDS: GABAPENTIN 300 MG CAPSULE PO SCH ×3 (09:52→16:45)
[2023-05-23] MEDS: LISINOPRIL 10 MG TABLET PO SCH (09:52)
[2023-05-23] MEDS: AmLODIPine BESYLATE 5 MG TABLET PO SCH (09:52)
[2023-05-23] MEDS: FLUoxetine HCL 20 MG CAPSULE PO SCH (09:52)
[2023-05-23] MEDS: DOCUSATE SODIUM 250 MG CAPSULE PO SCH ×2 (09:52→16:45)
[2023-05-23] MEDS: OMEGA-3/DHA/EPA/FISH OIL 1,000 MG CAPSULE PO SCH (09:52)
[2023-05-23 20:45] VITALS: RESP 17
[2023-05-23] MEDS: OLANZapine 5 MG RAPDIS TABLET PO SCH (20:54)
[2023-05-23] MEDS: MELATONIN 5 MG TABLET PO SCH (20:54)
[2023-05-23] MEDS: GABAPENTIN 400 MG CAPSULE PO SCH (20:55)
[2023-05-23] MEDS: ATORVASTATIN CALCIUM 20 MG TABLET PO SCH (20:55)
[2023-05-23] MEDS: MIRTAZAPINE 15 MG TABLET PO SCH (21:04)
[2023-05-24] MEDS: LITHIUM CARBONATE 300 MG CAPSULE PO SCH ×3 (06:14→16:01)
[2023-05-24] MEDS: DOCUSATE SODIUM 250 MG CAPSULE PO SCH ×2 (08:13→16:01)
[2023-05-24] MEDS: GABAPENTIN 300 MG CAPSULE PO SCH ×3 (08:13→16:01)
[2023-05-24] MEDS: OMEGA-3/DHA/EPA/FISH OIL 1,000 MG CAPSULE PO SCH (08:13)
[2023-05-24] MEDS: FLUoxetine HCL 20 MG CAPSULE PO SCH (08:13)
[2023-05-24] MEDS: TRIHEXYPHENIDYL HCL 2 MG TABLET PO SCH ×3 (08:13→16:01)
[2023-05-24] MEDS: LISINOPRIL 10 MG TABLET PO SCH (08:14)
[2023-05-24] MEDS: AmLODIPine BESYLATE 5 MG TABLET PO SCH (08:15)
[2023-05-24 08:33] VITALS: BP 132/67; PULSE 81; RESP 18; TEMP 97.5; O2SAT 97
[2023-05-24 20:35] VITALS: BP 130/72; PULSE 72; RESP 18; TEMP 97.6; O2SAT 95
[2023-05-24] MEDS: IBUPROFEN 600 MG TABLET PO PRN (20:50)
[2023-05-24] MEDS: MIRTAZAPINE 15 MG TABLET PO SCH (20:51)
[2023-05-24] MEDS: MELATONIN 5 MG TABLET PO SCH (20:51)
[2023-05-24] MEDS: OLANZapine 5 MG RAPDIS TABLET PO SCH (20:51)
[2023-05-24] MEDS: GABAPENTIN 400 MG CAPSULE PO SCH (20:51)
[2023-05-24] MEDS: ATORVASTATIN CALCIUM 20 MG TABLET PO SCH (20:51)
[2023-05-25] MEDS: LITHIUM CARBONATE 300 MG CAPSULE PO SCH ×3 (06:16→16:11)
[2023-05-25] MEDS: FLUoxetine HCL 20 MG CAPSULE PO SCH (08:18)
[2023-05-25] MEDS: AmLODIPine BESYLATE 5 MG TABLET PO SCH (08:19)
[2023-05-25] MEDS: GABAPENTIN 300 MG CAPSULE PO SCH ×3 (08:19→16:11)
[2023-05-25] MEDS: OMEGA-3/DHA/EPA/FISH OIL 1,000 MG CAPSULE PO SCH (08:19)
[2023-05-25] MEDS: LISINOPRIL 10 MG TABLET PO SCH (08:19)
[2023-05-25] MEDS: DOCUSATE SODIUM 250 MG CAPSULE PO SCH ×2 (08:19→16:11)
[2023-05-25] MEDS: TRIHEXYPHENIDYL HCL 2 MG TABLET PO SCH ×3 (08:19→16:11)
[2023-05-25 08:54] VITALS: BP 145/73; PULSE 85; RESP 20; TEMP 97.8; O2SAT 97
[2023-05-25] MEDS: GABAPENTIN 400 MG CAPSULE PO SCH (20:16)
[2023-05-25] MEDS: MIRTAZAPINE 15 MG TABLET PO SCH (20:16)
[2023-05-25] MEDS: MELATONIN 5 MG TABLET PO SCH (20:16)
[2023-05-25] MEDS: ATORVASTATIN CALCIUM 20 MG TABLET PO SCH (20:16)
[2023-05-25] MEDS: OLANZapine 5 MG RAPDIS TABLET PO SCH (20:16)
[2023-05-25 20:37] VITALS: BP 140/88; PULSE 82; RESP 18; TEMP 97.6; O2SAT 97
[2023-05-26] MEDS: LITHIUM CARBONATE 300 MG CAPSULE PO SCH ×3 (07:02→16:42)
[2023-05-26 08:13] VITALS: BP 140/83; PULSE 88; RESP 18; TEMP 97.9; O2SAT 95
[2023-05-26] MEDS: OMEGA-3/DHA/EPA/FISH OIL 1,000 MG CAPSULE PO SCH (08:18)
[2023-05-26] MEDS: DOCUSATE SODIUM 250 MG CAPSULE PO SCH ×2 (08:19→16:42)
[2023-05-26] MEDS: AmLODIPine BESYLATE 5 MG TABLET PO SCH (08:19)
[2023-05-26] MEDS: TRIHEXYPHENIDYL HCL 2 MG TABLET PO SCH ×3 (08:19→16:42)
[2023-05-26] MEDS: LISINOPRIL 10 MG TABLET PO SCH (08:19)
[2023-05-26] MEDS: GABAPENTIN 300 MG CAPSULE PO SCH ×3 (08:19→16:42)
[2023-05-26] MEDS: FLUoxetine HCL 20 MG CAPSULE PO SCH (08:19)
[2023-05-26 11:44] VITALS: RESP 18; O2SAT 96
[2023-05-26] MEDS: IBUPROFEN 600 MG TABLET PO PRN (11:44)
[2023-05-26 12:44] VITALS: RESP 18; O2SAT 96
[2023-05-26] MEDS: OLANZapine 5 MG RAPDIS TABLET PO SCH (21:17)
[2023-05-26] MEDS: GABAPENTIN 400 MG CAPSULE PO SCH (21:19)
[2023-05-26] MEDS: MELATONIN 5 MG TABLET PO SCH (21:19)
[2023-05-26] MEDS: MIRTAZAPINE 15 MG TABLET PO SCH (21:19)
[2023-05-26] MEDS: ATORVASTATIN CALCIUM 20 MG TABLET PO SCH (21:19)
[2023-05-26 23:59] VITALS: RESP 18
[2023-05-27] MEDS: LITHIUM CARBONATE 300 MG CAPSULE PO SCH ×3 (07:20→16:05)
[2023-05-27] MEDS: DOCUSATE SODIUM 250 MG CAPSULE PO SCH ×2 (08:20→16:05)
[2023-05-27] MEDS: FLUoxetine HCL 20 MG CAPSULE PO SCH (08:20)
[2023-05-27] MEDS: AmLODIPine BESYLATE 5 MG TABLET PO SCH (08:20)
[2023-05-27] MEDS: GABAPENTIN 300 MG CAPSULE PO SCH ×3 (08:20→16:06)
[2023-05-27] MEDS: LISINOPRIL 10 MG TABLET PO SCH (08:20)
[2023-05-27] MEDS: TRIHEXYPHENIDYL HCL 2 MG TABLET PO SCH ×3 (08:20→16:06)
[2023-05-27] MEDS: OMEGA-3/DHA/EPA/FISH OIL 1,000 MG CAPSULE PO SCH (08:21)
[2023-05-27 10:05] VITALS: BP 144/84; PULSE 90; RESP 17; TEMP 98; O2SAT 98
[2023-05-27 20:15] VITALS: BP 134/82; PULSE 95; RESP 18; TEMP 97.9; O2SAT 97
[2023-05-27] MEDS: GABAPENTIN 400 MG CAPSULE PO SCH (20:20)
[2023-05-27] MEDS: ATORVASTATIN CALCIUM 20 MG TABLET PO SCH (20:20)
[2023-05-27] MEDS: MIRTAZAPINE 15 MG TABLET PO SCH (20:20)
[2023-05-27] MEDS: OLANZapine 5 MG RAPDIS TABLET PO SCH (20:20)
[2023-05-27] MEDS: MELATONIN 5 MG TABLET PO SCH (20:20)
[2023-05-28] MEDS: LITHIUM CARBONATE 300 MG CAPSULE PO SCH ×3 (06:10→16:02)
[2023-05-28 08:11] VITALS: BP 128/75; PULSE 74; RESP 19; TEMP 97.8; O2SAT 98
[2023-05-28] MEDS: OMEGA-3/DHA/EPA/FISH OIL 1,000 MG CAPSULE PO SCH (08:41)
[2023-05-28] MEDS: DOCUSATE SODIUM 250 MG CAPSULE PO SCH ×2 (08:41→16:03)
[2023-05-28] MEDS: GABAPENTIN 300 MG CAPSULE PO SCH ×3 (08:41→16:03)
[2023-05-28] MEDS: FLUoxetine HCL 20 MG CAPSULE PO SCH (08:41)
[2023-05-28] MEDS: TRIHEXYPHENIDYL HCL 2 MG TABLET PO SCH ×3 (08:41→16:02)
[2023-05-28] MEDS: LISINOPRIL 10 MG TABLET PO SCH (08:41)
[2023-05-28] MEDS: AmLODIPine BESYLATE 5 MG TABLET PO SCH (08:41)
[2023-05-28 12:39] VITALS: RESP 19; O2SAT 98
[2023-05-28] MEDS: IBUPROFEN 600 MG TABLET PO PRN (12:39)
[2023-05-28 13:39] VITALS: RESP 18; O2SAT 98
[2023-05-28 20:01] VITALS: BP 125/83; PULSE 85; RESP 18; TEMP 97.9
[2023-05-28] MEDS: OLANZapine 5 MG RAPDIS TABLET PO SCH (20:05)
[2023-05-28] MEDS: MIRTAZAPINE 15 MG TABLET PO SCH (20:05)
[2023-05-28] MEDS: GABAPENTIN 400 MG CAPSULE PO SCH (20:06)
[2023-05-28] MEDS: MELATONIN 5 MG TABLET PO SCH (20:06)
[2023-05-28] MEDS: ATORVASTATIN CALCIUM 20 MG TABLET PO SCH (20:06)
[2023-05-29] MEDS: LITHIUM CARBONATE 300 MG CAPSULE PO SCH ×3 (06:36→16:15)
[2023-05-29 08:11] VITALS: BP 120/92; PULSE 84; RESP 18; TEMP 97.8; O2SAT 97
[2023-05-29] MEDS: GABAPENTIN 300 MG CAPSULE PO SCH ×3 (08:32→16:15)
[2023-05-29] MEDS: AmLODIPine BESYLATE 5 MG TABLET PO SCH (08:32)
[2023-05-29] MEDS: TRIHEXYPHENIDYL HCL 2 MG TABLET PO SCH ×3 (08:32→16:15)
[2023-05-29] MEDS: FLUoxetine HCL 20 MG CAPSULE PO SCH (08:32)
[2023-05-29] MEDS: DOCUSATE SODIUM 250 MG CAPSULE PO SCH ×2 (08:32→16:15)
[2023-05-29] MEDS: LISINOPRIL 10 MG TABLET PO SCH (08:32)
[2023-05-29] MEDS: OMEGA-3/DHA/EPA/FISH OIL 1,000 MG CAPSULE PO SCH (08:33)
[2023-05-29] MEDS: IBUPROFEN 600 MG TABLET PO PRN (12:07)
[2023-05-29] MEDS: MELATONIN 5 MG TABLET PO SCH (20:06)
[2023-05-29] MEDS: ATORVASTATIN CALCIUM 20 MG TABLET PO SCH (20:06)
[2023-05-29] MEDS: GABAPENTIN 400 MG CAPSULE PO SCH (20:06)
[2023-05-29] MEDS: MIRTAZAPINE 15 MG TABLET PO SCH (20:07)
[2023-05-29] MEDS: OLANZapine 5 MG RAPDIS TABLET PO SCH (20:07)
[2023-05-29 20:11] VITALS: BP 135/68; PULSE 85; RESP 20; TEMP 98.6; O2SAT 98
[2023-05-30] MEDS: LITHIUM CARBONATE 300 MG CAPSULE PO SCH ×3 (06:22→16:15)
[2023-05-30 08:16] VITALS: BP 146/77; PULSE 79; RESP 19; TEMP 97.7; O2SAT 98
[2023-05-30] MEDS: DOCUSATE SODIUM 250 MG CAPSULE PO SCH ×2 (08:16→16:15)
[2023-05-30] MEDS: FLUoxetine HCL 20 MG CAPSULE PO SCH (08:16)
[2023-05-30] MEDS: TRIHEXYPHENIDYL HCL 2 MG TABLET PO SCH ×3 (08:16→16:14)
[2023-05-30] MEDS: OMEGA-3/DHA/EPA/FISH OIL 1,000 MG CAPSULE PO SCH (08:17)
[2023-05-30] MEDS: LISINOPRIL 10 MG TABLET PO SCH (08:17)
[2023-05-30] MEDS: GABAPENTIN 300 MG CAPSULE PO SCH ×3 (08:17→16:14)
[2023-05-30] MEDS: AmLODIPine BESYLATE 5 MG TABLET PO SCH (08:17)
[2023-05-30] MEDS: TraMADol HCL 50 MG TABLET PO PRN (09:52)
[2023-05-30 20:08] VITALS: BP 146/73; PULSE 78; RESP 18; TEMP 98.3; O2SAT 98
[2023-05-30] MEDS: MELATONIN 5 MG TABLET PO SCH (21:14)
[2023-05-30] MEDS: ATORVASTATIN CALCIUM 20 MG TABLET PO SCH (21:14)
[2023-05-30] MEDS: OLANZapine 5 MG RAPDIS TABLET PO SCH (21:14)
[2023-05-30] MEDS: GABAPENTIN 400 MG CAPSULE PO SCH (21:14)
[2023-05-30] MEDS: MIRTAZAPINE 15 MG TABLET PO SCH (21:15)
[2023-05-31] MEDS: LITHIUM CARBONATE 300 MG CAPSULE PO SCH ×3 (06:21→16:36)
[2023-05-31 08:16] VITALS: BP 144/86; PULSE 80; RESP 18; TEMP 97.9; O2SAT 96
[2023-05-31] MEDS: DOCUSATE SODIUM 250 MG CAPSULE PO SCH ×2 (08:57→16:36)
[2023-05-31] MEDS: TRIHEXYPHENIDYL HCL 2 MG TABLET PO SCH ×3 (08:57→16:36)
[2023-05-31] MEDS: FLUoxetine HCL 20 MG CAPSULE PO SCH (08:58)
[2023-05-31] MEDS: OMEGA-3/DHA/EPA/FISH OIL 1,000 MG CAPSULE PO SCH (08:58)
[2023-05-31] MEDS: GABAPENTIN 300 MG CAPSULE PO SCH ×3 (08:58→16:36)
[2023-05-31] MEDS: AmLODIPine BESYLATE 5 MG TABLET PO SCH (08:58)
[2023-05-31] MEDS: LISINOPRIL 10 MG TABLET PO SCH (08:58)
[2023-05-31 18:12] VITALS: RESP 18; O2SAT 96
[2023-05-31] MEDS: IBUPROFEN 600 MG TABLET PO PRN (18:12)
[2023-05-31 19:12] VITALS: RESP 18; O2SAT 96
[2023-05-31 20:18] VITALS: BP 139/83; PULSE 80; RESP 17; TEMP 97.4; O2SAT 96
[2023-05-31] MEDS: GABAPENTIN 400 MG CAPSULE PO SCH (20:19)
[2023-05-31] MEDS: ATORVASTATIN CALCIUM 20 MG TABLET PO SCH (20:19)
[2023-05-31] MEDS: MELATONIN 5 MG TABLET PO SCH (20:19)
[2023-05-31] MEDS: MIRTAZAPINE 15 MG TABLET PO SCH (20:20)
[2023-05-31] MEDS: OLANZapine 5 MG RAPDIS TABLET PO SCH (20:20)
[2023-06-01] MEDS: LITHIUM CARBONATE 300 MG CAPSULE PO SCH ×3 (06:18→16:51)
[2023-06-01] MEDS: TRIHEXYPHENIDYL HCL 2 MG TABLET PO SCH ×3 (08:30→16:51)
[2023-06-01] MEDS: OMEGA-3/DHA/EPA/FISH OIL 1,000 MG CAPSULE PO SCH (08:30)
[2023-06-01] MEDS: DOCUSATE SODIUM 250 MG CAPSULE PO SCH ×2 (08:30→16:51)
[2023-06-01] MEDS: AmLODIPine BESYLATE 5 MG TABLET PO SCH (08:31)
[2023-06-01] MEDS: FLUoxetine HCL 20 MG CAPSULE PO SCH (08:31)
[2023-06-01] MEDS: LISINOPRIL 10 MG TABLET PO SCH (08:31)
[2023-06-01] MEDS: GABAPENTIN 300 MG CAPSULE PO SCH ×3 (08:31→16:51)
[2023-06-01 08:55] VITALS: BP 139/80; PULSE 78; RESP 17; TEMP 97.7; O2SAT 96
[2023-06-01 13:13] VITALS: RESP 18; O2SAT 96
[2023-06-01] MEDS: IBUPROFEN 600 MG TABLET PO PRN (13:13)
[2023-06-01 14:13] VITALS: RESP 17; O2SAT 96
[2023-06-01 17:54] VITALS: BP 124/72; PULSE 83; RESP 18; TEMP 91; O2SAT 98
[2023-06-01 20:07] VITALS: BP 120/80; PULSE 85; RESP 18; TEMP 98; O2SAT 98
[2023-06-01] MEDS: MELATONIN 5 MG TABLET PO SCH (20:17)
[2023-06-01] MEDS: ATORVASTATIN CALCIUM 20 MG TABLET PO SCH (20:17)
[2023-06-01] MEDS: MIRTAZAPINE 15 MG TABLET PO SCH (20:17)
[2023-06-01] MEDS: OLANZapine 5 MG RAPDIS TABLET PO SCH (20:17)
[2023-06-01] MEDS: GABAPENTIN 400 MG CAPSULE PO SCH (20:17)
[2023-06-02] MEDS: LITHIUM CARBONATE 300 MG CAPSULE PO SCH ×3 (07:03→16:47)
[2023-06-02 08:14] VITALS: BP 118/79; PULSE 88; RESP 18; TEMP 98.1; O2SAT 98
[2023-06-02] MEDS: TRIHEXYPHENIDYL HCL 2 MG TABLET PO SCH ×3 (08:24→16:47)
[2023-06-02] MEDS: DOCUSATE SODIUM 250 MG CAPSULE PO SCH ×2 (08:24→16:47)
[2023-06-02] MEDS: LISINOPRIL 10 MG TABLET PO SCH (08:25)
[2023-06-02] MEDS: AmLODIPine BESYLATE 5 MG TABLET PO SCH (08:25)
[2023-06-02] MEDS: OMEGA-3/DHA/EPA/FISH OIL 1,000 MG CAPSULE PO SCH (08:25)
[2023-06-02] MEDS: GABAPENTIN 300 MG CAPSULE PO SCH ×3 (08:25→16:47)
[2023-06-02] MEDS: FLUoxetine HCL 20 MG CAPSULE PO SCH (08:25)
[2023-06-02 12:35] VITALS: RESP 18; O2SAT 98
[2023-06-02] MEDS: IBUPROFEN 600 MG TABLET PO PRN (12:35)
[2023-06-02 13:35] VITALS: RESP 17; O2SAT 98
[2023-06-02 20:01] VITALS: BP 139/68; PULSE 70; RESP 20; TEMP 98; O2SAT 98
[2023-06-02] MEDS: MELATONIN 5 MG TABLET PO SCH (20:26)
[2023-06-02] MEDS: OLANZapine 5 MG RAPDIS TABLET PO SCH (20:26)
[2023-06-02] MEDS: ATORVASTATIN CALCIUM 20 MG TABLET PO SCH (20:26)
[2023-06-02] MEDS: MIRTAZAPINE 15 MG TABLET PO SCH (20:27)
[2023-06-02] MEDS: GABAPENTIN 400 MG CAPSULE PO SCH (20:27)
[2023-06-03] MEDS: LITHIUM CARBONATE 300 MG CAPSULE PO SCH ×3 (06:43→16:16)
[2023-06-03 08:16] VITALS: RESP 18
[2023-06-03] MEDS: TRIHEXYPHENIDYL HCL 2 MG TABLET PO SCH ×3 (08:16→16:16)
[2023-06-03] MEDS: LISINOPRIL 10 MG TABLET PO SCH (08:16)
[2023-06-03] MEDS: GABAPENTIN 300 MG CAPSULE PO SCH ×3 (08:16→16:16)
[2023-06-03] MEDS: OMEGA-3/DHA/EPA/FISH OIL 1,000 MG CAPSULE PO SCH (08:16)
[2023-06-03] MEDS: AmLODIPine BESYLATE 5 MG TABLET PO SCH (08:16)
[2023-06-03] MEDS: FLUoxetine HCL 20 MG CAPSULE PO SCH (08:16)
[2023-06-03] MEDS: TraMADol HCL 50 MG TABLET PO PRN (08:16)
[2023-06-03] MEDS: DOCUSATE SODIUM 250 MG CAPSULE PO SCH ×2 (08:17→16:16)
[2023-06-03 08:22] VITALS: BP 142/83; PULSE 85; RESP 18; TEMP 98; O2SAT 95
[2023-06-03 09:16] VITALS: RESP 18
[2023-06-03] MEDS: GABAPENTIN 400 MG CAPSULE PO SCH (20:08)
[2023-06-03] MEDS: MELATONIN 5 MG TABLET PO SCH (20:09)
[2023-06-03] MEDS: OLANZapine 5 MG RAPDIS TABLET PO SCH (20:09)
[2023-06-03] MEDS: MIRTAZAPINE 15 MG TABLET PO SCH (20:09)
[2023-06-03] MEDS: ATORVASTATIN CALCIUM 20 MG TABLET PO SCH (20:09)
[2023-06-04 00:16] VITALS: RESP 18; TEMP 97.5
[2023-06-04] MEDS: LITHIUM CARBONATE 300 MG CAPSULE PO SCH ×3 (07:00→16:31)
[2023-06-04 08:16] VITALS: BP 139/62; PULSE 89; RESP 19; TEMP 97.8; O2SAT 96
[2023-06-04] MEDS: DOCUSATE SODIUM 250 MG CAPSULE PO SCH ×2 (09:05→16:31)
[2023-06-04] MEDS: GABAPENTIN 300 MG CAPSULE PO SCH ×3 (09:05→16:32)
[2023-06-04] MEDS: TRIHEXYPHENIDYL HCL 2 MG TABLET PO SCH ×3 (09:05→16:32)
[2023-06-04] MEDS: FLUoxetine HCL 20 MG CAPSULE PO SCH (09:05)
[2023-06-04] MEDS: OMEGA-3/DHA/EPA/FISH OIL 1,000 MG CAPSULE PO SCH (09:05)
[2023-06-04] MEDS: LISINOPRIL 10 MG TABLET PO SCH (09:06)
[2023-06-04] MEDS: AmLODIPine BESYLATE 5 MG TABLET PO SCH (09:39)
[2023-06-04 20:17] VITALS: BP 113/64; PULSE 80; RESP 20; TEMP 97.8; O2SAT 95
[2023-06-04] MEDS: OLANZapine 5 MG RAPDIS TABLET PO SCH (21:08)
[2023-06-04] MEDS: MELATONIN 5 MG TABLET PO SCH (21:08)
[2023-06-04] MEDS: ATORVASTATIN CALCIUM 20 MG TABLET PO SCH (21:09)
[2023-06-04] MEDS: MIRTAZAPINE 15 MG TABLET PO SCH (21:09)
[2023-06-04] MEDS: GABAPENTIN 400 MG CAPSULE PO SCH (21:09)
[2023-06-05] MEDS: LITHIUM CARBONATE 300 MG CAPSULE PO SCH ×3 (06:27→16:24)
[2023-06-05] MEDS: GABAPENTIN 300 MG CAPSULE PO SCH ×3 (08:01→16:24)
[2023-06-05] MEDS: TRIHEXYPHENIDYL HCL 2 MG TABLET PO SCH ×3 (08:01→16:24)
[2023-06-05] MEDS: DOCUSATE SODIUM 250 MG CAPSULE PO SCH ×2 (08:01→16:24)
[2023-06-05] MEDS: OMEGA-3/DHA/EPA/FISH OIL 1,000 MG CAPSULE PO SCH (08:01)
[2023-06-05] MEDS: LISINOPRIL 10 MG TABLET PO SCH (08:02)
[2023-06-05] MEDS: FLUoxetine HCL 20 MG CAPSULE PO SCH (08:02)
[2023-06-05] MEDS: AmLODIPine BESYLATE 5 MG TABLET PO SCH (08:02)
[2023-06-05 08:10] VITALS: BP 137/77; PULSE 83; RESP 19; TEMP 97.9; O2SAT 94
[2023-06-05 09:30] VITALS: RESP 19
[2023-06-05] MEDS: TraMADol HCL 50 MG TABLET PO PRN (09:30)
[2023-06-05 10:30] VITALS: RESP 17
[2023-06-05] MEDS: MIRTAZAPINE 15 MG TABLET PO SCH (20:03)
[2023-06-05] MEDS: OLANZapine 5 MG RAPDIS TABLET PO SCH (20:03)
[2023-06-05] MEDS: GABAPENTIN 400 MG CAPSULE PO SCH (20:03)
[2023-06-05] MEDS: ATORVASTATIN CALCIUM 20 MG TABLET PO SCH (20:03)
[2023-06-05] MEDS: MELATONIN 5 MG TABLET PO SCH (20:03)
[2023-06-05 20:10] VITALS: BP 126/79; PULSE 78; RESP 18; TEMP 97.8; O2SAT 96
[2023-06-06 06:03] VITALS: BP 131/74; PULSE 79; RESP 18; TEMP 97.8
[2023-06-06] MEDS: IBUPROFEN 600 MG TABLET PO PRN (06:06)
[2023-06-06] MEDS: LITHIUM CARBONATE 300 MG CAPSULE PO SCH ×3 (06:06→17:12)
[2023-06-06 08:19] LABS: EOSINOPHILS % (AUTO) 0 % (1.0-6.0); HEMATOCRIT 34.9 % (36-46); HEMOGLOBIN 11.8 g/dL (12.0-16.0); LYMPHOCYTES # (AUTO) 1.2 K/uL (1.0-4.8); MEAN CORPUSCULAR HEMOGLOBIN 33.5 pg (26.0-34.0); MEAN CORPUSCULAR HGB CONC 33.9 G/dL (31.0-37.0); MEAN CORPUSCULAR VOLUME 99 fL (80-100); MONOCYTES # (AUTO) 0.4 K/uL (0.1-1.0); MONOCYTES % (AUTO) 7.2 % (2.0-9.0); NEUTROPHILS # (AUTO) 3.7 K/uL (1.8-7.7); NEUTROPHILS % (AUTO) 69.8 % (40.0-70.0); PLATELET COUNT (AUTO) 215 K/uL (150-450); RED BLOOD CELL COUNT(AUTO) 3.53 MIL/uL (4.00-5.20); RED CELL DISTRIBUTION WIDTH 13.5 % (11.5-14.5); WHITE BLOOD COUNT (AUTO) 5.4 K/uL (4.5-11.0)
[2023-06-06 08:32] LABS: URIC ACID 5.1 mg/dL (2.6-7.2)
[2023-06-06 08:34] VITALS: BP 139/70; PULSE 73; RESP 17; TEMP 97.7; O2SAT 97
[2023-06-06 08:38] LABS: ERYTHROCYTE SEDIMENTATION RATE 20 MM/HR (0-30)
[2023-06-06] MEDS: DOCUSATE SODIUM 250 MG CAPSULE PO SCH ×2 (08:43→17:11)
[2023-06-06] MEDS: OMEGA-3/DHA/EPA/FISH OIL 1,000 MG CAPSULE PO SCH (08:43)
[2023-06-06] MEDS: TRIHEXYPHENIDYL HCL 2 MG TABLET PO SCH ×3 (08:43→17:11)
[2023-06-06] MEDS: AmLODIPine BESYLATE 5 MG TABLET PO SCH (08:44)
[2023-06-06] MEDS: GABAPENTIN 300 MG CAPSULE PO SCH ×3 (08:44→17:12)
[2023-06-06] MEDS: FLUoxetine HCL 20 MG CAPSULE PO SCH (08:44)
[2023-06-06] MEDS: LISINOPRIL 10 MG TABLET PO SCH (08:44)
[2023-06-06] MEDS: DULoxetine HCL 20 MG CAPSULE PO SCH (08:44)
[2023-06-06 09:11] LABS: C-REACTIVE PROTEIN QUANT 0.3 mg/dL (0.00-0.30)
[2023-06-06] MEDS: MIRTAZAPINE 15 MG TABLET PO SCH (20:40)
[2023-06-06] MEDS: ATORVASTATIN CALCIUM 20 MG TABLET PO SCH (20:40)
[2023-06-06] MEDS: MELATONIN 5 MG TABLET PO SCH (20:40)
[2023-06-06] MEDS: OLANZapine 5 MG RAPDIS TABLET PO SCH (20:40)
[2023-06-06] MEDS: GABAPENTIN 400 MG CAPSULE PO SCH (20:41)
[2023-06-06 21:24] VITALS: BP 147/77; PULSE 18; RESP 18; TEMP 96.7; O2SAT 84
[2023-06-07] MEDS: LITHIUM CARBONATE 300 MG CAPSULE PO SCH ×3 (06:25→16:22)
[2023-06-07 08:41] VITALS: BP 139/93; PULSE 77; RESP 19; TEMP 97.7; O2SAT 96
[2023-06-07] MEDS: GABAPENTIN 300 MG CAPSULE PO SCH ×3 (09:58→16:22)
[2023-06-07] MEDS: FLUoxetine HCL 20 MG CAPSULE PO SCH (09:59)
[2023-06-07] MEDS: DULoxetine HCL 20 MG CAPSULE PO SCH (09:59)
[2023-06-07] MEDS: AmLODIPine BESYLATE 5 MG TABLET PO SCH (09:59)
[2023-06-07] MEDS: DOCUSATE SODIUM 250 MG CAPSULE PO SCH ×2 (09:59→16:22)
[2023-06-07] MEDS: LISINOPRIL 10 MG TABLET PO SCH (09:59)
[2023-06-07] MEDS: TRIHEXYPHENIDYL HCL 2 MG TABLET PO SCH ×3 (09:59→16:22)
[2023-06-07] MEDS: OMEGA-3/DHA/EPA/FISH OIL 1,000 MG CAPSULE PO SCH (10:00)
[2023-06-07] MEDS: ATORVASTATIN CALCIUM 20 MG TABLET PO SCH (20:02)
[2023-06-07] MEDS: MELATONIN 5 MG TABLET PO SCH (20:02)
[2023-06-07] MEDS: MIRTAZAPINE 15 MG TABLET PO SCH (20:02)
[2023-06-07] MEDS: OLANZapine 5 MG RAPDIS TABLET PO SCH (20:02)
[2023-06-07] MEDS: GABAPENTIN 400 MG CAPSULE PO SCH (20:02)
[2023-06-07 20:09] VITALS: BP 131/84; PULSE 94; RESP 18; TEMP 98.1; O2SAT 98
[2023-06-08] MEDS: LITHIUM CARBONATE 300 MG CAPSULE PO SCH ×3 (06:18→16:47)
[2023-06-08] MEDS: DOCUSATE SODIUM 250 MG CAPSULE PO SCH ×2 (08:10→16:47)
[2023-06-08] MEDS: AmLODIPine BESYLATE 5 MG TABLET PO SCH (08:10)
[2023-06-08] MEDS: DULoxetine HCL 20 MG CAPSULE PO SCH (08:10)
[2023-06-08] MEDS: FLUoxetine HCL 20 MG CAPSULE PO SCH (08:11)
[2023-06-08] MEDS: OMEGA-3/DHA/EPA/FISH OIL 1,000 MG CAPSULE PO SCH (08:11)
[2023-06-08] MEDS: LISINOPRIL 10 MG TABLET PO SCH (08:11)
[2023-06-08] MEDS: TRIHEXYPHENIDYL HCL 2 MG TABLET PO SCH ×3 (08:11→16:47)
[2023-06-08] MEDS: GABAPENTIN 300 MG CAPSULE PO SCH ×3 (08:11→16:47)
[2023-06-08 10:47] VITALS: BP 145/70; PULSE 94; RESP 18; TEMP 97.9; O2SAT 96
[2023-06-08] MEDS: GABAPENTIN 400 MG CAPSULE PO SCH (20:02)
[2023-06-08] MEDS: OLANZapine 5 MG RAPDIS TABLET PO SCH (20:02)
[2023-06-08] MEDS: MELATONIN 5 MG TABLET PO SCH (20:02)
[2023-06-08] MEDS: ATORVASTATIN CALCIUM 20 MG TABLET PO SCH (20:02)
[2023-06-08] MEDS: MIRTAZAPINE 15 MG TABLET PO SCH (20:02)
[2023-06-08 20:30] VITALS: BP 125/76; PULSE 76; RESP 18; TEMP 97.8; O2SAT 97
[2023-06-09] MEDS: LITHIUM CARBONATE 300 MG CAPSULE PO SCH ×3 (06:19→17:04)
[2023-06-09 08:09] VITALS: BP 140/79; PULSE 66; RESP 19; TEMP 96.8; O2SAT 100
[2023-06-09] MEDS: DOCUSATE SODIUM 250 MG CAPSULE PO SCH ×2 (08:38→17:04)
[2023-06-09] MEDS: TRIHEXYPHENIDYL HCL 2 MG TABLET PO SCH ×3 (08:38→17:04)
[2023-06-09] MEDS: DULoxetine HCL 20 MG CAPSULE PO SCH (08:39)
[2023-06-09] MEDS: LISINOPRIL 10 MG TABLET PO SCH (08:39)
[2023-06-09] MEDS: OMEGA-3/DHA/EPA/FISH OIL 1,000 MG CAPSULE PO SCH (08:39)
[2023-06-09] MEDS: GABAPENTIN 300 MG CAPSULE PO SCH ×3 (08:39→17:04)
[2023-06-09] MEDS: AmLODIPine BESYLATE 5 MG TABLET PO SCH (08:39)
[2023-06-09] MEDS: FLUoxetine HCL 20 MG CAPSULE PO SCH (08:40)
[2023-06-09 17:27] VITALS: RESP 19; O2SAT 99
[2023-06-09] MEDS: IBUPROFEN 600 MG TABLET PO PRN (17:27)
[2023-06-09 18:27] VITALS: RESP 19; O2SAT 99
[2023-06-09] MEDS: MIRTAZAPINE 15 MG TABLET PO SCH (21:17)
[2023-06-09] MEDS: GABAPENTIN 400 MG CAPSULE PO SCH (21:17)
[2023-06-09] MEDS: MELATONIN 5 MG TABLET PO SCH (21:18)
[2023-06-09] MEDS: OLANZapine 5 MG RAPDIS TABLET PO SCH (21:18)
[2023-06-09] MEDS: ATORVASTATIN CALCIUM 20 MG TABLET PO SCH (21:18)
[2023-06-09 22:06] VITALS: BP 119/71; PULSE 84; RESP 18; TEMP 98.1; O2SAT 98
[2023-06-10] MEDS: LITHIUM CARBONATE 300 MG CAPSULE PO SCH ×3 (06:01→16:02)
[2023-06-10] MEDS: OMEGA-3/DHA/EPA/FISH OIL 1,000 MG CAPSULE PO SCH (09:06)
[2023-06-10] MEDS: TRIHEXYPHENIDYL HCL 2 MG TABLET PO SCH ×3 (09:06→16:01)
[2023-06-10] MEDS: FLUoxetine HCL 20 MG CAPSULE PO SCH (09:06)
[2023-06-10] MEDS: DOCUSATE SODIUM 250 MG CAPSULE PO SCH ×2 (09:06→16:01)
[2023-06-10] MEDS: LISINOPRIL 10 MG TABLET PO SCH (09:06)
[2023-06-10] MEDS: GABAPENTIN 300 MG CAPSULE PO SCH ×3 (09:07→16:02)
[2023-06-10] MEDS: AmLODIPine BESYLATE 5 MG TABLET PO SCH (09:07)
[2023-06-10] MEDS: DULoxetine HCL 20 MG CAPSULE PO SCH (09:07)
[2023-06-10 09:29] VITALS: BP 132/74; PULSE 86; RESP 18; TEMP 98.1; O2SAT 96
[2023-06-10 20:06] VITALS: BP 122/68; PULSE 86; RESP 18; TEMP 97.9; O2SAT 96
[2023-06-10] MEDS: MIRTAZAPINE 15 MG TABLET PO SCH (20:19)
[2023-06-10] MEDS: GABAPENTIN 400 MG CAPSULE PO SCH (20:19)
[2023-06-10] MEDS: ATORVASTATIN CALCIUM 20 MG TABLET PO SCH (20:19)
[2023-06-10] MEDS: MELATONIN 5 MG TABLET PO SCH (20:19)
[2023-06-10] MEDS: OLANZapine 5 MG RAPDIS TABLET PO SCH (20:19)
[2023-06-11] MEDS: LITHIUM CARBONATE 300 MG CAPSULE PO SCH ×3 (06:11→16:49)
[2023-06-11 08:14] VITALS: BP 140/72; PULSE 92; RESP 18; TEMP 98; O2SAT 97
[2023-06-11] MEDS: OMEGA-3/DHA/EPA/FISH OIL 1,000 MG CAPSULE PO SCH (08:51)
[2023-06-11] MEDS: AmLODIPine BESYLATE 5 MG TABLET PO SCH (08:51)
[2023-06-11] MEDS: GABAPENTIN 300 MG CAPSULE PO SCH ×3 (08:51→16:49)
[2023-06-11] MEDS: TRIHEXYPHENIDYL HCL 2 MG TABLET PO SCH ×3 (08:51→16:49)
[2023-06-11] MEDS: DOCUSATE SODIUM 250 MG CAPSULE PO SCH ×2 (08:51→16:50)
[2023-06-11] MEDS: FLUoxetine HCL 20 MG CAPSULE PO SCH (08:52)
[2023-06-11] MEDS: DULoxetine HCL 20 MG CAPSULE PO SCH (08:52)
[2023-06-11] MEDS: LISINOPRIL 10 MG TABLET PO SCH (08:52)
[2023-06-11 09:08] VITALS: RESP 18; O2SAT 97
[2023-06-11] MEDS: IBUPROFEN 600 MG TABLET PO PRN (09:08)
[2023-06-11 10:08] VITALS: RESP 18; O2SAT 97
[2023-06-11] MEDS: MELATONIN 5 MG TABLET PO SCH (20:41)
[2023-06-11] MEDS: MIRTAZAPINE 15 MG TABLET PO SCH (20:41)
[2023-06-11] MEDS: GABAPENTIN 400 MG CAPSULE PO SCH (20:41)
[2023-06-11] MEDS: ATORVASTATIN CALCIUM 20 MG TABLET PO SCH (20:42)
[2023-06-11] MEDS: OLANZapine 5 MG RAPDIS TABLET PO SCH (20:42)
[2023-06-11 21:38] VITALS: BP 135/79; PULSE 83; RESP 16; TEMP 97.7; O2SAT 95
[2023-06-12] MEDS: LITHIUM CARBONATE 300 MG CAPSULE PO SCH ×3 (06:16→16:44)
[2023-06-12] MEDS: DOCUSATE SODIUM 250 MG CAPSULE PO SCH ×2 (08:13→16:44)
[2023-06-12] MEDS: DULoxetine HCL 20 MG CAPSULE PO SCH (08:13)
[2023-06-12] MEDS: TRIHEXYPHENIDYL HCL 2 MG TABLET PO SCH ×3 (08:13→16:44)
[2023-06-12] MEDS: OMEGA-3/DHA/EPA/FISH OIL 1,000 MG CAPSULE PO SCH (08:13)
[2023-06-12] MEDS: AmLODIPine BESYLATE 5 MG TABLET PO SCH (08:14)
[2023-06-12] MEDS: FLUoxetine HCL 20 MG CAPSULE PO SCH (08:14)
[2023-06-12] MEDS: LISINOPRIL 10 MG TABLET PO SCH (08:14)
[2023-06-12] MEDS: GABAPENTIN 300 MG CAPSULE PO SCH ×3 (08:14→16:44)
[2023-06-12 08:18] VITALS: BP 142/79; PULSE 84; RESP 17; TEMP 97.6; O2SAT 94
[2023-06-12 20:38] VITALS: RESP 17
[2023-06-12] MEDS: GABAPENTIN 400 MG CAPSULE PO SCH (21:42)
[2023-06-12] MEDS: MIRTAZAPINE 15 MG TABLET PO SCH (21:43)
[2023-06-12] MEDS: ATORVASTATIN CALCIUM 20 MG TABLET PO SCH (21:44)
[2023-06-12] MEDS: MELATONIN 5 MG TABLET PO SCH (21:44)
[2023-06-12] MEDS: OLANZapine 5 MG RAPDIS TABLET PO SCH (21:45)
[2023-06-13] MEDS: LITHIUM CARBONATE 300 MG CAPSULE PO SCH ×3 (06:46→16:24)
[2023-06-13 08:09] VITALS: BP 145/67; PULSE 78; RESP 18; TEMP 97.9; O2SAT 95
[2023-06-13] MEDS: TRIHEXYPHENIDYL HCL 2 MG TABLET PO SCH ×3 (08:46→16:24)
[2023-06-13] MEDS: LISINOPRIL 10 MG TABLET PO SCH (08:47)
[2023-06-13] MEDS: OMEGA-3/DHA/EPA/FISH OIL 1,000 MG CAPSULE PO SCH (08:47)
[2023-06-13] MEDS: AmLODIPine BESYLATE 5 MG TABLET PO SCH (08:47)
[2023-06-13] MEDS: DULoxetine HCL 20 MG CAPSULE PO SCH (08:47)
[2023-06-13] MEDS: GABAPENTIN 300 MG CAPSULE PO SCH ×3 (08:47→16:24)
[2023-06-13] MEDS: DOCUSATE SODIUM 250 MG CAPSULE PO SCH ×2 (08:47→16:24)
[2023-06-13] MEDS: FLUoxetine HCL 20 MG CAPSULE PO SCH (08:49)
[2023-06-13 20:14] VITALS: BP 136/86; PULSE 85; RESP 18; TEMP 97.8; O2SAT 97
[2023-06-13] MEDS: MELATONIN 5 MG TABLET PO SCH (20:45)
[2023-06-13] MEDS: ATORVASTATIN CALCIUM 20 MG TABLET PO SCH (20:45)
[2023-06-13] MEDS: GABAPENTIN 400 MG CAPSULE PO SCH (20:45)
[2023-06-13] MEDS: OLANZapine 5 MG RAPDIS TABLET PO SCH (20:45)
[2023-06-13] MEDS: MIRTAZAPINE 15 MG TABLET PO SCH (20:45)
[2023-06-14] MEDS: LITHIUM CARBONATE 300 MG CAPSULE PO SCH ×3 (06:40→16:20)
[2023-06-14] MEDS: OMEGA-3/DHA/EPA/FISH OIL 1,000 MG CAPSULE PO SCH (08:15)
[2023-06-14] MEDS: DOCUSATE SODIUM 250 MG CAPSULE PO SCH ×2 (08:15→16:20)
[2023-06-14] MEDS: TRIHEXYPHENIDYL HCL 2 MG TABLET PO SCH ×3 (08:15→16:20)
[2023-06-14] MEDS: FLUoxetine HCL 20 MG CAPSULE PO SCH (08:16)
[2023-06-14] MEDS: AmLODIPine BESYLATE 5 MG TABLET PO SCH (08:16)
[2023-06-14] MEDS: DULoxetine HCL 20 MG CAPSULE PO SCH (08:16)
[2023-06-14] MEDS: GABAPENTIN 300 MG CAPSULE PO SCH ×3 (08:16→16:20)
[2023-06-14] MEDS: LISINOPRIL 10 MG TABLET PO SCH (08:17)
[2023-06-14 10:16] VITALS: BP 134/77; PULSE 77; TEMP 96.8
[2023-06-14] MEDS: MELATONIN 5 MG TABLET PO SCH (20:13)
[2023-06-14] MEDS: ATORVASTATIN CALCIUM 20 MG TABLET PO SCH (20:13)
[2023-06-14 20:14] VITALS: BP 137/87; PULSE 68; RESP 20; TEMP 98; O2SAT 96
[2023-06-14] MEDS: GABAPENTIN 400 MG CAPSULE PO SCH (20:14)
[2023-06-14] MEDS: OLANZapine 5 MG RAPDIS TABLET PO SCH (20:14)
[2023-06-14] MEDS: MIRTAZAPINE 15 MG TABLET PO SCH (20:14)
[2023-06-15] MEDS: LITHIUM CARBONATE 300 MG CAPSULE PO SCH ×3 (06:38→16:24)
[2023-06-15 08:42] VITALS: BP 140/90; PULSE 88; RESP 19; TEMP 97.5; O2SAT 96
[2023-06-15] MEDS: AmLODIPine BESYLATE 5 MG TABLET PO SCH (08:42)
[2023-06-15] MEDS: FLUoxetine HCL 20 MG CAPSULE PO SCH (08:42)
[2023-06-15] MEDS: OMEGA-3/DHA/EPA/FISH OIL 1,000 MG CAPSULE PO SCH (08:42)
[2023-06-15] MEDS: GABAPENTIN 300 MG CAPSULE PO SCH ×3 (08:42→16:25)
[2023-06-15] MEDS: DOCUSATE SODIUM 250 MG CAPSULE PO SCH ×2 (08:43→16:24)
[2023-06-15] MEDS: DULoxetine HCL 20 MG CAPSULE PO SCH (08:43)
[2023-06-15] MEDS: LISINOPRIL 10 MG TABLET PO SCH (08:43)
[2023-06-15] MEDS: TRIHEXYPHENIDYL HCL 2 MG TABLET PO SCH ×3 (08:43→16:24)
[2023-06-15 20:07] VITALS: BP 138/88; PULSE 75; RESP 18; TEMP 97.8; O2SAT 94
[2023-06-15] MEDS: ATORVASTATIN CALCIUM 20 MG TABLET PO SCH (20:39)
[2023-06-15] MEDS: MELATONIN 5 MG TABLET PO SCH (20:39)
[2023-06-15] MEDS: GABAPENTIN 400 MG CAPSULE PO SCH (20:40)
[2023-06-15] MEDS: MIRTAZAPINE 15 MG TABLET PO SCH (20:41)
[2023-06-15] MEDS: OLANZapine 5 MG RAPDIS TABLET PO SCH (20:42)
[2023-06-16] MEDS: LITHIUM CARBONATE 300 MG CAPSULE PO SCH ×3 (06:45→16:38)
[2023-06-16 08:21] VITALS: BP 121/93; PULSE 85; RESP 19; TEMP 98.6; O2SAT 98
[2023-06-16] MEDS: TRIHEXYPHENIDYL HCL 2 MG TABLET PO SCH ×3 (08:36→16:37)
[2023-06-16] MEDS: OMEGA-3/DHA/EPA/FISH OIL 1,000 MG CAPSULE PO SCH (08:37)
[2023-06-16] MEDS: FLUoxetine HCL 20 MG CAPSULE PO SCH (08:37)
[2023-06-16] MEDS: GABAPENTIN 300 MG CAPSULE PO SCH ×3 (08:37→16:38)
[2023-06-16] MEDS: DOCUSATE SODIUM 250 MG CAPSULE PO SCH ×2 (08:37→16:38)
[2023-06-16] MEDS: LISINOPRIL 10 MG TABLET PO SCH (08:37)
[2023-06-16] MEDS: DULoxetine HCL 20 MG CAPSULE PO SCH (08:38)
[2023-06-16] MEDS: AmLODIPine BESYLATE 5 MG TABLET PO SCH (08:38)
[2023-06-16 20:16] VITALS: BP 104/80; PULSE 80; RESP 22; TEMP 98.3; O2SAT 98
[2023-06-16] MEDS: MIRTAZAPINE 15 MG TABLET PO SCH (20:21)
[2023-06-16] MEDS: MELATONIN 5 MG TABLET PO SCH (20:21)
[2023-06-16] MEDS: GABAPENTIN 400 MG CAPSULE PO SCH (20:21)
[2023-06-16] MEDS: ATORVASTATIN CALCIUM 20 MG TABLET PO SCH (20:21)
[2023-06-16] MEDS: OLANZapine 5 MG RAPDIS TABLET PO SCH (20:21)
[2023-06-17] MEDS: LITHIUM CARBONATE 300 MG CAPSULE PO SCH ×3 (06:18→16:35)
[2023-06-17 08:28] VITALS: BP 130/90; PULSE 85; RESP 18; TEMP 97.3; O2SAT 95
[2023-06-17] MEDS: OMEGA-3/DHA/EPA/FISH OIL 1,000 MG CAPSULE PO SCH (08:55)
[2023-06-17] MEDS: FLUoxetine HCL 20 MG CAPSULE PO SCH (08:55)
[2023-06-17] MEDS: LISINOPRIL 10 MG TABLET PO SCH (08:55)
[2023-06-17] MEDS: GABAPENTIN 300 MG CAPSULE PO SCH ×3 (08:55→16:35)
[2023-06-17] MEDS: TRIHEXYPHENIDYL HCL 2 MG TABLET PO SCH ×3 (08:55→16:35)
[2023-06-17] MEDS: AmLODIPine BESYLATE 5 MG TABLET PO SCH (08:56)
[2023-06-17] MEDS: DULoxetine HCL 20 MG CAPSULE PO SCH (08:56)
[2023-06-17] MEDS: DOCUSATE SODIUM 250 MG CAPSULE PO SCH ×2 (10:24→16:35)
[2023-06-17 20:05] VITALS: BP 119/69; PULSE 80; RESP 18; TEMP 97.6; O2SAT 98
[2023-06-17] MEDS: ATORVASTATIN CALCIUM 20 MG TABLET PO SCH (20:23)
[2023-06-17] MEDS: MELATONIN 5 MG TABLET PO SCH (20:23)
[2023-06-17] MEDS: OLANZapine 5 MG RAPDIS TABLET PO SCH (20:24)
[2023-06-17] MEDS: GABAPENTIN 400 MG CAPSULE PO SCH (20:24)
[2023-06-17] MEDS: MIRTAZAPINE 15 MG TABLET PO SCH (20:24)
[2023-06-18] MEDS: LITHIUM CARBONATE 300 MG CAPSULE PO SCH ×3 (06:49→17:12)
[2023-06-18 08:24] VITALS: BP 119/67; PULSE 81; RESP 19; TEMP 97.5; O2SAT 97
[2023-06-18] MEDS: DOCUSATE SODIUM 250 MG CAPSULE PO SCH ×2 (08:48→17:12)
[2023-06-18] MEDS: OMEGA-3/DHA/EPA/FISH OIL 1,000 MG CAPSULE PO SCH (08:48)
[2023-06-18] MEDS: TRIHEXYPHENIDYL HCL 2 MG TABLET PO SCH ×3 (08:48→17:12)
[2023-06-18] MEDS: AmLODIPine BESYLATE 5 MG TABLET PO SCH (08:49)
[2023-06-18] MEDS: GABAPENTIN 300 MG CAPSULE PO SCH ×3 (08:49→17:12)
[2023-06-18] MEDS: FLUoxetine HCL 20 MG CAPSULE PO SCH (08:49)
[2023-06-18] MEDS: LISINOPRIL 10 MG TABLET PO SCH (08:49)
[2023-06-18] MEDS: DULoxetine HCL 20 MG CAPSULE PO SCH (08:49)
[2023-06-18 20:27] VITALS: BP 130/91; PULSE 95; RESP 17; TEMP 97.6; O2SAT 97
[2023-06-18] MEDS: GABAPENTIN 400 MG CAPSULE PO SCH (21:46)
[2023-06-18] MEDS: OLANZapine 5 MG RAPDIS TABLET PO SCH (21:46)
[2023-06-18] MEDS: MIRTAZAPINE 15 MG TABLET PO SCH (21:46)
[2023-06-18] MEDS: MELATONIN 5 MG TABLET PO SCH (21:47)
[2023-06-18] MEDS: ATORVASTATIN CALCIUM 20 MG TABLET PO SCH (21:47)
[2023-06-19] MEDS: LITHIUM CARBONATE 300 MG CAPSULE PO SCH ×3 (06:02→16:35)
[2023-06-19] MEDS: OMEGA-3/DHA/EPA/FISH OIL 1,000 MG CAPSULE PO SCH (08:36)
[2023-06-19] MEDS: LISINOPRIL 10 MG TABLET PO SCH (08:36)
[2023-06-19 08:37] VITALS: BP 142/60; PULSE 83; RESP 16; TEMP 98; O2SAT 97
[2023-06-19] MEDS: DOCUSATE SODIUM 250 MG CAPSULE PO SCH ×2 (08:37→16:35)
[2023-06-19] MEDS: DULoxetine HCL 20 MG CAPSULE PO SCH (08:37)
[2023-06-19] MEDS: IBUPROFEN 600 MG TABLET PO PRN (08:37)
[2023-06-19] MEDS: GABAPENTIN 300 MG CAPSULE PO SCH ×3 (08:37→16:35)
[2023-06-19] MEDS: TRIHEXYPHENIDYL HCL 2 MG TABLET PO SCH ×3 (08:37→16:35)
[2023-06-19] MEDS: AmLODIPine BESYLATE 5 MG TABLET PO SCH (08:37)
[2023-06-19] MEDS: FLUoxetine HCL 20 MG CAPSULE PO SCH (08:37)
[2023-06-19 09:37] VITALS: RESP 16
[2023-06-19 20:14] VITALS: BP 128/68; PULSE 78; RESP 18; TEMP 97.8; O2SAT 96
[2023-06-19] MEDS: OLANZapine 5 MG RAPDIS TABLET PO SCH (20:33)
[2023-06-19] MEDS: MIRTAZAPINE 15 MG TABLET PO SCH (20:33)
[2023-06-19] MEDS: ATORVASTATIN CALCIUM 20 MG TABLET PO SCH (20:33)
[2023-06-19] MEDS: MELATONIN 5 MG TABLET PO SCH (20:33)
[2023-06-19] MEDS: GABAPENTIN 400 MG CAPSULE PO SCH (20:33)
[2023-06-20] MEDS: LITHIUM CARBONATE 300 MG CAPSULE PO SCH ×3 (06:26→16:02)
[2023-06-20] MEDS: TRIHEXYPHENIDYL HCL 2 MG TABLET PO SCH ×3 (09:20→16:02)
[2023-06-20] MEDS: DOCUSATE SODIUM 250 MG CAPSULE PO SCH ×2 (09:20→16:02)
[2023-06-20] MEDS: LISINOPRIL 10 MG TABLET PO SCH (09:21)
[2023-06-20] MEDS: AmLODIPine BESYLATE 5 MG TABLET PO SCH (09:21)
[2023-06-20] MEDS: DULoxetine HCL 20 MG CAPSULE PO SCH (09:21)
[2023-06-20] MEDS: OMEGA-3/DHA/EPA/FISH OIL 1,000 MG CAPSULE PO SCH (09:21)
[2023-06-20] MEDS: GABAPENTIN 300 MG CAPSULE PO SCH ×3 (09:21→16:02)
[2023-06-20] MEDS: FLUoxetine HCL 20 MG CAPSULE PO SCH (09:21)
[2023-06-20 09:50] VITALS: BP 120/74; PULSE 82; RESP 18; TEMP 97.6; O2SAT 97
[2023-06-20 11:38] VITALS: RESP 18; O2SAT 97
[2023-06-20] MEDS: IBUPROFEN 600 MG TABLET PO PRN (11:38)
[2023-06-20 12:38] VITALS: RESP 18; O2SAT 97
[2023-06-20] MEDS: MIRTAZAPINE 15 MG TABLET PO SCH (20:22)
[2023-06-20] MEDS: GABAPENTIN 400 MG CAPSULE PO SCH (20:22)
[2023-06-20] MEDS: ATORVASTATIN CALCIUM 20 MG TABLET PO SCH (20:23)
[2023-06-20] MEDS: MELATONIN 5 MG TABLET PO SCH (20:23)
[2023-06-20] MEDS: OLANZapine 5 MG RAPDIS TABLET PO SCH (20:23)
[2023-06-20 20:47] VITALS: BP 128/73; PULSE 85; RESP 17; TEMP 97.4; O2SAT 96
[2023-06-21] MEDS: LITHIUM CARBONATE 300 MG CAPSULE PO SCH ×3 (06:49→18:05)
[2023-06-21] MEDS: TRIHEXYPHENIDYL HCL 2 MG TABLET PO SCH ×3 (08:49→18:04)
[2023-06-21] MEDS: GABAPENTIN 300 MG CAPSULE PO SCH ×3 (08:50→18:04)
[2023-06-21] MEDS: OMEGA-3/DHA/EPA/FISH OIL 1,000 MG CAPSULE PO SCH (08:50)
[2023-06-21] MEDS: DULoxetine HCL 20 MG CAPSULE PO SCH (08:50)
[2023-06-21] MEDS: DOCUSATE SODIUM 250 MG CAPSULE PO SCH ×2 (08:50→18:04)
[2023-06-21] MEDS: FLUoxetine HCL 20 MG CAPSULE PO SCH (08:51)
[2023-06-21] MEDS: LISINOPRIL 10 MG TABLET PO SCH (08:51)
[2023-06-21] MEDS: AmLODIPine BESYLATE 5 MG TABLET PO SCH (08:52)
[2023-06-21 10:35] VITALS: RESP 18; O2SAT 97
[2023-06-21] MEDS: IBUPROFEN 600 MG TABLET PO PRN (10:35)
[2023-06-21 11:35] VITALS: RESP 17; O2SAT 97
[2023-06-21 13:13] VITALS: BP 128/89
[2023-06-21] MEDS: MIRTAZAPINE 15 MG TABLET PO SCH (20:06)
[2023-06-21] MEDS: OLANZapine 5 MG RAPDIS TABLET PO SCH (20:06)
[2023-06-21] MEDS: ATORVASTATIN CALCIUM 20 MG TABLET PO SCH (20:06)
[2023-06-21] MEDS: MELATONIN 5 MG TABLET PO SCH (20:07)
[2023-06-21] MEDS: GABAPENTIN 400 MG CAPSULE PO SCH (20:09)
[2023-06-21 21:45] VITALS: BP 136/72; PULSE 80; RESP 18; TEMP 98.2; O2SAT 96
[2023-06-22] MEDS: LITHIUM CARBONATE 300 MG CAPSULE PO SCH ×3 (06:18→17:04)
[2023-06-22 08:24] VITALS: BP 142/86; PULSE 75; RESP 18; TEMP 97.9; O2SAT 96
[2023-06-22] MEDS: DOCUSATE SODIUM 250 MG CAPSULE PO SCH ×2 (08:51→17:04)
[2023-06-22] MEDS: TRIHEXYPHENIDYL HCL 2 MG TABLET PO SCH ×3 (08:51→17:04)
[2023-06-22] MEDS: FLUoxetine HCL 20 MG CAPSULE PO SCH (08:51)
[2023-06-22] MEDS: DULoxetine HCL 20 MG CAPSULE PO SCH (08:52)
[2023-06-22] MEDS: OMEGA-3/DHA/EPA/FISH OIL 1,000 MG CAPSULE PO SCH (08:52)
[2023-06-22] MEDS: AmLODIPine BESYLATE 5 MG TABLET PO SCH (08:52)
[2023-06-22] MEDS: LISINOPRIL 10 MG TABLET PO SCH (08:52)
[2023-06-22] MEDS: GABAPENTIN 300 MG CAPSULE PO SCH ×3 (08:52→17:04)
[2023-06-22 12:40] VITALS: RESP 18; O2SAT 96
[2023-06-22] MEDS: IBUPROFEN 600 MG TABLET PO PRN (12:40)
[2023-06-22 13:40] VITALS: RESP 18; O2SAT 96
[2023-06-22 20:20] VITALS: BP 133/84; PULSE 78; RESP 18; TEMP 97.4; O2SAT 96
[2023-06-22] MEDS: GABAPENTIN 400 MG CAPSULE PO SCH (20:31)
[2023-06-22] MEDS: OLANZapine 5 MG RAPDIS TABLET PO SCH (20:32)
[2023-06-22] MEDS: MELATONIN 5 MG TABLET PO SCH (20:32)
[2023-06-22] MEDS: ATORVASTATIN CALCIUM 20 MG TABLET PO SCH (20:32)
[2023-06-22] MEDS: MIRTAZAPINE 15 MG TABLET PO SCH (20:32)
[2023-06-23] MEDS: LITHIUM CARBONATE 300 MG CAPSULE PO SCH ×3 (06:17→17:09)
[2023-06-23 08:06] VITALS: BP 136/76; PULSE 79; RESP 19; TEMP 97.6; O2SAT 98
[2023-06-23] MEDS: TRIHEXYPHENIDYL HCL 2 MG TABLET PO SCH ×3 (08:59→17:04)
[2023-06-23] MEDS: DOCUSATE SODIUM 250 MG CAPSULE PO SCH ×2 (08:59→17:04)
[2023-06-23] MEDS: DULoxetine HCL 20 MG CAPSULE PO SCH (08:59)
[2023-06-23] MEDS: OMEGA-3/DHA/EPA/FISH OIL 1,000 MG CAPSULE PO SCH (09:00)
[2023-06-23] MEDS: LISINOPRIL 10 MG TABLET PO SCH (09:00)
[2023-06-23] MEDS: GABAPENTIN 300 MG CAPSULE PO SCH ×3 (09:00→17:05)
[2023-06-23] MEDS: AmLODIPine BESYLATE 5 MG TABLET PO SCH (09:00)
[2023-06-23] MEDS: FLUoxetine HCL 20 MG CAPSULE PO SCH (09:00)
[2023-06-23 12:07] VITALS: RESP 18; O2SAT 98
[2023-06-23] MEDS: IBUPROFEN 600 MG TABLET PO PRN (12:07)
[2023-06-23 13:07] VITALS: RESP 18; O2SAT 98
[2023-06-23] MEDS: OLANZapine 5 MG RAPDIS TABLET PO SCH (20:36)
[2023-06-23] MEDS: ATORVASTATIN CALCIUM 20 MG TABLET PO SCH (20:36)
[2023-06-23] MEDS: MELATONIN 5 MG TABLET PO SCH (20:36)
[2023-06-23] MEDS: MIRTAZAPINE 15 MG TABLET PO SCH (20:37)
[2023-06-23] MEDS: GABAPENTIN 400 MG CAPSULE PO SCH (20:37)
[2023-06-23 21:55] VITALS: BP 127/83; PULSE 87; RESP 18; TEMP 97.3; O2SAT 98
[2023-06-24 05:07] VITALS: BP 147/90; PULSE 83; RESP 18; TEMP 97.7; O2SAT 96
[2023-06-24] MEDS: IBUPROFEN 600 MG TABLET PO PRN (05:17)
[2023-06-24] MEDS: LITHIUM CARBONATE 300 MG CAPSULE PO SCH ×3 (06:21→16:13)
[2023-06-24] MEDS: DULoxetine HCL 20 MG CAPSULE PO SCH (08:13)
[2023-06-24] MEDS: FLUoxetine HCL 20 MG CAPSULE PO SCH (08:14)
[2023-06-24] MEDS: AmLODIPine BESYLATE 5 MG TABLET PO SCH (08:14)
[2023-06-24] MEDS: GABAPENTIN 300 MG CAPSULE PO SCH ×3 (08:14→16:13)
[2023-06-24] MEDS: LISINOPRIL 10 MG TABLET PO SCH (08:14)
[2023-06-24] MEDS: OMEGA-3/DHA/EPA/FISH OIL 1,000 MG CAPSULE PO SCH (08:14)
[2023-06-24] MEDS: TRIHEXYPHENIDYL HCL 2 MG TABLET PO SCH ×3 (08:14→16:13)
[2023-06-24] MEDS: DOCUSATE SODIUM 250 MG CAPSULE PO SCH ×2 (08:14→16:13)
[2023-06-24 09:12] VITALS: PULSE 83; RESP 17; TEMP 98.3; O2SAT 96
[2023-06-24 20:07] VITALS: RESP 18
[2023-06-24] MEDS: MIRTAZAPINE 15 MG TABLET PO SCH (21:19)
[2023-06-24] MEDS: MELATONIN 5 MG TABLET PO SCH (21:19)
[2023-06-24] MEDS: GABAPENTIN 400 MG CAPSULE PO SCH (21:20)
[2023-06-24] MEDS: ATORVASTATIN CALCIUM 20 MG TABLET PO SCH (21:20)
[2023-06-24] MEDS: OLANZapine 5 MG RAPDIS TABLET PO SCH (21:20)
[2023-06-25] MEDS: LITHIUM CARBONATE 300 MG CAPSULE PO SCH ×3 (06:29→17:03)
[2023-06-25 09:40] VITALS: BP 121/60; PULSE 76; RESP 18; TEMP 97.4
[2023-06-25] MEDS: DOCUSATE SODIUM 250 MG CAPSULE PO SCH ×2 (09:43→17:03)
[2023-06-25] MEDS: TRIHEXYPHENIDYL HCL 2 MG TABLET PO SCH ×3 (09:43→17:03)
[2023-06-25] MEDS: OMEGA-3/DHA/EPA/FISH OIL 1,000 MG CAPSULE PO SCH (09:43)
[2023-06-25] MEDS: GABAPENTIN 300 MG CAPSULE PO SCH ×3 (09:44→17:02)
[2023-06-25] MEDS: FLUoxetine HCL 20 MG CAPSULE PO SCH (09:44)
[2023-06-25] MEDS: AmLODIPine BESYLATE 5 MG TABLET PO SCH (09:44)
[2023-06-25] MEDS: LISINOPRIL 10 MG TABLET PO SCH (09:44)
[2023-06-25] MEDS: DULoxetine HCL 20 MG CAPSULE PO SCH (09:44)
[2023-06-25] MEDS: ATORVASTATIN CALCIUM 20 MG TABLET PO SCH (20:05)
[2023-06-25] MEDS: MELATONIN 5 MG TABLET PO SCH (20:05)
[2023-06-25] MEDS: MIRTAZAPINE 15 MG TABLET PO SCH (20:05)
[2023-06-25] MEDS: GABAPENTIN 400 MG CAPSULE PO SCH (20:05)
[2023-06-25] MEDS: OLANZapine 5 MG RAPDIS TABLET PO SCH (20:06)
[2023-06-25 22:18] VITALS: BP 129/64; PULSE 86; RESP 16; TEMP 90.6; O2SAT 90
[2023-06-26] MEDS: LITHIUM CARBONATE 300 MG CAPSULE PO SCH ×3 (06:13→16:19)
[2023-06-26 08:09] VITALS: BP 146/82; PULSE 69; RESP 18; TEMP 97.9; O2SAT 98
[2023-06-26] MEDS: DOCUSATE SODIUM 250 MG CAPSULE PO SCH ×2 (08:29→16:19)
[2023-06-26] MEDS: LISINOPRIL 10 MG TABLET PO SCH (08:29)
[2023-06-26] MEDS: OMEGA-3/DHA/EPA/FISH OIL 1,000 MG CAPSULE PO SCH (08:29)
[2023-06-26] MEDS: TRIHEXYPHENIDYL HCL 2 MG TABLET PO SCH ×3 (08:29→16:19)
[2023-06-26] MEDS: FLUoxetine HCL 20 MG CAPSULE PO SCH (08:29)
[2023-06-26] MEDS: GABAPENTIN 300 MG CAPSULE PO SCH ×3 (08:29→16:19)
[2023-06-26] MEDS: AmLODIPine BESYLATE 5 MG TABLET PO SCH (08:30)
[2023-06-26] MEDS: DULoxetine HCL 20 MG CAPSULE PO SCH (08:30)
[2023-06-26] MEDS: MIRTAZAPINE 15 MG TABLET PO SCH (20:09)
[2023-06-26] MEDS: GABAPENTIN 400 MG CAPSULE PO SCH (20:09)
[2023-06-26] MEDS: ATORVASTATIN CALCIUM 20 MG TABLET PO SCH (20:09)
[2023-06-26] MEDS: OLANZapine 5 MG RAPDIS TABLET PO SCH (20:09)
[2023-06-26] MEDS: MELATONIN 5 MG TABLET PO SCH (20:09)
[2023-06-26 21:03] VITALS: RESP 17; TEMP 97.5; O2SAT 100
[2023-06-27] MEDS: LITHIUM CARBONATE 300 MG CAPSULE PO SCH ×3 (07:21→17:01)
[2023-06-27 08:17] VITALS: BP 131/78; PULSE 88; RESP 19; TEMP 97.6; O2SAT 97
[2023-06-27] MEDS: GABAPENTIN 300 MG CAPSULE PO SCH ×2 (08:53→13:03)
[2023-06-27] MEDS: DOCUSATE SODIUM 250 MG CAPSULE PO SCH ×2 (08:53→17:01)
[2023-06-27] MEDS: AmLODIPine BESYLATE 5 MG TABLET PO SCH (08:53)
[2023-06-27] MEDS: TRIHEXYPHENIDYL HCL 2 MG TABLET PO SCH ×3 (08:53→17:01)
[2023-06-27] MEDS: OMEGA-3/DHA/EPA/FISH OIL 1,000 MG CAPSULE PO SCH (08:53)
[2023-06-27] MEDS: DULoxetine HCL 20 MG CAPSULE PO SCH (08:54)
[2023-06-27] MEDS: FLUoxetine HCL 20 MG CAPSULE PO SCH (08:54)
[2023-06-27] MEDS: LISINOPRIL 10 MG TABLET PO SCH (08:54)
[2023-06-27] MEDS: GABAPENTIN 400 MG CAPSULE PO SCH ×2 (17:05→20:25)
[2023-06-27] MEDS: ATORVASTATIN CALCIUM 20 MG TABLET PO SCH (20:26)
[2023-06-27] MEDS: MIRTAZAPINE 15 MG TABLET PO SCH (20:26)
[2023-06-27] MEDS: OLANZapine 5 MG RAPDIS TABLET PO SCH (20:26)
[2023-06-27] MEDS: MELATONIN 5 MG TABLET PO SCH (20:26)
[2023-06-27 20:50] VITALS: BP 124/79; PULSE 86; RESP 18; TEMP 98.3; O2SAT 96
[2023-06-28] MEDS: LITHIUM CARBONATE 300 MG CAPSULE PO SCH ×3 (06:05→16:55)
[2023-06-28 08:20] VITALS: BP 139/69; PULSE 92; RESP 18; TEMP 97.7; O2SAT 96
[2023-06-28] MEDS: DOCUSATE SODIUM 250 MG CAPSULE PO SCH ×2 (08:47→16:54)
[2023-06-28] MEDS: OMEGA-3/DHA/EPA/FISH OIL 1,000 MG CAPSULE PO SCH (08:47)
[2023-06-28] MEDS: TRIHEXYPHENIDYL HCL 2 MG TABLET PO SCH ×3 (08:47→16:54)
[2023-06-28] MEDS: LISINOPRIL 10 MG TABLET PO SCH (08:48)
[2023-06-28] MEDS: AmLODIPine BESYLATE 5 MG TABLET PO SCH (08:48)
[2023-06-28] MEDS: GABAPENTIN 400 MG CAPSULE PO SCH ×4 (08:48→21:35)
[2023-06-28 20:20] VITALS: BP 134/85; PULSE 80; RESP 19; TEMP 97.9; O2SAT 100
[2023-06-28] MEDS: OLANZapine 5 MG RAPDIS TABLET PO SCH (21:34)
[2023-06-28] MEDS: MIRTAZAPINE 15 MG TABLET PO SCH (21:34)
[2023-06-28] MEDS: MELATONIN 5 MG TABLET PO SCH (21:35)
[2023-06-28] MEDS: ATORVASTATIN CALCIUM 20 MG TABLET PO SCH (21:35)
[2023-06-29] MEDS: LITHIUM CARBONATE 300 MG CAPSULE PO SCH ×3 (06:23→16:04)
[2023-06-29 08:17] VITALS: RESP 17
[2023-06-29] MEDS: DULoxetine HCL 30 MG CAPSULE PO SCH (08:30)
[2023-06-29] MEDS: DOCUSATE SODIUM 250 MG CAPSULE PO SCH ×2 (08:31→16:04)
[2023-06-29] MEDS: OMEGA-3/DHA/EPA/FISH OIL 1,000 MG CAPSULE PO SCH (08:31)
[2023-06-29] MEDS: TRIHEXYPHENIDYL HCL 2 MG TABLET PO SCH ×3 (08:31→16:03)
[2023-06-29] MEDS: GABAPENTIN 400 MG CAPSULE PO SCH ×4 (08:31→20:21)
[2023-06-29] MEDS: LISINOPRIL 10 MG TABLET PO SCH (08:31)
[2023-06-29] MEDS: AmLODIPine BESYLATE 5 MG TABLET PO SCH (10:07)
[2023-06-29] MEDS: MELATONIN 5 MG TABLET PO SCH (20:22)
[2023-06-29] MEDS: OLANZapine 5 MG RAPDIS TABLET PO SCH (20:22)
[2023-06-29] MEDS: MIRTAZAPINE 15 MG TABLET PO SCH (20:22)
[2023-06-29] MEDS: ATORVASTATIN CALCIUM 20 MG TABLET PO SCH (20:23)
[2023-06-29 20:28] VITALS: RESP 17
[2023-06-30] MEDS: LITHIUM CARBONATE 300 MG CAPSULE PO SCH ×3 (06:48→16:56)
[2023-06-30 08:16] VITALS: RESP 17
[2023-06-30 09:30] VITALS: BP 126/68; PULSE 81; RESP 18; TEMP 97.5; O2SAT 97
[2023-06-30] MEDS: DOCUSATE SODIUM 250 MG CAPSULE PO SCH ×2 (09:32→16:56)
[2023-06-30] MEDS: DULoxetine HCL 30 MG CAPSULE PO SCH (09:32)
[2023-06-30] MEDS: TRIHEXYPHENIDYL HCL 2 MG TABLET PO SCH ×3 (09:32→16:56)
[2023-06-30] MEDS: GABAPENTIN 400 MG CAPSULE PO SCH ×4 (09:36→20:45)
[2023-06-30] MEDS: AmLODIPine BESYLATE 5 MG TABLET PO SCH (09:36)
[2023-06-30] MEDS: OMEGA-3/DHA/EPA/FISH OIL 1,000 MG CAPSULE PO SCH (09:36)
[2023-06-30] MEDS: LISINOPRIL 10 MG TABLET PO SCH (09:36)
[2023-06-30 20:00] VITALS: BP 127/72; PULSE 81; RESP 18; TEMP 97.5; O2SAT 100
[2023-06-30] MEDS: OLANZapine 5 MG RAPDIS TABLET PO SCH (20:47)
[2023-06-30] MEDS: MELATONIN 5 MG TABLET PO SCH (20:47)
[2023-06-30] MEDS: MIRTAZAPINE 15 MG TABLET PO SCH (20:47)
[2023-06-30] MEDS: ATORVASTATIN CALCIUM 20 MG TABLET PO SCH (20:48)
[2023-07-01] MEDS: TraMADol HCL 50 MG TABLET PO PRN (01:39)
[2023-07-01] MEDS: LITHIUM CARBONATE 300 MG CAPSULE PO SCH ×3 (06:15→16:37)
[2023-07-01 08:41] VITALS: BP 137/95; PULSE 90; RESP 18; TEMP 97.2; O2SAT 95
[2023-07-01] MEDS: TRIHEXYPHENIDYL HCL 2 MG TABLET PO SCH ×3 (08:50→16:32)
[2023-07-01] MEDS: DOCUSATE SODIUM 250 MG CAPSULE PO SCH ×2 (08:51→16:32)
[2023-07-01] MEDS: OMEGA-3/DHA/EPA/FISH OIL 1,000 MG CAPSULE PO SCH (08:51)
[2023-07-01] MEDS: DULoxetine HCL 30 MG CAPSULE PO SCH (08:51)
[2023-07-01] MEDS: AmLODIPine BESYLATE 5 MG TABLET PO SCH (08:52)
[2023-07-01] MEDS: GABAPENTIN 400 MG CAPSULE PO SCH ×4 (08:52→20:21)
[2023-07-01] MEDS: LISINOPRIL 10 MG TABLET PO SCH (08:52)
[2023-07-01 20:05] VITALS: BP 130/75; PULSE 84; RESP 20; TEMP 98.1; O2SAT 95
[2023-07-01] MEDS: ATORVASTATIN CALCIUM 20 MG TABLET PO SCH (20:21)
[2023-07-01] MEDS: OLANZapine 5 MG RAPDIS TABLET PO SCH (20:21)
[2023-07-01] MEDS: MELATONIN 5 MG TABLET PO SCH (20:21)
[2023-07-01] MEDS: MIRTAZAPINE 15 MG TABLET PO SCH (20:21)
[2023-07-02] MEDS: LITHIUM CARBONATE 300 MG CAPSULE PO SCH ×3 (06:33→16:38)
[2023-07-02 08:23] VITALS: BP 133/77; PULSE 75; RESP 18; TEMP 97.9; O2SAT 95
[2023-07-02] MEDS: DOCUSATE SODIUM 250 MG CAPSULE PO SCH ×2 (08:50→16:37)
[2023-07-02] MEDS: TRIHEXYPHENIDYL HCL 2 MG TABLET PO SCH ×3 (08:50→16:37)
[2023-07-02] MEDS: AmLODIPine BESYLATE 5 MG TABLET PO SCH (08:51)
[2023-07-02] MEDS: GABAPENTIN 400 MG CAPSULE PO SCH ×4 (08:51→20:01)
[2023-07-02] MEDS: DULoxetine HCL 30 MG CAPSULE PO SCH (08:51)
[2023-07-02] MEDS: OMEGA-3/DHA/EPA/FISH OIL 1,000 MG CAPSULE PO SCH (08:51)
[2023-07-02] MEDS: LISINOPRIL 10 MG TABLET PO SCH (08:52)
[2023-07-02] MEDS: MELATONIN 5 MG TABLET PO SCH (20:01)
[2023-07-02] MEDS: MIRTAZAPINE 15 MG TABLET PO SCH (20:02)
[2023-07-02] MEDS: ATORVASTATIN CALCIUM 20 MG TABLET PO SCH (20:02)
[2023-07-02] MEDS: OLANZapine 5 MG RAPDIS TABLET PO SCH (20:02)
[2023-07-02 20:03] VITALS: BP 135/75; PULSE 88; RESP 17; TEMP 97.9; O2SAT 96
[2023-07-03] MEDS: LITHIUM CARBONATE 300 MG CAPSULE PO SCH ×3 (06:25→16:08)
[2023-07-03 08:28] VITALS: BP 110/74; PULSE 67; RESP 18; TEMP 97.8; O2SAT 96
[2023-07-03] MEDS: TRIHEXYPHENIDYL HCL 2 MG TABLET PO SCH ×3 (08:35→16:08)
[2023-07-03] MEDS: LISINOPRIL 10 MG TABLET PO SCH (08:37)
[2023-07-03] MEDS: AmLODIPine BESYLATE 5 MG TABLET PO SCH (08:37)
[2023-07-03] MEDS: GABAPENTIN 400 MG CAPSULE PO SCH ×4 (08:37→20:45)
[2023-07-03] MEDS: OMEGA-3/DHA/EPA/FISH OIL 1,000 MG CAPSULE PO SCH (08:37)
[2023-07-03] MEDS: DOCUSATE SODIUM 250 MG CAPSULE PO SCH ×2 (09:13→16:08)
[2023-07-03 20:36] VITALS: BP 136/72; PULSE 77; RESP 17; TEMP 98; O2SAT 96
[2023-07-03] MEDS: MELATONIN 5 MG TABLET PO SCH (20:44)
[2023-07-03] MEDS: MIRTAZAPINE 15 MG TABLET PO SCH (20:45)
[2023-07-03] MEDS: OLANZapine 5 MG RAPDIS TABLET PO SCH (20:45)
[2023-07-03] MEDS: ATORVASTATIN CALCIUM 20 MG TABLET PO SCH (20:45)
[2023-07-04] MEDS: LITHIUM CARBONATE 300 MG CAPSULE PO SCH ×3 (06:24→16:26)
[2023-07-04 09:12] VITALS: BP 138/83; PULSE 92; RESP 16; TEMP 98.1; O2SAT 99
[2023-07-04] MEDS: DOCUSATE SODIUM 250 MG CAPSULE PO SCH ×2 (09:14→16:27)
[2023-07-04] MEDS: OMEGA-3/DHA/EPA/FISH OIL 1,000 MG CAPSULE PO SCH (09:14)
[2023-07-04] MEDS: TRIHEXYPHENIDYL HCL 2 MG TABLET PO SCH ×3 (09:14→16:26)
[2023-07-04] MEDS: DULoxetine HCL 60 MG CAPSULE PO SCH (09:15)
[2023-07-04] MEDS: GABAPENTIN 400 MG CAPSULE PO SCH ×4 (09:15→21:27)
[2023-07-04] MEDS: LISINOPRIL 10 MG TABLET PO SCH (09:15)
[2023-07-04] MEDS: AmLODIPine BESYLATE 5 MG TABLET PO SCH (09:16)
[2023-07-04 20:12] VITALS: BP 142/83; PULSE 82; RESP 19; TEMP 97.7; O2SAT 94
[2023-07-04] MEDS: MELATONIN 5 MG TABLET PO SCH (21:28)
[2023-07-04] MEDS: OLANZapine 5 MG RAPDIS TABLET PO SCH (21:28)
[2023-07-04] MEDS: ATORVASTATIN CALCIUM 20 MG TABLET PO SCH (21:28)
[2023-07-04] MEDS: MIRTAZAPINE 15 MG TABLET PO SCH (21:29)
[2023-07-05] MEDS: LITHIUM CARBONATE 300 MG CAPSULE PO SCH ×3 (06:12→16:26)
[2023-07-05] MEDS: TRIHEXYPHENIDYL HCL 2 MG TABLET PO SCH ×3 (08:18→16:26)
[2023-07-05] MEDS: OMEGA-3/DHA/EPA/FISH OIL 1,000 MG CAPSULE PO SCH (08:19)
[2023-07-05] MEDS: GABAPENTIN 400 MG CAPSULE PO SCH ×4 (08:19→20:44)
[2023-07-05] MEDS: DOCUSATE SODIUM 250 MG CAPSULE PO SCH ×2 (08:19→16:26)
[2023-07-05] MEDS: DULoxetine HCL 60 MG CAPSULE PO SCH (08:20)
[2023-07-05] MEDS: AmLODIPine BESYLATE 5 MG TABLET PO SCH (08:20)
[2023-07-05] MEDS: LISINOPRIL 10 MG TABLET PO SCH (08:20)
[2023-07-05 13:02] VITALS: RESP 16
[2023-07-05] MEDS: MELATONIN 5 MG TABLET PO SCH (20:45)
[2023-07-05] MEDS: MIRTAZAPINE 15 MG TABLET PO SCH (20:45)
[2023-07-05] MEDS: OLANZapine 5 MG RAPDIS TABLET PO SCH (20:45)
[2023-07-05] MEDS: ATORVASTATIN CALCIUM 20 MG TABLET PO SCH (20:45)
[2023-07-05 21:47] VITALS: BP 126/80; PULSE 85; RESP 18; TEMP 97.8; O2SAT 94
[2023-07-06] MEDS: LITHIUM CARBONATE 300 MG CAPSULE PO SCH ×3 (06:16→16:39)
[2023-07-06 08:05] VITALS: BP 146/64; PULSE 86; RESP 17; TEMP 97.5; O2SAT 98
[2023-07-06] MEDS: GABAPENTIN 400 MG CAPSULE PO SCH ×4 (08:35→20:05)
[2023-07-06] MEDS: TRIHEXYPHENIDYL HCL 2 MG TABLET PO SCH ×3 (08:35→16:39)
[2023-07-06] MEDS: LISINOPRIL 10 MG TABLET PO SCH (08:35)
[2023-07-06] MEDS: DULoxetine HCL 60 MG CAPSULE PO SCH (08:35)
[2023-07-06] MEDS: AmLODIPine BESYLATE 5 MG TABLET PO SCH (08:35)
[2023-07-06] MEDS: OMEGA-3/DHA/EPA/FISH OIL 1,000 MG CAPSULE PO SCH (08:35)
[2023-07-06] MEDS: DOCUSATE SODIUM 250 MG CAPSULE PO SCH ×2 (08:35→16:39)
[2023-07-06] MEDS: MIRTAZAPINE 15 MG TABLET PO SCH (20:05)
[2023-07-06] MEDS: ATORVASTATIN CALCIUM 20 MG TABLET PO SCH (20:05)
[2023-07-06] MEDS: MELATONIN 5 MG TABLET PO SCH (20:05)
[2023-07-06] MEDS: OLANZapine 5 MG RAPDIS TABLET PO SCH (20:06)
[2023-07-06 20:15] VITALS: BP 133/93; PULSE 95; RESP 18; TEMP 97.9; O2SAT 97
[2023-07-07] MEDS: LITHIUM CARBONATE 300 MG CAPSULE PO SCH ×3 (06:15→16:17)
[2023-07-07 08:14] VITALS: BP 121/66; PULSE 70; RESP 17; TEMP 98.5; O2SAT 98
[2023-07-07] MEDS: DOCUSATE SODIUM 250 MG CAPSULE PO SCH ×2 (08:33→16:17)
[2023-07-07] MEDS: OMEGA-3/DHA/EPA/FISH OIL 1,000 MG CAPSULE PO SCH (08:33)
[2023-07-07] MEDS: TRIHEXYPHENIDYL HCL 2 MG TABLET PO SCH ×3 (08:33→16:17)
[2023-07-07] MEDS: AmLODIPine BESYLATE 5 MG TABLET PO SCH (08:33)
[2023-07-07] MEDS: GABAPENTIN 400 MG CAPSULE PO SCH ×4 (08:33→20:21)
[2023-07-07] MEDS: DULoxetine HCL 60 MG CAPSULE PO SCH (08:33)
[2023-07-07] MEDS: LISINOPRIL 10 MG TABLET PO SCH (08:34)
[2023-07-07 20:07] VITALS: BP 125/76; PULSE 88; RESP 18; TEMP 97.8; O2SAT 96
[2023-07-07] MEDS: OLANZapine 5 MG RAPDIS TABLET PO SCH (20:21)
[2023-07-07] MEDS: MIRTAZAPINE 15 MG TABLET PO SCH (20:21)
[2023-07-07] MEDS: MELATONIN 5 MG TABLET PO SCH (20:21)
[2023-07-07] MEDS: ATORVASTATIN CALCIUM 20 MG TABLET PO SCH (20:21)
[2023-07-08] MEDS: LITHIUM CARBONATE 300 MG CAPSULE PO SCH ×3 (06:30→16:36)
[2023-07-08] MEDS: AmLODIPine BESYLATE 5 MG TABLET PO SCH (08:20)
[2023-07-08] MEDS: DULoxetine HCL 60 MG CAPSULE PO SCH (08:20)
[2023-07-08] MEDS: GABAPENTIN 400 MG CAPSULE PO SCH ×4 (08:21→20:02)
[2023-07-08] MEDS: TRIHEXYPHENIDYL HCL 2 MG TABLET PO SCH ×3 (08:21→16:36)
[2023-07-08] MEDS: DOCUSATE SODIUM 250 MG CAPSULE PO SCH ×2 (08:21→16:36)
[2023-07-08] MEDS: OMEGA-3/DHA/EPA/FISH OIL 1,000 MG CAPSULE PO SCH (08:21)
[2023-07-08] MEDS: LISINOPRIL 10 MG TABLET PO SCH (08:22)
[2023-07-08 08:49] VITALS: BP 109/68; PULSE 91; RESP 18; TEMP 97.8; O2SAT 96
[2023-07-08 16:36] VITALS: RESP 18
[2023-07-08] MEDS: IBUPROFEN 600 MG TABLET PO PRN (16:36)
[2023-07-08 17:24] VITALS: RESP 18
[2023-07-08] MEDS: MIRTAZAPINE 15 MG TABLET PO SCH (20:02)
[2023-07-08] MEDS: ATORVASTATIN CALCIUM 20 MG TABLET PO SCH (20:02)
[2023-07-08 20:03] VITALS: BP 130/90; PULSE 94; RESP 17; TEMP 98.1; O2SAT 97
[2023-07-08] MEDS: MELATONIN 5 MG TABLET PO SCH (20:03)
[2023-07-08] MEDS: OLANZapine 5 MG RAPDIS TABLET PO SCH (20:03)
[2023-07-09] MEDS: LITHIUM CARBONATE 300 MG CAPSULE PO SCH ×3 (06:34→16:26)
[2023-07-09 09:24] VITALS: BP 151/90; PULSE 91; RESP 18; TEMP 97; O2SAT 99
[2023-07-09] MEDS: OMEGA-3/DHA/EPA/FISH OIL 1,000 MG CAPSULE PO SCH (09:26)
[2023-07-09] MEDS: LISINOPRIL 10 MG TABLET PO SCH (09:26)
[2023-07-09] MEDS: DULoxetine HCL 60 MG CAPSULE PO SCH (09:27)
[2023-07-09] MEDS: TRIHEXYPHENIDYL HCL 2 MG TABLET PO SCH ×3 (09:27→16:27)
[2023-07-09] MEDS: AmLODIPine BESYLATE 5 MG TABLET PO SCH (09:27)
[2023-07-09] MEDS: GABAPENTIN 400 MG CAPSULE PO SCH ×4 (09:27→20:57)
[2023-07-09] MEDS: DOCUSATE SODIUM 250 MG CAPSULE PO SCH ×2 (09:27→16:26)
[2023-07-09] MEDS: MIRTAZAPINE 15 MG TABLET PO SCH (20:57)
[2023-07-09] MEDS: OLANZapine 5 MG RAPDIS TABLET PO SCH (20:57)
[2023-07-09] MEDS: ATORVASTATIN CALCIUM 20 MG TABLET PO SCH (20:57)
[2023-07-09] MEDS: MELATONIN 5 MG TABLET PO SCH (20:57)
[2023-07-10 00:21] VITALS: RESP 18; TEMP 97.7
[2023-07-10] MEDS: LITHIUM CARBONATE 300 MG CAPSULE PO SCH ×3 (06:00→16:16)
[2023-07-10] MEDS: DOCUSATE SODIUM 250 MG CAPSULE PO SCH ×2 (08:17→16:16)
[2023-07-10] MEDS: DULoxetine HCL 60 MG CAPSULE PO SCH (08:17)
[2023-07-10] MEDS: TRIHEXYPHENIDYL HCL 2 MG TABLET PO SCH ×3 (08:17→16:16)
[2023-07-10] MEDS: OMEGA-3/DHA/EPA/FISH OIL 1,000 MG CAPSULE PO SCH (08:18)
[2023-07-10] MEDS: GABAPENTIN 400 MG CAPSULE PO SCH ×4 (08:18→20:07)
[2023-07-10] MEDS: LISINOPRIL 10 MG TABLET PO SCH (08:18)
[2023-07-10] MEDS: AmLODIPine BESYLATE 5 MG TABLET PO SCH (08:18)
[2023-07-10 10:29] VITALS: BP 136/87; PULSE 88; RESP 17; TEMP 97; O2SAT 97
[2023-07-10] MEDS: MIRTAZAPINE 15 MG TABLET PO SCH (20:07)
[2023-07-10] MEDS: ATORVASTATIN CALCIUM 20 MG TABLET PO SCH (20:07)
[2023-07-10] MEDS: OLANZapine 5 MG RAPDIS TABLET PO SCH (20:07)
[2023-07-10] MEDS: MELATONIN 5 MG TABLET PO SCH (20:07)
[2023-07-10 21:00] VITALS: RESP 18; TEMP 98
[2023-07-11] MEDS: LITHIUM CARBONATE 300 MG CAPSULE PO SCH ×3 (06:37→16:24)
[2023-07-11] MEDS: TRIHEXYPHENIDYL HCL 2 MG TABLET PO SCH ×3 (08:25→16:24)
[2023-07-11] MEDS: DOCUSATE SODIUM 250 MG CAPSULE PO SCH ×2 (08:25→16:24)
[2023-07-11] MEDS: DULoxetine HCL 60 MG CAPSULE PO SCH (08:25)
[2023-07-11] MEDS: GABAPENTIN 400 MG CAPSULE PO SCH ×4 (08:25→20:11)
[2023-07-11] MEDS: OMEGA-3/DHA/EPA/FISH OIL 1,000 MG CAPSULE PO SCH (08:25)
[2023-07-11] MEDS: AmLODIPine BESYLATE 5 MG TABLET PO SCH (08:25)
[2023-07-11] MEDS: LISINOPRIL 10 MG TABLET PO SCH (08:26)
[2023-07-11 08:42] VITALS: RESP 17
[2023-07-11] MEDS: IBUPROFEN 600 MG TABLET PO PRN (08:42)
[2023-07-11 09:04] VITALS: BP 142/63; PULSE 97; RESP 17; TEMP 97.3; O2SAT 97
[2023-07-11 09:42] VITALS: RESP 16
[2023-07-11] MEDS: ATORVASTATIN CALCIUM 20 MG TABLET PO SCH (20:11)
[2023-07-11] MEDS: MELATONIN 5 MG TABLET PO SCH (20:11)
[2023-07-11] MEDS: OLANZapine 5 MG RAPDIS TABLET PO SCH (20:11)
[2023-07-11] MEDS: MIRTAZAPINE 15 MG TABLET PO SCH (20:12)
[2023-07-11 21:00] VITALS: BP 133/87; PULSE 88; RESP 18; TEMP 98.3; O2SAT 97
[2023-07-12] MEDS: LITHIUM CARBONATE 300 MG CAPSULE PO SCH ×3 (06:35→17:06)
[2023-07-12] MEDS: LISINOPRIL 10 MG TABLET PO SCH (08:32)
[2023-07-12] MEDS: AmLODIPine BESYLATE 5 MG TABLET PO SCH (08:32)
[2023-07-12] MEDS: OMEGA-3/DHA/EPA/FISH OIL 1,000 MG CAPSULE PO SCH (08:32)
[2023-07-12] MEDS: TRIHEXYPHENIDYL HCL 2 MG TABLET PO SCH ×3 (08:32→17:06)
[2023-07-12] MEDS: DULoxetine HCL 60 MG CAPSULE PO SCH (08:32)
[2023-07-12] MEDS: DOCUSATE SODIUM 250 MG CAPSULE PO SCH ×2 (08:32→17:05)
[2023-07-12] MEDS: GABAPENTIN 400 MG CAPSULE PO SCH ×4 (08:32→20:29)
[2023-07-12 09:11] VITALS: BP 149/79; PULSE 87; RESP 16; TEMP 98.3; O2SAT 98
[2023-07-12] MEDS: MELATONIN 5 MG TABLET PO SCH (20:29)
[2023-07-12] MEDS: ATORVASTATIN CALCIUM 20 MG TABLET PO SCH (20:29)
[2023-07-12] MEDS: MIRTAZAPINE 15 MG TABLET PO SCH (20:29)
[2023-07-12] MEDS: OLANZapine 5 MG RAPDIS TABLET PO SCH (20:30)
[2023-07-12 20:53] VITALS: BP 129/66; PULSE 76; RESP 17; TEMP 97.7; O2SAT 97
[2023-07-13] MEDS: LITHIUM CARBONATE 300 MG CAPSULE PO SCH ×3 (06:26→20:02)
[2023-07-13] MEDS: LISINOPRIL 10 MG TABLET PO SCH (08:39)
[2023-07-13] MEDS: GABAPENTIN 400 MG CAPSULE PO SCH ×4 (08:39→20:02)
[2023-07-13] MEDS: TRIHEXYPHENIDYL HCL 2 MG TABLET PO SCH ×3 (08:39→16:16)
[2023-07-13] MEDS: AmLODIPine BESYLATE 5 MG TABLET PO SCH (08:39)
[2023-07-13] MEDS: DOCUSATE SODIUM 250 MG CAPSULE PO SCH ×2 (08:39→16:16)
[2023-07-13] MEDS: OMEGA-3/DHA/EPA/FISH OIL 1,000 MG CAPSULE PO SCH (08:39)
[2023-07-13] MEDS: DULoxetine HCL 60 MG CAPSULE PO SCH (08:40)
[2023-07-13 08:59] VITALS: BP 131/75; PULSE 88; RESP 17; TEMP 98; O2SAT 97
[2023-07-13] MEDS: ATORVASTATIN CALCIUM 20 MG TABLET PO SCH (20:03)
[2023-07-13] MEDS: OLANZapine 5 MG RAPDIS TABLET PO SCH (20:03)
[2023-07-13] MEDS: MIRTAZAPINE 15 MG TABLET PO SCH (20:03)
[2023-07-13] MEDS: MELATONIN 5 MG TABLET PO SCH (20:03)
[2023-07-13 21:33] VITALS: BP 143/83; PULSE 84; RESP 18; TEMP 97.6; O2SAT 95
[2023-07-14] MEDS: LITHIUM CARBONATE 300 MG CAPSULE PO SCH ×3 (06:42→16:32)
[2023-07-14 08:23] VITALS: BP 128/82; PULSE 86; RESP 18; TEMP 98.6; O2SAT 98
[2023-07-14] MEDS: TRIHEXYPHENIDYL HCL 2 MG TABLET PO SCH ×3 (08:28→16:32)
[2023-07-14] MEDS: OMEGA-3/DHA/EPA/FISH OIL 1,000 MG CAPSULE PO SCH (08:28)
[2023-07-14] MEDS: AmLODIPine BESYLATE 5 MG TABLET PO SCH (08:29)
[2023-07-14] MEDS: LISINOPRIL 10 MG TABLET PO SCH (08:29)
[2023-07-14] MEDS: GABAPENTIN 400 MG CAPSULE PO SCH ×4 (08:29→20:35)
[2023-07-14] MEDS: DOCUSATE SODIUM 250 MG CAPSULE PO SCH ×2 (08:29→16:32)
[2023-07-14] MEDS: DULoxetine HCL 60 MG CAPSULE PO SCH (08:29)
[2023-07-14 20:07] VITALS: BP 135/78; PULSE 82; RESP 20; TEMP 98.2; O2SAT 98
[2023-07-14] MEDS: MIRTAZAPINE 15 MG TABLET PO SCH (20:34)
[2023-07-14] MEDS: ATORVASTATIN CALCIUM 20 MG TABLET PO SCH (20:34)
[2023-07-14] MEDS: OLANZapine 5 MG RAPDIS TABLET PO SCH (20:35)
[2023-07-14] MEDS: MELATONIN 5 MG TABLET PO SCH (20:35)
[2023-07-15] MEDS: LITHIUM CARBONATE 300 MG CAPSULE PO SCH ×3 (05:59→17:11)
[2023-07-15] MEDS: TRIHEXYPHENIDYL HCL 2 MG TABLET PO SCH ×3 (08:35→17:11)
[2023-07-15] MEDS: GABAPENTIN 400 MG CAPSULE PO SCH ×4 (08:35→21:47)
[2023-07-15] MEDS: AmLODIPine BESYLATE 5 MG TABLET PO SCH (08:35)
[2023-07-15] MEDS: OMEGA-3/DHA/EPA/FISH OIL 1,000 MG CAPSULE PO SCH (08:35)
[2023-07-15] MEDS: DULoxetine HCL 60 MG CAPSULE PO SCH (08:35)
[2023-07-15] MEDS: LISINOPRIL 10 MG TABLET PO SCH (08:36)
[2023-07-15] MEDS: DOCUSATE SODIUM 250 MG CAPSULE PO SCH ×2 (08:36→17:11)
[2023-07-15 08:49] VITALS: BP 133/79; PULSE 87; RESP 17; TEMP 97.8; O2SAT 96
[2023-07-15 20:17] VITALS: RESP 16
[2023-07-15] MEDS: ATORVASTATIN CALCIUM 20 MG TABLET PO SCH (21:47)
[2023-07-15] MEDS: MELATONIN 5 MG TABLET PO SCH (21:47)
[2023-07-15] MEDS: MIRTAZAPINE 15 MG TABLET PO SCH (21:47)
[2023-07-15] MEDS: OLANZapine 5 MG RAPDIS TABLET PO SCH (21:47)
[2023-07-16] MEDS: LITHIUM CARBONATE 300 MG CAPSULE PO SCH ×3 (06:35→16:50)
[2023-07-16 08:18] VITALS: BP 138/86; PULSE 97; RESP 18; TEMP 97.9; O2SAT 98
[2023-07-16] MEDS: TRIHEXYPHENIDYL HCL 2 MG TABLET PO SCH ×3 (08:49→16:50)
[2023-07-16] MEDS: GABAPENTIN 400 MG CAPSULE PO SCH ×4 (08:49→20:43)
[2023-07-16] MEDS: AmLODIPine BESYLATE 5 MG TABLET PO SCH (08:49)
[2023-07-16 08:50] VITALS: RESP 18; O2SAT 99
[2023-07-16] MEDS: DOCUSATE SODIUM 250 MG CAPSULE PO SCH ×2 (08:50→16:50)
[2023-07-16] MEDS: TraMADol HCL 50 MG TABLET PO PRN (08:50)
[2023-07-16] MEDS: OMEGA-3/DHA/EPA/FISH OIL 1,000 MG CAPSULE PO SCH (08:50)
[2023-07-16] MEDS: LISINOPRIL 10 MG TABLET PO SCH (08:50)
[2023-07-16] MEDS: DULoxetine HCL 60 MG CAPSULE PO SCH (08:50)
[2023-07-16 09:50] VITALS: RESP 17; O2SAT 99
[2023-07-16 20:21] VITALS: BP 108/62; PULSE 86; RESP 18; TEMP 98.1; O2SAT 96
[2023-07-16] MEDS: MIRTAZAPINE 15 MG TABLET PO SCH (20:43)
[2023-07-16] MEDS: ATORVASTATIN CALCIUM 20 MG TABLET PO SCH (20:44)
[2023-07-16] MEDS: MELATONIN 5 MG TABLET PO SCH (20:44)
[2023-07-16] MEDS: OLANZapine 5 MG RAPDIS TABLET PO SCH (20:44)
[2023-07-17] MEDS: LITHIUM CARBONATE 300 MG CAPSULE PO SCH ×3 (06:40→16:31)
[2023-07-17] MEDS: GABAPENTIN 400 MG CAPSULE PO SCH ×4 (08:55→20:46)
[2023-07-17] MEDS: LISINOPRIL 10 MG TABLET PO SCH (08:55)
[2023-07-17] MEDS: TRIHEXYPHENIDYL HCL 2 MG TABLET PO SCH ×3 (08:55→16:30)
[2023-07-17] MEDS: OMEGA-3/DHA/EPA/FISH OIL 1,000 MG CAPSULE PO SCH (08:55)
[2023-07-17] MEDS: DOCUSATE SODIUM 250 MG CAPSULE PO SCH ×2 (08:56→16:31)
[2023-07-17] MEDS: DULoxetine HCL 60 MG CAPSULE PO SCH (08:56)
[2023-07-17] MEDS: AmLODIPine BESYLATE 5 MG TABLET PO SCH (08:56)
[2023-07-17 08:58] VITALS: BP 129/92; PULSE 95; RESP 18; TEMP 96.8; O2SAT 96
[2023-07-17] MEDS: IBUPROFEN 600 MG TABLET PO PRN (09:24)
[2023-07-17 09:25] VITALS: RESP 18
[2023-07-17 10:24] VITALS: RESP 17
[2023-07-17] MEDS: MIRTAZAPINE 15 MG TABLET PO SCH (20:46)
[2023-07-17] MEDS: ATORVASTATIN CALCIUM 20 MG TABLET PO SCH (20:46)
[2023-07-17] MEDS: MELATONIN 5 MG TABLET PO SCH (20:46)
[2023-07-17] MEDS: OLANZapine 5 MG RAPDIS TABLET PO SCH (20:47)
[2023-07-17 20:50] VITALS: BP 117/76; PULSE 84; RESP 18; TEMP 97.9
[2023-07-18] MEDS: IBUPROFEN 600 MG TABLET PO PRN ×2 (06:10→20:07)
[2023-07-18] MEDS: LITHIUM CARBONATE 300 MG CAPSULE PO SCH ×3 (06:38→16:08)
[2023-07-18] MEDS: DOCUSATE SODIUM 250 MG CAPSULE PO SCH ×2 (08:22→16:08)
[2023-07-18] MEDS: TRIHEXYPHENIDYL HCL 2 MG TABLET PO SCH ×3 (08:22→16:07)
[2023-07-18] MEDS: OMEGA-3/DHA/EPA/FISH OIL 1,000 MG CAPSULE PO SCH (08:22)
[2023-07-18] MEDS: LISINOPRIL 10 MG TABLET PO SCH (08:23)
[2023-07-18] MEDS: GABAPENTIN 400 MG CAPSULE PO SCH ×4 (08:24→20:06)
[2023-07-18] MEDS: AmLODIPine BESYLATE 5 MG TABLET PO SCH (08:24)
[2023-07-18] MEDS: DULoxetine HCL 60 MG CAPSULE PO SCH (08:24)
[2023-07-18 08:33] VITALS: RESP 18
[2023-07-18] MEDS: MELATONIN 5 MG TABLET PO SCH (20:05)
[2023-07-18] MEDS: MIRTAZAPINE 15 MG TABLET PO SCH (20:06)
[2023-07-18] MEDS: OLANZapine 5 MG RAPDIS TABLET PO SCH (20:06)
[2023-07-18] MEDS: ATORVASTATIN CALCIUM 20 MG TABLET PO SCH (20:07)
[2023-07-18 20:13] VITALS: BP 123/81; PULSE 102; RESP 18; TEMP 98.1; O2SAT 96
[2023-07-19] MEDS: LITHIUM CARBONATE 300 MG CAPSULE PO SCH ×3 (06:39→16:53)
[2023-07-19 08:07] VITALS: BP 124/70; PULSE 90; RESP 17; TEMP 97.4; O2SAT 96
[2023-07-19 08:15] VITALS: BP 108/69; PULSE 83; RESP 16; TEMP 97.6; O2SAT 96
[2023-07-19] MEDS: TRIHEXYPHENIDYL HCL 2 MG TABLET PO SCH ×3 (08:24→16:54)
[2023-07-19] MEDS: OMEGA-3/DHA/EPA/FISH OIL 1,000 MG CAPSULE PO SCH (08:24)
[2023-07-19] MEDS: GABAPENTIN 400 MG CAPSULE PO SCH ×4 (08:24→20:10)
[2023-07-19] MEDS: DOCUSATE SODIUM 250 MG CAPSULE PO SCH ×2 (08:24→16:54)
[2023-07-19] MEDS: DULoxetine HCL 60 MG CAPSULE PO SCH (08:24)
[2023-07-19] MEDS: LISINOPRIL 10 MG TABLET PO SCH (08:24)
[2023-07-19] MEDS: AmLODIPine BESYLATE 5 MG TABLET PO SCH (08:25)
[2023-07-19] MEDS: MIRTAZAPINE 15 MG TABLET PO SCH (20:10)
[2023-07-19] MEDS: MELATONIN 5 MG TABLET PO SCH (20:10)
[2023-07-19] MEDS: ATORVASTATIN CALCIUM 20 MG TABLET PO SCH (20:10)
[2023-07-19] MEDS: OLANZapine 5 MG RAPDIS TABLET PO SCH (20:10)
[2023-07-19 20:26] VITALS: BP 124/70; PULSE 90; RESP 17; TEMP 97.4; O2SAT 96
[2023-07-20] MEDS: LITHIUM CARBONATE 300 MG CAPSULE PO SCH ×3 (06:33→16:35)
[2023-07-20 08:39] VITALS: BP 154/78; PULSE 90; RESP 17; O2SAT 98
[2023-07-20] MEDS: GABAPENTIN 400 MG CAPSULE PO SCH ×4 (08:39→20:11)
[2023-07-20] MEDS: OMEGA-3/DHA/EPA/FISH OIL 1,000 MG CAPSULE PO SCH (08:39)
[2023-07-20] MEDS: AmLODIPine BESYLATE 5 MG TABLET PO SCH (08:39)
[2023-07-20] MEDS: DULoxetine HCL 60 MG CAPSULE PO SCH (08:39)
[2023-07-20] MEDS: TRIHEXYPHENIDYL HCL 2 MG TABLET PO SCH ×3 (08:39→16:35)
[2023-07-20] MEDS: DOCUSATE SODIUM 250 MG CAPSULE PO SCH ×2 (08:39→16:35)
[2023-07-20] MEDS: LISINOPRIL 10 MG TABLET PO SCH (08:39)
[2023-07-20 08:44] VITALS: RESP 17
[2023-07-20] MEDS: IBUPROFEN 600 MG TABLET PO PRN (08:44)
[2023-07-20 09:41] VITALS: BP 96/55; PULSE 89; RESP 18; TEMP 97.5; O2SAT 99
[2023-07-20 09:44] VITALS: RESP 16
[2023-07-20] MEDS: ATORVASTATIN CALCIUM 20 MG TABLET PO SCH (20:10)
[2023-07-20] MEDS: MELATONIN 5 MG TABLET PO SCH (20:10)
[2023-07-20] MEDS: MIRTAZAPINE 15 MG TABLET PO SCH (20:11)
[2023-07-20] MEDS: OLANZapine 5 MG RAPDIS TABLET PO SCH (20:11)
[2023-07-20 20:32] VITALS: BP 100/60; PULSE 78; RESP 17; TEMP 98.2; O2SAT 97
[2023-07-21] MEDS: LITHIUM CARBONATE 300 MG CAPSULE PO SCH ×3 (06:33→16:48)
[2023-07-21] MEDS: OMEGA-3/DHA/EPA/FISH OIL 1,000 MG CAPSULE PO SCH (08:16)
[2023-07-21] MEDS: AmLODIPine BESYLATE 5 MG TABLET PO SCH (08:17)
[2023-07-21] MEDS: LISINOPRIL 10 MG TABLET PO SCH (08:17)
[2023-07-21] MEDS: DULoxetine HCL 60 MG CAPSULE PO SCH (08:17)
[2023-07-21] MEDS: DOCUSATE SODIUM 250 MG CAPSULE PO SCH ×2 (08:17→16:47)
[2023-07-21] MEDS: TRIHEXYPHENIDYL HCL 2 MG TABLET PO SCH ×3 (08:17→16:47)
[2023-07-21] MEDS: GABAPENTIN 400 MG CAPSULE PO SCH ×4 (08:18→20:41)
[2023-07-21 08:32] VITALS: BP 134/77; PULSE 91; RESP 18; TEMP 98.5; O2SAT 97
[2023-07-21] MEDS: MELATONIN 5 MG TABLET PO SCH (20:41)
[2023-07-21] MEDS: MIRTAZAPINE 15 MG TABLET PO SCH (20:41)
[2023-07-21] MEDS: ATORVASTATIN CALCIUM 20 MG TABLET PO SCH (20:41)
[2023-07-21] MEDS: OLANZapine 5 MG RAPDIS TABLET PO SCH (20:42)
[2023-07-21 21:11] LABS: GLUCOMETER DEV NAME(LOC) BV2S.; GLUCOSE,POINT OF CARE 186 MG/DL (70-110)
[2023-07-22 04:39] VITALS: BP 100/75; TEMP 96.9; O2SAT 97
[2023-07-22] MEDS: LITHIUM CARBONATE 300 MG CAPSULE PO SCH ×3 (06:42→16:34)
[2023-07-22] MEDS: DULoxetine HCL 60 MG CAPSULE PO SCH (08:50)
[2023-07-22] MEDS: OMEGA-3/DHA/EPA/FISH OIL 1,000 MG CAPSULE PO SCH (08:50)
[2023-07-22] MEDS: TRIHEXYPHENIDYL HCL 2 MG TABLET PO SCH ×3 (08:51→16:34)
[2023-07-22] MEDS: GABAPENTIN 400 MG CAPSULE PO SCH ×4 (08:51→20:23)
[2023-07-22] MEDS: LISINOPRIL 10 MG TABLET PO SCH (08:51)
[2023-07-22] MEDS: DOCUSATE SODIUM 250 MG CAPSULE PO SCH ×2 (08:51→16:34)
[2023-07-22] MEDS: AmLODIPine BESYLATE 5 MG TABLET PO SCH (08:51)
[2023-07-22 10:34] VITALS: BP 129/80; PULSE 93; RESP 18; TEMP 98.3; O2SAT 97
[2023-07-22] MEDS: MELATONIN 5 MG TABLET PO SCH (20:23)
[2023-07-22] MEDS: OLANZapine 5 MG RAPDIS TABLET PO SCH (20:23)
[2023-07-22] MEDS: MIRTAZAPINE 15 MG TABLET PO SCH (20:23)
[2023-07-22] MEDS: ATORVASTATIN CALCIUM 20 MG TABLET PO SCH (20:23)
[2023-07-22 20:36] VITALS: BP 149/90; PULSE 96; RESP 18; TEMP 97.5; O2SAT 99
[2023-07-23] MEDS: LITHIUM CARBONATE 300 MG CAPSULE PO SCH ×3 (06:41→16:35)
[2023-07-23 08:25] VITALS: BP 90/51; PULSE 95; RESP 17; TEMP 97.4; O2SAT 96
[2023-07-23 09:00] VITALS: BP 112/64; PULSE 87; RESP 18
[2023-07-23] MEDS: GABAPENTIN 400 MG CAPSULE PO SCH ×4 (09:15→20:21)
[2023-07-23] MEDS: OMEGA-3/DHA/EPA/FISH OIL 1,000 MG CAPSULE PO SCH (09:15)
[2023-07-23] MEDS: DOCUSATE SODIUM 250 MG CAPSULE PO SCH ×2 (09:15→16:35)
[2023-07-23] MEDS: TRIHEXYPHENIDYL HCL 2 MG TABLET PO SCH ×3 (09:15→16:35)
[2023-07-23] MEDS: DULoxetine HCL 60 MG CAPSULE PO SCH (09:15)
[2023-07-23] MEDS: AmLODIPine BESYLATE 5 MG TABLET PO SCH (09:16)
[2023-07-23] MEDS: LISINOPRIL 10 MG TABLET PO SCH (09:25)
[2023-07-23 14:12] VITALS: RESP 18
[2023-07-23] MEDS: ACETAMINOPHEN 325 MG TABLET PO PRN (14:12)
[2023-07-23 15:09] VITALS: RESP 18
[2023-07-23 16:32] VITALS: BP 127/74; PULSE 83; RESP 18; TEMP 97.8
[2023-07-23] MEDS: TraMADol HCL 50 MG TABLET PO PRN (16:35)
[2023-07-23 20:09] VITALS: BP 138/81; PULSE 88; RESP 18; TEMP 97.9
[2023-07-23] MEDS: MIRTAZAPINE 15 MG TABLET PO SCH (20:21)
[2023-07-23] MEDS: OLANZapine 5 MG RAPDIS TABLET PO SCH (20:21)
[2023-07-23] MEDS: ATORVASTATIN CALCIUM 20 MG TABLET PO SCH (20:21)
[2023-07-23] MEDS: MELATONIN 5 MG TABLET PO SCH (20:21)
[2023-07-24] MEDS: LITHIUM CARBONATE 300 MG CAPSULE PO SCH ×2 (06:07→16:26)
[2023-07-24 08:47] VITALS: BP 143/85; PULSE 94; RESP 18; TEMP 98.9; O2SAT 100
[2023-07-24] MEDS: PALIPERIDONE PALMITATE 234 MG/1.5 ML SYRINGE IM ONE ×2 (09:00→13:48)
[2023-07-24] MEDS: OMEGA-3/DHA/EPA/FISH OIL 1,000 MG CAPSULE PO SCH (09:26)
[2023-07-24] MEDS: GABAPENTIN 400 MG CAPSULE PO SCH ×4 (09:27→20:04)
[2023-07-24] MEDS: LISINOPRIL 10 MG TABLET PO SCH (09:28)
[2023-07-24] MEDS: DOCUSATE SODIUM 250 MG CAPSULE PO SCH ×2 (09:28→16:26)
[2023-07-24] MEDS: AmLODIPine BESYLATE 5 MG TABLET PO SCH (09:28)
[2023-07-24] MEDS: DULoxetine HCL 60 MG CAPSULE PO SCH (11:03)
[2023-07-24] MEDS: TRIHEXYPHENIDYL HCL 2 MG TABLET PO SCH ×3 (11:04→16:26)
[2023-07-24 15:37] VITALS: BP 105/64; PULSE 85; RESP 18; TEMP 98.6; O2SAT 98
[2023-07-24] MEDS: ATORVASTATIN CALCIUM 20 MG TABLET PO SCH (20:04)
[2023-07-24] MEDS: OLANZapine 5 MG RAPDIS TABLET PO SCH (20:04)
[2023-07-24] MEDS: MELATONIN 5 MG TABLET PO SCH (20:04)
[2023-07-24] MEDS: MIRTAZAPINE 15 MG TABLET PO SCH (20:08)
[2023-07-24 21:49] VITALS: RESP 17
[2023-07-25 08:09] VITALS: BP 127/94; PULSE 93; RESP 18; TEMP 96.6; O2SAT 96
[2023-07-25] MEDS: OMEGA-3/DHA/EPA/FISH OIL 1,000 MG CAPSULE PO SCH (08:57)
[2023-07-25] MEDS: DULoxetine HCL 60 MG CAPSULE PO SCH (08:58)
[2023-07-25] MEDS: LISINOPRIL 10 MG TABLET PO SCH (08:58)
[2023-07-25] MEDS: AmLODIPine BESYLATE 5 MG TABLET PO SCH (08:58)
[2023-07-25] MEDS: GABAPENTIN 400 MG CAPSULE PO SCH ×4 (08:58→21:45)
[2023-07-25] MEDS: DOCUSATE SODIUM 250 MG CAPSULE PO SCH ×2 (08:59→16:13)
[2023-07-25] MEDS: LITHIUM CARBONATE 300 MG CAPSULE PO SCH ×2 (08:59→16:13)
[2023-07-25] MEDS: TRIHEXYPHENIDYL HCL 2 MG TABLET PO SCH ×3 (08:59→16:12)
[2023-07-25 20:00] VITALS: BP 121/57; PULSE 80; RESP 18; TEMP 97.6; O2SAT 96
[2023-07-25] MEDS: ATORVASTATIN CALCIUM 20 MG TABLET PO SCH (21:45)
[2023-07-25] MEDS: OLANZapine 5 MG RAPDIS TABLET PO SCH (21:45)
[2023-07-25] MEDS: MELATONIN 5 MG TABLET PO SCH (21:45)
[2023-07-25] MEDS: MIRTAZAPINE 15 MG TABLET PO SCH (21:46)
[2023-07-26] MEDS: TRIHEXYPHENIDYL HCL 2 MG TABLET PO SCH ×3 (08:49→16:09)
[2023-07-26] MEDS: LISINOPRIL 10 MG TABLET PO SCH (08:49)
[2023-07-26] MEDS: DOCUSATE SODIUM 250 MG CAPSULE PO SCH ×2 (08:50→16:09)
[2023-07-26] MEDS: OMEGA-3/DHA/EPA/FISH OIL 1,000 MG CAPSULE PO SCH (08:50)
[2023-07-26] MEDS: GABAPENTIN 400 MG CAPSULE PO SCH ×4 (08:50→20:04)
[2023-07-26] MEDS: DULoxetine HCL 60 MG CAPSULE PO SCH (08:50)
[2023-07-26] MEDS: AmLODIPine BESYLATE 5 MG TABLET PO SCH (08:50)
[2023-07-26] MEDS: ATORVASTATIN CALCIUM 20 MG TABLET PO SCH (20:04)
[2023-07-26] MEDS: MIRTAZAPINE 15 MG TABLET PO SCH (20:05)
[2023-07-26] MEDS: MELATONIN 5 MG TABLET PO SCH (20:05)
[2023-07-26] MEDS: OLANZapine 5 MG RAPDIS TABLET PO SCH (20:05)
[2023-07-26 20:39] VITALS: BP 125/79; PULSE 91; RESP 18; TEMP 97.9; O2SAT 95
[2023-07-27 08:18] VITALS: RESP 18
[2023-07-27 09:00] VITALS: BP 141/84; PULSE 84; RESP 18
[2023-07-27] MEDS: OMEGA-3/DHA/EPA/FISH OIL 1,000 MG CAPSULE PO SCH (09:00)
[2023-07-27] MEDS: LISINOPRIL 10 MG TABLET PO SCH (09:00)
[2023-07-27] MEDS: DOCUSATE SODIUM 250 MG CAPSULE PO SCH ×2 (09:01→16:17)
[2023-07-27] MEDS: AmLODIPine BESYLATE 5 MG TABLET PO SCH (09:01)
[2023-07-27] MEDS: DULoxetine HCL 60 MG CAPSULE PO SCH (09:01)
[2023-07-27] MEDS: GABAPENTIN 400 MG CAPSULE PO SCH ×4 (09:01→20:06)
[2023-07-27] MEDS: TRIHEXYPHENIDYL HCL 2 MG TABLET PO SCH ×3 (09:01→16:18)
[2023-07-27] MEDS: MELATONIN 5 MG TABLET PO SCH (20:05)
[2023-07-27] MEDS: MIRTAZAPINE 15 MG TABLET PO SCH (20:05)
[2023-07-27] MEDS: ATORVASTATIN CALCIUM 20 MG TABLET PO SCH (20:06)
[2023-07-27] MEDS: OLANZapine 5 MG RAPDIS TABLET PO SCH (20:07)
[2023-07-27 21:12] VITALS: BP 114/63; PULSE 77; RESP 19; TEMP 97.2; O2SAT 99
[2023-07-28] MEDS: LISINOPRIL 10 MG TABLET PO SCH (08:12)
[2023-07-28] MEDS: DULoxetine HCL 60 MG CAPSULE PO SCH (08:13)
[2023-07-28] MEDS: DOCUSATE SODIUM 250 MG CAPSULE PO SCH ×2 (08:13→16:57)
[2023-07-28] MEDS: GABAPENTIN 400 MG CAPSULE PO SCH ×4 (08:13→20:12)
[2023-07-28] MEDS: AmLODIPine BESYLATE 5 MG TABLET PO SCH (08:13)
[2023-07-28] MEDS: TRIHEXYPHENIDYL HCL 2 MG TABLET PO SCH ×3 (08:14→16:57)
[2023-07-28 08:46] VITALS: RESP 16
[2023-07-28] MEDS: OMEGA-3/DHA/EPA/FISH OIL 1,000 MG CAPSULE PO SCH (09:20)
[2023-07-28] MEDS: PALIPERIDONE PALMITATE 156 MG/ML SYRINGE IM ONE ×2 (09:34→10:59)
[2023-07-28] MEDS: ATORVASTATIN CALCIUM 20 MG TABLET PO SCH (20:12)
[2023-07-28] MEDS: MELATONIN 5 MG TABLET PO SCH (20:12)
[2023-07-28] MEDS: MIRTAZAPINE 15 MG TABLET PO SCH (20:12)
[2023-07-28] MEDS: OLANZapine 5 MG RAPDIS TABLET PO SCH (20:12)
[2023-07-28 23:46] VITALS: BP 125/69; PULSE 86; RESP 17; TEMP 97.6; O2SAT 97
[2023-07-29] MEDS: OMEGA-3/DHA/EPA/FISH OIL 1,000 MG CAPSULE PO SCH (08:33)
[2023-07-29] MEDS: TRIHEXYPHENIDYL HCL 2 MG TABLET PO SCH ×3 (08:33→16:23)
[2023-07-29] MEDS: GABAPENTIN 400 MG CAPSULE PO SCH ×4 (08:34→20:10)
[2023-07-29] MEDS: LISINOPRIL 10 MG TABLET PO SCH (08:34)
[2023-07-29] MEDS: AmLODIPine BESYLATE 5 MG TABLET PO SCH (08:34)
[2023-07-29] MEDS: DOCUSATE SODIUM 250 MG CAPSULE PO SCH ×2 (08:34→16:23)
[2023-07-29] MEDS: DULoxetine HCL 60 MG CAPSULE PO SCH (08:35)
[2023-07-29] MEDS: OLANZapine 10 MG RAPDIS TABLET PO SCH (20:10)
[2023-07-29] MEDS: ATORVASTATIN CALCIUM 20 MG TABLET PO SCH (20:10)
[2023-07-29] MEDS: MIRTAZAPINE 15 MG TABLET PO SCH (20:11)
[2023-07-29] MEDS: MELATONIN 5 MG TABLET PO SCH (20:11)
[2023-07-29 22:03] VITALS: BP 153/88; PULSE 89; RESP 18; TEMP 98.6; O2SAT 96
[2023-07-30 08:21] VITALS: BP 158/95; PULSE 90; RESP 17; TEMP 98; O2SAT 98
[2023-07-30] MEDS: DULoxetine HCL 60 MG CAPSULE PO SCH (08:36)
[2023-07-30] MEDS: OMEGA-3/DHA/EPA/FISH OIL 1,000 MG CAPSULE PO SCH (08:36)
[2023-07-30] MEDS: GABAPENTIN 400 MG CAPSULE PO SCH ×4 (08:36→20:08)
[2023-07-30] MEDS: TRIHEXYPHENIDYL HCL 2 MG TABLET PO SCH ×3 (08:36→16:16)
[2023-07-30] MEDS: DOCUSATE SODIUM 250 MG CAPSULE PO SCH ×2 (08:36→16:16)
[2023-07-30] MEDS: AmLODIPine BESYLATE 5 MG TABLET PO SCH (08:37)
[2023-07-30] MEDS: LISINOPRIL 10 MG TABLET PO SCH (08:37)
[2023-07-30 20:05] VITALS: BP 145/88; PULSE 95; RESP 18; TEMP 97.8; O2SAT 99
[2023-07-30] MEDS: MELATONIN 5 MG TABLET PO SCH (20:08)
[2023-07-30] MEDS: OLANZapine 10 MG RAPDIS TABLET PO SCH (20:08)
[2023-07-30] MEDS: ATORVASTATIN CALCIUM 20 MG TABLET PO SCH (20:08)
[2023-07-30] MEDS: MIRTAZAPINE 15 MG TABLET PO SCH (20:08)
[2023-07-31] MEDS: TRIHEXYPHENIDYL HCL 2 MG TABLET PO SCH ×3 (08:18→16:24)
[2023-07-31] MEDS: OMEGA-3/DHA/EPA/FISH OIL 1,000 MG CAPSULE PO SCH (08:18)
[2023-07-31] MEDS: DOCUSATE SODIUM 250 MG CAPSULE PO SCH ×2 (08:18→16:24)
[2023-07-31] MEDS: GABAPENTIN 400 MG CAPSULE PO SCH ×4 (08:18→20:22)
[2023-07-31] MEDS: AmLODIPine BESYLATE 5 MG TABLET PO SCH (08:19)
[2023-07-31] MEDS: LISINOPRIL 10 MG TABLET PO SCH (08:20)
[2023-07-31] MEDS: DULoxetine HCL 60 MG CAPSULE PO SCH (08:20)
[2023-07-31 08:40] VITALS: BP 141/85; PULSE 88; RESP 18; TEMP 97.6; O2SAT 97
[2023-07-31] MEDS: ATORVASTATIN CALCIUM 20 MG TABLET PO SCH (20:22)
[2023-07-31] MEDS: MIRTAZAPINE 15 MG TABLET PO SCH (20:22)
[2023-07-31] MEDS: MELATONIN 5 MG TABLET PO SCH (20:23)
[2023-07-31 21:01] VITALS: BP 116/65; PULSE 88; RESP 18; TEMP 97.8; O2SAT 96
[2023-08-01] MEDS: LITHIUM CARBONATE 300 MG CAPSULE PO SCH ×2 (07:18→16:17)
[2023-08-01] MEDS: DOCUSATE SODIUM 250 MG CAPSULE PO SCH ×2 (07:58→16:17)
[2023-08-01] MEDS: TRIHEXYPHENIDYL HCL 2 MG TABLET PO SCH ×3 (07:58→16:17)
[2023-08-01] MEDS: LISINOPRIL 10 MG TABLET PO SCH (08:09)
[2023-08-01] MEDS: OMEGA-3/DHA/EPA/FISH OIL 1,000 MG CAPSULE PO SCH (08:10)
[2023-08-01] MEDS: GABAPENTIN 400 MG CAPSULE PO SCH ×4 (08:10→20:00)
[2023-08-01] MEDS: AmLODIPine BESYLATE 5 MG TABLET PO SCH (08:10)
[2023-08-01 08:11] VITALS: BP 135/85; PULSE 99; RESP 18; TEMP 97.5; O2SAT 96
[2023-08-01] MEDS: DULoxetine HCL 60 MG CAPSULE PO SCH (08:30)
[2023-08-01] MEDS: MELATONIN 5 MG TABLET PO SCH (20:00)
[2023-08-01] MEDS: ATORVASTATIN CALCIUM 20 MG TABLET PO SCH (20:00)
[2023-08-01] MEDS: MIRTAZAPINE 15 MG TABLET PO SCH (20:00)
[2023-08-01 20:25] VITALS: BP 107/67; PULSE 84; RESP 18; TEMP 97.5; O2SAT 97
[2023-08-02] MEDS: LITHIUM CARBONATE 300 MG CAPSULE PO SCH ×2 (06:18→16:06)
[2023-08-02] MEDS: OMEGA-3/DHA/EPA/FISH OIL 1,000 MG CAPSULE PO SCH (08:25)
[2023-08-02] MEDS: DULoxetine HCL 60 MG CAPSULE PO SCH (08:25)
[2023-08-02] MEDS: LISINOPRIL 10 MG TABLET PO SCH (08:25)
[2023-08-02] MEDS: TRIHEXYPHENIDYL HCL 2 MG TABLET PO SCH ×3 (08:25→16:06)
[2023-08-02] MEDS: DOCUSATE SODIUM 250 MG CAPSULE PO SCH ×2 (08:25→16:06)
[2023-08-02] MEDS: GABAPENTIN 400 MG CAPSULE PO SCH ×4 (08:25→21:38)
[2023-08-02] MEDS: AmLODIPine BESYLATE 5 MG TABLET PO SCH (08:26)
[2023-08-02 09:06] VITALS: BP 119/71; PULSE 92; RESP 17; TEMP 97.5; O2SAT 98
[2023-08-02 20:00] VITALS: BP 152/85; PULSE 87; RESP 16; TEMP 97.5; O2SAT 96
[2023-08-02] MEDS: MELATONIN 5 MG TABLET PO SCH (21:38)
[2023-08-02] MEDS: ATORVASTATIN CALCIUM 20 MG TABLET PO SCH (21:38)
[2023-08-02] MEDS: MIRTAZAPINE 15 MG TABLET PO SCH (21:38)
[2023-08-03] VITALS (9 sets, daily range): BP systolic 96–124; BP diastolic 57–78; PULSE 76–100; RESP 16–18; TEMP 97–98; O2SAT 96–100
[2023-08-03] MEDS: LITHIUM CARBONATE 300 MG CAPSULE PO SCH ×2 (06:27→16:16)
[2023-08-03] MEDS: TRIHEXYPHENIDYL HCL 2 MG TABLET PO SCH ×3 (08:10→16:16)
[2023-08-03] MEDS: GABAPENTIN 400 MG CAPSULE PO SCH ×4 (08:10→20:18)
[2023-08-03] MEDS: LISINOPRIL 10 MG TABLET PO SCH (08:10)
[2023-08-03] MEDS: OMEGA-3/DHA/EPA/FISH OIL 1,000 MG CAPSULE PO SCH (08:10)
[2023-08-03] MEDS: DOCUSATE SODIUM 250 MG CAPSULE PO SCH ×2 (08:11→16:16)
[2023-08-03] MEDS: AmLODIPine BESYLATE 5 MG TABLET PO SCH (08:11)
[2023-08-03] MEDS: DULoxetine HCL 60 MG CAPSULE PO SCH (08:11)
[2023-08-03] MEDS: PREGABALIN 50 MG CAPSULE PO PRN (13:45)
[2023-08-03] MEDS: OLANZapine 5 MG RAPDIS TABLET PO PRN (13:45)
[2023-08-03] MEDS: MIRTAZAPINE 15 MG TABLET PO SCH (20:18)
[2023-08-03] MEDS: MELATONIN 5 MG TABLET PO SCH (20:18)
[2023-08-03] MEDS: ATORVASTATIN CALCIUM 20 MG TABLET PO SCH (20:18)
[2023-08-04] MEDS: LITHIUM CARBONATE 300 MG CAPSULE PO SCH ×2 (06:33→16:39)
[2023-08-04] MEDS: TRIHEXYPHENIDYL HCL 2 MG TABLET PO SCH ×3 (09:10→16:39)
[2023-08-04] MEDS: OMEGA-3/DHA/EPA/FISH OIL 1,000 MG CAPSULE PO SCH (09:10)
[2023-08-04] MEDS: DOCUSATE SODIUM 250 MG CAPSULE PO SCH ×2 (09:10→16:39)
[2023-08-04] MEDS: DULoxetine HCL 60 MG CAPSULE PO SCH (09:10)
[2023-08-04] MEDS: GABAPENTIN 400 MG CAPSULE PO SCH ×4 (09:10→21:17)
[2023-08-04] MEDS: LISINOPRIL 10 MG TABLET PO SCH (09:10)
[2023-08-04] MEDS: AmLODIPine BESYLATE 5 MG TABLET PO SCH (09:25)
[2023-08-04 20:45] VITALS: RESP 17; TEMP 98
[2023-08-04] MEDS: MELATONIN 5 MG TABLET PO SCH (21:15)
[2023-08-04] MEDS: ATORVASTATIN CALCIUM 20 MG TABLET PO SCH (21:15)
[2023-08-04] MEDS: MIRTAZAPINE 15 MG TABLET PO SCH (21:16)
[2023-08-05] MEDS: LITHIUM CARBONATE 300 MG CAPSULE PO SCH ×2 (06:04→16:43)
[2023-08-05 08:37] VITALS: BP 118/66; PULSE 96; RESP 17; TEMP 97.8; O2SAT 99
[2023-08-05] MEDS: TRIHEXYPHENIDYL HCL 2 MG TABLET PO SCH ×3 (09:17→16:43)
[2023-08-05] MEDS: AmLODIPine BESYLATE 5 MG TABLET PO SCH (09:17)
[2023-08-05] MEDS: DOCUSATE SODIUM 250 MG CAPSULE PO SCH ×2 (09:17→16:43)
[2023-08-05] MEDS: DULoxetine HCL 60 MG CAPSULE PO SCH (09:17)
[2023-08-05] MEDS: OMEGA-3/DHA/EPA/FISH OIL 1,000 MG CAPSULE PO SCH (09:18)
[2023-08-05] MEDS: LISINOPRIL 10 MG TABLET PO SCH (09:18)
[2023-08-05] MEDS: GABAPENTIN 400 MG CAPSULE PO SCH ×4 (09:18→21:55)
[2023-08-05 20:14] VITALS: BP 115/69; PULSE 89; RESP 18; TEMP 97.8; O2SAT 97
[2023-08-05] MEDS: MELATONIN 5 MG TABLET PO SCH (21:55)
[2023-08-05] MEDS: ATORVASTATIN CALCIUM 20 MG TABLET PO SCH (21:55)
[2023-08-05] MEDS: MIRTAZAPINE 15 MG TABLET PO SCH (21:55)
[2023-08-06] MEDS: LITHIUM CARBONATE 300 MG CAPSULE PO SCH ×2 (06:05→16:12)
[2023-08-06 08:18] VITALS: BP 148/90; PULSE 83; RESP 17; TEMP 97.8; O2SAT 100
[2023-08-06] MEDS: AmLODIPine BESYLATE 5 MG TABLET PO SCH (08:29)
[2023-08-06] MEDS: DOCUSATE SODIUM 250 MG CAPSULE PO SCH ×2 (08:30→16:12)
[2023-08-06] MEDS: OMEGA-3/DHA/EPA/FISH OIL 1,000 MG CAPSULE PO SCH (08:30)
[2023-08-06] MEDS: GABAPENTIN 400 MG CAPSULE PO SCH ×4 (08:30→20:50)
[2023-08-06] MEDS: DULoxetine HCL 60 MG CAPSULE PO SCH (08:38)
[2023-08-06] MEDS: LISINOPRIL 10 MG TABLET PO SCH (08:39)
[2023-08-06 20:06] VITALS: BP 142/88; PULSE 91; RESP 18; TEMP 98; O2SAT 100
[2023-08-06] MEDS: MELATONIN 5 MG TABLET PO SCH (20:49)
[2023-08-06] MEDS: MIRTAZAPINE 15 MG TABLET PO SCH (20:50)
[2023-08-06] MEDS: ATORVASTATIN CALCIUM 20 MG TABLET PO SCH (20:50)
[2023-08-06] MEDS: OLANZapine 5 MG RAPDIS TABLET PO SCH (20:59)
[2023-08-07] MEDS: LITHIUM CARBONATE 300 MG CAPSULE PO SCH ×2 (06:37→16:53)
[2023-08-07] MEDS: AmLODIPine BESYLATE 5 MG TABLET PO SCH (08:28)
[2023-08-07] MEDS: DOCUSATE SODIUM 250 MG CAPSULE PO SCH ×2 (08:28→16:53)
[2023-08-07] MEDS: GABAPENTIN 400 MG CAPSULE PO SCH ×4 (08:28→20:27)
[2023-08-07] MEDS: LISINOPRIL 10 MG TABLET PO SCH (08:28)
[2023-08-07] MEDS: OMEGA-3/DHA/EPA/FISH OIL 1,000 MG CAPSULE PO SCH (08:28)
[2023-08-07] MEDS: DULoxetine HCL 60 MG CAPSULE PO SCH (08:29)
[2023-08-07 11:08] VITALS: BP 130/80; PULSE 79; RESP 18; TEMP 97.9; O2SAT 97
[2023-08-07] MEDS: MELATONIN 5 MG TABLET PO SCH (20:26)
[2023-08-07] MEDS: MIRTAZAPINE 15 MG TABLET PO SCH (20:27)
[2023-08-07] MEDS: OLANZapine 5 MG RAPDIS TABLET PO SCH (20:30)
[2023-08-07] MEDS: ATORVASTATIN CALCIUM 20 MG TABLET PO SCH (21:01)
[2023-08-07 23:42] VITALS: BP 136/78; PULSE 82; RESP 18; TEMP 97.9; O2SAT 96
[2023-08-08] MEDS: LITHIUM CARBONATE 300 MG CAPSULE PO SCH ×2 (06:30→16:55)
[2023-08-08 08:45] VITALS: BP 133/62; PULSE 92; RESP 17; TEMP 98; O2SAT 97
[2023-08-08] MEDS: DOCUSATE SODIUM 250 MG CAPSULE PO SCH ×2 (08:46→16:55)
[2023-08-08] MEDS: DULoxetine HCL 60 MG CAPSULE PO SCH (08:46)
[2023-08-08] MEDS: OMEGA-3/DHA/EPA/FISH OIL 1,000 MG CAPSULE PO SCH (08:46)
[2023-08-08] MEDS: AmLODIPine BESYLATE 5 MG TABLET PO SCH (08:46)
[2023-08-08] MEDS: LISINOPRIL 10 MG TABLET PO SCH (08:47)
[2023-08-08] MEDS: GABAPENTIN 400 MG CAPSULE PO SCH ×4 (08:47→20:26)
[2023-08-08 20:24] VITALS: BP 143/72; PULSE 88; RESP 18; TEMP 98.1; O2SAT 98
[2023-08-08] MEDS: MIRTAZAPINE 15 MG TABLET PO SCH (20:26)
[2023-08-08] MEDS: OLANZapine 5 MG RAPDIS TABLET PO SCH (20:26)
[2023-08-08] MEDS: ATORVASTATIN CALCIUM 20 MG TABLET PO SCH (20:26)
[2023-08-08] MEDS: MELATONIN 5 MG TABLET PO SCH (20:26)
[2023-08-09] MEDS: LITHIUM CARBONATE 300 MG CAPSULE PO SCH ×2 (06:37→16:22)
[2023-08-09] MEDS: DULoxetine HCL 60 MG CAPSULE PO SCH (08:02)
[2023-08-09] MEDS: AmLODIPine BESYLATE 5 MG TABLET PO SCH (08:02)
[2023-08-09] MEDS: OMEGA-3/DHA/EPA/FISH OIL 1,000 MG CAPSULE PO SCH (08:02)
[2023-08-09] MEDS: LISINOPRIL 10 MG TABLET PO SCH (08:02)
[2023-08-09] MEDS: DOCUSATE SODIUM 250 MG CAPSULE PO SCH ×2 (08:02→16:22)
[2023-08-09] MEDS: GABAPENTIN 400 MG CAPSULE PO SCH ×4 (08:02→20:04)
[2023-08-09 08:16] VITALS: BP 142/89; PULSE 77; RESP 18; TEMP 97.9; O2SAT 95
[2023-08-09] MEDS: ATORVASTATIN CALCIUM 20 MG TABLET PO SCH (20:04)
[2023-08-09] MEDS: MIRTAZAPINE 15 MG TABLET PO SCH (20:04)
[2023-08-09] MEDS: MELATONIN 5 MG TABLET PO SCH (20:04)
[2023-08-09] MEDS: OLANZapine 5 MG RAPDIS TABLET PO SCH (20:04)
[2023-08-09 20:25] VITALS: BP 126/68; PULSE 68; RESP 18; TEMP 97.3; O2SAT 97
[2023-08-10] MEDS: LITHIUM CARBONATE 300 MG CAPSULE PO SCH ×2 (06:44→16:51)
[2023-08-10 08:32] VITALS: BP 106/74; PULSE 95; RESP 17; TEMP 97; O2SAT 96
[2023-08-10] MEDS: GABAPENTIN 400 MG CAPSULE PO SCH ×4 (08:34→20:32)
[2023-08-10] MEDS: DOCUSATE SODIUM 250 MG CAPSULE PO SCH ×2 (08:34→16:51)
[2023-08-10] MEDS: OMEGA-3/DHA/EPA/FISH OIL 1,000 MG CAPSULE PO SCH (08:34)
[2023-08-10] MEDS: LISINOPRIL 10 MG TABLET PO SCH (08:34)
[2023-08-10] MEDS: AmLODIPine BESYLATE 5 MG TABLET PO SCH (08:35)
[2023-08-10] MEDS: DULoxetine HCL 60 MG CAPSULE PO SCH (08:35)
[2023-08-10 20:17] VITALS: BP 106/69; PULSE 83; RESP 19; TEMP 97.6; O2SAT 97
[2023-08-10] MEDS: ATORVASTATIN CALCIUM 20 MG TABLET PO SCH (20:32)
[2023-08-10] MEDS: MIRTAZAPINE 15 MG TABLET PO SCH (20:32)
[2023-08-10] MEDS: MELATONIN 5 MG TABLET PO SCH (20:32)
[2023-08-10] MEDS: OLANZapine 5 MG RAPDIS TABLET PO SCH (20:32)
[2023-08-11] MEDS: LITHIUM CARBONATE 300 MG CAPSULE PO SCH ×2 (07:04→15:56)
[2023-08-11] MEDS: OMEGA-3/DHA/EPA/FISH OIL 1,000 MG CAPSULE PO SCH (08:09)
[2023-08-11] MEDS: AmLODIPine BESYLATE 5 MG TABLET PO SCH (08:10)
[2023-08-11] MEDS: DOCUSATE SODIUM 250 MG CAPSULE PO SCH ×2 (08:10→15:56)
[2023-08-11] MEDS: GABAPENTIN 400 MG CAPSULE PO SCH ×4 (08:10→19:58)
[2023-08-11] MEDS: LISINOPRIL 10 MG TABLET PO SCH (08:10)
[2023-08-11] MEDS: DULoxetine HCL 60 MG CAPSULE PO SCH (08:10)
[2023-08-11 08:51] VITALS: BP 109/69; PULSE 81; RESP 16; TEMP 97.7; O2SAT 97
[2023-08-11] MEDS: PREGABALIN 50 MG CAPSULE PO PRN (15:54)
[2023-08-11] MEDS: MIRTAZAPINE 15 MG TABLET PO SCH (19:58)
[2023-08-11] MEDS: MELATONIN 5 MG TABLET PO SCH (19:58)
[2023-08-11] MEDS: OLANZapine 5 MG RAPDIS TABLET PO SCH (19:59)
[2023-08-11] MEDS: ATORVASTATIN CALCIUM 20 MG TABLET PO SCH (19:59)
[2023-08-11 20:04] VITALS: BP 105/69; PULSE 89; RESP 18; TEMP 98.2; O2SAT 98
[2023-08-12] MEDS: LITHIUM CARBONATE 300 MG CAPSULE PO SCH ×2 (06:10→16:47)
[2023-08-12 08:24] VITALS: BP 124/85; PULSE 96; RESP 18; TEMP 98; O2SAT 97
[2023-08-12] MEDS: LISINOPRIL 10 MG TABLET PO SCH (08:36)
[2023-08-12] MEDS: DOCUSATE SODIUM 250 MG CAPSULE PO SCH ×2 (08:37→16:48)
[2023-08-12] MEDS: AmLODIPine BESYLATE 5 MG TABLET PO SCH (08:37)
[2023-08-12] MEDS: GABAPENTIN 400 MG CAPSULE PO SCH ×4 (08:37→21:47)
[2023-08-12] MEDS: OMEGA-3/DHA/EPA/FISH OIL 1,000 MG CAPSULE PO SCH (08:37)
[2023-08-12] MEDS: DULoxetine HCL 60 MG CAPSULE PO SCH (08:40)
[2023-08-12 20:13] VITALS: BP 125/72; PULSE 88; RESP 21; TEMP 98.6; O2SAT 97
[2023-08-12] MEDS: MIRTAZAPINE 15 MG TABLET PO SCH (21:46)
[2023-08-12] MEDS: MELATONIN 5 MG TABLET PO SCH (21:47)
[2023-08-12] MEDS: ATORVASTATIN CALCIUM 20 MG TABLET PO SCH (21:47)
[2023-08-12] MEDS: OLANZapine 5 MG RAPDIS TABLET PO SCH (21:47)
[2023-08-13] MEDS: LITHIUM CARBONATE 300 MG CAPSULE PO SCH ×2 (06:37→16:40)
[2023-08-13 08:21] VITALS: BP 134/68; PULSE 92; RESP 18; TEMP 98; O2SAT 98
[2023-08-13] MEDS: LISINOPRIL 10 MG TABLET PO SCH (10:07)
[2023-08-13] MEDS: OMEGA-3/DHA/EPA/FISH OIL 1,000 MG CAPSULE PO SCH (10:08)
[2023-08-13] MEDS: DULoxetine HCL 60 MG CAPSULE PO SCH (10:09)
[2023-08-13] MEDS: GABAPENTIN 400 MG CAPSULE PO SCH ×4 (10:09→20:05)
[2023-08-13] MEDS: DOCUSATE SODIUM 250 MG CAPSULE PO SCH ×2 (10:09→16:40)
[2023-08-13] MEDS: AmLODIPine BESYLATE 5 MG TABLET PO SCH (10:10)
[2023-08-13] MEDS: MELATONIN 5 MG TABLET PO SCH (20:05)
[2023-08-13] MEDS: MIRTAZAPINE 15 MG TABLET PO SCH (20:05)
[2023-08-13] MEDS: ATORVASTATIN CALCIUM 20 MG TABLET PO SCH (20:06)
[2023-08-13] MEDS: OLANZapine 10 MG RAPDIS TABLET PO SCH (20:07)
[2023-08-13 22:21] VITALS: RESP 18
[2023-08-14] MEDS: LITHIUM CARBONATE 300 MG CAPSULE PO SCH ×2 (06:44→16:06)
[2023-08-14] MEDS: GABAPENTIN 400 MG CAPSULE PO SCH ×4 (08:26→20:01)
[2023-08-14] MEDS: DOCUSATE SODIUM 250 MG CAPSULE PO SCH ×2 (08:26→16:06)
[2023-08-14] MEDS: LISINOPRIL 10 MG TABLET PO SCH (08:26)
[2023-08-14] MEDS: DULoxetine HCL 60 MG CAPSULE PO SCH (08:27)
[2023-08-14] MEDS: AmLODIPine BESYLATE 5 MG TABLET PO SCH (08:27)
[2023-08-14] MEDS: OMEGA-3/DHA/EPA/FISH OIL 1,000 MG CAPSULE PO SCH (08:27)
[2023-08-14] MEDS: ATORVASTATIN CALCIUM 20 MG TABLET PO SCH (20:02)
[2023-08-14] MEDS: OLANZapine 10 MG RAPDIS TABLET PO SCH (20:02)
[2023-08-14] MEDS: MELATONIN 5 MG TABLET PO SCH (20:02)
[2023-08-14] MEDS: MIRTAZAPINE 15 MG TABLET PO SCH (20:02)
[2023-08-14 20:58] VITALS: BP 128/70; PULSE 94; RESP 18; TEMP 98.7; O2SAT 98
[2023-08-15] MEDS: LITHIUM CARBONATE 300 MG CAPSULE PO SCH ×2 (06:35→17:23)
[2023-08-15] MEDS: DOCUSATE SODIUM 250 MG CAPSULE PO SCH ×2 (08:18→17:23)
[2023-08-15] MEDS: LISINOPRIL 10 MG TABLET PO SCH (08:18)
[2023-08-15] MEDS: OMEGA-3/DHA/EPA/FISH OIL 1,000 MG CAPSULE PO SCH (08:18)
[2023-08-15] MEDS: DULoxetine HCL 60 MG CAPSULE PO SCH (08:19)
[2023-08-15] MEDS: GABAPENTIN 400 MG CAPSULE PO SCH ×4 (08:19→21:23)
[2023-08-15] MEDS: AmLODIPine BESYLATE 5 MG TABLET PO SCH (08:19)
[2023-08-15] MEDS: IBUPROFEN 600 MG TABLET PO PRN (17:31)
[2023-08-15 20:59] VITALS: BP 128/72; PULSE 80; RESP 16; TEMP 97.6; O2SAT 99
[2023-08-15] MEDS: ATORVASTATIN CALCIUM 20 MG TABLET PO SCH (21:23)
[2023-08-15] MEDS: OLANZapine 10 MG RAPDIS TABLET PO SCH (21:23)
[2023-08-15] MEDS: MELATONIN 5 MG TABLET PO SCH (21:23)
[2023-08-15] MEDS: MIRTAZAPINE 15 MG TABLET PO SCH (21:23)
[2023-08-16] MEDS: LITHIUM CARBONATE 300 MG CAPSULE PO SCH ×2 (06:43→17:13)
[2023-08-16 08:14] VITALS: BP 134/75; PULSE 98; RESP 18; TEMP 97.8; O2SAT 96
[2023-08-16] MEDS: GABAPENTIN 400 MG CAPSULE PO SCH ×4 (08:14→21:49)
[2023-08-16] MEDS: DULoxetine HCL 60 MG CAPSULE PO SCH (08:14)
[2023-08-16] MEDS: DOCUSATE SODIUM 250 MG CAPSULE PO SCH ×2 (08:14→17:13)
[2023-08-16] MEDS: LISINOPRIL 10 MG TABLET PO SCH (08:14)
[2023-08-16] MEDS: AmLODIPine BESYLATE 5 MG TABLET PO SCH (08:15)
[2023-08-16] MEDS: OMEGA-3/DHA/EPA/FISH OIL 1,000 MG CAPSULE PO SCH (08:15)
[2023-08-16 21:24] VITALS: BP 125/80; PULSE 81; RESP 17; TEMP 97.9; O2SAT 97
[2023-08-16] MEDS: OLANZapine 10 MG RAPDIS TABLET PO SCH (21:48)
[2023-08-16] MEDS: ATORVASTATIN CALCIUM 20 MG TABLET PO SCH (21:49)
[2023-08-16] MEDS: MIRTAZAPINE 15 MG TABLET PO SCH (21:49)
[2023-08-16] MEDS: MELATONIN 5 MG TABLET PO SCH (21:49)
[2023-08-17] MEDS: LITHIUM CARBONATE 300 MG CAPSULE PO SCH ×2 (06:20→16:05)
[2023-08-17 08:06] VITALS: BP 142/78; PULSE 69; RESP 18; TEMP 98; O2SAT 95
[2023-08-17] MEDS: OMEGA-3/DHA/EPA/FISH OIL 1,000 MG CAPSULE PO SCH (08:11)
[2023-08-17] MEDS: DULoxetine HCL 60 MG CAPSULE PO SCH (08:11)
[2023-08-17] MEDS: AmLODIPine BESYLATE 5 MG TABLET PO SCH (08:11)
[2023-08-17] MEDS: GABAPENTIN 400 MG CAPSULE PO SCH ×4 (08:11→20:11)
[2023-08-17] MEDS: DOCUSATE SODIUM 250 MG CAPSULE PO SCH ×2 (08:11→16:05)
[2023-08-17] MEDS: LISINOPRIL 10 MG TABLET PO SCH (08:12)
[2023-08-17] MEDS: OLANZapine 10 MG RAPDIS TABLET PO SCH (20:11)
[2023-08-17] MEDS: MIRTAZAPINE 15 MG TABLET PO SCH (20:11)
[2023-08-17] MEDS: MELATONIN 5 MG TABLET PO SCH (20:11)
[2023-08-17] MEDS: ATORVASTATIN CALCIUM 20 MG TABLET PO SCH (20:11)
[2023-08-17 20:22] VITALS: BP 134/77; PULSE 87; RESP 16; TEMP 97.9; O2SAT 96
[2023-08-18] MEDS: LITHIUM CARBONATE 300 MG CAPSULE PO SCH ×2 (06:48→16:20)
[2023-08-18 08:11] VITALS: BP 134/73; PULSE 92; RESP 19; TEMP 98; O2SAT 95
[2023-08-18] MEDS: DOCUSATE SODIUM 250 MG CAPSULE PO SCH ×2 (08:12→16:20)
[2023-08-18] MEDS: AmLODIPine BESYLATE 5 MG TABLET PO SCH (08:12)
[2023-08-18] MEDS: GABAPENTIN 400 MG CAPSULE PO SCH ×4 (08:12→21:20)
[2023-08-18] MEDS: DULoxetine HCL 60 MG CAPSULE PO SCH (08:12)
[2023-08-18] MEDS: OMEGA-3/DHA/EPA/FISH OIL 1,000 MG CAPSULE PO SCH (08:13)
[2023-08-18] MEDS: LISINOPRIL 10 MG TABLET PO SCH (08:13)
[2023-08-18 20:04] VITALS: BP 112/84; PULSE 84; RESP 18; TEMP 98.1; O2SAT 98
[2023-08-18] MEDS: ATORVASTATIN CALCIUM 20 MG TABLET PO SCH (21:19)
[2023-08-18] MEDS: MELATONIN 5 MG TABLET PO SCH (21:19)
[2023-08-18] MEDS: MIRTAZAPINE 15 MG TABLET PO SCH (21:19)
[2023-08-18] MEDS: OLANZapine 10 MG RAPDIS TABLET PO SCH (21:20)
[2023-08-19] MEDS: LITHIUM CARBONATE 300 MG CAPSULE PO SCH ×2 (07:00→16:21)
[2023-08-19] MEDS: GABAPENTIN 400 MG CAPSULE PO SCH ×4 (08:12→20:09)
[2023-08-19] MEDS: DULoxetine HCL 60 MG CAPSULE PO SCH (08:13)
[2023-08-19] MEDS: DOCUSATE SODIUM 250 MG CAPSULE PO SCH ×2 (08:13→16:21)
[2023-08-19] MEDS: OMEGA-3/DHA/EPA/FISH OIL 1,000 MG CAPSULE PO SCH (08:13)
[2023-08-19] MEDS: AmLODIPine BESYLATE 5 MG TABLET PO SCH (08:13)
[2023-08-19] MEDS: LISINOPRIL 10 MG TABLET PO SCH (08:13)
[2023-08-19 20:05] VITALS: BP 135/71; PULSE 98; RESP 17; TEMP 97.5; O2SAT 98
[2023-08-19] MEDS: MIRTAZAPINE 15 MG TABLET PO SCH (20:09)
[2023-08-19] MEDS: ATORVASTATIN CALCIUM 20 MG TABLET PO SCH (20:09)
[2023-08-19] MEDS: OLANZapine 10 MG RAPDIS TABLET PO SCH (20:09)
[2023-08-19] MEDS: MELATONIN 5 MG TABLET PO SCH (20:10)
[2023-08-20] MEDS: LITHIUM CARBONATE 300 MG CAPSULE PO SCH ×2 (06:06→17:14)
[2023-08-20 08:33] VITALS: BP 130/70; PULSE 99; RESP 17; TEMP 97.6; O2SAT 98
[2023-08-20] MEDS: AmLODIPine BESYLATE 5 MG TABLET PO SCH (08:37)
[2023-08-20] MEDS: DOCUSATE SODIUM 250 MG CAPSULE PO SCH ×2 (08:37→17:14)
[2023-08-20] MEDS: OMEGA-3/DHA/EPA/FISH OIL 1,000 MG CAPSULE PO SCH (08:37)
[2023-08-20] MEDS: GABAPENTIN 400 MG CAPSULE PO SCH ×4 (08:39→20:17)
[2023-08-20] MEDS: DULoxetine HCL 60 MG CAPSULE PO SCH (08:44)
[2023-08-20] MEDS: LISINOPRIL 10 MG TABLET PO SCH (09:09)
[2023-08-20 17:26] LABS: GLUCOMETER DEV NAME(LOC) POC.BV; POC SARS-COV2 AG, FIA POSITIVE (NEGATIVE)
[2023-08-20] MEDS: MIRTAZAPINE 15 MG TABLET PO SCH (20:16)
[2023-08-20] MEDS: MELATONIN 5 MG TABLET PO SCH (20:16)
[2023-08-20] MEDS: OLANZapine 10 MG RAPDIS TABLET PO SCH (20:17)
[2023-08-20] MEDS: ATORVASTATIN CALCIUM 20 MG TABLET PO SCH (20:17)
[2023-08-20 20:55] VITALS: BP 127/80; PULSE 90; RESP 17; TEMP 98.3; O2SAT 97
[2023-08-20 21:50] VITALS: BP 162/72; PULSE 84; RESP 19; TEMP 98.2; O2SAT 97
[2023-08-21 02:04] VITALS: RESP 18; TEMP 97.8
[2023-08-21] MEDS: LITHIUM CARBONATE 300 MG CAPSULE PO SCH ×2 (07:02→16:34)
[2023-08-21 08:45] VITALS: BP 149/84; PULSE 63; RESP 18; TEMP 96.8; O2SAT 98
[2023-08-21] MEDS: LISINOPRIL 10 MG TABLET PO SCH (09:05)
[2023-08-21] MEDS: DULoxetine HCL 60 MG CAPSULE PO SCH (09:05)
[2023-08-21] MEDS: DOCUSATE SODIUM 250 MG CAPSULE PO SCH ×2 (09:05→16:34)
[2023-08-21] MEDS: OMEGA-3/DHA/EPA/FISH OIL 1,000 MG CAPSULE PO SCH (09:06)
[2023-08-21] MEDS: GABAPENTIN 400 MG CAPSULE PO SCH ×4 (09:06→20:52)
[2023-08-21] MEDS: AmLODIPine BESYLATE 5 MG TABLET PO SCH (09:06)
[2023-08-21 17:55] VITALS: BP 149/84; PULSE 63; RESP 19; TEMP 96.8; O2SAT 98
[2023-08-21 20:12] VITALS: BP 135/79; PULSE 63; RESP 19; TEMP 97.8; O2SAT 99
[2023-08-21] MEDS: OLANZapine 10 MG RAPDIS TABLET PO SCH (20:52)
[2023-08-21] MEDS: MELATONIN 5 MG TABLET PO SCH (20:52)
[2023-08-21] MEDS: MIRTAZAPINE 15 MG TABLET PO SCH (20:52)
[2023-08-21] MEDS: ATORVASTATIN CALCIUM 20 MG TABLET PO SCH (20:52)
[2023-08-22 00:32] VITALS: RESP 18
[2023-08-22 05:42] VITALS: RESP 18
[2023-08-22] MEDS: LITHIUM CARBONATE 300 MG CAPSULE PO SCH ×2 (06:51→16:38)
[2023-08-22 08:01] VITALS: BP 131/77; PULSE 88; RESP 18; TEMP 97.4; O2SAT 97
[2023-08-22 08:01] LABS: COVID AG,FIA SOURCE NASAL SWAB
[2023-08-22 08:46] LABS: SARS-COV2 (COVID) ANTIGEN,FIA Positive (Negative)
[2023-08-22] MEDS: DULoxetine HCL 60 MG CAPSULE PO SCH (09:31)
[2023-08-22] MEDS: OMEGA-3/DHA/EPA/FISH OIL 1,000 MG CAPSULE PO SCH (09:31)
[2023-08-22] MEDS: GABAPENTIN 400 MG CAPSULE PO SCH ×4 (09:31→21:22)
[2023-08-22] MEDS: AmLODIPine BESYLATE 5 MG TABLET PO SCH (09:31)
[2023-08-22] MEDS: DOCUSATE SODIUM 250 MG CAPSULE PO SCH ×2 (09:31→16:38)
[2023-08-22] MEDS: LISINOPRIL 10 MG TABLET PO SCH (09:31)
[2023-08-22] MEDS: IBUPROFEN 600 MG TABLET PO PRN (10:22)
[2023-08-22 12:40] VITALS: TEMP 98.5
[2023-08-22 16:33] VITALS: BP 133/72; PULSE 78; RESP 19; TEMP 97.6; O2SAT 98
[2023-08-22 20:02] VITALS: BP 132/67; PULSE 85; RESP 18; TEMP 98; O2SAT 97
[2023-08-22] MEDS: MIRTAZAPINE 15 MG TABLET PO SCH (21:22)
[2023-08-22] MEDS: OLANZapine 10 MG RAPDIS TABLET PO SCH (21:22)
[2023-08-22] MEDS: MELATONIN 5 MG TABLET PO SCH (21:22)
[2023-08-22] MEDS: ATORVASTATIN CALCIUM 20 MG TABLET PO SCH (21:22)
[2023-08-23 01:35] VITALS: RESP 18
[2023-08-23 04:34] VITALS: RESP 18
[2023-08-23] MEDS: LITHIUM CARBONATE 300 MG CAPSULE PO SCH ×2 (06:07→17:13)
[2023-08-23] MEDS: GABAPENTIN 400 MG CAPSULE PO SCH ×4 (09:42→20:59)
[2023-08-23] MEDS: DOCUSATE SODIUM 250 MG CAPSULE PO SCH ×2 (09:42→17:12)
[2023-08-23] MEDS: OMEGA-3/DHA/EPA/FISH OIL 1,000 MG CAPSULE PO SCH (09:43)
[2023-08-23] MEDS: DULoxetine HCL 60 MG CAPSULE PO SCH (09:43)
[2023-08-23 09:52] VITALS: BP 144/98; PULSE 83; RESP 18; TEMP 98.7; O2SAT 98
[2023-08-23] MEDS: AmLODIPine BESYLATE 5 MG TABLET PO SCH (09:53)
[2023-08-23] MEDS: LISINOPRIL 10 MG TABLET PO SCH (09:53)
[2023-08-23 20:24] VITALS: BP 145/96; PULSE 85; RESP 18; TEMP 98.6; O2SAT 98
[2023-08-23] MEDS: MELATONIN 5 MG TABLET PO SCH (20:59)
[2023-08-23] MEDS: MIRTAZAPINE 15 MG TABLET PO SCH (20:59)
[2023-08-23] MEDS: ATORVASTATIN CALCIUM 20 MG TABLET PO SCH (20:59)
[2023-08-23] MEDS: OLANZapine 10 MG RAPDIS TABLET PO SCH (21:00)
[2023-08-24] MEDS: LITHIUM CARBONATE 300 MG CAPSULE PO SCH ×2 (06:49→16:49)
[2023-08-24 07:08] LABS: COVID AG,FIA SOURCE NASAL SWAB
[2023-08-24 07:36] LABS: SARS-COV2 (COVID) ANTIGEN,FIA Positive (Negative)
[2023-08-24] MEDS: AmLODIPine BESYLATE 5 MG TABLET PO SCH (09:25)
[2023-08-24] MEDS: DOCUSATE SODIUM 250 MG CAPSULE PO SCH ×2 (09:25→16:48)
[2023-08-24] MEDS: LISINOPRIL 10 MG TABLET PO SCH (09:26)
[2023-08-24] MEDS: DULoxetine HCL 60 MG CAPSULE PO SCH (09:26)
[2023-08-24] MEDS: OMEGA-3/DHA/EPA/FISH OIL 1,000 MG CAPSULE PO SCH (09:26)
[2023-08-24] MEDS: GABAPENTIN 400 MG CAPSULE PO SCH ×4 (09:26→21:10)
[2023-08-24 10:34] VITALS: BP 117/92; PULSE 89; RESP 18; TEMP 98.7; O2SAT 97
[2023-08-24] MEDS: MELATONIN 5 MG TABLET PO SCH (21:10)
[2023-08-24] MEDS: ATORVASTATIN CALCIUM 20 MG TABLET PO SCH (21:10)
[2023-08-24] MEDS: MIRTAZAPINE 15 MG TABLET PO SCH (21:10)
[2023-08-24] MEDS: OLANZapine 10 MG RAPDIS TABLET PO SCH (21:11)
[2023-08-24 22:11] VITALS: BP 147/95; PULSE 85; RESP 18; TEMP 98; O2SAT 98
[2023-08-25] MEDS: LITHIUM CARBONATE 300 MG CAPSULE PO SCH ×2 (07:01→16:28)
[2023-08-25 08:50] VITALS: BP 117/81; PULSE 96; RESP 18; TEMP 98.1; O2SAT 100
[2023-08-25] MEDS: GABAPENTIN 400 MG CAPSULE PO SCH ×4 (09:29→20:46)
[2023-08-25] MEDS: DOCUSATE SODIUM 250 MG CAPSULE PO SCH ×2 (09:29→16:28)
[2023-08-25] MEDS: OMEGA-3/DHA/EPA/FISH OIL 1,000 MG CAPSULE PO SCH (09:29)
[2023-08-25] MEDS: AmLODIPine BESYLATE 5 MG TABLET PO SCH (09:29)
[2023-08-25] MEDS: LISINOPRIL 10 MG TABLET PO SCH (09:31)
[2023-08-25] MEDS: DULoxetine HCL 60 MG CAPSULE PO SCH (09:32)
[2023-08-25 20:34] VITALS: RESP 18; TEMP 98.6
[2023-08-25] MEDS: MIRTAZAPINE 15 MG TABLET PO SCH (20:47)
[2023-08-25] MEDS: ATORVASTATIN CALCIUM 20 MG TABLET PO SCH (20:47)
[2023-08-25] MEDS: OLANZapine 10 MG RAPDIS TABLET PO SCH (20:47)
[2023-08-25] MEDS: MELATONIN 5 MG TABLET PO SCH (20:47)
[2023-08-26] VITALS: RESP 18; TEMP 98.6
[2023-08-26 04:00] VITALS: RESP 18; TEMP 98.6
[2023-08-26] MEDS: LITHIUM CARBONATE 300 MG CAPSULE PO SCH ×2 (06:35→17:21)
[2023-08-26 06:47] LABS: COVID AG,FIA SOURCE NASAL SWAB
[2023-08-26 07:05] LABS: SARS-COV2 (COVID) ANTIGEN,FIA Negative (Negative)
[2023-08-26 08:49] VITALS: BP 138/84; PULSE 102; RESP 18; TEMP 98; O2SAT 100
[2023-08-26] MEDS: AmLODIPine BESYLATE 5 MG TABLET PO SCH (09:40)
[2023-08-26] MEDS: DOCUSATE SODIUM 250 MG CAPSULE PO SCH ×2 (09:40→17:20)
[2023-08-26] MEDS: LISINOPRIL 10 MG TABLET PO SCH (09:41)
[2023-08-26] MEDS: DULoxetine HCL 60 MG CAPSULE PO SCH (09:41)
[2023-08-26] MEDS: GABAPENTIN 400 MG CAPSULE PO SCH ×4 (09:42→20:55)
[2023-08-26] MEDS: OMEGA-3/DHA/EPA/FISH OIL 1,000 MG CAPSULE PO SCH (09:43)
[2023-08-26] MEDS: OLANZapine 5 MG RAPDIS TABLET PO PRN (14:09)
[2023-08-26 20:43] VITALS: BP 105/68; PULSE 89; RESP 18; TEMP 98.7; O2SAT 98
[2023-08-26] MEDS: MIRTAZAPINE 15 MG TABLET PO SCH (20:55)
[2023-08-26] MEDS: OLANZapine 10 MG RAPDIS TABLET PO SCH (20:57)
[2023-08-26] MEDS: MELATONIN 5 MG TABLET PO SCH (20:57)
[2023-08-26] MEDS: ATORVASTATIN CALCIUM 20 MG TABLET PO SCH (20:57)
[2023-08-27] MEDS: LITHIUM CARBONATE 300 MG CAPSULE PO SCH ×2 (06:59→16:53)
[2023-08-27] MEDS: GABAPENTIN 400 MG CAPSULE PO SCH ×4 (10:19→21:20)
[2023-08-27] MEDS: OMEGA-3/DHA/EPA/FISH OIL 1,000 MG CAPSULE PO SCH (10:19)
[2023-08-27] MEDS: AmLODIPine BESYLATE 5 MG TABLET PO SCH (10:19)
[2023-08-27] MEDS: DOCUSATE SODIUM 250 MG CAPSULE PO SCH ×2 (10:19→16:52)
[2023-08-27] MEDS: LISINOPRIL 10 MG TABLET PO SCH (10:19)
[2023-08-27] MEDS: DULoxetine HCL 60 MG CAPSULE PO SCH (10:21)
[2023-08-27 10:39] VITALS: BP 132/82; PULSE 93; RESP 18; TEMP 98.4; O2SAT 98
[2023-08-27] MEDS: INSULIN LISPRO 100 UNITS/ML SQ PRN ×3 (13:13→21:30)
[2023-08-27 13:26] LABS: GLUCOMETER DEV NAME(LOC) 3E.C; GLUCOSE,POINT OF CARE 198 MG/DL (70-110)
[2023-08-27] MEDS: OLANZapine 5 MG RAPDIS TABLET PO PRN (16:51)
[2023-08-27] MEDS: MetFORMIN HCL 500 MG TABLET PO SCH (16:55)
[2023-08-27 17:15] LABS: GLUCOMETER DEV NAME(LOC) 3E.C; GLUCOSE,POINT OF CARE 147 MG/DL (70-110)
[2023-08-27] MEDS: MELATONIN 5 MG TABLET PO SCH (21:20)
[2023-08-27] MEDS: MIRTAZAPINE 15 MG TABLET PO SCH (21:20)
[2023-08-27] MEDS: ATORVASTATIN CALCIUM 20 MG TABLET PO SCH (21:21)
[2023-08-27] MEDS: OLANZapine 10 MG RAPDIS TABLET PO SCH (21:22)
[2023-08-27 21:53] VITALS: BP 123/63; PULSE 77; RESP 18; TEMP 98; O2SAT 97
[2023-08-27] MEDS: IBUPROFEN 600 MG TABLET PO PRN (22:13)
[2023-08-27 22:46] LABS: GLUCOMETER DEV NAME(LOC) 3E.C; GLUCOSE,POINT OF CARE 141 MG/DL (70-110)
[2023-08-28 06:21] LABS: GLUCOMETER DEV NAME(LOC) 3E.C; GLUCOSE,POINT OF CARE 153 MG/DL (70-110)
[2023-08-28] MEDS: INSULIN LISPRO 100 UNITS/ML SQ PRN ×3 (06:38→21:21)
[2023-08-28] MEDS: MetFORMIN HCL 500 MG TABLET PO SCH ×2 (06:54→17:08)
[2023-08-28] MEDS: LITHIUM CARBONATE 300 MG CAPSULE PO SCH ×2 (06:54→17:07)
[2023-08-28 07:08] LABS: BASOPHILS % (AUTO) 0.1 % (0.0-2.0); EOSINOPHILS % (AUTO) 0.1 % (1.0-6.0); HEMATOCRIT 34.6 % (36-46); HEMOGLOBIN 12.1 g/dL (12.0-16.0); LYMPHOCYTES # (AUTO) 1.2 K/uL (1.0-4.8); LYMPHOCYTES % (AUTO) 23.1 % (22.0-44.0); MEAN CORPUSCULAR HEMOGLOBIN 33.3 pg (26.0-34.0); MEAN CORPUSCULAR HGB CONC 34.9 G/dL (31.0-37.0); MEAN CORPUSCULAR VOLUME 96 fL (80-100); MONOCYTES # (AUTO) 0.5 K/uL (0.1-1.0); MONOCYTES % (AUTO) 9.4 % (2.0-9.0); NEUTROPHILS # (AUTO) 3.4 K/uL (1.8-7.7); NEUTROPHILS % (AUTO) 67.3 % (40.0-70.0); PLATELET COUNT (AUTO) 216 K/uL (150-450); RED BLOOD CELL COUNT(AUTO) 3.62 MIL/uL (4.00-5.20); RED CELL DISTRIBUTION WIDTH 13.1 % (11.5-14.5)
[2023-08-28 07:28] LABS: ALANINE AMINOTRANSFERASE 22 U/L (12-78); ALBUMIN 3.4 g/dL (3.4-5.0); ALKALINE PHOSPHATASE 98 U/L (46-116); ANION GAP 6 mmol/L (8-16); ASPARTATE AMINOTRANSFERASE 7 U/L (15-37); BILIRUBIN,TOTAL 0.4 mg/dL (0.1-1.0); CALCIUM, TOTAL 9.2 mg/dL (8.8-10.5); CARBON DIOXIDE 28 mmol/L (22-29); CHLORIDE 102 mmol/L (98-107); CREATININE 0.74 mg/dL (0.60-1.30); GLOMERULAR FILTR. RATE CALC > 60 mL/min (>60); GLUCOSE,RANDOM 181 mg/dL (70-110); HEMOGLOBIN A1C 6.4 % (3.8-5.6); POTASSIUM 4.3 mmol/L (3.5-5.1); SODIUM SERUM 136 mmol/L (136-145); TOTAL PROTEIN, SERUM 7.1 g/dL (6.4-8.2); UREA NITROGEN, BLOOD 15 mg/dL (7-18)
[2023-08-28 08:45] VITALS: BP 114/97; PULSE 57; RESP 17; TEMP 97.1; O2SAT 96
[2023-08-28] MEDS: DULoxetine HCL 60 MG CAPSULE PO SCH (09:44)
[2023-08-28] MEDS: LISINOPRIL 10 MG TABLET PO SCH (09:44)
[2023-08-28] MEDS: GABAPENTIN 400 MG CAPSULE PO SCH ×4 (09:45→21:05)
[2023-08-28] MEDS: DOCUSATE SODIUM 250 MG CAPSULE PO SCH ×2 (09:45→17:07)
[2023-08-28] MEDS: AmLODIPine BESYLATE 5 MG TABLET PO SCH (09:45)
[2023-08-28] MEDS: OMEGA-3/DHA/EPA/FISH OIL 1,000 MG CAPSULE PO SCH (09:45)
[2023-08-28] MEDS: OLANZapine 5 MG RAPDIS TABLET PO PRN (11:32)
[2023-08-28 17:16] LABS: GLUCOMETER DEV NAME(LOC) 3E.C; GLUCOSE,POINT OF CARE 184 MG/DL (70-110)
[2023-08-28 20:51] LABS: GLUCOMETER DEV NAME(LOC) 3E.C; GLUCOSE,POINT OF CARE 132 MG/DL (70-110)
[2023-08-28] MEDS: MIRTAZAPINE 15 MG TABLET PO SCH (21:04)
[2023-08-28] MEDS: OLANZapine 10 MG RAPDIS TABLET PO SCH (21:04)
[2023-08-28] MEDS: MELATONIN 5 MG TABLET PO SCH (21:05)
[2023-08-28] MEDS: ATORVASTATIN CALCIUM 20 MG TABLET PO SCH (21:05)
[2023-08-28 23:34] VITALS: BP 141/73; PULSE 95; RESP 18; TEMP 97.8; O2SAT 99
[2023-08-29 06:42] LABS: GLUCOMETER DEV NAME(LOC) 3E.C; GLUCOSE,POINT OF CARE 165 MG/DL (70-110)
[2023-08-29] MEDS: LITHIUM CARBONATE 300 MG CAPSULE PO SCH ×2 (06:56→16:25)
[2023-08-29] MEDS: MetFORMIN HCL 500 MG TABLET PO SCH ×2 (06:56→16:25)
[2023-08-29] MEDS: INSULIN LISPRO 100 UNITS/ML SQ PRN ×4 (06:57→20:37)
[2023-08-29] MEDS: OMEGA-3/DHA/EPA/FISH OIL 1,000 MG CAPSULE PO SCH (08:53)
[2023-08-29] MEDS: DULoxetine HCL 60 MG CAPSULE PO SCH (08:53)
[2023-08-29] MEDS: GABAPENTIN 400 MG CAPSULE PO SCH ×4 (08:53→20:36)
[2023-08-29] MEDS: AmLODIPine BESYLATE 5 MG TABLET PO SCH (08:54)
[2023-08-29] MEDS: DOCUSATE SODIUM 250 MG CAPSULE PO SCH ×2 (08:54→16:25)
[2023-08-29] MEDS: LISINOPRIL 10 MG TABLET PO SCH (08:54)
[2023-08-29 10:25] VITALS: BP 132/74; PULSE 98; RESP 19; TEMP 97.2; O2SAT 99
[2023-08-29 11:41] LABS: GLUCOMETER DEV NAME(LOC) 3E.C; GLUCOSE,POINT OF CARE 165 MG/DL (70-110)
[2023-08-29 17:11] LABS: GLUCOMETER DEV NAME(LOC) 3E.C; GLUCOSE,POINT OF CARE 150 MG/DL (70-110)
[2023-08-29 20:13] VITALS: BP 131/81; PULSE 96; RESP 18; TEMP 98.1; O2SAT 96
[2023-08-29] MEDS: ATORVASTATIN CALCIUM 20 MG TABLET PO SCH (20:35)
[2023-08-29] MEDS: MELATONIN 5 MG TABLET PO SCH (20:35)
[2023-08-29 20:36] LABS: GLUCOMETER DEV NAME(LOC) 3E.C; GLUCOSE,POINT OF CARE 133 MG/DL (70-110)
[2023-08-29] MEDS: OLANZapine 10 MG RAPDIS TABLET PO SCH (20:36)
[2023-08-29] MEDS: MIRTAZAPINE 15 MG TABLET PO SCH (20:36)
[2023-08-30] MEDS: INSULIN LISPRO 100 UNITS/ML SQ PRN ×4 (06:49→20:47)
[2023-08-30 06:51] LABS: GLUCOMETER DEV NAME(LOC) 3E.C; GLUCOSE,POINT OF CARE 158 MG/DL (70-110)
[2023-08-30] MEDS: MetFORMIN HCL 500 MG TABLET PO SCH ×2 (06:54→16:36)
[2023-08-30] MEDS: LITHIUM CARBONATE 300 MG CAPSULE PO SCH ×2 (06:54→16:35)
[2023-08-30] MEDS: OMEGA-3/DHA/EPA/FISH OIL 1,000 MG CAPSULE PO SCH (08:38)
[2023-08-30] MEDS: LISINOPRIL 10 MG TABLET PO SCH (08:38)
[2023-08-30] MEDS: DOCUSATE SODIUM 250 MG CAPSULE PO SCH ×2 (08:38→16:35)
[2023-08-30] MEDS: AmLODIPine BESYLATE 5 MG TABLET PO SCH (08:39)
[2023-08-30] MEDS: DULoxetine HCL 60 MG CAPSULE PO SCH (08:39)
[2023-08-30] MEDS: GABAPENTIN 400 MG CAPSULE PO SCH ×4 (08:39→20:45)
[2023-08-30 09:24] VITALS: BP 121/95; PULSE 90; RESP 18; TEMP 97.6; O2SAT 97
[2023-08-30 09:25] VITALS: BP 121/92; PULSE 90; RESP 18; TEMP 97.6; O2SAT 97
[2023-08-30 11:36] LABS: GLUCOMETER DEV NAME(LOC) 3E.C; GLUCOSE,POINT OF CARE 172 MG/DL (70-110)
[2023-08-30 17:11] LABS: GLUCOMETER DEV NAME(LOC) 3E.C; GLUCOSE,POINT OF CARE 204 MG/DL (70-110)
[2023-08-30 20:18] VITALS: BP 142/79; PULSE 100; RESP 18; TEMP 97.7; O2SAT 100
[2023-08-30 20:36] LABS: GLUCOMETER DEV NAME(LOC) 3E.C; GLUCOSE,POINT OF CARE 119 MG/DL (70-110)
[2023-08-30] MEDS: OLANZapine 10 MG RAPDIS TABLET PO SCH (20:45)
[2023-08-30] MEDS: MIRTAZAPINE 15 MG TABLET PO SCH (20:45)
[2023-08-30] MEDS: ATORVASTATIN CALCIUM 20 MG TABLET PO SCH (20:46)
[2023-08-30] MEDS: MELATONIN 5 MG TABLET PO SCH (20:46)
[2023-08-31 06:36] LABS: GLUCOMETER DEV NAME(LOC) 3E.C; GLUCOSE,POINT OF CARE 130 MG/DL (70-110)
[2023-08-31] MEDS: MetFORMIN HCL 500 MG TABLET PO SCH ×2 (06:44→17:04)
[2023-08-31] MEDS: LITHIUM CARBONATE 300 MG CAPSULE PO SCH ×2 (06:45→11:33)
[2023-08-31] MEDS: INSULIN LISPRO 100 UNITS/ML SQ PRN ×3 (06:45→21:59)
[2023-08-31 08:30] VITALS: RESP 18
[2023-08-31] MEDS: AmLODIPine BESYLATE 5 MG TABLET PO SCH (11:33)
[2023-08-31] MEDS: LISINOPRIL 10 MG TABLET PO SCH (11:33)
[2023-08-31] MEDS: PREGABALIN 50 MG CAPSULE PO PRN (11:33)
[2023-08-31] MEDS: OMEGA-3/DHA/EPA/FISH OIL 1,000 MG CAPSULE PO SCH (11:33)
[2023-08-31] MEDS: DULoxetine HCL 60 MG CAPSULE PO SCH (11:34)
[2023-08-31] MEDS: GABAPENTIN 400 MG CAPSULE PO SCH ×4 (11:34→20:58)
[2023-08-31] MEDS: DOCUSATE SODIUM 250 MG CAPSULE PO SCH ×2 (11:35→17:04)
[2023-08-31 14:35] LABS: GLUCOMETER DEV NAME(LOC) 3E.C; GLUCOSE,POINT OF CARE 175 MG/DL (70-110)
[2023-08-31 17:01] LABS: GLUCOMETER DEV NAME(LOC) 3E.C; GLUCOSE,POINT OF CARE 104 MG/DL (70-110)
[2023-08-31 20:21] LABS: GLUCOMETER DEV NAME(LOC) 3E.C; GLUCOSE,POINT OF CARE 122 MG/DL (70-110)
[2023-08-31] MEDS: ATORVASTATIN CALCIUM 20 MG TABLET PO SCH (20:57)
[2023-08-31] MEDS: MELATONIN 5 MG TABLET PO SCH (20:57)
[2023-08-31] MEDS: MIRTAZAPINE 15 MG TABLET PO SCH (20:58)
[2023-08-31] MEDS: OLANZapine 10 MG RAPDIS TABLET PO SCH (21:00)
[2023-08-31 21:22] VITALS: BP 117/66; PULSE 85; RESP 18; TEMP 98.2; O2SAT 99
[2023-09-01] VITALS (11 sets, daily range): BP systolic 106–138; BP diastolic 58–89; PULSE 75–100; RESP 16–20; TEMP 98–98.7; O2SAT 95–99
[2023-09-01] MEDS: LITHIUM CARBONATE 300 MG CAPSULE PO SCH ×2 (07:00→16:28)
[2023-09-01] MEDS: MetFORMIN HCL 500 MG TABLET PO SCH ×2 (07:00→16:28)
[2023-09-01] MEDS: INSULIN LISPRO 100 UNITS/ML SQ PRN ×2 (07:01→17:22)
[2023-09-01 07:06] LABS: GLUCOMETER DEV NAME(LOC) 3E.C; GLUCOSE,POINT OF CARE 146 MG/DL (70-110)
[2023-09-01] MEDS: OMEGA-3/DHA/EPA/FISH OIL 1,000 MG CAPSULE PO SCH (08:29)
[2023-09-01] MEDS: GABAPENTIN 400 MG CAPSULE PO SCH ×4 (08:29→20:06)
[2023-09-01] MEDS: DULoxetine HCL 60 MG CAPSULE PO SCH (08:30)
[2023-09-01] MEDS: DOCUSATE SODIUM 250 MG CAPSULE PO SCH ×2 (08:30→16:28)
[2023-09-01] MEDS: AmLODIPine BESYLATE 5 MG TABLET PO SCH (09:52)
[2023-09-01] MEDS: LISINOPRIL 10 MG TABLET PO SCH (09:52)
[2023-09-01 11:46] LABS: GLUCOMETER DEV NAME(LOC) 3E.C; GLUCOSE,POINT OF CARE 82 MG/DL (70-110)
[2023-09-01 17:21] LABS: GLUCOMETER DEV NAME(LOC) 3E.C; GLUCOSE,POINT OF CARE 141 MG/DL (70-110)
[2023-09-01] MEDS: OLANZapine 10 MG RAPDIS TABLET PO SCH (20:06)
[2023-09-01] MEDS: MIRTAZAPINE 15 MG TABLET PO SCH (20:06)
[2023-09-01] MEDS: ATORVASTATIN CALCIUM 20 MG TABLET PO SCH (20:06)
[2023-09-01] MEDS: MELATONIN 5 MG TABLET PO SCH (20:06)
[2023-09-01 21:26] LABS: GLUCOMETER DEV NAME(LOC) 3E.C; GLUCOSE,POINT OF CARE 103 MG/DL (70-110)
[2023-09-02 06:06] LABS: GLUCOMETER DEV NAME(LOC) 3E.C; GLUCOSE,POINT OF CARE 154 MG/DL (70-110)
[2023-09-02] MEDS: MetFORMIN HCL 500 MG TABLET PO SCH ×2 (06:40→16:51)
[2023-09-02] MEDS: LITHIUM CARBONATE 300 MG CAPSULE PO SCH ×2 (06:40→16:50)
[2023-09-02] MEDS: INSULIN LISPRO 100 UNITS/ML SQ PRN (06:41)
[2023-09-02 08:15] LABS: CHOL/HDL RATIO 2.4 (3.9-5.7)
[2023-09-02] MEDS: OMEGA-3/DHA/EPA/FISH OIL 1,000 MG CAPSULE PO SCH (09:38)
[2023-09-02] MEDS: GABAPENTIN 400 MG CAPSULE PO SCH ×4 (09:39→20:46)
[2023-09-02] MEDS: DULoxetine HCL 60 MG CAPSULE PO SCH (09:39)
[2023-09-02] MEDS: DOCUSATE SODIUM 250 MG CAPSULE PO SCH ×2 (09:39→16:50)
[2023-09-02] MEDS: AmLODIPine BESYLATE 5 MG TABLET PO SCH (09:40)
[2023-09-02] MEDS: LISINOPRIL 10 MG TABLET PO SCH (09:40)
[2023-09-02 10:11] VITALS: BP 112/69; PULSE 97; RESP 17; TEMP 98.4; O2SAT 97
[2023-09-02 10:37] VITALS: BP 159/108; PULSE 88; RESP 18; TEMP 98.3; O2SAT 97
[2023-09-02 11:41] LABS: GLUCOMETER DEV NAME(LOC) 3E.C; GLUCOSE,POINT OF CARE 134 MG/DL (70-110)
[2023-09-02 17:11] LABS: GLUCOMETER DEV NAME(LOC) 3E.C; GLUCOSE,POINT OF CARE 117 MG/DL (70-110)
[2023-09-02 20:01] LABS: GLUCOMETER DEV NAME(LOC) 3E.C; GLUCOSE,POINT OF CARE 121 MG/DL (70-110)
[2023-09-02 20:35] VITALS: BP 116/65; PULSE 90; RESP 18; TEMP 98.2; O2SAT 98
[2023-09-02] MEDS: MELATONIN 5 MG TABLET PO SCH (20:45)
[2023-09-02] MEDS: MIRTAZAPINE 15 MG TABLET PO SCH (20:45)
[2023-09-02] MEDS: ATORVASTATIN CALCIUM 20 MG TABLET PO SCH (20:46)
[2023-09-02] MEDS: OLANZapine 10 MG RAPDIS TABLET PO SCH (20:47)
[2023-09-03 06:41] LABS: GLUCOMETER DEV NAME(LOC) 3E.C; GLUCOSE,POINT OF CARE 129 MG/DL (70-110)
[2023-09-03] MEDS: LITHIUM CARBONATE 300 MG CAPSULE PO SCH ×2 (06:54→16:18)
[2023-09-03] MEDS: MetFORMIN HCL 500 MG TABLET PO SCH ×2 (06:54→16:18)
[2023-09-03] MEDS: DOCUSATE SODIUM 250 MG CAPSULE PO SCH ×2 (08:28→16:18)
[2023-09-03] MEDS: LISINOPRIL 10 MG TABLET PO SCH (08:29)
[2023-09-03] MEDS: GABAPENTIN 400 MG CAPSULE PO SCH ×4 (08:29→20:46)
[2023-09-03] MEDS: DULoxetine HCL 60 MG CAPSULE PO SCH (08:29)
[2023-09-03] MEDS: OMEGA-3/DHA/EPA/FISH OIL 1,000 MG CAPSULE PO SCH (08:29)
[2023-09-03] MEDS: AmLODIPine BESYLATE 5 MG TABLET PO SCH (08:29)
[2023-09-03 09:47] VITALS: BP 115/84; PULSE 90; RESP 20; TEMP 97.4; O2SAT 97
[2023-09-03 17:11] LABS: GLUCOMETER DEV NAME(LOC) 3E.C; GLUCOSE,POINT OF CARE 192 MG/DL (70-110)
[2023-09-03] MEDS: INSULIN LISPRO 100 UNITS/ML SQ PRN ×2 (17:15→21:13)
[2023-09-03 20:06] LABS: GLUCOMETER DEV NAME(LOC) 3E.C; GLUCOSE,POINT OF CARE 86 MG/DL (70-110)
[2023-09-03 20:36] VITALS: BP 117/80; PULSE 78; RESP 18; TEMP 97.5; O2SAT 98
[2023-09-03] MEDS: MIRTAZAPINE 15 MG TABLET PO SCH (20:46)
[2023-09-03] MEDS: OLANZapine 10 MG RAPDIS TABLET PO SCH (20:47)
[2023-09-03] MEDS: ATORVASTATIN CALCIUM 20 MG TABLET PO SCH (20:47)
[2023-09-03] MEDS: MELATONIN 5 MG TABLET PO SCH (20:53)
[2023-09-04] MEDS: LITHIUM CARBONATE 300 MG CAPSULE PO SCH ×2 (06:52→17:46)
[2023-09-04] MEDS: MetFORMIN HCL 500 MG TABLET PO SCH ×2 (06:52→17:46)
[2023-09-04] MEDS: INSULIN LISPRO 100 UNITS/ML SQ PRN ×3 (06:53→17:47)
[2023-09-04 06:56] LABS: GLUCOMETER DEV NAME(LOC) 3E.C; GLUCOSE,POINT OF CARE 102 MG/DL (70-110)
[2023-09-04] MEDS: DULoxetine HCL 60 MG CAPSULE PO SCH (09:06)
[2023-09-04] MEDS: OLANZapine 5 MG RAPDIS TABLET PO PRN (09:06)
[2023-09-04] MEDS: GABAPENTIN 400 MG CAPSULE PO SCH ×4 (09:06→21:25)
[2023-09-04] MEDS: AmLODIPine BESYLATE 5 MG TABLET PO SCH (09:07)
[2023-09-04] MEDS: OMEGA-3/DHA/EPA/FISH OIL 1,000 MG CAPSULE PO SCH (09:07)
[2023-09-04] MEDS: DOCUSATE SODIUM 250 MG CAPSULE PO SCH ×2 (09:07→17:46)
[2023-09-04] MEDS: LISINOPRIL 10 MG TABLET PO SCH (09:07)
[2023-09-04 09:54] VITALS: BP 126/72; PULSE 86; RESP 18; TEMP 98.2; O2SAT 96
[2023-09-04 11:31] LABS: GLUCOMETER DEV NAME(LOC) 3E.C; GLUCOSE,POINT OF CARE 162 MG/DL (70-110)
[2023-09-04 16:16] LABS: GLUCOMETER DEV NAME(LOC) 3E.C; GLUCOSE,POINT OF CARE 146 MG/DL (70-110)
[2023-09-04 20:31] LABS: GLUCOMETER DEV NAME(LOC) 3E.C; GLUCOSE,POINT OF CARE 87 MG/DL (70-110)
[2023-09-04 21:09] VITALS: BP 131/70; PULSE 83; RESP 19; TEMP 97; O2SAT 96
[2023-09-04] MEDS: ATORVASTATIN CALCIUM 20 MG TABLET PO SCH (21:26)
[2023-09-04] MEDS: MIRTAZAPINE 15 MG TABLET PO SCH (21:26)
[2023-09-04] MEDS: MELATONIN 5 MG TABLET PO SCH (21:26)
[2023-09-04] MEDS: OLANZapine 10 MG RAPDIS TABLET PO SCH (21:27)
[2023-09-05 06:11] LABS: GLUCOMETER DEV NAME(LOC) 3E.C; GLUCOSE,POINT OF CARE 140 MG/DL (70-110)
[2023-09-05] MEDS: MetFORMIN HCL 500 MG TABLET PO SCH ×2 (06:35→16:17)
[2023-09-05] MEDS: LITHIUM CARBONATE 300 MG CAPSULE PO SCH ×2 (06:35→16:17)
[2023-09-05] MEDS: DULoxetine HCL 60 MG CAPSULE PO SCH (08:52)
[2023-09-05] MEDS: DOCUSATE SODIUM 250 MG CAPSULE PO SCH ×2 (08:52→16:17)
[2023-09-05] MEDS: GABAPENTIN 400 MG CAPSULE PO SCH ×4 (08:52→21:29)
[2023-09-05] MEDS: OMEGA-3/DHA/EPA/FISH OIL 1,000 MG CAPSULE PO SCH (08:52)
[2023-09-05] MEDS: AmLODIPine BESYLATE 5 MG TABLET PO SCH (08:52)
[2023-09-05] MEDS: LISINOPRIL 10 MG TABLET PO SCH (08:53)
[2023-09-05 09:33] VITALS: BP 112/67; PULSE 54; RESP 20; TEMP 97.6; O2SAT 95
[2023-09-05 11:41] LABS: GLUCOMETER DEV NAME(LOC) 3E.C; GLUCOSE,POINT OF CARE 140 MG/DL (70-110)
[2023-09-05 16:51] LABS: GLUCOMETER DEV NAME(LOC) 3E.C; GLUCOSE,POINT OF CARE 139 MG/DL (70-110)
[2023-09-05 20:39] VITALS: BP 125/88; PULSE 74; RESP 18; TEMP 97.9; O2SAT 97
[2023-09-05 20:46] LABS: GLUCOMETER DEV NAME(LOC) 3E.C; GLUCOSE,POINT OF CARE 118 MG/DL (70-110)
[2023-09-05] MEDS: MIRTAZAPINE 15 MG TABLET PO SCH (21:28)
[2023-09-05] MEDS: MELATONIN 5 MG TABLET PO SCH (21:28)
[2023-09-05] MEDS: ATORVASTATIN CALCIUM 20 MG TABLET PO SCH (21:29)
[2023-09-05] MEDS: OLANZapine 10 MG RAPDIS TABLET PO SCH (21:30)
[2023-09-05] MEDS: INSULIN LISPRO 100 UNITS/ML SQ PRN (21:38)
[2023-09-06] MEDS: INSULIN LISPRO 100 UNITS/ML SQ PRN ×2 (06:32→17:29)
[2023-09-06 06:41] LABS: GLUCOMETER DEV NAME(LOC) 3E.C; GLUCOSE,POINT OF CARE 116 MG/DL (70-110)
[2023-09-06] MEDS: MetFORMIN HCL 500 MG TABLET PO SCH ×2 (06:55→17:01)
[2023-09-06] MEDS: LITHIUM CARBONATE 300 MG CAPSULE PO SCH ×2 (06:55→17:01)
[2023-09-06] MEDS: GABAPENTIN 400 MG CAPSULE PO SCH ×4 (08:50→20:49)
[2023-09-06] MEDS: OMEGA-3/DHA/EPA/FISH OIL 1,000 MG CAPSULE PO SCH (08:50)
[2023-09-06] MEDS: DULoxetine HCL 60 MG CAPSULE PO SCH (08:50)
[2023-09-06] MEDS: AmLODIPine BESYLATE 5 MG TABLET PO SCH (08:50)
[2023-09-06] MEDS: LISINOPRIL 10 MG TABLET PO SCH (08:51)
[2023-09-06] MEDS: DOCUSATE SODIUM 250 MG CAPSULE PO SCH ×2 (08:51→17:01)
[2023-09-06] MEDS: OLANZapine 5 MG RAPDIS TABLET PO PRN (08:53)
[2023-09-06 10:21] VITALS: RESP 16
[2023-09-06 11:26] LABS: GLUCOMETER DEV NAME(LOC) 3E.C; GLUCOSE,POINT OF CARE 120 MG/DL (70-110)
[2023-09-06] MEDS: PREGABALIN 50 MG CAPSULE PO PRN (13:05)
[2023-09-06 17:42] LABS: GLUCOMETER DEV NAME(LOC) 3E.C; GLUCOSE,POINT OF CARE 148 MG/DL (70-110)
[2023-09-06 20:35] LABS: GLUCOMETER DEV NAME(LOC) 3E.C; GLUCOSE,POINT OF CARE 93 MG/DL (70-110)
[2023-09-06] MEDS: MIRTAZAPINE 15 MG TABLET PO SCH (20:48)
[2023-09-06] MEDS: OLANZapine 10 MG RAPDIS TABLET PO SCH (20:49)
[2023-09-06] MEDS: ATORVASTATIN CALCIUM 20 MG TABLET PO SCH (20:49)
[2023-09-06] MEDS: MELATONIN 5 MG TABLET PO SCH (20:49)
[2023-09-06 21:25] VITALS: BP 147/75; PULSE 90; RESP 19; TEMP 97.7; O2SAT 97
[2023-09-07 05:42] LABS: GLUCOMETER DEV NAME(LOC) 3E.C; GLUCOSE,POINT OF CARE 125 MG/DL (70-110)
[2023-09-07] MEDS: MetFORMIN HCL 500 MG TABLET PO SCH ×2 (06:34→17:39)
[2023-09-07] MEDS: LITHIUM CARBONATE 300 MG CAPSULE PO SCH ×2 (06:34→16:50)
[2023-09-07] MEDS: AmLODIPine BESYLATE 5 MG TABLET PO SCH (11:02)
[2023-09-07] MEDS: DULoxetine HCL 60 MG CAPSULE PO SCH (11:02)
[2023-09-07] MEDS: GABAPENTIN 400 MG CAPSULE PO SCH ×4 (11:02→20:49)
[2023-09-07] MEDS: OMEGA-3/DHA/EPA/FISH OIL 1,000 MG CAPSULE PO SCH (11:02)
[2023-09-07] MEDS: LISINOPRIL 10 MG TABLET PO SCH (11:02)
[2023-09-07] MEDS: DOCUSATE SODIUM 250 MG CAPSULE PO SCH ×2 (11:02→16:50)
[2023-09-07 11:26] LABS: GLUCOMETER DEV NAME(LOC) 3E.C; GLUCOSE,POINT OF CARE 135 MG/DL (70-110)
[2023-09-07 11:30] VITALS: BP 135/79; PULSE 78; RESP 18; TEMP 97.2; O2SAT 99
[2023-09-07] MEDS: IBUPROFEN 600 MG TABLET PO PRN (14:37)
[2023-09-07 17:01] LABS: GLUCOMETER DEV NAME(LOC) 3E.C; GLUCOSE,POINT OF CARE 139 MG/DL (70-110)
[2023-09-07 20:36] LABS: GLUCOMETER DEV NAME(LOC) 3E.C; GLUCOSE,POINT OF CARE 110 MG/DL (70-110)
[2023-09-07] MEDS: OLANZapine 10 MG RAPDIS TABLET PO SCH (20:49)
[2023-09-07] MEDS: MIRTAZAPINE 15 MG TABLET PO SCH (20:49)
[2023-09-07] MEDS: MELATONIN 5 MG TABLET PO SCH (20:50)
[2023-09-07] MEDS: ATORVASTATIN CALCIUM 20 MG TABLET PO SCH (20:50)
[2023-09-07 22:07] VITALS: BP 127/68; PULSE 77; RESP 18; TEMP 97.5; O2SAT 99
[2023-09-08 05:36] LABS: GLUCOMETER DEV NAME(LOC) 3E.C; GLUCOSE,POINT OF CARE 103 MG/DL (70-110)
[2023-09-08] MEDS: MetFORMIN HCL 500 MG TABLET PO SCH ×2 (06:31→16:58)
[2023-09-08] MEDS: LITHIUM CARBONATE 300 MG CAPSULE PO SCH ×2 (06:31→16:58)
[2023-09-08] MEDS: DULoxetine HCL 60 MG CAPSULE PO SCH (09:39)
[2023-09-08] MEDS: LISINOPRIL 10 MG TABLET PO SCH (09:39)
[2023-09-08] MEDS: DOCUSATE SODIUM 250 MG CAPSULE PO SCH ×2 (09:39→16:58)
[2023-09-08] MEDS: GABAPENTIN 400 MG CAPSULE PO SCH ×4 (09:39→20:56)
[2023-09-08] MEDS: AmLODIPine BESYLATE 5 MG TABLET PO SCH (09:40)
[2023-09-08] MEDS: OMEGA-3/DHA/EPA/FISH OIL 1,000 MG CAPSULE PO SCH (09:41)
[2023-09-08 10:29] VITALS: BP 151/78; PULSE 89; RESP 17; TEMP 97.5; O2SAT 95
[2023-09-08 12:06] LABS: GLUCOMETER DEV NAME(LOC) 3E.C; GLUCOSE,POINT OF CARE 139 MG/DL (70-110)
[2023-09-08 17:26] LABS: GLUCOMETER DEV NAME(LOC) 3E.C; GLUCOSE,POINT OF CARE 109 MG/DL (70-110)
[2023-09-08] MEDS: ATORVASTATIN CALCIUM 20 MG TABLET PO SCH (20:54)
[2023-09-08] MEDS: OLANZapine 10 MG RAPDIS TABLET PO SCH (20:54)
[2023-09-08] MEDS: MIRTAZAPINE 15 MG TABLET PO SCH (20:56)
[2023-09-08] MEDS: MELATONIN 5 MG TABLET PO SCH (20:56)
[2023-09-08 21:17] VITALS: BP 142/77; PULSE 82; RESP 18; TEMP 97.6; O2SAT 99
[2023-09-08] MEDS: INSULIN LISPRO 100 UNITS/ML SQ PRN (21:17)
[2023-09-08 22:01] LABS: GLUCOMETER DEV NAME(LOC) 3E.C; GLUCOSE,POINT OF CARE 115 MG/DL (70-110)
[2023-09-09 06:46] LABS: GLUCOMETER DEV NAME(LOC) 3E.C; GLUCOSE,POINT OF CARE 121 MG/DL (70-110)
[2023-09-09] MEDS: MetFORMIN HCL 500 MG TABLET PO SCH ×2 (06:54→17:03)
[2023-09-09] MEDS: LITHIUM CARBONATE 300 MG CAPSULE PO SCH ×2 (06:54→17:03)
[2023-09-09] MEDS: INSULIN LISPRO 100 UNITS/ML SQ PRN ×2 (06:57→21:18)
[2023-09-09 09:11] VITALS: BP 131/89; PULSE 81; RESP 17; TEMP 97.9; O2SAT 97
[2023-09-09] MEDS: OMEGA-3/DHA/EPA/FISH OIL 1,000 MG CAPSULE PO SCH (10:44)
[2023-09-09] MEDS: GABAPENTIN 400 MG CAPSULE PO SCH ×4 (10:45→21:13)
[2023-09-09] MEDS: LISINOPRIL 10 MG TABLET PO SCH (10:45)
[2023-09-09] MEDS: DULoxetine HCL 60 MG CAPSULE PO SCH (10:45)
[2023-09-09] MEDS: DOCUSATE SODIUM 250 MG CAPSULE PO SCH ×2 (10:46→17:03)
[2023-09-09] MEDS: AmLODIPine BESYLATE 5 MG TABLET PO SCH (10:46)
[2023-09-09 11:46] LABS: GLUCOMETER DEV NAME(LOC) 3E.C; GLUCOSE,POINT OF CARE 115 MG/DL (70-110)
[2023-09-09 17:21] LABS: GLUCOMETER DEV NAME(LOC) 3E.C; GLUCOSE,POINT OF CARE 114 MG/DL (70-110)
[2023-09-09 20:43] VITALS: BP 124/67; PULSE 69; RESP 16; TEMP 97.2; O2SAT 97
[2023-09-09] MEDS: MIRTAZAPINE 15 MG TABLET PO SCH (21:13)
[2023-09-09] MEDS: ATORVASTATIN CALCIUM 20 MG TABLET PO SCH (21:14)
[2023-09-09] MEDS: MELATONIN 5 MG TABLET PO SCH (21:14)
[2023-09-09] MEDS: OLANZapine 10 MG RAPDIS TABLET PO SCH (21:14)
[2023-09-09 22:01] LABS: GLUCOMETER DEV NAME(LOC) 3E.C; GLUCOSE,POINT OF CARE 109 MG/DL (70-110)
[2023-09-10] MEDS: MetFORMIN HCL 500 MG TABLET PO SCH ×2 (06:43→16:20)
[2023-09-10] MEDS: LITHIUM CARBONATE 300 MG CAPSULE PO SCH ×2 (06:43→16:20)
[2023-09-10] MEDS: INSULIN LISPRO 100 UNITS/ML SQ PRN (06:45)
[2023-09-10 07:01] LABS: GLUCOMETER DEV NAME(LOC) 3E.C; GLUCOSE,POINT OF CARE 129 MG/DL (70-110)
[2023-09-10 09:00] VITALS: BP 110/63; PULSE 68; RESP 18; TEMP 97.4
[2023-09-10] MEDS: AmLODIPine BESYLATE 5 MG TABLET PO SCH (09:14)
[2023-09-10] MEDS: LISINOPRIL 10 MG TABLET PO SCH (09:14)
[2023-09-10] MEDS: OMEGA-3/DHA/EPA/FISH OIL 1,000 MG CAPSULE PO SCH (09:14)
[2023-09-10] MEDS: DULoxetine HCL 60 MG CAPSULE PO SCH (09:15)
[2023-09-10] MEDS: GABAPENTIN 400 MG CAPSULE PO SCH ×4 (09:15→21:10)
[2023-09-10] MEDS: DOCUSATE SODIUM 250 MG CAPSULE PO SCH ×2 (09:15→16:20)
[2023-09-10 11:41] LABS: GLUCOMETER DEV NAME(LOC) 3E.C; GLUCOSE,POINT OF CARE 89 MG/DL (70-110)
[2023-09-10 17:41] LABS: GLUCOMETER DEV NAME(LOC) 3E.C; GLUCOSE,POINT OF CARE 97 MG/DL (70-110)
[2023-09-10 21:01] LABS: GLUCOMETER DEV NAME(LOC) 3E.C; GLUCOSE,POINT OF CARE 100 MG/DL (70-110)
[2023-09-10] MEDS: MIRTAZAPINE 15 MG TABLET PO SCH (21:09)
[2023-09-10] MEDS: MELATONIN 5 MG TABLET PO SCH (21:09)
[2023-09-10] MEDS: ATORVASTATIN CALCIUM 20 MG TABLET PO SCH (21:09)
[2023-09-10] MEDS: OLANZapine 10 MG RAPDIS TABLET PO SCH (21:10)
[2023-09-10 21:24] VITALS: BP 105/69; PULSE 82; RESP 18; TEMP 98.3; O2SAT 99
[2023-09-11 06:01] LABS: GLUCOMETER DEV NAME(LOC) 3E.C; GLUCOSE,POINT OF CARE 119 MG/DL (70-110)
[2023-09-11] MEDS: MetFORMIN HCL 500 MG TABLET PO SCH ×2 (06:54→17:32)
[2023-09-11] MEDS: LITHIUM CARBONATE 300 MG CAPSULE PO SCH ×2 (06:54→17:32)
[2023-09-11] MEDS: LISINOPRIL 10 MG TABLET PO SCH ×2 (09:00→10:40)
[2023-09-11] MEDS: AmLODIPine BESYLATE 5 MG TABLET PO SCH ×2 (09:00→10:41)
[2023-09-11 10:17] VITALS: RESP 18
[2023-09-11] MEDS: OMEGA-3/DHA/EPA/FISH OIL 1,000 MG CAPSULE PO SCH (10:40)
[2023-09-11] MEDS: DOCUSATE SODIUM 250 MG CAPSULE PO SCH ×2 (10:40→17:32)
[2023-09-11] MEDS: GABAPENTIN 400 MG CAPSULE PO SCH ×4 (10:41→20:55)
[2023-09-11] MEDS: ChlorproMAZINE HCL 100 MG TABLET PO SCH ×2 (10:41→17:34)
[2023-09-11] MEDS: DULoxetine HCL 60 MG CAPSULE PO SCH (10:42)
[2023-09-11 11:21] LABS: GLUCOMETER DEV NAME(LOC) 3E.C; GLUCOSE,POINT OF CARE 158 MG/DL (70-110)
[2023-09-11] MEDS: INSULIN LISPRO 100 UNITS/ML SQ PRN ×2 (12:17→16:37)
[2023-09-11 16:51] LABS: GLUCOMETER DEV NAME(LOC) 3E.C; GLUCOSE,POINT OF CARE 114 MG/DL (70-110)
[2023-09-11] MEDS: ATORVASTATIN CALCIUM 20 MG TABLET PO SCH (20:55)
[2023-09-11] MEDS: MIRTAZAPINE 15 MG TABLET PO SCH (20:55)
[2023-09-11] MEDS: OLANZapine 10 MG RAPDIS TABLET PO SCH (20:56)
[2023-09-11] MEDS: MELATONIN 5 MG TABLET PO SCH (20:56)
[2023-09-11 21:06] LABS: GLUCOMETER DEV NAME(LOC) 3E.C; GLUCOSE,POINT OF CARE 122 MG/DL (70-110)
[2023-09-11 22:13] VITALS: BP 153/85; PULSE 80; RESP 19; TEMP 96.7; O2SAT 98
[2023-09-12 05:46] LABS: GLUCOMETER DEV NAME(LOC) 3E.C; GLUCOSE,POINT OF CARE 119 MG/DL (70-110)
[2023-09-12] MEDS: LITHIUM CARBONATE 300 MG CAPSULE PO SCH ×2 (06:59→17:41)
[2023-09-12] MEDS: MetFORMIN HCL 500 MG TABLET PO SCH ×2 (06:59→17:42)
[2023-09-12] MEDS: DOCUSATE SODIUM 250 MG CAPSULE PO SCH ×2 (09:13→17:42)
[2023-09-12] MEDS: OMEGA-3/DHA/EPA/FISH OIL 1,000 MG CAPSULE PO SCH (09:13)
[2023-09-12] MEDS: GABAPENTIN 400 MG CAPSULE PO SCH ×4 (09:13→21:16)
[2023-09-12] MEDS: ChlorproMAZINE HCL 100 MG TABLET PO SCH ×2 (09:14→17:42)
[2023-09-12] MEDS: LISINOPRIL 10 MG TABLET PO SCH (09:14)
[2023-09-12] MEDS: DULoxetine HCL 60 MG CAPSULE PO SCH (09:14)
[2023-09-12] MEDS: AmLODIPine BESYLATE 5 MG TABLET PO SCH (09:14)
[2023-09-12 09:49] VITALS: BP 155/108; PULSE 63; RESP 17; TEMP 97.5; O2SAT 95
[2023-09-12] MEDS: INSULIN LISPRO 100 UNITS/ML SQ PRN ×3 (11:48→21:26)
[2023-09-12 12:01] LABS: GLUCOMETER DEV NAME(LOC) 3E.C; GLUCOSE,POINT OF CARE 111 MG/DL (70-110)
[2023-09-12 17:26] LABS: GLUCOMETER DEV NAME(LOC) 3E.C; GLUCOSE,POINT OF CARE 94 MG/DL (70-110)
[2023-09-12] MEDS: MELATONIN 5 MG TABLET PO SCH (21:16)
[2023-09-12] MEDS: ATORVASTATIN CALCIUM 20 MG TABLET PO SCH (21:16)
[2023-09-12] MEDS: MIRTAZAPINE 15 MG TABLET PO SCH (21:16)
[2023-09-12] MEDS: OLANZapine 10 MG RAPDIS TABLET PO SCH (21:16)
[2023-09-12 21:41] LABS: GLUCOMETER DEV NAME(LOC) 3E.C; GLUCOSE,POINT OF CARE 101 MG/DL (70-110)
[2023-09-12 22:58] VITALS: BP 112/62; PULSE 88; RESP 18; TEMP 97.5; O2SAT 96
[2023-09-13 06:31] LABS: GLUCOMETER DEV NAME(LOC) 3E.C; GLUCOSE,POINT OF CARE 88 MG/DL (70-110)
[2023-09-13] MEDS: INSULIN LISPRO 100 UNITS/ML SQ PRN ×2 (06:37→11:19)
[2023-09-13] MEDS: MetFORMIN HCL 500 MG TABLET PO SCH ×2 (06:52→17:30)
[2023-09-13] MEDS: LITHIUM CARBONATE 300 MG CAPSULE PO SCH ×2 (06:52→16:34)
[2023-09-13] MEDS: OMEGA-3/DHA/EPA/FISH OIL 1,000 MG CAPSULE PO SCH (09:32)
[2023-09-13] MEDS: GABAPENTIN 400 MG CAPSULE PO SCH ×4 (09:32→21:01)
[2023-09-13] MEDS: ChlorproMAZINE HCL 100 MG TABLET PO SCH ×2 (09:32→16:33)
[2023-09-13] MEDS: DOCUSATE SODIUM 250 MG CAPSULE PO SCH ×2 (09:32→16:34)
[2023-09-13] MEDS: DULoxetine HCL 60 MG CAPSULE PO SCH (09:32)
[2023-09-13] MEDS: LISINOPRIL 10 MG TABLET PO SCH (10:38)
[2023-09-13] MEDS: AmLODIPine BESYLATE 5 MG TABLET PO SCH (10:38)
[2023-09-13 10:39] VITALS: BP 125/79; PULSE 80; RESP 20; TEMP 97.5; O2SAT 98
[2023-09-13 11:31] LABS: GLUCOMETER DEV NAME(LOC) 3E.C; GLUCOSE,POINT OF CARE 156 MG/DL (70-110)
[2023-09-13 16:56] LABS: GLUCOMETER DEV NAME(LOC) 3E.C; GLUCOSE,POINT OF CARE 91 MG/DL (70-110)
[2023-09-13 20:56] LABS: GLUCOMETER DEV NAME(LOC) 3E.C; GLUCOSE,POINT OF CARE 106 MG/DL (70-110)
[2023-09-13] MEDS: MELATONIN 5 MG TABLET PO SCH (21:01)
[2023-09-13] MEDS: OLANZapine 10 MG RAPDIS TABLET PO SCH (21:02)
[2023-09-13] MEDS: ATORVASTATIN CALCIUM 20 MG TABLET PO SCH (21:02)
[2023-09-13] MEDS: MIRTAZAPINE 15 MG TABLET PO SCH (21:02)
[2023-09-14 00:01] VITALS: RESP 18
[2023-09-14 06:16] LABS: GLUCOMETER DEV NAME(LOC) 3E.C; GLUCOSE,POINT OF CARE 138 MG/DL (70-110)
[2023-09-14] MEDS: LITHIUM CARBONATE 300 MG CAPSULE PO SCH ×2 (06:57→16:49)
[2023-09-14] MEDS: MetFORMIN HCL 500 MG TABLET PO SCH ×2 (06:57→17:47)
[2023-09-14] MEDS: OMEGA-3/DHA/EPA/FISH OIL 1,000 MG CAPSULE PO SCH (08:17)
[2023-09-14] MEDS: AmLODIPine BESYLATE 5 MG TABLET PO SCH (08:17)
[2023-09-14] MEDS: DULoxetine HCL 60 MG CAPSULE PO SCH (08:17)
[2023-09-14] MEDS: GABAPENTIN 400 MG CAPSULE PO SCH ×4 (08:17→21:10)
[2023-09-14] MEDS: LISINOPRIL 10 MG TABLET PO SCH (08:17)
[2023-09-14] MEDS: DOCUSATE SODIUM 250 MG CAPSULE PO SCH ×2 (08:17→16:49)
[2023-09-14] MEDS: ChlorproMAZINE HCL 100 MG TABLET PO SCH ×2 (08:17→16:49)
[2023-09-14 11:13] VITALS: BP 117/76; PULSE 87; RESP 18; TEMP 97.6
[2023-09-14 11:41] LABS: GLUCOMETER DEV NAME(LOC) 3E.C; GLUCOSE,POINT OF CARE 103 MG/DL (70-110)
[2023-09-14 17:02] LABS: GLUCOMETER DEV NAME(LOC) 3E.C; GLUCOSE,POINT OF CARE 127 MG/DL (70-110)
[2023-09-14 20:10] VITALS: BP 132/72; PULSE 78; RESP 18; TEMP 97.5; O2SAT 98
[2023-09-14] MEDS: MIRTAZAPINE 15 MG TABLET PO SCH (21:10)
[2023-09-14] MEDS: MELATONIN 5 MG TABLET PO SCH (21:10)
[2023-09-14] MEDS: OLANZapine 10 MG RAPDIS TABLET PO SCH (21:10)
[2023-09-14] MEDS: ATORVASTATIN CALCIUM 20 MG TABLET PO SCH (21:10)
[2023-09-14 21:21] LABS: GLUCOMETER DEV NAME(LOC) 3E.C; GLUCOSE,POINT OF CARE 83 MG/DL (70-110)
[2023-09-15 06:31] LABS: GLUCOMETER DEV NAME(LOC) 3E.C; GLUCOSE,POINT OF CARE 79 MG/DL (70-110)
[2023-09-15] MEDS: LITHIUM CARBONATE 300 MG CAPSULE PO SCH ×2 (06:37→16:48)
[2023-09-15] MEDS: MetFORMIN HCL 500 MG TABLET PO SCH ×2 (06:37→16:48)
[2023-09-15] MEDS: DOCUSATE SODIUM 250 MG CAPSULE PO SCH ×2 (09:00→16:48)
[2023-09-15 10:00] VITALS: BP 111/66; PULSE 84; RESP 18; TEMP 97.3; O2SAT 95
[2023-09-15] MEDS: OMEGA-3/DHA/EPA/FISH OIL 1,000 MG CAPSULE PO SCH (10:05)
[2023-09-15] MEDS: DULoxetine HCL 60 MG CAPSULE PO SCH (10:06)
[2023-09-15] MEDS: ChlorproMAZINE HCL 100 MG TABLET PO SCH ×2 (10:06→16:47)
[2023-09-15] MEDS: AmLODIPine BESYLATE 5 MG TABLET PO SCH (10:06)
[2023-09-15] MEDS: LISINOPRIL 10 MG TABLET PO SCH (10:06)
[2023-09-15] MEDS: GABAPENTIN 400 MG CAPSULE PO SCH ×4 (10:06→20:31)
[2023-09-15] MEDS: INSULIN LISPRO 100 UNITS/ML SQ PRN ×3 (11:50→21:42)
[2023-09-15 11:56] LABS: GLUCOMETER DEV NAME(LOC) 3E.C; GLUCOSE,POINT OF CARE 157 MG/DL (70-110)
[2023-09-15 17:47] LABS: GLUCOMETER DEV NAME(LOC) 3E.C; GLUCOSE,POINT OF CARE 148 MG/DL (70-110)
[2023-09-15] MEDS: MELATONIN 5 MG TABLET PO SCH (20:29)
[2023-09-15] MEDS: OLANZapine 10 MG RAPDIS TABLET PO SCH (20:30)
[2023-09-15] MEDS: ATORVASTATIN CALCIUM 20 MG TABLET PO SCH (20:31)
[2023-09-15] MEDS: MIRTAZAPINE 15 MG TABLET PO SCH (20:31)
[2023-09-15 21:30] LABS: GLUCOMETER DEV NAME(LOC) 3E.C; GLUCOSE,POINT OF CARE 111 MG/DL (70-110)
[2023-09-15 22:38] VITALS: BP 124/75; PULSE 75; RESP 19; TEMP 97; O2SAT 98
[2023-09-16] MEDS: LITHIUM CARBONATE 300 MG CAPSULE PO SCH ×2 (07:05→17:21)
[2023-09-16] MEDS: MetFORMIN HCL 500 MG TABLET PO SCH ×2 (07:05→17:21)
[2023-09-16] MEDS: INSULIN LISPRO 100 UNITS/ML SQ PRN ×3 (07:08→21:17)
[2023-09-16 07:16] LABS: GLUCOMETER DEV NAME(LOC) 3E.C; GLUCOSE,POINT OF CARE 141 MG/DL (70-110)
[2023-09-16] MEDS: OMEGA-3/DHA/EPA/FISH OIL 1,000 MG CAPSULE PO SCH (08:43)
[2023-09-16] MEDS: DOCUSATE SODIUM 250 MG CAPSULE PO SCH ×2 (08:43→17:21)
[2023-09-16] MEDS: ChlorproMAZINE HCL 100 MG TABLET PO SCH ×2 (08:44→17:21)
[2023-09-16] MEDS: AmLODIPine BESYLATE 5 MG TABLET PO SCH (08:44)
[2023-09-16] MEDS: LISINOPRIL 10 MG TABLET PO SCH (08:44)
[2023-09-16] MEDS: GABAPENTIN 400 MG CAPSULE PO SCH ×4 (08:44→21:01)
[2023-09-16] MEDS: DULoxetine HCL 60 MG CAPSULE PO SCH (08:45)
[2023-09-16 11:31] LABS: GLUCOMETER DEV NAME(LOC) 3E.C; GLUCOSE,POINT OF CARE 159 MG/DL (70-110)
[2023-09-16 17:17] VITALS: RESP 18
[2023-09-16] MEDS: IBUPROFEN 600 MG TABLET PO PRN (17:17)
[2023-09-16 17:37] LABS: GLUCOMETER DEV NAME(LOC) 3E.C; GLUCOSE,POINT OF CARE 102 MG/DL (70-110)
[2023-09-16 20:42] VITALS: BP 102/64; PULSE 61; RESP 18; TEMP 96.8; O2SAT 97
[2023-09-16 20:46] LABS: GLUCOMETER DEV NAME(LOC) 3E.C; GLUCOSE,POINT OF CARE 114 MG/DL (70-110)
[2023-09-16] MEDS: OLANZapine 10 MG RAPDIS TABLET PO SCH (21:00)
[2023-09-16] MEDS: MELATONIN 5 MG TABLET PO SCH (21:01)
[2023-09-16] MEDS: ATORVASTATIN CALCIUM 20 MG TABLET PO SCH (21:01)
[2023-09-16] MEDS: MIRTAZAPINE 15 MG TABLET PO SCH (21:01)
[2023-09-17 06:26] LABS: GLUCOMETER DEV NAME(LOC) 3E.C; GLUCOSE,POINT OF CARE 113 MG/DL (70-110)
[2023-09-17] MEDS: INSULIN LISPRO 100 UNITS/ML SQ PRN ×3 (06:38→21:11)
[2023-09-17] MEDS: LITHIUM CARBONATE 300 MG CAPSULE PO SCH ×2 (06:51→16:54)
[2023-09-17] MEDS: MetFORMIN HCL 500 MG TABLET PO SCH ×2 (06:51→16:54)
[2023-09-17 09:03] VITALS: BP 130/73; PULSE 86; RESP 18; TEMP 98; O2SAT 97
[2023-09-17] MEDS: AmLODIPine BESYLATE 5 MG TABLET PO SCH (09:19)
[2023-09-17] MEDS: ChlorproMAZINE HCL 100 MG TABLET PO SCH ×2 (09:19→16:54)
[2023-09-17] MEDS: OMEGA-3/DHA/EPA/FISH OIL 1,000 MG CAPSULE PO SCH (09:19)
[2023-09-17] MEDS: DOCUSATE SODIUM 250 MG CAPSULE PO SCH ×2 (09:19→16:54)
[2023-09-17] MEDS: GABAPENTIN 400 MG CAPSULE PO SCH ×4 (09:19→20:49)
[2023-09-17] MEDS: LISINOPRIL 10 MG TABLET PO SCH (09:20)
[2023-09-17] MEDS: DULoxetine HCL 60 MG CAPSULE PO SCH (09:21)
[2023-09-17 12:01] LABS: GLUCOMETER DEV NAME(LOC) 3E.C; GLUCOSE,POINT OF CARE 176 MG/DL (70-110)
[2023-09-17 12:14] LABS: COVID AG,FIA SOURCE NASAL SWAB
[2023-09-17 12:30] LABS: SARS-COV2 (COVID) ANTIGEN,FIA Negative (Negative)
[2023-09-17 17:42] LABS: GLUCOMETER DEV NAME(LOC) 3E.C; GLUCOSE,POINT OF CARE 106 MG/DL (70-110)
[2023-09-17 20:49] VITALS: RESP 19
[2023-09-17] MEDS: MELATONIN 5 MG TABLET PO SCH (20:49)
[2023-09-17] MEDS: MIRTAZAPINE 15 MG TABLET PO SCH (20:49)
[2023-09-17] MEDS: ATORVASTATIN CALCIUM 20 MG TABLET PO SCH (20:49)
[2023-09-17] MEDS: OLANZapine 10 MG RAPDIS TABLET PO SCH (20:50)
[2023-09-17 20:51] LABS: GLUCOMETER DEV NAME(LOC) 3E.C; GLUCOSE,POINT OF CARE 100 MG/DL (70-110)
[2023-09-18 06:26] LABS: GLUCOMETER DEV NAME(LOC) 3E.C; GLUCOSE,POINT OF CARE 112 MG/DL (70-110)
[2023-09-18] MEDS: INSULIN LISPRO 100 UNITS/ML SQ PRN ×5 (06:39→20:57)
[2023-09-18] MEDS: LITHIUM CARBONATE 300 MG CAPSULE PO SCH ×2 (06:51→17:21)
[2023-09-18] MEDS: MetFORMIN HCL 500 MG TABLET PO SCH ×2 (06:51→17:21)
[2023-09-18] MEDS: OMEGA-3/DHA/EPA/FISH OIL 1,000 MG CAPSULE PO SCH (08:13)
[2023-09-18] MEDS: ChlorproMAZINE HCL 100 MG TABLET PO SCH ×2 (08:13→17:21)
[2023-09-18] MEDS: DOCUSATE SODIUM 250 MG CAPSULE PO SCH ×2 (08:14→17:21)
[2023-09-18] MEDS: DULoxetine HCL 60 MG CAPSULE PO SCH (08:14)
[2023-09-18] MEDS: GABAPENTIN 400 MG CAPSULE PO SCH ×4 (08:15→20:57)
[2023-09-18 08:17] VITALS: BP 94/62; PULSE 72; RESP 18; TEMP 97.6; O2SAT 98
[2023-09-18] MEDS: AmLODIPine BESYLATE 5 MG TABLET PO SCH (09:00)
[2023-09-18] MEDS: LISINOPRIL 10 MG TABLET PO SCH (09:00)
[2023-09-18 12:06] LABS: GLUCOMETER DEV NAME(LOC) 3E.C; GLUCOSE,POINT OF CARE 116 MG/DL (70-110)
[2023-09-18 17:57] LABS: GLUCOMETER DEV NAME(LOC) 3E.C; GLUCOSE,POINT OF CARE 117 MG/DL (70-110)
[2023-09-18 20:56] LABS: GLUCOMETER DEV NAME(LOC) 3E.C; GLUCOSE,POINT OF CARE 106 MG/DL (70-110)
[2023-09-18] MEDS: ATORVASTATIN CALCIUM 20 MG TABLET PO SCH (20:56)
[2023-09-18] MEDS: MIRTAZAPINE 15 MG TABLET PO SCH (20:56)
[2023-09-18] MEDS: OLANZapine 10 MG RAPDIS TABLET PO SCH (20:56)
[2023-09-18] MEDS: MELATONIN 5 MG TABLET PO SCH (20:57)
[2023-09-18 21:01] VITALS: BP 121/66; PULSE 63; RESP 18; TEMP 97.6; O2SAT 97
[~2023-09-19] VITALS: Ht 167.6 cm; Wt 121.6 kg
[2023-09-19 06:17] LABS: GLUCOMETER DEV NAME(LOC) 3E.C; GLUCOSE,POINT OF CARE 102 MG/DL (70-110)
[2023-09-19] MEDS: LITHIUM CARBONATE 300 MG CAPSULE PO SCH (06:56)
[2023-09-19] MEDS: INSULIN LISPRO 100 UNITS/ML SQ PRN ×2 (06:56→11:51)
[2023-09-19] MEDS: MetFORMIN HCL 500 MG TABLET PO SCH (06:56)
[2023-09-19] MEDS: AmLODIPine BESYLATE 5 MG TABLET PO SCH (09:00)
[2023-09-19] MEDS: LISINOPRIL 10 MG TABLET PO SCH (09:00)
[2023-09-19] MEDS: GABAPENTIN 400 MG CAPSULE PO SCH ×2 (09:51→13:38)
[2023-09-19] MEDS: DULoxetine HCL 60 MG CAPSULE PO SCH (09:51)
[2023-09-19] MEDS: DOCUSATE SODIUM 250 MG CAPSULE PO SCH (09:51)
[2023-09-19] MEDS: ChlorproMAZINE HCL 100 MG TABLET PO SCH (09:52)
[2023-09-19] MEDS: OMEGA-3/DHA/EPA/FISH OIL 1,000 MG CAPSULE PO SCH (09:52)
[2023-09-19 09:55] VITALS: BP 95/57; PULSE 71; RESP 18; TEMP 97.8; O2SAT 95
[2023-09-19 11:36] LABS: GLUCOMETER DEV NAME(LOC) 3E.C; GLUCOSE,POINT OF CARE 127 MG/DL (70-110)
[~2023-09-19 15:58] MED LIST changes: +-PHARMACY VACCINE NOTE- MISC ONE; +ACET-2247 PO; +ACETAMINOPHEN 325 MG TABLET PO PRN; +ALBU2.5V39 NEB; +AmLODIPine BESYLATE 5 MG TABLET PO ONE; +BISA10SU11 PR; +ChlorproMAZINE HCL 100 MG TABLET PO ONE; +ChlorproMAZINE HCL 50 MG/2 ML AMP ONE; +CloNIDine HCL 0.1 MG TABLET PO PRN; +DEXTROSE 50%-WATER 25 GM/50 ML SYRINGE IVP PRN; +DICLOFENAC SODIUM 1% 100 GM GEL [4GM] TP PRN; +DIVALPROEX SODIUM 500 MG ER TABLET PO ONE; +DOCU-412 PO; +DULO-113 PO; +DULoxetine HCL 20 MG CAPSULE PO SCH; +DULoxetine HCL 60 MG CAPSULE PO SCH; +DiphenhydrAMINE HCL 50 MG/ML VIAL IM ONE; +DiphenhydrAMINE HCL 50 MG/ML VIAL ONE; +FLUoxetine HCL 20 MG CAPSULE PO ONE; +FLUoxetine HCL 20 MG CAPSULE PO SCH; +GABAPENTIN 400 MG CAPSULE PO SCH; +GLUCAGON,HUMAN RECOMBINANT 1 MG VIAL IM PRN; +HALOPERIDOL LACTATE 5 MG/ML VIAL IM ONE; +HALOPERIDOL LACTATE 5 MG/ML VIAL ONE; +INFLUENZA VIRUS VACCINE QVS 2022-23 (6MO+)/PF 60 MCG/0.5 ML SYRINGE IM. ONE; +INSU100V SQ; +INSULIN LISPRO 100 UNITS/ML SQ PRN; +LISI-894 PO; +LISINOPRIL 10 MG TABLET PO ONE; +LITH300C3 PO; +LORazepam 2 MG TABLET PO ONE; +LORazepam 2 MG TABLET PO STA; +LORazepam 2 MG/ML VIAL IM ONE; +LORazepam 2 MG/ML VIAL ONE; +LURASIDONE HCL 80 MG TABLET PO ONE; +MAG HYDROX/ALUMINUM HYD/SIMETH ES 30 ML SUSPENSION UDCUP PO PRN; +MAGNESIUM HYDROXIDE SUSPENSION 30 ML UDCUP PO PRN; +METF-1211 PO; +METHYL SALICYLATE/MENTHOL 85 GM CREAM TP PRN; +MIRTAZAPINE 15 MG TABLET PO ONE; +MetFORMIN HCL 500 MG ER TABLET PO ONE; +NALT50TA PO; +OLAN10TA26 PO; +OLANZapine 5 MG RAPDIS TABLET PO SCH; +PANT-31 PO; +SODIUM CHLORIDE 1 GM TABLET PO ONE; +TRIH5TAB4 PO; +TRIHEXYPHENIDYL HCL 5 MG TABLET PO ONE; +TUBERCULIN, PURIFIED PROTEIN DERIVATIVE 5 TU/0.1 ML SYRINGE ID ONE
== END | disposition home or self-care (01) | DRG 750 ==
LOC: EMS 09-07 20:43 → B2S 09-08 09:41 → B3A 07-26 20:19 → B2S 07-31 08:24 → 3EI 08-20 21:20
PROVIDERS: ADMIT Psychiatry & Neurology Psychiatry; ATTEND Psychiatry & Neurology Psychiatry
PROC: GZHZZZZ Group Psychotherapy (ICD-10-PCS; principal; 2022-09-14)
DX: F25.1 Schizoaffective disorder, depressive type (principal); U07.1 COVID-19; E87.1 Hypo-osmolality and hyponatremia; E11.9 Type 2 diabetes mellitus without complications; E86.0 Dehydration; E78.5 Hyperlipidemia, unspecified; F15.10 Other stimulant abuse, uncomplicated; D64.9 Anemia, unspecified; F25.0 Schizoaffective disorder, bipolar type; G89.29 Other chronic pain; G47.00 Insomnia, unspecified; F19.11 Other psychoactive substance abuse, in remission; I10 Essential (primary) hypertension; K21.9 Gastro-esophageal reflux disease without esophagitis; Z86.16 Personal history of COVID-19; Z79.84 Long term (current) use of oral hypoglycemic drugs; Z79.899 Other long term (current) drug therapy; Z59.00 Homelessness unspecified; Z74.01 Bed confinement status; Z87.891 Personal history of nicotine dependence; Z91.199 Patient's noncompliance with other medical treatment and regimen due to unspecified reason; Z59.02 Unsheltered homelessness
CPT/HCPCS: 70450; 80053; 80061; 80164; 80178; 80307; 81003; 82962; 83036; 84550; 85025; 85651; 86140; 87081; 99285; G0480; J1200; J1630; J2060; J3230; Q9967